=== PATIENT | male | born 1980 | race Caucasian/White ===

== ENCOUNTER 2019-02-24 21:15 | Emergency (ER) | payer BC, SELFPAY ==
[2019-02-24 21:19] VITALS: BP 121/72; PULSE 58; RESP 16; TEMP 36.8; O2SAT 99
--- NOTE | 2019-02-24 21:27 | DI.RAD_ITS ---
SYMPTOM/DIAGNOSIS: PAIN, S/P FALL LEFT FOOT: Three views. No bone or joint abnormality is identified. There does appear to be soft tissue swelling of the foot laterally. No radiopaque foreign bodies are seen in the foot. IMPRESSION: No acute fracture or dislocation. LEFT KNEE: Three views. No bone, joint or soft tissue abnormality is identified.
--- NOTE | 2019-02-24 21:31 | ED.GENADUL_ITS ---
Discharge Plan Disposition Patient Disposition: HOME Condition: Stable Discharge Details Chief Complaint: Orthopedic Clinical Impression: Contusion of foot, left, Contusion of left knee Primary Care Provider: Radhika Xiao ED Provider: Wilbur Valle Home Meds and New Rx's Prescriptions: No Action multivitamin [Daily Multi-Vitamin] 1 EACH tablet 1 tab PO DIRECTED RF: 0 ascorbic acid (vitamin C) [Vitamin C] 500 MG tablet 500 mg PO BID RF: 0 ferrous sulfate 325 MG tablet,delayed release (DR/EC) 1 tab PO BID RF: 0 cholecalciferol (vitamin D3) [Vitamin D3] 1,000 UNIT capsule 1,000 unit PO DAILY RF: 0 vitamin O59-hqgss acid 1 EACH tablet 1 ea PO DAILY RF: 0 omeprazole 40 MG capsule,delayed release(DR/EC) 40 mg PO DAILY RF: 0 clonidine HCl 0.1 mg Tablet 0.05 mg PO QHS RF: 0 sertraline [Zoloft] 20 mg/mL Concentrate 70 mg PO DAILY RF: 0 Discharge Instructions Instructions: Contusion in Adults (ED) Stand Alone Forms: Work Release Medical Decision Making 38 yo male states last week he was pushing a mower up with hill when he tripped and has had pain in medial left knee and foot since. Denies loc or hitting his head during fall or presyncope/syncope symptoms. Has no chest pain or pain elsewhere. He has full rom of the left hip, knee, ankle and toes with intact sensation and 2+ dp/pt pulses. Has pain over 4th and 5th mid metatarsals. Has pain over medial left knee. I suspect strain vs contusion but will xray to eval for fx xrays negative, will d/c and have him f/u with pcp if pain continues, return precautions given Differential Diagnosis sprain, strain, contusion, fx Imaging Data Radiologic Study: Attestation: I personally reviewed and interpreted this imaging study as follows: Imaging: X-Ray Radiologist's impression: no acute findings on foot xray Radiologic Study #2: Attestation: I personally reviewed and interpreted this imaging study as follows: Imaging: X-Ray Radiologist's impression: no acute findings on knee xray HPI General Mode of arrival: ambulatory . Date/Time Provider Initiated Documentation: 02/24/19 21:15 . Limitations to Documentation: no limitations . Information obtained by: patient . History of Present Illness 38 year old M presents to the emergency department with the chief complaint of left foot pain, described as moderate, Quality is described as aching, and is localized to the left and lower extremity. Patient reports no radiation. Patient started experiencing this day(s) (6) and it has been constant. No relieving factors improve symptom(s), and Rest improves symptom(s), Patient notes other (left knee pain). Patient did receive the following treatments prior to arrival, none Related Data Home Medications Medication Instructions Recorded Confirmed multivitamin [Daily Multi-Vitamin] 1 tab PO DIRECTED 03/02/13 01/07/18 ascorbic acid (vitamin C) [Vitamin 500 mg PO BID 11/26/16 01/07/18 C] cholecalciferol (vitamin D3) 1,000 unit PO DAILY 11/26/16 01/07/18 [Vitamin D3] ferrous sulfate 1 tab PO BID 11/26/16 01/07/18 vitamin D58-bndsx acid 1 ea PO DAILY 11/26/16 01/07/18 omeprazole 40 mg PO DAILY 05/29/17 01/07/18 clonidine HCl 0.05 mg PO QHS 02/24/19 02/24/19 sertraline [Zoloft] 70 mg PO DAILY 02/24/19 02/24/19 Allergies Allergy/AdvReac Type Severity Reaction Status Date / Time erythromycin base Allergy Intermediate Other (See Unverified 02/24/19 21:25 Comment) General Stated Complaint: Orthopedic DEWAYNE: 4 Review of Systems Review of Systems All systems reviewed & are unremarkable except as noted in HPI and below Constitutional Denies chills, Denies fever(s) and Denies weakness Cardiovascular Denies chest pain and Denies dyspnea Respiratory Denies cough and Denies dyspnea Gastrointestinal Denies abdominal pain, Denies nausea and Denies vomiting Neurologic Denies weakness PFSH Medical History Depression (Chronic) Surgical History History of gastric bypass (Acute) Social History Smoking/Tobacco Use Status: Never Alcohol Intake: current Alcohol Intake frequency: a few times a month Drug use: Never Do you feel safe in your relationship?: Yes Exam Const General: no acute distress Orientation: alert HENMT Head: normal to inspection Ears: external ears normal General nose exam: external nose normal Mouth: moist mucous membranes Eyes General: appearance normal, both eyes and all related structures Neck Neck: normal visual inspection Resp Effort & Inspection: normal respiratory effort and able to speak in complete sentences Cardio Rate: regular rate Skin General skin exam: no rashes or lesions noted Neuro General: alert and oriented x3 Extrem General: normal to inspection Psych Mental Status: mental status grossly normal Course Vital Signs Temperature 36.8 C 02/24/19 21:19 Pulse 58 L 02/24/19 21:19 Respiratory Rate 16 02/24/19 21:19 Blood Pressure 121/72 02/24/19 21:19 Pulse Oximetry 99 02/24/19 21:19 Temperature 36.8 C 02/24/19 21:19 Temperature Source Skin 02/24/19 21:19 Pulse 58 L 02/24/19 21:19 Respiratory Rate 16 02/24/19 21:19 Respiratory Effort Non-Labored 02/24/19 21:21 Blood Pressure 121/72 02/24/19 21:19 Pulse Oximetry 99 02/24/19 21:19 Pain Level 5 02/24/19 21:22
--- NOTE | 2019-02-24 22:16 | DI.VRAD_ITS ---
EXAM: XR Left Foot Complete EXAM DATE/TIME: 02/24/2019 10:07 PM CLINICAL HISTORY: 38 years old, male; Foot and knee; Left; Patient HX: Fall with L knee and lfoot pain TECHNIQUE: Imaging protocol: XR Left foot. Views: 3 or more views. COMPARISON: CR LEFT FOOT COMPLETE 12/26/2016 9:05 PM FINDINGS: Bones/joints: Typical for age. No evidence of acute fracture. Soft tissues: Unremarkable. IMPRESSION: No acute findings. Dictated and Authenticated by: Shashank Aden MD. Ordering:OZZY Bowles MD
--- NOTE | 2019-02-24 22:17 | DI.VRAD_ITS ---
EXAM: XR Left Knee EXAM DATE/TIME: 02/24/2019 10:07 PM CLINICAL HISTORY: 38 years old, male; Foot and knee; Left; Patient HX: Fall with L knee and lfoot pain TECHNIQUE: Imaging protocol: XR Left knee. Views: 3 views. COMPARISON: No relevant prior studies available. FINDINGS: Bones/joints: Typical for age. No evidence of acute fracture. Soft tissues: Unremarkable. IMPRESSION: No acute findings. Dictated and Authenticated by: Shashank Aden MD. Ordering:OZZY Bowles MD
== END 2019-02-24 22:38 | disposition home or self-care (01) ==
PROVIDERS: Emergency Provider Emergency Medicine; PCP Nurse Practitioner
DX: S80.02XA Contusion of left knee, initial encounter (principal); S90.32XA Contusion of left foot, initial encounter; W01.0XXA Fall on same level from slipping, tripping and stumbling without subsequent striking against object, initial encounter
CPT/HCPCS: 29505; 73562; 99284; 73630; 99282; L1810

== ENCOUNTER 2019-03-16 10:02 | Emergency (ER) | payer BC, SELFPAY ==
[2019-03-16 10:08] VITALS: BP 107/65; PULSE 66; RESP 16; TEMP 36.6; O2SAT 96
--- NOTE | 2019-03-16 10:27 | DI.RAD_ITS ---
SYMPTOM/DIAGNOSIS: CRUSH INJURY TO MCP OF 4TH DIGIT RIGHT HAND: No fracture or dislocation is seen. IMPRESSION: Negative right hand.
--- NOTE | 2019-03-16 10:28 | W.ED.GENAD ---
Discharge Plan Disposition Patient Disposition: HOME Condition: Stable Discharge Details Chief Complaint: Orthopedic Clinical Impression: Contusion of hand including fingers, Abrasion of hand Primary Care Provider: Radhika Xiao ED Provider: Andrew Jauregui Home Meds and New Rx's Prescriptions: Continued multivitamin [Daily Multi-Vitamin] 1 EACH tablet 1 tab PO DIRECTED RF: 0 ascorbic acid (vitamin C) [Vitamin C] 500 MG tablet 500 mg PO DAILY RF: 0 ferrous sulfate 325 MG tablet,delayed release (DR/EC) 1 tab PO DAILY RF: 0 cholecalciferol (vitamin D3) [Vitamin D3] 1,000 UNIT capsule 2,000 unit PO DAILY RF: 0 vitamin I23-fjfyp acid 1 EACH tablet 1 ea PO DAILY RF: 0 clonidine HCl 0.1 mg Tablet 0.1 mg PO QHS RF: 0 sertraline [Zoloft] 20 mg/mL Concentrate 100 mg PO DAILY RF: 0 Discharge Instructions Instructions: Contusion in Adults (ED), Abrasion (ED) Additional Instructions: He may continue the ice the area of injury along with use [id number] pain medication as needed for any further discomfort. For any new or significant worsening of symptoms feel free to return the emergency department otherwise follow-up with your primary care provider if not improving. Stand Alone Forms: Work Release Referrals: Radhika Xiao [Primary Care Provider] - (As needed for reassessment) Medical Decision Making Patient presenting to the emergency department for chief complaint of right hand injury. Patient states he was at work approximately 2 hours prior to arrival his hand was slammed into a gate door. Since then there was significant bleeding from a laceration which is now stopped bleeding but patient is still having discomfort to the MCP of the fourth digit. Patient denies any other injury or trauma. Patient does have slight abrasion to the dorsal and palmar aspect of the MCP, tenderness to the fourth MCP, and pain and discomfort with range of motion of the MCP. There is no rotation of the finger, sensation and pulse along with motor is intact. Plan to do radiological imaging to rule out fracture. Patient denies any need for pain medication pending result. Review of radiological imaging along with radiologist interpretation shows no acute findings noted. I feel the patient suffered small abrasion and contusion of the right hand. Patient was encouraged to continue to ice it and use any [id number] pain medication as needed for discomfort. Return precautions discussed. After discussion of diagnosis and plan of care patient has no further needs, questions, or concerns and states clear understanding to return to the emergency department for any worsening symptoms. HPI General Mode of arrival: ambulatory. Date/Time Provider Initiated Documentation: 03/16/19 10:11. Limitations to Documentation: no limitations. Information obtained by: patient and RN notes reviewed. History of Present Illness 38 year old M presents to the emergency department with the chief complaint of Right hand crush injury, described as mild, with intensity rated at 4. Quality is described as aching, and is localized to the right and upper extremity. Patient started experiencing this hour(s) (2) and it has been constant. Patient notes no other symptoms.. Patient did receive the following treatments prior to arrival, none Related Data Home Medications Medication Instructions Recorded Confirmed multivitamin [Daily Multi-Vitamin] 1 tab PO DIRECTED 03/02/13 03/16/19 ascorbic acid (vitamin C) [Vitamin 500 mg PO DAILY 11/26/16 03/16/19 C] cholecalciferol (vitamin D3) 2,000 unit PO DAILY 11/26/16 03/16/19 [Vitamin D3] ferrous sulfate 1 tab PO DAILY 11/26/16 03/16/19 vitamin H90-hlofq acid 1 ea PO DAILY 11/26/16 03/16/19 clonidine HCl 0.1 mg PO QHS 02/24/19 03/16/19 sertraline [Zoloft] 100 mg PO DAILY 02/24/19 03/16/19 Allergies Allergy/AdvReac Type Severity Reaction Status Date / Time erythromycin base Allergy Intermediate Other (See Unverified 03/16/19 10:16 Comment) General Stated Complaint: Orthopedic DEWAYNE: 3 Review of Systems Musculoskeletal Reports as per HPI, Denies deformity, Denies joint swelling, Denies limited range of motion, Denies numbness and Denies tingling Integumentary/Breasts Denies erythema, Denies rash, Denies sores and Reports wounds Neurologic Denies numbness and Denies tingling PFSH Medical History Depression (Chronic) Surgical History History of gastric bypass (Acute) Social History Smoking/Tobacco Use Status: Former Tobacco Use Alcohol Intake: current Alcohol Intake frequency: a few times a month Drug use: Never Do you feel safe in your relationship?: Yes Exam Const General: cooperative and no acute distress Orientation: alert, awake and oriented x3 Resp Effort & Inspection: normal respiratory effort and able to speak in complete sentences Cardio Rate: regular rate Rhythm: regular rhythm Extrem Right upper extremity: wrist Details: normal to inspection and normal ROM; no tenderness and hand Details: normal capillary refill, neuromotor exam normal, neurosensory exam normal, tendon exam normal, tenderness Location: of the 4th digit Location: at the MCP joint, abnormal ROM of finger Details: pain with active ROM Location: of the 4th digit and pain with passive ROM Location: of the 4th digit, no swelling and abrasion Location: of the 4th digit Location: at the MCP joint Course Vital Signs Temperature 36.6 C 03/16/19 10:08 Pulse 66 03/16/19 10:08 Respiratory Rate 16 03/16/19 10:08 Blood Pressure 107/65 03/16/19 10:08 Pulse Oximetry 96 03/16/19 10:08 Temperature 36.6 C 03/16/19 10:08 Temperature Source Tympanic 03/16/19 10:08 Pulse 66 03/16/19 10:08 Respiratory Rate 16 03/16/19 10:08 Respiratory Effort Non-Labored 03/16/19 10:13 Blood Pressure 107/65 03/16/19 10:08 Pulse Oximetry 96 03/16/19 10:08 Oxygen Delivery Method Room Air 03/16/19 10:08 Oxygen Flow Rate 0 03/16/19 10:08 Pain Level 5 03/16/19 10:13
--- NOTE | 2019-03-16 10:34 | ED.GENADUL_ITS ---
Discharge Plan Disposition Patient Disposition: HOME Condition: Stable Discharge Details Chief Complaint: Orthopedic Clinical Impression: Contusion of hand including fingers, Abrasion of hand Primary Care Provider: Radhika Xiao ED Provider: Andrew Jauregui Home Meds and New Rx's Prescriptions: Continued multivitamin [Daily Multi-Vitamin] 1 EACH tablet 1 tab PO DIRECTED RF: 0 ascorbic acid (vitamin C) [Vitamin C] 500 MG tablet 500 mg PO DAILY RF: 0 ferrous sulfate 325 MG tablet,delayed release (DR/EC) 1 tab PO DAILY RF: 0 cholecalciferol (vitamin D3) [Vitamin D3] 1,000 UNIT capsule 2,000 unit PO DAILY RF: 0 vitamin I86-kzqzy acid 1 EACH tablet 1 ea PO DAILY RF: 0 clonidine HCl 0.1 mg Tablet 0.1 mg PO QHS RF: 0 sertraline [Zoloft] 20 mg/mL Concentrate 100 mg PO DAILY RF: 0 Discharge Instructions Instructions: Contusion in Adults (ED), Abrasion (ED) Additional Instructions: He may continue the ice the area of injury along with use [id number] pain medication as needed for any further discomfort. For any new or significant worsening of symptoms feel free to return the emergency department otherwise follow-up with your primary care provider if not improving. Stand Alone Forms: Work Release Referrals: Radhika Xiao [Primary Care Provider] - (As needed for reassessment) Medical Decision Making Patient presenting to the emergency department for chief complaint of right hand injury. Patient states he was at work approximately 2 hours prior to arrival his hand was slammed into a gate door. Since then there was significant bleeding from a laceration which is now stopped bleeding but patient is still having discomfort to the MCP of the fourth digit. Patient denies any other injury or trauma. Patient does have slight abrasion to the dorsal and palmar aspect of the MCP, tenderness to the fourth MCP, and pain and discomfort with r yolie of motion of the MCP. There is no rotation of the finger, sensation and pulse along with motor is intact. Plan to do radiological imaging to rule out fracture. Patient denies any need for pain medication pending result. Review of radiological imaging along with radiologist interpretation shows no acute findings noted. I feel the patient suffered small abrasion and contusion of the right hand. Patient was encouraged to continue to ice it and use any [id number]-ffwirsz pain medication as needed for discomfort. Return precautions discussed. After discussion of diagnosis and plan of care patient has no further needs, questions, or concerns and states clear understanding to return to the emergency department for any worsening symptoms. HPI General Mode of arrival: ambulatory . Date/Time Provider Initiated Documentation: 03/16/19 10:11 . Limitations to Documentation: no limitations . Information obtained by: patient and RN notes reviewed . History of Present Illness 38 year old M presents to the emergency department with the chief complaint of Right hand crush injury, described as mild, with intensity rated at 4. Quality is described as aching, and is localized to the right and upper extremity. Patient started experiencing this hour(s) (2) and it has been constant. Patient notes no other symptoms.. Patient did receive the following treatments prior to arrival, none Related Data Home Medications Medication Instructions Recorded Confirmed multivitamin [Daily Multi-Vitamin] 1 tab PO DIRECTED 03/02/13 03/16/19 ascorbic acid (vitamin C) [Vitamin 500 mg PO DAILY 11/26/16 03/16/19 C] cholecalciferol (vitamin D3) 2,000 unit PO DAILY 11/26/16 03/16/19 [Vitamin D3] ferrous sulfate 1 tab PO DAILY 11/26/16 03/16/19 vitamin B73-cjwpw acid 1 ea PO DAILY 11/26/16 03/16/19 clonidine HCl 0.1 mg PO QHS 02/24/19 03/16/19 sertraline [Zoloft] 100 mg PO DAILY 02/24/19 03/16/19 Allergies Allergy/AdvReac Type Severity Reaction Status Date / Time erythromycin base Allergy Intermediate Other (See Unverified 03/16/19 10:16 Comment) General Stated Complaint: Orthopedic DEWAYNE: 3 Review of Systems Musculoskeletal Reports as per HPI, Denies deformity, Denies joint swelling, Denies limited range of motion, Denies numbness and Denies tingling Integumentary/Breasts Denies erythema, Denies rash, Denies sores and Reports wounds Neurologic Denies numbness and Denies tingling PFSH Medical History Depression (Chronic) Surgical History History of gastric bypass (Acute) Social History Smoking/Tobacco Use Status: Former Tobacco Use Alcohol Intake: current Alcohol Intake frequency: a few times a month Drug use: Never Do you feel safe in your relationship?: Yes Exam Const General: cooperative and no acute distress Orientation: alert, awake and oriented x3 Resp Effort & Inspection: normal respiratory effort and able to speak in complete sentences Cardio Rate: regular rate Rhythm: regular rhythm Extrem Right upper extremity: wrist Details: normal to inspection and normal ROM; no tenderness and hand Details: normal capillary refill, neuromotor exam normal, neurosensory exam normal, tendon exam normal, tenderness Location: of the 4th digit Location: at the MCP joint, abnormal ROM of finger Details: pain with active ROM Location: of the 4th digit and pain with passive ROM Location: of the 4th digit, no swelling and abrasion Location: of the 4th digit Location: at the MCP joint Course Vital Signs Temperature 36.6 C 03/16/19 10:08 Pulse 66 03/16/19 10:08 Respiratory Rate 16 03/16/19 10:08 Blood Pressure 107/65 03/16/19 10:08 Pulse Oximetry 96 03/16/19 10:08 Temperature 36.6 C 03/16/19 10:08 Temperature Source Tympanic 03/16/19 10:08 Pulse 66 03/16/19 10:08 Respiratory Rate 16 03/16/19 10:08 Respiratory Effort Non-Labored 03/16/19 10:13 Blood Pressure 107/65 03/16/19 10:08 Pulse Oximetry 96 03/16/19 10:08 Oxygen Delivery Method Room Air 03/16/19 10:08 Oxygen Flow Rate 0 03/16/19 10:08 Pain Level 5 03/16/19 10:13
[2019-03-16 11:03] VITALS: BP 127/76; PULSE 67; RESP 18; O2SAT 95
== END 2019-03-16 11:02 | disposition home or self-care (01) ==
PROVIDERS: Emergency Provider Nurse Practitioner Family; PCP Nurse Practitioner
DX: S67.21XA Crushing injury of right hand, initial encounter (principal); S60.511A Abrasion of right hand, initial encounter; Y99.0 Civilian activity done for income or pay; W23.0XXA Caught, crushed, jammed, or pinched between moving objects, initial encounter
CPT/HCPCS: 99283; 73130

== ENCOUNTER 2020-03-07 16:28 | Emergency (ER) | payer BC, SELFPAY ==
[2020-03-07 16:40] VITALS: BP 116/77; PULSE 66; RESP 20; TEMP 36.6; O2SAT 98
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
[2020-03-07] MEDS: Acetaminophen 500 MG TAB 1000 MG PO (17:33)
[2020-03-07] MEDS: oxyCODONE 5 MG TAB PO (17:33)
[2020-03-07 18:42] VITALS: BP 126/83; PULSE 58; RESP 18; TEMP 36.9; O2SAT 98
[2020-03-07] MEDS: Bacitracin 30 GM TUBE (18:43)
[2020-03-07 18:53] VITALS: BP 126/83; PULSE 58; RESP 18; TEMP 36.9; O2SAT 98
== END 2020-03-07 18:55 | disposition home or self-care (01) ==
PROVIDERS: Emergency Provider Physician Assistant; PCP Nurse Practitioner
DX: T24.212A Burn of second degree of left thigh, initial encounter (principal); T21.12XA Burn of first degree of abdominal wall, initial encounter; T31.0 Burns involving less than 10% of body surface; X10.0XXA Contact with hot drinks, initial encounter
CPT/HCPCS: 16020; 99283

== ENCOUNTER 2020-06-27 22:41 | Outpatient (REF) | payer BC, SELFPAY ==
[2020-06-27 19:03] LABS: HCT 39.8 % (40.0-50.0); HGB 13.1 g/dL (13.5-17.5); MCH 30.6 pg (27.0-33.0); MCHC 32.9 % (32.0-36.0); MPV 10.4 fL (8.0-11.0); Platelet Count 235 10^3/uL (130-400); RBC 4.28 10^6/uL (4.36-5.78); RDW 12.3 % (11.8-14.1); RDW-SD 42.2 fL; WBC 4.83 10^3/uL (4.4-10.8)
[2020-06-27 19:54] LABS: Vitamin D 25 Total 33.2 ng/ml (30-100)
[2020-06-27 20:12] LABS: ALT 47 U/L (16-63); AST 32 U/L (15-37); Albumin 3.9 g/dL (3.4-5.0); Alkaline Phosphatase 99 U/L (46-116); BUN 14 mg/dL (7-18); Bilirubin, Total 0.2 mg/dL (0.2-1.0); CREATININE 0.87 mg/dL (0.70-1.30); Calcium 8.8 mg/dL (8.5-10.1); Chloride 105 mmol/L (98-107); Glucose 98 mg/dL (74-106); Potassium 4.4 mmol/L (3.5-5.1); Sodium 142 mmol/L (136-145); Vitamin B12 917 pg/mL (193-986)
[2020-06-27 20:13] LABS: Folate > 20.0 ng/mL (8.6-20.0)
== END 2020-06-27 23:01 ==
LOC: NCHCN 22:41
PROVIDERS: PCP Nurse Practitioner; Visit Provider Nurse Practitioner
DX: D50.9 Iron deficiency anemia, unspecified (principal); E78.5 Hyperlipidemia, unspecified; E66.9 Obesity, unspecified; Z98.84 Bariatric surgery status
CPT/HCPCS: 80053; 82306; 85027; 82607; 82746

== ENCOUNTER 2020-06-28 12:23 | Outpatient (CLI) | payer BC, SELFPAY ==
--- NOTE | 2020-06-28 | DI.RAD_ITS ---
EXAM: XR KNEE RT 3V AP,LAT,DAMIEN CLINICAL HISTORY: KNEE PAIN, M25.569. TECHNIQUE: 2D digital imaging was performed. COMPARISON: CR XR knee LT 3V AP,lat,damien from 02/24/2019 FINDINGS: BONES: No acute fracture is present. No bony destructive lesion is seen. JOINTS: The knee is normally aligned. No joint effusion is seen. The joint spaces are well maintained . There is mild spurring at the medial femoral condyle and medial tibial plateau as well as tibial s pines. There is minimal spurring at the articular aspect of the patella. SOFT TISSUE: Normal. IMPRESSION: Mild degenerative changes of the right knee. DATA REPOSITORY: RADIATION DOSE DELIVERED:
--- NOTE | 2020-06-28 15:16 | DI.RAD_ITS ---
EXAM: XR KNEE LT 3V AP,LAT,DAMIEN CLINICAL HISTORY: KNEE PAIN, M25.569. TECHNIQUE: 2D digital imaging was performed. COMPARISON: CR XR KNEE RT 3V AP,LAT,DAMIEN from 06/28/2020 FINDINGS: BONES: No acute fracture is present. No bony destructive lesion is seen. JOINTS: The knee is normally aligned. No joint effusion is seen. Joint spaces are well maintained. SOFT TISSUE: Normal. IMPRESSION: Normal radiographs of the left knee. DATA REPOSITORY: RADIATION DOSE DELIVERED:
== END 2020-06-28 12:43 ==
PROVIDERS: PCP Nurse Practitioner; Visit Provider Nurse Practitioner
DX: M25.562 Pain in left knee (principal); M25.561 Pain in right knee; M77.8 Other enthesopathies, not elsewhere classified
CPT/HCPCS: 73562

== ENCOUNTER 2020-07-01 14:21 | Outpatient (REF) | payer BC, SELFPAY ==
[2020-07-04 07:12] LABS: Patient Race White; SARS-CoV-2 RNA Undetected (Undetected); SARS-CoV-2 Specimen Source Nasopharynx
== END 2020-07-01 14:41 ==
LOC: NCHCN 14:21
PROVIDERS: PCP Nurse Practitioner; Visit Provider Nurse Practitioner Family
DX: Z11.59 Encounter for screening for other viral diseases (principal)
CPT/HCPCS: U0003

== ENCOUNTER 2020-07-27 14:04 | Outpatient (CLI) | payer BC, SELFPAY ==
--- NOTE | 2020-07-27 14:01 | DI.RAD_ITS ---
EXAM: XR KNEES MERCHANT ONLY INDICATION: Bilateral knee pain. COMPARISON: CR XR KNEE RT 3V AP,LAT,DAMIEN from 06/28/2020 CR XR KNEE LT 3V AP,LAT,DAMIEN from 06/28/2020 TECHNIQUE: 2D digital imaging was performed. FINDINGS: Bilateral Merchant views were obtained. There is normal alignment of the patella. The soft tissues are unremarkable. The bones are normally mineralized. IMPRESSION: DATA REPOSITORY: RADIATION DOSE DELIVERED:
== END 2020-07-27 14:24 ==
PROVIDERS: PCP Nurse Practitioner; Referring Provider Nurse Practitioner; Visit Provider Student in an Organized Health Care Education/Training Program
DX: M25.561 Pain in right knee (principal); M25.562 Pain in left knee
CPT/HCPCS: 73565

== ENCOUNTER 2020-12-08 23:34 | Outpatient (REF) | payer BC, SELFPAY ==
[2020-12-08 17:58] LABS: HCT 40.6 % (40.0-50.0); HGB 13.1 g/dL (13.5-17.5); MCH 30.3 pg (27.0-33.0); MCHC 32.3 % (32.0-36.0); Platelet Count 245 10^3/uL (130-400); RBC 4.32 10^6/uL (4.36-5.78); RDW 12.1 % (11.8-14.1); RDW-SD 42.3 fL; WBC 6.08 10^3/uL (4.4-10.8)
== END 2020-12-08 23:35 | disposition home or self-care (01) ==
LOC: NCHCN 23:34
PROVIDERS: PCP Nurse Practitioner; Visit Provider Nurse Practitioner
DX: D50.9 Iron deficiency anemia, unspecified (principal); Z98.84 Bariatric surgery status
CPT/HCPCS: 85027

== ENCOUNTER 2021-06-06 09:58 | Outpatient (REF) | payer BC, SELFPAY ==
[2021-06-06 17:30] LABS: Iron 92 ug/dL (65-175); Total Iron Binding Capacity 349 ug/dL (250-450); Transferrin Sat 26 % (20-55)
[2021-06-06 17:47] LABS: ALT 50 U/L (16-63); AST 25 U/L (15-37); Albumin 3.9 g/dL (3.4-5.0); Alkaline Phosphatase 85 U/L (46-116); Anion Gap 8.4 mmol/L (3-11); BUN 16 mg/dL (7-18); Bilirubin, Total 0.5 mg/dL (0.2-1.0); CO2 28.6 mmol/L (21.0-32.0); CREATININE 0.8 mg/dL (0.70-1.30); Calcium 8.7 mg/dL (8.5-10.1); Calculated LDL 129 mg/dL (<100); Chloride 105 mmol/L (98-107); Cholesterol 189 mg/dL (<200); Folate 13.2 ng/mL (8.6-20.0); Glucose 85 mg/dL (74-106); HDL Cholesterol 49 mg/dL (40-60); Potassium 4.2 mmol/L (3.5-5.1); Sodium 142 mmol/L (136-145); Total Protein 6.9 g/dL (6.4-8.2); Triglyceride 57 mg/dL (<150); Vitamin B12 862 pg/mL (193-986)
== END 2021-06-06 09:59 | disposition home or self-care (01) ==
LOC: NCHCN 09:58
PROVIDERS: PCP Nurse Practitioner; Referring Provider Nurse Practitioner; Visit Provider Nurse Practitioner
DX: D50.9 Iron deficiency anemia, unspecified (principal); E78.5 Hyperlipidemia, unspecified; Z98.84 Bariatric surgery status
CPT/HCPCS: 80053; 80061; 82607; 82746; 83540; 83550

== ENCOUNTER 2022-06-29 08:48 | Emergency (ER) | payer BC, SELFPAY ==
[2022-06-29 09:03] VITALS: BP 133/78; PULSE 81; RESP 20; TEMP 37; O2SAT 98
--- NOTE | 2022-06-29 09:40 | ED.GENADUL_ITS ---
Discharge Plan Disposition Patient Disposition: [facility] [place] Condition: Serious Discharge Details Clinical Impression: Suicidal ideation Primary Care Provider: Radhika Xiao ED Provider: Phuc Huizar Home Meds and New Rx's Prescriptions: No Action sertraline 100 mg tablet 200 mg PO DAILY multivitamin [Daily Multi-Vitamin] 1 EACH tablet 1 tab PO DIRECTED Label Comments: ascorbic acid (vitamin C) [Vitamin C] 500 MG tablet 500 mg PO DAILY ferrous sulfate 325 MG tablet,delayed release (DR/EC) 1 tab PO DAILY cholecalciferol (vitamin D3) [Vitamin D3] 1,000 UNIT capsule 2,000 unit PO DAILY vitamin [id number]-[id number] acid 1 EACH tablet 1 ea PO DAILY clonidine HCl 0.1 mg Tablet 0.1 mg PO QHS Medical Decision Making <Andrew Jauregui NP - Last Filed: 06/30/22 08:05> Patient presenting to the emergency department for chief complaint of severe depression and suicidal thoughts with plan. Patient reports that he is going through a separation which has worsened his depression now causing suicidal thoughts of either having a major motor vehicle accident or self-inflicted gun wound. Patient reports that he has not acted upon any of these thoughts due to having children and the effects of that would have on them. Patient is here with coworker that he is confided in on how he is feeling and is seeking voluntary help and/or inpatient admission. Patient appears anxious but is cooperative he is forthcoming with information and denies any medical complaints. Smart form filled out and I do not feel that patient requires any medical labs and is medically clear otherwise as I do not feel that there is any metabolic or medical source to patient's complaint today. We will perform COVID testing for clearance for voluntary psychiatric admission and page mental health crisis screeners to further discuss treatment plan with patient. Discussed plan of care with mental health screener who also agrees with voluntary admission for severe depression with suicidal ideation. <MC Isabel - Last Filed: 06/30/22 00:36> Patient presenting to the emergency department for chief complaint of severe depression and suicidal thoughts with plan. Patient reports that he is going through a separation which has worsened his depression now causing suicidal thoughts of either having a major motor vehicle accident or self-inflicted gun wound. Patient reports that he has not acted upon any of these thoughts due to having children and the effects of that would have on them. Patient is here with coworker that he is confided in on how he is feeling and is seeking voluntary help and/or inpatient admission. Patient appears anxious but is cooperative he is forthcoming with information and denies any medical complaints. Smart form filled out and I do not feel that patient requires any medical labs and is medically clear otherwise as I do not feel that there is any metabolic or medical source to patient's complaint today. We will perform COVID testing for clearance for voluntary psychiatric admission and page mental health crisis screeners to further discuss treatment plan with patient. Discussed plan of care with mental health screener who also agrees with voluntary admission for severe depression with suicidal ideation. Gill Cruz care transition myself from Andrew Jauregui NP. Please see his initial note regarding history, presentation and exam. In brief, patient is a pleasant 42-year-old male with history of depression presenting today with acute social stressors. 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 Has plan to harm self either self-inflicted gunshot wound or driving car into something. He does have access to both. Patient is seeking a voluntary placement for his exacerbation of his depression and suicidal ideation. He is forward thinking. at the time I assumed care, awaiting placement. Patient has had his assessment with mental health. , Patient has remained comfortable and pleasant. Continues to seek voluntary placement. He has had a one-to-one sitter. We are contacted by [facility] was able assess the patient this evening. However, we are unable to arrange for transport. Patient aware that he was sleeping tonight with plans that he be tr ansported via [facility] tomorrow morning at 7. Patient given 1 mg of p.o. Ativan to help with anxiety and rest. At the end of my shift, care transition to Dr. Huizar with disposition and transfer pending. HPI <Andrew Jauregui NP - Last Filed: 06/30/22 08:05> General Mode of arrival: ambulatory . Date/Time Provider Initiated Documentation: 06/29/22 08:52 . Limitations to Documentation: no limitations . Information obtained by: patient . History of Present Illness 42 year old M presents to the emergency department with the chief complaint of Severe depress ion and suicidal thoughts, described as severe, Quality is described as other (Denies pain or discomfort), Patient started experiencing this month(s) and it has been constant and intermittent. No relieving factors improve symptom(s), Other factors that worsen symptoms (Social situation) . Patient notes no other symptoms.. Patient did receive the following treatments prior to arrival, none Related Data Home Medications Medication Instructions Recorded Confirmed multivitamin (Daily Multi-Vitamin 1 tab PO DIRECTED 03/02/13 06/29/22 tablet) ascorbic acid (vitamin C) 500 mg 500 mg PO DAILY 11/26/16 06/29/22 tablet (Vitamin C) cholecalciferol (vitamin D3) 25 2,000 unit PO DAILY 11/26/16 06/29/22 mcg (1,000 unit) capsule (Vitamin D3) ferrous sulfate 325 mg (65 mg 1 tab PO DAILY 11/26/16 06/29/22 iron) tablet,delayed release vitamin B12 500 mcg-folic acid 400 1 ea PO DAILY 11/26/16 06/29/22 mcg tablet clonidine HCl 0.1 mg tablet 0.1 mg PO QHS 02/24/19 06/29/22 sertraline 100 mg tablet 200 mg PO DAILY 07/27/20 06/29/22 Allergies Allergy/AdvReac Type Severity Reaction Status Date / Time erythromycin base AdvReac Intermediate gets Unverified 06/29/22 15:48 burning sensation General Stated Complaint: PsychEval DEWAYNE: 2 Review of Systems <Andrew Jauregui NP - Last Filed: 06/30/22 08:05> Narrative: 8 systems reviewed and unremarkable except what is marked below. 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) Medical History (Updated 06/30/22 @ 00:36 by MC Isabel) Depression Surgical History History of gastric bypass Social History Smoking/Tobacco Use Status: Current every day Smoking risk assessment performed?: Yes Alcohol Intake: current Alcohol Intake frequency: a few times a month Drug use: Never Substance use type: does not use Current gender identity: male Do you feel safe in your relationship?: Yes Exam <Andrew Jauregui NP - Last Filed: 06/30/22 08:05> Const General: cooperative Orientation: alert, awake and oriented x3 Limitations: mental status not altered HENMT Head: normal to inspection, normocephalic and atraumatic Ears: hearing grossly normal bilaterally Mouth: moist mucous membranes Eyes General: appearance normal, both eyes and all related structures Pupils: PERRL EOM: EOM intact bilaterally Resp Effort & Inspection: normal respiratory effort, able to speak in complete sentences and no respiratory distress Auscultation: clear to auscultation bilaterally Cardio Rate: regular rate and not tachycardic Rhythm: regular rhythm Heart Sounds: S1 normal, S2 normal, no click, no gallops, no murmurs and no rubs Neuro General: patient alert, patient awake, patient oriented x3, gait normal, moves all extremities and no focal motor deficits Cognition: normal cognition Speech: speech normal Psych Appearance: grossly normal Mental Status: mental status grossly normal Speech and Movement: speech and movement normal and speech clear Mood: anxious mood Affect: sad, anxious affect and blunted Attitude: cooperative and avoids eye contact Thought Process: normal Thought Content: normal and suicidality Insight: insight good Judgment: judgment good Course <TERA Zamudio Last Filed: 06/30/22 08:05> Vital Signs Vital signs: Vital Signs Temperature 37.0 C 06/29/22 09:03 Pulse 81 06/29/22 09:03 Respiratory Rate 20 06/29/22 09:03 Blood Pressure 133/78 06/29/22 09:03 Pulse Oximetry 98 06/29/22 09:03 Temperature 37.0 C 06/29/22 09:03 Temperature Source Temporal Artery Scan 06/29/22 09:03 Pulse 81 06/29/22 09:03 Respiratory Rate 20 06/29/22 09:03 Respiratory Effort Non-Labored 06/29/22 09:19 Blood Pressure 133/78 06/29/22 09:03 Blood Pressure Position Sitting 06/29/22 09:03 Pulse Oximetry 98 06/29/22 09:03 Oxygen Delivery Method Room Air 06/29/22 09:03 Oxygen Flow Rate 0 06/29/22 09:03 Pain Level 0 06/29/22 09:03 Sign Out <Andrew Jauregui NP - Last Filed: 06/30/22 08:05> Sign Out Data: Sign Out Comment: Voluntary psychiatric admission pending psychiatric bed availability. Last updated by Andrew Jauregui NP at 06/29/22 16:08 Sign Out Comment: Care transition to Dr. Huizar with disposition pending. Plan to transition to the [facility] tomorrow morning at 7 AM for continued care Accepting . Last updated by Gill Cruz PA at 06/30/22 00:48 PAWSS <Andrew Jauregui NP - Last Filed: 06/30/22 08:05> Have you Been Recently Intoxicated or Drunk Within the Last 30 days?: Yes Have you Ever Experienced Previous Episodes of Alcohol Withdrawal?: No Have you ever Experienced Withdrawal Seizures?: No Have you ever Experienced Delirium Tremens(DT)s?: No Have you ever undergone Alcohol Rehabilitation Treatment (i.e, inpt ot outpatient treatment programs)?: No Have you ever Experienced Blackouts?: No Have you ever Combined Alcohol with other Downers within the last 90 days?: No Have you ever Combined Alcohol with any other Substance of Abuse during the last 90 days?: No Result: 1 <MC Isabel - Last Filed: 06/30/22 00:36> Result: 1
[2022-06-29] MEDS: LORazepam 0.5 MG TAB PO (09:44)
[2022-06-29 09:56] LABS: Source Nasal/Nares
--- NOTE | 2022-06-29 10:01 | NUR.NOTE ---
patient wanted to speak with data analyst report writer about his concerns for missing a day of work while being in the ED. This data analyst report writer gave him options of using a phone to contact the HR department at his job and speak to them about FMLA options. Patient refused a phone he stated I just want to go to work so I don't lose my job. Being here (In the ED) is making my life worse not better
--- NOTE | 2022-06-29 14:33 | PDOC.MHCN_ITS ---
Date of service: 06/29/22 Time of Service: 10:10 PHQ-9 Over the last 2 weeks, how often have you been bothered by any of the following problems? 1. Little interest or pleasure in doing things: nearly every day 2. Feeling down, depressed, or hopeless: nearly every day 3. Trouble falling or staying asleep, or sleeping too much: nearly every day 4. Feeling tired or having little energy: nearly every day 5. Poor appetite or overeating: nearly every day 6. Feeling bad about yourself - or that you are a failure or have let yourself and your family down: nearly every day 7. Trouble concentrating on things, such as reading the newspaper or watching television: more than half the days 8. Moving or speaking so slowly that other people could have noticed? - Or the opposite - being so fidgety or restless that you have been moving around a lot more than usual: nearly every day 9. Thoughts that you would be better off or of hurting yourself in some way: nearly every day Total score: 26 If you checked off any problems, how difficult have these problems made it for you to do your work, take care of things at home, or get along with other people?: extremely difficult Source: Developed by Drs. Hal Veliz, Britany Blanco, Rodolfo Khan and colleagues, with an educational mallorie from [employer]. Suicide Severity Rate CSSRS Have you wished you were or wished you could go to sleep and not wake up?: Yes Have you actually had any thoughts of killing yourself?: Yes CSSRS2 Have you been thinking about how you might do this?: Yes Have you had these thoughts and had some intention of acting on them?: Yes Have you started to work out or worked out the details of how to kill yourself? Do you intend to carry out this plan?: Yes CSSRS3 Have you ever done anything, started to do anything or prepared to do anything to end your life?: No CSSRS4 Was this within the past three months?: No Screening Score Total Score: 4 Screening: Positive Mental Health Emergency Note Release [facility] release signed:: Yes Reason for Visit Client is unknown to [facility] prior to completing intake paperwork today. Client presented to [facility] ED via peer it support technician from the [place] [employer] [facility] [employer]. Client disclosed to peer it support technician that he has been having persistent suicidal ideations for the past 3 months with high intent and plan to by suicide via firearm. Client also reports that he has been struggling with depression and excessive alcohol use. Client scored a 26 on the PHQ-9 rating scale. Client reports that he has no history of crisis involvement and reports that he has never been hospitalized for mental health. In the last 2 weeks has the pt presented for ES prior to today?: No Client Information Client is: New ([facility] intake paperwork complete with client via zoom. ) Well Housed: Yes Non Suicidal Self Injury Current: No History: No Safety Risk/Harm to Self or Others Current Ideation to Harm Self or Others: Yes to self. (Client currently endorsing SI, rating intent 7/10 with plan to shoot himself or drive car at a high rate of speed into a tree. ) Intent: yes, has intent. Plan: yes,has a plan. History of suicide attempt: No history of suicide attempt reported Risk: Does risk to harm exist?: yes. Risk: High Risk Duty to warn indicated: No Asssessment/Mental Status Appearance: Unremarkable Attitude: Cooperative Behavior: Unremarkable Speech: Soft Affect: Flat and Cogruent with mood Mood: Sad, Stressed, Depressed and Anxious Thought process: Unremarkable Hallucinations: No Delusions: No Attention: Unremarkable Perception: Not impaired Orientation: Fully orientated Memory: Intact Insight: Poor Judgement: Poor Neurovegetative Symptoms Sleep: Decrease (Client reports that he gets about 2 hours of interrupted sleep daily.) Appetitie: Decrease (Client reports that he eats 1 meal daily, at times not even a full meal. ) Interests: Decrease (Client reports that he has no interest in doing anything, e kyra in things that used to bring him hemalatha. ) Energy: Decrease (Client reports very low energy. ) Libido: Not applicable Substance Use: ETOH dependence (Client reports on the weekends and his days off he drinks alcohol in excess. Client reports that he drinks 18-20 16 oz beers on these days.) Do you use nicotine?: No Have you used substances in the last 7 days?: yes, Client reports that he used alcohol last Saturday and drank approximately 18-20 cans of beer. Additional Issues: Assaultive/Threatening Behavior: No Medical Concerns: No Client engaged in active self harm w/weapon: No Threatening to run away: No Child reported abuse/neglect: No Voluntarily presenting for services: Yes Domestic violence is a concern: No Extreme Psychosis or extreme behavior is present: No Impression Client is a 42 y/o male, living at home with is and children. 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 Client was seen by this marketing writer via zoom at [facility] ED. Client presented with symptoms most congruent with major depressive disorder, as evidenced by self- report that he has been experiencing increased depression and persistent suicidal ideations. Client reports that he has decreased appetite eating only one meal daily and decreased interrupted sleep averaging about 2 hours daily. Client reports that he has been withdrawn and shown decrease interest and energy in things that he used to enjoy. Client reports that he does not even enjoy spending time with his children anymore, which used to bring him a lot of hemalatha. During assessment with this marketing writer client discloses that he has thought many times of driving his car at a high rate of speed into a tree or shooting himself with a firearm to intentionally by suicide. Client reports intent on a scale of 7/10. Client reports that these intrusive thoughts began approximately 3 months ago and have been getting increasingly worse. Client reports that he has been utilizing his natural supports and outpatient services, however these have not been beneficial and the thoughts have been getting worse. Client is not future oriented, however is willing and open to accepting inpatient treatment to stabilize medications, learn coping skills, and decrease suicidal ideations. Plan/Disposition Recommended Disposition: Hospitalization (Referrals will be faxed to [facility], [facility], , and [facility]. ) facilities contacted. Plan: Client will remain at [facility] pending admission to an inpatient facility. Referrals will be faxed to [facility], [facility], , and [facility]. Client will be re-assessed by [facility] daily until placement is secured or clients acuity level decreases and he is able to be safety planned home. Facilities contacted if Applicable [facility] (Send referral) Not accepted, No bed available [facility] Not accepted, No bed available [facility] Not accepted, No bed available, [facility] Not accepted, Other (Will review referral. ) Reports/communication Outcome discussed with: ED/Personnel (Verbal passover given to [facility] ED provider Shanai. ) Final Disposition/Discharge Transportation Checklist completed and faxed: No
[2022-06-29 16:22] LABS: COVID-19 PCR Negative (Negative)
--- NOTE | 2022-06-29 17:01 | PDOC.CMSAFED ---
- If Service Date Differs Date of service: 06/29/22 Time of Service: 17:01 Care Management Safety Plan Status: Voluntary - Reason for Wait Reason for Wait: Inpatient Admission VOLUNTARY FOR INPATIENT PSYCHIATRIC STABILIZATION. Patient is appropriate in all interactions since arriving at [facility]; Pt has demonstrated appropriate coping and communication skills, has articulated his or her needs and concerns and is fully engaged during staff interactions. Konstantin has verbalized want and need for inpatient psychiatric stabilization related to external relationship stressors, and ongoing depression with SI. He expressed preferring to transfer to facility other than [facility], related to population concerns he perceives related to his occupation. Safety plan has been established with patient, and care team, to adhere to patient goals, identify restrictions based on behavioral status, address nutrition, and determine allowed personal belongings, tools for hygiene and personal care. Determine level of activity including ambulation, level of supervision, visitors, and determine privileges based on behaviors and level of engagement by pt. SAFETY PLAN: 1. Will remain on suicide precautions. In Paper Clothes; permitted to wear patient's own clothing due to patient's willingness to engage, appropriate behavior and body habitus (paper clothes uncomfortable). 2. Will remain in room under direct supervision of one-on-one staff at all times provided by [employer]; MIGUEL, NUCLEAR CHEMISTRY TECHNICIAN ore trimmer. 3. May have paper cups, plates, finger foods as well as a cardboard spoon with which to eat meals. 4. Follow [facility] Management of the Admitted Behavioral Health Patient policy. 5. Comfort bath system only, shower permitted with escort at RN discretion. 6. Personal belongings: permitted patient's own ring, watch and cell phone. 7. Visitors-per [facility] visitor policy and at RN discretion. 8. Activities: television, remote and soft cart items approved per RN discretion. 9. Bathroom privileges with escort in the ED, available in room without limitation on M/S. 10. Phone: permitted patient's own cell phone and cordless phone at RN discretion. 11. Due to VOLUNTARY status, if patient wishes to leave [facility], staff will contact [facility] Crisis Screener ([phone]) and On-Call Costume Designer ([phone]) as soon as possible. In the event of elopement, notify [facility] Police ([phone]). Patient is currently voluntarily at [facility] and seeking inpatient admission when a bed becomes available. [facility] Frontline Beef Cattle Grazier will continue seeking placement. Please contact the Adhesive Bandage Machine Operator Costume Designer ([phone]) and [facility] Beef Cattle Grazier ([phone]) for any needed changes in the Safety Plan. Safety plan has been provided to interdepartmental care team.
--- NOTE | 2022-06-29 20:58 | NUR.NOTE ---
Did the nurse to nurse report with Mallory SMART at [facility] today 06/29/2022 at 1915, They have accepted him and have a bed for him, they have requested that we call them when he leaves our facility. QING
[2022-06-29] MEDS: LORazepam 1 MG TAB PO (21:10)
--- NOTE | 2022-07-02 09:07 | CMPROGNOTE_ITS ---
- If Service Date Differs Date of service: 07/02/22 Time of Service: 09:07 Care Management Progress Note Patient discharged to [facility] Saturday. - MH Services (Omit if N/A) Current MH Services: Psychiatric Inp ([place] [facility]) - Status Status: Voluntary
--- NOTE | 2022-07-02 09:07 | PDOC.ERCMPRO ---
- If Service Date Differs Date of service: 07/02/22 Time of Service: 09:07 Care Management Progress Note Patient discharged to [facility] Saturday. - MH Services (Omit if N/A) Current MH Services: Psychiatric Inp ([place] via [facility]) - Status Status: Voluntary
== END 2022-06-30 08:05 | disposition short-term general hospital (02) ==
PROVIDERS: Nurse Practitioner Family; Emergency Provider Student in an Organized Health Care Education/Training Program; PCP Nurse Practitioner
DX: F32.A Depression, unspecified (principal); R45.851 Suicidal ideations; F17.200 Nicotine dependence, unspecified, uncomplicated; Z20.822 Contact with and (suspected) exposure to COVID-19
CPT/HCPCS: 87635; 99285

== ENCOUNTER 2022-07-13 15:10 | Outpatient (REF) | payer BC, SELFPAY ==
[2022-07-13 16:09] LABS: HCT 44.3 % (40.0-50.0); HGB 14.6 g/dL (13.5-17.5); MCH 31.2 pg (27.0-33.0); MCV 95 fL (80-95); MPV 10.3 fL (8.0-11.0); Platelet Count 283 10^3/uL (130-400); RBC 4.68 10^6/uL (4.36-5.78); RDW 12.5 % (11.8-14.1); RDW-SD 42.9 fL; WBC 6.65 10^3/uL (4.4-10.8)
[2022-07-13 16:26] LABS: Iron 119 ug/dL (65-175); Total Iron Binding Capacity 388 ug/dL (250-450); Transferrin Sat 31 % (20-55)
[2022-07-13 16:56] LABS: ALT 66 U/L (16-63); AST 42 U/L (15-37); Albumin 4.1 g/dL (3.4-5.0); Alkaline Phosphatase 80 U/L (46-116); Anion Gap 7.6 mmol/L (3-11); BUN 10 mg/dL (7-18); Bilirubin, Total 0.4 mg/dL (0.2-1.0); CO2 28.4 mmol/L (21.0-32.0); CREATININE 1.1 mg/dL (0.70-1.30); Calcium 9.2 mg/dL (8.5-10.1); Calculated LDL 127 mg/dL (<100); Chloride 103 mmol/L (98-107); Cholesterol 194 mg/dL (<200); Estimated GFR 87.03 (mL/min/1.73m2); Folate 18.9 ng/mL (8.6-20.0); Glucose 80 mg/dL (74-106); HDL Cholesterol 44 mg/dL (40-60); Sodium 139 mmol/L (136-145); Total Protein 7.8 g/dL (6.4-8.2); Triglyceride 117 mg/dL (<150); Vitamin B12 844 pg/mL (193-986)
== END 2022-07-13 15:11 | disposition home or self-care (01) ==
LOC: NCHCN 15:10
PROVIDERS: PCP Nurse Practitioner Family; Visit Provider Nurse Practitioner Family
DX: D50.9 Iron deficiency anemia, unspecified (principal); Z98.84 Bariatric surgery status; F41.8 Other specified anxiety disorders; Z13.220 Encounter for screening for lipoid disorders
CPT/HCPCS: 80053; 80061; 85027; 82607; 82746; 83540; 83550

== ENCOUNTER 2023-04-16 16:34 | Outpatient (REF) | payer BC, SELFPAY ==
--- OUTSIDE RECORDS SUMMARY | 2023-04-16 16:38 | XMS_ITS | Continuity of Care Document ---
Author Name Unknown Organization [facility] Address [address] [place] [address] Encounter [facility] NBR [id number] Date(s): 08/03/22 - 08/03/[address] [address]- Discharge Disposition: Home or Self Care Attending Physician: Ramiro Earl. PA Allergies, Adverse Reactions, Alerts No Known Medication Allergies Medications Abilify 10 mg oral tablet 10 mg = 1 tab, Oral, Daily, # 30 tab, 0 Refill(s) Start Date: 08/01/22 Status: Ordered Lexapro 20 mg oral tablet 20 mg = 1 tab, Oral, Daily, # 30 tab, 0 Refill(s) Start Date: 08/01/22 Status: Ordered multivitamin adult, oral tablet 1 tab, Oral, Daily, # 30 tab, 0 Refill(s) Start Date: 08/01/22 Status: Ordered Problem List No Known Problems Procedures Procedure Date Related Diagnosis Body Site Status Gallbladder excision 2018 Comp leted Gastric bypass 2016 Completed Social History Social History Type Response Tobacco Current everyday tob acco user Tobacco Use:. Sex
[2023-04-16 19:51] LABS: HCT 44.8 % (40.0-50.0); HGB 14.6 g/dL (13.5-17.5); MCH 30.5 pg (27.0-33.0); MCHC 32.6 % (32.0-36.0); MCV 94 fL (80-95); MPV 10.5 fL (8.0-11.0); Platelet Count 246 10^3/uL (130-400); RBC 4.78 10^6/uL (4.36-5.78); RDW 12.4 % (11.8-14.1); RDW-SD 42.9 fL; WBC 6.45 10^3/uL (4.4-10.8)
[2023-04-16 20:16] LABS: Iron 97 ug/dL (65-175); Total Iron Binding Capacity 349 ug/dL (250-450); Transferrin Sat 28 % (20-55)
[2023-04-16 20:27] LABS: ALT 37 U/L (16-63); AST 31 U/L (15-37); Albumin 3.9 g/dL (3.4-5.0); Alkaline Phosphatase 85 U/L (46-116); Anion Gap 4.8 mmol/L (3-11); BUN 14 mg/dL (7-18); Bilirubin, Total 0.3 mg/dL (0.2-1.0); CO2 30.2 mmol/L (21.0-32.0); Calcium 8.9 mg/dL (8.5-10.1); Chloride 103 mmol/L (98-107); Estimated GFR 97.58 (mL/min/1.73m2); Folate 13.3 ng/mL (8.6-20.0); Glucose 83 mg/dL (74-106); Potassium 4.3 mmol/L (3.5-5.1); Sodium 138 mmol/L (136-145); Total Protein 7.3 g/dL (6.4-8.2); Vitamin B12 733 pg/mL (193-986)
== END 2023-04-16 16:35 | disposition home or self-care (01) ==
LOC: NCHCN 16:34
PROVIDERS: PCP Nurse Practitioner Family; Visit Provider Nurse Practitioner Family
DX: Z98.84 Bariatric surgery status (principal); D50.9 Iron deficiency anemia, unspecified; F32.89 Other specified depressive episodes
CPT/HCPCS: 80053; 85027; 82607; 82746; 83540; 83550

== ENCOUNTER 2023-07-22 12:58 | Outpatient (REF) | payer BC, SELFPAY ==
[2023-07-22 19:36] LABS: Hemoglobin A1C 5.7 % (<5.7)
[2023-07-22 19:42] LABS: ALT 37 U/L (16-63); AST 26 U/L (15-37); Anion Gap 7.5 mmol/L (3-11); BUN 22 mg/dL (7-18); CO2 29.5 mmol/L (21.0-32.0); CREATININE 1.1 mg/dL (0.70-1.30); Calcium 9.4 mg/dL (8.5-10.1); Calculated LDL 114 mg/dL (<100); Chloride 103 mmol/L (98-107); Cholesterol 172 mg/dL (<200); Estimated GFR 86.49 (mL/min/1.73m2); Glucose 103 mg/dL (74-106); HDL Cholesterol 49 mg/dL (40-60); Potassium 4.1 mmol/L (3.5-5.1); Sodium 140 mmol/L (136-145); TSH 3.48 uIU/mL (0.36-3.74); Triglyceride 45 mg/dL (<150)
[2023-07-22 19:59] LABS: PHOSPHORUS 4.7 mg/dL (2.6-4.7)
== END 2023-07-22 12:59 | disposition home or self-care (01) ==
LOC: NCHCN 12:58
PROVIDERS: PCP Nurse Practitioner Family; Visit Provider Nurse Practitioner Psychiatric/Mental Health
DX: F32.9 Major depressive disorder, single episode, unspecified (principal); Z51.81 Encounter for therapeutic drug level monitoring
CPT/HCPCS: 80048; 80061; 80069; 83036; 84443; 84450; 84460

== ENCOUNTER 2023-11-25 09:32 | Outpatient (REF) | payer BC, SELFPAY ==
[2023-11-25 17:30] LABS: Vitamin D 25 Total 28.3 ng/mL (30-100)
[2023-11-25 18:04] LABS: ALT 56 U/L (16-63); AST 34 U/L (15-37); Albumin 3.9 g/dL (3.4-5.0); Alkaline Phosphatase 95 U/L (46-116); Anion Gap 8.3 mmol/L (3-11); BUN 20 mg/dL (7-18); Bilirubin, Total 0.2 mg/dL (0.2-1.0); CO2 31.7 mmol/L (21.0-32.0); CREATININE 1.1 mg/dL (0.70-1.30); Calcium 9.5 mg/dL (8.5-10.1); Chloride 105 mmol/L (98-107); Estimated GFR 86.49 (mL/min/1.73m2); Glucose 73 mg/dL (74-106); Potassium 4.2 mmol/L (3.5-5.1); Sodium 145 mmol/L (136-145); TSH (W/Ref FT4) 2.29 uIU/mL (0.36-3.74); Total Protein 6.8 g/dL (6.4-8.2)
== END 2023-11-25 09:33 | disposition home or self-care (01) ==
LOC: NCHCN 09:32
PROVIDERS: PCP Nurse Practitioner Family; Visit Provider Nurse Practitioner Psychiatric/Mental Health
DX: F33.41 Major depressive disorder, recurrent, in partial remission (principal); E55.9 Vitamin D deficiency, unspecified; Z79.899 Other long term (current) drug therapy
CPT/HCPCS: 80053; 82306; 84443

== ENCOUNTER 2024-05-25 13:02 | Outpatient (REF) | payer BC, SELFPAY ==
--- OUTSIDE RECORDS SUMMARY | 2024-05-25 13:06 | XMS_ITS | Encounter Summary ---
[place] [address] Care Team Providers Care Polysomnography Technician Name Role Phone Radhika Xiao APRN Primary Care Provider Reason for Visit * Reason Onset Date Comments Medication Refill 10/21/2020 Encounter Details Date Type Department Care Team (Late st Contact Info) Description 10/21/2020 Refill [place] [address] Lizet Price APRN [facility] [place] [address] Gastroesophageal reflux disease, esophagitis presence not specified Social History Tobacco Use Types Packs/Day Years Used Date Smoking Tobacco: Former Cigarettes 0.3 2 0 04/10/2016 - 04/10/2018 Smokeless Tobacco: Never Alcohol Use Standard Drinks/Week Comments Yes 0 (1 standard drink = 0.6 oz pur e alcohol) special occasions Sex and Gender Information Value Date Recorded Sex Assigned at Not on file Gender Identity Male 07/07/2018 3:10 PM EDT Sexual Orientation Not on file documented as of this encounter Plan of Treatment Not on file documented as of this encounter Visit Diagnoses Diagnosis Gastroesophageal reflux disease, esophagitis presence not specified documented in this encounter Care Teams Polysomnography Technician Relationship Specialty Start Date End Date Radhika Xiao APRN [facility] [place] [address] PCP - General Family Medicine 03/28/16 documented as of this encounter
--- OUTSIDE RECORDS SUMMARY | 2024-05-25 13:06 | XMS_ITS | Clinical Summary ---
Author Organization [facility] Address [facility] [place] [address] Care Team Providers Care Power House Engineer Name Role Phone Radhika Xiao APRN Primary Care Provider Allergies Active Allergy Reactions Criticality Noted Date Comments Unclassified Drug Itching Medium 01/09/2018 Erythromycin opthalmic drops Medications Medication Sig Dispensed Refills Start Date End Date Status MULTIVIT &MINERALS/FERROUS FUM (MULTI VITAMIN ORAL) Take 2 tablets by mouth daily. Active ferrous sulfate 325 mg (65 mg iron) Tablet Take 325 mg by mouth daily (with breakfast). In conjunction with Vitamin C 500 mg qd. Active ascorbic acid, vitamin C, (VITAMIN C) 500 mg Tablet Take 500 mg by mouth daily. Active cyclobenzaprine (FLEXERIL) 10 mg Tablet Take 10 mg by mouth 3 times daily as needed for Muscle spasms. Active cholecalciferol, Vitamin D3, (CHOLECALCIFEROL, VITAMIN D3,) 2,000 unit Capsule Take 2,000 Units by mouth daily. Active sertraline HCl (SERTRALINE ORAL) Take 200 mg by mouth daily. Active cyanocobalamin, Vitamin B-12, (Vitamin B-12) 1,000 mcg Tablet Take 1,000 mcg by mouth daily. Active pantoprazole EC (Protonix) 40 mg Tablet, Delayed Release (E.C.)Indications:G astroesophageal reflux disease, esophagitis presence not specified Take 1 tablet by mouth daily. 90 tablet 04/25/2020 Active Active Problems Problem Noted Date Diagnosed Date Health care maintenance 11/20/2017 Impaired fasting glucose 11/20/2017 Disorder of iron metabolism 11/20/2017 Status post bariatric surgery 11/20/2017 GAYLE (iron deficiency anemia) 03/28/2016 Depression 02/21/2016 Daytime somnolence 02/21/2016 Gastroesophageal reflux 02/21/2016 Allergic rhinitis 02/21/2016 Low back pain 02/21/2016 HLD (hyperlipidemia) 02/20/2016 S/P gastric bypass 05/16/[address] Thomas for h/o class IV obesity 11/08/2015 Acrochordon 12/22/2013 Resolved Problems Problem Noted Date Diagnosed Date Resolved Date Obesity 05/16/2016 06/05/2016 Prediabetes 03/28/2016 11/20/2017 Overview (03/28/2016): --03/28/2016: HbA1C 5.7 Nicotine dependence 02/21/2016 07/13/20 18 Pain in right shoulder 02/21/201602/05 Plantar fasciitis of right foot 02/21/2016 11/20/2017 AUSTIN (obstructive sleep apnea) 02/20/2016 02/05/2019 Overview (03/27/2016): A. PSG 03/29/15 at wt 386#, BMI: 53.86: AHI: 6.5/hr; RDI: 13.3/hr; REM related AHI: 9.3/hr; REM related RDI: 18.7/hr; Sa02 kelsey: 85% on RA 919 consecutive minutes were spent on oxygen saturation < 88%); arousal index: 8/hr; PLM index: 17/hr; PLM arousal index: 0.5/hr. B. Compliance Summary 02/05/16-03/05/16: 29/30 days; % days w/device usage 96.7%; average usage 5 hrs 34 mins; %>4 hrs 93.3%; < 4 hrs 6.7% Social History Tobacco Use Types Packs/Day Years Used Date Smoking Tobacco: Former Cigarettes 0.3 2 0 04/10/2016 - 04/10/2018 Smokeless Tobacco: Never Tobacco Cessation:Ready to Q uit: Yes; Counseling Given: Yes Alcohol Use Standard Drinks/Week Comments Yes 0 (1 standard drink = 0.6 oz pur e alcohol) special occasions Sex and Gender Information Value Date Recorded Sex Assigned at Not on file Gender Identity Male 07/07/2018 3:10 PM EDT Sexual Orientation Not on file Last Filed Vital Signs Vital Sign Reading Time Taken Comments Blood Pressure 116/65 11/30/2019 1:22 PM EDT Pulse 72 11/30/2019 1:22 PM EDT Temperature 36.6 ??C (97.9 ??F) 11/30/2019 1:22 PM ED T Respiratory Rate 16 11/30/2019 1:22 PM EDT Oxygen Saturation 100% 11/30/2019 1:22 PM EDT Inhaled Oxygen Concentration - - Weight 138.5 kg (305 lb 6.4 oz) 11/30/2019 1:22 PM EDT Height 180.3 cm (5' 10.98) 11/30/2019 1:22 PM E DT Body Mass Index 42.61 11/30/2019 1:22 PM EDT Plan of Treatment Health Maintenance Due Date Last Done Comments HIV screen 2000 Hepatitis C Screening 2000 Hepatitis B vaccine (0-59 yr s) (1) 2001 Tdap adult 2001 Tetanus vaccine 2001 Pre-DM monitoring (HgbA1C or FBG) 2022 11/30/2019, 11/30/2019, 02/05/2019, Additional history exists Covid-19 Vaccine ( - 2022-2 4 season) 2024 Influenza (Flu) vaccine (1 o f 1 - Influenza standard series) 05/17/2024 Lipid Screening 11/29/2024 11/30/2019, 11/20/2017 Procedures Procedure Name Priority Date/Time Associated Diagnosis Comments LIPID PANEL (REFLEX DIRECT LDL) Routine 11/30/2019 3:06 PM EDT Post-resection malabsorption Status post bariatric surgery HC HEMOGLOBIN A1C Routine 11/30/2019 3:0 6 PM EDT History of prediabetes History of hyperlipidemia Post-resection malabsorption Status post bariatric surgery from Last 3 Months or Most Recently Relevant to Health Maintenance Results * Hemoglobin A1c (11/30/2019 3:06 PM EDT) Hemoglobin A1c 5.4 4.3 - 5.6 % [facility] Comment: Reference Range: 4.3 - 5.6% 5.7 - 6.4% - Increased Risk of Developing Diabetes Mellitus >= 6.5% - Consistent with diagnosis of Diabetes Mellitus In the absence of hyperglycemia (i.e. plasma glucose > 200 mg/dL) or classic symptoms of hyperglycemia a repeat measurement of HbA1c should be performed on a separate sample to confirm the diagnosis. Diagnosis and Classification of Diabetes Mellitus, Diabetes Care 2013; 36: Suppl. 1, S67-74 Estimated Average Glucose 109 mg/dL [facility] Comment: eAG equivalents for HbA1c percentages: HbA1c(%) ?eAG(mg/dL) 6.0 ?126 6.5 ?140 7.0 ?154 7.5 ?169 8.0 ?183 8.5 ?197 9.0 ?212 9.5 ?226 10.0 ? 240 Limitations: The eAG calculation has not been validated on women, individuals below 18 years old and above 70 years old, and individuals with hemoglobinopathies. Additional resources are available on the ADA website. Jonn PONCE, Yessica J, Sara R, et al. ??Translating the A1C assay into estimated average glucose values. ??Diabetes Care 2008:31(8):5616-4834. Blood specimen (specimen) 11/30/2019 3:06 PM EDT 11/30/2019 3:19 PM EDT Narrative Resulting Agency Comment Spec In Lab Dorys Rivers HOCKEY PLAYER CHEMISTRY ORDERAB LES [facility] [place] [address] * Lipid Panel (Reflex Direct LDL) (11/30/2019 3:06 PM EDT) Cholesterol, Total 172 mg/dL [facility] Comment: Lower Risk: <200 mg/dL Average Risk: 200-239 mg/dL Higher Risk: >le=715 mg/dL Triglyceride 108 mg/dL [facility] Comment: Average Risk/Lower Risk: <150 mg/dL Borderline High Risk: 150-199 mg/dL High Risk: 200-499 mg/dL Very High Risk: >dh=034 mg/dL HDL Cholesterol 45 mg/dL [facility] Comment: Males: ?? Higher Risk: <40 mg/dL Females: ?? HIgher Risk: <50 mg/dL LDL Cholesterol 105 mg/dL [facility] Comment: Lowest Risk: <100 mg/dL Lower Risk: 100-129 mg/dL Borderline High Risk: 130-159 mg/dL High Risk: 160-189 mg/dL Very High Risk: >da=262 mg/dL Cholesterol/HDL Ratio 3.8 ratio [facility] Lipid Interpretation See Note [facility] Comment: Lipid management should be guided by a patient? s ASCVD risk, goals and preferences. ACC/AHA Guidelines recommend high intensity statin if clinical ASCVD or LDL greater than or equal to 190 mg/dL. [email or web address]/WSA-FZW-[email or web address] Adults aged 40-75 with LDL 70-189 mg/dL should have their 10 year ASCVD risk estimated with the ACC/AHA ASCVD risk auto body repair estimator http://tools.acc.org/NQHCJ-Pznc-Indtqynrq/ Statin should be discussed if risk greater than or equal to 7.5% in non-diabetics. With diabetes, moderate intensity statin is recommended if risk less than 7.5%, high intensity if risk greater than or equal to 7.5%. Annual lipid monitoring on statins is not necessary. Evaluate secondary causes of Triglycerides greater than 500 mg/dL or LDL greater than 190 mg/dL: See table 6 of ACC/AHA Guideline. Lifestyle modification is a critical component of ASCVD risk reduction. Blood specimen (specimen) 11/30/2019 3:06 PM EDT 11/30/2019 3:19 PM EDT Narrative Resulting Agency Comment Spec In Lab Dorys Rivers HOCKEY PLAYER CHEMISTRY ORDERAB LES [facility] [place] [address] from Last 3 Months or Most Recently Relevant to Health Maintenance Advance Directives * Full Code (Latest Code Status on File) Date Activated Date Inactivated Comments 05/16/2016 7:24 AM 05/17/2016 4:08 PM Question Answer Comments Does patient have capacity to make decision: Yes Care Teams Power House Engineer Relationship Specialty Start Date End Date Radhika Xiao APRN [address] [place], [place] [id number] PCP - General Family Medicine 03/28/16
--- OUTSIDE RECORDS SUMMARY | 2024-05-25 13:06 | XMS_ITS | Encounter Summary ---
[facility] [place] [id number] Care Team Providers Care Radio Despatcher Name Role Phone Radhika Xiao APRN Primary Care Provider Encounter Details Date Type Department Care Team (Late st Contact Info) Description 11/30/2019 Notes Only [place] [phone] [facility] [place] [phone] Social History Tobacco Use Types Packs/Day Years [...] on file documented as of this encounter Progress Notes * Cinthya Donaldson RD - 11/30/2019 9:58 AM EDT Bariatric Surgery Program Nutrition Follow-up Note 11/30/2019 Provider: Cinthya Donaldson MS, RD, LD Reason for encounter: Konstantin Hickey is a 39 y.o. male who is seen today for a follow-up visit. 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 ?? Weight History: Date Weight (lbs) HT BMI Comments ?? 405# ? Highest Weight 07/08/15 392.8# ? Initial program weight 03/28/16 408# 70.75 57.3 1st pre-op visit 05/16/16 372.1# EWL % ?? Surgery 06/06/16 361.1# 19.1% 50.7 1 month post-op 08/31/16 36.1# 37.6% 44.5 ?? 12/28/16 285# 53% 40.0 8 months post-op 05/22/17 269.5# 60% 37.8 1 year post-op 11/20/17 284# 54% 39.9 18 months post-op 07/11/18 289.1# 52% 40.3 2 years post-op 02/05/19 304# 45% 42 2.75 years post-op 11/30/19?? 305#?? 45%?? 42?? 3.75 years post-op?? [place] Body Weight (based on BMI of 25): 174# Excess Weight: 218# 50-70% Excess Weight Loss: 230-285# ? Vitamin/Mineral Supplements??(reported by patient):?? Supplement Type Brand/Form Dosage/Amount Frequency Comments Multivitamin Men's MVM 2 ??daily ?? Calcium ? States he does not need Vitamin??B12 pill 1000 mcg Once daily ?? Iron ?? 325 mg ??daily Chooses to take feels better?? Vitamin C chewable 500 mg Daily w/iron pill ? Vitamin D 2 pills ??unsure of dose daily ? Past Medical History: Diagnosis Date ??? HLD (hyperlipidemia) ??? Morbid obesity ??? [place] (obstructive sleep apnea) ??? 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 Provided support/encouragement and reinforced importance of meeting nutritional goals. Advised to prioritize vegetables and skip the starch at meals ?? Limit alcohol in the summer ?? Reviewed vitamin and mineral supplement recommendations. Add 500 mg calcium citrate twice daily? ?? Written recommendations provided on the AVS ?? Evaluation by nurse practitioner today. ?? Has the [employer] Booklet for reference ?? Follow-up in 6 months (prefers twice yearly follow-up to stay accountable) documented in this encounter Plan of Treatment Not on file documented as of this encounter Visit Diagnoses Not on filedocumented in this encounter Care Teams Radio Despatcher Relationship Specialty Start Date End Date Radhika Xiao APRN [address] [facility] [place] [address] PCP - General Family Medicine 03/28/16 documented as of this encounter
--- OUTSIDE RECORDS SUMMARY | 2024-05-25 13:06 | XMS_ITS | Encounter Summary ---
Author Organization [facility] Address [facility] [place] [address] Care Team Providers Care Milk Powder Grinder Name Role Phone Radhika Xiao APRN Primary Care Provider [phone] Reason for Visit * Reason Comments Follow-up Encounter Details Date Type Department Care Team (Late st Contact Info) Description 04/14/2019 4:40 PM EDT Office [place] [phone] Juan Thomas MD [facility] [place] [address] S/P gastric bypass 05/16/[address] Thomas for h/o class IV obesity Social History Tobacco Use Types Packs/Day Years [...] on file documented as of this encounter Last Filed Vital Signs Vital Sign Reading Time Taken Comments Blood Pressure - - Pulse - - Temperature - - Respiratory Rate - - Oxygen Saturation - - Inhaled Oxygen Concentration - - Weight 138.3 kg (305 lb) 04/14/2019 3:59 PM EDT Height - - Body Mass Index 42.54 01/09/2018 9:48 AM EDT documented in this encounter Progress Notes * Ira Talamantes - 04/14/2019 4:40 PM EDT Mr. Hickey returns to clinic today in follow up for ongoing, intermittent abdominal pain. He is s/plap RYGB on 05/16/16. His pre-op weight was 408 lbs; currently 305lbs (lowest weight post-op 269lbs on 05/22/17). He was seen for similar complaints in December 2017, at which time he underwent EGD with findings notable for inflammation, but biopsies were negative for Valentine's. He also had an abdominal ultrasound which was normal. He most recently underwent CT A/P in February of this year, which was also normal without evidence of internal hernia or other abnormality. In the office today he describes periumbilical pain more than epigastric pain. Given his persistent symptoms for over a year, however, Dr. Thomas offered Mr. Hickey the option of a diagnostic laparoscopy as the only definitive means of ruling out an internal hernia or other intra-abdominal pathology as a source for his pain, including adhesive disease. Diagnostic laparoscopy was discussed with possible cholecystectomy and intra-operative EGD pending intra-operative findings. Risks, benefits, and alternatives were discussed and Mr. Hickey expressed interest in proceeding with this approach. Informed consent was obtained and he will arrange for surgery in the near future. * Juan Thomas MD - 04/14/2019 4:40 PM EDT I have seen the patient and reviewed Dr. Talamantes's history and I agree with the details as written. The assessment and plan were formulated in discussion with me and I agree with them as documented. documented in this encounter Plan of Treatment Not on file documented as of this encounter Visit Diagnoses Diagnosis S/P gastric bypass 05/16/[address] Thomas for h/o class IV obesity Bariatric surgery status documented in this encounter Care Teams Milk Powder Grinder Relationship Specialty Start Date End Date Radhika Xiao, BRUSHING MACHINE OPERATOR [address] [place] [address] PCP - General Family Medicine 03/28/16 documented as of this encounter
--- OUTSIDE RECORDS SUMMARY | 2024-05-25 13:06 | XMS_ITS | Encounter Summary ---
[place] [address] Care Team Providers Care Chucking And Sawing Machine Operator Name Role Phone Radhika Xiao APRN Primary Care Provider Reason for Visit * Reason Onset Date Comments Prior Authorization 04/16/[address] tablets Encounter Details Date Type Department Care Team (Late st Contact Info) Description 04/16/2023 [place] [phone] Anushka Dillon CMA Prior Authorization (Pantoprazole Sodium 40MG dr tablets) Social History Tobacco Use Types Packs/Day Years [...] on file documented as of this encounter Miscellaneous Notes * Telephone Encounter - Anushka Dillon CMA - 04/16/2023 12:46 PM EDT Accessed patient record due to the following: [] Received an approval letter via fax windows server administrator- duplicate request, not our department, we didn't submit the PA. [] Received a denial letter via fax windows server administrator- duplicate request, not our department, we didn't submitthe PA. [] Received immunizations from an outside facility- immunizations entered in the chart, and the immunization report will be indexed in chart. [] Received labs from an outside facility- labs entered into the chart, and the lab report will be indexed in the chart. [] Went through our STPs in CMM to see if approval or denial was documented, or needs to be documented. [] Helping teammate with PA request- finding correct information in order to submit PA [] Received PA request-its a duplicate request, not a department we service [] Received additional information on a PA request-its a duplicate [x] Received a PA request that our department does not handle [] Indexing medical records into the chart [] Received labs-duplicate [] Received prior authorization/approval/denial in onbase for patient with similar name and [] Received appeal decision, our department did not send appeal to the insurance, sent appeal letter to the correct department that handled the request, or additional information to an appeal that wedidn't submit. [] Duplicate appeal request/decision [] Received a refill request- our department doesn't handle these- sent to correct department. [] Received medical records, Patient not scheduled in a department we currently service, records have been indexed to the chart, or records have been transferred to the correct department que in fax windows server administrator [] Received medical records for a patient that is not a patient [] verified information received on document in external fax windows server administrator [] Non-DH documents [] inbasket message /waiting to hear back from the provider/provider pool documented in this encounter Plan of Treatment Not on file documented as of this encounter Visit Diagnoses Not on filedocumented in this encounter Care Teams Chucking And Sawing Machine Operator Relationship Specialty Start Date End Date Radhika Xiao APRN [address] [place] [address] PCP - General Family Medicine 03/28/16 documented as of this encounter
--- OUTSIDE RECORDS SUMMARY | 2024-05-25 13:06 | XMS_ITS | Encounter Summary ---
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 Name Role Phone Radhika Xiao APRN Primary Care Provider Reason for Visit * Auth/Cert Specialty Diagnoses / Procedures Referred By Contac t Referred To Contact Diagnoses ABDOMINAL PAIN Procedures PRO LAP, DX SURGICAL ABD W/BIOPSY PRO UPPER GI ENDOSCOPY, DIAGNOSTIC PRO LAP, CHOLECYSTECTOMY/GRAPH LAPAROSCOPY,SURGICAL,WITH BIOPSY, SINGLE OR MULTIPLE (WRVU 5.44) EGD, UPPER GI ENDOSCOPY LAPAROSCOPIC CHOLECYSTECTOMY WITH CHOLANGIOGRAM (WRVU 11.47) Referral ID Status Reason Start Date Expiration Date Visits Re quested Visits Authorized [id number] 1 1 Encounter Details Date Type Department Care Team (Late st Contact Info) Description 05/14/2019 11:26 AM EDT - 05/14/2019 12:54 PM EDT Surgery [place] [id number] Juan Monge MD [facility] [place] [address] EGD, UPPER GI ENDOSCOPY (WRVU 2.09) Social History Tobacco Use Types Packs/Day Years [...] Sign Reading Time Taken Comments Blood Pressure 131/62 05/14/2019 10:32 AM EDT Pulse 52 05/14/2019 10:32 AM EDT Temperature 36.2 ??C (97.2 ??F) 05/14/2019 10:32 AM E DT Respiratory Rate 16 05/14/2019 10:32 AM EDT Oxygen Saturation 99% 05/14/2019 10:32 AM EDT Inhaled Oxygen Concentration - - Weight 138.3 kg (305 lb) 05/14/2019 10:32 AM EDT Height 180.3 cm (5' 11) 05/14/2019 10:32 AM EDT Body Mass Index 42.54 05/14/2019 10:32 AM EDT documented in this encounter Discharge Instructions * Discharge Instructions* Guerline Monson RN - 05/14/2019 3:42 PM EDT POST ANESTHESIA INSTRUCTIONS Go home, rest, use caution on stairs. Change positions slowly. Do not smoke if you are alone. Diet light to regular as tolerated today. If nausea occurs start with clear liquids and progress slowly. No driving, operating machinery, alcoholic beverages and no important decisions for 24 hours. Monitor IV site for signs and symptoms of infection: increasing redness, swelling, foul drainage, if occurs contact M.D. Patients who have had endotrachial tubes (this tube, used by anesthesia department, is passed down your throat after you are asleep, to ensure safe air passage during your operation). A sore throat is normal due to the tube. Cold liquids or soothing lozenges will help ease the discomfort. The generalized muscle aches are due to the medication given to you just before the tube is inserted. As the medication wears off, you may develop muscle soreness, which usually goes away in 12-24 hours. * Patient Instructions* Paulino Feliciano MD - 05/14/2019 3:02 PM EDT Instructions following Laparoscopic Cholecystectomy Wound Care: Keep dressings/Band-Aids on incisions for the next 2 days. Do not get dressings wet. Ifthey become wet or soaked with drainage you may change them with fresh ones as needed. If there arepieces of tape directly on the incision (steri-strips or butterflys), please leave them on until they fall off on their own. You may trim them back as they begin to peel up. After 2 days you may remove dressing/Band-Aids and leave open to air. You may now shower and get incisions wet. Pat dry immediately following. Do not scrub them vigorously for the next 2-3 weeks. Do not soak incision(s) under water for the next 2 weeks (i.e. soaking in bath or swimming) as this maypromote a wound infection. Your stitches will dissolve and do not need to be removed. Activity: No heavy lifting more than 10-15 pounds for the next 2 weeks, then you may gradually liftheavier objects as tolerated by discomfort. Otherwise activity as tolerated by your comfort level. Driving: Do not drive while taking narcotic pain medications. If you are no longer taking pain medication, it should safe to drive when it no longer hurts getting in and out of the vehicle, and when you can quickly move your leg from the gas to the brake pedal without it causing pain. Call Doctor for: Please call if you notice worsening redness or drainage from incision(s) lasting longer than 5 days after your surgery, any foul-smelling drainage from the incision, pain not controlled by pain medications, persistent nausea or vomiting, or for any fevers greater than 101.3 F. The number for questions is [phone] before 5 PM weekdays and [phone] after 5 PM and weekends. Pain Medication: -Take the medication exactly as it is prescribed and make sure to read all instructions that come with the medication. -Over the next couple of days you should be requiring less of this medication to control you pain, so that eventually you will not need any at all. You do not have to take all of the medication that was prescribed, you may have some left over. -Use ibuprofen (motrin, advil) and/or tylenol prior to using this medication. If your pain is stillnot controlled, you may then use this medication. -Taking more than the prescribed amount of medication or using with alcohol or other drugs can cause you to stop breathing resulting in coma, brain damage or . -Opioids can slow reaction time, cause drowsiness or cloud judgement. No driving for 8 hours after any dose of opioid pain medication if one was prescribed for you. -Using this drug may cause addiction. While addiction is more common in people with a personal or family history of addiction, it can occur in anyone. -Opioids are at risk of being diverted by anyone with access to your home. Opioids should be storedin a safe and secure place, such as a locked cabinet or safe. -Unused opioids should be disposed of appropriately. They may be returned to a take-back location, or mixed with a small amount of water and poured over an undesirable waste such as used coffee grounds or cat litter. -Please note that most pain medications can cause constipation. You may use a stool softener such as Miralax to prevent this. Other Means for Pain Relief: Other than medications. ?? Learn deep breathing exercises or meditation to help you relax ?? Reduce stress ?? Your body produces natural endorphins from exercise which can help reduce pain. Even walking is considered exercise. Talk with your provider/surgical team about what exercises are appropriate for you to perform. ?? You may use a heating pad or apply ice to the painful area unless specifically discouraged by the surgical team. ?? Find ways to distract yourself from the pain. Follow-up: You have a follow-up appointment scheduled to see Dr. Monge at [facility]. You will receive a letter in the mail confirming the appointment date and time. Your follow-up is very important to us. Please call [phone] if you do not hear from us within 7 days of discharge or if you need to change the appointment date/time. documented in this encounter Medications at Time of Discharge Medication Sig Dispensed Refills Start Date End Date sertraline HCl (SERTRALINE ORAL) Take 200 mg by mouth daily. cyclobenzaprine (FLEXERIL) 10 mg Tablet Take 10 mg by mouth 3 times daily as needed for Muscle spasms. cholecalciferol, Vitamin D3, (CHOLECALCIFEROL, VITAMIN D3,) 2,000 unit Capsule Take 2,000 Units by mouth daily. ferrous sulfate 325 mg (65 mg iron) Tablet Take 325 mg by mouth daily (with breakfast). In conjunction with Vitamin C 500 mg qd. ascorbic acid, vitamin C, (VITAMIN C) 500 mg Tablet Take 500 mg by mouth daily. MULTIVIT &MINERALS/FERROUS FUM (MULTI VITAMIN ORAL) Take 2 tablets by mouth daily. oxyCODONE (ROXICODONE) 5 mg Tablet Take 1 tablet by mouth every 6 hours as needed for Pain. 5 tablet 05/14/2019 06/11/2019 pantoprazole (PROTONIX) 40 mg Tablet, Delayed Release (E.C.)Indications:Jaime roesophageal reflux disease, esophagitis presence not specified Take 1 tablet by mouth daily. 90 tablet 3 02/05/2019 04/25/2020 CYANOCOBALAMIN/COBAMAM ISAÍAS (B12 SL) Place under the tongue daily. 11/30/2019 documented as of this encounter Progress Notes * Guerline Monson RN - 05/14/2019 5:13 PM EDT Patient awake and alert, VSS. IV site removed, site benign. My assessment remains unchanged from myprevious assessment. Patient waited to leave until able to urinate, voided large amount well. RN discussed pain management with patient, pain tolerable. Patient received After Visit Summary. The After Visit Summary was reviewed with patient and , verbalizes understanding. All questions answered. Patient has all belongings and supplies needed. Patient encouraged to call with any questions or concerns. Patient escorted out of department via wheelchair with . Patient discharged to home. documented in this encounter H&P Notes * Juan Monge MD - 05/14/2019 12:11 PM EDT Patient Name: Konstantin Hickey Patient Age: 38 y.o. Birthdate: 1980 Admit date: 05/14/2019 Attending Physician: Juan Monge MD Mr. Hickeyis a 38 yo male with intermittent abdominal pain. He is s/p lap RYGB on 05/16/16. His pre-op weight was 408 lbs; currently 305lbs (lowest weight post- op 269lbs on 05/22/17). He was seen for similar complaints in December 2017, at which time he underwent EGD with findings notable for inflammation, but biopsies were negative for Valentine's. He also had an abdominal ultrasound which was normal. He most recently underwent CT A/P in February of this year, which was also normal without evidence of internal hernia or other abnormality. Past Medical History: Diagnosis Date ??? HLD (hyperlipidemia) ??? Morbid obesity ??? AUSTIN (obstructive sleep apnea) ??? Pain in right shoulder 02/21/2016 Past Surgical History: Procedure Laterality Date ??? PRO COLONOSCOPY, DIAGNOSTIC N/A 04/04/2016 COLONOSCOPY, DIAGNOSTIC performed by Julia Ashraf MD at [facility] ENDOSCOPY ??? PRO LAP GASTRIC BYPASS/ANABELLE-EN-Y N/A 05/16/2016 @LAPAROSCOPIC GASTROPLASTY, performed by Juan Monge MD at [facility] MAIN OR ??? PRO UPPER GI ENDOSCOPY, BIOPSY N/A 04/04/2016 UPPER GASTROINTESTINAL ENDOSCOPY,WITH BIOPSY SINGLE OR MULTIPLE performed by Julia Ashraf MD at [facility] ENDOSCOPY ??? PRO UPPER GI ENDOSCOPY, BIOPSY N/A 01/09/2018 EGD WITH BIOPSY (WRVU 2.49) performed by Ramón Minaya MD at [facility] ENDOSCOPY ??? PRO UPPER GI ENDOSCOPY, DIAGNOSTIC N/A 04/04/2016 EGD, UPPER GI ENDOSCOPY performed by Julia Ashraf MD at [facility] ENDOSCOPY ??? PRO UPPER GI ENDOSCOPY, DIAGNOSTIC N/A 05/16/2016 ENDOSCOPY, UPPER GI, DIAGNOSTIC, WITH OR WITHOUT SPECIMENS [facility] No current facility-administered medications on file prior to encounter. Current Outpatient Medications on File Prior to Encounter Medication Sig Dispense Refill ??? sertraline HCl (SERTRALINE ORAL) Take 150 mg by mouth daily. ??? pantoprazole (PROTONIX) 40 mg Tablet, Delayed Release (E.C.) Take 1 tablet by mouth daily. 90 tablet 3 ??? cholecalciferol, Vitamin D3, (CHOLECALCIFEROL, VITAMIN D3,) 2,000 unit Capsule Take 2,000 Unitsby mouth daily. ??? CYANOCOBALAMIN/COBAMAMIDE (B12 SL) Place under the tongue daily. ??? ferrous sulfate 325 mg (65 mg iron) Tablet Take 325 mg by mouth daily (with breakfast). In conjunction with Vitamin C 500 mg qd. ??? ascorbic acid, vitamin C, (VITAMIN C) 500 mg Tablet Take 500 mg by mouth daily. ? ? MULTIVIT &MINERALS/FERROUS FUM (MULTI VITAMIN ORAL) Take by mouth. ??? cyclobenzaprine (FLEXERIL) 10 mg Tablet Take 10 mg by mouth 3 times daily as needed for Muscle spasms. Allergies Allergen Reactions ??? Other [Unclassified Drug] Itching Erythromycin opthalmic drops On examination, he appears well and in no distress. Head and neck exam reveals equal, reactive pupils and a supple neck. His chest is clear bilaterally and his heart sounds are normal with no adventitious sounds or murmurs. His abdomen is soft with no masses or tenderness. Extremity and Neuro examsare grossly normal. documented in this encounter Miscellaneous Notes * Op Note - Juan Monge MD - 05/14/2019 5:15 PM EDT [facility] Operative Note Patient Name: Konstantin Hickey : [id number] MR#: [id number] Case Date: 05/14/2019 Surgeon: Surgeon(s) and Role: * Juan Monge MD - Primary * Paulino Feliciano MD - Resident Preoperative diagnosis: ABDOMINAL PAIN Postoperative diagnosis: ABDOMINAL PAIN Procedure(s) (LRB): EGD, UPPER GI ENDOSCOPY (N/A) LAPAROSCOPIC CHOLECYSTECTOMY (WRVU 10.47) (N/A) LAPAROSCOPIC INTERNAL HERNIA REPAIR (WRVU *) (N/A) LAPAROSCOPY, DIAGNOSTIC, ABDOMEN (WRVU 5.14) (N/A) Anesthesia: General Estimated Blood Loss: * No values recorded between 05/14/2019 1:23 PM and 05/14/2019 2:53 PM * Specimens removed during surgery: Order Name Source Comment Collection Info Order Time SPECIMEN TO PATHOLOGY Abdominal pain Gallbladder and contents excision No 05/14/2019 2:34 PM Time specimen removed from patient: 2:33 PM Number of tissue samples (in container) 1 Biospecimen to store? No Drains: * No LDAs found * Surgical Closure: Primary Closure - skin incision is completely closed without any wires, angeltia, drains or other devices Disposition: awakened from anesthesia, extubated and taken to the recovery room in a stable condition, having suffered no apparent untoward event. Condition: doing well without problems (Please see the Surgical Encounter Summary for any Implant and Specimen details pertinent to this patient.) Konstantin Hickey is a 38-year-old gentleman who is status post Anabelle-en-Y gastric bypass. He has had recurrent episodes of epigastric and upper abdominal pain and is taken to the operating room to ruleout internal hernia, marginal ulceration and also the question of whether he has some cholecystitis. Under general anesthesia and endotracheal intubation the patient was prepped and draped in the supine position. IV antibiotics were infused preop and a team timeout was performed. The abdomen was entered using a 5 mm Optiview trocar with a 0 degree telescope and a previous port site just to the left of the midline. After entering the abdominal cavity insufflating with CO2 to a pressure of 15 mmHg, inspection with a 0 degree telescope revealed no trocar injury. We then switched to a 45 degree telescope and patient was placed into reverse Trendelenburg. 2 lateral 5 mm ports were placed on the right side one in the the upper quadrant and one just across the midline from the camera port. First i nspection was of the Anabelle limb and this was followed down to the jejunostomy and run all the way down to the terminal ileum. There was no defect present at Almeida space that had any bowel within itbut a small defect was closed with a 2 oh Surgilon suture. Inspection of the jejunojejunostomy sitealso revealed his previous closure had broken down but no herniation was present. This was closed with a running 2 oh Surgilon suture. Endoscopy revealed no marginal ulceration. Inspection of the gallbladder revealed moderate to dense adhesions particularly to the infundibulumwith an enlarged gallbladder. We then used a additional 5 mm port in the far lateral right side andthis was used to place traction on the fundus of the gallbladder in the cephalad direction. Sharp and blunt dissection was used to skeletonize the infundibulum and eventually achieve a critical view of safety opening the triangle of Callow to expose the artery and cystic duct. The cystic duct appeared extremely tiny and we were unable to pass the cholangiogram catheter through this so it was not performed. The cystic artery and cystic duct were doubly clipped and divided. Cautery was used to free the gallbladder off the liver bed. Adequate hemostasis was assured with cautery. A small Endo Catch was then placed through an upsized camera port to a 12 mm port in the gallbladder removed. Reinspection of the abdominal cavity revealed excellent hemostasis and no other abnormalities. All ports were then removed under direct vision and skin sites were all closed with running subcuticular 4-0 Monocryl suture followed by Steri-Strips and Band-Aids. Patient returned to the recovery room in stable condition, sponge and instrument counts were correct. Attestation: Case Date: 05/14/2019 I was present and I participated during the entire procedure (does not need to include opening and closing). JUAN MONGE MD 05/15/2019 * Brief Op Note - Juan Monge MD - 05/14/2019 2:53 PM EDT Brief Operative Note Patient Name: Konstantin Hickey : [id number] MR#: [id number] Case Date: 05/14/2019 Surgeon: Surgeon(s) and Role: * Juan Monge MD - Primary * Paulino Feliciano MD - Resident Preoperative diagnosis: ABDOMINAL PAIN Postoperative diagnosis: ABDOMINAL PAIN Procedure(s) (LRB): EGD, UPPER GI ENDOSCOPY (N/A) LAPAROSCOPIC CHOLECYSTECTOMY (WRVU 10.47) (N/A) LAPAROSCOPIC INTERNAL HERNIA REPAIR (WRVU *) (N/A) LAPAROSCOPY, DIAGNOSTIC, ABDOMEN (WRVU 5.14) (N/A) Anesthesia: General Findings: INTERNAL HERNIA DEFECT BUT NO HERNIATION, Edematous inflamed gallbladder. No marginal ulcer Complications: Intra-op bradycardia Intake: 900 ml Intraprocedure Crystalloid Total None Transfusion No data found in the last 1 encounters. Output: Estimated Blood Loss: 11 ml Urine Output:: (no urine output recorded) Other Output: (no other output recorded) Drains: none Specimens removed during surgery: Order Name Source Comment Collection Info Order Time SPECIMEN TO PATHOLOGY Abdominal pain Gallbladder and contents excision No 05/14/2019 2:34 PM Time specimen removed from patient: 2:33 PM Number of tissue samples (in container) 1 Biospecimen to store? No Disposition: awakened from anesthesia, extubated and taken to the recovery room in a stable condition, having suffered no apparent untoward event. Condition: doing well without problems Attestation: Case Date: 05/14/2019 I was present and I participated during the entire procedure (does not need to include opening and closing). (Please see the Surgical Encounter Summary for any Implant and Specimen details pertinent to this patient.) documented in this encounter Plan of Treatment Scheduled Orders Name Type Priority Associated Diagnoses Orde r Schedule XR Fluoro No Rad <1Hr - OR Use Imaging Routine Once PRN (for Ra diant use) for 1 Occurrences starting 05/14/2019 until 05/14/2019 documented as of this encounter Procedures Procedure Name Priority Date/Time Associated Diagnosis Comments SURGICAL PATHOLOGY REPORT Routine 05/14/2019 2:34 PM EDT SPECIMEN TO PATHOLOGY Routine 05/14/2019 2:34 PM EDT Lap, Diagnostic Abdomen (87586) Yes 05/14/2019 12:46 PM EDT ABDOMINAL PAIN Unlisted Lap Proc Hrnap Herniorrhaphy Herniotomy (15044) Yes 05/14/2019 12:46 PM EDT ABDOMINAL PAIN Lap, Cholecystectomy (52581) Yes 05/14/2019 12:46 PM EDT ABDOMINAL PAIN Upper GI Endoscopy, Diagnostic ([id number]) Yes 05/14/2019 12:46 PM EDT ABDOMINAL PAIN documented in this encounter Results * Surgical Pathology Report (05/14/2019 2:34 PM EDT) Final Diagnosis [id number] ? Location: [facility]; [facility]; A The signing pathologist has (i) examined the relevant preparation(s) for the specimen(s) and (ii) rendered or confirmed the diagnosis(es). . ?Surgical Pathology DIAGNOSIS Gallbladder and contents: Chronic cholecystitis Electronically signed by: ??Sandhya Frankel MD Verified: ??05/20/2019 ?Pathologist Performed at: ??-[facility] Dept. of Pathology, [place], [place] CLINICAL INFORMATION Specimen Submitted: A - Gallbladder and contents Clinical History and Diagnosis: Abdominal pain SPECIMEN PROCESSING A - Labeled/Fixative: Gallbladder and contents, fresh. Quantity/Size: ??Single, 9.1 x 4.8 x 3.0 cm. Specimen Description: Gallbladder, received Intact. Serosa: [place], glistening, unremarkable Adventitia: Ragged, quite related, pink, without gross lesions Lumen contents: Green, viscous, bile. Gallstones: Absent Mucosa: Brown green, granular Wall: 0.1 -0.3 cm thick. Duct: 0.9 x 0.5 cm, patent. Ink Designation: The hepatic margin is inked black Sections/Processi ng: Access Manager sections in 2 cassettes as follows: ?A1: ??cystic duct margin and lead generation representative mucosa. ?A2: ??Additional mucosa ??rh 05/20/2019 1:45 PM EDT [facility] GALLBLADDER STRUCTURE / Unknown 05/14/2019 2:34 PM EDT 05/14/2019 2:34 PM EDT Juan Monge MD PATHOLOGY/CYTOLOGY [place] Performing Organization Address [facility] Co de Phone Number [facility] [place] [address] * Specimen to Pathology (05/14/2019 2:34 PM EDT) AP Specimen 05/14/2019 2:34 PM EDT 05/14/2019 2:34 PM EDT Narrative [facility] - 05/14/2019 2:34 PM EDT Specimen requisition ordered. ??Separate Pathology report to follow Juan Monge MD PATHOLOGY/CYTOLOGY [place] Performing Organization Address [facility] [place] [address] documented in this encounter Visit Diagnoses Not on filedocumented in this encounter Administered Medications Inactive Administered Medications - up to 3 most recent administrations Medication Order MAR Action Action Date Dose Rate Site acetaminophen (TYLENOL) tablet 1,000 mg 1,000 mg, Oral, ONCE, 1 dose, On Brooke 05/14/19 at 1100, Administer with SIP of H2O only., Day of Surgery (Day of Procedure), Routine Given 05/14/2019 10:41 AM EDT 1,000 mg BUpivacaine (PF) (MARCAINE) 0.25 % (2.5 mg/mL) injection ONCE PRN, Starting on Brooke 05/14/19 at 1323, Until Brooke 05/14/19 at 1919, Intra-Operative (Intra-Procedure), Routine Given 05/14/2019 1:23 PM EDT 15 mLs 19- Surgical Site fentaNYL (PF) 50mcg/mL injection 12.5-25 mcg, Intravenous, EVERY 5 MIN PRN, Starting on Brooke 05/14/19 at 1504, Until Brooke 05/14/19 at 1512, Pain, Give 12.5 mcg every 5 minutes PRN for mild to moderate pain (1-5) Give 25 mcg every 5 minutes PRN for moderate to severe pain (6-10). Hold for respiratory rate less than 10 per minute. Maximum dose 250 mcg over one hour. If ordered with hydromorphone or morphine, give hydromorphone or morphine first and use fentanyl for breakthrough pain., PACU Recovery, Routine Given 05/14/2019 3:10 PM EDT 25 mcg Given 05/14/2019 3:08 PM EDT 25 mcg gabapentin (NEURONTIN) capsule 600 mg 600 mg, Oral, ONCE, 1 dose, On Brooke 05/14/19 at 1100, Administer with SIP of H2O only., Day of Surgery (Day of Procedure), Routine Given 05/14/2019 10:41 AM E DT 600 mg HYDROmorphone (DILAUDID) injection 0.2-0.4 mg 0.2-0.4 mg, Intravenous, EVERY 5 MIN PRN, Starting on Brooke 05/14/19 at 1515, Until Brooke 05/14/19 at 1713, Pain, Give 0.2 mg every 5 minutes PRN for mild to moderate pain (1-5) Give 0.4 mg every 5 minutes PRN for moderate to severe pain (6-10). Hold for respiratory rate less than 10 per minute. Maximum dose 4 mg over one hour. If multiple pain medications are ordered, start with hydromorphone or morphine and use fentanyl for breakthrough pain., PACU Recovery, Routine Given 05/14/2019 3:31 PM EDT 0.4 mg Given 05/14/2019 3:24 PM EDT 0.4 mg Given 05/14/2019 3:19 PM EDT 0.4 mg lactated ringers infusion 1,000 mL, at 100 mL/hr, Intravenous, CONTINUOUS, Starting on Brooke 05/14/19 at 1100, Until Brooke 05/14/19 at 1713, Day of Surgery (Day of Procedure) New Bag 05/14/2019 10:53 AM EDT 1,000 mLs 100 mL/hr oxyCODONE (ROXICODONE) immediate release tablet 5 mg 5 mg, Oral, EVERY 4 HOURS PRN, Starting on Brooke 05/14/19 at 1502, Until Brooke 05/14/19 at 1919, Pain, Routine Given 05/14/2019 3:14 PM EDT 5 mg documented in this encounter Active and Recently Administered Medications Times are shown in EDT. Scheduled Medication Order 05/12/2019 05/13/2019 05/14/2019 acetaminophen (TYLENOL) tablet 1,000 mg (COMPLETED) 1,000 mg, Oral, ONCE, 1 dose, On Brooke 05/14/19 at 1100, Administer with SIP of H2O only., Day of Surgery (Day of Procedure), Routine 1041 (Given - Provid er: Massiel Gregorio RN) ceFAZolin (ANCEF) 3g in dextrose 5% 100 mL (COMPLETED) 3 g, Intravenous, EVERY 3 HOURS, 1 dose, First dose on Brooke 05/14/19 at 1100, Administer over 30 Minutes, Intra-Operative (Intra-Procedure), Indication for (Active or Suspected): Prophylaxis 1310 (Given - Provid er: Teagan Abdalla MD) gabapentin (NEURONTIN) capsule 600 mg (COMPLETED) 600 mg, Oral, ONCE, 1 dose, On Brooke 05/14/19 at 1100, Administer with SIP of H2O only., Day of Surgery (Day of Procedure), Routine 1041 (Given - Provid er: Massiel Gregorio, BERRY) Continuous Medication Order 05/12/2019 05/13/2019 05/14/2019 lactated ringers infusion (CANCELED) 1,000 mL, at 100 mL/hr, Intravenous, CONTINUOUS, Starting on Brooke 05/14/19 at 1100, Until Brooke 05/14/19 at 1713, Day of Surgery (Day of Procedure) 1053 (New Bag - Prov ider: Massiel Gregorio RN) PRN Medication Order 05/12/2019 05/13/2019 05/14/2019 BUpivacaine (PF) (MARCAINE) 0.25 % (2.5 mg/mL) injection (CANCELED) ONCE PRN, Starting on Brooke 05/14/19 at 1323, Until Brooke 05/14/19 at 1919, Intra-Operative (Intra-Procedure), Routine 1323 (Given - Provid er: Juan Monge MD) fentaNYL (PF) 50mcg/mL injection (CANCELED) 12.5-25 mcg, Intravenous, EVERY 5 MIN PRN, Starting on Brooke 05/14/19 at 1504, Until Brooke 05/14/19 at 1512, Pain, Give 12.5 mcg every 5 minutes PRN for mild to moderate pain (1-5) Give 25 mcg every 5 minutes PRN for moderate to severe pain (6-10). Hold for respiratory rate less than 10 per minute. Maximum dose 250 mcg over one hour. If ordered with hydromorphone or morphine, give hydromorphone or morphine first and use fentanyl for breakthrough pain., PACU Recovery, Routine 1508 (Given - Provid er: Guerline Monson RN)1510 (Given - Provider: Guerline Monson RN - Comment: anesthesia at bedside asked to give other dose) HYDROmorphone (DILAUDID) injection 0.2-0.4 mg (CANCELED) 0.2-0.4 mg, Intravenous, EVERY 5 MIN PRN, Starting on Brooke 05/14/19 at 1515, Until Brooke 05/14/19 at 1713, Pain, Give 0.2 mg every 5 minutes PRN for mild to moderate pain (1-5) Give 0.4 mg every 5 minutes PRN for moderate to severe pain (6-10). Hold for respiratory rate less than 10 per minute. Maximum dose 4 mg over one hour. If multiple pain medications are ordered, start with hydromorphone or morphine and use fentanyl for breakthrough pain., PACU Recovery, Routine 1519 (Given - Provid er: Guerline Monson RN)1524 (Given - Provider: Guerline Monson RN)1531 (Given - Provider: Guerline Monson RN) oxyCODONE (ROXICODONE) immediate release tablet 5 mg 5 mg, Oral, EVERY 4 HOURS PRN, Starting on Brooke 05/14/19 at 1502, Until Brooke 05/14/19 at 1919, Pain, Routine 1514 (Given - Provid er: Guerline Monson RN) documented in this encounter Care Teams Farm Owner Operator Relationship Specialty Start Date End Date Radhika Xiao APRN [address] [place] [address] PCP - General Family Medicine 03/28/16 documented as of this encounter
--- OUTSIDE RECORDS SUMMARY | 2024-05-25 13:06 | XMS_ITS | Encounter Summary ---
Author Organization [facility] [place] [address] Care Team Providers Care Correctional Maintenance Technician Name Role Phone Radhika Xiao APRN Primary Care Provider Encounter Details Date Type Department Care Team (Late st Contact Info) Description 08/01/2020 Orders [place] [address] Lizet Price APRN [facility] [place] [address] Post-resection malabsorption; Disorder of iron metabolism; Status post bariatric surgery Social History Tobacco Use Types Packs/Day Years [...] as of this encounter Visit Diagnoses Diagnosis 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 [place] [address] PCP - General Family Medicine 03/28/16 documented as of this encounter
--- OUTSIDE RECORDS SUMMARY | 2024-05-25 13:06 | XMS_ITS | Encounter Summary ---
[place] [address] Care Team Providers Care Equipment Tech Name Role Phone Radhika Xiao APRN Primary Care Provider Reason for Referral * Diagnostic Test (Routine) - Closed Specialty Diagnoses / Procedures Referred By Contac t Referred To Contact Radiology Diagnoses Status post bariatric surgery Abdominal pain, periumbilical Procedures CT Abdomen & Pelvis w Contrast Bonnie Mckeon APRN [facility] [place] [address] [facility] [place] [address] Referral ID Status Reason Start Date Expiration Date V isits Requested Visits Authorized [id number] Closed Specialty Service Requested 02/18/2019 04/18/2019 1 1 Reason for Visit * Diagnostic Test (Routine) - Closed Specialty Diagnoses / Procedures Referred By Contac t Referred To Contact Radiology Diagnoses Status post bariatric surgery Abdominal pain, periumbilical Procedures CT Abdomen & Pelvis w Contrast Bonnie Mckeon APRN [facility] [place] [address] [facility] [place] [address] Referral ID Status Reason Start Date Expiration Date V isits Requested Visits Authorized [id number] Closed Specialty Service Requested 02/18/2019 04/18/2019 1 1 Encounter Details Date Type Department Care Team (Latest Contact Info) Description 02/20/2019 6:40 AM EDT - 02/20/2019 11:59 PM EDT Hospital Encounter CT Scan at [facility] [place] [address] Bonnie Mckeon, GERALD [facility] [address] [place] [address] Status post bariatric surgery; Abdominal pain, periumbilical Discharge Disposition: Home Social History Tobacco Use Types Packs/Day Years [...] on file documented as of this encounter Medications at Time of Discharge Medication Sig Dispensed Refills Start Date End Date cyclobenzaprine (FLEXERIL) 10 mg Tablet Take 10 [...] ORAL) Take 2 tablets by mouth daily. sertraline (ZOLOFT) 20 mg/mL Concentrate GIVE 3.5ML 70 MG BY MOUTH ONCE DAILY 1 12/23/2018 04/14/2019 pantoprazole (PROTONIX) 40 mg Tablet, Delayed Release (E.C.)Indications:Jaime roesophageal reflux disease, esophagitis presence not specified Take 1 tablet by mouth daily. 90 tablet 3 02/05/2019 04/25/2020 cloNIDine (CATAPRES) 0.1 mg Tablet take 1/2 tablet daily 3 07/02/201804/14 CYANOCOBALAMIN/COBAMAM ISAÍAS (B12 SL) Place under the tongue daily. 11/30/2019 documented as of this encounter Plan of Treatment Not on file documented as of this encounter Procedures Procedure Name Priority Date/Time Associated Diagnosis Comments CT ABDOMEN AND PELVIS W CONTRAST Routine 02/20/2019 9:35 AM EDT Status post bariatric surgery Abdominal pain, periumbilical documented in this encounter Results * CT Abdomen & Pelvis w Contrast (02/20/2019 9:35 AM EDT) Anatomical Region Laterality Modality Abdomen, Pelvis Computed Tomogra phy Impressions 02/20/2019 9:44 AM EDT No acute findings. Post gastric bypass surgery. No internal hernia. Thank you for letting us participate in the care of this patient. For questions regarding this report, please contact the number below. ? Narrative 02/20/2019 9:44 AM EDT EXAMINATION: ??CT ABDOMEN AND PELVIS W CONTRAST CLINICAL HISTORY: ??left intermittent periumilical pain, 100 lb weight loss after RNY, risk for internal hernia TECHNIQUE: Helical CT of the abdomen and pelvis was performed following the intravenous administration of contrast. 120 cc of Omnipaque 350. Oral contrast was administered. COMPARISON: None FINDINGS: Lower chest: Normal. Liver: Normal size and attenuation without lesions. Bile ducts: Nondilated. Gallbladder: No calcified gallstones. Normal caliber wall. Pancreas: Normal attenuation without ductal dilatation. Spleen: Normal. Adrenals: Normal. Kidneys: Normal. No renal collecting system obstruction bilaterally. Symmetric renal enhancement Urinary Bladder: Normal. Vasculature: No aneurysm. Lymph Nodes: No enlarged lymph nodes. Bowel: Post gastric bypass surgery.. No small bowel obstruction. No areas of abnormal small bowel wall thickening. The terminal ileum is normal. The appendix is visualized and is normal. No diverticulitis. Peritoneum and mesentery: No ascites, free air, or loculated fluid collection. No mesenteric inflammation. No internal hernia Abdominal wall: Normal. No hernia. Reproductive organs: Normal. Osseous structures: No suspicious lesions. Procedure Note Wilbur Avendaño MD - 02/20/2019 EXAMINATION: CT ABDOMEN AND PELVIS W CONTRAST CLINICAL HISTORY: left intermittent periumilical pain, 100 lb weight lossafter RNY, risk for internal hernia TECHNIQUE: Helical CT of the abdomen and pelvis was performed followingthe intravenous administration of contrast. 120 cc of Omnipaque 350. Oralcontrast was administered. COMPARISON: None FINDINGS: Lower chest: Normal. Liver: Normal size and attenuation without lesions. Bile ducts: Nondilated. Gallbladder: No calcified gallstones. Normal caliber wall. Pancreas: Normal attenuation without ductal dilatation. Spleen: Normal. Adrenals: Normal. Kidneys: Normal. No renal collecting system obstruction bilaterally.Symmetric renal enhancement Urinary Bladder: Normal. Vasculature: No aneurysm. Lymph Nodes: No enlarged lymph nodes. Bowel: Post gastric bypass surgery.. No small bowel obstruction. No areasof abnormal small bowel wall thickening. The terminal ileum is normal. Theappendix is visualized and is normal. No diverticulitis. Peritoneum and mesentery: No ascites, free air, or loculated fluidcollection. No mesenteric inflammation. No internal hernia Abdominal wall: Normal. No hernia. Reproductive organs: Normal. Osseous structures: No suspicious lesions. IMPRESSION No acute findings. Post gastric bypass surgery. No internal hernia. Thank you for letting us participate in the care of this patient. Forquestions regarding this report, please contact the number below. Bonnie Mckeon APRN IM[facility]ilar[facility] CT ORDERABLES documented in this encounter Visit Diagnoses Diagnosis Status post bariatric surgery Bariatric surgery status Abdominal pain, periumbilical Abdominal pain, periumbilic documented in this encounter Administered Medications Inactive Administered Medications - up to 3 most recent administrations Medication Order MAR Action Action Date Dose Rate Site iohexol (OMNIPAQUE) 350 mg/mL solution 0-200 mL 0-200 mL, Intravenous, ONCE PRN, 1 dose, Starting on Sat02/20/19 at 0936, Until Sat02/20/19 at 0936, Per Protocol, Warning Vesicant/Irritant Medication , Radiology Contrast, Routine Given 02/20/2019 9:36 AM EDT 120 mLs iohexol (OMNIPAQUE) 350 mg/mL solution 0-50 mL 0-50 mL, Oral, ONCE PRN, 1 dose, Starting on Sat02/20/19 at 0936, Until Sat02/20/19 at 0936, Per Protocol, Warning Vesicant/Irritant Medication , Radiology Contrast, Routine Given 02/20/2019 9:36 AM EDT 50 mLs documented in this encounter Care Teams Equipment Tech Relationship Specialty Start Date End Date Radhika Xiao, GERALD [address] [place] [address] PCP - General Family Medicine 03/28/16 documented as of this encounter
--- OUTSIDE RECORDS SUMMARY | 2024-05-25 13:06 | XMS_ITS | Encounter Summary ---
Author Organization [facility] [place] [address] Care Team Providers Care Priming Machine Operator Name Role Phone Radhika Xiao APRN Primary Care Provider [phone] Reason for Visit * Reason Comments Follow Up Surgery Encounter Details Date Type Department Care Team (Late st Contact Info) Description 06/11/2019 10:40 AM EDT Office [place] [address] Juan Thomas MD [facility] [place] [address] Status post bariatric surgery Social History Tobacco [...] as of this encounter Progress Notes * Juan Thomas MD - 06/11/2019 10:40 AM EDT Konstantin Hickey was seen in follow-up after his diagnostic laparoscopy where no herniation was found but any potential internal hernia defects were closed. He also had significant inflammation of hisgallbladder and this was removed. Pathology revealed chronic cholecystitis. Overall he is feeling much better and his wounds have healed well with no signs of infection. I will therefore leave his follow-up on a as needed basis and he will follow-up regularly with the bariatric program. documented in this encounter Plan of Treatment Not on file documented as of this encounter Visit Diagnoses Diagnosis Status post bariatric surgery Bariatric surgery status documented in this encounter Care Teams Priming Machine Operator Relationship Specialty Start Date End Date Radhika Xiao, PYTHON DEVELOPER [address] [place] [address] PCP - General Family Medicine 03/28/16 documented as of this encounter
--- OUTSIDE RECORDS SUMMARY | 2024-05-25 13:06 | XMS_ITS | Encounter Summary ---
[place] [address] Care Team Providers Care Director Of Home Care Hospice Name Role Phone Radhika Xiao APRN Primary Care Provider Encounter Details Date Type Department Care Team (Late st Contact Info) Description 02/06/2019 Telephone [place] [phone] Afsaneh Hdz Social History Tobacco Use Types Packs/Day Years [...] encounter Miscellaneous Notes * Telephone Encounter - Afsaneh Benites - 02/06/2019 8:21 AM EDT Called to schedule CT scan per Bonnie Linda- [email or web address] message. documented in this encounter Plan of Treatment Not on file documented as of this encounter Visit Diagnoses Not on filedocumented in this encounter Care Teams Director Of Home Care Hospice Relationship Specialty Start Date End Date Radhika Xiao APRN [address] [place] [address] [facility] [place] [address] PCP - General Family Medicine 03/28/16 documented as of this encounter
--- OUTSIDE RECORDS SUMMARY | 2024-05-25 13:06 | XMS_ITS | Encounter Summary ---
[place] [address] Care Team Providers Care Plant Custodian Name Role Phone Radhika Xiao APRN Primary Care Provider Encounter Details Date Type Department Care Team (Late st Contact Info) Description 02/10/2019 Telephone [place] [phone] Afsaneh Hdz Social History Tobacco Use Types [...] * Telephone Encounter - Afsaneh Benites - 02/10/2019 1:38 PM EDT Left message for patient to call me back - attempting to schedule CT scan per Ron Mckeon's request documented in this encounter Plan of Treatment Not on file documented as of this encounter Visit Diagnoses Not on filedocumented in this encounter Care Teams Plant Custodian Relationship Specialty Start Date End Date Radhika Xiao APRN [address] [place] [address] [place] [address] PCP - General Family Medicine 03/28/16 documented as of this encounter
--- OUTSIDE RECORDS SUMMARY | 2024-05-25 13:06 | XMS_ITS | Encounter Summary ---
[facility] [place] [id number] Care Team Providers Care Otolaryngology Surgeon Name Role Phone Angela Xiaoi GERALD Primary Care Provider Encounter Details Date Type Department Care Team (Late st Contact Info) Description 02/05/2019 Notes Only [place] [address] [facility] [place] [id number] Social History Tobacco Use Types Packs/Day Years [...] Progress Notes * Cinthya Donaldson RD - 02/05/2019 12:39 PM EDT Bariatric Surgery Program Nutrition Follow-up Note 02/05/2019 Provider: Cinthya Donaldson, MS, RD, LD Reason for encounter: Konstantin Hickey is a 38 y.o. male who is seen today for a 2.75 year follow-upvisit. He is also seeing Bonnie Mckeon APRN for a visit today Date of Surgery: 05/16/2016 RNY gastric bypass Topics Discussed/Patient Concerns: Winter was difficult - struggled with depression and craved too many carbs; schedule remains hectic with a baby at home and working the 2AM-2PM shift at the [employer] averages ~ 3 hours of sleep per night. Notes his weight was down to 240# prior to marriage last year; he has already lost some of the winter weight he gained was at 318# Weight History: Date Weight (lbs) HT BMI [...] 02/05/19 304# 45% 42 2.75 years post-op Porter Body Weight (based on BMI of 25): 174# Excess Weight: 218# 50-70% Excess Weight Loss: 230-285# ?? Vitamin/Mineral Supplements (reported by patient): Supplement Type Brand/Form Dosage/Amount Frequency Comments Multivitamin Men's MVM 2 daily ?? Calcium ? None Vitamin B12 pill 1000 mcg Once daily ?? Iron ?? 325 mg daily Chooses to take feels better?? Vitamin C chewable 500 mg Daily w/iron pill ? Vitamin D 2 pills unsure of dose daily ? Past Medical History: Diagnosis Date ??? HLD (hyperlipidemia) ??? Morbid obesity ??? [place] (obstructive sleep apnea) Reported Oral Intake: Meal 1 2 AM - leftovers before going to work Meal 2 6:30 AM - quesadilla with salsa, cheese and chicken Meal 3 Noon - protein, beans, carrots food at the [employer] Meal 4 6 PM - grilled chicken and veggies (pt cooks) Fluid 2 c coffee, 64 oz [place] water, one Coke Zero ETOH Sporadically has 12-18 beers over several hours (1-2 x month) depending on social schedule Exercise: walks throughout shift at the [employer]; just got a mountain bike and baby carriage to pull behind; di a lot of serious mountain biking when younger living in [place] Social Hx: 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 Lives with his and 5 children (a new born, twins age 4, son age 5, daughter age 10). Vision at 2 years post-op: more energy - run a Occl[employer]ch with his kids, tough Welocalizeder or spartan race 1 year post-op. Being involved with kids activities ASSESSMENT: 45% EWL is within the expected range but has been trending up; pt is concerned and presents today as motivated to remain on track; protein and fluid are adequate; alcohol intake is a big concern with sporadic binging - daily consumption not reported; vitamin compliance is partial - needs to start calcium and probably stop iron NUTRITION INTERVENTION & MONITORING: ?? Follow-up in 3 months per his request ?? Provided support/encouragement and reinforced importance of meeting nutritional goals. Alcohol is not recommended - reduction/elimination strongly suggested ?? Reviewed nutrition and vitamin and mineral supplement recommendations. Start calcium and stop iron ?? Written recommendations provided on the AVS ?? Evaluation by nurse practitioner today. ?? Has the [employer] Booklet for reference documented in this encounter Plan of Treatment Not on file documented as of this encounter Visit Diagnoses Not on filedocumented in this encounter Care Teams Otolaryngology Surgeon Relationship Specialty Start Date End Date Radhika Xiao, GERALD [address] [place] [address] PCP - General Family Medicine 03/28/16 documented as of this encounter
--- OUTSIDE RECORDS SUMMARY | 2024-05-25 13:06 | XMS_ITS | Encounter Summary ---
[place] [address] Care Team Providers Care Concaver Name Role Phone Radhika Xiao APRN Primary Care Provider Encounter Details Date Type Department Care Team (Late st Contact Info) Description 02/12/2019 Orders Only [place] [phone] Krissy Rangel Social History Tobacco Use Types Packs/Day Years [...] on filedocumented in this encounter Care Teams Concaver Relationship Specialty Start Date End Date Radhika Xiao APRN [address] [place] [address] PCP - General Family Medicine 03/28/16 documented as of this encounter
--- OUTSIDE RECORDS SUMMARY | 2024-05-25 13:06 | XMS_ITS | Encounter Summary ---
Author Organization [facility] [place] [address] Care Team Providers Care Gluer Name Role Phone Radhika Xiao APRN Primary Care Provider [phone] Reason for Visit * Reason Onset Date Comments Medication Refill 04/25/2020 Encounter Details Date Type Department Care Team (Late st Contact Info) Description 04/25/2020 Refill [place] [address] Bonnie Mckeon, SENIOR PROGRAM MANAGER [facility] [address] [place] [address] Gastroesophageal reflux disease, esophagitis presence not specified [...] specified documented in this encounter Care Teams Gluer Relationship Specialty Start Date End Date Radhika Xiao APRN [facility] [place] [address] PCP - General Family Medicine 7/13/16 documented as of this encounter
--- OUTSIDE RECORDS SUMMARY | 2024-05-25 13:06 | XMS_ITS | Encounter Summary ---
Author Organization [facility] Address [facility] [place] [address] Care Team Providers Care Supervisor Tan Room Name Role Phone Radhika Xiao APRN Primary Care Provider [phone] Reason for Visit * Auth/Cert Specialty Diagnoses [...] Expiration Date Visits Re quested Visits Authorized [id number] 1 1 Encounter Details Date Type Department Care Team (Latest Contact Info) Description 05/14/2019 9:51 AM EDT - 05/14/2019 5:15 PM EDT Hospital Encounter [place] [id number] Juan Monge MD [facility] [place] [address] Discharge Disposition: Home Social History Tobacco Use [...] Sign Reading Time Taken Comments Blood Pressure 114/65 05/14/2019 3:45 PM EDT Pulse 66 05/14/2019 3:00 PM EDT Temperature 36.4 ??C (97.5 ??F) 05/14/2019 3:00 PM ED T Respiratory Rate 14 05/14/2019 3:30 PM EDT Oxygen Saturation 97% 05/14/2019 4:17 PM EDT Inhaled Oxygen Concentration - - [...] 101.3 F. The number for questions is [phone] before 5 PM weekdays and [phone] after 5 PM and weekends. Pain Medication: [...] at the General Surgery Outpatient Clinic - Dry Drug Worker 4. You will receive a letter in the mail confirming the appointment date and time. Your follow-up is very important to us. Please call [phone] if you do not hear from us [...] DIAGNOSTIC performed by Julia Ashraf MD at [facility] ENDOSCOPY ??? PRO LAP GASTRIC BYPASS/ANABELLE-EN-Y N/A 05/16/2016 @LAPAROSCOPIC GASTROPLASTY, performed by Juan Monge MD at [facility] MAIN OR ??? PRO UPPER GI ENDOSCOPY, BIOPSY N/A 04/04/2016 UPPER GASTROINTESTINAL ENDOSCOPY,WITH BIOPSY SINGLE OR MULTIPLE performed by Julia Ashraf MD at [facility] ENDOSCOPY ??? PRO UPPER GI ENDOSCOPY, BIOPSY N/A 01/09/2018 EGD WITH BIOPSY (WRVU 2.49) performed by Ramón Minaya MD at [facility] ENDOSCOPY ??? PRO UPPER GI ENDOSCOPY, DIAGNOSTIC N/A 04/04/2016 EGD, UPPER GI ENDOSCOPY performed by Julia Ashraf MD at [facility] ENDOSCOPY ??? PRO UPPER GI ENDOSCOPY, DIAGNOSTIC N/A 05/16/2016 ENDOSCOPY, UPPER GI, DIAGNOSTIC, WITH OR WITHOUT SPECIMENS performed [facility] No current facility-administered medications on file [...] Monge MD - 05/14/2019 5:15 PM EDT [facility] Operative Note Patient Name: Konstantin Hickey : [id number] MR#: [id number] Case Date: 05/14/2019 Surgeon: Surgeon(s) and Role: [...] incision is completely closed without any wires, angelita, drains or other devices Disposition: awakened from [...] Operative Note Patient Name: Konstantin Hickey : [id number] MR#: [id number] Case Date: 05/14/2019 Surgeon: Surgeon(s) and Role: [...] 05/14/2019 2:34 PM EDT Lap, Diagnostic Abdomen (96000) Yes 05/14/2019 12:46 PM EDT ABDOMINAL PAIN Unlisted Lap Proc Hrnap Herniorrhaphy Herniotomy ([id number]) Yes 05/14/2019 12:46 PM EDT ABDOMINAL PAIN Lap, Cholecystectomy (92577) Yes 05/14/2019 12:46 PM EDT ABDOMINAL PAIN Upper GI Endoscopy, Diagnostic ([id number]) Yes 05/14/2019 12:46 PM EDT ABDOMINAL PAIN documented in this encounter Results * Surgical Pathology Report (05/14/2019 2:34 PM EDT) Final Diagnosis [id number] ? Location: [facility]; [facility]; A The signing pathologist has (i) examined the relevant preparation(s) for the specimen(s) and (ii) rendered or confirmed the diagnosis(es). . ?Surgical Pathology DIAGNOSIS Gallbladder and contents: Chronic cholecystitis Electronically signed by: ??Sandhya Frankel MD Verified: ??05/20/2019 ?Pathologist Performed at: ??-[facility] Dept. of Pathology, [place], [place] CLINICAL INFORMATION Specimen Submitted: A - Gallbladder and contents Clinical History and Diagnosis: Abdominal pain SPECIMEN PROCESSING A - Labeled/Fixative: Gallbladder and contents, fresh. Quantity/Size: ??Single, 9.1 x 4.8 x 3.0 cm. Specimen Description: Gallbladder, received Intact. Serosa: [place], glistening, unremarkable Adventitia: Ragged, quite related, pink, without gross lesions Lumen contents: Green, viscous, bile. Gallstones: Absent Mucosa: Brown green, granular Wall: 0.1 -0.3 cm thick. Duct: 0.9 x 0.5 cm, patent. Ink Designation: The hepatic margin is inked black Sections/Processi ng: Instructional Services Specialist sections in 2 cassettes as follows: ?A1: ??cystic duct margin and advertising account representative mucosa. ?A2: ??Additional mucosa ??rh 05/20/2019 1:45 PM EDT [facility] GALLBLADDER STRUCTURE / Unknown 05/14/2019 2:34 PM EDT 05/14/2019 2:34 PM EDT Juan Monge MD PATHOLOGY/CYTOLOGY [place] Performing Organization Address [facility] Co de Phone Number [facility] [place] [address] * Specimen to Pathology (05/14/2019 2:34 PM EDT) AP Specimen 05/14/2019 2:34 PM EDT 05/14/2019 2:34 PM EDT Narrative [facility] - 05/14/2019 2:34 PM EDT Specimen requisition ordered. ??Separate Pathology report to follow Juan Monge MD PATHOLOGY/CYTOLOGY [place] Performing Organization Address [facility] [place] [address] documented in this encounter Visit Diagnoses Not [...] Given 05/14/2019 10:41 AM EDT 1,000 mg fentaNYL (PF) 50mcg/mL injection 12.5-25 mcg, Intravenous, [...] (Given - Provid er: Massiel Gregorio RN) Continuous Medication Order 05/12/2019 05/13/2019 05/14/2019 lactated ringers infusion (CANCELED) 1,000 mL, at 100 mL/hr, Intravenous, CONTINUOUS, Starting on Brooke 05/14/19 at 1100, Until Brooke 05/14/19 at 1713, Day of Surgery (Day of Procedure) 1053 ([facility] - Prov ider: Massiel Gregorio RN) PRN [...] Guerline Monson RN)1524 (Given - Provider: Guerline Monson, BERRY)1531 (Given - Provider: Guerline Monson, BERRY) oxyCODONE (ROXICODONE) immediate release tablet 5 mg 5 mg, Oral, EVERY 4 HOURS PRN, Starting on Brooke 05/14/19 at 1502, Until Brooke 05/14/19 at 1919, Pain, Routine 1514 (Given - Provid er: Guerline Monson RN) documented in this encounter Care Teams Supervisor Tan Room Relationship Specialty Start Date End Date Radhika Xiao, GERALD [address] [place] [address] PCP - General Family Medicine 03/28/16 documented as of this encounter
--- OUTSIDE RECORDS SUMMARY | 2024-05-25 13:06 | XMS_ITS | Encounter Summary ---
Author Organization [facility] [place] [address] Care Team Providers Care Warp Changer Name Role Phone Radhika Xiao APRN Primary Care Provider [phone] Reason for Visit * Auth/Cert Specialty Diagnoses [...] Expiration Date Visits Re quested Visits Authorized [id number] 1 1 Encounter Details Date Type Department Care Team (Late st Contact Info) Description 05/14/2019 12:47 PM EDT Anesthesia Event [place] [address] Leydi Abdalla MD [facility] [place] [address] Ramila Stone MD [facility] [place] [address] Anesthesia Record Procedure Summary Procedure Name Responsible Anesthesiologist Anesthesia Start Time Anesthesia Stop Time EGD, UPPER GI ENDOSCOPY (WRVU 2.09) (Esophagus) Leydi Abdalla MD 05/14/19 1247 05/14/19 1513 Events Date Time Event Comment 05/14/2019 1247 AN Verify 1247 Start 1247 An Start Data 1255 An Induction 1259 An Intubation 1303 Anesthesia Ready 1304 Break/Relief In LEYDI GREENE MD 1323 Procedure Start 1338 Quick Note egd 1341 Quick Note EGD finished 1350 Break/Relief Out 1443 Quick Note Severe lance pr esumed to be vagal. Gave glycopyrrolate and phenylephrine with good response, patient also vomited at this time. 1453 Extubation/LMA Out 1456 an stop data 1512 Recovery or ICU Handoff Betty ent care was transferred to the destination unit staff after review of the patient's medical history, current anesthetic/surgical status and plan, according to the Provider Handoff Checklist. 1513 Stop 05/15/2019 1544 Meds Name Total Midazolam 2 mg fentaNYL 100 mcg Propofol 200 mg Propofol INF 2,102.16 mg ceFAZolin (ANCEF) 3g in dextrose 5% 100 mL 3 g Succinylcholine 200 mg Rocuronium 50 mg ePHEDrine 10 mg Dexmedetomidine INF 92.43 mcg Ondansetron 4 mg Glycopyrrolate 1 mg Neostigmine 3 mg PHENYLephrine 160 mcg * Agents Name O2 Air N2O Isoflurane (et) * Blood No blood administrations on file. Lines, Drains, and Airways Type Details Placement Removal Incision 05/16/16; abdomen; laparoscopic puncture (trocar sites x 6); 05/14/22 (LDA cleanup utility RA#[id number]); 1715 (LDA cleanup utility RA#[id number]) 05/16/16 0000 by Adele Monroe RN 05/14/22 1715 by Andreina Gomez (RETIRED) Peripheral IV Line - Single Lumen 05/14/19; 1053; cephalic vein (lateral side of arm), left; kygk-mey-oxquln catheter system; 20 gauge; intradermal injection, tolerated well; catheter/device intact, removed per policy/procedure; 05/14/19; 1707 05/14/19 1053 by Massiel Gregorio RN 05/14/19 1707 by Guerline Alcantar RN ETT Mask Ventilation: Ea sy (1); ETT Size: 8 mm; Mac Blade: 4; Attempts: 1; Laryngoscopy Grade: 1; ETT Placement Verified By: Auscultation, Capnometry, Visual; Secured at Teeth: 24 cm; Inserted by: Leyda PAUL; Removal Date: 05/14/19; Removal Time: 1453 05/14/19 1304 by Leydi Abdalla MD 05/14/19 1453 by Ramila Stone MD Incision 05/14/19; 1323; abdo men; laparoscopic puncture; 05/14/22 (LDA cleanup utility RA#[id number]); 1715 (LDA cleanup utility RA#[id number]) 05/14/19 1323 by Francesca Mcdaniel RN 05/14/22 1715 by Andreina Gomez documented in this encounter Social History Tobacco Use Types Packs/Day Years [...] on file documented as of this encounter OR Notes * Anesthesia Postprocedure Evaluation - Leydi Abdalla MD - 05/14/2019 3:13 PM EDT Department of Anesthesiology Post-procedure Note Patient: Konstantin Hickey Procedure Summary Date: 05/14/19 Room / Location: [address] MAIN OR Anesthesia Start: 1247 Anesthesia Stop: 1513 Procedures: EGD, UPPER GI ENDOSCOPY (N/A Esophagus) LAPAROSCOPIC CHOLECYSTECTOMY (WRVU 10.47) (N/A Abdomen) LAPAROSCOPIC INTERNAL HERNIA REPAIR (WRVU *) (N/A Abdomen) LAPAROSCOPY, DIAGNOSTIC, ABDOMEN (WRVU 5.14) (N/A Abdomen) Diagnosis: (ABDOMINAL PAIN) Surgeon: Juan Thomas MD Responsible Provider: Leydi Abdalla MD Anesthesia Type: general ASA Status: 3 All Anesthesia Providers: Anesthesiologist: Leydi Abdalla MD Emergency Response Coordinator: Ramila Stone MD Vitals Value Taken Time BP 123/60 05/14/2019 3:04 PM Temp Pulse Resp SpO2 96 % 05/14/2019 3:12 PM Pain Level 10 05/14/2019 3:08 PM Vitals shown include unvalidated device data. Patient Location: PACU/SDP Level of Consciousness: Awake and Alert Pain Management: Pain Being Addressed PONV: None Cardiovascular Status: At Baseline Respiratory Status: At Baseline Postoperative Fluid Status: Intravascular EUvolemia Possible Anesthetic Complications: NONE apparent at time of evaluation Final Primary Anesthesia Type: General (The anesthetic type performed was the same as planned.) Comments: Attending note: Patient did well - had vagal episode intraop but responded well to medication. Pain difficult to control at the beginning but resolved with dilaudid. No PONV. VSS, alert and oriented. * Anesthesia Preprocedure Evaluation - Ramila Stone - 05/13/2019 8:04 PM EDT Pre-Anesthesia Evaluation for: Konstantin Hickey a 38 y.o. male. Procedure(s): LAPAROSCOPY,SURGICAL,WITH BIOPSY, SINGLE OR MULTIPLE (WRVU 5.44) EGD, UPPER GI ENDOSCOPY LAPAROSCOPIC CHOLECYSTECTOMY WITH CHOLANGIOGRAM (WRVU 11.47) Patient Active Problem List Diagnosis ??? Health care maintenance ??? Impaired fasting glucose ??? Disorder of iron metabolism ??? Status post bariatric surgery ??? GAYLE (iron deficiency anemia) ??? Depression ??? Daytime somnolence ??? Gastroesophageal reflux ??? Allergic rhinitis ??? Low back pain ??? HLD (hyperlipidemia) ??? S/P gastric bypass 05/16/[address] Thomas for h/o class IV obesity ??? Acrochordon Past Medical History: Diagnosis Date ??? HLD (hyperlipidemia) ??? Morbid obesity ??? AUSTIN (obstructive sleep apnea) ??? Pain in right shoulder 02/21/2016 Past Surgical History: Procedure Laterality Date ??? PRO COLONOSCOPY, DIAGNOSTIC N/A 04/04/2016 COLONOSCOPY, DIAGNOSTIC performed by Julia Ashraf MD at [facility] ENDOSCOPY ??? PRO LAP GASTRIC BYPASS/ANABELLE-EN-Y N/A 05/16/2016 @LAPAROSCOPIC GASTROPLASTY, performed by Juan Thomas MD at [facility] MAIN OR ??? PRO UPPER GI ENDOSCOPY, BIOPSY N/A 04/04/2016 UPPER GASTROINTESTINAL ENDOSCOPY,WITH BIOPSY SINGLE OR MULTIPLE performed by Julia Ashraf MD at [facility] ENDOSCOPY ??? PRO UPPER GI ENDOSCOPY, BIOPSY N/A 01/09/2018 EGD WITH BIOPSY (WRVU 2.49) performed by Ramón Minaya MD at [facility] ENDOSCOPY ??? PRO UPPER GI ENDOSCOPY, DIAGNOSTIC N/A 04/04/2016 EGD, UPPER GI ENDOSCOPY performed by Julia Ashraf MD at [facility] ENDOSCOPY ??? PRO UPPER GI ENDOSCOPY, DIAGNOSTIC N/A 05/16/2016 ENDOSCOPY, UPPER GI, DIAGNOSTIC, WITH OR WITHOUT SPECIMENS [facility] Social History Tobacco Use ??? Smoking status: Former Smoker Packs/day: 0.25 Years: 2.00 Pack years: 0.50 Types: Cigarettes Last attempt to quit: 04/10/2018 Years since quittin.0 ??? Smokeless tobacco: Never Used Substance Use Topics ??? Alcohol use: Yes Comment: special occasions Social History Substance and Sexual Activity Drug Use No Allergies Allergen Reactions ??? Other [Unclassified Drug] Itching Erythromycin opthalmic drops Medications: MAR and/or home medications have been reviewed. Physical Exam: There were no vitals filed for this visit. There is no height or weight on file to calculate BMI. Airway Assessment: Mallampati: I TM distance: >3 FB Neck ROM: full Cardiovascular Assessment: Rhythm: regular Rate: normal Pulmonary Assessment: breath sounds clear to auscultation Dental Assessment: Misc Assessment: Patient is wearing No contact(s). IV access: Peripheral line Anesthesia Plan: ASA 3 general, with a(n) intravenous induction Konstantin Hickey is a 38 y.o. morbidly obese male with AUSTIN, GERD, HTN, HLD with history of laparoscopic gastroplasty, endoscopy and laparoscopic liver biopsy in 2016 here for laparoscopic cholecystectomy and cholangiogram. No cardiac, hepatic, renal disease or coagulopathy. Previous anesthesia: adjunct for masking, c-mac, grade 1 view, 7.5 ETT Anesthetic Plan: GA with ETT will consider c-mac due to size, RSI Standard ASA monitoring PIV access Region - Other Informed Consent: PAT Clinic Note documented in this encounter Plan of Treatment Not on file documented as of this encounter Visit Diagnoses Not on filedocumented in this encounter Administered Medications Inactive Administered Medications - up to 3 most recent administrations Medication Order MAR Action Action Date Dose Rate Site ceFAZolin (ANCEF) 3g in dextrose 5% 100 mL 3 g, Intravenous, EVERY 3 HOURS, 1 dose, First dose on Brooke 05/14/19 at 1100, Administer over 30 Minutes, Intra-Operative (Intra-Procedure), Indication for (Active or Suspected): Prophylaxis Given 05/14/2019 1:10 PM EDT 3 g dexmedetomidine (PRECEDEX) 4 mcg/mL (standard Adult & Pedi greater than 20kg) infusion (premix) CONTINUOUS PRN, Starting on Brooke 05/14/19 at 1255, Until Brooke 05/14/19 at 1513, Anesthesia Intra-op Rate/Dose Change 05/14/2019 2:23 PM EDT 0.2 mcg/kg/hr 6.9 mL/hr Rate/Dose Change 05/14/2019 1:32 PM EDT 0.3 mcg/kg/hr 10.4 mL/hr New Bag 05/14/2019 12:55 PM EDT 0.4 mcg/kg/hr 13.8 mL/h r ePHEDrine 5 mg/mL multi-dose injection PRN, Starting on Brooke 05/14/19 at 1308, Until Brooke 05/14/19 at 1513, Anesthesia Intra-op, Routine Given 05/14/2019 1:08 PM EDT 10 mg fentaNYL 50 mcg/mL multi-dose injection PRN, Starting on Brooke 05/14/19 at 1302, Until Brokoe 05/14/19 at 1513, Anesthesia Intra-op, Routine Given 05/14/2019 1:02 PM EDT 100 mcg glycopyrrolate (ROBINUL) multi-dose injection PRN, Starting on Brooke 05/14/19 at 1439, Until Brooke 05/14/19 at 1513, Anesthesia Intra-op, Routine Given 05/14/2019 2:43 PM EDT 0.4 mg Given 05/14/2019 2:39 PM EDT 0.6 mg midazolam (PF) (VERSED) multi-dose injection PRN, Starting on Brooke 05/14/19 at 1250, Until Brooke 05/14/19 at 1513, Anesthesia Intra-op, Routine Given 05/14/2019 12:50 PM EDT 2 mg neostigmine (BLOXIVERZ) injection PRN, Starting on Brooke 05/14/19 at 1443, Until Brooke 05/14/19 at 1513, Anesthesia Intra-op, Routine Given 05/14/2019 2:39 PM EDT 3 mg ondansetron (ZOFRAN) injection PRN, Starting on Brooke 05/14/19 at 1429, Until Brooke 05/14/19 at 1513, Anesthesia Intra-op, Routine Given 05/14/2019 2:29 PM EDT 4 mg PHENYLephrine in NS (PF) (ARELY-SYNEPHRINE) 0.8 mg/10 mL (80 mcg/mL) multi-dose injection Syrg PRN, Starting on Brooke 05/14/19 at 1452, Until Brooke 05/14/19 at 1513, Anesthesia Intra-op, Routine Given 05/14/2019 2:52 PM EDT 160 mcg propofol (DIPRIVAN) 10 mg/mL bolus injection (Anesthesia) PRN, Starting on Brooke 05/14/19 at 1255, Until Brooke 05/14/19 at 1513, Anesthesia Intra-op Given 05/14/2019 12:55 PM EDT 200 mg propofol (DIPRIVAN) infusion CONTINUOUS PRN, Starting on Brooke 05/14/19 at 1255, Until Brooke 05/14/19 at 1513, Anesthesia Intra-op, Routine Rate/Dose Change 05/14/2019 2:34 PM EDT 50 mcg/kg/min 41.5 mL/hr Rate/Dose Change 05/14/2019 2:30 PM EDT 75 mcg/kg/min 62.2 mL/hr Rate/Dose Change 05/14/2019 2:17 PM EDT 100 mcg/kg/min 83 mL/hr rocuronium (ZEMURON) multi-dose injection PRN, Starting on Brooke 05/14/19 at 1311, Until Brooke 05/14/19 at 1513, Anesthesia Intra-op, Routine Given 05/14/2019 1:11 PM EDT 50 mg succinylcholine chloride (Quelicin) injection PRN, Starting on Brooke 05/14/19 at 1258, Until Brooke 05/14/19 at 1513, Anesthesia Intra-op, Routine Given 05/14/2019 12:58 PM EDT 200 mg documented in this encounter Care Teams Warp Changer Relationship Specialty Start Date End Date Radhika Xiao, SHEETROCK APPLICATOR [address] [facility] [place] [address] PCP - General Family Medicine 03/28/16 documented as of this encounter
--- OUTSIDE RECORDS SUMMARY | 2024-05-25 13:06 | XMS_ITS | Encounter Summary ---
[place] [address] Care Team Providers Care Commercial Property Administrator Name Role Phone Andrylamarchandler Radhika GERALD Primary Care Provider [phone] Reason for Referral * Diagnostic Test (Routine) - Closed Specialty Diagnoses / Procedures Referred By Kitty carrion Referred To Contact Radiology Diagnoses Status post bariatric surgery Abdominal pain, periumbilical Procedures CT Abdomen & Pelvis w Contrast Bonnie Mckeon APRN [facility] [place] [address] [facility] [place] [address] Referral ID Status Reason Start Date Expiration Date V isits Requested Visits Authorized [id number] Closed Specialty Service Requested 02/18/2019 04/18/2019 1 1 Reason for Visit * Reason Comments Follow-up s/p bariatric surger y Encounter Details Date Type Department Care Team (Latest Contact Info) Description 02/05/2019 12:30 PM EDT Office [place] [address] Bonnie Mckeon APRN [facility] [place] [address] [facility] [place] [address] Disorder of iron metabolism; Status post bariatric surgery; Intestinal malabsorption, unspecified type; Gastroesophageal reflux disease, esophagitis presence not specified; Depression, unspecified depression type; Iron deficiency anemia, unspecified iron deficiency anemia type; Abdominal pain, periumbilical Social History Tobacco Use Types Packs/Day Years [...] Sign Reading Time Taken Comments Blood Pressure 126/72 02/05/2019 12:53 PM EDT Pulse 70 02/05/2019 12:53 PM EDT Temperature - - Respiratory Rate - - Oxygen Saturation 99% 02/05/2019 12:53 PM EDT Inhaled Oxygen Concentration - - Weight 137.9 kg (304 lb) 02/05/2019 12:53 PM EDT Height - - Body Mass Index 42.4 01/09/2018 9:48 AM EDT documented in this encounter Patient Instructions * Patient Instructions* Bonnie Mckeon APRN - 02/05/2019 12:30 PM EDT [facility] technical support coordinator Afsaneh [phone] and Krissy [phone] Dietitians: [phone] Surgeons/ nurse practitioners: [phone] Nurse line: [phone] Testing: Labwork: Today. Go to [facility], which is 1 flight below the General Surgery Clinic. I will notify you via [facility] regarding your results and recommendations A copy of your labwork and office visit today is sent to your primary acute care certified nursing assistant I am going to check with Dr Thomas, we will likely order a CT, our secretaries will give you a call Next visit: 3 months Routine visits are done at 4.8,12, 18 and 24 months after surgery, and yearly thereafter. Please call [phone] if you do not receive an appointment by 3-4 weeks prior to the expected visit. Medications: 1. I will order a new PPI from [facility], they will call you 2.Further recommendations pending labwork. 3. It's ok to take regular zoloft, you dont need liquid s/p RNY Referrals: none Vitamins: The following vitamins are recommended: ??? Multivitamins with minerals twice daily- needs to be an under 50 multivitamin that contains iron. No senior multivitamins. (Or read the serving size if taking a Bariatric specific multivitamin such as procare). ??? Vitamin B12 500 mcg by mouth once daily ??? Calcium citrate 600 mg with Vitamin D 400 units twice daily (600 mg in AM and 600 mg in PM- 2 pills twice a day) (or 1 chewable twice a day) ??? Iron with Vitamin C, 50-66 mg once daily (take iron with vitamin C 250 mg to help with absorption) only if you have regular periods, iron deficiency or anemia. Nutrition recommendations: Shoot for a loss of 2 lbs a week - Your Daily Goals: ?? 1,000-1,200 calories per day (300 calories per meal, 100 calories per snack, 1-2 snacks per day) ?? 60 grams of protein per day (20 grams per meal) ?? 48-64 oz of non-caloric and hydrating fluids per day (6-8, 8 oz cups) ?? Do not drink with meals- pushes food through more quickly, can cause upset stomach Activity: Figure out a time to use elliptical, go bike riding at least once a week ??? Aim for 30 minutes of exercise daily, 5 days a week of both cardio and strength training exercises. Alcohol: should be used sparingly, no more than one drink per occasion. Alcohol is a source of empty calories and can cause ulcers and vitamin and mineral deficiencies. Alcohol is toxic to the liver and is absorbed more quickly after surgery, it stays in the system longer. Studies have noted that there is an increased risk of alcohol dependence after bariatric surgery. Alcohol is not recommended until at least 6-12 months post surgery, and after goal weight has been achieved f non-prescribed drugs and treet drugs is unsafe Anti-inflammatory medications such as Ibuprofen (Advil), Aleve (Naproxen), Excedrin, should be usedsparingly after gastric bypass, since they increase the risk of ulcer and bleeding. Hair Loss: is associated with rapid weight loss and is seen approximately 3 to 6 months after surgery and can last 3 to 6 months. It is almost always temporary. Eating a healthy diet with 60 grams ofprotein per day and taking your multivitamin with minerals will help. Call us: ??? If you have concerns. ??? If you have unexplained abdominal pain. ??? if you see blood in your stool or vomit blood ??? If you have prolonged vomiting Post Surgery Support Group: Our post surgery support group meets on the first Saturday of every month from 1-2 PM at [facility] no [place] required Nutrition and Activity apps- [employer], My Fitness Pal, Lose It Internet resources: www.The A-[employer] Clubhouse www.[employer] www.bariatriceaClou Electronics Co[employer] Ltd[employer]Rentify www.TV Pixie.Rentify/blog [facility] facebook page: https://www.Interactif Visuel [employer]st[employer].com/[facility] Books & Magazines: - Recipes for Life After Weight Loss Surgery by Nelda Wahl - Shrink Yourself by Dr Aleksandr Arriaza - Eating Well - www.[employer]ell Technologies - Cooking Light- www.Cresta[employer].Rentify documented in this encounter Progress Notes * Bonnie Mckeon APRN - 02/05/2019 12:30 PM EDT Reason for visit: Follow up S/P laparoscopic Jessica-en-Y gastric bypass, Dr. Thomas on 05/16/16.? Complications summary: Early None Late intermittent abdominal pain ? Visits to emergency department or other unplanned visit to a health care facility since last visit?no ?? Changes to health/ evaluations/ social history since last visit: as per updated problem list and e-DH.??Continues to work very long hours, gets little sleep, 5 young children-ages <1 to 11 years. ?? Compliance with [facility] follow up: good-considering his work schedule he has done well with follow up Attendance at [facility] post-operative graduate support group meetings: none Pre-op 03/28/16 Wt (lbs) 408# BMI 57.3 Visit #2 WT: 04/04/16: 403# HT: 5'10.75 Intro:??06/17/2015 ? Post-op ? %EBW lost Supplement compliance Labwork 06/06/2016 361.2# 50.72 19.1 -Critz 1 ??BID -Fe SO4??325 mg qd --Vitamin C 500 mg qd - ca cit w/vit D 1 chew BID -B12 SL 500 mcg qd ?08/31/2016 ??316.13 ??44.5 ??37.6 ??Good. -MVI 1 tab qd -BA Ca Cit 1 chew BID -B12 SL 500 mcg qd -Ferrous Sulfate 325 mg qd w/vit C 500 mg qd 08/31: Hg 13.6 Hct 40.7 [id number] iron 29 sat 11% B12 1820 Nl B1 fol CMP PTH 55 D 27 prealbumin 17 A1c 5.4 12/26/16 285 40.03 53 -MVI 1 tab qd -BA Ca Citrate 1 chew BID -B12 SL 500 mcg qd -Fe [id number] mg w/vit C 500 mg BID 12/28: Hg 14.7 Hct 43.6 ferritn 146 iron 84 sat 28% B12 >2000 Nlfolate B1 CMP PTH 39 D 42 prealbumin 20 05/22/17 269 37.8 60 -MVI 1 tab qd -BA Ca Citrate 1 chew BID -B12 SL 500 mcg qd -Fe So4 325 w/C 500 mg/D D3 1K/day 05/22: Hg 15.2 Hct 43.8 ferritin 161 iron 105 sat 37%. Nl CMP D 33 prealbumin 22 ?? Next visit: November- iron screen 11/20/2017 284 39.9 54 See docking saw operator note Pending today; lipids, A1C, iron studies, hemagram, CMP, Vit D, B1 B12, folate 07/11/2018 289 40.3 48 Had stopped taking as he was struggling with a near total breakdown restarted 2 weeks ago -was seen by pcp and started on medication for anxiety, is in counseling weekly Today 02/05/2019 304 42 45 Is taking consistently, see RD note, taking iron Complete labs today ? Screening/other: Date?? Evaluation?? Results?? 06/2018 Primary care ?? Medication management, anxiety 01/09/2018 EGD ??There were esophageal mucosal changes suspicious for ?short-segment Valentine's esophagus present in the ?lower third of the esophagus. Mucosa was biopsied ?with a cold forceps for histology. Verification of ?patient identification for the specimen was done. ?Estimated blood loss was minimal. ?Patchy mildly erythematous mucosa without bleeding ?was found in the cardia. Biopsies were taken with a ?cold forceps for histology. Verification of patient ?identification for the specimen was done. Estimated ?blood loss was minimal. ?Evidence of a Jessica-en-Y gastrojejunostomy was found. ?The gastrojejunal anastomosis was characterized by ?healthy appearing mucosa. This was traversed. - Esophagus, ??biopsy: - Squamocolumnar (cardia-type) junctional mucosa with chronic and focal active ??inflammation. ??There is no evidence of intestinal metaplasia. B - Stomach, ??biopsy: i- Body/fundic-type mucosa, negative for diagnostic abnormality. 04/04/16 Colonoscopy?? Entire colon normal including TI Never?? DEXA? Visits to emergency department or other unplanned visit to a health care facility since last visit?None Changes to health/ evaluations/ social history since last visit: as per updated problem list and e-DH Subjective. Patient concerns at today's visit: Konstantin returns for routine follow up. He had significant weight regain over the winter, was up to 318 but is down to 304 now. He had some severe symptoms of depression over the winter, he has been in regular counseling and has been taking zoloft which he feels is very helpful. He still struggles with night time snacking but tries to find alternatives. He acknowledges that he has food addiction and is working on this. He had an EGD last spring, increased his PPI but didn't help. Will switch him to protonix to see ifthat is more effective. He has occasional burning. He continues to have sharp, intermittent left shaniqua umbilical pain, no relationship to eating, intermittent, no specific triggers, last a few seconds to a few minutes up to daily to a few times a week, resolves spontaneously. Benefits since surgery: is happy with weight loss, he has lost 100 lbs, was over 400 prior to surgery Future goals: Wants weight to lose more, wishes he had been more restrictive early on, goal weight is 260 Bowel regimen: alternates constipation, diarrhea, doesn't take anything for it NSAID use: rare Dietary history/ exercise/ activity level: See dietitian note. Review of Systems (negative if left blank): Constitutional: [x] fatigue [] pica []restless leg Neurologic: []paresthesias [] memory loss CV: [] treatment for hypertension or taking antihypertensive medication [] treatment for hyperlipidemia Pulmonary: [] sleep apnea symptoms [] treatment for AUSTIN- sleeps 5-6 during a normal day, 3 days a week 2-3 hours a night, due to schedule with kids and work- he was retested for sleep apnea, has resolved GI: []GERD []dysphagia [] dumping [x] abdominal pain-continues to have intermittent shaniqua umbilical pain [] hernia [] nausea/vomiting [] blood in stool [x] chronic diarrhea/ constipation : [] ED []hesitancy []incontinence, occasional burning since cathed in the hospital Skin: [] redundant skin [] skinfold rashes, fissure on side of her mouth Heme/Lymph: []excessive bruising [] blood donor in past year Psychiatric [x] mental health concerns Other: Employment/social: 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 Has 5 kids Health-related habits: Tobacco: none since last February Alcohol: about twice a month drinks several bears up to 8-10 Objective: General: Konstantin is a pleasant, engaged, appropriat, overweight 38 y.o. year-old male appears statedage, NAD Heart: S1S2 distinct, no extra sounds or murmurs, RRR Lungs: Clear all lobes A&P, effort minimal, pattern regular Abdomen: soft, non-tender, no masses, no rebound, +BS. Abdominal trocar sites pale lines, no induration, no erythema Grade 1 abominal pannus She has cracks on side of her mouth at the crease on the right side of her mouth Extremities: No LE edema, pulses present Vital signs: BP 126/72 Pulse 70 Wt (!) 137.9 kg (304 lb) SpO2 99% BMI 42.40 kg/m?? Today's labs: Recent Results (from the past 72 hour(s)) TSH Result Value Ref Range TSH 1.81 0.27 - 4.20 mcIU/mL Folate, serum Result Value Ref Range Folate Lvl 12.7 4.8 - 24.2 ng/mL Vitamin B12 Result Value Ref Range Vitamin B-12 1,223 232 - 1,245 pg/mL Vitamin D, 25-Hydroxy Result Value Ref Range 25-OH Vit D Total 30 30 - 100 ng/mL Ferritin Result Value Ref Range Ferritin 86 30 - 400 ng/mL Iron and TIBC Result Value Ref Range Iron 93 45 - 160 mcg/dL TIBC 318 250 - 450 mcg/dL Iron Saturation 29 20 - 50 % Hemoglobin A1c Result Value Ref Range Hemoglobin A1C 5.6 4.3 - 5.6 % Est Avg Gluc 114 mg/dL Prealbumin Result Value Ref Range Prealbumin 25 20 - 40 mg/dL Comprehensive metabolic panel (non-fasting) Result Value Ref Range Glucose Lvl 91 65 - 199 mg/dL BUN 17 10 - 20 mg/dL Creatinine 0.94 0.80 - 1.50 mg/dL Sodium 139 135 - 145 mmol/L Potassium 4.3 3.5 - 5.0 mmol/L Chloride 99 98 - 107 mmol/L CO2 29 22 - 31 mmol/L Anion Gap 11 5 - 15 mmol/L Calcium 9.7 8.5 - 10.5 mg/dL Total Protein 7.3 6.1 - 8.0 gm/dL Albumin 4.4 3.2 - 5.2 gm/dL AST 28 0 - 39 unit/L ALT 35 0 - 55 unit/L Alk Phos 77 40 - 120 unit/L Total Bilirubin 0.4 0.2 - 1.3 mg/dL eGFR 104 >=60 mL/min/1.73 m?? eGFR 120 >=60 mL/min/1.73 m?? Hemogram Result Value Ref Range WBC 6.8 4.0 - 9.5 x10(3)/mcL RBC 4.75 4.58 - 5.54 x10(6)/mcL Hemoglobin 14.3 13.7 - 16.5 gm/dL Hematocrit 43.4 40.5 - 48.5 % MCV 91.4 82.9 - 93.1 fL MCH 30.1 27.5 - 32.1 pg MCHC 32.9 32.0 - 35.7 gm/dL Platelets 258 145 - 357 x10(3)/mcL RDWSD 39.5 36.0 - 45.0 fL RDWCV 11.8 11.4 - 13.8 % MPV 9.9 7.6 - 12.9 fL nRBC % Auto 0.0 % nRBC Abs Auto 0.000 0.000 - 0.000 x10(3)/mcL reviewed, continue current bariatric supplements Assessment: S/P RNY , with loss of 45% of excess body weight. Encounter Diagnoses Name ??? Disorder of iron metabolism Level stable continue current supplements ??? Status post bariatric surgery Has been struggling with weight loss maintenance over the past year, he feels he is on track now, would like to get to 260lbs ??? Intestinal malabsorption, unspecified type ??? Gastroesophageal reflux disease, esophagitis presence not specified Will switch to protonix, does not feel increased omeprazole made a difference in his symptoms ??? Depression, unspecified depression type Currently feels well controlled, in regular counseling individually and with his ??? Iron deficiency anemia, unspecified iron deficiency anemia type Continue current supplements, level is stable ??? Abdominal pain, periumbilical CT ordered to evaluate for possible internal hernia Plan: ?? Konstantin was congratulated on his ongoing healthy lifestyle efforts ?? E- medical record since last BSP visit reviewed ?? Primary care office contacted to obtain recent labwork for continuity of care and avoid unnecessary duplication of testing ?? Next BSP visit: 3 months per pt request ?? Next labwork: 6 months, sooner if indicated ?? Additional vitamin and mineral supplement recommendations (*in addition to usual post surgery supplements, as noted below): continue current supplements ?? dietary/ exercise recommendations per RD ?? Advised to call if develops unexplained abdominal pain, concerns or questions ?? Constipation strategies discussed. ?? provided with a July 2013 edition of [facility] [employer] [facility] bariatric surgery, a resource regarding supplements, diet, recommendations for patients > 1 year post-operatively He was provided with a Bariatric Program Summary report which included the above recommendations, as well as information on vitamin and mineral supplementation, fluids, exercise and support group meetings. He has had an opportunity to have all his questions answered and is in agreement with the plan of care. Konstantin was advised of lab results via [facility] per patient request. RECOMMENDED BARIATRIC SURGERY PROGRAM POSTOPERATIVE FOLLOW-UP: Follow up: done at 4, 8,12 and 18 and 24 months, and yearly thereafter. High risk patients are evaluated on a more frequent basis. *Supplement recommendations: Multivitamin with minerals twice a day, B12 500 mcg once a day, calcium citrate 600 mg/400 units vitamin D twice a day, iron (ferrous fumarate, polysaccharide iron taken with vitamin C 250 mg once a day) for menstruating females or those with GAYLE. Labwork: Hemogram, ferritin, iron (transferrin) saturation, iron, folate, Vitamins B1, B12, D (25 hydroxy only), Intact PTH and comprehensive metabolic profile at 4, 12 and 24 months, and yearly. Prealbumin is done at 4 and 12 months and PRN. If labwork is done by the primary acute care certified nursing assistant: pleasesend a copy to the Bariatric Surgery Program, General Surgery Clinic, [facility], Questions regarding [facility] Bariatric Surgery Program patients: please call the Bariatric Surgery Program at [phone] documented in this encounter Plan of Treatment Not on file documented as of this encounter Procedures Procedure Name Priority Date/Time Associated Diagnosis Comments HEMOGRAM Routine 02/05/2019 2:32 PM EDT Disorder of iron metabolism Status post bariatric surgery Intestinal malabsorption, unspecified type Gastroesophageal reflux disease, esophagitis presence not specified Depression, unspecified depression type Iron deficiency anemia, unspecified iron deficiency anemia type VITAMIN B1, WHOLE BLOOD Routine 02/05/2019 2:32 PM EDT Disorder of iron metabolism Status post bariatric surgery Intestinal malabsorption, unspecified type Gastroesophageal reflux disease, esophagitis presence not specified Depression, unspecified depression type Iron deficiency anemia, unspecified iron deficiency anemia type IRON AND TIBC Routine 02/05/2019 2:32 PM EDT Disorder of iron metabolism Status post bariatric surgery Intestinal malabsorption, unspecified type Gastroesophageal reflux disease, esophagitis presence not specified Depression, unspecified depression type Iron deficiency anemia, unspecified iron deficiency anemia type VITAMIN A Routine 02/05/2019 2:32 PM EDT Disorder of iron metabolism Status post bariatric surgery Intestinal malabsorption, unspecified type Gastroesophageal reflux disease, esophagitis presence not specified Depression, unspecified depression type Iron deficiency anemia, unspecified iron deficiency anemia type VITAMIN D, 25-HYDROXY Routine 02/05/2019 2:32 PM EDT Disorder of iron metabolism Status post bariatric surgery Intestinal malabsorption, unspecified type Gastroesophageal reflux disease, esophagitis presence not specified Depression, unspecified depression type Iron deficiency anemia, unspecified iron deficiency anemia type TSH Routine 02/05/2019 2:32 PM EDT Disorder of iron metabolism Status post bariatric surgery Intestinal malabsorption, unspecified type Gastroesophageal reflux disease, esophagitis presence not specified Depression, unspecified depression type Iron deficiency anemia, unspecified iron deficiency anemia type PREALBUMIN Routine 02/05/2019 2:32 PM EDT Disorder of iron metabolism Status post bariatric surgery Intestinal malabsorption, unspecified type Gastroesophageal reflux disease, esophagitis presence not specified Depression, unspecified depression type Iron deficiency anemia, unspecified iron deficiency anemia type HEMOGLOBIN A1C Routine 02/05/2019 2:32 PM EDT Disorder of iron metabolism Status post bariatric surgery Intestinal malabsorption, unspecified type Gastroesophageal reflux disease, esophagitis presence not specified Depression, unspecified depression type Iron deficiency anemia, unspecified iron deficiency anemia type FOLATE, SERUM Routine 02/05/2019 2:32 PM EDT Disorder of iron metabolism Status post bariatric surgery Intestinal malabsorption, unspecified type Gastroesophageal reflux disease, esophagitis presence not specified Depression, unspecified depression type Iron deficiency anemia, unspecified iron deficiency anemia type FERRITIN Routine 02/05/2019 2:32 PM EDT Disorder of iron metabolism Status post bariatric surgery Intestinal malabsorption, unspecified type Gastroesophageal reflux disease, esophagitis presence not specified Depression, unspecified depression type Iron deficiency anemia, unspecified iron deficiency anemia type VITAMIN B12 Routine 02/05/2019 2:32 PM EDT Disorder of iron metabolism Status post bariatric surgery Intestinal malabsorption, unspecified type Gastroesophageal reflux disease, esophagitis presence not specified Depression, unspecified depression type Iron deficiency anemia, unspecified iron deficiency anemia type COMPREHENSIVE METABOLIC PANEL Routine 02/05/2019 2:32 PM EDT Disorder of iron metabolism Status post bariatric surgery Intestinal malabsorption, unspecified type Gastroesophageal reflux disease, esophagitis presence not specified Depression, unspecified depression type Iron deficiency anemia, unspecified iron deficiency anemia type documented in this encounter Results * CT [...] contact the number below. Bonnie Mckeon APRN IMG CT ORDERABLES * TSH (02/05/2019 2:32 PM EDT) Thyroid Stimulating Hormone 1.81 0.27 - 4.20 mcIU/mL [facility] Blood specimen (specimen) 02/05/2019 2:32 PM EDT 02/05/2019 2:56 PM EDT Narrative Resulting Agency Comment Spec In Lab Bonnie Mckeon APRN CHEMISTRY ORDERABLES Performing Organization Address [facility]/ZIP Co de Phone Number [facility] [place] [address] * Folate, serum (02/05/2019 2:32 PM EDT) Folate 12.7 4.8 - 24.2 ng/mL [facility] Blood specimen (specimen) 02/05/2019 2:32 PM EDT 02/05/2019 2:56 PM EDT Narrative Resulting Agency Comment Spec In Lab Bonnie Mckeon MANAGER NURSING HOME CHEMISTRY ORDERABLES Performing Organization Address [facility] Co de Phone Number [facility] [place] [address] * Vitamin B12 (02/05/2019 2:32 PM EDT) Vitamin B12 1,223 232 - 1,245 pg/mL [facility] Blood specimen (specimen) 02/05/2019 2:32 PM EDT 02/05/2019 2:56 PM EDT Narrative Resulting Agency Comment Spec In Lab Bonnie Mckeon APRN CHEMISTRY ORDERABLES Performing Organization Address [facility] Co de Phone Number [facility] [place] [address] * (ABNORMAL) Vitamin B1, whole blood (02/05/2019 2:32 PM EDT) Vit B1 Lvl Wb (JANUARY) 186(H) 70 - 180 nmol/L [facility] Comment: ADDITIONAL INFORMATION This test was developed and its performance characteristics determined by [facility] in a manner consistent with CLIA requirements. This test has not been cleared or approved by the U.S. Food and Drug Administration. Test Performed by: [facility] - [facility] [address], [place] [address] Blood specimen (specimen) 02/05/2019 2:32 PM EDT 02/06/2019 9:38 AM EDT Narrative Resulting Agency Comment Spec In Lab Bonnie Ventura Linda [facility] SEND OUT ORDERAB LES Performing Organization Address City/[facility]/ZIP Co de Phone Number [facility] [place] [address] * Vitamin D, 25-Hydroxy (02/05/2019 2:32 PM EDT) [facility] Vitamin D Total 25 OH 30 30 - 100 ng/mL [facility] Comment: Deficient <10 ng/mL Insufficient 10 to 29 ng/mL Sufficient 30 to 100 ng/mL Potential Intoxication >100 ng/mL According to the [place] National Osteoporosis Foundation, Vitamin D concentrations >30 ng/mL are sufficient to protect bone health. ??The National Kidney Foundation has similarly stated that patients with Vitamin D concentrations <30ng/mL should be considered to be insufficient or deficient. http://Pulse.io.Rentify/nkf-guidelines http://Revolights/nejm-VitD The ID[employer] iSYS Vitamin D Immunoassay detects both 25-OH Vitamin D2 and 25-OH Vitamin D3, but only a total Vitamin D concentration is reported. Blood specimen (specimen) 02/05/2019 2:32 PM EDT 02/06/2019 7:22 AM EDT Narrative Resulting Agency Comment Spec In Lab Bonnie Mckeon APRN CHEMISTRY ORDERABLES Performing Organization Address [facility]/ZIP Co de Phone Number [facility] [place] [address] * Vitamin A (02/05/2019 2:32 PM EDT) [facility] Vitamin A (JANUARY) 47.8 32.5 - 78.0 mcg/dL [facility] Comment: ADDITIONAL INFORMATION This test was developed and its performance characteristics determined by [facility] in a manner consistent with CLIA requirements. This test has not been cleared or approved by the U.S. Food and Drug Administration. Test Performed by: [facility] - [facility] [address] [place] [address] Blood specimen (specimen) 02/05/2019 2:32 PM EDT 02/06/2019 8:41 AM EDT Narrative Resulting Agency Comment Spec In Lab Bonnie Mckeon APRN LAB SEND OUT ORDERAB LES Performing Organization Address City/[facility]/ZIP Co de Phone Number [facility] [place] [address] * Ferritin (02/05/2019 2:32 PM EDT) Ferritin 86 30 - 400 ng/mL [facility] Comment: Pediatric reference ranges not [place] [facility] interpret with caution. Reference ranges for females greater than 50 years of age approach values for men, i.e., 30-400 ng/mL. Blood specimen (specimen) 02/05/2019 2:32 PM EDT 02/05/2019 2:56 PM EDT Narrative Resulting Agency Comment Spec In Lab Bonnie Mckeon APRN CHEMISTRY ORDERABLES Performing Organization Address City/[facility]/ZIP Co de Phone Number [facility] [place] [address] * Iron and TIBC (02/05/2019 2:32 PM EDT) Iron 93 45 - 160 mcg/dL [facility] TIBC 318 250 - 450 mcg/dL [facility] Iron Saturation 29 20 - 50 % [facility] Blood specimen (specimen) 02/05/2019 2:32 PM EDT 02/05/2019 2:56 PM EDT Narrative Resulting Agency Comment Spec In Lab Bonnie Mckeon MANAGER NURSING HOME CHEMISTRY ORDERABLES [facility] [place] [address] * Hemoglobin A1c (02/05/2019 2:32 PM EDT) Hemoglobin A1c 5.6 4.3 - 5.6 % [facility] Comment: Reference Range: 4.3 - 5.6% [...] Mellitus, Diabetes Care 2013; 36: Suppl. 1, S67-21 Estimated Average Glucose 114 mg/dL [facility] Comment: eAG equivalents for HbA1c percentages: [...] into estimated average glucose values. ??Diabetes Care 2008:31(8):1815-5163. Blood specimen (specimen) 02/05/2019 2:32 PM EDT 02/05/2019 2:56 PM EDT Narrative Resulting Agency Comment Spec In Lab Bonnie Mckeon APRN CHEMISTRY ORDERABLES Performing Organization Address [facility] Co de Phone Number [facility] [place] [address] * Prealbumin (02/05/2019 2:32 PM EDT) Prealbumin 25 20 - 40 mg/dL [facility] Comment: Prealbumin levels are generally lower in the pediatric population; adult concentrations are usually attained near puberty. Blood specimen (specimen) 02/05/2019 2:32 PM EDT 02/05/2019 2:56 PM EDT Narrative Resulting Agency Comment Spec In Lab Bonnie Mckeon MANAGER NURSING HOME CHEMISTRY ORDERABLES Performing Organization Address [facility] Co de Phone Number [facility] [place] [address] * Comprehensive metabolic panel (non-fasting) (02/05/2019 2:32 PM EDT) Glucose 91 65 - 199 mg/dL [facility] Comment:Diabetes: >=200 mg/d L plus symptoms Blood Urea Nitrogen 17 10 - 20 mg/dL [facility] Creatinine 0.94 0.80 - 1.50 mg/dL [facility] Sodium 139 135 - 145 mmol/L [facility] Potassium 4.3 3.5 - 5.0 mmol/L [facility] Comment: Please note: ??Patients with WBC >100,000 may have falsely elevated Potassium levels. ??For accurate Potassium quantification in these patients send serum separator tube (gold top) for subsequent determinations. ??Contact the Clinical Chemistry Laboratory if there are any questions. Chloride 99 98 - 107 mmol/L [facility] Carbon Dioxide 29 22 - 31 mmol/L [facility] Anion Gap 11 5 - 15 mmol/L [facility] Calcium 9.7 8.5 - 10.5 mg/dL [facility] Protein, Total 7.3 6.1 - 8.0 gm/dL [facility] Albumin 4.4 3.2 - 5.2 gm/dL [facility] Aspartate Aminotransferase 28 0 - 39 unit/L [facility] Alanine Aminotransferase 35 0 - 55 unit/L [facility] Alkaline Phosphatase 77 40 - 120 unit/L [facility] Bilirubin, Total 0.4 0.2 - 1.3 mg/dL [facility] Est Glomerular Filtration Rate 104 >=60 mL/min/1. 73 m?? [facility] Comment: The eGFR was calculated using the CKD-EPI equation. As with all creatinine based estimates of kidney function, eGFR values calculated with the CKD-EPI equation are not accurate in patients with acute kidney failure, extremes of body mass or the acutely ill. [email or web address]/[facility] eGFR 120 >=60 mL/min/1. 73 m?? [facility] Comment: The eGFR was calculated using the CKD-EPI equation. As with all creatinine based estimates of kidney function, eGFR values calculated with the CKD-EPI equation are not accurate in patients with acute kidney failure, extremes of body mass or the acutely ill. http://Revolights/DHnkf Blood specimen (specimen) 02/05/2019 2:32 PM EDT 02/05/2019 2:56 PM EDT Narrative Resulting Agency Comment Spec In Lab Bonnie Mckeon APRN CHEMISTRY ORDERABLES [facility] [place] [address] * Hemogram (02/05/2019 2:32 PM EDT) White Blood Cell 6.8 4.0 - 9.5 x10(3)/mcL [facility] Red Blood Cell 4.75 4.58 - 5.54 x10(6)/[facility] Hemoglobin 14.3 13.7 - 16.5 gm/dL [facility] Hematocrit 43.4 40.5 - 48.5 % [facility] Mean Cell Volume 91.4 82.9 - 93.1 fL [facility] Mean Cell Hemoglobin 30.1 27.5 - 32.1 pg [facility] Mean Cell Hemoglobin Concentration 32.9 32.0 - 35.7 gm/dL [facility] Platelet 258 145 - 357 x10(3)/[facility] RDW Standard Deviation 39.5 36.0 - 45.0 [facility] RDW coefficient of variation 11.8 11.4 - 13.8 % [facility] Mean Platelet Volume 9.9 7.6 - 12.9 [facility] NRBC% auto 0.0 % [facility] NRBC Absolute 0.000 0.000 - 0.000 x10(3)/[facility] Blood specimen (specimen) 02/05/2019 2:32 PM EDT 02/05/2019 2:56 PM EDT Narrative Resulting Agency Comment Spec In Lab Bonnie Mckeon APRN HEMATOLOGY ORDERABLE S Performing Organization Address City/State/[facility] Co de Phone Number [facility] [place] [address] documented in this encounter Visit Diagnoses Diagnosis Disorder of iron metabolism Other disorders of iron metabolism Status post bariatric surgery Bariatric surgery status Intestinal malabsorption, unspecified type Gastroesophageal reflux disease, esophagitis presence not specified Depression, unspecified depression type Iron deficiency anemia, unspecified iron deficiency anemia type Abdominal pain, periumbilical Abdominal pain, periumbilic Status post bariatric surgery Bariatric surgery status Abdominal pain, periumbilical Abdominal pain, periumbilic documented in this encounter Care Teams Commercial Property Administrator Relationship Specialty Start Date End Date Radhika Xiao APRN [address] [place] [address] PCP - General Family Medicine 03/28/16 documented as of this encounter
--- OUTSIDE RECORDS SUMMARY | 2024-05-25 13:06 | XMS_ITS | Encounter Summary ---
[facility] [place] [address] Care Team Providers Care Director Zone Name Role Phone Radhika Xiao GERALD Primary Care Provider Reason for Visit * Reason Comments Follow-up Encounter Details Date Type Department Care Team (Late st Contact Info) Description 11/30/2019 1:30 PM EDT Office [place] [phone] Dorys Rivers, PRODUCTION QUALITY ANALYST [facility] [place] [address] Cinthya Donaldson, AMANDA [facility] [place] [place] [address] History of prediabetes; History of hyperlipidemia; Post-resection malabsorption; Disorder of iron metabolism; Status post bariatric surgery; Gastroesophageal reflux disease without esophagitis; Vitamin D deficiency; Tobacco dependence Social History Tobacco Use Types Packs/Day Years [...] Mass Index 42.61 11/30/2019 1:22 PM EDT documented in this encounter Patient Instructions * Patient Instructions* Dorys Rivers T - 11/30/2019 1:30 PM EDT [facility] technical support assistant Afsaneh [phone] and Krissy [phone] Dietitians: [phone] Surgeons/ nurse practitioners: [phone] Nurse line: [phone] Keep up the great work Konstantin!! Testing: Labwork: Today. Go to [facility], which is 1 flight below the General Surgery Clinic (or anyDH lab including [facility] (open on Saturdays) Please note that you will always receive a letter with lab results and recommendations. Read the letter carefully and follow recommendations. The letter also contains information regarding your next lab draw. A copy of your lab tests and office visit today is sent to your primary customer care professional Next visit: May Routine visits are done at 4.8,12, 18 and 24 months after surgery, and yearly thereafter. Please call [phone] if you do not receive an appointment by 3-4 weeks prior to the expected visit. Medications: recommendations pending testing results Vitamins: further recommendations pending lab results The following vitamins are recommended: ??? Multivitamins with minerals twice daily- needs to be an under 50 multivitamin that contains iron. ??? Vitamin B12 1000 mcg by mouth once daily ??? Calcium citrate 500-600 mg with Vitamin D 400 units once daily (600 mg in AM and 600 mg in PM- 2 pills twice a day) (or 1 chewable twice a day) + foods high in calcium ??? Iron with Vitamin C, 50-66 mg once daily: dosing will be determined by lab results Nutrition recommendations: - Your Daily Goals: ?? 1,000-1,200 calories per day (300 calories per meal, 100 calories per snack, 1-2 snacks per day) ?? 60 grams of protein per day (20 grams per meal) ?? 48-64 oz of non-caloric and hydrating fluids per day (6-8, 8 oz cups) ?? Do not drink with meals- pushes food through more quickly, can cause upset stomach Activity: ??? Aim for 30 minutes of exercise [...] risk of alcohol dependence after bariatric surgery. f non-prescribed drugs and treet drugs is unsafe Anti-inflammatory medications such as Ibuprofen (Advil), Aleve (Naproxen), Excedrin, should be usedsparingly after gastric bypass, since they increase the risk of ulcer and bleeding. Potential lifetime risks of gastric bypass include risk of ulcer, which is increased with alcohol and antiinflammatory medications and internal hernia (less than 5%), which may be increased with higher than predicted weight loss Call us: ??? If you have concerns. ??? If you have unexplained abdominal pain. ??? if you see blood in your stool or vomit blood ??? If you have prolonged vomiting Post Surgery Support Group: Our post surgery support group meets at [facility]- no registration required 1. on the first Saturday of every month from 1:00 PM-2:00 PM 2. On the saturday of the month from 4:30 PM to 5:30 PM Nutrition and Activity apps- Baritastic, My Fitness Pal, Lose It, My Plate Internet resources: www.AndroBioSys wwwYatango www.Cardio3 BioSciences www.The Social Coin SL.DGSE/blog [facility] facebook page: [email or web address]AH[facility]ariatricSurgery Books & Magazines: - Recipes for Life After Weight Loss Surgery by Nelda Wahl - Shrink Yourself by Dr Aleksandr Arriaza - Eating Well - www.Alkymos.com - Cooking Light- www.cookinglight.DGSE Anxiety: The Happiness Trap by Sascha Bañuelos The Mindfulness and acceptance workbook for anxiety By Neftali Nagel. Mindful eating: What are you Hungry For? By Adal Gonzalez The Mindful Diet by Bre Maza and the [facility] group. Emotional eating: End Emotional Eating by Arabella Kelley Calming the Emotional Storm Kailyn Arias documented in this encounter Progress Notes * Dorys Rivers - 11/30/2019 1:30 PM EDT Reason for visit: Follow up S/P laparoscopic Anabelle-en-Y gastric bypass by Dr. Thomas on 05/16/16. ? Complications summary: Early None Late None ? Visits summary: Compliance with [facility] follow up: good Attendance at [facility] post-operative graduate support group meetings: none Pre-op 03/28/16 Wt (lbs) 408 BMI 57.3 Visit #2 WT: 04/04/16: 403# HT: 5'10.75 Intro: 06/17/2015 ? Post-op ? %EBW lost Supplement compliance Labwork 06/06/2016 361 50.72 19.1 -[place] 1 BID -Fe SO4 325 mg qd --Vitamin C 500 mg qd - ca cit w/vit D 1 chew BID -B12 SL 500 mcg qd ?08/31/2016 ??316 ??44.5 ??37.6 ??Good. -MVI 1 tab qd -BA Ca Cit 1 chew BID -B12 SL 500 mcg qd -Ferrous Sulfate 325 mg qd w/vit C 500 mg qd 08/31: Hg 13.6 Hct 40.7 [id number] iron 29 sat 11% B12 1820 Nl B1 fol CMP PTH 55 D 27 prealbumin 17 A1c 5.4 12/26/16 285 40.03 53 -MVI 1 tab qd -BA Ca Citrate 1 chew BID -B12 SL 500 mcg qd -Fe [id number] mg w/vit C 500 mg BID 12/28: [...] 37%. Nl CMP D 33 prealbumin 22 11/20/17 [address] 37.[address] note 07/11/18 289 40.[address] note 02/05/19 [address] note 11/30/19 305 42 45 Mens multi BID No calcium B12 1000 QD Iron with C QD D3 2 pills /day ?code 11/29: Hg 13.7 Hct 45.2 ferritin 91 iron 66 sat 20% B12 1190 folate >18.9 Nl CMP TC 172 tg 108 HDL 45 LDL 105 PTH 54 D 37 ? Screening/other: Date?? Evaluation?? Results?? 2019 Primary care ? 01/09/18 EGD Esophageal mucosal changes ??suspicious for short-segment Valentine's esophagus.Erythematous mucosa in the cardia. Anabelle-en-Y gastrojejunostomy with ??gastrojejunal anastomosis??characterized by healthy appearing ??mucosa. Path Esophagus, ??biopsy Squamocolumnar (cardia-type) junctional mucosa with chronic and focal active inflammation. no evidence of intestinal metaplasia. stomach, ??biopsy: Body/fundic-type mucosa, negative Never?? DEXA? Problem List/ Updated at today's visit ??? Preoperative Class III obesity, S/P gastric bypass ??? History of prediabetes: resolved, HbA1C is 5.4 at today's check ??? Hyperlipidemia: today's check: improved, today's check: TC 172 tg 108 HDL 45 LDL 105 - untreated prior to surgery.on 11/30/15: TC 189 HDL 40 LDL 136 tg 89 ??? GERD: asymptomatic ??? Obstructive sleep apnea/ daytime somnolence: Sleeps well off CPAP. - Stopped CPAP post surgery, was intolerant had repeat PSG at [facility] in April - PSG 03/29/15 at wt 386#, BMI: 53.86: AHI: 6.5/hr; RDI: 13.3/hr; REM related AHI: 9.3/hr; REM related RDI: 18.7/hr; Sa02 kelsey: 85% on RA 919 consecutive minutes were spent on oxygen saturation < 88%); arousal index: 8/hr; PLM index: 17/hr; PLM arousal index: 0.5/hr. ??? Musculoskeletal Issues: improved weight weight loss, but persist, no treatment --Pain in right shoulder -- Bilateral knee pain --Low back pain --Plantar fasciitis of R foot ??? Iron deficiency anemia, onset preoperatively: resolved, normal check today --Colonoscopy 04/04/16: the entire colon normal including terminal ileum. 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 Psychosocial issues: stable on sertraline - depression ??? Tobacco dependence:trying to quit again, smoking 1 pack every 3 days, has quit cold turkey in past. His smokes as well. - restarted smoking a few months post surgery ??? Allergic rhinitis ??? Acrochordon Past Surgical History: Procedure Laterality Date ??? PRO COLONOSCOPY, DIAGNOSTIC N/A 04/04/2016 COLONOSCOPY, DIAGNOSTIC performed by Julia Ashraf MD at [facility] ENDOSCOPY ??? PRO LAP GASTRIC BYPASS/ANABELLE-EN-Y N/A 05/16/2016 @LAPAROSCOPIC GASTROPLASTY, performed by Juan Thomas MD at [facility] MAIN OR ??? PRO LAP, CHOLECYSTECTOMY N/A 05/14/2019 LAPAROSCOPIC CHOLECYSTECTOMY (WRVU 10.47) performed by Juan Thomas MD at [facility] MAIN OR ??? PRO LAP, DIAGNOSTIC ABDOMEN N/A 05/14/2019 LAPAROSCOPY, DIAGNOSTIC, ABDOMEN (WRVU 5.14) performed by Juan Thomas MD at [facility] MAIN OR ??? PRO LAP, HERNIA REPAIR PROC, UNLIST N/A 05/14/2019 LAPAROSCOPIC INTERNAL HERNIA REPAIR (WRVU *) performed by Juan Thomas MD at [facility] MAIN OR ??? PRO UPPER GI ENDOSCOPY, BIOPSY N/A 04/04/2016 UPPER GASTROINTESTINAL ENDOSCOPY,WITH BIOPSY SINGLE OR MULTIPLE performed by Julia Ashraf MD at [facility] ENDOSCOPY ??? PRO UPPER GI ENDOSCOPY, BIOPSY N/A 01/09/2018 EGD WITH BIOPSY (WRVU 2.49) performed by Ramón Minaya MD at [facility] ENDOSCOPY ??? PRO UPPER GI ENDOSCOPY, DIAGNOSTIC N/A 04/04/2016 EGD, UPPER GI ENDOSCOPY performed by Julia Ashraf MD at [facility] ENDOSCOPY ??? PRO UPPER GI ENDOSCOPY, DIAGNOSTIC N/A 05/16/2016 ENDOSCOPY, UPPER GI, DIAGNOSTIC, WITH OR WITHOUT SPECIMENS [facility] ??? PRO UPPER GI ENDOSCOPY, DIAGNOSTIC N/A 05/14/2019 EGD, UPPER GI ENDOSCOPY performed by Juan Thomas MD at [facility] MAIN OR Allergies Allergen Reactions ??? Other [Unclassified Drug] Itching Erythromycin opthalmic drops Medications 11/30/19 1409 Medication Sig Taking? cyanocobalamin, Vitamin B-12, (Vitamin B-12) 1,000 mcg Tablet Take 1,000 mcg by mouth daily. Yes sertraline HCl (SERTRALINE ORAL) Take 200 mg by mouth daily. Yes pantoprazole (PROTONIX) 40 mg Tablet, Delayed Release (E.C.) Take 1 tablet by mouth daily. Yes cholecalciferol, Vitamin D3, (CHOLECALCIFEROL, VITAMIN D3,) 2,000 unit Capsule Take 2,000 Units by mouth daily. Yes ferrous sulfate 325 mg (65 mg iron) Tablet Take 325 mg by mouth daily (with breakfast). In conjunction with Vitamin C 500 mg qd. Yes ascorbic acid, vitamin C, (VITAMIN C) 500 mg Tablet Take 500 mg by mouth daily. Yes MULTIVIT &MINERALS/FERROUS FUM (MULTI VITAMIN ORAL) Take 2 tablets by mouth daily. Yes cyclobenzaprine (FLEXERIL) 10 mg Tablet Take 10 mg by mouth 3 times daily as needed for Muscle spasms. Potential Bariatric Surgery Complications/ occurrences since last visit Yes No Bariatric surgery related visits to emergency department or other unplanned visit to a health care facility x Nephrolithiasis or atraumatic fracture since x Changes to health/ evaluations/ social history since last visit: as per updated problem list and e-DH He had a diagnostic laparoscopy and cholecystectomy on 05/14/19 to evaluate chronic abdominal pain..An internal hernia was not found. Subjective. Patient concerns at today's visit: Konstantin returns for every 6 month follow up at almost 4 years post gastric bypass. His weight has been stable since his las visit 6 months ago. Dietary and physical activity history: As per RD note. Benefits since surgery: feels better Goals: avoid weight regain Bowel regimen: daily BM NSAID use: none Review of Systems (negative if left blank): Constitutional: [] fatigue [] pica [] restless leg [] hair loss Neurologic: [x] Paresthesias occasional in hand, ? 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 General Appearance: 39 y.o. year-old male alert, interactive, no distress Lung: clear to auscultation bilaterally Heart: regular rate and rhythm Abdomen: soft non tender to palpation in all quadrants Extremities: no edema Vital signs: BP 116/65 Pulse 72 Temp 36.6 ??C (97.9 ??F) (Oral) Resp 16 Ht 180.3 cm (5' 10.98) Wt (!) 138.5 kg (305 lb 6.4 oz) SpO2 100% BMI 42.61 kg/m?? Today's lab data: Resulted Orders Folate, serum Result Value Ref Range Folate Lvl 18.9 4.8 - 24.2 ng/mL Vitamin B12 Result Value Ref Range Vitamin B-12 1,140 232 - 1,245 pg/mL Vitamin D, 25-Hydroxy Result Value Ref Range 25-OH Vit D Total 37 30 - 100 ng/mL PTH Result Value Ref Range PTH 54 15 - 65 pg/mL Ferritin Result Value Ref Range Ferritin 91 30 - 400 ng/mL Iron and TIBC Result Value Ref Range Iron 66 45 - 160 mcg/dL TIBC 333 250 - 450 mcg/dL Iron Saturation 20 20 - 50 % Hemoglobin A1c Result Value Ref Range Hemoglobin A1C 5.4 4.3 - 5.6 % Est Avg Gluc 109 mg/dL Lipid Panel (Reflex Direct LDL) Result Value Ref Range Chol, Total 172 mg/dL Triglycerides 108 mg/dL HDL 45 mg/dL LDL Cholesterol 105 mg/dL Chol/HDL Ratio 3.8 ratio Lipid Interpretation See Note Comprehensive metabolic panel (non-fasting) Result Value Ref Range Glucose Lvl 94 65 - 199 mg/dL BUN 16 10 - 20 mg/dL Creatinine 0.86 0.80 - 1.50 mg/dL Sodium 140 135 - 145 mmol/L Potassium 4.3 3.5 - 5.0 mmol/L Chloride 100 98 - 107 mmol/L CO2 29 22 - 31 mmol/L Anion Gap 11 5 - 15 mmol/L Calcium 9.5 8.5 - 10.5 mg/dL Total Protein 7.2 6.1 - 8.0 gm/dL Albumin 4.6 3.2 - 5.2 gm/dL AST 31 0 - 39 unit/L ALT 35 0 - 55 unit/L Alk Phos 84 40 - 130 unit/L Total Bilirubin 0.2 0.2 - 1.3 mg/dL eGFR 111 >=60 mL/min/1.73 m?? eGFR 128 >=60 mL/min/1.73 m?? Hemogram Result Value Ref Range WBC 5.5 4.0 - 9.5 x10(3)/mcL RBC 4.53 (L) 4.58 - 5.54 x10(6)/mcL Hemoglobin 13.7 13.7 - 16.5 gm/dL Hematocrit 42.5 40.5 - 48.5 % MCV 93.8 (H) 82.9 - 93.1 fL MCH 30.2 27.5 - 32.1 pg MCHC 32.2 32.0 - 35.7 gm/dL Platelets 235 145 - 357 x10(3)/mcL RDWSD 40.9 36.0 - 45.0 fL RDWCV 11.8 11.4 - 13.8 % MPV 10.3 7.6 - 12.9 fL nRBC % Auto 0.0 % nRBC Abs Auto 0.000 0.000 - 0.000 x10(3)/mcL Assessment: Stable S/P gastric bypass, with loss of 45% of excess body weight. Ongoing nicotine use Plan: ?? Konstantin's healthy lifestyle efforts were acknowledged. Dietary/ exercise recommendations: as per Minh HASKINS ?? E-DH medical record since last BSP visit reviewed ?? Tobacco use: he was encouraged to consider smoking cessation. He was offered a visit today with our smoking cessation team and a packet of information, which he declined. He is aware that smoking increases his risk of anastomotic ulcer. Recommend Omeprazole 20 mg daily to decrease ulcer risk. ?? He was given a note per his request to be able to work overtime ?? Next BSP visit: 6 months, per his request would like to continue every 6 month follow up to helpstay up on track ?? Next labwork: 6 months ?? Vitamin and mineral supplement recommendations: check dose of vitamin D, will recommend increasing dose for goal vitamin D>40. Check if current multivitamin contains iron, if not, switch to multivitamin with iron twice a day and discontinue iron. Consider taking calcium citrate with vitamin D, at least 1 dose per day. Continue vitamin B12 1000 mcg daily. ?? Advised to call if develops unexplained abdominal pain, concerns or questions. Risks specific tobariatric procedure discussed ?? Konstantin was advised of lab results via e-DH and mail. He was provided with a Bariatric Program Summary report which included the above recommendations, as well as information on vitamin and mineral supplementation, fluids, exercise and support group meetings. He has had an opportunity to have all his questions answered and is in agreement with the plan of care. RECOMMENDED BARIATRIC SURGERY PROGRAM POSTOPERATIVE FOLLOW-UP: Follow [...] If labwork is done by the primary customer care professional: pleasefax a copy to the Bariatric Surgery Program, General Surgery Clinic, [facility], ), Questions regarding [facility] Bariatric Surgery Program patients: please call the Bariatric Surgery Program at [phone] documented in this encounter Plan of Treatment Not on file documented as of this encounter Procedures Procedure Name Priority Date/Time Associated Diagnosis Comments HC PARATHYROID HORMONE(PTH INTACT Routine 11/30/2019 3:06 PM EDT Post-resection malabsorption Status post bariatric surgery Vitamin D deficiency HC HEMOGRAM Routine 11/30/2019 3:06 PM EDT Post-resection malabsorption Disorder of iron metabolism Status post bariatric surgery Gastroesophageal reflux disease without esophagitis HC IRON BINDING CAPACITY Routine 11/30/2019 3:06 PM EDT History of hyperlipidemia Post-resection malabsorption Disorder of iron metabolism Status post bariatric surgery HC VITAMIN D TOTAL-25 HYDROXY Routine 11/30/2019 3:06 PM EDT Post-resection malabsorption Disorder of iron metabolism Status post bariatric surgery Vitamin D deficiency HC HEMOGLOBIN A1C Routine 11/30/2019 3:0 6 PM EDT History of prediabetes History of hyperlipidemia Post-resection malabsorption Status post bariatric surgery HC VENIPUNCTURE Routine 11/30/2019 3:06 PM EDT Post-resection malabsorption Disorder of iron metabolism Status post bariatric surgery HC FERRITIN, SERUM Routine 11/30/2019 3: 06 PM EDT Post-resection malabsorption Disorder of iron metabolism Status post bariatric surgery HC VITAMIN B12 SERUM Routine 11/30/2019 3:06 PM EDT Post-resection malabsorption Disorder of iron metabolism Status post bariatric surgery LIPID PANEL (REFLEX DIRECT LDL) Routine 11/30/2019 3:06 PM EDT Post-resection malabsorption Status post bariatric surgery COMPREHENSIVE METABOLIC PANEL Routine 11/30/2019 3:06 PM EDT History of prediabetes History of hyperlipidemia Post-resection malabsorption Status post bariatric surgery Gastroesophageal reflux disease without esophagitis documented in this encounter Results * Folate, serum (11/30/2019 3:06 PM EDT) Folate 18.9 4.8 - 24.2 ng/mL [facility] Blood specimen (specimen) 11/30/2019 3:06 PM EDT 11/30/2019 3:19 PM EDT Narrative Resulting Agency Comment Spec In Lab Dorys Rivers PRODUCTION QUALITY ANALYST CHEMISTRY ORDERAB LES Performing Organization Address City/[facility]/ZIP Co de Phone Number [facility] [place] [address] * Vitamin B12 (11/30/2019 3:06 PM EDT) Vitamin B12 1,140 232 - 1,245 pg/mL [facility] Blood specimen (specimen) 11/30/2019 3:06 PM EDT 11/30/2019 3:19 PM EDT Narrative Resulting Agency Comment Spec In Lab Dorys Rivers PRODUCTION QUALITY ANALYST CHEMISTRY ORDERAB LES Performing Organization Address City/[facility]/ZIP Co de Phone Number [facility] [place] [address] * Vitamin D, 25-Hydroxy (11/30/2019 3:06 PM EDT) Vitamin D Total 25 OH 37 30 - 100 ng/mL [facility] Comment: As of 2019, 25-hydroxyvitamin D testing has moved from the [employer] to the [facility]. No substantial change in measured values is expected. Blood specimen (specimen) 11/30/2019 3:06 PM EDT 11/30/2019 3:19 PM EDT Narrative Resulting Agency Comment Spec In Lab Dorys Rivers PRODUCTION QUALITY ANALYST CHEMISTRY ORDERAB LES Performing Organization Address [facility] Co de Phone Number [facility] [place] [address] * PTH (11/30/2019 3:06 PM EDT) Parathyroid Hormone 54 15 - 65 pg/mL [facility] Blood specimen (specimen) 11/30/2019 3:06 PM EDT 11/30/2019 3:19 PM EDT Narrative Resulting Agency Comment Spec In Lab Dorys Rivers PRODUCTION QUALITY ANALYST CHEMISTRY ORDERAB LES Performing Organization Address [facility] Co de Phone Number [facility] [place] [address] * Ferritin (11/30/2019 3:06 PM EDT) Ferritin 91 30 - 400 ng/mL [facility] Comment: Pediatric reference ranges not verified at [facility], interpret with caution. Reference ranges for females greater than 50 years of age approach values for men, i.e., 30-400 ng/mL. Blood specimen (specimen) 11/30/2019 3:06 PM EDT 11/30/2019 3:19 PM EDT Narrative Resulting Agency Comment Spec In Lab Dorys Rivers PRODUCTION QUALITY ANALYST CHEMISTRY ORDERAB LES Performing Organization Address [facility] Co de Phone Number [facility] [place] [address] * Iron and TIBC (11/30/2019 3:06 PM EDT) Iron 66 45 - 160 mcg/dL [facility] TIBC 333 250 - 450 mcg/dL [facility] Iron Saturation 20 20 - 50 % [facility] Blood specimen (specimen) 11/30/2019 3:06 PM EDT 11/30/2019 3:19 PM EDT Narrative Resulting Agency Comment Spec In Lab Dorys T Silvestre DUARTE CHEMISTRY ORDERAB LES [facility] [place] [address] * Hemoglobin A1c (11/30/2019 3:06 PM EDT) Hemoglobin A1c 5.4 4.3 - 5.6 % [facility] Comment: Reference Range: [...] Mellitus, Diabetes Care 2013; 36: Suppl. 1, S67-88 Estimated Average Glucose 109 mg/dL [facility] Comment: eAG equivalents [...] on the ADA website. Jonn PONCE, Yessica Miller, Sara Maradiaga, et al. ??Translating the A1C assay into estimated average glucose values. ??Diabetes Care 2008:31(8):5541-1073. Blood specimen (specimen) 11/30/2019 3:06 PM EDT 11/30/2019 3:19 PM EDT Narrative Resulting Agency Comment Spec In Lab Dorys Rivers APRN CHEMISTRY ORDERAB LES Performing Organization Address City/State/[facility] Co de Phone Number [facility] [place] [address] * Lipid Panel (Reflex Direct LDL) (11/30/2019 3:06 PM EDT) Cholesterol, Total 172 mg/dL [facility] Comment: Lower Risk: <200 mg/dL Average Risk: 200-239 mg/dL Higher Risk: >is=758 mg/dL Triglyceride 108 mg/dL [facility] Comment: Average Risk/Lower Risk: <150 mg/dL Borderline High Risk: 150-199 mg/dL High Risk: 200-499 mg/dL Very High Risk: >qq=427 mg/dL HDL Cholesterol 45 mg/dL [facility] Comment: Males: ?? Higher Risk: <40 mg/dL Females: ?? HIgher Risk: <50 mg/dL LDL Cholesterol 105 mg/dL [facility] Comment: Lowest Risk: <100 mg/dL Lower Risk: 100-129 mg/dL Borderline High Risk: 130-159 mg/dL High Risk: 160-189 mg/dL Very High Risk: >ds=169 mg/dL Cholesterol/HDL Ratio 3.8 ratio [facility] Lipid Interpretation See Note [facility] Comment: Lipid management should be guided by a patient? s ASCVD risk, goals and preferences. ACC/AHA Guidelines recommend high intensity statin if clinical ASCVD or LDL greater than or equal to 190 mg/dL. [email or web address] Adults aged 40-75 with LDL 70-189 mg/dL should have their 10 year ASCVD risk estimated with the ACC/AHA ASCVD risk job cost estimator http://tools.acc.org/EEUPN-Slhc-Cfnnsyrld/ Statin should be discussed if risk greater [...] Agency Comment Spec In Lab Dorys Rivers APRN CHEMISTRY ORDERAB LES [facility] [place] [address] * Comprehensive metabolic panel (non-fasting) (11/30/2019 3:06 PM EDT) Glucose 94 65 - 199 mg/dL [facility] Comment:Diabetes: >=200 mg/d L plus symptoms Blood Urea Nitrogen 16 10 - 20 mg/dL [facility] Creatinine 0.86 0.80 - 1.50 mg/dL [facility] Sodium 140 135 - 145 mmol/L [facility] Potassium 4.3 3.5 - 5.0 mmol/L [facility] Comment: Please note: ??Patients with WBC >100,000 may have falsely elevated Potassium levels. ??For accurate Potassium quantification in these patients send serum separator tube (gold top) for subsequent determinations. ??Contact the Clinical Chemistry Laboratory if there are any questions. Chloride 100 98 - 107 mmol/L [facility] Carbon Dioxide 29 22 - 31 mmol/L [facility] Anion Gap 11 5 - 15 mmol/L [facility] Calcium 9.5 8.5 - 10.5 mg/dL [facility] Protein, Total 7.2 6.1 - 8.0 gm/dL [facility] Albumin 4.6 3.2 - 5.2 gm/dL [facility] Aspartate Aminotransferase 31 0 - 39 unit/L [facility] Alanine Aminotransferase 35 0 - 55 unit/L [facility] Alkaline Phosphatase 84 40 - 130 unit/L [facility] Bilirubin, Total 0.2 0.2 - 1.3 mg/dL [facility] Est Glomerular Filtration Rate 111 >=60 mL/min/1. 73 m?? [facility] Comment: The eGFR was calculated using the CKD-EPI equation. As with all creatinine based estimates of kidney function, eGFR values calculated with the CKD-EPI equation are not accurate in patients with acute kidney failure, extremes of body mass or the acutely ill. [email or web address] eGFR 128 >=60 mL/min/1. 73 m?? [facility] Comment: The eGFR was calculated using the CKD-EPI equation. As with all creatinine based estimates of kidney function, eGFR values calculated with the CKD-EPI equation are not accurate in patients with acute kidney failure, extremes of body mass or the acutely ill. [email or web address] Blood specimen (specimen) 11/30/2019 3:06 PM EDT 11/30/2019 3:19 PM EDT Narrative Resulting Agency Comment Spec In Lab Dorys Rivers APRN CHEMISTRY ORDERAB LES Performing Organization Address City/State/[facility] Co de Phone Number [facility] [place] [address] * (ABNORMAL) Hemogram (11/30/2019 3:06 PM EDT) White Blood Cell 5.5 4.0 - 9.5 x10(3)/mc L [facility] Red Blood Cell 4.53(L) 4.58 - 5.54 x10(6)/mc L [facility] Hemoglobin 13.7 13.7 - 16.5 gm/dL [facility] Hematocrit 42.5 40.5 - 48.5 % [facility] Mean Cell Volume 93.8(H) 82.9 - 93.1 fL [facility] Mean Cell Hemoglobin 30.2 27.5 - 32.1 pg [facility] Mean Cell Hemoglobin Concentration 32.2 32.0 - 35.7 gm/dL [facility] Platelet 235 145 - 357 x10(3)/mc L [facility] RDW Standard Deviation 40.9 36.0 - 45.0 fL [facility] RDW coefficient of variation 11.8 11.4 - 13.8 % [facility] Mean Platelet Volume 10.3 7.6 - 12.9 fL [facility] NRBC% auto 0.0 % [facility] NRBC Absolute 0.000 0.000 - 0.000 x10(3)/mc L [facility] Blood specimen (specimen) 11/30/2019 3:06 PM EDT 11/30/2019 3:19 PM EDT Narrative Resulting Agency Comment Spec In Lab Dorys Rivers APRN HEMATOLOGY ORDERA BLES Performing Organization Address City/State/[facility] Co de Phone Number [facility] [place] [address] documented in this encounter Visit Diagnoses Diagnosis History of prediabetes History of hyperlipidemia Personal history of other endocrine, metabolic, and immunity disorders 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
--- OUTSIDE RECORDS SUMMARY | 2024-05-25 13:06 | XMS_ITS | Encounter Summary ---
[place] [address] Care Team Providers Care Clip Loading Machine Feeder Name Role Phone Radhika Xiao APRN Primary Care Provider [phone] Encounter Details Date Type Department Care Team (Late st Contact Info) Description 02/15/2020 External Results [place] [id number] Social History Tobacco Use Types Packs/Day Years [...] Procedure Name Priority Date/Time Associated Diagnosis Comments LAB SCAN Routine 02/13/2020 documented in this encounter Results * Scan Doc: Lab (02/13/2020) Historical Provider MD TRAN MGR SCAN EX T ORDR/RSLT documented in this encounter Visit Diagnoses Not on filedocumented in this encounter Care Teams Clip Loading Machine Feeder Relationship Specialty Start Date End Date Radhika Xiao APRN [facility] [address] [place], [place] [address] PCP - General Family Medicine 03/28/16 documented as of this encounter
--- OUTSIDE RECORDS SUMMARY | 2024-05-25 13:06 | XMS_ITS | Encounter Summary ---
[place] [address] Care Team Providers Care Glue Sprayer Name Role Phone Radhika Xiao APRN Primary Care Provider Encounter Details Date Type Department Care Team (Late st Contact Info) Description 02/20/2022 Telephone [place] [phone] Afsaneh Hdz Social History Tobacco Use Types [...] * Telephone Encounter - Afsaneh Benites - 02/20/2022 9:26 AM EDT Left message to see if patient is interested in scheduling a annual follow-up visit. I asked them to give us a call back to set up an appointment and let them know that I will be sending them a letter via [facility] or mail. documented in this encounter Plan of Treatment Not on file documented as of this encounter Visit Diagnoses Not on filedocumented in this encounter Care Teams Glue Sprayer Relationship Specialty Start Date End Date Radhika Xiao, [employer]LECT[employer]ICEM[employer] [address] [place] [address] PCP - General Family Medicine 03/28/16 documented as of this encounter
--- OUTSIDE RECORDS SUMMARY | 2024-05-25 13:07 | XMS_ITS | Encounter Summary ---
[facility] [place] [address] Care Team Providers Care Melt House Centrifugal Operator Name Role Phone Radhika Xiao GERALD Primary Care Provider Encounter Details Date Type Department Care Team (Late st Contact Info) Description 06/06/2016 9:00 AM EDT Office Visit General Surgery at [facility] [place] [address] Rebeca Jiménez, BRAKESHOE REPAIRER [facility] [address] Arabella Watts, RD [facility] [place] [address] S/P gastric bypass; Prediabetes; Encounter for vitamin deficiency screening; Disorder of iron metabolism; Status post bariatric surgery; Obstructive sleep apnea Social History Tobacco Use Types Packs/Day Years Used Date Smoking Tobacco: Former Cigarettes 0.5 2 0 12/27/2013 - 12/28/2015 Smokeless Tobacco: Never Alcohol Use Standard Drinks/Week Comments Yes 0 (1 standard drink = 0.6 oz pur e alcohol) special occasions Sex and Gender Information Value Date Recorded Sex Assigned at Not on file Gender Identity Male 07/07/2018 3:10 PM EDT Sexual Orientation Not on file documented as of this encounter Last Filed Vital Signs Vital Sign Reading Time Taken Comments Blood Pressure 113/69 06/06/2016 8:48 AM EDT Pulse 67 06/06/2016 8:48 AM EDT Temperature - - Respiratory Rate 16 06/06/2016 8:48 AM EDT Oxygen Saturation 100% 06/06/2016 8:48 AM EDT Inhaled Oxygen Concentration - - Weight 163.8 kg (361 lb 1.6 oz) 06/06/2016 8:48 AM EDT Height 179.7 cm (5' 10.75) 06/06/2016 8:48 AM E DT Body Mass Index 50.72 06/06/2016 8:48 AM EDT documented in this encounter Patient Instructions * Patient Instructions* Rebeca Jiménez, GERALD - 06/06/2016 9:00 AM EDT Bariatric Surgery Program First Post-operative Follow up visit Contact information: [facility] Admin coordinator Jenny: [phone] Dietitian: [phone] Surgeons/ nurse practitioner: [phone] Nurse line: [phone] Your excess body weight lost: 19.1% Next follow up visit: at 4 months post-op. 08/27/16 @ 9AM and 9:30AM. Testing: Labwork will be done at your 4 month post op check. If you have labwork done by your doctor before that date, please have it sent to the Bariatric Surgery Program. Post surgery Medications: 1. Medication to prevent ulcer, as prescribed prior to surgery, needs to continue until you are at least 3 months post surgery, or as indicated by your primary care doctor. 2. If you have a gallbladder, continue to take Ursodiol 300 mg twice daily for a total of 6 months after surgery to prevent gallstones from forming, and to shrink any gallstones that may be present. Vitamin and mineral supplementation recommendations: The following vitamins are recommended: ??? Multivitamins with minerals twice daily- needs to be an under 50 multivitamin that contains iron. No senior multivitamins. (Or read the serving size if taking a Bariatric specific multivitamin such as procare). ??? Vitamin B12 500 mcg by mouth once daily ??? Calcium citrate 500 mg with Vitamin D 400 units twice daily (600 mg in AM and 600 mg in PM- 2 pills twice a day) (or 1 chewable twice a day) ??? Iron with Vitamin C, 50-66 mg once daily (take iron with vitamin C 250 mg to help with absorption) only if you have regular periods, iron deficiency or anemia. Nutrition recommendations: Begin Stage IV diet. Add in one new food at a time. Remember not to try foods for the first time atwork. Begin to add vegetables and fruits to your diet as tolerated. - Your Daily Goals: ??? 3 meals per day. Snacks if physically hungry or you need to increase your protein and/or calories (choose protein and/or fruit) ??? 60 grams protein per day (20 grams per meal) ??? 48-64 oz of non-caloric and hydrating fluids per day (6-8, 8 oz cups) - Limit intake of caffeine. Note: [employer] Double shot has 20 grams sugar. Limit calories of ready to drink protein drinks to 200 calories per 8 ounces. Activity: ??? Aim for 30 minutes of exercise daily, 5 days a week of both cardio and strength training exercises. Alcohol: should be used sparingly, no more than one drink per occasion. Alcohol is a source of empty calories and can cause ulcers and vitamin and mineral deficiencies. Studies have noted that there is an increased risk of alcohol dependence after surgery. control for women of child bearing age: is recommended for at least 18-24 months after surgery. Call us: ??? If you have concerns. ??? If you have unexplained abdominal pain. ??? if you see blood in your stool or vomit blood ??? If you have prolonged vomiting Post Surgery Support Group: Our post surgery support group meets on the first Saturday of every month from 1-2 PM at [facility] Internet resources: Www.ttwick www.Global New Media Www.OmniStrat.I-lighting Www.Choosemyplate.gov Www.WebtrekknessPal.com [facility] facebook page: https://www.facebook.com/[facility] CITY[facility]ariatric[facility]gery Bariatric surgery apps- [facility] Post-freddy Books: - Recipes for Life after Weight Loss Surgery by Nelda Wahl (2012) - Shrink Yourself by Dr Aleksandr Arriaza documented in this encounter Progress Notes * Rebeca Jiménez APRN - 06/06/2016 9:00 AM EDT Reason for visit: First post-operative check S/P laparoscopic Wild-en-Y gastric bypass by Dr. Thomas on 05/16/16. He was discharged on PO day 1 with uneventful post-operative course. Complications summary: Early none Late - Visits summary: Compliance with [facility] follow up: good Attendance at [facility] post-operative graduate support group meetings: none Pre-op 03/28/16 Wt (lbs) 408# BMI 57.3 Visit #2 WT: 04/04/16: 403# HT: 5'10.75 Intro: 06/17/2015 Post-op %EBW lost Supplement compliance Labwork 06/06/2016 361.2# 50.72 19.1 -[place] 1 tablet BID -Ferrous Sulfate 325 mg qd --Vitamin C 500 mg qd -Advantage w/vitamin D 1 chew BID -B12 SL 500 mcg qd Next visit with lab: 09/05/16 Diagnosis ??? Prediabetes ??? GAYLE (iron deficiency anemia): --Colonoscopy 04/04/16: the entire colon normal including terminal ileum. --Lab 03/30/16: CBC (H/H 12.5/39.3); ferritin 42; iron 42; TIBC 344; iron%12; B12 678; folate 11.7 --Lab 03/30/16: IgA 142; TTg IgA Ab <1.2 ??? Depression ??? History of tobacco abuse ??? Daytime somnolence ??? Gastroesophageal reflux: --EGD 04/04/16: LA Grade C esophagitis; normal area in the distal esophagus; normal stomach and duodenum. Bx: Duodenum: negative; stomach: negative; distal esophagus: mild chronic inflammation. There is no evidence of intestinal metaplasia. ??? Allergic rhinitis ??? Psychosocial Issues: --Pain in right shoulder --Low back pain --Plantar fasciitis of R foot ??? AUTSIN (obstructive sleep apnea): A. PSG 03/29/15 at 386#, BMI: 53.86: AHI: 6.5/hr; RDI: 13.3/hr; REM related AHI: 9.3/hr; REM related RDI: 18.7/hr; Sa02 kelsey: 85% on RA 919 consecutive minutes were spent on oxygen saturation <88%); arousal index: 8/hr; PLM index: 17/hr; PLM arousal index: 0.5/hr. B. Compliance Summary 02/05/16-03/05/16: 29/30 days; % days w/device usage 96.7%; average usage 5 hrs34 mins; %>4 hrs 93.3%; < 4 hrs 6.7% ??? HLD (hyperlipidemia): not treated ??? S/P gastric bypass 05/16/[address] Thomas for h/o class IV obesity ??? Acrochordon Past Surgical History Procedure Laterality Date ??? Pro upper gi endoscopy, diagnostic N/A 04/04/2016 EGD, UPPER GI ENDOSCOPY performed by Julia Ashraf MD at [facility] END[facility]COPY ??? Pro colonoscopy, diagnostic N/A 04/04/2016 COLONOSCOPY, DIAGNOSTIC performed by Julia Ashraf MD at [facility] ENDOSCOPY ??? Pro upper gi endoscopy, biopsy N/A 04/04/2016 UPPER GASTROINTESTINAL ENDOSCOPY,WITH BIOPSY SINGLE OR MULTIPLE performed by Julia Ashraf MD at [facility] ENDOSCOPY ??? Pro lap gastric bypass/wild-en-y N/A 05/16/2016 @LAPAROSCOPIC GASTROPLASTY, performed by Juan Thomas MD at [facility] MAIN OR ??? Pro upper gi endoscopy, diagnostic N/A 05/16/2016 ENDOSCOPY, UPPER GI, DIAGNOSTIC, WITH OR WITHOUT SPECIMENS [facility] Allergies: NKDA Medications: reviewed in edh ??? CYANOCOBALAMIN/COBAMAMIDE (B12 SL) daily ??? CA COMB NO.1/VIT D3/B-6/FA/B12 (VITAMIN D3, CALCIUM CIT-PHOS, ORAL) BID ??? ursodiol (ACTIGALL) 300 mg Capsule BID ??? ferrous sulfate 325 mg (65 mg iron) Tablet daily ??? ascorbic acid, vitamin C, (VITAMIN C) 500 mg Tablet daily ??? omeprazole (PRILOSEC) 40 mg Capsule, Delayed Release(E.C.) daily ??? buPROPion (WELLBUTRIN) 100 mg Tablet daily ? ? MULTIVIT &MINERALS/FERROUS FUM (MULTI VITAMIN ORAL) BID Screening/other: Date?? Evaluation?? Results?? 2016?? Primary care ? Never?? Colonoscopy? Never?? DEXA? Issues during hospitalization: uneventful course post operatively. Visits to emergency department or other unplanned visit to a health care facility since surgery? Denies Subjective: Patient concerns at today's visit: He denies any issues. He reports one episode of self induced vomiting after eating a Dorito[employer]. He states that it felt like the [employer]ito[employer] was stuck in his epigastric area. He denies nausea, chest pain or pressure. He started Ursodiol 300 mg BID on 05/30/16. He continues to take Omeprazole 40 mg qd. He denies any side effects. Wound issues: denies Bowel issues: denies. He reports having 1-2 formed bowel movements per day. Denies hematochezia or melena. Urinary tract issues: denies VTE prophylaxis: completed 10 day course of enoxaparin without incident. Post-discharge narcotic analgesic use: Denies taking any of the narcotic analgesic post operatively. Review of Systems (negative if left blank): Constitutional: [X] fatigue Neurologic: [ ] paresthesias Pulmonary: [ ] difficulty breathing or symptoms suggestive of VTE [] sleep apnea symptoms [X] treated for AUSTIN and continues to use his CPAP. He reports contacting [employer] regarding hismask since it no longer fits well and new mask ordered. He is also scheduled for follow up with [facility] in the next several months. Cardiac: [] chest pain, pressure or squeezing [X] HTN: denies history of HTN and not treated. GI: [X] GERD: asymptomatic GERD but taking Omeprazole 40 mg qd given EGD findings of LA grade C esophagitis and for ulcer prevention s/p RNY gastric bypass. []dysphagia [ ] dumping [ ] abdominal pain [ ] hernia [X] nausea/vomiting [ ] blood in stool [] chronic diarrhea [ ] constipation CORK TIPPER: [ ] LMP: [ ] control [ ] menorrhagia [ ] menopause Extremities: [ ] edema [ ] calf pain Psychiatric [ ] mental health concerns Health-related habits/other: Exercise/activity level: as per RD note Tobacco: denies Alcohol: denies Dietary history: See dietitian note from today's visit for complete dietary evaluation. Objective: General: 36 y.o. year-old male looks well. Heart: RRR, S1S2. No murmur, gallop or rub. Lungs: CTA without wheezing Abdomen: soft, non-tender. BS+. Abdominal trocar sites are well-healed, without evidence of hernia. Extremities: no edema Vital signs: BP 113/69;P 67;Ht 5'10.75;Wt 361.2#;BMI 50.72 Assessment: S/P RNY gastric bypass 05/16/16, with uneventful early post-operative course. Plan: ?? dietary and supplement recommendations per dietitian at today's visit. ?? Follow up with sleep center for management of AUSTIN ?? routine follow up with labwork at 4 months post-operatively ?? advised that alcohol is not recommended until 2 months post-operatively, and then should be usedin small amounts, since it is a source of empty calories and may cause ulcers, and interfere with vitamin and mineral absorption. ?? lifting restrictions: none ?? advised that Ursodiol is recommended for 6 months to reduce the risk of gallstone formation during the period of rapid weight loss. ?? advised to continue PPI therapy for another 2 months to decrease the risk of ulcer formation He was provided with a Bariatric Program Summary report which included the above written recommendations, as well as recommendations regarding vitamin and mineral supplementation, fluid intake and exercise. He is aware that he can call the Bariatric Surgery Program at any time with questions or concerns. RECOMMENDED BARIATRIC SURGERY PROGRAM POSTOPERATIVE FOLLOW-UP: Follow [...] GAYLE. Labwork: Hemogram, ferritin, iron (transferrin) saturation, iron., Vitamins: folate, B1, B12, D (25hydroxy only), Intact PTH and comprehensive metabolic profile at 4, 12, 18 and 24 months, and yearly. Prealbumin is done at 4 and 12 months and PRN. If labwork is done by the primary lpn care manager: please send a copy to the Bariatric Surgery Program, General Surgery Clinic, [facility], attention GERALD Cloud. Questions regarding [facility] Bariatric Surgery Program patients: please call Madhavi Jiménez APRN or Abiodun Rivers APRN at [phone]. E-mails: [email or web address] or [email or web address] * Arabella Watts, RD - 06/06/2016 9:00 AM EDT BSP Nutrition First Post-operative Follow up Pt seen with Rebeca Jiménez APRN. SUBJECTIVE: Topics Discussed/Patient Concerns: ?? None. Starting Stage IV today. ?? Plans to go back to work on June 17, 2016. OBJECTIVE: Date of Bariatric Surgery: 05/16/16 Type of Bariatric Surgery: Laparoscopic Wild-en-Y Gastric Bypass Weight History: Date Weight (lbs) HT BMI Comments 405# Highest Weight 07/08/15 392.8# Initial program weight 03/28/16 408# 70.75 57.3 1st pre-op visit EWL % Surgery 06/06/16 361.1# 19.1% 50.7 1 month post-op 4 months post-op [place] Body Weight (based on BMI of 25): 174# Excess Weight: 218# MEDICATIONS: Vitamin/Mineral Supplements (reported by patient): Supplement Type Brand/Form Dosage/Amount Frequency Comments Multivitamin Flintstones chewable 1 Once daily Calcium Bariatric Advantage 500 mg One daily In afternoon Vitamin B12 SL ? Once daily Iron 325 mg Once daily Hx of deficiency Vitamin C chewable Daily w/iron pill Tracking Intake: not so much. Plans to start using My Fitness Pal. He is making sure he's getting in his protein. Daily Oral Intake: Breakfast Scrambled egg and corned beef hash or cottage cheese or japanese yogurt AM Snack Lunch starkist tuna pack PM Snack Dinner Shrimp (10) , little bit of CHO HS Snack Occ. SF jello or SF pudding Protein/ estimated grams/day: 60 g/day Calories/ estimated/day: 400-500/day Hydrating fluids/ oz/ day: 16.9 FL 3 per day herrmann, V8, CL and milk Soda: None. ETOH: None. Caffeine: Starbucks 20 g protein drink - [facility] [employer] double shot (had it for the first time yesterday) Meals per day: 3/day Other: ?? Feels full/satisfied after eating: sometimes feels full. ?? Spends at least 20 minutes eating each meal: yes. ?? Vomiting/ regurgitation: self-induced vomiting after eating a Dorito ?? Nausea: None. ?? Constipation/diarrhea: None. BM 1-2 x per day Food Allergies/Intolerances: None. Exercise: walking daily - staying at home but being as active a possible (with kids, house chores).Wants to start jogging this week or next week. ASSESSMENT: Patient s/p bariatric surgery with 19.1 % EWL. Pt is doing well meeting protein and fluid needs. Heis tolerating the diet well and is starting the Stage IV diet today. Discussed dietary guidelines, fluid goals and vitamin and mineral supplement recommendations. Pt feels confident in his knowledge about the dietary guidelines. PLAN: ?? Evaluation by BRAKESHOE REPAIRER today. ?? Provided support/encouragement and reinforced importance of meeting nutritional goals. Rec. Limit intake of caffeine and to limit calories from RTD protein drinks to 200 calories per 8 oz. ?? Reviewed nutrition and vitamin and mineral supplement recommendations - rec. MVM twice daily [id number] mg calcium twice daily. ?? Written recommendations provided. Patient agreed with these and verbalized adequate understanding ?? follow up at 4 months post surgery with labwork. documented in this encounter Plan of Treatment Not on file documented as of this encounter Results * PTH (08/31/2016 8:06 AM EST) Parathyroid Hormone 55 15 - 65 pg/mL [facility] Blood specimen (specimen) 08/31/2016 8:06 AM EST 08/31/2016 8:12 AM EST Narrative Resulting Agency Comment Spec In Lab Juan Thomas MD CHEMISTRY ORDERABLES [facility] [place] [place] [address] * Folate, serum (08/31/2016 8:06 AM EST) Folate 10.9 4.8 - 24.2 ng/mL [facility] Blood specimen (specimen) 08/31/2016 8:06 AM EST 08/31/2016 8:12 AM EST Narrative Resulting Agency Comment Spec In Lab Juan Thomas MD CHEMISTRY ORDERABLES Performing Organization Address City/[facility]/ZIP Co de Phone Number [facility] [place] [place] [address] * (ABNORMAL) Vitamin B12 (08/31/2016 8:06 AM EST) Vitamin B12 1,820(H) 207 - 974 pg/mL [facility] Blood specimen (specimen) 08/31/2016 8:06 AM EST 08/31/2016 8:12 AM EST Narrative Resulting Agency Comment Spec In Lab Juan Thomas MD CHEMISTRY ORDERABLES Performing Organization Address City/[facility] Co de Phone Number [facility] [place] [place] [address] * (ABNORMAL) Vitamin D, 25-Hydroxy (08/31/2016 8:06 AM EST) Vitamin D Total 25 OH 27(L) 30 - 100 ng/mL [facility] Comment: Deficient <10 ng/mL Insufficient 10 to 29 ng/mL Sufficient 30 to 100 ng/mL Potential Intoxication >100 ng/mL According to the [place] National Osteoporosis Foundation, Vitamin D concentrations >30 ng/mL are sufficient to protect bone health. ??The National Kidney Foundation has similarly stated that patients with Vitamin D concentrations <30ng/mL should be considered to be insufficient or deficient. http://SoPost/DHMCnatlkidneyfoundation http://SoPost/DHMCVitD The IDS iSYS Vitamin D Immunoassay detects both 25-OH Vitamin D2 and 25-OH Vitamin D3, but only a total Vitamin D concentration is reported. Blood specimen (specimen) 08/31/2016 8:06 AM EST 08/31/2016 10:06 AM EST Narrative Resulting Agency Comment Spec In Lab Juan Thomas MD CHEMISTRY ORDERABLES Performing Organization Address [facility] Co de Phone Number [facility] [place] [place] [address] * Ferritin (08/31/2016 8:06 AM EST) Ferritin 112 30 - 400 ng/mL [facility] Comment: Pediatric reference ranges not verified at [facility], interpret with caution. Reference ranges for females greater than 50 years of age approach values for men, i.e., 30-400 ng/mL. Blood specimen (specimen) 08/31/2016 8:06 AM EST 08/31/2016 8:12 AM EST Narrative Resulting Agency Comment Spec In Lab Juan Thomas MD CHEMISTRY ORDERABLES Performing Organization Address [facility] Co de Phone Number [facility] [place] [address] * (ABNORMAL) Iron and TIBC (08/31/2016 8:06 AM EST) [facility] Iron 29(L) 45 - 160 mcg/dL [facility] TIBC 268 250 - 450 mcg/dL [facility] Iron Saturation 11(L) 20 - 50 % [facility] Blood specimen (specimen) 08/31/2016 8:06 AM EST 08/31/2016 8:12 AM EST Narrative Resulting Agency Comment Spec In Lab Juan Thomas MD CHEMISTRY ORDERABLES Performing Organization Address City/[facility] Co de Phone Number [facility] [place] [address] * Hemoglobin A1c (08/31/2016 8:06 AM EST) [facility] Signature Hemoglobin A1c 5.4 4.3 - 5.6 % [facility] Comment: Reference Range: 4.3 - [...] Mellitus, Diabetes Care 2013; 36: Suppl. 1, A16-34 Estimated Average Glucose 108 mg/dL [facility] Comment: eAG equivalents for HbA1c percentages: HbA1c(%) ?eAG(mg/dL) 6.0 ?126 6.5 ?140 7.0 ?154 7.5 ?169 8.0 ?183 8.5 ?197 9.0 ?212 9.5 ?226 10.0 ? 240 Limitations: The eAG calculation has not been validated on women, individuals below 18 years old and above 70 years old, and individuals with hemoglobinopathies. Additional resources are available on the ADA website: http://Attune RTD.com/DHMCadacalc Jonn PONCE, Yessica J, Sara R, et al. ??Translating the A1C assay into estimated average glucose values. ??Diabetes Care 2008:31(8):4683-7313. Blood specimen (specimen) 08/31/2016 8:06 AM EST 08/31/2016 8:12 AM EST Narrative Resulting Agency Comment Spec In Lab Juan Thomas MD CHEMISTRY ORDERABLES [facility] [place] [address] * (ABNORMAL) Prealbumin (08/31/2016 8:06 AM EST) Prealbumin 17(L) 20 - 40 mg/dL [facility] Comment: Prealbumin levels are generally lower in the pediatric population; adult concentrations are usually attained near puberty. Blood specimen (specimen) 08/31/2016 8:06 AM EST 08/31/2016 8:12 AM EST Narrative Resulting Agency Comment Spec In Lab Juan Thomas MD CHEMISTRY ORDERABLES [facility] [place] [address] * Comprehensive metabolic panel (non-fasting) (08/31/2016 8:06 AM EST) Glucose 93 65 - 199 mg/dL [facility] Comment:Diabetes: >=200 mg/d L plus symptoms Blood Urea Nitrogen 13 10 - 20 mg/dL [facility] Creatinine 0.90 0.80 - 1.50 mg/dL [facility] Comment: Please note that the pediatric reference intervals supplied above were not validated at [facility]. Results from pediatric patients should be interpreted in conjunction to the patient's age, height and muscle mass. Sodium 141 135 - 145 mmol/L [facility] Potassium 4.1 3.5 - 5.0 mmol/L [facility] Comment: Please note: ??Patients with WBC >100,000 may have falsely elevated Potassium levels. ??For accurate Potassium quantification in these patients send serum separator tube (gold top) for subsequent determinations. ??Contact the Clinical Chemistry Laboratory if there are any questions. Chloride 100 98 - 107 mmol/L [facility] Carbon Dioxide 27 22 - 31 mmol/L [facility] Anion Gap 14 5 - 15 mmol/L [facility] Calcium 9.2 8.5 - 10.5 mg/dL [facility] Protein, Total 7.0 6.1 - 8.0 gm/dL [facility] Albumin 4.3 3.2 - 5.2 gm/dL [facility] Aspartate Aminotransferase 17 0 - 39 unit/L [facility] Alanine Aminotransferase 18 0 - 55 unit/L [facility] Alkaline Phosphatase 96 40 - 120 unit/L [facility] Bilirubin, Total 0.4 0.2 - 1.3 mg/dL [facility] Bilirubin, Direct 0.1 0.0 - 0.3 mg/dL [facility] Est Glomerular Filtration Rate >60 >=60 [facility] Comment: This estimated GFR (eGFR) value was calculated using the MDRD equation which has been validated on patients between the ages of 18 and 70. The MDRD should not be used to assess kidney function in patients < 18 years of age or in patients with extremes of body mass, or in patients with acute kidney failure. This value should be multiplied by 1.2 for patients. For further information please copy and paste the following links into your internet browser. http://SoPost/DHnkdep http://SoPost/DHMCnkf Blood specimen (specimen) 08/31/2016 8:06 AM EST 08/31/2016 8:12 AM EST Narrative Resulting Agency Comment Spec In Lab Juan Thomas MD CHEMISTRY ORDERABLES Performing Organization Address City/State/[facility] Co de Phone Number [facility] [place] [phone] documented in this encounter Visit Diagnoses Diagnosis S/P gastric bypass Bariatric surgery status Prediabetes Other abnormal glucose Encounter for vitamin deficiency screening Screening for other and unspecified endocrine, nutritional, metabolic, and immunity disorders Disorder of iron metabolism Other disorders of iron metabolism Status post bariatric surgery Bariatric surgery status Obstructive sleep apnea Obstructive sleep apnea (adult) (pediatric) documented in this encounter Care Teams Melt House Centrifugal Operator Relationship Specialty Start Date End Date Radhika Xiao, GERALD [address] [place] [address] PCP - General Family Medicine 03/28/16 documented as of this encounter
--- OUTSIDE RECORDS SUMMARY | 2024-05-25 13:07 | XMS_ITS | Encounter Summary ---
[place] [address] Care Team Providers Care Methods Specialist Engineer Name Role Phone Radhika Xiao APRN Primary Care Provider [phone] Encounter Details Date Type Department Care Team (Late st Contact Info) Description 10/21/2017 Telephone [place] [phone] Evette Adler Social History Tobacco Use Types Packs/Day Years Used Date Smoking Tobacco: Every Day Cigarettes 0.5 2 Started: 12/27/2013; Last attempted to quit: 12/28/2015 Smokeless Tobacco: Never Comments:4 cigarettes a day Alcohol Use Standard Drinks/Week Comments Yes 0 (1 standard drink = 0.6 oz pur e alcohol) special occasions Sex and Gender Information Value Date Recorded Sex Assigned at Not on file Gender Identity Male 07/07/2018 3:10 PM EDT Sexual Orientation Not on file documented as of this encounter Miscellaneous Notes * Telephone Encounter - Evette Adler - 10/21/2017 11:14 AM EST LMOM for Mr. Wong to check in with him about his upcoming appointment with the bariatric program. I asked him to give me a call back to change his appointment. I told him that we can either switchhis appointment to our new nurse practitioner or move his appointment to another day. documented in this encounter Plan of Treatment Not on file documented as of this encounter Visit Diagnoses Not on filedocumented in this encounter Care Teams Methods Specialist Engineer Relationship Specialty Start Date End Date Radhika Xiao, SUPPORT STAFF [address] [facility] [place] [address] PCP - General Family Medicine 03/28/16 documented as of this encounter
--- OUTSIDE RECORDS SUMMARY | 2024-05-25 13:07 | XMS_ITS | Encounter Summary ---
[place] [address] Care Team Providers Care Technology Education Instructor Name Role Phone Radhika Xiao APRN Primary Care Provider [phone] Encounter Details Date Type Department Care Team (Late st Contact Info) Description 01/10/2017 Telephone [place] [phone] Evette Adler Social History Tobacco Use Types [...] * Telephone Encounter - Evette Adler - 01/10/2017 1:41 PM EDT LMOM for Mr. Hickey to schedule his next appt per the green recall sheet. I told him that I am going to schedule him 4 months out, but asked him to give me a call to confirm that date and time work for him. documented in this encounter Plan of Treatment Not on file documented as of this encounter Visit Diagnoses Not on filedocumented in this encounter Care Teams Technology Education Instructor Relationship Specialty Start Date End Date Radhika Xiao, GERALD [address] [facility] [address] PCP - General Family Medicine 03/28/16 documented as of this encounter
--- OUTSIDE RECORDS SUMMARY | 2024-05-25 13:07 | XMS_ITS | Encounter Summary ---
[place] [address] Care Team Providers Care Clinical Rehabilitation Aide Name Role Phone Radhika Xiao APRN Primary Care Provider Encounter Details Date Type Department Care Team (Latest Contact Info) Description 12/28/2016 11:40 AM EDT Laboratory Appointment Lab [address] [phone] Status post bariatric surgery; Intestinal malabsorption, unspecified type; Vitamin D deficiency; Iron deficiency anemia, unspecified iron deficiency anemia type Social History Tobacco Use Types Packs/Day Years [...] Procedure Name Priority Date/Time Associated Diagnosis Comments PTH Routine 12/28/2016 12:01 PM EDT Status post bariatric surgery Intestinal malabsorption, unspecified type Vitamin D deficiency HEMOGRAM Routine 12/28/2016 12:01 PM EDT Status post bariatric surgery Intestinal malabsorption, unspecified type Iron deficiency anemia, unspecified iron deficiency anemia type DIFFERENTIAL, AUTOMATED Routine 12/28/2016 12:01 PM EDT Status post bariatric surgery Intestinal malabsorption, unspecified type Iron deficiency anemia, unspecified iron deficiency anemia type VITAMIN B1, WHOLE BLOOD Routine 12/28/2016 12:01 PM EDT Status post bariatric surgery Intestinal malabsorption, unspecified type IRON AND TIBC Routine 12/28/2016 12:01 PM EDT Status post bariatric surgery Intestinal malabsorption, unspecified type Iron deficiency anemia, unspecified iron deficiency anemia type VITAMIN D, 25-HYDROXY Routine 12/28/2016 12:01 PM EDT Status post bariatric surgery Intestinal malabsorption, unspecified type Vitamin D deficiency CBC (WITH DIFF) Routine 12/28/2016 12:01 PM EDT Status post bariatric surgery Intestinal malabsorption, unspecified type Iron deficiency anemia, unspecified iron deficiency anemia type PREALBUMIN Routine 12/28/2016 12:01 PM EDT Status post bariatric surgery Intestinal malabsorption, unspecified type FOLATE, SERUM Routine 12/28/2016 12:01 PM EDT Status post bariatric surgery Intestinal malabsorption, unspecified type FERRITIN Routine 12/28/2016 12:01 PM EDT Status post bariatric surgery Intestinal malabsorption, unspecified type Iron deficiency anemia, unspecified iron deficiency anemia type VITAMIN B12 Routine 12/28/2016 12:01 PM EDT Status post bariatric surgery Intestinal malabsorption, unspecified type COMPREHENSIVE METABOLIC PANEL Routine 12/28/2016 12:01 PM EDT Status post bariatric surgery Intestinal malabsorption, unspecified type documented in this encounter Results * (ABNORMAL) Differential, Automated (12/28/2016 12:01 PM EDT) Neutrophil % 85.2 % [facility] Neutrophil Absolute 7.14(H) 1.70 - 6.10 x10(3)/mc L [facility] Lymph % 11.2 % [facility] Lymphocytes Abs 0.9 0.9 - 3.2 x10(3)/ L [facility] Monocyte % 2.9 % [facility] Monocyte Abs 0.2(L) 0.3 - 0.9 x10(3)/ L [facility] Eos % 0.1 % [facility] Eosinophils Abs 0.0 0.0 - 0.4 x10(3)/[facility] Basophil % 0.2 % [facility] Baso Absolute 0.0 0.0 - 0.1 x10(3)/[facility] Immature Gran % 0.40 % [facility] Comment: Immature granulocytes(IG's)percentage and absolute count will include metamyelocytes, myelocytes, and promyelocytes. Blood smears from CBCs yielding IG's will be scanned manually for concordance. If this scan disagrees with the automated IG or if promyelocytes are noted, a manual differential will be performed. Immature Gran Absolute 0.03 0.00 - 0.04 x10(3)/[facility] Blood specimen (specimen) 12/28/2016 12:01 PM EDT 12/28/2016 12:11 PM EDT Narrative Resulting Agency Comment Spec In Lab Juan Thomas MD HEMATOLOGY ORDERABLE S [facility] [place] [address] * Hemogram (12/28/2016 12:01 PM EDT) White Blood Cell 8.4 4.0 - 9.5 x10(3)/[facility] Red Blood Cell 4.76 4.58 - 5.54 x10(6)/[facility] Hemoglobin 14.7 13.7 - 16.5 gm/dL [facility] Hematocrit 43.6 40.5 - 48.5 % [facility] Mean Cell Volume 91.6 82.9 - 93.1 fL [facility] Mean Cell Hemoglobin 30.9 27.5 - 32.1 pg [facility] Mean Cell Hemoglobin Concentration 33.7 32.0 - 35.7 gm/dL [facility] Platelet 240 145 - 357 x10(3)/[facility] RDW Standard Deviation 40.7 36.0 - 45.0 fL [facility] RDW coefficient of variation 12.0 11.4 - 13.8 % [facility] Mean Platelet Volume 10.2 7.6 - 12.9 fL [facility] NRBC% auto 0.0 % [facility] NRBC Absolute 0.000 0.000 - 0.000 x10(3)/[facility] Blood specimen (specimen) 12/28/2016 12:01 PM EDT 12/28/2016 12:11 PM EDT Narrative Resulting Agency Comment Spec In Lab Juan Thomas MD HEMATOLOGY ORDERABLE S [facility] [place] [address] * (ABNORMAL) Vitamin B1, whole blood (12/28/2016 12:01 PM EDT) Vit B1 Lvl Wb (JANUARY) 194(H) 70 - 180 nmol/L [facility] Comment: ADDITIONAL INFORMATION This test was developed and its performance characteristics determined by [facility] in a manner consistent with CLIA requirements. This test has not been cleared or approved by the U.S. Food and Drug Administration. Test Performed by: [facility] - [address] [address] Blood specimen (specimen) 12/28/2016 12:01 PM EDT 12/28/2016 2:00 PM EDT Narrative Resulting Agency Comment Spec In Lab Juan Thomas MD LAB SEND OUT ORDERAB LES [facility] [place] [address] * Comprehensive metabolic panel (non-fasting) (12/28/2016 12:01 PM EDT) Glucose 109 65 - 199 mg/dL [facility] Comment:Diabetes: >=200 mg/d L plus symptoms Blood Urea Nitrogen 16 10 - 20 mg/dL [facility] Creatinine 0.87 0.80 - 1.50 mg/dL [facility] Comment: Please note that the pediatric reference intervals supplied above were not validated at [facility]. Results from pediatric patients should be interpreted in conjunction to the patient's age, height and muscle mass. Sodium 140 135 - 145 mmol/L [facility] Potassium 4.7 3.5 - 5.0 mmol/L [facility] Comment: Please note: ??Patients with WBC >100,000 may have falsely elevated Potassium levels. ??For accurate Potassium quantification in these patients send serum separator tube (gold top) for subsequent determinations. ??Contact the Clinical Chemistry Laboratory if there are any questions. Chloride 101 98 - 107 mmol/L [facility] Carbon Dioxide 27 22 - 31 mmol/L [facility] Anion Gap 12 5 - 15 mmol/L [facility] Calcium 9.8 8.5 - 10.5 mg/dL [facility] Protein, Total 7.5 6.1 - 8.0 gm/dL [facility] Albumin 4.7 3.2 - 5.2 gm/dL [facility] Aspartate Aminotransferase 15 0 - 39 unit/L [facility] Alanine Aminotransferase 20 0 - 55 unit/L [facility] Alkaline Phosphatase 98 40 - 120 unit/L [facility] Bilirubin, Total 0.4 0.2 - 1.3 mg/dL [facility] Bilirubin, Direct 0.1 0.0 - 0.3 mg/dL [facility] Est Glomerular Filtration Rate >60 >=60 [facility] Comment: This estimated GFR (eGFR) [...] the following links into your internet browser. [email or web address] Blood specimen (specimen) 12/28/2016 12:01 PM EDT 12/28/2016 12:11 PM EDT Narrative Resulting Agency Comment Spec In Lab Juan Thomas MD CHEMISTRY ORDERABLES Performing Organization Address [facility]/ZIP Co de Phone Number [facility] [place] [address] * Prealbumin (12/28/2016 12:01 PM EDT) Prealbumin 20 20 - 40 mg/dL [facility] Comment: Prealbumin levels are generally lower in the pediatric population; adult concentrations are usually attained near puberty. Blood specimen (specimen) 12/28/2016 12:01 PM EDT 12/28/2016 12:11 PM EDT Narrative Resulting Agency Comment Spec In Lab Juan Thomas MD CHEMISTRY ORDERABLES Performing Organization Address City/[facility]/ZIP Co de Phone Number [facility] [place] [address] * Iron and TIBC (12/28/2016 12:01 PM EDT) Iron 84 45 - 160 mcg/dL [facility] TIBC 300 250 - 450 mcg/dL [facility] Iron Saturation 28 20 - 50 % [facility] Blood specimen (specimen) 12/28/2016 12:01 PM EDT 12/28/2016 12:11 PM EDT Narrative Resulting Agency Comment Spec In Lab Juan Thomas MD CHEMISTRY ORDERABLES [facility] [place] [address] * Ferritin (12/28/2016 12:01 PM EDT) Ferritin 146 30 - 400 ng/mL [facility] Comment: Pediatric reference ranges not verified at [facility], interpret with caution. Reference ranges for females greater than 50 years of age approach values for men, i.e., 30-400 ng/mL. Blood specimen (specimen) 12/28/2016 12:01 PM EDT 12/28/2016 12:11 PM EDT Narrative Resulting Agency Comment Spec In Lab Juan Thomas MD CHEMISTRY ORDERABLES Performing Organization Address City/[facility]/ZIP Co de Phone Number [facility] [place] [address] * Folate, serum (12/28/2016 12:01 PM EDT) Folate 16.5 4.8 - 24.2 ng/mL [facility] Blood specimen (specimen) 12/28/2016 12:01 PM EDT 12/28/2016 12:11 PM EDT Narrative Resulting Agency Comment Spec In Lab Juan Thomas MD CHEMISTRY ORDERABLES [facility] [place] [address] * (ABNORMAL) Vitamin B12 (12/28/2016 12:01 PM EDT) Pathologist [facility] Vitamin B12 >2,000(H) 207 - 974 pg/mL [facility] Blood specimen (specimen) 12/28/2016 12:01 PM EDT 12/28/2016 12:11 PM EDT Narrative Resulting Agency Comment Spec In Lab Juan Thomas MD CHEMISTRY ORDERABLES Performing Organization Address City/[facility]/ZIP Co de Phone Number [facility] [place] [address] * PTH (12/28/2016 12:01 PM EDT) Parathyroid Hormone 39 15 - 65 pg/mL [facility] Blood specimen (specimen) 12/28/2016 12:01 PM EDT 12/28/2016 12:11 PM EDT Narrative Resulting Agency Comment Spec In Lab Juan Thomas MD CHEMISTRY ORDERABLES Performing Organization Address [facility] [place] [address] * Vitamin D, 25-Hydroxy (12/28/2016 12:01 PM EDT) Vitamin D Total 25 OH 42 30 - 100 ng/mL [facility] Comment: Deficient <10 ng/mL Insufficient 10 to 29 ng/mL Sufficient 30 to 100 ng/mL Potential Intoxication >100 ng/mL According to the [place] National Osteoporosis Foundation, Vitamin D concentrations >30 ng/mL are sufficient to protect bone health. ??The National Kidney Foundation has similarly stated that patients with Vitamin D concentrations <30ng/mL should be considered to be insufficient or deficient. [email or web address] The [employer] Vitamin D Immunoassay detects both 25-OH Vitamin D2 and 25-OH Vitamin D3, but only a total Vitamin D concentration is reported. Blood specimen (specimen) 12/28/2016 12:01 PM EDT 12/28/2016 1:52 PM EDT Narrative Resulting Agency Comment Spec In Lab Juan Thomas MD CHEMISTRY ORDERABLES Performing Organization Address [facility] Co de Phone Number [facility] [place] [address] documented in this encounter Visit Diagnoses Diagnosis Status post bariatric surgery Bariatric surgery status Intestinal malabsorption, unspecified type Vitamin D deficiency Unspecified vitamin D deficiency Iron deficiency anemia, unspecified iron deficiency anemia type documented in this encounter Care Teams Clinical Rehabilitation Aide Relationship Specialty Start Date End Date Radhika Xiao APRN [address] [place] [address] PCP - General Family Medicine 03/28/16 documented as of this encounter
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
--- OUTSIDE RECORDS SUMMARY | 2024-05-25 13:07 | XMS_ITS | Encounter Summary ---
Author Organization [place] [address] Care Team Providers Care Manager Enterprise Name Role Phone Radhika Xiao GERALD Primary Care Provider Reason for Visit * Reason Comments Follow-up Encounter Details Date Type Department Care Team (Late st Contact Info) Description 12/28/2016 12:30 PM EDT Office Visit General Surgery at [facility] [place] [address] Rebeca Jiménez, RELOCATION DIRECTOR [facility] [place] [id number] Arabella Watts, RD [facility] [place] [id number] S/P gastric bypass Social History Tobacco Use Types Packs/Day Years [...] Sign Reading Time Taken Comments Blood Pressure 114/68 12/28/2016 12:10 PM EDT Pulse 86 12/28/2016 12:10 PM EDT Temperature - - Respiratory Rate - - Oxygen Saturation 99% 12/28/2016 12:10 PM EDT Inhaled Oxygen Concentration - - Weight 129.3 kg (285 lb) 12/28/2016 12:10 PM EDT Height - - Body Mass Index 40.03 06/06/2016 8:48 AM EDT documented in this encounter Patient Instructions * Patient Instructions* Rebeca Jiménez APRN - 12/28/2016 12:30 PM EDT [facility] health service coordinator Jenny: [phone] Dietitian: [phone] Surgeons/ nurse practitioner: [phone] Nurse line: [phone] Testing: Labwork: Today. Please note that labwork results from non-[facility] labs take longer to get results. 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 Itis often difficult to track results done elswhere, and you can expect a processing delay. Having labwork done elsewhere makes trending of lab testing difficult. Please note that you will always receive a letter with lab results and recommendations. Please readthis letter carefully and follow recommendations. The letter also contains information regarding your next lab draw. Next visit: Routine visits are done at 4.8,12, 18 and 24 months after surgery, and yearly thereafter. Please call [phone] if you do not receive an appointment by 3-4 weeks prior to the expected visit. Medications: 1. Further recommendations pending labwork. Vitamins: The following vitamins are recommended: ??? Multivitamins with minerals twice daily ??? Vitamin B12 500 mcg by mouth once daily ??? Calcium citrate 600 mg with Vitamin D 400 units twice daily. To calculate calcium in a product,add a 0 to the % Daily Value (DV) - ex. If a product has 15% DV for calcium it has 150 mg calcium. ??? Iron with Vitamin C twice daily or as recommended by Rebeca Jiménez APRN Nutrition recommendations: - Continue to be active in the evening to prevent grazing. - If you do feel hungry in the evening, consider drinking more fluids or having a SF popsicles. - Your Daily Goals: ?? 1,000-1,200 calories per day (300 calories per meal, 100 calories per snack, 1-2 snacks per day) ?? 60 grams of protein per day (20 grams per meal) ?? 48-64 oz of non-caloric and hydrating fluids per day (6-8, 8 oz cups) ?? Do not drink with meals- pushes food through more quickly, can cause upset stomach Activity: ??? Keep up the good work with activity at home and work. Alcohol: should be used sparingly, no more [...] drugs is unsafe Anti-inflammatory medications such as Advil, Aleve, Excedrin, Ibuprofen should be used sparingly after gastric bypass, since they increase the risk of ulcer. Call us: ??? If you have concerns. ??? If you have unexplained abdominal pain. ??? if you see blood in your stool or vomit blood ??? If you have prolonged vomiting Post Surgery Support Group: Our post surgery support group meets on the first Saturday of every month from 1-2 PM at [facility]- no registration required Nutrition and Activity apps- Baritastic, My Fitness Pal, Lose It, My Plate Internet resources: www.[facility] [employer] www.Poundworld www.Optimata.[employer] www.Gridstore.[employer]/blog [facility] facebook page: [email or web address].[email or web address] CITY[facility]ariatricSurgery Books & Magazines: - Recipes for Life After Weight Loss Surgery by Nelda Wahl - Shrink Yourself by Dr Aleksandr Arriaza - Eating Well - Cooking Light documented in this encounter Progress Notes * Rebeca Jiménez APRN - 12/28/2016 12:30 PM EDT Reason for visit: First post-operative check S/P laparoscopic Anabelle-en-Y gastric bypass by Dr. Thomas on 05/16/16. ? Complications summary: Early None Late None ? Visits summary: Compliance with [facility] follow up: good Attendance at [facility] post-operative graduate support group meetings: none Pre-op 03/28/16 Wt (lbs) 408# BMI 57.3 Visit #2 WT: 04/04/16: 403# HT: 5'10.75 Intro: 06/17/2015 ? Post-op ? %EBW lost Supplement compliance Labwork 06/06/2016 361.2# 50.72 19.1 -[place] 1 tablet BID -Ferrous Sulfate 325 mg qd --Vitamin C 500 mg qd -Advantage w/vitamin D 1 chew BID -B12 SL 500 mcg qd ?08/31/2016 ??316.13 ??44.5 ??37.6 ??Good. -MVI 1 tab qd -BA Ca Citrate 1 chew BID -B12 SL 500 mcg qd -Ferrous Sulfate 325 mg qd w/vit C 500 mg qd Next visit with lab: today 12/26/16 285 40.03 53 -MVI 1 tab qd -BA Ca Citrate 1 chew BID -B12 SL 500 mcg qd -Ferrous Sulfate 325 mg w/vit C 500 mg BID today ? Screening/other: Date?? Evaluation?? Results?? 2016?? Primary care ? 04/04/16 Colonoscopy?? Entire colon normal including TI Never?? DEXA? Problem List: ??? Prediabetes: improved. HbA1C 5.4 on 08/31/16. ??? GAYLE (iron deficiency anemia): taking ferrous sulfate 325 mg and vitamin C 500 mg daily --Colonoscopy 04/04/16: the entire colon normal including terminal ileum. --Lab 03/30/16: CBC (H/H 12.5/39.3); ferritin 42; iron 42; TIBC 344; iron%12; B12 678; folate 11.7 --Lab 03/30/16: IgA 142; TTg IgA Ab <1.2 ??? Depression: treated with Wellbutrin ??? History of tobacco abuse: he restarted tobacco a month ago. Smoking 4 cig/day ??? Daytime somnolence: improved since surgery ??? Gastroesophageal reflux: treated with omeprazole 40 mg qd. 08/31/16: Will complete the current prescription then wean off. --EGD 04/04/16: LA Grade C esophagitis; normal area in the distal esophagus; normal stomach and duodenum. Bx: Duodenum: negative; stomach: negative; distal esophagus: mild chronic inflammation. There is no evidence of intestinal metaplasia. ??? Allergic rhinitis ??? Musculoskeletal Issues: --Pain in right shoulder --Low back pain --Plantar fasciitis of R foot ??? AUSTIN (obstructive sleep apnea): A. PSG 03/29/15 at wt 386#, BMI: [...] class IV obesity ??? Acrochordon Past Surgical History: Procedure Laterality Date ??? PRO COLONOSCOPY, DIAGNOSTIC N/A 04/04/2016 COLONOSCOPY, DIAGNOSTIC performed by Julia Ashraf MD at [facility] ENDOSCOPY ??? PRO LAP GASTRIC BYPASS/ANABELLE-EN-Y N/A 05/16/2016 @LAPAROSCOPIC GASTROPLASTY, performed by Juan Thomas MD at [facility] MAIN OR ??? PRO UPPER GI ENDOSCOPY, BIOPSY N/A 04/04/2016 UPPER GASTROINTESTINAL ENDOSCOPY,WITH BIOPSY SINGLE OR MULTIPLE performed by Julia Ashraf MD at [facility] ENDOSCOPY ??? PRO UPPER GI ENDOSCOPY, DIAGNOSTIC N/A 04/04/2016 EGD, UPPER GI ENDOSCOPY performed by Julia Ashraf MD at [facility] ENDOSCOPY ??? PRO UPPER GI ENDOSCOPY, DIAGNOSTIC N/A 05/16/2016 ENDOSCOPY, UPPER GI, DIAGNOSTIC, WITH OR WITHOUT SPECIMENS performed by Juan Thomas MD at [facility] OR Allergies: NKDA Medications: reviewed in edh Visits to emergency department or other unplanned visit to a health care facility since last visit?He reports presenting to local ER twice for evaluation of his right ankle sprain and left foot swelling. He reports being started on a five day methylprednisolone taper this past week. Changes to health/ evaluations/ social history since last visit: denies Subjective. Patient concerns at today's visit: he reports doing well from a bariatric perspective and denies any issues from a bariatric perspective. States that bariatric surgery has positively affected his life and best choice I ever made. He admits to intermittent grazing in the evening that he attributes to boredom. He will eat a sugarfree popsicle or drink more fluids to avoid grazing. He reports feeling hungry all the time. He does admit to head hunger. He reports that any type of sweets results in feeling fatigued and get shakes. He avoids eating chicken breast and peanut butter secondary to feeling nauseous post prandially andfeels like it is stuck. Review of Systems (negative if left blank): Constitutional: [+] fatigue [] pica Neurologic: [] paresthesias [] memory loss CV: [] treatment for hypertension or taking antihypertensive medication [ ] treatment for hyperlipidemia Pulmonary: [] sleep apnea symptoms [+] treated for AUSTIN: he reports not using his CPAP machine for the past 2 months. He will schedule a follow up appointment with the sleep center to discuss scheduling a repeat sleep study. GI: [] GERD, dysphagia [+] dumping: refer to HPI [] abdominal pain, hernia [] nausea/vomiting [] blood in stool [+] chronic diarrhea/ constipation: he reports periodic constipation that resolves with increasing his dietary fiber intake. 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 Lives with girlfriend who is supportive of his interest in surgery. Currently his 2 children and her 2 children are living with them fulltime. Twins age 3, son age 4, daughter age 9. Health-related habits: Tobacco: 1 pack every 3 days but will be starting new prescription, Wellbutrin XL to work on smoking cessation Alcohol: 4 drinks in the past months Dietary history: See dietitian note. Objective: General: 36 y.o. year-old male looks well. Heart: RRR. S1S2. No murmur, gallop or rub appreciated Lungs: CTA no wheezing Abdomen: soft, non-tender, non-distended. BS+. Abdominal trocar sites well- healed, without evidenceof hernia. Extremities: no edema Vital signs: BP 114/68 Pulse 86 Wt (!) 129.3 kg (285 lb) SpO2 99% BMI 40.03 kg/m2 Today's Lab Work: Recent Results (from the past 72 hour(s)) Vitamin D, 25-Hydroxy Result Value Ref Range 25-OH Vit D Total 42 30 - 100 ng/mL PTH Result Value Ref Range PTH 39 15 - 65 pg/mL Vitamin B12 Result Value Ref Range Vitamin B-12 >2000 (H) 207 - 974 pg/mL Folate, serum Result Value Ref Range Folate Lvl 16.5 4.8 - 24.2 ng/mL Ferritin Result Value Ref Range Ferritin 146 30 - 400 ng/mL Iron and TIBC Result Value Ref Range Iron 84 45 - 160 mcg/dL TIBC 300 250 - 450 mcg/dL Iron Saturation 28 20 - 50 % Prealbumin Result Value Ref Range Prealbumin 20 20 - 40 mg/dL Comprehensive metabolic panel (non-fasting) Result Value Ref Range Glucose Lvl 109 65 - 199 mg/dL BUN 16 10 - 20 mg/dL Creatinine 0.87 0.80 - 1.50 mg/dL Sodium 140 135 - 145 mmol/L Potassium 4.7 3.5 - 5.0 mmol/L Chloride 101 98 - 107 mmol/L CO2 27 22 - 31 mmol/L Anion Gap 12 5 - 15 mmol/L Calcium 9.8 8.5 - 10.5 mg/dL Total Protein 7.5 6.1 - 8.0 gm/dL Albumin 4.7 3.2 - 5.2 gm/dL AST 15 0 - 39 unit/L ALT 20 0 - 55 unit/L Alk Phos 98 40 - 120 unit/L Total Bilirubin 0.4 0.2 - 1.3 mg/dL Bili, Direct 0.1 0.0 - 0.3 mg/dL Estimated GFR >60 >=60 Hemogram Result Value Ref Range WBC 8.4 4.0 - 9.5 x10(3)/mcL RBC 4.76 4.58 - 5.54 x10(6)/mcL Hemoglobin 14.7 13.7 - 16.5 gm/dL Hematocrit 43.6 40.5 - 48.5 % MCV 91.6 82.9 - 93.1 fL MCH 30.9 27.5 - 32.1 pg MCHC 33.7 32.0 - 35.7 gm/dL Platelets 240 145 - 357 x10(3)/mcL RDWSD 40.7 36.0 - 45.0 fL RDWCV 12.0 11.4 - 13.8 % MPV 10.2 7.6 - 12.9 fL nRBC % Auto 0.0 % nRBC Abs Auto 0.000 0.000 - 0.000 x10(3)/mcL Differential, Automated Result Value Ref Range Neutrophils % 85.2 % Neutr Abs (ANC) 7.14 (H) 1.70 - 6.10 x10(3)/mcL Lymphocytes % 11.2 % Lymphocytes Abs 0.9 0.9 - 3.2 x10(3)/mcL Monocytes % 2.9 % Monocyte Abs 0.2 (L) 0.3 - 0.9 x10(3)/mcL Eosinophils % 0.1 % Eosinophils Abs 0.0 0.0 - 0.4 x10(3)/mcL Basophils % 0.2 % Basophils Abs 0.0 0.0 - 0.1 x10(3)/mcL Immature Gran % 0.40 % Laine Gran Abs 0.03 0.00 - 0.04 x10(3)/mcL Assessment: S/P LRNYGB 05/16/16, with loss of 53% of excess body weight. Plan: ?? Congratulated Konstantin on his ongoing lifestyle efforts and for working on smoking cessation ?? Discussed strategies to minimize grazing. Consider ongoing counseling if Konstantin continues to experience difficulty in not engaging in grazing ?? Next BSP visit: 4 months ?? Next labwork: today ?? Additional vitamin and mineral supplement recommendations (*in addition to usual post surgery supplements, as noted below): recommendations pending lab results ?? dietary/ exercise recommendations per RD ?? Advised to call if develops unexplained abdominal pain, concerns or questions ?? Constipation strategies discussed. Consider Miralax 17 grams qd, Benefiber qd-TID, Citrucel qd-BID. He was provided with a Bariatric Program Summary report which included the above recommendations, as well as information on vitamin and mineral supplementation, fluids, exercise and support group meetings. He has had an opportunity to have all his questions answered and is in agreement with the plan of care. Konstantin was advised of lab results via mail. RECOMMENDED BARIATRIC SURGERY PROGRAM POSTOPERATIVE FOLLOW-UP: Follow [...] 4, 12, 18 and 24 months, and yearly.Prealbumin is done at 4 and 12 months and PRN. If labwork is done by the primary day care worker: please send a copy to the Bariatric Surgery Program, General Surgery Clinic, [facility], attention Dorys Rivers APRN. Questions regarding [facility] Bariatric Surgery Program patients: please call Abiodun Rivers APRN at [phone] or [phone] [phone]. E-mail: [email or web address] * Arabella Watts, RD - 12/28/2016 12:30 PM EDT Bariatric Surgery Program Nutrition Progress Note Encounter Type: follow up SUBJECTIVE: Topics Discussed/Patient Concerns: ?? Grazing if he's bored. States in the past he can avoid grazing if he has SF popsicles or fluid. ?? States bariatric surgery has positively affected his life - best choice I ever made. 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 Lives with girlfriend who is supportive of his interest in surgery. Currently his 2 children and her 2 children are living with them fulltime. Twins age 3, son age 4, daughter age 9. Vision at 2 years post-op: more energy - run a 5k with his kids, tough mudder or spartan race 1 year post-op. Being involved with kids activities. OBJECTIVE: Date of Bariatric Surgery: 05/16/16 Type of Bariatric Surgery: Laparoscopic Anabelle-en-Y Gastric Bypass Weight History: Date Weight (lbs) HT BMI Comments 405# Highest Weight 07/08/15 392.8# Initial program weight 03/28/16 408# 70.75 57.3 1st pre-op visit [facility] % Surgery 06/06/16 361.1# 19.1% 50.7 1 month post-op 08/31/16 36.1# 37.6% 44.5 12/28/16 285# 53% 40.0 8 months post-op [place] Body Weight (based on BMI of 25): 174# Excess Weight: 218# 50-70% Excess Weight Loss: 230-285# MEDICATIONS: Vitamin/Mineral Supplements (reported by patient): Supplement Type Brand/Form Dosage/Amount Frequency Comments Multivitamin Men's MVM 1 Twice daily Calcium Bariatric Advantage 500 mg One daily When he remembers - hard with taking iron twice daily Vitamin B12 pill 500 mcg Once daily Iron 325 mg Twice daily Hx of deficiency Vitamin C chewable 500 mg Daily w/iron pill Vitamin D pill 5000 IU daily Tracking Intake: No. Finds it hard to track when he's at work. Daily Oral Intake: Breakfast 1 c cottage cheese AM Snack 3pk cream cheese and chive crx AM Snack string cheese or yogurt or Georgian yogurt Lunch Whatever is served at work - meat and beans, vegetable/fruit and sometimes a starch PM Snack Dinner Chicken steak or pork and vegetable (cooked or salad) , 2-3 x week will have a strarch HS Snack 1/4 cup almonds or yogurt or cheese or carrots and celery or pepperoni and cheese Protein/ grams per day: 104 Calories per day: 1200 Hydrating fluids- oz/ day: 64 oz water, Soda: None ETOH: 4 drinks in 6 months (New Years, reunion) Caffeine: SF Monster drink (iced tea), reg coffee Sweets: Once every 2 week Meals per day: 3 plus snacks ?? Feels full/satisfied after eating: Feels satisfied when he finishes eating but is hungry again within a few hours. Notes sometimes it's head hunger. ?? Feels hungry []never [x]sometimes []most of the time [] always ?? Drinks with meals: No. Follows 30-30-30 rule at meals. Will drink shortly after having a snack. ?? Practices portion control: Yes ?? Spends at least 20 minutes eating each meal: takes 15-20 min to eat a meal ?? Has had dumping syndrome: anything sweet - cake, some ice cream, cupcake Foods/Symptoms: starts shaking or falls asleep ?? In the past month, pt has vomited/regurgitated: not recently Food Allergies/Intolerances: bread, PB, chicken and turkey Exercise: walking 4-5 miles/day at work; 1-3 times a week does Xbox workout ; Hopes to do a tough mudder in the Fall ASSESSMENT: Summary of Weight Loss: Patient's percent excess weight loss is 53% which is within the expected post-op bariatric surgery range. Pt is tolerating the diet well and is meeting protein and fluid needs. Pt eating/grazing due to boredom over the winter months which he believes will resolve now that the weather is better. He is taking the recommended vitamin and mineral supplements but has a hard time fitting in second calcium dose. Pt gets regular exercise/activity. NUTRITION INTERVENTION & MONITORING: ?? Continue to be active in the evening to prevent grazing. ?? If you do feel hungry in the evening, consider drinking more fluids or having a SF popsicles. ?? Provided support/encouragement and reinforced importance of meeting nutritional goals. ?? Reviewed nutrition and vitamin and mineral supplement recommendations (see patient instructions). ?? Written recommendations provided. Patient agreed with these and verbalized adequate understanding. ?? Evaluation by nurse practitioner today. documented in this encounter Plan of Treatment Not on file documented as of this encounter Visit Diagnoses Diagnosis S/P gastric bypass Bariatric surgery status documented in this encounter Care Teams Manager Enterprise Relationship Specialty Start Date End Date Radhika Xiao APRN [address] [place] [address] PCP - General Family Medicine 03/28/16 documented as of this encounter
--- OUTSIDE RECORDS SUMMARY | 2024-05-25 13:07 | XMS_ITS | Encounter Summary ---
[place] [address] Care Team Providers Care Loan Servicing Specialist Name Role Phone Radhika Xiao APRN Primary Care Provider Encounter Details Date Type Department Care Team (Latest Contact Info) Description 08/31/2016 8:00 AM EST Laboratory Appointment Lab [address] [place] [id number] Disorder of iron metabolism; Status post bariatric surgery; Prediabetes; Obstructive sleep apnea; Encounter for vitamin deficiency screening Social History Tobacco Use Types Packs/Day Years [...] Priority Date/Time Associated Diagnosis Comments PTH Routine 08/31/2016 8:06 AM EST Encounter for vitamin deficiency screening Status post bariatric surgery HEMOGRAM Routine 08/31/2016 8:06 AM EST Disorder of iron metabolism Status post bariatric surgery DIFFERENTIAL, AUTOMATED Routine 08/31/2016 8:06 AM EST Disorder of iron metabolism Status post bariatric surgery IRON AND TIBC Routine 08/31/2016 8:06 AM EST Disorder of iron metabolism Status post bariatric surgery Obstructive sleep apnea VITAMIN D, 25-HYDROXY Routine 08/31/2016 8:06 AM EST Encounter for vitamin deficiency screening Status post bariatric surgery CBC (WITH DIFF) Routine 08/31/2016 8:06 AM EST Disorder of iron metabolism Status post bariatric surgery PREALBUMIN Routine 08/31/2016 8:06 AM EST Status post bariatric surgery HEMOGLOBIN A1C Routine 08/31/2016 8:06 AM EST Prediabetes Status post bariatric surgery FOLATE, SERUM Routine 08/31/2016 8:06 AM EST Status post bariatric surgery FERRITIN Routine 08/31/2016 8:06 AM EST Disorder of iron metabolism Status post bariatric surgery Obstructive sleep apnea VITAMIN B12 Routine 08/31/2016 8:06 AM EST Status post bariatric surgery COMPREHENSIVE METABOLIC PANEL Routine 08/31/2016 8:06 AM EST Status post bariatric surgery documented in this encounter Results * Differential, Automated (08/31/2016 8:06 AM EST) Neutrophil % 62.9 % [facility] Neutrophil Absolute 3.02 1.70 - 6.10 x10(3)/[facility] Lymph % 20.6 % [facility] Lymphocytes Abs 1.0 0.9 - 3.2 x10(3)/[facility] Monocyte % 11.7 % [facility] Monocyte Abs 0.6 0.3 - 0.9 x10(3)/[facility] Eos % 4.4 % [facility] Eosinophils Abs 0.2 0.0 - 0.4 x10(3)/[facility] Basophil % 0.2 % [facility] Baso Absolute 0.0 0.0 - 0.1 x10(3)/[facility] Immature Gran % 0.20 % [facility] Comment: Immature granulocytes(IG's)percentage and absolute count will include metamyelocytes, myelocytes, and promyelocytes. Blood smears from CBCs yielding IG's will be scanned manually for concordance. If this scan disagrees with the automated IG or if promyelocytes are noted, a manual differential will be performed. Immature Gran Absolute 0.01 0.00 - 0.04 x10(3)/[facility] Blood specimen (specimen) 08/31/2016 8:06 AM EST 08/31/2016 8:12 AM EST Narrative Resulting Agency Comment Spec In Lab Juan Thomas MD HEMATOLOGY ORDERABLE S [facility] [place] [address] * (ABNORMAL) Hemogram (08/31/2016 8:06 AM EST) White Blood Cell 4.8 4.0 - 9.5 x10(3)/mc L [facility] Red Blood Cell 4.56(L) 4.58 - 5.54 x10(6)/mc L [facility] Hemoglobin 13.6(L) 13.7 - 16.5 gm/dL [facility] Hematocrit 40.7 40.5 - 48.5 % [facility] Mean Cell Volume 89.3 82.9 - 93.1 fL [facility] Mean Cell Hemoglobin 29.8 27.5 - 32.1 pg [facility] Mean Cell Hemoglobin Concentration 33.4 32.0 - 35.7 gm/dL [facility] Platelet 209 145 - 357 x10(3)/mc L [facility] RDW Standard Deviation 44.7 36.0 - 45.0 fL [facility] RDW coefficient of variation 13.6 11.4 - 13.8 % [facility] Mean Platelet Volume 10.4 7.6 - 12.9 fL [facility] NRBC% auto 0.0 % [facility] NRBC Absolute 0.000 0.000 - 0.000 x10(3)/mc L [facility] Blood specimen (specimen) 08/31/2016 8:06 AM EST 08/31/2016 8:12 AM EST Narrative Resulting Agency Comment Spec In Lab Juan Thomas MD HEMATOLOGY ORDERABLE S Performing Organization Address City/[facility]/ZIP Co de Phone Number [facility] [place] [address] * PTH (08/31/2016 8:06 AM EST) Parathyroid Hormone 55 15 - 65 pg/mL [facility] Blood specimen (specimen) 08/31/2016 8:06 AM EST 08/31/2016 8:12 AM EST Narrative Resulting Agency Comment Spec In Lab Juan Thomas MD CHEMISTRY ORDERABLES Performing Organization Address [facility] Co de Phone Number [facility] [place] [address] * Folate, serum (08/31/2016 8:06 AM EST) Folate 10.9 4.8 - 24.2 ng/mL [facility] Blood specimen (specimen) 08/31/2016 8:06 AM EST 08/31/2016 8:12 AM EST Narrative Resulting Agency Comment Spec In Lab Juan Thomas MD CHEMISTRY ORDERABLES Performing Organization Address [facility] Co de Phone Number [facility] [place] [address] * (ABNORMAL) Vitamin B12 (08/31/2016 8:06 AM EST) Vitamin B12 1,820(H) 207 - 974 pg/mL [facility] Blood specimen (specimen) 08/31/2016 8:06 AM EST 08/31/2016 8:12 AM EST Narrative Resulting Agency Comment Spec In Lab Juan Thomas MD CHEMISTRY ORDERABLES Performing Organization Address [facility] Co de Phone Number [facility] [place] [address] * (ABNORMAL) Vitamin D, 25-Hydroxy (08/31/2016 8:06 AM EST) Vitamin D Total 25 OH 27(L) 30 - 100 ng/mL [facility] be considered to be insufficient or deficient. [email or web address]://[email or web address]/[email or web address] [email or web address] http://Citizengine/[facility] – DRUMRIGHTVitD The IDS iSYS Vitamin D Immunoassay detects both 25-OH Vitamin D2 and 25-OH Vitamin D3, but only a total Vitamin D concentration is reported. Blood specimen (specimen) 08/31/2016 8:06 AM EST 08/31/2016 10:06 AM EST Narrative Resulting Agency Comment Spec In Lab Juan Thomas MD CHEMISTRY ORDERABLES Performing Organization Address [facility] Co de Phone Number [facility] [place] [address] * Ferritin (08/31/2016 8:06 AM EST) Ferritin 112 30 - 400 ng/mL [facility] Comment: Pediatric reference ranges not verified at [facility], interpret with caution. Reference ranges for females greater than 50 years of age approach values for men, i.e., 30-400 ng/mL. Blood specimen (specimen) 08/31/2016 8:06 AM EST 08/31/2016 8:12 AM EST Narrative Resulting Agency Comment Spec In Lab Juan Thomas MD CHEMISTRY ORDERABLES Performing Organization Address [facility] Co de Phone Number [facility] [place] [address] * (ABNORMAL) Iron and TIBC (08/31/2016 8:06 AM EST) Iron 29(L) 45 - 160 mcg/dL [facility] TIBC 268 250 - 450 mcg/dL [facility] Iron Saturation 11(L) 20 - 50 % [facility] Blood specimen (specimen) 08/31/2016 8:06 AM EST 08/31/2016 8:12 AM EST Narrative Resulting Agency Comment Spec In Lab Juan Thomas MD CHEMISTRY ORDERABLES Performing Organization Address [facility] Co de Phone Number [facility] [place] [address] * Hemoglobin A1c (08/31/2016 8:06 AM EST) Pathologist [facility] Hemoglobin A1c 5.4 4.3 - 5.6 % [facility] [...] Mellitus, Diabetes Care 2013; 36: Suppl. 1, Z23-38 Estimated Average Glucose 108 mg/dL [facility] [...] resources are available on the ADA website: [email or web address].[email or web address]/[facility] – DRUMRIGHTadacalc Jonn PONCE, Yessica J, Sara R, et al. ??Translating the A1C assay into estimated average glucose values. ??Diabetes Care 2008:31(8):6812-8540. Blood specimen (specimen) 08/31/2016 8:06 AM EST 08/31/2016 8:12 AM EST Narrative Resulting Agency Comment Spec In Lab Juan Thomas MD CHEMISTRY ORDERABLES Performing Organization Address [facility] de Phone Number [facility] [place] [address] * (ABNORMAL) Prealbumin (08/31/2016 8:06 AM EST) Prealbumin 17(L) 20 - 40 mg/dL [facility] Comment: Prealbumin levels are generally lower in the pediatric population; adult concentrations are usually attained near puberty. Blood specimen (specimen) 08/31/2016 8:06 AM EST 08/31/2016 8:12 AM EST Narrative Resulting Agency Comment Spec In Lab Juan Thomas MD CHEMISTRY ORDERABLES Performing Organization Address [facility] Co de Phone Number [facility] [place] [address] * Comprehensive metabolic panel (non-fasting) (08/31/2016 8:06 AM EST) Glucose 93 65 - 199 mg/dL [facility] Comment:Diabetes: >=200 mg/d L plus symptoms Blood Urea Nitrogen 13 10 - 20 mg/dL [facility] Creatinine 0.90 0.80 - 1.50 mg/dL [facility] Comment: Please note that the pediatric reference intervals supplied above were not validated at [facility]. Results from pediatric patients should be interpreted in conjunction to the patient's age, height and muscle mass. Sodium 141 135 - 145 mmol/L [facility] Potassium 4.1 3.5 - 5.0 mmol/L [facility] Comment: Please note: ??Patients with WBC >100,000 may have falsely elevated Potassium levels. ??For accurate Potassium quantification in these patients send serum separator tube (gold top) for subsequent determinations. ??Contact the Clinical Chemistry Laboratory if there are any questions. Chloride 100 98 - 107 mmol/L [facility] Carbon Dioxide 27 22 - 31 mmol/L [facility] Anion Gap 14 5 - 15 mmol/L [facility] Calcium 9.2 8.5 - 10.5 mg/dL [facility] Protein, Total 7.0 6.1 - 8.0 gm/dL [facility] Albumin 4.3 3.2 - 5.2 gm/dL [facility] Aspartate Aminotransferase 17 0 - 39 unit/L [facility] Alanine Aminotransferase 18 0 - 55 unit/L [facility] Alkaline Phosphatase 96 40 - 120 unit/L [facility] Bilirubin, Total 0.4 0.2 - 1.3 mg/dL [facility] Bilirubin, Direct 0.1 0.0 - 0.3 mg/dL [facility] Est Glomerular Filtration Rate >60 >=60 [facility] Comment: This estimated GFR (eGFR) value [...] the following links into your internet browser. http://Citizengine/[email or web address] [email or web address] Blood specimen (specimen) 08/31/2016 8:06 AM EST 08/31/2016 8:12 AM EST Narrative Resulting Agency Comment Spec In Lab Juan Thomas MD CHEMISTRY ORDERABLES [place] [phone] documented in this encounter Visit Diagnoses Diagnosis Disorder of iron metabolism Other disorders of iron metabolism Status post bariatric surgery Bariatric surgery status Prediabetes Other abnormal glucose Obstructive sleep apnea Obstructive sleep apnea (adult) (pediatric) Encounter for vitamin deficiency screening Screening for other and unspecified endocrine, nutritional, metabolic, and immunity disorders documented in this encounter Care Teams Loan Servicing Specialist Relationship Specialty Start Date End Date Radhika Xiao, GERALD [address] [place] [address] PCP - General Family Medicine 03/28/16 documented as of this encounter
--- OUTSIDE RECORDS SUMMARY | 2024-05-25 13:07 | XMS_ITS | Encounter Summary ---
[place] [address] Care Team Providers Care Officer Lieutenant Name Role Phone Radhika Xiao APRN Primary Care Provider Encounter Details Date Type Department Care Team (Latest Contact Info) Description 05/22/2017 9:05 AM EDT Laboratory Appointment Lab [address] [place] [phone] Disorder of iron metabolism; Status post bariatric surgery; Intestinal malabsorption, unspecified type Social History Tobacco Use Types Packs/Day [...] Priority Date/Time Associated Diagnosis Comments HEMOGRAM Routine 05/22/2017 10:53 AM EDT Disorder of iron metabolism Status post bariatric surgery Intestinal malabsorption, unspecified type IRON AND TIBC Routine 05/22/2017 10:53 AM EDT Disorder of iron metabolism Status post bariatric surgery Intestinal malabsorption, unspecified type VITAMIN D, 25-HYDROXY Routine 05/22/2017 10:53 AM EDT Status post bariatric surgery Intestinal malabsorption, unspecified type PREALBUMIN Routine 05/22/2017 10:53 AM EDT Status post bariatric surgery Intestinal malabsorption, unspecified type FERRITIN Routine 05/22/2017 10:53 AM EDT Disorder of iron metabolism Status post bariatric surgery Intestinal malabsorption, unspecified type HEPATIC FUNCTION PANEL Routine 05/22/2017 10:53 AM EDT Status post bariatric surgery Intestinal malabsorption, unspecified type documented in this encounter Results * Vitamin D, 25-Hydroxy (05/22/2017 10:53 AM EDT) Vitamin D Total 25 OH 33 30 - 100 ng/mL [facility] Comment: Deficient <10 ng/mL Insufficient 10 to 29 ng/mL Sufficient 30 to 100 ng/mL Potential Intoxication >100 ng/mL According to the [place] National Osteoporosis Foundation, Vitamin D concentrations >30 ng/mL are sufficient to protect bone health. ??The National Kidney Foundation has similarly stated that patients with Vitamin D concentrations <30ng/mL should be considered to be insufficient or deficient. http://Eyestorm.Xooker/nkf-guidelines http://Eyestorm.Xooker/nejm-VitD The IDS iSYS Vitamin D Immunoassay detects both 25-OH Vitamin D2 and 25-OH Vitamin D3, but only a total Vitamin D concentration is reported. Blood specimen (specimen) 05/22/2017 10:53 AM EDT 05/22/2017 1:29 PM EDT Narrative Resulting Agency Comment Spec In Lab Dorys Rivers APRN CHEMISTRY ORDERAB LES [facility] [place] [address] * Iron and TIBC (05/22/2017 10:53 AM EDT) Iron 105 45 - 160 mcg/dL [facility] TIBC 283 250 - 450 mcg/dL [facility] Iron Saturation 37 20 - 50 % [facility] Blood specimen (specimen) 05/22/2017 10:53 AM EDT 05/22/2017 10:59 AM EDT Narrative Resulting Agency Comment Spec In Lab Dorys Yatesigley ELECTRICAL DESIGN TECHNOLOGIST CHEMISTRY ORDERAB LES [facility] [place] [address] * Ferritin (05/22/2017 10:53 AM EDT) [facility] Ferritin 161 30 - 400 ng/mL [facility] Comment: Pediatric reference ranges not verified at [facility] interpret with caution. Reference ranges for females greater than 50 years of age approach values for men, i.e., 30-400 ng/mL. Blood specimen (specimen) 05/22/2017 10:53 AM EDT 05/22/2017 10:59 AM EDT Narrative Resulting Agency Comment Spec In Lab Dorys Cuellar Silvestre ELECTRICAL DESIGN TECHNOLOGIST CHEMISTRY ORDERAB LES Performing Organization Address City/[facility]/ZIP Co de Phone Number [facility] [place] [address] * Prealbumin (05/22/2017 10:53 AM EDT) [facility] Prealbumin 22 20 - 40 mg/dL [facility] Comment: Prealbumin levels are generally lower in the pediatric population; adult concentrations are usually attained near puberty. Blood specimen (specimen) 05/22/2017 10:53 AM EDT 05/22/2017 10:59 AM EDT Narrative Resulting Agency Comment Spec In Lab Dorys T Silvestre ELECTRICAL DESIGN TECHNOLOGIST CHEMISTRY ORDERAB LES Performing Organization Address City/[facility]/ZIP Co de Phone Number [facility] [place] [address] * Hepatic Function Panel (05/22/2017 10:53 AM EDT) [facility] Protein, Total 7.0 6.1 - 8.0 gm/dL [facility] Albumin 4.3 3.2 - 5.2 gm/dL [facility] Aspartate Aminotransferase 20 0 - 39 unit/L [facility] Alanine Aminotransferase 23 0 - 55 unit/L [facility] Alkaline Phosphatase 83 40 - 120 unit/L [facility] Bilirubin, Total 0.3 0.2 - 1.3 mg/dL [facility] Bilirubin, Direct 0.1 0.0 - 0.3 mg/dL [facility] Blood specimen (specimen) 05/22/2017 10:53 AM EDT 05/22/2017 10:59 AM EDT Narrative Resulting Agency Comment Spec In Lab Dorys Rivers ELECTRICAL DESIGN TECHNOLOGIST CHEMISTRY ORDERAB LES Performing Organization Address City/State/[place] Co de Phone Number [facility] [place] [address] * Hemogram (05/22/2017 10:53 AM EDT) [facility] White Blood Cell 9.4 4.0 - 9.5 x10(3)/[facility] Red Blood Cell 4.81 4.58 - 5.54 x10(6)/[facility] Hemoglobin 15.2 13.7 - 16.5 gm/dL [facility] Hematocrit 43.8 40.5 - 48.5 % [facility] Mean Cell Volume 91.1 82.9 - 93.1 fL [facility] Mean Cell Hemoglobin 31.6 27.5 - 32.1 pg [facility] Mean Cell Hemoglobin Concentration 34.7 32.0 - 35.7 gm/dL [facility] Platelet 248 145 - 357 x10(3)/[facility] RDW Standard Deviation 39.7 36.0 - 45.0 fL [facility] RDW coefficient of variation 11.8 11.4 - 13.8 % [facility] Mean Platelet Volume 10.7 7.6 - 12.9 fL [facility] NRBC% auto 0.0 % [facility] NRBC Absolute 0.000 0.000 - 0.000 x10(3)/mcL [facility] Blood specimen (specimen) 05/22/2017 10:53 AM EDT 05/22/2017 10:59 AM EDT Narrative Resulting Agency Comment Spec In Lab Dorys Rivers ELECTRICAL DESIGN TECHNOLOGIST HEMATOLOGY ORDERA BLES [facility] [place] [address] documented in this encounter Visit Diagnoses Diagnosis Disorder of iron metabolism Other disorders of iron metabolism Status post bariatric surgery Bariatric surgery status Intestinal malabsorption, unspecified type documented in this encounter Care Teams Officer Lieutenant Relationship Specialty Start Date End Date Radhika Xiao APRN [address] [place] [address] PCP - General Family Medicine 03/28/16 documented as of this encounter
--- OUTSIDE RECORDS SUMMARY | 2024-05-25 13:07 | XMS_ITS | Encounter Summary ---
Author Organization [facility] Address [facility] [place] [address] Care Team Providers Care Huc Name Role Phone Radhika Xiao GERALD Primary Care Provider Encounter Details Date Type Department Care Team (Latest Contact Info) Description 12/27/2017 9:12 AM EDT - 12/27/2017 11:59 PM EDT Hospital En[place] [address] Nathaniel Singh, P[facility]TER IN [facility] [place] [address] Status post bariatric surgery; Generalized abdominal pain; Gastroesophageal reflux disease, esophagitis presence not specified Discharge Disposition: Home Social History Tobacco Use Types Packs/Day Years Used Date Smoking Tobacco: Every Day Cigarettes 0.3 2 Started: 12/27/2013; Last attempted to quit: [...] ORAL) Take 2 tablets by mouth daily. omeprazole (PRILOSEC) 40 mg Capsule, Delayed Release(E.C.)Indications :Disorder of iron metabolism,Status post bariatric surgery,Intestinal malabsorption, unspecified type,Generalized abdominal pain,Gastroesophageal reflux disease, esophagitis presence not specified Take 1 capsule by mouth daily. Take 30 minutes before breakfast. 30 capsule 11 11/20/2017 11/20/2018 buPROPion (WELLBUTRIN XL) 150 mg Tablet Extended Release 24 hr Take 150 mg by mouth daily. 3 04/22/2017 07/11/2018 CYANOCOBALAMIN/COBAMAMID E (B12 SL) Place under the tongue daily. 11/30/2019 documented as of this encounter Plan of Treatment Not on file documented as of this encounter Procedures Procedure Name Priority Date/Time Associated Diagnosis Comments US ABDOMEN COMPLETE Routine 12/27/2017 9 :57 AM EDT Status post bariatric surgery Generalized abdominal pain Gastroesophageal reflux disease, esophagitis presence not specified documented in this encounter Results * US Abdomen Complete (12/27/2017 9:57 AM EDT) Anatomical Region Laterality Modality Abdomen, Vascular Ultrasound 12/27/2017 9:57 AM EDT Impressions 12/27/2017 10:13 AM EDT ??Poor evaluation of the pancreas due to overlying bowel gas. Otherwise normalabdominal ultrasound. Specifically, normal gallbladder, no cholelithiasis. ?Nakia Tomlin MD Electronically Signed Final Report ?? 12/27/2017 10:12 am Narrative 12/27/2017 10:13 AM EDT Abdominal ? (Signed Final 12/27/2017 10:12 am) PATIENT INFO: ID #: ? [id number] ?: ??[birth year] (37 yrs) Name: ? KONSTANTIN HICKEY ?Visit Date: 12/27/2017 09:57 am PERFORMED BY: Performed By: ? Pham Chambers RDMS Attending: ?Sada PAUL, Nakia Erickson Referred By: ?NATHANIEL SINGH Location: ? [facility] SERVICE(S) PROVIDED: ??[facility] - Abdominal Complete Survey - [id number] INDICATIONS: ??abdominal pain, right upper quadrant and ??and radiating to lower abdomen in response ??to eating. COMPARISON: None. ------ LIVER: ------ Right Lobe Length: ?? 17.3 ?? cm Echogenicity/Echotexture: ?? Normal Comment: ?No focal lesion seen. GALLBLADDER: Cholelithiasis: ?No stones visualized Wall Thickness: ?2.0 mm, normal wall thickness Focal Tenderness: ?Negative sonographic Wright's sign BILIARY TRACT: Intrahepatic Ducts: ?? Normal Extrahepatic Ducts: ?? Normal where seen Common Duct Size: ? 2.0 ? mm --------- PANCREAS: --------- Head: ? Limited visualization due to overlying ? bowel Tail: ? Not visualized, obscured by overlying ? bowel Body: ? Limited visualization due to overlying ? bowel ------- SPLEEN: ------- Size (cm) ?L: ??11.4 ?AP: ??6.3 ? TV: ??4.9 Vol (ml): ?184.3 Comment: ?Normal size and appearance. Small splenule seen, ? measurin.5 x 0.8 x 1.5 cm. RIGHT KIDNEY: Size (cm) ?L: ??12.5 Cortical Thickness: ?Normal Cortical Echogenicity: ?? Normal Hydronephrosis: ?No sonographic evidence LEFT KIDNEY: Size (cm) ?L: ??12.0 Cortical Thickness: ?Normal Cortical Echogenicity: ?? Normal Hydronephrosis: ?No sonographic evidence ------ AORTA: ------ Measurements (cm): Proximal ? AP: ?? 2.1 Mid ?AP: ?? 1.9 Distal ? AP: ?? 1.6 Comment: ?Normal in caliber where visualized, segments ? obscured by overlying bowel. ---- IVC: ---- Normal in caliber where visualized. FLUID COLLECTIONS: No ascites in the imaged upper abdomen. Procedure Note Nakia Tomlin MD - 12/27/2017 Abdominal (Signed Final 12/27/2017 10:12 am) PATIENT INFO: ID #: [id number] : [birth year] (37 yrs) Name: KONSTANTIN HICKEY Visit Date: 12/27/2017 09:57 am PERFORMED BY: Performed By: Pham Chambers RDMS Attending: Nakia Tomlin MD Referred By: NATHANIEL SINGH Location: [facility] SERVICE(S) PROVIDED: [facility] - Abdominal Complete Survey - [id number] INDICATIONS: abdominal pain, right upper quadrant and and radiating to lower abdomen in response to eating. COMPARISON: None. ------ LIVER: ------ Right Lobe Length: 17.3 cm Echogenicity/Echotexture: Normal Comment: No focal lesion seen. GALLBLADDER: Cholelithiasis: No stones visualized Wall Thickness: 2.0 mm, normal wall thickness Focal Tenderness: Negative sonographic Wright's sign BILIARY TRACT: Intrahepatic Ducts: Normal Extrahepatic Ducts: Normal where seen Common Duct Size: 2.0 mm --------- PANCREAS: --------- Head: Limited visualization due to overlying bowel Tail: Not visualized, obscured by overlying bowel Body: Limited visualization due to overlying bowel ------- SPLEEN: ------- Size (cm) L: 11.4 AP: 6.3 TV: 4.9 Vol (ml): 184.3 Comment: Normal size and appearance. Small splenule seen, measurin.5 x 0.8 x 1.5 cm. RIGHT KIDNEY: Size (cm) L: 12.5 Cortical Thickness: Normal Cortical Echogenicity: Normal Hydronephrosis: No sonographic evidence LEFT KIDNEY: Size (cm) L: 12.0 Cortical Thickness: Normal Cortical Echogenicity: Normal Hydronephrosis: No sonographic evidence ------ AORTA: ------ Measurements (cm): Proximal AP: 2.1 Mid AP: 1.9 Distal AP: 1.6 Comment: Normal in caliber where visualized, segments obscured by overlying bowel. ---- IVC: ---- Normal in caliber where visualized. FLUID COLLECTIONS: No ascites in the imaged upper abdomen. IMPRESSION Poor evaluation of the pancreas due to overlying bowel gas. Otherwise normalabdominal ultrasound. Specifically, normal gallbladder, no cholelithiasis. Nakia Tomlin MD Electronically Signed Final Report 12/27/2017 10:12 am Nathaniel Singh GERALD IMG US GEN ORDERABLE S documented in this encounter Visit Diagnoses Diagnosis Status post bariatric surgery Bariatric surgery status Generalized abdominal pain Abdominal pain, generalized Gastroesophageal reflux disease, esophagitis presence not specified documented in this encounter Care Teams Huc Relationship Specialty Start Date End Date Radhika Xiao APRN [address] [place] [address] PCP - General Family Medicine 03/28/16 documented as of this encounter
--- OUTSIDE RECORDS SUMMARY | 2024-05-25 13:07 | XMS_ITS | Encounter Summary ---
Author Organization [facility] [place] [address] Care Team Providers Care Swimming Pool Plasterer Helper Name Role Phone Radhika Xiao APRN Primary Care Provider [phone] Reason for Visit * Auth/Cert Specialty Diagnoses / Procedures Referred By Contac t Referred To Contact Diagnoses s/p bariatric surgery, history of ulcer, GERD, abdominal pain Procedures PRO UPPER GI ENDOSCOPY, DIAGNOSTIC EGD, UPPER GI ENDOSCOPY Referral ID Status Reason Start Date Expiration Date Visits Re quested Visits Authorized [id number] 1 1 Encounter Details Date Type Department Care Team (Late st Contact Info) Description 01/09/2018 10:10 AM EDT Anesthesia [place] [address] Neelam Escobar MD [facility] [place] [address] Anesthesia Record Procedure Summary Procedure Name Responsible Anesthesiologist Anesthesia Start Time Anesthesia Stop Time EGD WITH BIOPSY (WRVU 2.39) (Trunk) Neelam Escobar MD 01/09/18 1010 01/09/18 1024 Events Date Time Event Comment 01/09/2018 0952 1007 AN Verify 1010 Start 1010 An Start Data 1010 An Induction 1012 Anesthesia Ready 1022 an stop data 1023 Recovery or ICU Handoff Betty ent care was transferred to the destination unit staff after review of the patient's medical history, current anesthetic/surgical status and plan, according to the Provider Handoff Checklist. 1024 Stop Meds Name Total IV Lidocaine 60 mg Propofol 100 mg Propofol INF 400.05 mg Lactated Ringers 250 mL * Agents Name O2 Air N2O * Blood No blood administrations on file. Lines, Drains, and Airways Type Details Placement Removal Incision 05/16/16; abdomen; laparoscopic puncture (trocar sites x 6); 05/14/22 (LDA cleanup utility RA#[id number]); 1715 (LDA cleanup utility RA#[id number]) 05/16/16 0000 by Adele Monroe RN 05/14/22 1715 by Andreina Gomez (RETIRED) Peripheral IV Line - Single Lumen 01/09/18; 0949; metacarpal vein (top of hand), right; [id number] catheter system; 20 gauge; distraction; 01/09/18; 1103 01/09/18 0949 by Elizabeth Gee RN 01/09/18 1103 by Snow Okeefe RN documented in this encounter Social History Tobacco [...] OR Notes * Anesthesia Postprocedure Evaluation - Neelam Escobar MD - 01/09/2018 3:20 PM EDT [place] Department of Anesthesiology Post-procedure Note Patient: Konstantin Hickey Procedure Summary Date Anesthesia Start Anesthesia Stop Room / Location 01/09/18 1010 1024 [facility] ENDO 7 / [facility] ENDOSCOPY Procedure Diagnosis Surgeon Responsible Provider EGD WITH BIOPSY (WRVU 2.49) (N/A Trunk) Generalized abdominal pain; Status post bariatric surgery; Gastroesophageal reflux disease, esophagitis presence not specified (s/p bariatric surgery, history of ulcer, GERD, abdominal pain) Ramón Minaya MD Clark, Jeffrey A, MD All Anesthesia Providers: Anesthesiologist: Neelam Escobar MD TIRE RETREADER: Stephanie Oakley CRNA Most Recent Vitals: 01/09/18 1056 BP: 126/89 Pulse: Resp: 18 SpO2: 99% Pain Patient Location: PACU/SDP Level of Consciousness: Awake and Alert Pain Management: Satisfactory Analgesia PONV: None Cardiovascular Status: At Baseline and Hemodynamically Stable Respiratory Status: At Baseline and Room Air Postoperative Fluid Status: Intravascular EUvolemia Possible Anesthetic Complications: NONE apparent at time of evaluation Final Primary Anesthesia Type: MAC (The anesthetic type performed was the same as planned.) Comments: NEELAM ESCOBAR MD * Anesthesia Preprocedure Evaluation - Neelam Escobar MD - 01/09/2018 9:52 AM EDT Pre-Anesthesia Evaluation for: Konstantin Hickey a 37 y.o. male. Procedure(s): EGD, UPPER GI ENDOSCOPY Patient Active Problem List Diagnosis ??? Health care maintenance ??? Impaired fasting glucose ??? Disorder of iron metabolism ??? Status post bariatric surgery ??? GAYLE (iron deficiency anemia) ??? Depression ??? Nicotine dependence ??? Daytime somnolence ??? Gastroesophageal reflux ??? Allergic rhinitis ??? Pain in right shoulder ??? Low back pain ??? AUSTIN (obstructive sleep apnea) A. PSG 03/29/15 at wt 386#, BMI: [...] 93.3%; < 4 hrs 6.7% ??? HLD (hyperlipidemia) ??? S/P gastric bypass 05/16/[address] [place] for h/o class IV obesity ??? Acrochordon Past Medical History: Diagnosis Date ??? HLD (hyperlipidemia) ??? Morbid obesity ??? AUSTIN (obstructive sleep apnea) Past Surgical History: Procedure Laterality Date ??? PRO COLONOSCOPY, DIAGNOSTIC N/A 04/04/2016 COLONOSCOPY, DIAGNOSTIC performed by Julia Ashraf MD at [facility] ENDOSCOPY ??? PRO LAP GASTRIC BYPASS/ANABELLE-EN-Y N/A 05/16/2016 @LAPAROSCOPIC GASTROPLASTY, performed by Juan [place] MD at [facility] MAIN OR ??? PRO UPPER GI ENDOSCOPY, BIOPSY N/A 04/04/2016 UPPER GASTROINTESTINAL ENDOSCOPY,WITH BIOPSY SINGLE OR MULTIPLE performed by Julia Ashraf MD at [facility] ENDOSCOPY ??? PRO UPPER GI ENDOSCOPY, DIAGNOSTIC N/A 04/04/2016 EGD, UPPER GI ENDOSCOPY performed by Julia Ashraf MD at [facility] ENDOSCOPY ??? PRO UPPER GI ENDOSCOPY, DIAGNOSTIC N/A 05/16/2016 ENDOSCOPY, UPPER GI, DIAGNOSTIC, WITH OR WITHOUT SPECIMENS [facility] [place] [facility] Social History Substance Use Topics ??? Smoking status: Current Every Day Smoker Packs/day: 0.25 Years: 2.00 Types: Cigarettes Last attempt to quit: 12/28/2015 ??? Smokeless tobacco: Never Used Comment: 4 cigarettes a day ??? Alcohol use Yes Comment: special occasions History Drug Use No Allergies Allergen Reactions ??? Other [Unclassified Drug] Itching Erythromycin opthalmic drops Medications: MAR and/or home medications have been reviewed. Physical Exam: Most Recent Vitals: 01/09/18 0948 BP: 117/71 Pulse: 60 SpO2: 98% There is no height or weight on file to calculate BMI. Airway Assessment: Mallampati: II TM distance: >3 FB Neck ROM: full Cardiovascular Assessment: Pulmonary Assessment: Dental Assessment: Misc Assessment: Anesthesia Plan: ASA 2 MAC, with a(n) intravenous induction Region - Other Informed Consent: Anesthetic plan and risks discussed with patient. Plan discussed with TIRE RETREADER. PAT Staff Note documented in this encounter Plan of Treatment Not on file documented as of this encounter Visit Diagnoses Not on filedocumented in this encounter Administered Medications Inactive Administered Medications - up to 3 most recent administrations Medication Order MAR Action Action Date Dose Rate Site lactated Ringers infusion CONTINUOUS PRN, Starting on Brooke 01/09/18 at 1010, Until Brooke 01/09/18 at 1024, Anesthesia Intra-op New Bag 01/09/2018 10:10 AM EDT lidocaine (PF) (XYLOCAINE) 100 mg/5 mL (2 %) injection PRN, Starting on Brooke 01/09/18 at 1010, Until Brooke 01/09/18 at 1024, Anesthesia Intra-op, Routine Given 01/09/2018 10:10 AM EDT 60 mg propofol (DIPRIVAN) 10 mg/mL bolus injection (Anesthesia) PRN, Starting on Brooke 01/09/18 at 1011, Until Brooke 01/09/18 at 1024, Anesthesia Intra-op Given 01/09/2018 10:14 AM EDT 50 mg Given 01/09/2018 10:11 AM EDT 50 mg propofol (DIPRIVAN) infusion CONTINUOUS PRN, Starting on Brooke 01/09/18 at 1011, Until Brooke 01/09/18 at 1024, Anesthesia Intra-op, Routine Rate/Dose Change 01/09/2018 10:17 AM EDT 450 mcg/kg/min 342.9 mL/hr Rate/Dose Change 01/09/2018 10:14 AM EDT 350 mcg/kg/min 26 6.7 mL/hr New Bag 01/09/2018 10:11 AM EDT 250 mcg/kg/min 190.5 mL /hr documented in this encounter Care Teams Swimming Pool Plasterer Helper Relationship Specialty Start Date End Date Radhika Xiao, GERALD [address] [facility] [place] [address] PCP - General Family Medicine 03/28/16 documented as of this encounter
--- OUTSIDE RECORDS SUMMARY | 2024-05-25 13:07 | XMS_ITS | Encounter Summary ---
Author Organization [place] [address] Care Team Providers Care Buffer Inflated Pad Name Role Phone Radhika Xiao APRN Primary Care Provider [phone] Reason for Visit * Auth/Cert Specialty Diagnoses / Procedures Referred By Contac t Referred To Contact Diagnoses s/p bariatric surgery, history of ulcer, GERD, abdominal pain Procedures PRO UPPER GI ENDOSCOPY, DIAGNOSTIC EGD, UPPER GI ENDOSCOPY Referral ID Status Reason Start Date Expiration Date Visits Re quested Visits Authorized [id number] 1 1 Encounter Details Date Type Department Care Team (Latest Contact Info) Description 01/09/2018 8:18 AM EDT - 01/09/2018 11:18 AM EDT Hospital En[place] [address] Ramón Minaya MD [facility] [place] [address] Discharge Disposition: Home Social History Tobacco Use Types Packs/Day Years Used Date Smoking Tobacco: Every Day Cigarettes 0.3 2 Started: 12/27/2013; Last attempted to quit: 12/28/2015 Smokeless Tobacco: Never Tobacco Cessation:Ready to Q uit: Yes; Counseling Given: Yes Comments:4 cigarettes a day Alcohol Use Standard [...] Sign Reading Time Taken Comments Blood Pressure 126/89 01/09/2018 10:56 AM EDT Pulse 60 01/09/2018 9:48 AM EDT Temperature - - Respiratory Rate 18 01/09/2018 10:56 AM EDT Oxygen Saturation 99% 01/09/2018 10:56 AM EDT Inhaled Oxygen Concentration - - Weight 127 kg (280 lb) 01/09/2018 9:48 AM EDT Height 180.3 cm (5' 11) 01/09/2018 9:48 AM EDT Body Mass Index 39.05 01/09/2018 9:48 AM EDT documented in this encounter Medications at Time [...] Associated Diagnosis Comments SURGICAL PATHOLOGY REPORT Routine 01/09/2018 10:24 AM EDT SPECIMEN TO PATHOLOGY Routine 01/09/2018 10:24 AM EDT SPECIMEN TO PATHOLOGY Routine 01/09/2018 10:24 AM EDT EGD WITH BIOPSY (WRVU 2.39) 01/09/2018 10:09 AM EDT Generalized abdominal pain Status post bariatric surgery Gastroesophageal reflux disease, esophagitis presence not specified UPPER GI ENDOSCOPY Routine 01/09/2018 10 :00 AM EDT documented in this encounter Results * Surgical Pathology Report (01/09/2018 10:24 AM EDT) Final Diagnosis [id number] ? Location: 4T; EA07; A The signing pathologist has (i) examined the relevant preparation(s) for the specimen(s) and (ii) rendered or confirmed the diagnosis(es). . ?Surgical Pathology DIAGNOSIS A - Esophagus, ??biopsy: - Squamocolumnar (cardia-type) junctional mucosa with chronic and focal active inflammation. ??There is no evidence of intestinal metaplasia. B - Stomach, ??biopsy: i- Body/fundic-type mucosa, negative for diagnostic abnormality. Electronically signed by: ??Radames Underwood MD Verified: ??01/13/2018 ?Pathologist Performed at: ??-[facility] Dept. of Pathology, [place], [place] CLINICAL INFORMATION Specimen Submitted: A - Esophagus ? connelly ??'s B - Gastric bx 's r/o h pylori Clinical History and Diagnosis: 37 year old male with GERD SPECIMEN PROCESSING A - Labeled/Fixative: Esophagus, question Connelly ?? 's, formalin. Quantity/Size: Three, averaging 0.5 cm. Tissue Description: ??Soft, pink tissues . Sections/Processi ng: (T1) B - Labeled/Fixative: Gastric BX, rule out H. pylori, formalin. Quantity/Size: Single, 0.7 cm. Tissue Description: ??Soft, pink tissue . Sections/Processi ng: (T1) ??sns 01/13/2018 4:46 PM EDT [facility] GI Biopsy 01/09/2018 10:2 4 AM EDT 01/09/2018 10:24 AM EDT GI Biopsy 01/09/2018 10:2 4 AM EDT 01/09/2018 10:24 AM EDT Ramón Minaya MD PATHOLOGY/CYTOLOGY ORDERABLES Performing Organization Address City/[facility]/[place] [address] * Specimen to Pathology (01/09/2018 10:24 AM EDT) AP Specimen 01/09/2018 10:2 4 AM EDT 01/09/2018 1:06 PM EDT Narrative [facility] - 01/09/2018 1:06 PM EDT Specimen requisition ordered. ??Separate Pathology report to follow Resulting Agency Comment Spec In Lab Ramón Minaya MD PATHOLOGY/CYTOLOGY ORDERABLES Performing Organization Address [facility] [place] [address] * Specimen to Pathology (01/09/2018 10:24 AM EDT) AP Specimen 01/09/2018 10:2 4 AM EDT 01/09/2018 1:06 PM EDT Narrative [facility] - 01/09/2018 1:06 PM EDT Specimen requisition ordered. ??Separate Pathology report to follow Resulting Agency Comment Spec In Lab Ramón Minaya MD PATHOLOGY/CYTOLOGY ORDERABLES Performing Organization Address City/[facility] [place] [address] * UPPER GI ENDOSCOPY (01/09/2018 10:00 AM EDT) UPPER GI ENDOSCOPY [facility] Endoscopy Procedure Date: 01/09/2018 10:00 AM ? Patient Name: Konstantin Hickey ? Date of : 1980 ? Age: 37 ? Order #: [id number] ? Instrument Name: [id number] ? Procedure: ? Upper GI endoscopy Indications: ? Epigastric abdominal pain, Assessment ? following Jessica-en-Y gastrojejunostomy Providers: ? Ramón Minaya MD, Fransico ? BERRY Olguin, Hoda Mendoza MD: ?Radhika Xiao MD Medicines: ? Monitored Anesthesia Care Complications: ? No immediate complications. Procedure: ? Pre-Anesthesia Assessment: ? - Prior to the procedure, a History ? and Physical was performed, and ? patient medications and allergies ? were reviewed. The patient is ? competent. The risks and benefits of ? the procedure and the sedation ? options and risks were discussed with ? the patient. All questions were ? answered and informed consent was ? obtained. Patient identification and ? proposed procedure were verified by ? the physician and the nurse in the ? endoscopy suite. Mental Status ? Examination: alert and oriented. ? Airway Examination: normal ? oropharyngeal airway and neck ? mobility. Respiratory Examination: ? clear to auscultation. CV ? Examination: normal. Prophylactic ? Antibiotics: The patient does not ? require prophylactic antibiotics. ? Prior Anticoagulants: The patient has ? taken no previous anticoagulant or ? antiplatelet agents. ASA Grade ? Assessment: II - A patient with mild ? systemic disease. After reviewing the ? risks and benefits, the patient was ? deemed in satisfactory condition to ? undergo the procedure. The anesthesia ? plan was to use monitored anesthesia ? care (MAC). Immediately prior to ? administration of medications, the ? patient was re-assessed for adequacy ? to receive sedatives. The heart rate, ? respiratory rate, oxygen saturations, ? blood pressure, adequacy of pulmonary ? ventilation, and response to care ? were monitored throughout the ? procedure. The physical status of the ? patient was re-assessed after the ? procedure. ? The procedure, indications, benefits, ? risks and alternatives were explained ? to the patient. Specifically ? discussed were potential ? complications including, but not ? limited to, bleeding, perforation, ? infection, missing a cancer, and ? adverse medication reactions. The ? Endoscope was introduced through the ? mouth, and advanced to the efferent ? jejunal loop. The patient tolerated ? the procedure well. The upper GI ? endoscopy was accomplished without ? difficulty. The patient tolerated the ? procedure well. ? Findings: ? There were esophageal mucosal changes suspicious for ? short-segment Connelly's esophagus present in the ? lower third of the esophagus. Mucosa was biopsied ? with a cold forceps for histology. Verification of ? patient identification for the specimen was done. ? Estimated blood loss was minimal. ? Patchy mildly erythematous mucosa without bleeding ? was found in the cardia. Biopsies were taken with a ? cold forceps for histology. Verification of patient ? identification for the specimen was done. Estimated ? blood loss was minimal. ? Evidence of a Jessica-en-Y gastrojejunostomy was found. ? The gastrojejunal anastomosis was characterized by ? healthy appearing mucosa. This was traversed. ? Moderate Sedation: ? Not applicable - See Anesthesia documentation Impression: ?- Esophageal mucosal changes ? 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 Biopsied. ? - Erythematous mucosa in the cardia. ? Biopsied. ? - Jessica-en-Y gastrojejunostomy with ? gastrojejunal anastomosis ? characterized by healthy appearing ? mucosa. Recommendation: ?- Discharge patient to home. ? - Await pathology results. ? - Return to Bariatric clinic as ? previously scheduled. ? Procedure Code(s): ?? --- Professional --- ? 64581, Esophagogastroduoden oscopy, ? flexible, transoral; with biopsy, ? single or multiple Diagnosis Code(s): ?? --- Professional --- ? K22.8, Other specified diseases of ? esophagus ? K31.89, Other diseases of stomach and ? duodenum ? Z98.0, Intestinal bypass and ? anastomosis status ? R10.13, Epigastric pain ? Z09, Encounter for follow-up ? examination after completed treatment ? for conditions other than malignant ? neoplasm ? --- Technical --- ? K22.8, Other specified diseases of ? esophagus ? K31.89, Other diseases of stomach and ? duodenum ? Z98.0, Intestinal bypass and ? anastomosis status ? R10.13, Epigastric pain ? Z09, Encounter for follow-up ? examination after completed treatment ? for conditions other than malignant ? neoplasm CPT copyright 2016 [employer]. All rights reserved. The codes documented in this report are preliminary and upon field service rep review may be revised to meet current compliance requirements. Attending Participation: ? I personally performed the entire procedure. ? _ Ramón Minaya MD 01/09/2018 10:29:07 AM This report has been signed electronically. Number of Addenda: 0 Note Initiated On: 01/09/2018 10:00 AM PROVATION 01/09/2018 10:0 0 AM EDT Radhika Xiao APRN GENERAL SURGICAL ORD ERABLES PROVATION documented in this encounter Visit Diagnoses Not on filedocumented in this encounter Administered Medications Inactive Administered Medications - up to 3 most recent administrations Medication Order MAR Action Action Date Dose Rate Site lactated Ringers infusion 100 mL/hr, Intravenous, CONTINUOUS, Starting on Brooke 01/09/18 at 1015, Until Brooke 01/09/18 at 1318, Endoscopy (Day of Procedure) New Bag 01/09/2018 9:50 AM EDT 100 mL/hr 100 mL/hr documented in this encounter Active and Recently Administered Medications Times are shown in EDT. Continuous Medication Order 01/07/2018 01/08/2018 01/09/2018 lactated Ringers infusion 100 mL/hr, Intravenous, CONTINUOUS, Starting on Brooke 01/09/18 at 1015, Until Brooke 01/09/18 at 1318, Endoscopy (Day of Procedure) 0950 (New Bag - Prov ider: Elizabeth Gee RN) documented in this encounter Care Teams Buffer Inflated Pad Relationship Specialty Start Date End Date Radhika Xiao APRN [address] [place] [address] PCP - General Family Medicine 03/28/16 documented as of this encounter
--- OUTSIDE RECORDS SUMMARY | 2024-05-25 13:07 | XMS_ITS | Encounter Summary ---
[facility] [place] [address] Care Team Providers Care Vice President Consulting Services Name Role Phone Radhika Xiao GERALD Primary Care Provider [phone] Reason for Visit * Reason Comments Follow-up Encounter Details Date Type Department Care Team (Late st Contact Info) Description 11/20/2017 8:30 AM EST Office [place] [address] Bonnie Singh, EXTRACT OPERATOR [facility] DR [facility] [place] [address] [facility] [place] [address] Status post bariatric surgery; Disorder of iron metabolism; Intestinal malabsorption, unspecified type; Health care maintenance; Impaired fasting glucose; Generalized abdominal pain; Gastroesophageal reflux disease, esophagitis presence not specified; Fatigue, unspecified type; Depression, unspecified depression type; Vitamin D deficiency; S/P gastric bypass 05/16/[address] Thomas for h/o class IV obesity; AUSTIN (obstructive sleep apnea); Hyperlipidemia, unspecified hyperlipidemia type; Cigarette nicotine dependence without complication Social History Tobacco Use Types Packs/Day Years [...] Sign Reading Time Taken Comments Blood Pressure 122/64 11/20/2017 7:57 AM EST Pulse 62 11/20/2017 7:57 AM EST Temperature 36.6 ??C (97.8 ??F) 11/20/2017 7:57 AM ES T Respiratory Rate 14 11/20/2017 7:57 AM EST Oxygen Saturation 100% 11/20/2017 7:57 AM EST Inhaled Oxygen Concentration - - Weight 128.9 kg (284 lb 1.6 oz) 11/20/2017 7:57 AM EST Height - - Body Mass Index 39.9 05/22/2017 9:21 AM EDT documented in this encounter Patient Instructions * Patient Instructions* Arabella Watts, RD - 11/20/2017 8:30 AM EST [facility] Admin coordinator Jenny: [phone] Dietitian: [phone] Surgeons/ nurse practitioner: [phone] Nurse line: [phone] Testing: Labwork: Today. Go to [facility], which is 1 flight below the General Surgery Clinic. ?? Please note that labwork results from non-[facility] labs take longer to get results. Please remind the cath lab nurse that certain test tubes need to be protected from light, as indicated on the requisition.It is often difficult to track results done elswhere, and you can expect a processing delay. Havinglabwork done elsewhere makes trending of lab testing difficult. ?? Given the high volume of lab requests done at non-[facility] facilities, copies of labwork are no longer sent, given the significant expenditure of time ordering and copying outside lab results. Copies of the lab results are scanned in your [facility] medical record, and can be viewed under scanned documents. You will receive a letter of the results indicating treatment recommendations, and abnormal labresults will be identified. Please note that you will always receive a letter with lab results and recommendations. Please readthis letter carefully and follow recommendations. The letter also contains information regarding your next lab draw. A copy of your labwork and office visit today is sent to your primary post acute care registered nurse Next visit: Routine visits are done at 4.8,12, 18 and 24 months after surgery, and yearly thereafter. Please call [phone] if you do not receive an appointment by 3-4 weeks prior to the expected visit. Medications: 1. Further recommendations pending labwork. Vitamins: The following vitamins are recommended: ??? Multivitamins with minerals twice daily. ??? Vitamin B12 500 mcg by mouth once daily ??? Calcium: goal is 1200 mg daily - recheck daily calcium intake and use supplements to meet 1200 mg goal. You likely need 600 mg in supplementation. ??? Iron with Vitamin C, 50-66 mg every other day (take iron with vitamin C 250 mg to help with absorption). Or as recommended based on labs. Nutrition recommendations: - Limit intake of trail mix to 1/4 cup daily. - Your Daily Goals: ?? 1,000-1,200 calories per day (300 calories per meal, 100 calories per snack, 1-2 snacks per day) ?? 60 grams of protein per day (20 grams per meal) ?? 48-64 oz of non-caloric and hydrating fluids per day (6-8, 8 oz cups) ?? Do not drink with meals- pushes food through more quickly, can cause upset stomach Activity: ??? Continue to increase walking and stay active over the summer. Your goal is to restart at the gym 2-3 times a week next winter. Alcohol: should be used sparingly, no more [...] 1-2 PM at [facility]- no registration required Nutrition and Activity apps- Baritastic, My Fitness Pal, Lose It, My Plate Internet resources: www.Taggstr www.Realtime Worlds www.bariatriceaMySiteApp.[employer] www.Rolith/blog [facility] facebook page: https://www.facebook.com/[facility] Books & Magazines: - Recipes for Life After Weight Loss Surgery by Nelda Wahl - Shrink Yourself by Dr Aleksandr Arriaza - Eating Well - www.wst.cn - Cooking Light- www.Geosign.[employer] documented in this encounter Progress Notes * Bonnie Singh, EXTRACT OPERATOR - 11/20/2017 8:30 AM EST Reason for visit: Follow up S/P laparoscopic Anabelle-en-Y gastric bypass by Dr. Thomas on 05/16/16. Is struggling with weight loss. He has been experiencing some pins and needles type abdominal pain intermittently, has been worsening over the past 3-4 weeks. It is a burning pain, worse after drinking coffee, worse after eating, tends to radiate across the top of his abdomen and then across the bottom. He has a long history of GERD. He has been taking 20 mg omeprazole but does not seem to be helping, in the past was on 40mg. The pain seems to be happening with more frequency up to 2-3 time a day. No n/v, diarrhea, fevers, He is smoking 4 or so cigarettes a day, trying to quit, trying to wean down. Complications summary: Early None Late None-currently having abdominal pain ? Visits to emergency department or other unplanned visit to a health care facility since last visit?no Changes to health/ evaluations/ social history since last visit: as per updated problem list and e-, is with their 5th child. Compliance with [facility] follow up: good Attendance at [facility] post-operative graduate support group meetings: none Pre-op 03/28/16 Wt (lbs) 408# BMI 57.3 Visit #2 WT: 04/04/16: 403# HT: 5'10.75 Intro: 06/17/2015 ? Post-op ? %EBW lost Supplement compliance Labwork 06/06/2016 361.2# 50.72 19.1 -[place] 1 BID -Fe SO4 325 mg qd --Vitamin C 500 mg qd - ca cit w/vit D 1 chew BID -B12 SL 500 mcg qd ?08/31/2016 ??316.13 ??44.5 ??37.6 ??Good. -MVI 1 tab qd -BA Ca Cit 1 chew BID -B12 SL 500 mcg qd -Ferrous Sulfate 325 mg qd w/vit C 500 mg qd 08/31: Hg 13.6 Hct 40.7 [id number] iron 29 sat 11% B12 1820 Nl B1 fol CMP PTH 55 D 27 prealbumin 17 A1c 5.4 12/26/16 285 40.03 53 -MVI 1 tab qd -BA Ca Citrate 1 chew BID -B12 SL 500 mcg qd -Fe [id number] mg w/vit C 500 mg BID 12/28: [...] iron screen 11/20/2017 284 39.9 54 See compounding scaler note Pending today; lipids, A1C, iron studies, hemagram, CMP, Vit D, B1 B12, folate ? Screening/other: Date?? Evaluation?? Results?? 11/3017 Primary care ?later this month 04/04/16 EGD preop LA Grade C esophagitis; normal area in the distal esophagus; normal stomach and duodenum. Bx: Duodenum: negative; stomach: negative; distal esophagus: mild chronic inflammation. There is no evidence of intestinal metaplasia. 04/04/16 Colonoscopy?? Entire colon normal including TI Never?? DEXA? Problem List: ??? Preoperative Class III obesity, S/P gastric bypass ??? Prediabetes: resolved, HbA1C 5.4 on 08/31/16. Repeated today 11/20/17 ??? Hyperlipidemia, untreated prior to surgery: status unknown-repeat today 11/20/17 ??? Gastroesophageal reflux: denies heartburn, but reports burning pain lower abdomen that is getting worse, goes across abdomen starting at the right of umbilicus and sometimes radiates across lowerabdomen, worse after food, will get u/s and EGD to evaluate ??? Obstructive sleep apnea/ daytime somnolence: Stopped CPAP post surgery, was intolerant had repeat PSG at [facility] in April. PSG 03/29/15 at wt 386#, BMI: 53.86: AHI: 6.5/hr; RDI: 13.3/hr; REM related AHI: 9.3/hr; REM related RDI: 18.7/hr; Sa02 kelsey: 85% on RA 919 consecutive minutes were spent on oxygen saturation <88%); arousal index: 8/hr; PLM index: 17/hr; PLM arousal index: 0.5/hr. ??? Musculoskeletal Issues: improved weight weight loss --Pain in right shoulder -- Left knee pain --Low back pain ??? Iron deficiency anemia, onset preoperatively: resolved, taking ferrous sulfate 325 mg and vitamin C 500 mg daily --Colonoscopy 04/04/16: the entire colon normal including terminal ileum. --Lab 03/30/16: CBC (H/H 12.5/39.3); ferritin 42; iron 42; TIBC 344; iron%12; B12 678; folate 11.7 --Lab 03/30/16: IgA 142; TTg IgA Ab <1.2 --shelter blood donor-double red cell donor, usually every 4 months ??? Psychosocial issues: stable- depression ??? Tobacco dependence: he restarted smoking a few months post surgery. He reports 2 packs of cigarettes a week ??? Allergic rhinitis ??? Acrochordon ?? Past Surgical History: Procedure Laterality Date ??? LAP GASTRIC BYPASS/ANABELLE-EN-Y, @LAPAROSCOPIC GASTROPLASTY, UPPER GI ENDOSCOPY, DIAGNOSTIC, performed by Juan Thomas MD ?? 05/16/2016 ??? PRO COLONOSCOPY, DIAGNOSTIC N/A 04/04/2016 ?? COLONOSCOPY, DIAGNOSTIC performed by Julia Ashraf MD at [facility] ENDOSCOPY ?? at [facility] MAIN OR ??? PRO UPPER GI ENDOSCOPY, BIOPSY N/A 04/04/2016 ?? UPPER GASTROINTESTINAL ENDOSCOPY,WITH BIOPSY SINGLE OR MULTIPLE performed by Julia Ashraf MD at [facility] ENDOSCOPY ??? PRO UPPER GI ENDOSCOPY, DIAGNOSTIC N/A 04/04/2016 ?? EGD, UPPER GI ENDOSCOPY performed by Julia Ashraf MD at [facility] ENDOSCOPY ?? Allergies: NKDA Medications 11/20/17 0802 Medication Sig Taking? buPROPion (WELLBUTRIN XL) 150 mg Tablet Extended Release 24 hr Take 150 mg by mouth daily. Yes CYANOCOBALAMIN/COBAMAMIDE (B12 SL) Place under the tongue daily. Yes ferrous sulfate 325 mg (65 mg iron) Tablet Take 325 mg by mouth daily (with breakfast). In conjunction with Vitamin C 500 mg qd. Yes ascorbic acid, vitamin C, (VITAMIN C) 500 mg Tablet Take 500 mg by mouth daily. Yes MULTIVIT &MINERALS/FERROUS FUM (MULTI VITAMIN ORAL) Take by mouth. Yes omeprazole (PRILOSEC) 40 mg Capsule, Delayed Release(E.C.) Take 1 capsule by mouth daily. Take 30 minutes before breakfast. Subjective. Patient concerns at today's visit: Konstantin returns for routine follow up. Having worsening abdominalpain, experiencing pins and needles type abdominal pain intermittently, has been worsening over the past 3-4 weeks. It is a burning pain, worse after drinking coffee, worse after eating, tends to radiate across the top of his abdomen and then across the bottom. He has a long history of GERD. He has been taking 20 mg omeprazole but does not seem to be helping, in the past was on 40mg. The pain seems to be happening with more frequency up to 2-3 time a day. No n/v, diarrhea, fevers, He is smoking 4 or so cigarettes a day, trying to quit, trying to wean down. Benefits since surgery: is happy about the weight loss and increase activity tolerance, is frustrated with regain, does not like winter and has had decreased activity and increased snacking from boredom. Future goals: resume weight loss, become more active. Bowel regimen: consistent formed bm twice daily. Varies some depending on diet, reports is not a problem. NSAID use: none Dietary history/ exercise/ activity level: See dietitian note. Review of Systems (negative if left blank): Constitutional: [x] Fatigue-works 60-70 hours a week, has 4 children, doesn't get much down time, not enough sleep, is off c pap [] pica [] restless leg Neurologic: [] paresthesias [] memory loss CV: [] treatment for hypertension or taking antihypertensive medication [] treatment for hyperlipidemia Pulmonary: [] sleep apnea symptoms [ ] treatment for AUSTIN, no longer on C pap, was followed by [facility] sleep center GI: [x] GERD-increase omeprazole to 40mg today, u/s, EGD ordered, pt is smoking [] dysphagia [] dumping [] abdominal pain [] hernia [] nausea/vomiting [] blood in stool [] chronic diarrhea/ constipation : Denies urinary issues Skin: [] redundant skin skinfold rashes, denies any problems, some sagging skin but does not botherhim at this point Heme/Lymph: [] excessive bruising [x] blood donor in past year, double red cell donor, typically every 4 months, will not donate until he has labs back. 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 Likes his job but works very long hours Health-related habits: Tobacco: currently smoking, trying to quit, counseled Alcohol: as per RD note, occasional Objective: General: Anurag is an engaged, appropriate 37 y.o. year-old male who appears stated age, NAD. Heart: S1S2 distinct, no extra sounds or murmurs, RRR Lungs: clear all lobes A&P, pattern regular, effort minimal Abdomen: soft, non-tender. Abdominal trocar sites well-healed, without evidence of hernia. Grade 1 abominal pannus Stria extending up to the umbilicus Extremities: no LE edema Vital signs: BP 122/64 Pulse 62 Temp 36.6 ??C (97.8 ??F) (Oral) Resp 14 Wt 128.9 kg (284 lb1.6 oz) SpO2 100% BMI 39.9 kg/m2 Assessment: 1. S/P RNY gastric bypass , with loss of 54 % of excess body weight. Malabsorption, at risk for iron deficiency, vitamin deficiencies. Labs done today, reviewed dietary and supplements indetail with compounding scaler. Will follow up with results and adjust as needed 2. Impaired gluocose: will check A1C today, diet and exercise reviewed, recommend increase exercise, avoid excess carbs 3. Abdominal pain: reviewed with Dr. Minaya, as he has intact gallbladder and history of GERD willget U/S and EGD, to be scheduled, reviewed with patient. 4. Fatigue: will check labs today, recommend he return to sleep center to be sure he does not need c pap, he reports he did follow up at [facility] and reports sleeping well, just doesn't have enough time due to work and family responsibilities to sleep. 5. Depression: does not like winter but feels mood is stable and well controlled on current therapy. 6. History of vitamin D deficiency: will check today, follow up with results, make adjustments as needed. Reviewed red flag sx. Reviewed s/s to seek urgent care, Konstantin verbalizes understanding and is in agreement with plan. Plan: ?? Konstantin was congratulated on ongoing healthy lifestyle efforts ?? As above ?? Next BSP visit: 6 months, sooner if needed. ?? Next labwork: 6 months, sooner if needed ?? Additional vitamin and mineral supplement recommendations (*in addition to usual post surgery supplements, as noted below): will determine after labs back ?? dietary/ exercise recommendations per RD ?? Advised to call if develops unexplained abdominal pain, concerns or questions ?? provided with a July 2013 edition [...] agreement with the plan of care. Konstantin will be advised of lab results via [facility] RECOMMENDED BARIATRIC SURGERY PROGRAM POSTOPERATIVE FOLLOW-UP: Follow [...] If labwork is done by the primary post acute care registered nurse: pleasesend a copy to the Bariatric Surgery Program, General Surgery Clinic, [facility], attention Dorys Rivers APRN. Questions regarding [facility] Bariatric Surgery Program patients: please call Abiodun Rivers APRN at [phone] or [phone] beeper [phone]. E-mail: [email or web address] * Arabella Watts, RD - 11/20/2017 8:30 AM EST Bariatric Surgery Program Nutrition Progress Note Encounter Type: follow up SUBJECTIVE: Topics Discussed/Patient Concerns: ?? Off track due to winter; boredom/less activity. Last summer 248#. ?? Always feeling hungry ?? Larger portions - smaller portions now; was going back for seconds. A couple of weeks ago he started making changes and has since started to lose weight . 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 Lives with girlfriend who is supportive of his interest in surgery. Currently his 2 children and her 2 children are living with them fulltime. Twins age 3, son age 4, daughter age 9. His girlfriend is expecting another child in May. Vision at 2 years post-op: more energy [...] 1st pre-op visit 05/16/16 372.1# E[facility] % Surgery 06/06/16 361.1# 19.1% 50.7 1 month post-op 08/31/16 36.1# 37.6% 44.5 12/28/16 285# 53% 40.0 8 months post-op 05/22/17 269.5# 60% 37.8 1 year post-op 11/20/17 284# 54% 39.9 18 months post-op [place] Body Weight (based on BMI of 25): 174# Excess Weight: 218# 50-70% Excess Weight Loss: 230-285# MEDICATIONS: Vitamin/Mineral Supplements (reported by patient): Supplement Type Brand/Form Dosage/Amount Frequency Comments Multivitamin Men's MVM 1 daily Calcium Calculates dietary sources and feels he's meeting 5809-6859 mg daily Vitamin B12 pill 500 mcg Once daily Iron 325 mg every other day Vitamin C chewable 1000 mg Daily w/iron pill Vitamin D pill 800 IU daily Food Allergies/Intolerances: chicken, bread, peanuts, occ pasta Tracking Intake: no Daily Oral Intake: pt is limited as to what he can bring to his work area. He keeps his food in a locker outside his work area. Breakfast 1.5 cups cottage cheese or 2 scrambled eggs AM Snack Granola bar or cup of mixed nuts and raisins Lunch Whatever is served at work PM Snack Granola bar Dinner 6 oz. Protein, 1 cup vegetables, 1 cup of starch HS Snack cheese Protein/ grams per day: ~80 Calories per day: 1261-1661 Hydrating fluids- oz/ day: 64 oz water daily Soda: none ETOH: occasionally Caffeine: 1-2 cups coffee daily Sweets: Once every 2 weeks Meals per day: 3 ?? Feels full/satisfied after eating: Feels satisfied and then gets hungry ?? Feels hungry []never []sometimes [x]most of the time [] always ?? Drinks with meals: No unless something feels stuck. Waits 20 minutes after a meal to start eating ?? Practices portion control: Yes ?? Spends at least 20 minutes eating each meal: 15-20 minutes per meal ?? Has had dumping syndrome: Foods/Symptoms: ?? In the past month, pt has vomited/regurgitated: rare. If eats too fast or eats too much CHO. ?? Constipation/Diarrhea: None. Exercise: starting to walk more. Next winter plans to go to the gym 2-3 x week ASSESSMENT: Summary of Weight Loss: Patient's percent excess weight loss is 54% which is within the expected post-op bariatric surgery range. Pt with ~14# weight gain since his last visit. Weight gain likely due to decreased activity in winter as well as seconds at dinner and high calorie snacks. Rec pt limit intake of mixed nuts andraisins to 1/4 cup as it can be quite caloric. Pt states he usually eats about a cup. Pt recently ma de some dietary changes and has started to lose weight. Pt is drinking plenty of fluid. He is taking the recommended supplements with the exception of calcium. Encouraged pt to continue to track dietary intake of calcium as I do not think he's meeting the 1200 mg goal on a daily basis. Suggested heconsider taking 600 mg calcium daily. Encouraged pt to continue recently started walking routine. NUTRITION INTERVENTION & MONITORING: ?? Provided support/encouragement and reinforced importance of meeting nutritional goals. ?? Reviewed nutrition and vitamin and mineral supplement recommendations (see patient instructions). ?? Written recommendations provided. Patient agreed with these and verbalized adequate understanding. ?? Evaluation by nurse practitioner today. ?? Handouts provided: One Year and Beyond (revised 12/2013) and Foods to Pack for Traveling. documented in this encounter Plan of Treatment Not on file documented as of this encounter Procedures Procedure Name Priority Date/Time Associated Diagnosis Comments HEMOGRAM Routine 11/20/2017 9:45 AM EST Disorder of iron metabolism Status post bariatric surgery Intestinal malabsorption, unspecified type VITAMIN B1, WHOLE BLOOD Routine 11/20/2017 9:45 AM EST Disorder of iron metabolism Status post bariatric surgery Intestinal malabsorption, unspecified type IRON AND TIBC Routine 11/20/2017 9:45 AM EST Disorder of iron metabolism Status post bariatric surgery Intestinal malabsorption, unspecified type VITAMIN D, 25-HYDROXY Routine 11/20/2017 9:45 AM EST Disorder of iron metabolism Status post bariatric surgery Intestinal malabsorption, unspecified type Vitamin D deficiency PREALBUMIN Routine 11/20/2017 9:45 AM EST Disorder of iron metabolism Status post bariatric surgery Intestinal malabsorption, unspecified type HEMOGLOBIN A1C Routine 11/20/2017 9:45 AM EST Impaired fasting glucose FOLATE, SERUM Routine 11/20/2017 9:45 AM EST Disorder of iron metabolism Status post bariatric surgery Intestinal malabsorption, unspecified type FERRITIN Routine 11/20/2017 9:45 AM EST Disorder of iron metabolism Status post bariatric surgery Intestinal malabsorption, unspecified type VITAMIN B12 Routine 11/20/2017 9:45 AM EST Disorder of iron metabolism Status post bariatric surgery Intestinal malabsorption, unspecified type LIPID PANEL (REFLEX DIRECT LDL) Routine 11/20/2017 9:45 AM EST Health care maintenance Disorder of iron metabolism Fatigue, unspecified type COMPREHENSIVE METABOLIC PANEL Routine 11/20/2017 9:45 AM EST Disorder of iron metabolism Status post bariatric surgery Intestinal malabsorption, unspecified type Fatigue, unspecified type documented in this encounter Results * US [...] 10:12 am) PATIENT INFO: ID #: ? [id number] ?: ??[birth year] (37 yrs) Name: ? KONSTANTIN Ventura KRISTOPHER ?Visit Date: 12/27/2017 09:57 am PERFORMED BY: Performed By: ? Pham Chambers RDMS Attending: ?Sada PAUL, Nakia Erickson Referred By: ?BONNIE SINGH Location: ? [place] SERVICE(S) PROVIDED: ??[facility] - Abdominal Complete Survey - [id number] ?[id number] INDICATIONS: ??abdominal pain, right upper quadrant and [...] 12/27/2017 10:12 am) PATIENT INFO: ID #: [id number] : [birth year] (37 yrs) Name: KONSTANTIN SUMMERS Visit Date: 12/27/2017 09:57 am PERFORMED BY: Performed By: Pham Chambers RDMS Attending: Nakia Tomlin MD Referred By: BONNIE SINGH Location: [place] SERVICE(S) PROVIDED: [facility] - Abdominal Complete Survey - [id number] INDICATIONS: abdominal pain, right upper quadrant and [...] Electronically Signed Final Report 12/27/2017 10:12 am Bonnie Lorenzo Singh APRN IMG US GEN ORDERABLE S * Folate, serum (11/20/2017 9:45 AM EST) Folate 17.1 4.8 - 24.2 ng/mL [facility] Blood specimen (specimen) 11/20/2017 9:45 AM EST 11/20/2017 9:52 AM EST Narrative Resulting Agency Comment Spec In Lab Bonnie Lorenzo Singh APRN CHEMISTRY ORDERABLES Performing Organization Address [facility]/ZIP Co de Phone Number [facility] [place] [address] * (ABNORMAL) Vitamin B12 (11/20/2017 9:45 AM EST) [facility] Signature Vitamin B12 >2,000(H) 232 - 1,245 pg/mL [facility] Comment: Please note: Effective 08/14/2017, the reference interval and the lower limit of detection for Vitamin B12 have been updated due to a new reagent formulation. Blood specimen (specimen) 11/20/2017 9:45 AM EST 11/20/2017 9:52 AM EST Narrative Resulting Agency Comment Spec In Lab Bonnie Lorenzo Singh APRN CHEMISTRY ORDERABLES Performing Organization Address City/[facility]/ZIP Co de Phone Number [facility] [place] [address] * (ABNORMAL) Vitamin B1, whole blood (11/20/2017 9:45 AM EST) Vit B1 Lvl Wb (JANUARY) 191(H) 70 - 180 nmol/L [facility] Comment: ADDITIONAL INFORMATION This test was developed and its performance characteristics determined by [facility] in a manner consistent with CLIA requirements. This test has not been cleared or approved by the U.S. Food and Drug Administration. Test Performed by: [facility] [address] [place] [address] Blood specimen (specimen) 11/20/2017 9:45 AM EST 11/20/2017 12:27 PM EST Narrative Resulting Agency Comment Spec In Lab Bonnie Singh APRN LAB SEND OUT ORDERAB LES Performing Organization Address City/[facility]/ZIP Co de Phone Number [facility] [place] [address] * Vitamin D, 25-Hydroxy (11/20/2017 9:45 AM EST) Vitamin D Total 25 OH 32 30 - 100 ng/mL [facility] Comment: Deficient <10 ng/mL Insufficient 10 to 29 ng/mL Sufficient 30 to 100 ng/mL Potential Intoxication >100 ng/mL According to the US National Osteoporosis Foundation, Vitamin D concentrations >30 ng/mL are sufficient to protect bone health. ??The National Kidney Foundation has similarly stated that patients with Vitamin D concentrations <30ng/mL should be considered to be insufficient or deficient. http://Michael Bieker.[employer]/nkf-guidelines http://Michael Bieker.[employer]/nejm-VitD The IDS iSYS Vitamin D Immunoassay detects both 25-OH Vitamin D2 and 25-OH Vitamin D3, but only a total Vitamin D concentration is reported. Blood specimen (specimen) 11/20/2017 9:45 AM EST 11/20/2017 2:08 PM EST Narrative Resulting Agency Comment Spec In Lab Bonnie Singh APRN CHEMISTRY ORDERABLES Performing Organization Address [facility]/ZIP Co de Phone Number [facility] [place] [address] * Ferritin (11/20/2017 9:45 AM EST) Ferritin 65 30 - 400 ng/mL [facility] Comment: Pediatric reference ranges not verified at [facility], interpret with caution. Reference ranges for females greater than 50 years of age approach values for men, i.e., 30-400 ng/mL. Blood specimen (specimen) 11/20/2017 9:45 AM EST 11/20/2017 9:52 AM EST Narrative Resulting Agency Comment Spec In Lab Bonnie Singh EXTRACT OPERATOR CHEMISTRY ORDERABLES Performing Organization Address City/[facility]/ZIP Co de Phone Number [facility] [place] [address] * Iron and TIBC (11/20/2017 9:45 AM EST) [facility] Iron 83 45 - 160 mcg/dL [facility] TIBC 319 250 - 450 mcg/dL [facility] Iron Saturation 26 20 - 50 % [facility] Blood specimen (specimen) 11/20/2017 9:45 AM EST 11/20/2017 9:53 AM EST Narrative Resulting Agency Comment Spec In Lab Bonnie Singh EXTRACT OPERATOR CHEMISTRY ORDERABLES Performing Organization Address City/[facility]/ZIP Co de Phone Number [facility] [place] [address] * Hemoglobin A1c (11/20/2017 9:45 AM EST) [facility] Hemoglobin A1c 5.1 4.3 - 5.6 % [facility] Comment: Reference Range: 4.3 - 5.6% 5.7 - 6.4% - Increased Risk of Developing Diabetes Mellitus >=6.5% - Consistent with diagnosis of Diabetes Mellitus In the absence of hyperglycemia (i.e. plasma glucose > 200 mg/dL) or classic symptoms of hyperglycemia a repeat measurement of HbA1c should be performed on a separate sample to confirm the diagnosis. Diagnosis and Classification of Diabetes Mellitus, Diabetes Care 2013; 36: Suppl. 1, Z97-14 Estimated Average Glucose 100 mg/dL [facility] Comment: eAG equivalents for HbA1c [...] into estimated average glucose values. ??Diabetes Care 2008:31(8):7313-1877. Blood specimen (specimen) 11/20/2017 9:45 AM EST 11/20/2017 9:52 AM EST Narrative Resulting Agency Comment Spec In Lab Bonnie Singh APRN CHEMISTRY ORDERABLES [facility] [place] [address] * Lipid Panel (11/20/2017 9:45 AM EST) Cholesterol, Total 163 mg/dL [facility] Comment: Lower Risk: <200 mg/dL Average Risk: 200-239 mg/dL Higher Risk: >ap=187 mg/dL Triglyceride 79 mg/dL [facility] Comment: Average Risk/Lower Risk: <150 mg/dL Borderline High Risk: 150-199 mg/dL High Risk: 200-499 mg/dL Very High Risk: >ty=356 mg/dL HDL Cholesterol 43 mg/dL [facility] Comment: Males: ?? Higher Risk: <40 mg/dL Females: ?? HIgher Risk: <50 mg/dL LDL Cholesterol 104 mg/dL [facility] Comment: Lowest Risk: <100 mg/dL Lower Risk: 100-129 mg/dL Borderline High Risk: 130-159 mg/dL High Risk: 160-189 mg/dL Very High Risk: >rg=827 mg/dL Cholesterol/HDL Ratio 3.8 ratio [facility] Lipid Interpretation See Note [facility] Comment: Lipid management should be guided by a patient? s ASCVD risk, goals and preferences. ACC/AHA Guidelines recommend high intensity statin if clinical ASCVD or LDL greater than or equal to 190 mg/dL. http://Michael Bieker.[employer]/FNU-KWJ-Kaxxvajma Adults aged 40-75 with LDL 70-189 mg/dL should have their 10 year ASCVD risk estimated with the ACC/AHA ASCVD risk estimator project manager http://tools.acc.org/KDERF-Dnmy-Bsxngrcwh/ Statin should be discussed if risk greater [...] of ASCVD risk reduction. Blood specimen (specimen) 11/20/2017 9:45 AM EST 11/20/2017 9:53 AM EST Narrative Resulting Agency Comment Spec In Lab Bonnie Singh APRN CHEMISTRY ORDERABLES [facility] [place] [address] * Prealbumin (11/20/2017 9:45 AM EST) Prealbumin 24 20 - 40 mg/dL [facility] Comment: Prealbumin levels are generally lower in the pediatric population; adult concentrations are usually attained near puberty. Blood specimen (specimen) 11/20/2017 9:45 AM EST 11/20/2017 9:52 AM EST Narrative Resulting Agency Comment Spec In Lab Bonnie Singh GERALD CHEMISTRY ORDERABLES [facility] [place] [address] * (ABNORMAL) Comprehensive metabolic panel (non-fasting) (11/20/2017 9:45 AM EST) Glucose 88 65 - 199 mg/dL [facility] Comment:Diabetes: >=200 mg/d L plus symptoms Blood Urea Nitrogen 16 10 - 20 mg/dL [facility] Creatinine 0.95 0.80 - 1.50 mg/dL [facility] Sodium 140 135 - 145 mmol/L [facility] Potassium 4.0 3.5 - 5.0 mmol/L [facility] Comment: Please note: ??Patients with WBC >100,000 may have falsely elevated Potassium levels. ??For accurate Potassium quantification in these patients send serum separator tube (gold top) for subsequent determinations. ??Contact the Clinical Chemistry Laboratory if there are any questions. Chloride 98 98 - 107 mmol/L [facility] Carbon Dioxide 28 22 - 31 mmol/L [facility] Anion Gap 14 5 - 15 mmol/L [facility] Calcium 8.9 8.5 - 10.5 mg/dL [facility] Protein, Total 6.9 6.1 - 8.0 gm/dL [facility] Albumin 4.4 3.2 - 5.2 gm/dL [facility] Aspartate Aminotransferase 41(H) 0 - 39 unit/L [facility] Alanine Aminotransferase 68(H) 0 - 55 unit/L [facility] Alkaline Phosphatase 82 40 - 120 unit/L [facility] Bilirubin, Total 0.2 0.2 - 1.3 mg/dL [facility] Est Glomerular Filtration Rate >60 >=60 [facility] Comment: The reported eGFR should be multiplied by 1.2 for patients. The MDRD is not an appropriate measure of renal function for patients with body mass extremes or in patients with acute kidney failure. http://Redapt/DHnkdep http://Redapt/DHMCnkf Blood specimen (specimen) 11/20/2017 9:45 AM EST 11/20/2017 9:53 AM EST Narrative Resulting Agency Comment Spec In Lab Bonnie Singh APRN CHEMISTRY ORDERABLES Performing Organization Address City/State/[facility] Co de Phone Number [facility] [place] [address] * (ABNORMAL) Hemogram (11/20/2017 9:45 AM EST) White Blood Cell 7.6 4.0 - 9.5 x10(3)/mc L [facility] Red Blood Cell 4.50(L) 4.58 - 5.54 x10(6)/mc L [facility] Hemoglobin 14.1 13.7 - 16.5 gm/dL [facility] Hematocrit 41.7 40.5 - 48.5 % [facility] Mean Cell Volume 92.7 82.9 - 93.1 fL [facility] Mean Cell Hemoglobin 31.3 27.5 - 32.1 pg [facility] Mean Cell Hemoglobin Concentration 33.8 32.0 - 35.7 gm/dL [facility] Platelet 251 145 - 357 x10(3)/mc L [facility] RDW Standard Deviation 39.8 36.0 - 45.0 fL [facility] RDW coefficient of variation 11.7 11.4 - 13.8 % [facility] Mean Platelet Volume 9.9 7.6 - 12.9 fL [facility] NRBC% auto 0.0 % [facility] NRBC Absolute 0.000 0.000 - 0.000 x10(3)/mc L [facility] Blood specimen (specimen) 11/20/2017 9:45 AM EST 11/20/2017 9:52 AM EST Narrative Resulting Agency Comment Spec In Lab Bonnie Lorenzo Singh EXTRACT OPERATOR HEMATOLOGY ORDERABLE S Performing Organization Address City/State/[facility] Co de Phone Number [facility] [place] [address] documented in this encounter Visit Diagnoses Diagnosis Status post bariatric surgery Bariatric surgery status Disorder of iron metabolism Other disorders of iron metabolism Intestinal malabsorption, unspecified type Health care maintenance Unspecified general medical examination Impaired fasting glucose Generalized abdominal pain Abdominal pain, generalized Gastroesophageal reflux disease, esophagitis presence not specified Fatigue, unspecified type Depression, unspecified depression type Vitamin D deficiency Unspecified vitamin D deficiency S/P gastric bypass 05/16/[address] Thomas for h/o class IV obesity Bariatric surgery status [place] (obstructive sleep apnea) Obstructive sleep apnea (adult) (pediatric) Hyperlipidemia, unspecified hyperlipidemia type Cigarette nicotine dependence without complication Tobacco use disorder Status post bariatric surgery Bariatric surgery status Generalized abdominal pain Abdominal pain, generalized Gastroesophageal reflux disease, esophagitis presence not specified documented in this encounter Care Teams Vice President Consulting Services Relationship Specialty Start Date End Date Radhika Xiao APRN [address] [place] [address] PCP - General Family Medicine 03/28/16 documented as of this encounter
--- OUTSIDE RECORDS SUMMARY | 2024-05-25 13:07 | XMS_ITS | Encounter Summary ---
Author Organization [facility] [place] [address] Care Team Providers Care Visual Educator Name Role Phone Radhika Xiao GERALD Primary Care Provider [phone] Reason for Visit * Reason Comments Follow-up Encounter Details Date Type Department Care Team (Late st Contact Info) Description 08/31/2016 8:15 AM EST Office Visit General Surgery at [facility] [place] [address] Rebeca Jiménez, [facility] [place] [address] S/P gastric bypass Social History Tobacco Use [...] Sign Reading Time Taken Comments Blood Pressure 117/67 08/31/2016 8:26 AM EST Pulse 60 08/31/2016 8:26 AM EST Temperature 36.6 ??C (97.9 ??F) 08/31/2016 8:26 AM ES T Respiratory Rate 16 08/31/2016 8:26 AM EST Oxygen Saturation 97% 08/31/2016 8:26 AM EST Inhaled Oxygen Concentration - - Weight 143.7 kg (316 lb 12.8 oz) 08/31/2016 8:26 AM EST Height - - Body Mass Index 44.5 06/06/2016 8:48 AM EDT documented in this encounter Patient Instructions * Patient Instructions* Rebeca Jiménez APRN - 08/31/2016 8:15 AM EST [facility] Admin coordinator Jenny: [phone] Dietitian: [phone] Surgeons/ nurse practitioner: [phone] Nurse line: [phone] Recommendations: 1. Encourage you to work on smoking cessation 2. Follow up with the sleep center for CPAP adjustment and mask Next visit: Routine visits are done at 4.8,12, 18 and 24 months after surgery, and yearly thereafter. Please call [phone] if you do not receive an appointment by 3-4 weeks prior to the expected visit. Medications: 1. Complete current prescription of Omeprazole 40 mg daily 2. Further recommendations pending labwork. 3. Continue taking Ursodiol 300 mg twice a day for the next 3 months Vitamins: The following vitamins are recommended: ??? [...] periods, iron deficiency or anemia. Nutrition recommendations: - Your Daily Goals: ?? [...] risk of alcohol dependence after bariatric surgery. Anti-inflammatory medications such as Advil, Aleve, Excedrin, [...] of every month from 1-2 PM at [facility]- no registration required Internet resources: www.[employer] www.[employer] www.[employer] www.[employer] ([place]) https://www.[address].com/[facility]LEBariatricSurgery Bariatric surgery apps- [facility] Post-freddy Books & Magazines: - Recipes for Life After Weight Loss Surgery by Nelda Wahl - Shrink Yourself by Dr Aleksandr Arriaza - Nutrition Action Health Letter subscribe at [email or web address] - Eating Well - Cooking Light documented in this encounter Progress Notes * Rebeca Jiménez APRN - 08/31/2016 8:15 AM EST Reason for visit: First post-operative check S/P laparoscopic Wild-en-Y gastric bypass by Dr. Thomas on 05/16/16. ?? Complications summary: Early None Late None to date ?? Visits summary: Compliance with [facility] follow up: good Attendance at [facility] post-operative graduate support group meetings: none Pre-op 03/28/16 Wt (lbs) 408# BMI 57.3 Visit #2 WT: 04/04/16: 403# HT: 5'10.75 Intro: 06/17/2015 ?? Post-op ? %EBW lost Supplement compliance Labwork 06/06/2016 361.2# 50.72 19.1 -[place] 1 tablet BID -Ferrous Sulfate 325 mg qd --Vitamin C 500 mg qd -Advantage w/vitamin D 1 chew BID -B12 SL 500 mcg qd ?08/31/2016 ??316.13 ??44.5 ??37.6 ??Good. -MVI 1 tab qd -BA Ca Citrate 1 chew BID -B12 SL 500 mcg qd -Ferrous Sulfate 325 mg qd w/vit C 500 mg qd Next visit with lab: today ?? Screening/other: Date?? Evaluation?? Results?? 2016?? Primary care ? 04/04/16 Colonoscopy?? Entire colon normal including TI Never?? DEXA? Diagnosis ??? Prediabetes: improved. HbA1C 5.4 on 08/31/16. [...] ENDOSCOPY performed by Julia Ashraf MD at [facility] ENDOSCOPY ??? Pro colonoscopy, diagnostic N/A 04/04/2016 COLONOSCOPY, DIAGNOSTIC performed by Julia Ashraf MD at [facility] ENDOSCOPY ??? Pro upper gi endoscopy, biopsy N/A 04/04/2016 UPPER GASTROINTESTINAL ENDOSCOPY,WITH BIOPSY SINGLE OR MULTIPLE performed by Julia Ashraf MD at [facility] ENDOSCOPY ??? Pro lap gastric bypass/wild-en-y N/A 05/16/2016 @LAPAROSCOPIC GASTROPLASTY, performed by Juan Thomas MD at [facility] MAIN OR ??? Pro upper gi endoscopy, diagnostic N/A 05/16/2016 ENDOSCOPY, UPPER GI, DIAGNOSTIC, WITH OR WITHOUT SPECIMENS [facility] Allergies: NKDA Medication Sig ??? CYANOCOBALAMIN/COBAMAMIDE (B12 SL) Place under the tongue daily. ??? CA COMB NO.1/VIT D3/B-6/FA/B12 (VITAMIN D3, CALCIUM CIT-PHOS, ORAL) Take 500 mg by mouth daily. ??? ursodiol (ACTIGALL) 300 mg Capsule Take 1 capsule by mouth 2 times daily for 180 days. Start at2 weeks post op to prevent gallstones. ??? ferrous sulfate 325 mg (65 mg iron) Tablet Take 325 mg by mouth daily (with breakfast). In conjunction with Vitamin C 500 mg qd. ??? ascorbic acid, vitamin C, (VITAMIN C) 500 mg Tablet Take 500 mg by mouth daily. ??? omeprazole (PRILOSEC) 40 mg Capsule, Delayed Release(E.C.) Take 1 capsule by mouth daily. ??? buPROPion (WELLBUTRIN) 100 mg Tablet Take 100 mg by mouth daily. ? ? MULTIVIT &MINERALS/FERROUS FUM (MULTI VITAMIN ORAL) Take by mouth. Subjective. Patient concerns at today's visit: he reports no issues or concerns from a bariatric perspective. He reports feeling great and has more energy then before his surgery. He denies presenting to ER or changes in past medical history. He reports avoiding sweets and chips since he experienced dumping symptoms afterwards. I felt sweaty, vomited and felt sleepy for a few hours. He states that it is not worth eating sweets because of how he feels afterwards. He reports eating carrots when craving something crunchy. He reports no further episodes of dumping since the last two episodes. He reports experiencing food intolerance to chicken, bread and toast. He avoids eating those items. He drinks 168 ounces of water per day. He keeps snack such a tuna or crackers x 4 if he needs a quick snack before his next meal. He reports not tracking his intake but uses small plates and bowls as a means of tracking his portion size. Dietary history: A RD was not available for today's visit. The following history was obtained: 24 hour dietary recall Breakfast 1/2 cup of cottage cheese AM Snack Triple Zero [place]an Yogurt Coconut cream or Banana Cream Lunch 1/2 cup of baked Beans and carrot sticks x 3 PM Snack No snack Dinner Salad, fat free german. Did not eat the mac and cheese HS Snack He reports eating 60-80 grams per day most days. He reports not meeting hs protein intake yesterdaysecondary to being tired from working 12-16 hours 5-6 days per week. Estimated Protein: 60-80 grams (adequate) Hydrating Fluids: 128 ounces Soda: None Caffeine: 8 ounce coffee with cream no sugar Meals: 3/day. Chooses a variety of foods including meat, poultry, eggs, fish, dairy, whole grains, fruits and vegetables. ?? Food Allergies/Intolerances: chicken, bread ?? Feels full/satisfied after eating: yes. I never finish my plate ?? Feels hungry: yes ?? Drinks with meals: no ?? Has had dumping syndrome: yes x 2 Foods/Symptoms: sweets ?? Practices portion control: yes. Uses small plates and bowls ?? Spends at least 20 minutes eating each meal: yes ?? In the past month, pt has vomited/regurgitated: none. Admits to vomiting earlier after surgery. Review of Systems (negative if left blank): Constitutional: [] fatigue [] pica Neurologic: [] paresthesias CV: [] treatment for hypertension or taking antihypertensive medication [ ] treatment for hyperlipidemia Pulmonary: [] sleep apnea symptoms [+] treated for [place]: he reports not using his CPAP machine for the past 3 weeks ago because of the mask not fitting well and settings are too strong. He is planningon scheduling a follow up appointment with the sleep center. GI: [] GERD, dysphagia: to chicken. [+] dumping: refer to HPI [] abdominal pain, hernia [] nausea [] blood in stool [] chronic diarrhea/ constipation DATA POWER CONSULTANT: [] LMP: [] control [] menorrhagia [] menopause Skin: [+] redundant skin: lower abdominal folds and between thighs without rashes. [] chronic rashes Heme/Lymph: [] excessive bruising [] blood donor in past year Psychiatric [] mental health concerns Health-related habits/other: Exercise/activity level: Insanity program for 40 minutes twice a week. Walks 3-4 miles per day at work. Tobacco: restarted a month ago and smoking 4 per day. He is planning on trying to quit in September Alcohol: denies Employment/social: FT at [employer]/ Objective: General: 36 y.o. year-old male looks well. Heart: RRR S1S2. No murmur, gallop or rub appreciated. Lungs: CTA no wheezing Abdomen: soft, non-tender, non-distended. BS+. Trocar sites well-healed, without evidence of hernia. Extremities: no edema. Vital signs: BP 117/67 Pulse 60 Temp 36.6 ??C (97.9 ??F) (Oral) Resp 16 Wt (!) 143.7 kg (316 lb 12.8 oz) SpO2 97% BMI 44.5 kg/m2 Today's lab data: Recent Results (from the past 24 hour(s)) Comprehensive metabolic panel (non-fasting) Result Value Ref Range Glucose Lvl 93 65 - 199 mg/dL BUN 13 10 - 20 mg/dL Creatinine 0.90 0.80 - 1.50 mg/dL Sodium 141 135 - 145 mmol/L Potassium 4.1 3.5 - 5.0 mmol/L Chloride 100 98 - 107 mmol/L CO2 27 22 - 31 mmol/L Anion Gap 14 5 - 15 mmol/L Calcium 9.2 8.5 - 10.5 mg/dL Total Protein 7.0 6.1 - 8.0 gm/dL Albumin 4.3 3.2 - 5.2 gm/dL AST 17 0 - 39 unit/L ALT 18 0 - 55 unit/L Alk Phos 96 40 - 120 unit/L Total Bilirubin 0.4 0.2 - 1.3 mg/dL Bili, Direct 0.1 0.0 - 0.3 mg/dL Estimated GFR >60 >=60 Hemoglobin A1c Result Value Ref Range Hemoglobin A1C 5.4 4.3 - 5.6 % Est Avg Gluc 108 mg/dL PTH Result Value Ref Range PTH 55 15 - 65 pg/mL Hemogram Result Value Ref Range WBC 4.8 4.0 - 9.5 x10(3)/mcL RBC 4.56 (L) 4.58 - 5.54 x10(6)/mcL Hemoglobin 13.6 (L) 13.7 - 16.5 gm/dL Hematocrit 40.7 40.5 - 48.5 % MCV 89.3 82.9 - 93.1 fL MCH 29.8 27.5 - 32.1 pg MCHC 33.4 32.0 - 35.7 gm/dL Platelets 209 145 - 357 x10(3)/mcL RDWSD 44.7 36.0 - 45.0 fL RDWCV 13.6 11.4 - 13.8 % MPV 10.4 7.6 - 12.9 fL nRBC % Auto 0.0 % nRBC Abs Auto 0.000 0.000 - 0.000 x10(3)/mcL Differential, Automated Result Value Ref Range Neutrophils % 62.9 % Neutr Abs (ANC) 3.02 1.70 - 6.10 x10(3)/mcL Lymphocytes % 20.6 % Lymphocytes Abs 1.0 0.9 - 3.2 x10(3)/mcL Monocytes % 11.7 % Monocyte Abs 0.6 0.3 - 0.9 x10(3)/mcL Eosinophils % 4.4 % Eosinophils Abs 0.2 0.0 - 0.4 x10(3)/mcL Basophils % 0.2 % Basophils Abs 0.0 0.0 - 0.1 x10(3)/mcL Immature Gran % 0.20 % Laine Gran Abs 0.01 0.00 - 0.04 x10(3)/mcL Assessment: S/P Wild-en-Y gastric bypass 05/16/16, with loss of 37.6% of excess body weight. Plan: ?? Congratulated Konstantin on his ongoing healthy lifestyle efforts ?? Advised Konstantin to follow up with the sleep center regarding CPAP adjustment and new mask ?? Advised Konstantin to work on smoking cessation and follow up with his primary care provider to discuss treatment options ?? Next BSP follow up: 4 months ?? Next labwork: today ?? Additional vitamin and mineral supplement recommendations (*in addition to routine bariatric supplements, as noted below): increase MVI to 1 tablet BID ?? Advised to call with unexplained abdominal pain, prolonged nausea, vomiting or inability to hydrate, questions or concerns ?? dietary/ exercise recommendations: continue with current exercise regimen and water intake. Continue with current diet but advised Konstantin to always eat a protein with his meals if his prepares a meal that he cannot eat. ?? advised that Ursodiol can be discontinued at 6 months post-operative He was provided with a Bariatric Program Summary report which included the above recommendations, as well as information on vitamin and mineral supplementation, fluids, exercise and support group meetings. He has had an opportunity to have all his questions answered and is in agreement with the plan of care. He is aware that he can call the Bariatric Surgery Program at any time with questions or concerns. Konstantin was advised of lab results via [...] If labwork is done by the primary youth care worker: please send a copy to the Bariatric Surgery Program, General Surgery Clinic, [facility], attention Rebeca Jiménez APRN. Questions regarding [facility] Bariatric Surgery Program patients: please call Rebeca Jiménez APRN at [phone] or [phone] beeper [phone]. E-mail: documented in this encounter Plan of Treatment Not on file documented as of this encounter Visit Diagnoses Diagnosis S/P gastric bypass Bariatric surgery status documented in this encounter Care Teams Visual Educator Relationship Specialty Start Date End Date Radhika Xiao APRN [address] [place] [address] PCP - General Family Medicine 03/28/16 documented as of this encounter
--- OUTSIDE RECORDS SUMMARY | 2024-05-25 13:07 | XMS_ITS | Encounter Summary ---
Author Organization [place] [address] Care Team Providers Care Sinker Puller Name Role Phone Radhika Xiao APRN Primary Care Provider Reason for Visit * Auth/Cert Specialty Diagnoses / Procedures Referred By Contac t Referred To Contact Diagnoses s/p bariatric surgery, history of ulcer, GERD, abdominal pain Procedures PRO UPPER GI ENDOSCOPY, DIAGNOSTIC EGD, UPPER GI ENDOSCOPY Referral ID Status Reason Start Date Expiration Date Visits Re quested Visits Authorized [id number] 1 1 Encounter Details Date Type Department Care Team (Late st Contact Info) Description 01/09/2018 9:30 AM EDT - 01/09/2018 10:00 AM EDT [place] [address] Ramón Minaya MD [facility] [place] [address] EGD WITH BIOPSY (WRVU 2.39) Social History Tobacco Use Types Packs/Day Years [...] Report (01/09/2018 10:24 AM EDT) Final Diagnosis [id number] ? Location: 4T; 07; A The signing pathologist has (i) examined [...] Underwood MD Verified: ??01/13/2018 ?Pathologist Performed at: ??-[facility] Dept. of Pathology, [place], [place] CLINICAL INFORMATION Specimen Submitted: A - [...] ng: (T1) ??sns 01/13/2018 4:[address] [facility] GI Biopsy 01/09/2018 10:2 4 AM EDT 01/09/2018 10:24 AM EDT GI Biopsy 01/09/2018 10:2 4 AM EDT 01/09/2018 10:24 AM EDT Ramón Minaya MD PATHOLOGY/CYTOLOGY ORDERABLES Performing Organization Address City/[facility]/[place] [address] * Specimen to Pathology (01/09/2018 10:24 AM EDT) AP Specimen 01/09/2018 10:2 4 AM EDT 01/09/2018 1:[address] [facility] - 01/09/2018 1:06 PM EDT Specimen requisition ordered. ??Separate Pathology report to follow Resulting Agency Comment Spec In Lab Ramón Minaya MD PATHOLOGY/CYTOLOGY ORDERABLES Performing Organization Address [facility] [place] [address] * Specimen to Pathology (01/09/2018 10:24 AM EDT) AP Specimen 01/09/2018 10:2 4 AM EDT 01/09/2018 1:[address] [facility] - 01/09/2018 1:06 PM EDT Specimen requisition ordered. ??Separate Pathology report to follow Resulting Agency Comment Spec In Lab Ramón Minaya MD PATHOLOGY/CYTOLOGY ORDERABLES Performing Organization Address [facility] [place] [address] * UPPER GI ENDOSCOPY (01/09/2018 10:00 AM EDT) UPPER GI ENDOSCOPY [facility] Endoscopy Procedure Date: 01/09/2018 10:00 AM ? Patient Name: Konstantin Hickey ? Date of : 1980 ? Age: 37 ? Order #: [id number] ? Instrument Name: [id number] ? Procedure: ? Upper GI endoscopy Indications: [...] Procedure Code(s): ?? --- Professional --- ? 86271, Esophagogastroduoden oscopy, ? flexible, transoral; with biopsy, [...] than malignant ? neoplasm CPT copyright 2016 [employer]. All rights reserved. The codes documented in this report are preliminary and upon fountain worker review may be revised to meet current compliance requirements. Attending Participation: ? I personally performed the entire procedure. ? _ Ramón Minaya MD 01/09/2018 10:29:07 AM This report has been signed electronically. Number of Addenda: 0 Note Initiated On: 01/09/2018 10:00 AM PROVATION 01/09/2018 10:0 0 AM EDT Radhika Xiao APRN GENERAL SURGICAL ORD ERABLES PROVATION documented in this encounter Visit Diagnoses Diagnosis Generalized abdominal pain Abdominal pain, generalized Status post bariatric surgery Bariatric surgery status Gastroesophageal reflux disease, esophagitis presence not specified documented in this encounter Administered Medications Inactive [...] 100 mL/hr, Intravenous, CONTINUOUS, Starting on Brooke 18 at 1015, Until Brooke 18 at 1318, Endoscopy (Day of Procedure) 0950 (New Bag - Prov ider: Elizabeth Gee RN) documented in this encounter Care Teams Sinker Puller Relationship Specialty Start Date End Date Radhika Xiao APRN [address] [facility] [place] [address] PCP - General Family Medicine 03/28/16 documented as of this encounter
--- OUTSIDE RECORDS SUMMARY | 2024-05-25 13:07 | XMS_ITS | Encounter Summary ---
[facility] Organization [facility] [place] [address] Care Team Providers Care Countersinker Name Role Phone Radhika Xiao GERALD Primary Care Provider Reason for Visit * Reason Comments Follow-up s/p RNY 05/16/2016, n utrition evaluation, chart review, labs, physical exam, counseling and education Encounter Details Date Type Department Care Team (Late st Contact Info) Description 07/11/2018 10:30 AM EDT Office Visit [place] [address] Bonnie Mckeon, VEHICLE BODY BUILDER [facility] DR [place] [address] [facility] [place] [address] Impaired fasting glucose; Disorder of iron metabolism; Status post bariatric surgery; Intestinal malabsorption, unspecified type; Abdominal pain, epigastric; Anxiety disorder, unspecified type; Vitamin D deficiency; Iron deficiency Social History Tobacco Use Types Packs/Day Years [...] Sign Reading Time Taken Comments Blood Pressure 113/62 07/11/2018 10:40 AM EDT Pulse 53 07/11/2018 10:40 AM EDT Temperature 36.7 ??C (98 ??F) 07/11/2018 10: 40 AM EDT Respiratory Rate 12 07/11/2018 10:4 0 AM EDT Oxygen Saturation 98% 07/11/2018 10: 40 AM EDT Inhaled Oxygen Concentration - - Weight 131.1 kg (289 lb 1.6 oz) 018 10:40 AM EDT Height - - Body Mass Index 40.32 01/09/2018 9:48 AM EDT documented in this encounter Patient Instructions * Patient Instructions* Arabella Watts, RD - 07/11/2018 10:30 AM EDT [facility] customer support executive Afsaneh [phone] and Krissy [phone] Dietitians: [phone] Surgeons/ nurse practitioners: [phone] Nurse line: [phone] Testing: Labwork: Today. Go to [facility], which is 1 flight below the General Surgery Clinic. I will notify you via [facility] regarding your results and recommendations A copy of your labwork and office visit today is sent to your primary director of patient care Next visit: 6 months Routine visits are done at 4.8,12, 18 and 24 months after surgery, and yearly thereafter. Please call [phone] if you do not receive an appointment by 3-4 weeks prior to the expected visit. Medications: 1. Increase omeprazole to 40mg twice a day, half hour before breakfast, half hour before dinner andsee if that helps the intermittent pain. Let me know how that works and let me know if you need a new prescription 2.Further recommendations pending labwork. Referrals: none at this time Vitamins: The following vitamins are recommended: ??? Multivitamins with minerals twice daily. Your multivitamin should have about 18 mg iron. ??? Vitamin B12 500 mcg by mouth once daily ??? Calcium citrate 600 mg with Vitamin D 400 units twice daily (2 pills twice a day or 1 chewable twice a day) ??? Iron with Vitamin C, 50-66 mg once daily (take iron with vitamin C 250 mg to help with absorption) Nutrition recommendations: - Keep up the great changes you've made to get back on track. - If eating for more than 30 minutes make sure you watch your portions. - Your Daily Goals: ?? 1,000-1,200 calories [...] of every month from 1-2 PM at [facility]- no registration required Nutrition and Activity apps- Barilizbeth, My Fitness Pal, Lose It Internet resources: www.ProteoTech wwwMobileSpan www.bariatriceating.com www.Doctor [email or web address].Itouzi.com/blog [facility] facebook page: [email or web address]://www.facebook.[email or web address] Books & Magazines: - Recipes for Life After Weight Loss Surgery by Nelda Wahl - Shrink Yourself by Dr Aleksandr Arriaza - Eating Well - www.Swallow Solutions - Cooking Light- www.Cam[employer].Itouzi.com documented in this encounter Progress Notes * Bonnie Mckeon, GERALD - 07/11/2018 10:30 AM EDT Reason for visit: Follow up S/P laparoscopic Jessica-en-Y gastric bypass, Dr. Thomas on 05/16/16. 2 year post op visit ?? Complications summary: Early None Late intermittent abdominal pain ? Visits to emergency department or other unplanned visit to a health care facility since last visit?no ?? Changes to health/ evaluations/ social history since last visit: as per updated problem list and e-DH. Continues to work very long hours, gets little sleep, 5 young children-ages <1 to 11 years. Compliance with [facility] follow up: good-considering his work schedule he has done well with follow up Attendance at [facility] post-operative graduate support group meetings: none Pre-op 03/28/16 Wt (lbs) 408# BMI 57.3 Visit #2 WT: 04/04/16: 403# HT: 5'10.75 Intro:??06/17/2015 ? Post-op ? %EBW lost Supplement compliance Labwork 06/06/2016 361.2# 50.72 19.1 -[place] 1 ??BID -Fe SO4??325 mg qd --Vitamin C 500 mg qd - ca cit w/vit D 1 chew BID -B12 SL 500 mcg qd ?08/31/2016 ??316.13 ??44.5 ??37.6 ??Good. 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 Screening/other: Date?? Evaluation?? Results?? 06/2018 Primary [...] Konstantin returns for routine follow up. He continues to have intermittent abdominal pain, improved when he increased to 40mg omeprazole daily. He also stopped smoking3 months ago. The pain is no longer burning, does not seem to occur in response to meals, describesas like your muscles feel after a hard ab work out. It comes and goes, it's never too bad its justthere. He also reports he has been struggling with anxiety since the of his 5th child. He had a very hard time returning to work, he was seen by his pcp, he was started on clonidine and wellbutrin was stopped. He also started weekly counseling and that has helped, he is feeling better and more in control. Benefits since surgery: is pleased with weight loss, would like his weight to be around 250, that is where he feels best Future goals: get back on track with weight loss, continue working to manage stress Bowel regimen: 2-3 times a day, soft formed, denies any problems NSAID use: none Dietary history/ exercise/ activity level: See dietitian note. Review of Systems (negative if left blank): Constitutional: [x] fatigue [] pica []restless leg, chronically fatigued, works from 2 am to 2pm daily, gets very little sleep, 4 hours a night typically, at best 6 hours Neurologic: []paresthesias [] memory loss CV: [] treatment for hypertension or taking antihypertensive medication [] treatment for hyperlipidemia Pulmonary: [] sleep apnea symptoms [] treatment for [place]-stopped using c pap shortly after surgery, had a repeat sleep study negative for sleep apnea GI: []GERD []dysphagia [] dumping-continues to have some intermittent abdominal pain, typically midabdomen to epigastric area-improved some with increased PPI, is no longer smoking, pain has changed, feels like sore muscles no longer as sharp, does not keep him from doing normal activities. 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 Objective: General: Konstantin is a pleasant, engaged, appropriate, overweight 38 y.o. year-old male appears stated age, NAD. He is here with his and baby today Heart: S1S2 distinct, no extra sounds or murmurs, RRR Lungs: Clear all lobes A&P, effort minimal, pattern regular Abdomen: soft, non-tender to moderate pressure, no masses, no rebound, +BS. Abdominal trocar sites pale lines, no induration, no erythema Grade <1 abominal pannus Stria extending up to the umbilicus Hooding over the umbilical remnant Extremities: No LE edema, pulses present Vital signs: BP 113/62 Pulse 53 Temp 36.7 ??C (98 ??F) (Oral) Resp 12 Wt 131.1 kg (289 lb 1.6 oz) SpO2 98% BMI 40.32 kg/m?? Today's labs: Recent Results (from the past 72 hour(s)) Folate, serum Result Value Ref Range Folate Lvl 14.4 4.8 - 24.2 ng/mL Vitamin B12 Result Value Ref Range Vitamin B-12 1,042 232 - 1,245 pg/mL Vitamin D, 25-Hydroxy Result Value Ref Range 25-OH Vit D Total 33 30 - 100 ng/mL Ferritin Result Value Ref Range Ferritin 117 30 - 400 ng/mL Iron and TIBC Result Value Ref Range Iron 98 45 - 160 mcg/dL TIBC 298 250 - 450 mcg/dL Iron Saturation 33 20 - 50 % Hemoglobin A1c Result Value Ref Range Hemoglobin A1C 5.2 4.3 - 5.6 % Est Avg Gluc 103 mg/dL Prealbumin Result Value Ref Range Prealbumin 24 20 - 40 mg/dL Comprehensive metabolic panel (non-fasting) Result Value Ref Range Glucose Lvl 86 65 - 199 mg/dL BUN 19 10 - 20 mg/dL Creatinine 1.00 0.80 - 1.50 mg/dL Sodium 141 135 - 145 mmol/L Potassium 4.2 3.5 - 5.0 mmol/L Chloride 101 98 - 107 mmol/L CO2 28 22 - 31 mmol/L Anion Gap 12 5 - 15 mmol/L Calcium 9.7 8.5 - 10.5 mg/dL Total Protein 7.3 6.1 - 8.0 gm/dL Albumin 4.3 3.2 - 5.2 gm/dL AST 27 0 - 39 unit/L ALT 24 0 - 55 unit/L Alk Phos 79 40 - 120 unit/L Total Bilirubin 0.4 0.2 - 1.3 mg/dL eGFR 96 >=60 mL/min/1.73 m?? eGFR 112 >=60 mL/min/1.73 m?? Hemogram Result Value Ref Range WBC 6.7 4.0 - 9.5 x10(3)/mcL RBC 4.56 (L) 4.58 - 5.54 x10(6)/mcL Hemoglobin 13.9 13.7 - 16.5 gm/dL Hematocrit 42.0 40.5 - 48.5 % MCV 92.1 82.9 - 93.1 fL MCH 30.5 27.5 - 32.1 pg MCHC 33.1 32.0 - 35.7 gm/dL Platelets 243 145 - 357 x10(3)/mcL RDWSD 39.8 36.0 - 45.0 fL RDWCV 11.8 11.4 - 13.8 % MPV 10.2 7.6 - 12.9 fL nRBC % Auto 0.0 % nRBC Abs Auto 0.000 0.000 - 0.000 x10(3)/mcL Assessment: S/P RNY , with loss of 48 % of excess body weight. 2 years 2 months post op Encounter Diagnoses Name ??? Impaired fasting glucose A1C good at 5.2 today with a random glucose of 103, likely resolved secondary to bariatric surgery, recommend decrease/eliminate alcohol and processed carbs ??? Disorder of iron metabolism Stable, continue with recommended supplements ??? Status post bariatric surgery Has had some regain, he feels he is getting back on track, his goal is to get down to around 250 and maintain, he will plan to start bringing more vegetables to worksuch as carrots, and avoid going long periods without anything ??? Intestinal malabsorption, unspecified type S/p bariatric surgery, has had some regain, but working on it ??? Abdominal pain, epigastric Will increase omeprazole to 40mg BID as he did have some improvementwhen increased to 40mg daily from 20mg daily, had EGD which showed some chronic inflammation, has stopped smoking again, commended for that and reminded to avoid as this greatly increases his risk ofulcer, he as also been drinking more alcohol, advised to cut back or eliminate at this also increases his risk. Will follow up in a week or 2 to see if he has had any change with increased PPI, if not consider CT to rule out other causes such as internal hernia ??? Anxiety disorder, unspecified type Pt feels he is doing better now in therapy and with change in medication, advised to continue, recommend avoid alcohol due to risk related to s/p bariatric surgery, also advised to avoid driving as his risk of higher blood alcohol increases s/p bariatric surgery. Pt verbalizes understanding. ??? Vitamin D deficiency Level stable-low normal, currently taking 1600 units daily, recommend he increase that to around 3000 units daily ??? Iron deficiency Stable on current therapy Plan: as above ?? Konstantin was congratulated on his ongoing healthy lifestyle efforts, recommend he decrease or eliminate alcohol as he is at increased risk, reviewed risk specific to s/p bariatric surgery, he is 2 year out with some regain and increased alcohol use. He was commended for quitting smoking. ?? E- medical record since last BSP visit reviewed, EGD reviewed in detail with patient and his ?? Next BSP visit: 6 months to help keep him on track, sooner if indicated ?? Next labwork: today and 6 months, sooner if indicated. ?? Additional vitamin and mineral supplement recommendations (*in addition to usual post surgery supplements, as noted below): increase vitamin D to [id number] daily ?? dietary/ exercise recommendations per RD-work on more regular exercise, avoid alcohol ?? Advised to call if develops unexplained abdominal pain, concerns or questions-will increase omeprazole to 40mg twice a day for ongoing abdominal pain that did improve in response to increase in PPI at last visit, if does not improve consider CT ?? Constipation strategies discussed. ?? provided with [...] Konstantin was advised of lab results via [facility] per patient request. RECOMMENDED BARIATRIC SURGERY PROGRAM [...] If labwork is done by the primary director of patient care: pleasesend a copy to the Bariatric Surgery Program, General Surgery Clinic, [facility], Questions regarding [facility] Bariatric Surgery Program patients: please call the Bariatric Surgery Program at [phone] * Arabella Watts RD - 07/11/2018 10:30 AM EDT Bariatric Surgery Program Nutrition Progress Note Encounter Type: follow up SUBJECTIVE: Topics Discussed/Patient Concerns: ?? Still having some pain off/on. ?? Gained up to 300# and is now trying to get back on track. Cutting CHO, portion size, No longer HS snacking. ?? Lowest weight was 248# in May 2017. 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 Lives with his and 5 children (a new born, twins age 4, son age 5, daughter age 10). Vision at 2 years post-op: more energy - run a 5k with his kids, tough mudder or spartan race 1 year post-op. Being involved with kids activities. OBJECTIVE: Date of Bariatric Surgery: 05/16/16 Type of Bariatric Surgery: Laparoscopic Jessica-en-Y Gastric Bypass Weight History: Date Weight (lbs) [...] 07/11/18 289.1# 52% 40.3 2 years post-op [place] Body Weight (based on BMI of 25): 174# Excess Weight: 218# 50-70% Excess Weight Loss: 230-285# MEDICATIONS: Vitamin/Mineral Supplements (reported by patient): Hasn't been taking them for 2 weeks. Stopped allmeds for 2 weeks. Supplement Type Brand/Form Dosage/Amount Frequency Comments Multivitamin Men's MVM 1 daily Calcium None Vitamin B12 pill 500 mcg Once daily Iron 325 mg daily Vitamin C chewable 1000 mg Daily w/iron pill Vitamin D pill 2 x 800 IU daily Food Allergies/Intolerances: bread - limits but can eat if eats slowly, peanuts, occ pasta - if eats too fast Tracking Intake: no Daily Oral Intake: pt is limited as to what he can bring to his work area. He keeps his food in a locker outside his work area. Gets up at 2AM and returns home sometimes at 2:30P but it can be 6-7P as well. Breakfast Steak and onions (~ 1 cup): 2AM AM Snack 3 hard boiled eggs and a banana - 6A Lunch 8 meatballs with cheese - 12PM PM Snack Dinner 2 eggs, homefries and eng muff - 6A HS Snack Protein/ grams per day: 60+ Hydrating fluids- oz/ day: 64 oz Water w/Mios Soda: Occ.now. Was having Diet june Hernandez ETOH: Every other week - 2 beers Caffeine: 2 cups coffee w creamer Sweets: Not since he changed his meals/snacks to get back on track Meals per day: 3 ?? Feels full/satisfied after eating: sometimes ?? Feels hungry []never []sometimes [x]most of the time [] always ?? Drinks with meals: none ?? Practices portion control: sometimes ?? Spends at least 20 minutes eating each meal: yes sometimes grazes on a meal for over an hour ?? Has had dumping syndrome: yes. Foods/Symptoms: ?? In the past month, pt has vomited/regurgitated: None. Still vomits if eats too fast ?? Constipation/Diarrhea: None Exercise: on his feet at work; getting snow shoes this winter; outside with his kids. Would love toget back to the gym but does not have time. Only gets 4 hours of sleep a night as it is. ASSESSMENT: Summary of Weight Loss: Patient's percent excess weight loss is 52% which is within the expected post-op bariatric surgery range. Pt with weight regain since his last visit but he is getting back on track and has lost ~11#.Encouraged him to continue positive changes. Rec not grazing on lunch as it can lead to overeating.Fluid intake is good; reviewed ETOH guidelines and reminded him if he has anything to drink to not drive. Reviewed vitamin and mineral supplementation - rec double checking MVM to make sure it has 18mg iron and to take it twice daily, rec start calcium 600 mg twice daily. Encouraged exercise as time permits. NUTRITION INTERVENTION & MONITORING: ?? Provided support/encouragement [...] Priority Date/Time Associated Diagnosis Comments HEMOGRAM Routine 07/11/2018 12:40 PM EDT Disorder of iron metabolism Status post bariatric surgery Intestinal malabsorption, unspecified type VITAMIN B1, WHOLE BLOOD Routine 07/11/2018 12:40 PM EDT Intestinal malabsorption, unspecified type IRON AND TIBC Routine 07/11/2018 12:40 PM EDT Disorder of iron metabolism Status post bariatric surgery Intestinal malabsorption, unspecified type Iron deficiency VITAMIN A Routine 07/11/2018 12:40 PM EDT Intestinal malabsorption, unspecified type Iron deficiency VITAMIN D, 25-HYDROXY Routine 07/11/2018 12:40 PM EDT Intestinal malabsorption, unspecified type Vitamin D deficiency PREALBUMIN Routine 07/11/2018 12:40 PM EDT Status post bariatric surgery Intestinal malabsorption, unspecified type HEMOGLOBIN A1C Routine 07/11/2018 12:40 PM EDT Impaired fasting glucose Status post bariatric surgery Intestinal malabsorption, unspecified type FOLATE, SERUM Routine 07/11/2018 12:40 PM EDT Intestinal malabsorption, unspecified type FERRITIN Routine 07/11/2018 12:40 PM EDT Disorder of iron metabolism Status post bariatric surgery Intestinal malabsorption, unspecified type Iron deficiency VITAMIN B12 Routine 07/11/2018 12:40 PM EDT Intestinal malabsorption, unspecified type COMPREHENSIVE METABOLIC PANEL Routine 07/11/2018 12:40 PM EDT Status post bariatric surgery Intestinal malabsorption, unspecified type documented in this encounter Results * Folate, serum (07/11/2018 12:40 PM EDT) Folate 14.4 4.8 - 24.2 ng/mL [facility] Blood specimen (specimen) 07/11/2018 12:40 PM EDT 07/11/2018 12:54 PM EDT Narrative Resulting Agency Comment Spec In Lab Bonnie Mckeon VEHICLE BODY BUILDER CHEMISTRY ORDERABLES Performing Organization Address City/[facility]/ZIP Co de Phone Number [facility] [place] [address] * Vitamin B12 (07/11/2018 12:40 PM EDT) Vitamin B12 1,042 232 - 1,245 pg/mL [facility] Blood specimen (specimen) 07/11/2018 12:40 PM EDT 07/11/2018 12:54 PM EDT Narrative Resulting Agency Comment Spec In Lab Bonnie Delgadoe VEHICLE BODY BUILDER CHEMISTRY ORDERABLES Performing Organization Address City/[facility]/ZIP Co de Phone Number [facility] [place] [address] * Vitamin B1, whole blood (07/11/2018 12:40 PM EDT) Vit B1 Lvl Wb (JANUARY) 167 70 - 180 nmol/L [facility] Comment: ADDITIONAL INFORMATION This test was developed and its performance characteristics determined by [facility] in a manner consistent with CLIA requirements. This test has not been cleared or approved by the U.S. Food and Drug Administration. Test Performed by: [facility] [address] [place] [address] Blood specimen (specimen) 07/11/2018 12:40 PM EDT 07/11/2018 1:39 PM EDT Narrative Resulting Agency Comment Spec In Lab Bonnie Flowermonet [facility] SEND OUT ORDERAB LES Performing Organization Address [facility]/ZIP Co de Phone Number [facility] [place] [address] * Vitamin D, 25-Hydroxy (07/11/2018 12:40 PM EDT) Vitamin D Total 25 OH 33 30 - 100 ng/mL [facility] [...] be considered to be insufficient or deficient. http://Metabolomx/nkf-guidelines http://Metabolomx/nejm-VitD The IDS iSYS Vitamin D Immunoassay detects both 25-OH Vitamin D2 and 25-OH Vitamin D3, but only a total Vitamin D concentration is reported. Blood specimen (specimen) 07/11/2018 12:40 PM EDT 07/11/2018 1:47 PM EDT Narrative Resulting Agency Comment Spec In Lab Bonnie Mckeon GERALD CHEMISTRY ORDERABLES Performing Organization Address [facility]/[place] Co de Phone Number [facility] [place] [address] * Vitamin A (07/11/2018 12:40 PM EDT) Vitamin A (JANUARY) 47.1 32.5 - 78.0 mcg/dL [facility] Comment: ADDITIONAL INFORMATION This test was developed and its performance characteristics determined by [facility] in a manner consistent with CLIA requirements. This test has not been cleared or approved by the U.S. Food and Drug Administration. Test Performed by: [facility] [address] [place] [id number] Blood specimen (specimen) 07/11/2018 12:40 PM EDT 07/11/2018 3:11 PM EDT Narrative Resulting Agency Comment Spec In Lab Bonnie Ventura Linda [facility] SEND OUT ORDERAB LES [facility] [place] [address] * Ferritin (07/11/2018 12:40 PM EDT) [facility] Ferritin 117 30 - 400 ng/mL [facility] Comment: Pediatric reference ranges not verified at [facility], interpret with caution. Reference ranges for females greater than 50 years of age approach values for men, i.e., 30-400 ng/mL. Blood specimen (specimen) 07/11/2018 12:40 PM EDT 07/11/2018 12:54 PM EDT Narrative Resulting Agency Comment Spec In Lab Bonnie Ventura Linda VEHICLE BODY BUILDER CHEMISTRY ORDERABLES Performing Organization Address City/[facility]/ZIP Co de Phone Number [facility] [place] [address] * Iron and TIBC (07/11/2018 12:40 PM EDT) [facility] Iron 98 45 - 160 mcg/dL [facility] TIBC 298 250 - 450 mcg/dL [facility] Iron Saturation 33 20 - 50 % [facility] Blood specimen (specimen) 07/11/2018 12:40 PM EDT 07/11/2018 12:54 PM EDT Narrative Resulting Agency Comment Spec In Lab Bonnie Ventura Linda [facility] CHEMISTRY ORDERABLES Performing Organization Address City/[facility]/ZIP Co de Phone Number [facility] [place] [address] * Hemoglobin A1c (07/11/2018 12:40 PM EDT) [facility] Hemoglobin A1c 5.2 4.3 - 5.6 % [facility] [...] 36: Suppl. 1, S67-74 Estimated Average Glucose 103 mg/dL [facility] Comment: eAG [...] into estimated average glucose values. ??Diabetes Care 2008:31(8):1280-0580. Blood specimen (specimen) 07/11/2018 12:40 PM EDT 07/11/2018 12:53 PM EDT Narrative Resulting Agency Comment Spec In Lab Bonnie Mckeon APRN CHEMISTRY ORDERABLES [facility] [place] [address] * Prealbumin (07/11/2018 12:40 PM EDT) Prealbumin 24 20 - 40 mg/dL [facility] Comment: Prealbumin levels are generally lower in the pediatric population; adult concentrations are usually attained near puberty. Blood specimen (specimen) 07/11/2018 12:40 PM EDT 07/11/2018 12:54 PM EDT Narrative Resulting Agency Comment Spec In Lab Bonine Mckeon APRN CHEMISTRY ORDERABLES [facility] [place] [address] * Comprehensive metabolic panel (non-fasting) (07/11/2018 12:40 PM EDT) Glucose 86 65 - 199 mg/dL [facility] Comment:Diabetes: >=200 mg/d L plus symptoms Blood Urea Nitrogen 19 10 - 20 mg/dL [facility] Creatinine 1.00 0.80 - 1.50 mg/dL [facility] Sodium 141 135 - 145 mmol/L [facility] Potassium 4.2 3.5 - 5.0 mmol/L [facility] Comment: Please note: ??Patients with WBC >100,000 may have falsely elevated Potassium levels. ??For accurate Potassium quantification in these patients send serum separator tube (gold top) for subsequent determinations. ??Contact the Clinical Chemistry Laboratory if there are any questions. Chloride 101 98 - 107 mmol/L [facility] Carbon Dioxide 28 22 - 31 mmol/L [facility] Anion Gap 12 5 - 15 mmol/L [facility] Calcium 9.7 8.5 - 10.5 mg/dL [facility] Protein, Total 7.3 6.1 - 8.0 gm/dL [facility] Albumin 4.3 3.2 - 5.2 gm/dL [facility] Aspartate Aminotransferase 27 0 - 39 unit/L [facility] Alanine Aminotransferase 24 0 - 55 unit/L [facility] Alkaline Phosphatase 79 40 - 120 unit/L [facility] Bilirubin, Total 0.4 0.2 - 1.3 mg/dL [facility] Est Glomerular Filtration Rate 96 >=60 mL/min/1. 73 m?? [facility] Comment: The eGFR was calculated using the CKD-EPI equation. As with all creatinine based estimates of kidney function, eGFR values calculated with the CKD-EPI equation are not accurate in patients with acute kidney failure, extremes of body mass or the acutely ill. [email or web address]/[facility] BUFFALOnkf eGFR 112 >=60 mL/min/1. 73 m?? [facility] Comment: The eGFR was calculated using the CKD-EPI equation. As with all creatinine based estimates of kidney function, eGFR values calculated with the CKD-EPI equation are not accurate in patients with acute kidney failure, extremes of body mass or the acutely ill. [email or web address]/[facility] BUFFALOnkf Blood specimen (specimen) 07/11/2018 12:40 PM EDT 07/11/2018 12:54 PM EDT Narrative Resulting Agency Comment Spec In Lab Bonnie Mckeon APRN CHEMISTRY ORDERABLES [facility] [place] [place] [address] * (ABNORMAL) Hemogram (07/11/2018 12:40 PM EDT) White Blood Cell 6.7 4.0 - 9.5 x10(3)/mc L [facility] Red Blood Cell 4.56(L) 4.58 - 5.54 x10(6)/mc L [facility] Hemoglobin 13.9 13.7 - 16.5 gm/dL [facility] Hematocrit 42.0 40.5 - 48.5 % [facility] Mean Cell Volume 92.1 82.9 - 93.1 fL [facility] Mean Cell Hemoglobin 30.5 27.5 - 32.1 pg [facility] Mean Cell Hemoglobin Concentration 33.1 32.0 - 35.7 gm/dL [facility] Platelet 243 145 - 357 x10(3)/mc L [facility] RDW Standard Deviation 39.8 36.0 - 45.0 [facility] RDW coefficient of variation 11.8 11.4 - 13.8 % [facility] Mean Platelet Volume 10.2 7.6 - 12.9 [facility] NRBC% auto 0.0 % [facility] NRBC Absolute 0.000 0.000 - 0.000 x10(3)/mc L [facility] Blood specimen (specimen) 07/11/2018 12:40 PM EDT 07/11/2018 12:54 PM EDT Narrative Resulting Agency Comment Spec In Lab Bonnie Mckeon APRN HEMATOLOGY ORDERABLE S [facility] [place] [phone] documented in this encounter Visit Diagnoses Diagnosis Impaired fasting glucose 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
--- OUTSIDE RECORDS SUMMARY | 2024-05-25 13:07 | XMS_ITS | Encounter Summary ---
Author Organization [facility] [place] [address] Care Team Providers Care Office Technology Professor Name Role Phone Radhika Xiao GERALD Primary Care Provider [phone] Encounter Details Date Type Department Care Team (Late st Contact Info) Description 09/03/2016 Orders Only General Surgery at [facility] [address] Rebeca Jiménez [employer] SUPERVISOR [facility] [place] [id number] Status post bariatric surgery; Intestinal malabsorption, unspecified [...] documented as of this encounter Results * (ABNORMAL) Vitamin B1, whole blood (12/28/2016 12:01 PM EDT) Vit B1 Lvl Wb (JANUARY) 194(H) 70 - 180 nmol/L [facility] Comment: ADDITIONAL INFORMATION This test was developed and its performance characteristics determined by [facility] in a manner consistent with CLIA requirements. This test has not been cleared or approved by the U.S. Food and Drug Administration. Test Performed by: [facility] - [address] [address] Blood specimen (specimen) 12/28/2016 12:01 PM EDT 12/28/2016 2:00 PM EDT Narrative Resulting Agency Comment Spec In Lab Juan Thomas MD LAB SEND OUT ORDERAB LES [facility] [place] [address] * Comprehensive metabolic panel (non-fasting) (12/28/2016 12:01 PM EDT) Glucose 109 65 - 199 mg/dL [facility] Comment:Diabetes: >=200 mg/d L plus symptoms Blood Urea Nitrogen 16 10 - 20 mg/dL [facility] Creatinine 0.87 0.80 - 1.50 mg/dL [facility] Comment: Please note that the pediatric reference intervals supplied above were not validated at [facility]. Results from pediatric patients should be interpreted [...] LABORATORY Est Glomerular Filtration Rate >60 >=60 [facility] Comment: This estimated GFR [...] the following links into your internet browser. [email or web address] Blood specimen (specimen) 12/28/2016 12:01 PM EDT 12/28/2016 12:11 PM EDT Narrative Resulting Agency Comment Spec In Lab Juan Thomas MD CHEMISTRY ORDERABLES [facility] [place] [address] * Prealbumin (12/28/2016 12:01 PM EDT) Prealbumin 20 20 - 40 mg/dL [facility] Comment: Prealbumin levels are generally lower in the pediatric population; adult concentrations are usually attained near puberty. Blood specimen (specimen) 12/28/2016 12:01 PM EDT 12/28/2016 12:11 PM EDT Narrative Resulting Agency Comment Spec In Lab Juan Thomas MD CHEMISTRY ORDERABLES Performing Organization Address City/[facility]/ZIP Co de Phone Number [facility] [place] [address] * Iron and TIBC (12/28/2016 12:01 PM EDT) Iron 84 45 - 160 mcg/dL [facility] TIBC 300 250 - 450 mcg/dL [facility] Iron Saturation 28 20 - 50 % [facility] Blood specimen (specimen) 12/28/2016 12:01 PM EDT 12/28/2016 12:11 PM EDT Narrative Resulting Agency Comment Spec In Lab Juan Thomas MD CHEMISTRY ORDERABLES Performing Organization Address [facility] Co de Phone Number [facility] [place] [address] * Ferritin (12/28/2016 12:01 PM EDT) Ferritin 146 30 - 400 ng/mL [facility] Comment: Pediatric reference ranges not verified at [facility], interpret with caution. Reference ranges for females greater than 50 years of age approach values for men, i.e., 30-400 ng/mL. Blood specimen (specimen) 12/28/2016 12:01 PM EDT 12/28/2016 12:11 PM EDT Narrative Resulting Agency Comment Spec In Lab Juan Thomas MD CHEMISTRY ORDERABLES Performing Organization Address City/[facility]/ZIP Co de Phone Number [facility] [place] [address] * Folate, serum (12/28/2016 12:01 PM EDT) Folate 16.5 4.8 - 24.2 ng/mL [facility] Blood specimen (specimen) 12/28/2016 12:01 PM EDT 12/28/2016 12:11 PM EDT Narrative Resulting Agency Comment Spec In Lab Juan Thomas MD CHEMISTRY ORDERABLES Performing Organization Address City/[facility]/ZIP Co de Phone Number [facility] [place] [address] * (ABNORMAL) Vitamin B12 (12/28/2016 12:01 PM EDT) Vitamin B12 >2,000(H) 207 - 974 pg/mL [facility] Blood specimen (specimen) 12/28/2016 12:01 PM EDT 12/28/2016 12:11 PM EDT Narrative Resulting Agency Comment Spec In Lab Juan Thomas MD CHEMISTRY ORDERABLES Performing Organization Address [facility] Co de Phone Number [facility] [place] [address] * PTH (12/28/2016 12:01 PM EDT) Parathyroid Hormone 39 15 - 65 pg/mL [facility] Blood specimen (specimen) 12/28/2016 12:01 PM EDT 12/28/2016 12:11 PM EDT Narrative Resulting Agency Comment Spec In Lab Juan Thomas MD CHEMISTRY ORDERABLES Performing Organization Address [facility] Co de Phone Number [facility] [place] [address] * Vitamin D, 25-Hydroxy (12/28/2016 12:01 PM [...] be considered to be insufficient or deficient. [email or web address] STIGLERVitD The [employer] Vitamin D Immunoassay detects both 25-OH Vitamin D2 and 25-OH Vitamin D3, but only a total Vitamin D concentration is reported. Blood specimen (specimen) 12/28/2016 12:01 PM EDT 12/28/2016 1:52 PM EDT Narrative Resulting Agency Comment Spec In Lab Juan Thomas MD CHEMISTRY ORDERABLES Performing Organization Address City/[facility] Co de Phone Number [facility] [place] [address] documented in this encounter Visit Diagnoses Diagnosis Status post bariatric surgery Bariatric surgery status Intestinal malabsorption, unspecified type Vitamin D deficiency Unspecified vitamin D deficiency Iron deficiency anemia, unspecified iron deficiency anemia type documented in this encounter Care Teams Office Technology Professor Relationship Specialty Start Date End Date Radhika Xiao, GERALD [address] [place] [address] PCP - General Family Medicine 03/28/16 documented as of this encounter
--- OUTSIDE RECORDS SUMMARY | 2024-05-25 13:07 | XMS_ITS | Encounter Summary ---
[place] [address] Care Team Providers Care Program Evaluator Name Role Phone Radhika Xiao APRN Primary Care Provider Encounter Details Date Type Department Care Team (Late st Contact Info) Description 2016 Telephone [place] [phone] Karime Hinojosa, RN Social History Tobacco Use Types Packs/Day Years [...] encounter Miscellaneous Notes * Telephone Encounter - Karime Hinojosa RN - 2016 2:01 PM EDT S/P sleeve gastrectomy, [place] [facility] [place] Note ?? Patient Name: Konstantin Hickey : [id number] MR#: [id number] ?? Case Date: 05/16/2016 ?? Surgeon: Surgeon(s) and Role: * Juan Thomas MD - Primary * Mami Izaguirre MD - Resident-Surgeon Orestes ?? Preoperative diagnosis: OBESITY ?? Postoperative diagnosis: OBESITY ?? Procedure(s): @LAPAROSCOPIC GASTROPLASTY, ENDOSCOPY, UPPER GI, DIAGNOSTIC, WITH OR WITHOUT SPECIMENS ?? Anesthesia: General ?? Estimated Blood Loss: Discharged on PO Day #: 2 Issues during hospitalization: none Today's phone discussion took place with patient, Karime Hinojosa RN Billy Hickey was called via phone for post discharge follow up. Diet: stage:11 Fluids 70 oz plus Protein 60-70 gms Other: Nausea/ vomiting: denies Urination: adequate, no difficulties Bowels: Q day Activity level: increasing his activity , out on his motorcycle today Pain level, analgesia requirements: non needed Any significant changes to comorbidites/ medications (ex DM, HTN): Medications: Currently crushing or taking liquid form of medications, as appropriate: yes Taking ulcer prevention medication: omeprazole 40 mg day Taking Ursodiol (if appropriate): starts next week VTE prophylaxis: enoxaparin: 40mg /0.4 ml SQ BID Follow up: PCP appointment: Has already seen his PCP all is great!! at one month, as scheduled with surgeon and RD Patient questions: none doing really well sounds really happy, pts Birthday today. Recommendations: continue on this course. documented in this encounter Plan of Treatment Not on file documented as of this encounter Visit Diagnoses Not on filedocumented in this encounter Care Teams Program Evaluator Relationship Specialty Start Date End Date Radhika Xiao, GERALD [address] [place] [address] PCP - General Family Medicine 03/28/16 documented as of this encounter
--- OUTSIDE RECORDS SUMMARY | 2024-05-25 13:07 | XMS_ITS | Encounter Summary ---
Author Organization [facility] [place] [address] Care Team Providers Care Toll Bridge Operator Name Role Phone Radhika Xiao APRN Primary Care Provider Reason for Visit * Reason Comments Medication Refill Encounter Details Date Type Department Care Team (Late st Contact Info) Description 10/06/2017 [place] [address] Dorys Rivers APRN [facility] [place] [address] Social History Tobacco Use Types Packs/Day Years [...] on filedocumented in this encounter Care Teams Toll Bridge Operator Relationship Specialty Start Date End Date Radhika Xiao APRN [address] [place] [address] PCP - General Family Medicine 03/28/16 documented as of this encounter
--- OUTSIDE RECORDS SUMMARY | 2024-05-25 13:07 | XMS_ITS | Encounter Summary ---
Author Organization [facility] [place] [address] Care Team Providers Care Sap Business Intelligence Consultant Name Role Phone Radhika Xiao GERALD Primary Care Provider [phone] Reason for Visit * Reason Comments Follow-up S/P gastric bypass Encounter Details Date Type Department Care Team (Late st Contact Info) Description 05/22/2017 9:30 AM EDT Office [place] [address] Dorys Rivers, SOX ANALYST [facility] [place] [address] Arabella Watts, RD [facility] [place] [address] Disorder of iron metabolism; Status post bariatric [...] Sign Reading Time Taken Comments Blood Pressure 107/59 05/22/2017 9:21 AM EDT Pulse 63 05/22/2017 9:21 AM EDT Temperature - - Respiratory Rate 16 05/22/2017 9:21 AM EDT Oxygen Saturation 99% 05/22/2017 9:21 AM EDT Inhaled Oxygen Concentration - - Weight 122.2 kg (269 lb 8 oz) 05/22/2017 9:21 AM EDT Height 179.7 cm (5' 10.75) 05/22/2017 9:21 AM E DT Body Mass Index 37.85 05/22/2017 9:21 AM EDT documented in this encounter Patient Instructions * Patient Instructions* Arabella Watts, RD - 05/22/2017 9:30 AM EDT [facility] Admin coordinator Jenny: [phone] Dietitian: [phone] Surgeons/ nurse practitioner: [phone] Nurse line: [phone] Testing: Labwork: Today. Go to [facility], which is 1 flight below the General Surgery Clinic. Please note that you will always receive a letter with lab results and recommendations. Please readthis letter carefully and follow recommendations. The letter also contains information regarding your next lab draw. A copy of your labwork and office visit today is sent to your primary animal caretaker supervisor Next visit: November Routine visits are done at 4.8,12, 18 and 24 months after surgery, and yearly thereafter. Please call [phone] if you do not receive an appointment by 3-4 weeks prior to the expected visit. Medications: recommendations pending labwork. Vitamins: The following vitamins are recommended: ??? Multivitamins with minerals twice daily- needs to be an under 50 multivitamin that contains iron. ??? Vitamin B12 500 mcg by mouth once daily ??? Calcium citrate 600 mg with Vitamin D 400 units twice daily - or 3473-2253 mg via dietary sources. Consider having 1 calcium citrate chew daily to be sure you are meeting calcium needs. ??? Iron with Vitamin C, 50-66 mg once daily (take iron with vitamin C 250 mg to help with absorption). Nutrition recommendations: - Your Daily Goals: ?? [...] can cause upset stomach Activity: ??? Continue regular activity. Alcohol: should be used sparingly, no more [...] of every month from 1-[address] [facility]- no registration required Nutrition and Activity apps- Baritastic, My Fitness Pal, Lose It, My Plate Internet resources: www.Conatix www.Mojix www.[employer].MediKeeper www.DIIME.MediKeeper/blog [facility] facebook page: https://www.facebook.com/[facility] CITY[facility]ariatricSurgery Books & Magazines: - Recipes for Life After Weight Loss Surgery by Nelda Wahl - Shrink Yourself by Dr Aleksandr Arriaza - Eating Well - Cooking Light documented in this encounter Progress Notes * Dorys Rivers - 05/22/2017 9:30 AM EDT Reason for visit: Follow up S/P laparoscopic Anabelle-en-Y gastric bypass by Dr. Thomas on 05/16/16. ? Complications summary: Early None Late None ? Visits summary: Compliance with BSP follow up: good Attendance at [facility] post-operative graduate support group meetings: none Pre-op 03/28/16 Wt (lbs) 408# BMI 57.3 Visit #2 WT: 04/04/16: 403# HT: 5'10.75 Intro: 06/17/2015 ? Post-op ? %EBW lost Supplement compliance Labwork 06/06/2016 361.2# 50.72 19.1 -[place] 1 BID -Fe SO4 325 mg qd --Vitamin C 500 mg qd - ca cit w/vit D 1 chew BID -B12 SL 500 mcg qd ?08/31/2016 ??316.13 ??44.5 ??37.6 ??Good. -MVI 1 tab qd -BA Ca Cit 1 chew BID -B12 SL 500 mcg qd -Ferrous Sulfate 325 mg qd w/vit C 500 mg qd 08/31: Hg 13.6 Hct 40.7 [id number] iron 29 sat 11% B12 1820 Nl B1 fol CMP PTH 55 D 27 prealbumin 17 A1c 5.4 12/26/16 285 40.03 53 -MVI 1 tab qd -BA Ca Citrate 1 chew BID -B12 SL 500 mcg qd -Fe [id number] mg w/vit C 500 mg BID 12/28: [...] 37%. Nl CMP D 33 prealbumin 22 Next visit: November- iron screen ? Screening/other: Date?? Evaluation?? Results?? 11/3016 Primary care ? 04/04/16 EGD preop [place] Grade C esophagitis; normal area in the distal esophagus; normal stomach and duodenum. Bx: Duodenum: negative; stomach: negative; distal esophagus: mild chronic inflammation. There is no evidence of intestinal metaplasia. 04/04/16 Colonoscopy?? Entire colon normal including TI Never?? DEXA? Problem List: ??? Preoperative Class III obesity, S/P gastric bypass ??? Prediabetes: resolved, HbA1C 5.4 on 08/31/16. ??? Hyperlipidemia, untreated prior to surgery: status unknown ??? Gastroesophageal reflux: denies heartburn, but reports burning pain lower abdomen ??? Obstructive sleep apnea/ daytime somnolence: Stopped CPAP post surgery, was intolerant had repeat PSG at [facility] in April. PSG 03/29/15 at wt 386#, BMI: 53.86: AHI: 6.5/hr; RDI: 13.3/hr; REM related AHI: 9.3/hr; REM related RDI: 18.7/hr; Sa02 kelsey: 85% on RA 919 consecutive minutes were spent on oxygen saturation <88%); arousal index: 8/hr; PLM index: 17/hr; PLM arousal index: 0.5/hr. ??? Musculoskeletal Issues: improved weight weight loss --Pain in right shoulder -- Left knee pain --Low back pain --Plantar fasciitis of R foot ??? Iron deficiency anemia, onset preoperatively: resolved, taking ferrous sulfate 325 mg and vitamin C 500 mg daily --Colonoscopy 04/04/16: the entire colon normal including terminal ileum. --Lab 03/30/16: CBC (H/H 12.5/39.3); ferritin 42; iron 42; TIBC 344; iron%12; B12 678; folate 11.7 --Lab 03/30/16: IgA 142; TTg IgA Ab <1.2 --USP blood donor ??? Psychosocial issues: stable, wellbutrin increased to 150 mg since last visit - depression ??? Tobacco dependence: he restarted smoking a few months post surgery. He reports 2 packs of cigarettes a week ??? Allergic rhinitis ??? Acrochordon Past Surgical History: Procedure Laterality Date ??? LAP GASTRIC BYPASS/ANABELLE-EN-Y, @LAPAROSCOPIC GASTROPLASTY, UPPER GI ENDOSCOPY, DIAGNOSTIC, performed by Juan Thomas MD 05/16/2016 ??? PRO COLONOSCOPY, DIAGNOSTIC N/A 04/04/2016 COLONOSCOPY, DIAGNOSTIC performed by Julia Ashraf MD at [facility] ENDOSCOPY at [facility] MAIN OR ??? PRO UPPER GI ENDOSCOPY, BIOPSY N/A 04/04/2016 UPPER GASTROINTESTINAL ENDOSCOPY,WITH BIOPSY SINGLE OR MULTIPLE performed by Julia Ashraf MD at [facility] ENDOSCOPY ??? PRO UPPER GI ENDOSCOPY, DIAGNOSTIC N/A 04/04/2016 EGD, UPPER GI ENDOSCOPY performed by Julia Ashraf MD at [facility] ENDOSCOPY Allergies: NKDA Medications 05/22/17 1024 Medication Sig Taking? buPROPion (WELLBUTRIN XL) 150 [...] (MULTI VITAMIN ORAL) Take by mouth. Yes Changes to health/ evaluations/ social history since last visit: as per updated problem list. Subjective. Patient concerns at today's visit: Konstantin returns for routine follow up at 1 year post surgery. He is feeling well overall and is very active He continues to smoke, reports due to stress of upcoming wedding, staes he will quit after the wedding. He reports some burning in low abdomen a few times a week, mostly occurs after eating, treated with Tums. He denies NSAID use, has 1 alcoholic beverage amonth. He is a regular double red cell blood donor Bowel regimen: no issues Dietary history/ exercise/ activity level: See dietitian note. Review of Systems (negative if left blank): Constitutional: [+] Fatigue sleeping 4-5 hours a night [] pica Neurologic: [] paresthesias [] memory loss CV: [] treatment for hypertension or taking antihypertensive medication [] treatment for hyperlipidemia Pulmonary: [] sleep apnea symptoms [ ] treatment for [place] GI: [] GERD [] dysphagia [] dumping [+] abdominal pain- as noted above [] hernia [] nausea/vomiting [] blood in stool [] chronic diarrhea/ constipation Skin: [] redundant skin or skinfold rashes Heme/Lymph: [] excessive bruising [] blood donor in past year Psychiatric [] mental health concerns 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 year-old male looks well. Heart: RRR Lungs: CTA bilaterally without wheezing Abdomen: soft, non-tender. Abdominal trocar sites well-healed, without evidence of hernia. Extremities: no edema Vital signs: BP 107/59 Pulse 63 Resp 16 Ht 179.7 cm (5' 10.75) Wt (!) 122.2 kg (269 lb 8 oz) SpO2 99% BMI 37.85 kg/m2 Results for KONSTANTIN HICKEY ( ) Ref. Range 05/22/2017 10:53 WBC Latest Ref Range: 4.0 - 9.5 x10(3)/mcL 9.4 RBC Latest Ref Range: 4.58 - 5.54 x10(6)/mcL 4.81 Hemoglobin Latest Ref Range: 13.7 - 16.5 gm/dL 15.2 Hematocrit Latest Ref Range: 40.5 - 48.5 % 43.8 MCV Latest Ref Range: 82.9 - 93.1 fL 91.1 MCH Latest Ref Range: 27.5 - 32.1 pg 31.6 MCHC Latest Ref Range: 32.0 - 35.7 gm/dL 34.7 RDWSD Latest Ref Range: 36.0 - 45.0 fL 39.7 RDWCV Latest Ref Range: 11.4 - 13.8 % 11.8 Platelets Latest Ref Range: 145 - 357 x10(3)/mcL 248 MPV Latest Ref Range: 7.6 - 12.9 fL 10.7 nRBC % Auto Latest Units: % 0.0 nRBC Abs Auto Latest Ref Range: 0.000 - 0.000 x10(3)/mcL 0.000 Total Protein Latest Ref Range: 6.1 - 8.0 gm/dL 7.0 Albumin Latest Ref Range: 3.2 - 5.2 gm/dL 4.3 Total Bilirubin Latest Ref Range: 0.2 - 1.3 mg/dL 0.3 Bili, Direct Latest Ref Range: 0.0 - 0.3 mg/dL 0.1 Alk Phos Latest Ref Range: 40 - 120 unit/L 83 AST Latest Ref Range: 0 - 39 unit/L 20 ALT Latest Ref Range: 0 - 55 unit/L 23 Ferritin Latest Ref Range: 30 - 400 ng/mL 161 Iron Latest Ref Range: 45 - 160 mcg/dL 105 TIBC Latest Ref Range: 250 - 450 mcg/dL 283 Iron Saturation Latest Ref Range: 20 - 50 % 37 25-OH Vit D Total Latest Ref Range: 30 - 100 ng/mL 33 Prealbumin Latest Ref Range: 20 - 40 mg/dL 22 Assessment: stable 1 year S/P gastric bypass, with loss of 60% of excess body weight. Improvement in health and QOL Plan: ?? Konstantin was congratulated on ongoing healthy lifestyle efforts ?? Trial omeprazole 20 mg daily, if abdominal burning episodes continue, will discuss updated plan for evaluation ?? Next BSP visit: November ?? Next labwork: November ?? Additional vitamin and mineral supplement recommendations (*in addition to usual post surgery supplements, as noted below): decrease iron to every other day for the next 6 months, increase vitaminD3 to 2000 units daily for the next year. ?? dietary/ exercise recommendations per RD ?? [...] If labwork is done by the primary animal caretaker supervisor: pleasesend a copy to the Bariatric Surgery Program, General Surgery Clinic, [facility], attention Dorys Rivers APRN. Questions regarding [facility] Bariatric Surgery Program patients: please call Abiodun Rivers APRN at [phone] or [phone] beeper [phone]. E-mail: [email or web address] * Arabella Watts, RD - 05/22/2017 9:30 AM EDT Bariatric Surgery Program Nutrition Progress Note Encounter Type: follow up SUBJECTIVE: Topics Discussed/Patient Concerns: ?? Dizziness with sit to stand. ?? Fatigue - tired a lot. Likely due to lack of sleep - 4-5 hours night. Lots of overtime lately - short staffed by 12. ?? Grazing at night time. Cheese and pepperoni at home. Does not snack at work because he is not allowed to. ?? 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 Lives with girlfriend [...] 05/22/17 269.5# 60% 37.8 1 year post-op [place] Body Weight (based on BMI of 25): 174# Excess Weight: 218# 50-70% Excess Weight Loss: 230-285# MEDICATIONS: Vitamin/Mineral Supplements (reported by patient): Supplement Type Brand/Form Dosage/Amount Frequency Comments Multivitamin Men's MVM 1 daily Calcium Calculates dietary sources and feels he's meeting 7158-0643 mg daily Vitamin B12 pill 500 mcg Once daily Iron 325 mg daily Hx of deficiency Vitamin C chewable 500 mg Daily w/iron pill Vitamin D pill 1000 IU daily Tracking Intake: No. Finds it hard to track when he's at work. Food Allergies/Intolerances: bread, PB, chicken and turkey, sweets Daily Oral Intake: lately eating sunflower seeds instead of crackers Breakfast Cottage cheese AM Snack Pack of crackAchaLa Lunch Yesterday was chicken fajita - whatever is being served at work (senior care) PM Snack Pack of crackers Dinner Protein and vegetable HS Snack Protein/ grams per day: 50+ Calories per day: 1000 Hydrating fluids- oz/ day: 64-96 oz water daily, 4 oz milk daily Soda: none ETOH: Once a month Caffeine: 1 cup coffee daily Sweets: Once per month. Cannot tolerate. Meals per day: 3 ?? Feels full/satisfied after eating: yes ?? Feels hungry []never []sometimes [x]most of the time - feels hungry about 30 minutes after a meal ?? Drinks with meals: none. ?? Practices portion control: yes. Uses a portion control plate. ?? Spends at least 20 minutes eating each meal: 15-20 minutes per meal ?? Has had dumping syndrome: anything sweet Foods/Symptoms: chocolate. Feels tired, sometimes vomits, and rapid heartrate ?? In the past month, pt has vomited/regurgitated: none ?? Constipation: none Exercise: yard work, chasing kids, SRT Training (8 hours of physical training at work), walking up and down stairs ASSESSMENT: Summary of Weight Loss: Patient's percent excess weight loss is 60% which is within the expected post-op bariatric surgery range. He is tolerating the diet well. Finds he gets hungry soon after meals. ? If getting enough protein at meal time. Difficult for him to control protein intake at work. Fluid intake is adequate. Encouraged planning high protein snacks. He is taking the recommended supplements. He is getting regular exercise. NUTRITION INTERVENTION & MONITORING: ?? Provided support/encouragement and reinforced importance of meeting nutritional goals. ?? Reviewed nutrition and vitamin and mineral supplement recommendations (see patient instructions). - Consider 1 calcium chew daily to aid in meeting calcium needs. - Plan 1-2 high protein snacks daily - Consider switching to turkey pepperoni ?? Written recommendations provided. Patient agreed with these and verbalized adequate understanding. ?? Evaluation by nurse practitioner today. documented in this encounter Plan of Treatment Not on file documented as of this encounter Results * Vitamin D, 25-Hydroxy (05/22/2017 10:53 AM EDT) Vitamin D Total 25 OH 33 30 - 100 ng/mL [facility] Comment: Deficient <10 ng/mL Insufficient 10 to 29 ng/mL Sufficient 30 to 100 ng/mL Potential Intoxication >100 ng/mL According to the [place] National Osteoporosis Foundation, Vitamin D concentrations >30 ng/mL are sufficient to protect bone health. ??The National Kidney Foundation has similarly stated that patients with Vitamin D concentrations <30ng/mL should be considered to be insufficient or deficient. http://[employer].MediKeeper/nkf-guidelines http://[employer].MediKeeper/nejm-VitD The IDS iSYS Vitamin D Immunoassay detects both 25-OH Vitamin D2 and 25-OH Vitamin D3, but only a total Vitamin D concentration is reported. Blood specimen (specimen) 05/22/2017 10:53 AM EDT 05/22/2017 1:29 PM EDT Narrative Resulting Agency Comment Spec In Lab Dorys Rivers SOX ANALYST CHEMISTRY ORDERAB LES [facility] [place] [address] * Iron and TIBC (05/22/2017 10:53 AM EDT) Iron 105 45 - 160 mcg/dL [facility] TIBC 283 250 - 450 mcg/dL [facility] Iron Saturation 37 20 - 50 % [facility] Blood specimen (specimen) 05/22/2017 10:53 AM EDT 05/22/2017 10:59 AM EDT Narrative Resulting Agency Comment Spec In Lab Dorys Rivers SOX ANALYST CHEMISTRY ORDERAB LES Performing Organization Address City/[facility]/ZIP Co de Phone Number [facility] [place] [address] * Ferritin (05/22/2017 10:53 AM EDT) [facility] Ferritin 161 30 - 400 ng/mL [facility] Comment: Pediatric reference ranges not verified at [facility], interpret with caution. Reference ranges for females greater than 50 years of age approach values for men, i.e., 30-400 ng/mL. Blood specimen (specimen) 05/22/2017 10:53 AM EDT 05/22/2017 10:59 AM EDT Narrative Resulting Agency Comment Spec In Lab Doryslaurence Rivers SOX ANALYST CHEMISTRY ORDERAB LES Performing Organization Address [facility] Co de Phone Number [facility] [place] [address] * Prealbumin (05/22/2017 10:53 AM EDT) [facility] Prealbumin 22 20 - 40 mg/dL [facility] Comment: Prealbumin levels are generally lower in the pediatric population; adult concentrations are usually attained near puberty. Blood specimen (specimen) 05/22/2017 10:53 AM EDT 05/22/2017 10:59 AM EDT Narrative Resulting Agency Comment Spec In Lab Doryslaurence Rivers SOX ANALYST CHEMISTRY ORDERAB LES Performing Organization Address [facility]/ZIP Co de Phone Number [facility] [place] [address] * Hepatic Function Panel (05/22/2017 10:53 AM EDT) [facility] Protein, Total 7.0 6.1 - 8.0 gm/dL [facility] Albumin 4.3 3.2 - 5.2 gm/dL [facility] Aspartate Aminotransferase 20 0 - 39 unit/L [facility] Alanine Aminotransferase 23 0 - 55 unit/L [facility] Alkaline Phosphatase 83 40 - 120 unit/L [facility] Bilirubin, Total 0.3 0.2 - 1.3 mg/dL [facility] Bilirubin, Direct 0.1 0.0 - 0.3 mg/dL [facility] Blood specimen (specimen) 05/22/2017 10:53 AM EDT 05/22/2017 10:59 AM EDT Narrative Resulting Agency Comment Spec In Lab Dorys Rivers SOX ANALYST CHEMISTRY ORDERAB LES Performing Organization Address City/State/[facility] Co de Phone Number [facility] [place] [address] * Hemogram (05/22/2017 10:53 AM EDT) White Blood Cell 9.4 4.0 - 9.5 x10(3)/[facility] Red Blood Cell 4.81 4.58 - 5.54 x10(6)/[facility] Hemoglobin 15.2 13.7 - 16.5 gm/dL [facility] Hematocrit 43.8 40.5 - 48.5 % [facility] Mean Cell Volume 91.1 82.9 - 93.1 [facility] Mean Cell Hemoglobin 31.6 27.5 - 32.1 pg [facility] Mean Cell Hemoglobin Concentration 34.7 32.0 - 35.7 gm/dL [facility] Platelet 248 145 - 357 x10(3)/[facility] RDW Standard Deviation 39.7 36.0 - 45.0 [facility] RDW coefficient of variation 11.8 11.4 - 13.8 % [facility] Mean Platelet Volume 10.7 7.6 - 12.9 [facility] NRBC% auto 0.0 % [facility] NRBC Absolute 0.000 0.000 - 0.000 x10(3)/mcL [facility] Blood specimen (specimen) 05/22/2017 10:53 AM EDT 05/22/2017 10:59 AM EDT Narrative Resulting Agency Comment Spec In Lab Dorys Rivers SOX ANALYST HEMATOLOGY ORDERA BLES [facility] [place] [address] documented in this encounter Visit Diagnoses Diagnosis Disorder of iron metabolism Other disorders of iron metabolism Status post bariatric surgery Bariatric surgery status Intestinal malabsorption, unspecified type documented in this encounter Care Teams Sap Business Intelligence Consultant Relationship Specialty Start Date End Date Radhika Xiao APRN [address] [place] [address] PCP - General Family Medicine 03/28/16 documented as of this encounter
--- OUTSIDE RECORDS SUMMARY | 2024-05-25 13:08 | XMS_ITS | Encounter Summary ---
Author Organization [facility] [place] [address] Care Team Providers Care Type Caster Name Role Phone Radhika Xiao GERALD Primary Care Provider [phone] Encounter Details Date Type Department Care Team (Late st Contact Info) Description 04/30/2016 11:30 AM EDT Office Visit General Surgery [facility] [place] [address] Rebeca Jiménez [employer] [facility] [address] Iron deficiency anemia, unspecified iron deficiency anemia type; Low hemoglobin and low hematocrit; Morbid obesity with BMI of 50.0-59.9, adult; Encounter for pre-bariatric surgery counseling and education; Reflux esophagitis Social History Tobacco Use Types Packs/Day Years [...] on file documented as of this encounter Patient Instructions * Patient Instructions* Rebeca Jiménez APRN - 04/30/2016 11:30 AM EDT BARIATRIC SURGERY DISCHARGE INFORMATION CONTACT INFORMATION: [phone] Surgeons: Marimar Larson and Trus [phone] [employer] Operator: [phone] (Saturday through Saturday, 8:00 AM -5:00 PM) Dietitians: [phone] Non-business hours: [phone], ask for general surgeon industrial relations manager FOR [employer]: CALL 911 (trouble breathing, chest [...] restrictions. Lift when you feel comfortable. ??? For all patients: Do not drive for 2 weeks. After [...] to be too high. ULCER PREVENTION: omeprazole 40 mg daily (or any medication you may [...] anti-inflammatory non-steroidal medications, such as Advil, Aleve, etc. Refer to Medications that may increase the risk of bleeding in handbook. ??? If you take aspirin for your heart or to prevent strokes, continue as prescribed. PATIENTS WITH DIABETES: Check blood sugars four times a day, fasting, 2 hours after meals and if unwell. For blood sugar less than 150, do not restart diabetes medications. ??? If you see the diabetes team during your hospital stay, follow their diabetes care recommendations ??? Patients on oral diabetic medication: If blood sugar is over 200 on more than 3 rechecks, call your primary care physician or diabetic specialist for specific recommendations, or as recommended at discharge. ??? For patients on insulin and oral diabetic medications: If blood sugar is consistently under 200, you will not likely need medication. If blood sugar is over 200 on a few rechecks, call your primary care doctor or diabetic specialist for specific recommendations or as recommended at discharge. ??? Follow up with primary care provider or family services specialist in 1-2 weeks. Bring meter to appointments. PATIENTS WITH HIGH BLOOD PRESSURE: Monitor your [...] and 24 months, then yearly for life. WOMEN OF CHILDBEARING AGE: ??? Fertility may increase with weight loss. Avoid for 18-24 months after surgery. Condoms alone are not acceptable as a form of control. Do not take control pills for the firstmonth after surgery. documented in this encounter Progress Notes * Rebeca Jiménez APRN - 04/30/2016 11:30 AM EDT Konstantin attended a comprehensive two hour pre-operative class today, which included discussion of pre and post operative instructions included in the [facility] [place] [place] Education Handbook.The one hour nutrition component of the class was taught by the BSP: Dorys Rivers APRN. One hour of the class was spent providing nutrition education. OR date: 05/16/2016 [facility] gastric bypass/Dr. Thomas. Individualized plan of care: ?? CPAP use during hospital stay ?? Send prescription for enoxaparin to local pharmacy on day of surgery to avoid delay in patient starting medication, since all enoxaparin prescriptions require prior approval Recommendations for post discharge VTE prophylaxis (unless change in condition during hospitalization that would contraindicate treatment): Enoxaparin 40 mg BID x 10 days post discharge. Prescriptions provided at today's visit: (faxed to pharmacy) 1. Ursodiol 300 mg BID x 6 months, to start at 2 weeks post-operatively for cholelithiasis prevention 2. Omeprazole 40 mg once daily x 3 months, to start upon discharge for ulcer prevention. May be refilled if symptomatic. OTC Vitamin and mineral supplements required post discharge: ?? Multivitamin with minerals twice daily ?? Vitamin B12 500 mcg by mouth once daily ?? Calcium citrate 600 mg with Vitamin D 400 units twice daily ?? Iron with Vitamin C, 50-66 mg once daily (take iron with vitamin C 550 mg to help with absorption) for patients with iron deficiency, anemia or menstruating females Bariatric Surgery Program Pathway and review of status with the requirements of the Bariatric Surgery Program 1. Education: He previously attended a Introduction to the [facility] seminar,a two hour meeting that provides a program overview as well as expectations. The [facility] Bariat[facility] Educational seminar requirement (3 seminars with post-testing) has been met. The BSP Educational Handbook was provided at visit #1. 2. Pre-operative programmatic evaluations have been done, as noted in previous pathway review. 3. Bariatric Surgery Program evaluations with RD and [employer] have taken place, as noted in previous pathway documentation 4. Weight requirements have been achieved and documented. 5. All pre-operative requirements were achieved. 6. Surgical consultation has taken place, and he has been approved to proceed with surgery by surgeon and insurer. Next steps in pathway: ?? During hospitalization for bariatric surgery, a standard bariatric surgery order set is followed. ?? Routine post-operative follow up with labwork is done at months 1,4,12,18 and 24, yearly thereafter, and PRN. High risk patients are followed more frequently. Some of the topics reviewed during group discussion today included: ?? day of surgery and post-op routine care/ locations: Admissions/SDP/PACU/// [facility] ?? medications that increase the risk of bleeding including NSAIDS, ASA and Plavix to be avoided per guidelines pre and post-operatively ?? DVT/VTE prevention and signs of DVT/PE. ?? Inpatient management for VTE prevention: venodynes, ambulation, Enoxaparin 40 units BID during inpatient stay. ?? Indications for extended Enoxaparin 10 days post discharge: A. patients with BMI >60 or prior VTE OR B. 2 or more of the following: age >50, BMI >50, male gender, sleep apnea, varicose veins, venous insufficiency, history of oral contraceptive or hormone or post-menopausal hormone replacement use within 30 days of surgery, and recent smoking ?? guidelines for patients on Coumadin per prescribing physician or Anticoagulation Clinic ?? diabetes and hypertension monitoring post-operatively ?? signs and symptoms of infection as well as emergency signs and symptoms ?? common post-operative complaints ?? management of sleep apnea during hospitalization and post operatively. The importance of post-operative follow-up with Sleep Center after weight loss was stressed. ?? recommendations for psychiatric medications: should continue uninterrupted after surgery ?? activity post surgery/ return to work recommendations ?? pre-operative and post-operative dietary recommendations ?? post-op vitamin and mineral supplementation ?? routine BSP post-operative follow-up: 3 weeks. 4, 12,18, 24 months and yearly for LIFE ?? routine Primary Care post-operative follow up: at 10-14 days after surgery to monitor chronic health problems such as diabetes and hypertension, since the requirement for antihypertensive and diabetic medications may decrease or be discontinued A preliminary copy of the discharge instructions was provided, which is also available in the patient handbook. Konstantin appeared to have a good understanding of the information presented, and asked appropriate questions. He satisfactorily completed the post-test administered, and achieved a grade of 100%. All his questions were answered. Time spent in individual counseling and coordination of care: 5 minutes Time spent in group counselin minutes * Rebeca Jiménez APRN - 04/30/2016 11:30 AM EDT One hour of today's group visit was spent in review of dietary and post op vitamin and mineral supplementation. Some of the topics reviewed today included: ??? pre-operative and post-operative dietary recommendations ??? post-op vitamin and mineral supplementation Konstantin appeared to have a good understanding of the information presented, and asked appropriate questions. All his questions were answered. documented in this encounter Plan of Treatment Not on file documented as of this encounter Procedures Procedure Name Priority Date/Time Associated Diagnosis Comments HEMOGRAM Routine 04/30/2016 1:53 PM EDT Low hemoglobin and low hematocrit DIFFERENTIAL, AUTOMATED Routine 04/30/2016 1:53 PM EDT Low hemoglobin and low hematocrit IRON AND TIBC Routine 04/30/2016 1:53 PM EDT Iron deficiency anemia, unspecified iron deficiency anemia type CBC (WITH DIFF) Routine 04/30/2016 1:53 PM EDT Low hemoglobin and low hematocrit FERRITIN Routine 04/30/2016 1:53 PM EDT Iron deficiency anemia, unspecified iron deficiency anemia type documented in this encounter Results * Differential, Automated (04/30/2016 1:53 PM EDT) Neutrophil % 66.3 % [facility] Neutrophil Absolute 5.00 1.50 - 6.30 x10(3)/[facility] Lymph % 20.5 % [facility] Lymphocytes Abs 1.5 1.0 - 3.6 x10(3)/[facility] Monocyte % 11.3 % [facility] Monocyte Abs 0.8 0.2 - 1.0 x10(3)/[facility] Eos % 1.3 % [facility] Eosinophils Abs 0.1 0.0 - 0.5 x10(3)/[facility] Basophil % 0.3 % [facility] Baso Absolute 0.0 0.0 - 0.2 x10(3)/[facility] Immature Gran % 0.30 % [facility] Comment: Immature granulocytes(IG's)percentage and absolute count will include metamyelocytes, myelocytes, and promyelocytes. Blood smears from CBCs yielding IG's will be scanned manually for concordance. If this scan disagrees with the automated IG or if promyelocytes are noted, a manual differential will be performed. Immature Gran Absolute 0.02 0.00 - 0.05 x10(3)/[facility] Blood specimen (specimen) 04/30/2016 1:53 PM EDT 04/30/2016 2:07 PM EDT Narrative Resulting Agency Comment Spec In Lab Juan Thomas MD HEMATOLOGY ORDERABLE S [facility] [place] [address] * (ABNORMAL) Hemogram (04/30/2016 1:53 PM EDT) White Blood Cell 7.5 4.0 - 10.0 x10(3)/ L [facility] Red Blood Cell 4.47(L) 4.63 - 6.08 x10(6)/ L [facility] Hemoglobin 12.5(L) 13.7 - 17.5 gm/dL [facility] Hematocrit 39.4(L) 40.0 - 51.0 % [facility] Mean Cell Volume 88.1 79.0 - 92.0 fL [facility] Mean Cell Hemoglobin 28.0 25.6 - 32.2 pg [facility] Mean Cell Hemoglobin Concentration 31.7(L) 32.0 - 36.5 gm/dL [facility] Platelet 265 145 - 370 x10(3)/[facility] RDW Standard Deviation 42.0 35.0 - 46.0 fL [facility] RDW coefficient of variation 13.0 10.9 - 14.4 % [facility] Mean Platelet Volume 9.9 9.0 - 12.0 fL [facility] NRBC% auto 0.0 % [facility] NRBC Absolute 0.000 0.000 - 0.012 x10(3)/[facility] Blood specimen (specimen) 04/30/2016 1:53 PM EDT 04/30/2016 2:07 PM EDT Narrative Resulting Agency Comment Spec In Lab Juan Thomas MD HEMATOLOGY ORDERABLE S [facility] [place] [address] * (ABNORMAL) Iron and TIBC (04/30/2016 1:53 PM EDT) Iron 55 45 - 160 mcg/dL [facility] TIBC 332 250 - 450 mcg/dL [facility] Iron Saturation 17(L) 20 - 50 % [facility] Blood specimen (specimen) 04/30/2016 1:53 PM EDT 04/30/2016 2:07 PM EDT Narrative Resulting Agency Comment Spec In Lab Juan Thomas MD CHEMISTRY ORDERABLES Performing Organization Address City/[facility] Co de Phone Number [facility] [place] [address] * Ferritin (04/30/2016 1:53 PM EDT) Ferritin 62 30 - 400 ng/mL [facility] Comment: Pediatric reference ranges not verified at [facility], interpret with caution. Reference ranges for females greater than 50 years of age approach values for men, i.e., 30-400 ng/mL. Blood specimen (specimen) 04/30/2016 1:53 PM EDT 04/30/2016 2:07 PM EDT Narrative Resulting Agency Comment Spec In Lab Juan Thomas MD CHEMISTRY ORDERABLES Performing Organization Address [facility] Co de Phone Number [facility] [place] [address] documented in this encounter Visit Diagnoses Diagnosis Iron deficiency anemia, unspecified iron deficiency anemia type Low hemoglobin and low hematocrit Morbid obesity with BMI of 50.0-59.9, adult Morbid obesity Encounter for pre-bariatric surgery counseling and education Reflux esophagitis documented in this encounter Care Teams Type Caster Relationship Specialty Start Date End Date Radhika Xiao, GERALD [address] [place] [address] PCP - General Family Medicine 03/28/16 documented as of this encounter
--- OUTSIDE RECORDS SUMMARY | 2024-05-25 13:08 | XMS_ITS | Encounter Summary ---
[place] [address] Care Team Providers Care Taker Down Name Role Phone JoRadhika castro GERALD Primary Care Provider Reason for Referral * Consultation (Routine) - Closed Specialty Diagnoses / Procedures Referred By Contkelly t Referred To Contact Gastroenterology Diagnoses Gastroesophageal reflux disease, esophagitis presence not specified Iron deficiency anemia, unspecified iron deficiency anemia type Preop testing Rebeca Jiménez APRN [facility] [address] [facility] [place] [address] Referral ID Status Reason Start Date Expiration Date V isits Requested Visits Authorized [id number] Closed Test Only 03/30/2016 03/30/2017 1 1 Encounter Details Date Type Department Care Team (Late st Contact Info) Description 03/30/2016 Orders [place] [address] Rebeca Jiménez [place] [address] Gastroesophageal reflux disease, esophagitis presence not specified; Iron deficiency anemia, unspecified iron deficiency anemia type; Preop testing Social History Tobacco Use Types Packs/Day Years Used Date Smoking Tobacco: Former Cigarettes 0.5 2 0 12/27/2013 - 12/28/2015 Smokeless Tobacco: Never Sex and Gender Information Value Date Recorded Sex Assigned at Not on file Gender Identity Male 07/07/2018 3:10 PM EDT Sexual Orientation Not on file documented as of this encounter Plan of Treatment Scheduled Referrals Name Type Priority Associated Diagnoses Order Schedule Referral to Gastroenterology Outpatient Referral Routine Gastroesophageal reflux disease, esophagitis presence not specified Iron deficiency anemia, unspecified iron deficiency anemia type Preop testing Ordered: 03/30/2016 documented as of this encounter Visit Diagnoses Diagnosis Gastroesophageal reflux disease, esophagitis presence not specified Iron deficiency anemia, unspecified iron deficiency anemia type Preop testing Preoperative examination, unspecified documented in this encounter Care Teams Taker Down Relationship Specialty Start Date End Date Radhika Xiao, UROLOGIC SURGEON [address] [place] [address] PCP - General Family Medicine 03/28/16 documented as of this encounter
--- OUTSIDE RECORDS SUMMARY | 2024-05-25 13:08 | XMS_ITS | Encounter Summary ---
Author Organization [facility] [place] [facility] [place] [address] Care Team Providers Care Swine Extension Field Specialist Name Role Phone Vimal Xiao APRN Primary [...] Expiration Date Visits Re quested Visits Authorized [id number] 1 1 Encounter Details Date Type Department Care Team (Late st Contact Info) Description 05/16/2016 7:30 AM EDT - 05/16/2016 11:58 AM EDT Surgery [place] [id number] Juan Monge MD [facility] [place] [address] @LAPAROSCOPIC GASTROPLASTY W/ ANABELLE-EN-Y CONSTRUCTION (WRVU 29.4) Social History Tobacco Use Types Packs/Day Years [...] * Juan [facility] MD - Primary * [facility]geon Orestes History of Present [...] who was admitted on 05/16/2016 for laparoscopic Anabelle-en-Y gastric bypass with intraoperative upper endoscopy. The operative course was uneventful. OnPOD#1 he was started on a Gastric bypass stage I diet, and when he tolerated that he was advanced to a Gastric bypass stage II diet. He was changed to oral pain medications and the SANDFILL OPERATOR was discontinued on POD# 1. He was [...] mouth nightly. 1 g Refills: 0 Glucosamine &Msdolojwn-UW-Jha2 [id number] mg Tab Take 1 tablet by mouth [...] Watts LD; Rebeca Jiménez APRN General Surgery [phone] 09/05/2016 9:00 AM Arabella Watts LD; Rebeca Jiménez APRN General Surgery [phone] Instructions Given to Patient at Discharge: BARIATRIC SURGERY DISCHARGE INFORMATION CONTACT INFORMATION: [phone] Surgeons: Marimar Larson and William [phone] Credit Support Counselor: [phone] (Saturday through Saturday, 8:00 AM -5:00 PM) Dietitians: [phone] Non-business hours: [phone], ask for general surgeon educational program assistant FOR EMERGENCIES: CALL 911 (trouble breathing, chest [...] for life. Signed: MC Cheatham 05/17/2016 Primary [place] Physician: VIMAL XIAO APRN [address] [facility] [address] documented in this encounter Discharge Instructions * Discharge Instructions* Yvonne Garcia PA - 05/17/2016 1:29 PM EDT Scheduled Appointments: Future Appointments and Orders ?? Future Appointments?? Provider?? Department?? Dept Phone? 06/06/2016 9:00 AM?? Arabella Watts LD; Rebeca Jiménez APRN?? General Surgery?? [phone]? 09/05/2016 9:00 AM?? Arabella Watts LD; Rebeca Jiménez APRN?? General Surgery?? [phone]? Instructions Given to Patient at Discharge: ?? BARIATRIC SURGERY DISCHARGE INFORMATION ?? CONTACT INFORMATION: [phone] Surgeons: Marimar Larson and William [phone] Credit Support Counselor: [phone] (Saturday through Saturday, 8:00 AM -5:00 PM) Dietitians: [phone] Non-business hours: [phone], ask for general surgeon educational program assistant ?? FOR EMERGENCIES: CALL 911 (trouble breathing, [...] mL 05/17/2016 06/06/2016 ursodiol (ACTIGALL) 300 mg CapsuleIndications:E ncounter for pre-bariatric surgery counseling and education,Morbid obesity [...] Reported on 12/28/2016 3 03/01/2016 12/28/2016 Glucosamine &Tcaozyhjr-NW-Qdv4 [id number] mg Tablet Take 1 tablet by mouth [...] understanding ofall directions. Pt was escorted via [address] [place] [address] out of facility. * Pham Leal RN - 05/16/2016 8:28 PM EDT Patient arrived to [facility] via bed from PACU s/p lap gastric bypass. Patient AOx 4, HR reg, lung sounds clear/diminished, voiding CYU without difficulty. +csmt to all extremities. Dressing to abdomen C, D, and I; one site is drainage, band aide changed . Pain0/10 at this time, Dilaudid SANDFILL OPERATOR controlling pain. Patient oriented to room, call lynch to bedside, please see flowsheet for full assessment. Will continue to monitor Pham J [place], RN * Bonnie Kwan RN - 05/16/2016 12:30 PM EDT Pt arrived sleepy, but quickly c/o right shoulder pain and some lap abd pain. 1220: Reviewed hog worker with return demonstration. Talkative. 1330: Turns well, [...] Izaguirre MD - 05/16/2016 6:46 AM EDT [facility] Department of General Surgery Interval History and [...] Bee Other: no Primary Care Provider: VIMAL XIAO APRN [phone] Patient/Caregiver Goals of Treatment: To return home [...] transition of care planning. SHANDA Mcgregor Pager: [phone] * Plan of Care - Pham Leal [...] voiding adequate amount CYU without difficulty. Dilaudid SANDFILL OPERATOR for pain. Pt used CPAP throughout night. Lovenoxteaching completed. WiIll continue to closely monitor. PLAN MOVING FORWARD: -[x]Pain Control -[x]Mobilize INDIVIDUALIZED FALL PREVENTION: Patient has history of: Past Medical History Diagnosis Date ??? HLD (hyperlipidemia) ??? Morbid obesity ??? [place] (obstructive sleep apnea) Patient has following SCHEDULED medications: ??? sodium chloride 0.9 % 5 mL Intravenous BID ??? SANDFILL OPERATOR Shift Total Intravenous 2 Times Daily- SANDFILL OPERATOR Shift Total ??? sennosides 17.6 mg Oral BID And ??? docusate sodium 100 mg Oral BID ??? enoxaparin 40 mg Subcutaneous 2 times per day ??? pantoprazole 40 mg Intravenous Daily ??? buPROPion 100 mg Oral Daily ??? acetaminophen 650 mg Oral Once Patient has following PRN medications: sodium chloride 0.9 %, lidocaine, prochlorperazine, ondansetron, nalOXone, SANDFILL OPERATOR brown, oxyCODONE, bisacodyl, magnesium hydroxide, diphenhydrAMINE, BUpivacaine-EPINEPHrine Baseline mobility: independent. Pt currently SBA. Assistance: --assist with walker Supervision: -[]Hands-on for all transfers and ambulation -[x]Eyes-on for all transfers and ambulation -[]Arms-Reach for all transfers and ambulation Surveillance: -[]Bed Alarm/Chair Alarm -[x]Purposeful Rounding -[x]Team Care -[x]Bedside Nurse Knowledge Exchange CPG OUTCOME EVALUATION: Goal: Individualization and Mutuality Outcome: Ongoing (Interventions Implemented as Appropriate) 05/17/16 0322 Individualization Individualize the Plan of Care: Pain control, mobility Goal: Fall Prevention-Safe Patient Handling Outcome: Ongoing (Interventions Implemented as Appropriate) 05/16/16202905/16/16210305/17/16 0319 Safety Interventions Safety Precautions/Fall Reduction commode/urinal/bedpan at [...] Outcome: Ongoing (Interventions Implemented as Appropriate) 05/16/16210305/17/16 032 Discharge Needs Assessment Concerns to be Addressed [...] - 05/16/2016 10:16 PM EDT Konstantin Hickey [id number] y/o male admitted post gastric bypass [...] Monge MD - 05/16/2016 11:17 AM EDT [facility] Operative Note Patient Name: Konstantin Hickey : [id number] MR#: [id number] Case Date: 05/16/2016 Surgeon: Surgeon(s) and Role: [...] distal bowel was chosen to create the oniw-no-twqb jejunojejunostomy. The duodenal, afferent limb was approximated [...] suture in two layers with a 30 [place] Bougie (blunt-tipped) in place. The Bougie was [...] Procedure Name Priority Date/Time Associated Diagnosis Comments SIGNAL CONSTRUCTOR SCAN 05/18/2016 12:00 AM EDT HEMOGRAM Routine [...] in this encounter Results * SCAN DOC: SIGNAL CONSTRUCTOR (05/18/2016 12:00 AM EDT) Anatomical Region Laterality Modality Other Scanning Provider MEDIA MGR SCAN EXT O RDR/RSLT * (ABNORMAL) Differential, Automated (05/17/2016 4:20 AM EDT) Neutrophil % 83.2 % [facility] Neutrophil Absolute 9.41(H) 1.50 - 6.30 x10(3)/[facility] Lymph % 9.3 % [facility] Lymphocytes Abs 1.0 1.0 - 3.6 x10(3)/[facility] Monocyte % 7.0 % [facility] Monocyte Abs 0.8 0.2 - 1.0 x10(3)/[facility] Eos % 0.0 % [facility] Eosinophils Abs 0.0 0.0 - 0.5 x10(3)/[facility] Basophil % 0.1 % [facility] Baso Absolute 0.0 0.0 - 0.2 x10(3)/[facility] Immature Gran % 0.40 % [facility] Comment: Immature granulocytes(IG's)percentage and absolute count will include metamyelocytes, myelocytes, and promyelocytes. Blood smears from CBCs yielding IG's will be scanned manually for concordance. If this scan disagrees with the automated IG or if promyelocytes are noted, a manual differential will be performed. Immature Gran Absolute 0.05 0.00 - 0.05 x10(3)/[facility] Blood specimen (specimen) 05/17/2016 4:20 AM EDT 05/17/2016 4:35 AM EDT Narrative Resulting Agency Comment Spec In Lab Lashae Morrow MD HEMATOLOGY ORDERAB LES [facility] [place] [address] * (ABNORMAL) Hemogram (05/17/2016 4:20 AM EDT) White Blood Cell 11.3(H) 4.0 - 10.0 x10(3)/[facility] Red Blood Cell 4.32(L) 4.63 - 6.08 x10(6)/ L [facility] Hemoglobin 12.2(L) 13.7 - 17.5 gm/dL [facility] Hematocrit 37.4(L) 40.0 - 51.0 % [facility] Mean Cell Volume 86.6 79.0 - 92.0 fL [facility] Mean Cell Hemoglobin 28.2 25.6 - 32.2 pg [facility] Mean Cell Hemoglobin Concentration 32.6 32.0 - 36.5 gm/dL [facility] Platelet 283 145 - 370 x10(3)/mc L [facility] RDW Standard Deviation 41.4 35.0 - 46.0 fL [facility] RDW coefficient of variation 13.3 10.9 - 14.4 % [facility] Mean Platelet Volume 10.3 9.0 - 12.0 fL [facility] NRBC% auto 0.0 % [facility] NRBC Absolute 0.000 0.000 - 0.012 x10(3)/mc L [facility] Blood specimen (specimen) 05/17/2016 4:20 AM EDT 05/17/2016 4:35 AM EDT Narrative Resulting Agency Comment Spec In Lab Lashae Morrow MD HEMATOLOGY ORDERAB LES Performing Organization Address City/[facility]/[place] [address] * Phosphorus (05/17/2016 4:20 AM EDT) Phosphorus 3.1 2.5 - 4.5 mg/dL [facility] Blood specimen (specimen) 05/17/2016 4:20 AM EDT 05/17/2016 4:35 AM EDT Narrative Resulting Agency Comment Spec In Lab Lashae Morrow MD CHEMISTRY ORDERABL ES Performing Organization Address City/[facility]/ZIP Co de Phone Number [facility] [place] [address] * Magnesium (05/17/2016 4:20 AM EDT) Magnesium 0.77 0.69 - 1.07 mmol/L [facility] Blood specimen (specimen) 05/17/2016 4:20 AM EDT 05/17/2016 4:35 AM EDT Narrative Resulting Agency Comment Spec In Lab Lashae Morrow MD CHEMISTRY ORDERABL ES [facility] [place] [address] * (ABNORMAL) Basic Metabolic Panel (non-fasting) (05/17/2016 4:20 AM EDT) Pathologist [facility] Glucose 124 65 - 199 mg/dL [facility] Comment:Diabetes: >=200 mg/d L plus symptoms Blood Urea Nitrogen 10 10 - 20 mg/dL [facility] Creatinine 1.11 0.80 - 1.50 mg/dL [facility] Comment: Please note that the pediatric reference intervals supplied above were not validated at [facility]. Results from pediatric patients should be interpreted in conjunction to the patient's age, height and muscle mass. Sodium 143 135 - 145 mmol/L [facility] Potassium 3.8 3.5 - 5.0 mmol/L [facility] Comment: Please note: ??Patients with WBC >100,000 may have falsely elevated Potassium levels. ??For accurate Potassium quantification in these patients send serum separator tube (gold top) for subsequent determinations. ??Contact the Clinical Chemistry Laboratory if there are any questions. Chloride 103 98 - 107 mmol/L [facility] Carbon Dioxide 24 22 - 31 mmol/L [facility] Anion Gap 16(H) 5 - 15 mmol/L [facility] Calcium 9.1 8.5 - 10.5 mg/dL [facility] Est Glomerular Filtration Rate >60 >=60 [facility] Comment: This estimated GFR (eGFR) [...] the following links into your internet browser. [email or web address] Blood specimen (specimen) 05/17/2016 4:20 AM EDT 05/17/2016 4:35 AM EDT Narrative Resulting Agency Comment Spec In Lab Lashae Morrow MD CHEMISTRY ORDERABL ES [place] [phone] documented in this encounter Visit Diagnoses Not on filedocumented in this encounter Admitting Diagnoses Diagnosis Obesity [...] not sufficient., Routine BUpivacaine-EPINEPHrine 0.25 %-1:200,000 injection ONCE PRN, Starting on Sat05/16/16 at 1116, Until Sat05/17/16 at 1608, Intra-Operative (Intra-Procedure), Routine Given 05/16/2016 11:16 AM EDT 15 mLs buPROPion (WELLBUTRIN) tablet 100 mg 100 mg, Oral, DAILY, First dose on Sat05/17/16 at 0900, Until Discontinued, Routine Given 05/17/2016 9:42 AM EDT 100 mg diphenhydrAMINE (BENADRYL) injection 25 mg 25 mg, Intravenous, EVERY 6 HOURS PRN, Starting on Sat05/16/16 at 204, Until Sat05/17/16 at 1608, Itching, Routine docusate sodium (COLACE) [...] Given 05/16/2016 10:40 PM EDT 40 mg lidocaine (XYLOCAINE) 10 mg/mL (1 %) injection 3 mg 3 mg (0.3 mL), Subcutaneous, ONCE PRN, 1 dose, Starting on Sat05/16/16 at 2046, Until Brooke 05/17/16 at 1608, for discomfort with PIV insertion, Recovery (Recovery-Hospital Unit), Routine magnesium hydroxide (MILK OF MAGNESIA) oral suspension 10 mL 10 mL, Oral, DAILY PRN, Starting on Sat05/16/16 at 204, Until Brooke 05/17/16 at 1608, Constipation, Administer [...] NOT exceed 2 mg total dose. Per SANDFILL OPERATOR order., Recovery (Recovery-Hospital Unit), Routine ondansetron (ZOFRAN) injection 4 mg 4 mg, Intravenous, EVERY 30 MIN PRN, 2 doses, Starting on Sat05/16/16 at 2047, Until Brooke 05/17/16 at 1608, Nausea, May repeat dose once in 30 minutes if no relief from previous dose. If multiple antiemetics are ordered, use ondansetron first, prochlorperazine second. Per SANDFILL OPERATOR order. , Recovery (Recovery-Hospital Unit) Given 05/16/2016 [...] ordered, use ondansetron first, prochlorperazine second. Per SANDFILL OPERATOR order., Recovery (Recovery-Hospital Unit), Routine sennosides (SENOKOT) [...] Brooke 05/17/16 at 0900, Until Discontinued, Routine 09 (Given - Provid er: Neftali Alexis RN) [...] 0653 (Given - Provider: Michelle Medina RN) enoxaparin (LOVENOX) injection 40 mg 40 mg, Subcutaneous, EVERY 12 HOURS SCHEDULED (2 times per day), First dose on Sat05/16/16 at 2300, Until Discontinued, Routine 2240 (Given - Provider: Pham Leal RN) 0944 [...] 2115, Until Discontinued, Recovery (Recovery-Hospital Unit), Routine 210 (Given - Provider: Pham Leal RN) 0943 (Given - Provider: Neftali Alexis RN) Continuous Medication Order 05/15/2016 05/16/2016 05/17/2016 dextrose 5% and sodium chloride 0.45% with potassium chloride 20 mEq infusion 1,000 mL, at 100 mL/hr, Intravenous, CONTINUOUS, Starting on Sat05/16/16 at 1245, Until Brooke 05/17/16 at 1224, Warning Vesicant/Irritant Medication , Recovery (Recovery-Hospital Unit) 1225 (New Bag - Provider: Mary Carmen Jewell RN)2240 (New Bag - Provider: Pham Leal RN) HYDROmorphone (DILAUDID) 1 mg/mL SANDFILL OPERATOR 50 mL (CANCELED) Intravenous, SANDFILL OPERATOR ONLY, Starting on Sat05/16/16 at 1145, Until Brooke 05/17/16 at 0848, Recovery (Recovery-Hospital Unit) 1220 (New Syringe/Cartridge - Provider: Rachel Jewell RN) lactated ringers infusion 1,000 mL (CANCELED) 1,000 mL, at 100 mL/hr, Intravenous, CONTINUOUS, Starting on Sat05/16/16 at 0630, Until Sat05/16/16 at 2015, Day of Surgery (Day of Procedure) 0653 [...] PACU Recovery 1148 (Given - Provider: Bonnie Kwan, BERRY)1153 (Given - Provider: Rachel Jewell RN)1159 (Given [...] NOT exceed 2 mg total dose. Per SANDFILL OPERATOR order., Recovery (Recovery-Hospital Unit), Routine ondansetron (ZOFRAN) [...] ordered, use ondansetron first, prochlorperazine second. Per SANDFILL OPERATOR order. , Recovery (Recovery-Hospital Unit) 2149 (Given [...] ordered, use ondansetron first, prochlorperazine second. Per SANDFILL OPERATOR order., Recovery (Recovery-Hospital Unit), Routine sodium chloride 0.9 % flush 5-20 mL 5-20 mL, Intravenous, EVERY 1 MIN PRN, Starting on 05/16/16 at 2047, Until Brooke [...] Routine documented in this encounter Care Teams Swine Extension Field Specialist Relationship Specialty Start Date End Date Vimal Xiao, STAFF PSYCHIATRIST [address] [place] [address] PCP - General Family Medicine 03/28/16 documented as of this encounter
--- OUTSIDE RECORDS SUMMARY | 2024-05-25 13:08 | XMS_ITS | Encounter Summary ---
[place] [address] Care Team Providers Care Retail Gift Card Merchandising Name Role Phone Marti Watkins APRN Primary Care Provider [phone] Reason for Visit * Reason Comments Skin Check Encounter Details Date Type Department Care Team (Late st Contact Info) Description 12/22/2013 11:15 AM EDT Office Visit Dermatology at [address] [phone] Bridger Armijo MD [address] [facility] [place] [address] Acrochordon (Primary Dx) Social History Tobacco Use Types Packs/Day Years Used Date Smoking Tobacco: Never Sex and Gender Information Value Date Recorded Sex Assigned at Not on file Gender Identity Male 07/07/2018 3:10 PM EDT Sexual Orientation Not on file documented as of this encounter Progress Notes * Bridger Armijo MD - 12/22/2013 11:47 AM EDT Problem: Tags. Anurag is a 33-year-old who is referred today by Marti Watkins for tags that are often rubbed and irritated on the lateral aspects of the base of his neck, left and right, and in both axillary vaults. They interfere with his work. Physical examination reveals tags, many, irritated, in the above-noted sites. Assessment and Plan: 1. Acrochordons. a. Today, sites were anesthetized and then removed with electrodesiccation. b. Patient tolerated well. c. Wound care instructions and supplies given. d. Return to clinic p.r.n. for new lesions/concerns. COPY: Marti Watkins A.P.R.N. documented in this encounter Plan of Treatment Not on file documented as of this encounter Visit Diagnoses Diagnosis Acrochordon- Primary Unspecified hypertrophic and atrophic condition of skin documented in this encounter Care Teams Retail Gift Card Merchandising Relationship Specialty Start Date End Date Marti Watkins, [facility] [address] [place] [address] PCP - General 12/01/13 03/27/16 documented as of this encounter
--- OUTSIDE RECORDS SUMMARY | 2024-05-25 13:08 | XMS_ITS | Encounter Summary ---
[place] [address] Care Team Providers Care Certified Court/Medical Interpreter Name Role Phone Radhika Xiao APRN Primary Care Provider [phone] Encounter Details Date Type Department Care Team (Latest Contact Info) Description 03/28/2016 7:05 AM EDT Laboratory Appointment Lab [address] [place] [id number] Morbid obesity with BMI of 50.0-59.9, adult; Diabetes mellitus type II, controlled; Preop examination; [place] (obstructive sleep apnea) Social History Tobacco Use Types Packs/Day Years [...] Priority Date/Time Associated Diagnosis Comments PTH Routine 03/28/2016 7:16 AM EDT Morbid obesity with BMI of 50.0-59.9, adult HEMOGRAM Routine 03/28/2016 7:16 AM EDT Morbid obesity with BMI of 50.0-59.9, adult Diabetes mellitus type II, controlled Preop examination DIFFERENTIAL, AUTOMATED Routine 03/28/2016 7:16 AM EDT Morbid obesity with BMI of 50.0-59.9, adult Diabetes mellitus type II, controlled Preop examination VITAMIN B1, WHOLE BLOOD Routine 03/28/2016 7:16 AM EDT Morbid obesity with BMI of 50.0-59.9, adult [place] (obstructive sleep apnea) IRON AND TIBC Routine 03/28/2016 7:16 AM EDT Morbid obesity with BMI of 50.0-59.9, adult [place] (obstructive sleep apnea) VITAMIN A Routine 03/28/2016 7:16 AM EDT Morbid obesity with BMI of 50.0-59.9, adult VITAMIN D, 25-HYDROXY Routine 03/28/2016 7:16 AM EDT Morbid obesity with BMI of 50.0-59.9, adult CBC (WITH DIFF) Routine 03/28/2016 7:16 AM EDT Morbid obesity with BMI of 50.0-59.9, adult Diabetes mellitus type II, controlled Preop examination URIC ACID Routine 03/28/2016 7:16 AM EDT Morbid obesity with BMI of 50.0-59.9, adult Diabetes mellitus type II, controlled TSH Routine 03/28/2016 7:16 AM EDT Morbid obesity with BMI of 50.0-59.9, adult Diabetes mellitus type II, controlled HEMOGLOBIN A1C Routine 03/28/2016 7:16 AM EDT Morbid obesity with BMI of 50.0-59.9, adult Diabetes mellitus type II, controlled FOLATE, SERUM Routine 03/28/2016 7:16 AM EDT Morbid obesity with BMI of 50.0-59.9, adult [place] (obstructive sleep apnea) FERRITIN Routine 03/28/2016 7:16 AM EDT Morbid obesity with BMI of 50.0-59.9, adult [place] (obstructive sleep apnea) VITAMIN B12 Routine 03/28/2016 7:16 AM EDT Morbid obesity with BMI of 50.0-59.9, adult [place] (obstructive sleep apnea) COMPREHENSIVE METABOLIC PANEL Routine 03/28/2016 7:16 AM EDT Morbid obesity with BMI of 50.0-59.9, adult Diabetes mellitus type II, controlled Preop examination documented in this encounter Results * Differential, Automated (03/28/2016 7:16 AM EDT) Neutrophil % 63.0 % [facility] Neutrophil Absolute 3.39 1.50 - 6.30 x10(3)/[facility] Lymph % 27.7 % [facility] Lymphocytes Abs 1.5 1.0 - 3.6 x10(3)/[facility] Monocyte % 7.6 % [facility] Monocyte Abs 0.4 0.2 - 1.0 x10(3)/[facility] Eos % 1.3 % [facility] Eosinophils Abs 0.1 0.0 - 0.5 x10(3)/[facility] Basophil % 0.2 % [facility] Baso Absolute 0.0 0.0 - 0.2 x10(3)/[facility] Immature Gran % 0.20 % [facility] Comment: Immature granulocytes(IG's)percentage and absolute count will include metamyelocytes, myelocytes, and promyelocytes. Blood smears from CBCs yielding IG's will be scanned manually for concordance. If this scan disagrees with the automated IG or if promyelocytes are noted, a manual differential will be performed. Immature Gran Absolute 0.01 0.00 - 0.05 x10(3)/[facility] Blood specimen (specimen) 03/28/2016 7:16 AM EDT 03/28/2016 7:31 AM EDT Narrative Resulting Agency Comment Spec In Lab Juan Thomas MD HEMATOLOGY ORDERABLE S [facility] [place] [address] * (ABNORMAL) Hemogram (03/28/2016 7:16 AM EDT) White Blood Cell 5.4 4.0 - 10.0 x10(3)/mc L [facility] Red Blood Cell 4.36(L) 4.63 - 6.08 x10(6)/mc L [facility] Hemoglobin 12.5(L) 13.7 - 17.5 gm/dL [facility] Hematocrit 39.3(L) 40.0 - 51.0 % [facility] Mean Cell Volume 90.1 79.0 - 92.0 fL [facility] Mean Cell Hemoglobin 28.7 25.6 - 32.2 pg [facility] Mean Cell Hemoglobin Concentration 31.8(L) 32.0 - 36.5 gm/dL [facility] Platelet 258 145 - 370 x10(3)/ L [facility] RDW Standard Deviation 42.2 35.0 - 46.0 fL [facility] RDW coefficient of variation 12.9 10.9 - 14.4 % [facility] Mean Platelet Volume 9.9 9.0 - 12.0 fL [facility] Blood specimen (specimen) 03/28/2016 7:16 AM EDT 03/28/2016 7:31 AM EDT Narrative Resulting Agency Comment Spec In Lab Juan Thomas MD HEMATOLOGY ORDERABLE S [facility] [place] [address] * TSH (03/28/2016 7:16 AM EDT) Thyroid Stimulating Hormone 3.15 0.27 - 4.20 mcIU/mL [facility] Blood specimen (specimen) 03/28/2016 7:16 AM EDT 03/28/2016 7:31 AM EDT Narrative Resulting Agency Comment Spec In Lab Juan Thomas MD CHEMISTRY ORDERABLES Performing Organization Address City/[facility]/ZIP Co de Phone Number [facility] [place] [address] * Uric acid (03/28/2016 7:16 AM EDT) Uric Acid 7.8 3.5 - 8.5 mg/dL [facility] Blood specimen (specimen) 03/28/2016 7:16 AM EDT 03/28/2016 7:31 AM EDT Narrative Resulting Agency Comment Spec In Lab Juan Thomas MD CHEMISTRY ORDERABLES Performing Organization Address [facility] Co de Phone Number [facility] [place] [address] * Folate, serum (03/28/2016 7:16 AM EDT) Folate 11.7 4.6 - 34.8 ng/mL [facility] Blood specimen (specimen) 03/28/2016 7:16 AM EDT 03/28/2016 7:31 AM EDT Narrative Resulting Agency Comment Spec In Lab Juan Thomas MD CHEMISTRY ORDERABLES Performing Organization Address City/[facility] Co de Phone Number [facility] [place] [address] * Vitamin B12 (03/28/2016 7:16 AM EDT) Vitamin B12 678 207 - 974 pg/mL [facility] Blood specimen (specimen) 03/28/2016 7:16 AM EDT 03/28/2016 7:31 AM EDT Narrative Resulting Agency Comment Spec In Lab Juan Thomas MD CHEMISTRY ORDERABLES Performing Organization Address City/[facility]/ZIP Co de Phone Number [facility] [place] [address] * Vitamin B1, whole blood (03/28/2016 7:16 AM EDT) Vit B1 Lvl Wb (JANUARY) 127 70 - 180 nmol/L [facility] Comment: Test Performed by: [facility] [place] [address] [employer] Porter: Rachel Pena, Ph.D. Blood specimen (specimen) 03/28/2016 7:16 AM EDT 03/28/2016 9:20 AM EDT Narrative Resulting Agency Comment Spec In Lab Juan Thomas MD LAB SEND OUT ORDERAB LES Performing Organization Address City/[facility]/ZIP Co de Phone Number [facility] [place] [address] * VIT D Total Evaluation (03/28/2016 7:16 AM EDT) [facility] Signature Vitamin D Total 25 OH 31 30 - 100 ng/mL [facility] Comment: Deficient <10 ng/mL Insufficient 10 to 29 ng/mL Sufficient 30 to 100 ng/mL Potential Intoxication >100 ng/mL According to the [place] National Osteoporosis Foundation, Vitamin D concentrations >30 ng/mL are sufficient to protect bone health. ??The National Kidney Foundation has similarly stated that patients with Vitamin D concentrations <30ng/mL should be considered to be insufficient or deficient. [email or web address] The [employer] Vitamin D Immunoassay detects both 25-OH Vitamin D2 and 25-OH Vitamin D3, but only a total Vitamin D concentration is reported. Blood specimen (specimen) 03/28/2016 7:16 AM EDT 03/28/2016 7:31 AM EDT Narrative Resulting Agency Comment Spec In Lab Juan Thomas MD CHEMISTRY ORDERABLES Performing Organization Address City/[facility]/ZIP Co de Phone Number [facility] [place] [address] * PTH (03/28/2016 7:16 AM EDT) Parathyroid Hormone 32 15 - 65 pg/mL [facility] Blood specimen (specimen) 03/28/2016 7:16 AM EDT 03/28/2016 7:31 AM EDT Narrative Resulting Agency Comment Spec In Lab Juan Thomas MD CHEMISTRY ORDERABLES Performing Organization Address [facility]/ZIP Co de Phone Number [facility] [place] [address] * Vitamin A (03/28/2016 7:16 AM EDT) [facility] Vitamin A (JANUARY) 40.5 32.5 - 78.0 mcg/dL [facility] Comment: Test Performed by: [facility] [place] [address] [employer] Porter: Rachel Pena, Ph.D. Blood specimen (specimen) 03/28/2016 7:16 AM EDT 03/28/2016 9:18 AM EDT Narrative Resulting Agency Comment Spec In Lab Juan Thomas MD LAB SEND OUT ORDERAB LES Performing Organization Address [facility] Co de Phone Number [facility] [place] [address] * Ferritin (03/28/2016 7:16 AM EDT) [facility] Ferritin 42 30 - 400 ng/mL [facility] Comment: Pediatric reference ranges not verified at [facility], interpret with caution. Reference ranges for females greater than 50 years of age approach values for men, i.e., 30-400 ng/mL. Blood specimen (specimen) 03/28/2016 7:16 AM EDT 03/28/2016 7:31 AM EDT Narrative Resulting Agency Comment Spec In Lab Juan Thomas MD CHEMISTRY ORDERABLES Performing Organization Address [facility]/ZIP Co de Phone Number [facility] [place] [address] * (ABNORMAL) Iron and TIBC (03/28/2016 7:16 AM EDT) Iron 42(L) 45 - 160 mcg/dL [facility] TIBC 344 250 - 450 mcg/dL [facility] Iron Saturation 12(L) 20 - 50 % [facility] Blood specimen (specimen) 03/28/2016 7:16 AM EDT 03/28/2016 7:31 AM EDT Narrative Resulting Agency Comment Spec In Lab Juan Thomas MD CHEMISTRY ORDERABLES [facility] [place] [address] * (ABNORMAL) Hemoglobin A1c (03/28/2016 7:16 AM EDT) Hemoglobin A1c 5.7(H) 4.3 - 5.6 % [facility] Comment: Reference Range: 4.3 [...] Mellitus, Diabetes Care 2013; 36: Suppl. 1, B87-54 Estimated Average Glucose 117 mg/dL [facility] Comment: eAG equivalents for HbA1c percentages: HbA1c(%) ?eAG(mg/dL) 6.0 ?126 6.5 ?140 7.0 ?154 7.5 ?169 8.0 ?183 8.5 ?197 9.0 ?212 9.5 ?226 10.0 ? 240 Limitations: The eAG calculation has not been validated on women, individuals below 18 years old and above 70 years old, and individuals with hemoglobinopathies. Additional resources are available on the [employer] website: [email or web address] CITYadacalc Jonn PONCE, Yessica J, Sara R, et al. ??Translating the A1C assay into estimated average glucose values. ??Diabetes Care 2008:31(8):6580-4525. Blood specimen (specimen) 03/28/2016 7:16 AM EDT 03/28/2016 7:31 AM EDT Narrative Resulting Agency Comment Spec In Lab Juan Thomas MD CHEMISTRY ORDERABLES [facility] [place] [address] * (ABNORMAL) Comprehensive metabolic panel (non-fasting) (03/28/2016 7:16 AM EDT) Glucose 86 65 - 199 mg/dL [facility] Comment:Diabetes: >=200 mg/d L plus symptoms Blood Urea Nitrogen 17 10 - 20 mg/dL [facility] Creatinine 1.00 0.80 - 1.50 mg/dL [facility] Comment: Please note that the pediatric reference intervals supplied above were not validated at [facility]. Results from pediatric patients should be interpreted in conjunction to the patient's age, height and muscle mass. Sodium 140 135 - 145 mmol/L [facility] Potassium 3.9 3.5 - 5.0 mmol/L [facility] Comment: Please note: ??Patients with WBC >100,000 may have falsely elevated Potassium levels. ??For accurate Potassium quantification in these patients send serum separator tube (gold top) for subsequent determinations. ??Contact the Clinical Chemistry Laboratory if there are any questions. Chloride 101 98 - 107 mmol/L [facility] Carbon Dioxide 29 22 - 31 mmol/L [facility] Anion Gap 10 5 - 15 mmol/L [facility] Calcium 9.2 8.5 - 10.5 mg/dL [facility] Protein, Total 7.3 6.1 - 8.0 gm/dL [facility] Albumin 3.9 3.2 - 5.2 gm/dL [facility] Aspartate Aminotransferase 27 0 - 39 unit/L [facility] Alanine Aminotransferase 35 0 - 55 unit/L [facility] Alkaline Phosphatase 88 40 - 120 unit/L [facility] Bilirubin, Total <0.2(L) 0.2 - 1.3 mg/dL [facility] Bilirubin, Direct <0.1 0.0 - 0.3 mg/dL [facility] Est Glomerular Filtration Rate >60 >=60 [facility] Comment: This estimated GFR [...] the following links into your internet browser. [email or web address] Blood specimen (specimen) 03/28/2016 7:16 AM EDT 03/28/2016 7:31 AM EDT Narrative Resulting Agency Comment Spec In Lab Juan Thomas MD CHEMISTRY ORDERABLES [facility] [place] [address] documented in this encounter Visit Diagnoses Diagnosis Morbid obesity with BMI of 50.0-59.9, adult Morbid obesity Diabetes mellitus type II, controlled Type II or unspecified type diabetes mellitus without mention of complication, not stated as uncontrolled Preop examination Preoperative examination, unspecified [place] (obstructive sleep apnea) Obstructive sleep apnea (adult) (pediatric) documented in this encounter Care Teams Certified Court/Medical Interpreter Relationship Specialty Start Date End Date Radhika Xiao, [employer] [address] [address] PCP - General Family Medicine 03/28/16 documented as of this encounter
--- OUTSIDE RECORDS SUMMARY | 2024-05-25 13:08 | XMS_ITS | Encounter Summary ---
Author Organization [place] [address] Care Team Providers Care Sports Specialist Name Role Phone Radhika Xiao APRN [...] Expiration Date Visits Re quested Visits Authorized [id number] 1 1 Encounter Details Date Type Department Care Team (Late st Contact Info) Description 05/16/2016 7:30 AM EDT Anesthesia Event [place] [id number] Nasir Najera MD [facility] [place] [address] Anesthesia Record Procedure Summary Procedure Name Responsible Anesthesiologist Anesthesia Start Time Anesthesia Stop Time @LAPAROSCOPIC GASTROPLASTY W/ ANABELLE-EN-Y CONSTRUCTION (WRVU 29.4) (Abdomen) Nasir Najera MD 05/16/16 0730 05/16/16 1146 Events Date Time Event Comment 05/16/2016 0651 0730 AN Verify 0730 Start 0735 An Induction 0740 An Intubation 0741 An Start Data 0744 Anesthesia Ready 0818 Procedure Start 0840 Quick Note og and temp pro be removed at surgeon's request 1013 Quick Note 2 cc ICG inject ed 1049 Quick Note Pt position real nged from reverse tburg to slight tburg 1136 Extubation/LMA Out 1146 an stop data 1146 Recovery or ICU Handoff Betty ent care was transferred to the destination unit staff after review of the patient's medical history, current anesthetic/surgical status and plan, according to the Provider Handoff Checklist. 1146 Stop Meds Name Total Midazolam 2 mg Propofol 300 mg Rocuronium 140 mg Neostigmine 5 mg Glycopyrrolate 0.8 mg Succinylcholine 200 mg Dexmedetomidine INF 222.82 mcg Labetalol 10 mg ceFAZolin (ANCEF) 3g in dextrose 5% 100 mL 3 g Dexmedetomidine 12 mcg lactated ringers infusion 1,000 mL 2,000 mL * Agents Name O2 Air Sevoflurane (et) * Blood No blood administrations on file. Lines, Drains, and Airways Type Details Placement Removal Incision 05/16/16; abdomen; laparoscopic puncture (trocar sites x 6); 05/14/22 (LDA cleanup utility RA#[id number]); 1715 (LDA cleanup utility RA#[id number]) 05/16/16 0000 by Adele Monroe RN 05/14/22 1715 by Andreina Gomez (RETIRED) Peripheral IV Line - Single Lumen 05/16/16; 0637; median vein right (underside of arm); evhd-cwu-injlyu catheter system; 18 gauge, 3/4 in length; Karime Colon RN; intradermal injection, tolerated well, distraction; 1; median vein (underside of arm), left; removed per physician; 05/17/16; 0550 05/16/16 0637 by Karime Colon RN 05/17/16 0550 by Kip Milligan, RN ETT Mask Ventilation: Adjunct (2); ETT Type: Cuffed; ETT Size: 7.5 mm; Indirect: Video; Notes: Asleep, Pre-O2, Stylette; Attempts: 1; Laryngoscopy Grade: 1; ETT Placement Verified By: Auscultation, Capnometry, Visual; Secured at Teeth: 23 cm; Inserted by: shashank pickard do; Removal Date: 05/16/16; Removal Time: 1136 05/16/16 0746 by Shashank Pickard DO 05/16/16 1136 by Shashank Pickard DO documented in this encounter Social History Tobacco [...] OR Notes * Anesthesia Postprocedure Evaluation - Nasir Najera MD - 05/16/2016 3:08 PM EDT [facility] [place] of Anesthesiology Post-procedure Note Patient: Konstantin Hickey Procedure Summary Date Anesthesia Start Anesthesia Stop Room / Location 05/16/16 0730 1146 [facility] OR 26 / [facility] MAIN OR Procedure Diagnosis Surgeon Responsible Provider @LAPAROSCOPIC GASTROPLASTY, (N/A Abdomen); ENDOSCOPY, UPPER GI, DIAGNOSTIC, WITH OR WITHOUT SPECIMENS (N/A Abdomen) (OBESITY) Juan Thomas MD Sites, Brian D, MD All Anesthesia Providers: Anesthesiologist: Nasir Najera MD Food Tray Assembler: Shashank Pickard DO Last (1hr) Vitals: BP 128/69 (05/16/16 1500) Temp Pulse 92 (05/16/16 1500) Resp 21 (05/16/16 1500) SpO2 95 % (05/16/16 1500) Patient Location: PACU/[facility] Level of Consciousness: Lethargic Pain Management: Satisfactory Analgesia PONV: None Cardiovascular Status: At Baseline Respiratory Status: At Baseline Postoperative Fluid Status: Intravascular EUvolemia Possible Anesthetic Complications: NONE apparent at time of evaluation Final Primary Anesthesia Type: General (The anesthetic type performed was the same as planned.) Comments: Doing well, has some referred pain from insufflation. * Anesthesia Preprocedure Evaluation - Shashank Pickard - 05/15/2016 3:43 PM EDT Pre-Anesthesia Evaluation for: Konstantin Hickey a 35 y.o. male. Procedure(s): @LAPAROSCOPIC GASTROPLASTY, ENDOSCOPY, UPPER GI, DIAGNOSTIC, WITH OR WITHOUT SPECIMENS LAPAROSCOPIC LIVER BIOPSY Patient Active Problem List Diagnosis ??? Prediabetes --03/28/2016: HbA1C 5.7 ??? GAYLE (iron deficiency anemia) ??? Depression ??? History of tobacco abuse --Stop smoking 09/2015. ??? Daytime somnolence ??? Gastroesophageal reflux ??? Allergic rhinitis ??? Pain in right shoulder ??? Low back pain ??? Plantar fasciitis of right foot ??? AUSTIN (obstructive sleep apnea) A. PSG [...] 4 hrs 6.7% ??? HLD (hyperlipidemia) ??? Morbid obesity with BMI of 50.0-59.9, adult Bariatric Surgery Program 1. Attended Introduction to the [facility] [place] seminar, a comprehensive two hour meeting that provides a program overview, education on bariatric surgeries offered at [facility], risks andbenefits, as well as patient expectations and follow up: 06/17/15 [facility] Educational seminars viewed: Grades on post-testin%;100%; 100% The BSP Educational Handbook is provided at preoperative visit #1. 2. Pre-operative programmatic evaluations required: PCP evaluation and letter of support to proceedwith surgery, BSP labwork (can be done on day of visit #1) and psychological evaluation- minimum of2 visits. 3. Bariatric Surgery Program evaluations with RD and CLINICAL PSYCHOLOGIST: Not scheduled 4. Weight history: 11/09/09- 390.9#; 03/22/11- 356.9#; 01/03/12- 381.4#; 05/08/12- 369.9#; 10/14/12- 383.6#; 11/12/13- 343.5#; 07/08/15- 392.8# (starting weight) 5. Gallbladder status: intact; not studied 6. Insurer specific requirements: [place] BCBS 3 months medically supervised weight loss 7. BSP Team meeting discussion: No. Patient insight into causes of obesity: onset of obesity age 22. Attributes weight gain to over consumption. ??? Acrochordon Past Medical History Diagnosis Date ??? HLD (hyperlipidemia) ??? Morbid obesity ??? AUSTIN (obstructive sleep apnea) Past Surgical History Procedure Laterality Date ??? Pro upper gi endoscopy, diagnostic N/A 04/04/2016 EGD, UPPER GI ENDOSCOPY performed by Julia Ashraf MD at [facility] ENDOSCOPY ??? Pro colonoscopy, diagnostic N/A 04/04/2016 COLONOSCOPY, DIAGNOSTIC performed by Julia Ashraf MD at [facility] ENDOSCOPY ??? Pro upper gi endoscopy, biopsy N/A 04/04/2016 UPPER GASTROINTESTINAL ENDOSCOPY,WITH BIOPSY SINGLE OR MULTIPLE performed by Julia Ashraf MD at [facility] ENDOSCOPY Social History Substance Use Topics ??? Smoking status: Former Smoker Packs/day: 0.50 Years: 2.00 Types: Cigarettes Quit date: 12/28/2015 ??? Smokeless tobacco: Never Used ??? Alcohol use Yes Comment: special occasions History Drug Use Not on file No Known Allergies Medications: MAR and/or home medications have been reviewed. Physical Exam: There were no vitals filed for this visit. There is no height or weight on file to calculate BMI. Airway Assessment: Mallampati: II TM distance: >3 FB Neck ROM: full Cardiovascular Assessment: Rhythm: regular Pulmonary Assessment: breath sounds clear to auscultation Dental Assessment: Misc Assessment: Anesthesia Plan: ASA 3 general, with a(n) intravenous induction Konstantin Hickey is a 35 y.o. morbidly obese male with AUSTIN, GERD, iron deficiency anemia (last two hgb12.5), HTN, HLD scheduled for laparoscopic gastroplasty, endoscopy and laparoscopic liver biopsy. No cardiac, hepatic, renal disease or coagulopathy. No prior GA records NKA Labs reviewed NPO Status: --- Anesthetic Plan: GA with ETT, RSI Standard ASA monitoring PIV access SHASHANK PICKARD DO 05/15/2016 Attending: I have seen and examined the patient. I have reviewed the medical record and pertinent laboratory information. I have noted the major medical issues to include morbid obesity and sleep apnea. I have reviewed risks from minor to major as outlined in the anesthesia consent form. I have highlighted risks related to perioperative obesity, sleep apnea, and opioid therapy including addiction. The patient acknowledged these risks and would like to proceed with the anesthesia plan. Region - Other Informed Consent: Anesthetic plan and risks discussed with patient. Use of blood products discussed with patient who consented to blood products. Plan discussed with resident. PAT Staff Note documented in this encounter [...] Indication for (Active or Suspected): Prophylaxis Given 05/16/2016 7:43 AM EDT 3 g dexmedetomidine (PRECEDEX) injection PRN, Starting on Sat05/16/16 at 0826, Until Sat05/16/16 at 1146, Anesthesia Intra-op, Routine Given 05/16/2016 11:04 AM EDT 2 mcg Given 05/16/2016 10:48 AM EDT 2 mcg Given 05/16/2016 10:27 AM EDT 2 mcg dexmedetomidine (PRECEDEX) IV infusion (anesthesia) CONTINUOUS PRN, Starting on Sat05/16/16 at 0742, Until Sat05/16/16 at 1146, Anesthesia Intra-op, Routine New Bag 05/16/2016 7:42 AM EDT 0.4 mcg/kg/hr 16.9 mL/hr glycopyrrolate (ROBINUL) multi-dose injection PRN, Starting on Sat05/16/16 at 1111, Until Sat05/16/16 at 1146, Anesthesia Intra-op, Routine Given 05/16/2016 11:11 AM EDT 0.8 mg labetalol (NORMODYNE,TRANDATE) multi-dose injection PRN, Starting on Sat05/16/16 at 0744, Until Sat05/16/16 at 1146, High Blood Pressure, Anesthesia Intra-op, Routine Given 05/16/2016 7:44 AM EDT 10 mg lactated ringers infusion 1,000 mL 1,000 mL, at 100 mL/hr, Intravenous, CONTINUOUS, Starting on Sat05/16/16 at 0630, Until Sat05/16/16 at 2016, Day of Surgery (Day of Procedure) New Bag 05/16/2016 7:27 AM EDT New Bag 05/16/2016 6:53 AM EDT 1,000 mLs 100 mL/hr midazolam (PF) (VERSED) 1 mg/mL multi-dose injection PRN, Starting on Sat05/16/16 at 0730, Until Sat05/16/16 at 1146, Sleep, Anesthesia Intra-op, Routine Given 05/16/2016 7:43 AM EDT 1 mg Given 05/16/2016 7:30 AM EDT 1 mg neostigmine (PROSTIGMINE) multi-dose injection PRN, Starting on Sat05/16/16 at 1111, Until Sat05/16/16 at 1146, Anesthesia Intra-op, Routine Given 05/16/2016 11:11 AM EDT 5 mg propofol (DIPRIVAN) 10 mg/mL bolus injection (Anesthesia) PRN, Starting on Sat05/16/16 at 0738, Until Sat05/16/16 at 1146, Anesthesia Intra-op Given 05/16/2016 7:47 AM EDT 100 mg Given 05/16/2016 7:38 AM EDT 200 mg rocuronium (ZEMURON) multi-dose injection PRN, Starting on Sat05/16/16 at 0747, Until Sat05/16/16 at 1146, Anesthesia Intra-op, Routine Given 05/16/2016 10:43 AM EDT 10 mg Given 05/16/2016 10:23 AM EDT 10 mg Given 05/16/2016 9:55 AM EDT 20 mg succinylcholine (ANECTINE) injection PRN, Starting on Sat05/16/16 at 0746, Until Sat05/16/16 at 1146, Anesthesia Intra-op, Routine Given 05/16/2016 7:46 AM EDT 200 mg documented in this encounter Care Teams Sports Specialist Relationship Specialty Start Date End Date Radhika Xiao, LABORATORY MECHANIC HELPER [address] [place] [address] PCP - General Family Medicine 03/28/16 documented as of this encounter
--- OUTSIDE RECORDS SUMMARY | 2024-05-25 13:08 | XMS_ITS | Encounter Summary ---
Author Organization [facility] [place] [address] Care Team Providers Care Director Of Billing Name Role Phone Radhika Xiao APRN Primary Care Provider Reason for Visit * Reason Comments Establish Care Encounter Details Date Type Department Care Team (Late st Contact Info) Description 04/10/2016 10:30 AM EDT Office [place] [address] Juan Thomas MD [facility] [place] [address] Morbid obesity with BMI of 50.0-59.9, adult Social History Tobacco Use Types Packs/Day Years [...] Sign Reading Time Taken Comments Blood Pressure 154/67 04/10/2016 10:15 AM EDT Pulse 65 04/10/2016 10:15 AM EDT Temperature - - Respiratory Rate - - Oxygen Saturation 99% 04/10/2016 10:15 AM EDT Inhaled Oxygen Concentration - - Weight 183.3 kg (404 lb) 04/10/2016 10:15 AM EDT Height 182.8 cm (5' 11.97) 04/10/2016 10:15 AM EDT Body Mass Index 54.84 04/10/2016 10:15 AM EDT documented in this encounter Progress Notes * Juan Thomas MD - 04/10/2016 10:30 AM EDT Konstantin Hickey is a 35 y.o. male who is here today to discuss bariatric surgery. He has been through our Bariatric Surgery Program and has been found eligable for obesity surgery based on NIH criteria. He has gone through the required number of support group meetings and is very familiar with the p rocedure and also the risks and benefits. Past Medical History Diagnosis Date ??? HLD (hyperlipidemia) ??? Morbid obesity ??? AUSTIN (obstructive sleep apnea) Past Surgical History Procedure Laterality Date ??? Pro upper gi endoscopy, diagnostic N/A 04/04/2016 EGD, UPPER GI ENDOSCOPY performed by Julia Ashraf MD at [facility] ENDOSCOPY ??? Pro colonoscopy, diagnostic N/A 04/04/2016 COLONOSCOPY, DIAGNOSTIC performed by Julia Ashraf MD at [facility] ENDOSCOPY ??? Pro upper gi endoscopy, biopsy N/A 04/04/2016 UPPER GASTROINTESTINAL ENDOSCOPY,WITH BIOPSY SINGLE OR MULTIPLE performed by Julia Ashraf MD at [facility] ENDOSCOPY Patient Active Problem List Diagnosis Code ??? Acrochordon L91.8 ??? Morbid obesity with BMI of 50.0-59.9, adult Z68.43 ??? AUSTIN (obstructive sleep apnea) G47.33 ??? HLD (hyperlipidemia) E78.5 ??? Depression F32.9 ??? History of tobacco abuse Z87.891 ??? Daytime somnolence R40.0 ??? Gastroesophageal reflux K21.9 ??? Allergic rhinitis J30.9 ??? Pain in right shoulder M25.511 ??? Low back pain M54.5 ??? Plantar fasciitis of right foot M72.2 ??? Prediabetes R73.09 ??? GAYLE (iron deficiency anemia) D50.9 ??? ferrous sulfate 325 mg (65 mg iron) Tablet ??? ascorbic acid, vitamin C, (VITAMIN C) 500 mg Tablet ??? cholecalciferol, Vitamin D3, (VITAMIN D-3) 2,000 unit Tablet ??? omeprazole (PRILOSEC) 40 mg Capsule, Delayed Release(E.C.) ??? buPROPion (WELLBUTRIN) 100 mg Tablet ? ? Glucosamine &Indjzockr-HK-Awh7 660-729-84-0.5 mg Tablet ??? fish oil-omega-3 fatty acids 1,000 mg Capsule ??? naproxen (NAPROSYN) 500 mg Tablet ??? albuterol (PROVENTIL HFA;VENTOLIN HFA) 90 mcg/actuation inhaler ? ? MULTIVIT &MINERALS/FERROUS FUM (MULTI VITAMIN ORAL) No Known Allergies His history otherwise is well documented in the workup by Rebeca Jiménez APRN He had a number of questions regarding the procedure and I spent approximately 15 to 20 minutes of our 30-minute visit discussing the pros and cons of bariatric surgery and our outcomes here at [facility]. We went over the small but significant risks of anastomotic leak and deep vein thrombosis, as well as associated with the procedure. He is very understanding of the serious nature of this procedure and would like to go ahead with surgery. We have tentatively made arrangements for his surgery to be scheduled some time in the near future, and I would be happy to see him on a p.r.n. basis should other problems develop in the interim. documented in this encounter Plan of Treatment Not on file documented as of this encounter Visit Diagnoses Diagnosis Morbid obesity with BMI of 50.0-59.9, adult Morbid obesity documented in this encounter Care Teams Director Of Billing Relationship Specialty Start Date End Date Radhika Xiao APRN [address] [facility] [facility] [address] PCP - General Family Medicine 03/28/16 documented as of this encounter
--- OUTSIDE RECORDS SUMMARY | 2024-05-25 13:08 | XMS_ITS | Encounter Summary ---
[place] [address] Care Team Providers Care Brick Carrier Name Role Phone Marti Watkins POULTRY PROCESSING SUPERVISOR Primary Care Provider [phone]- [phone] Encounter Details Date Type Department Care Team (Late st Contact Info) Description 02/20/2016 Telephone [place] [phone] Evette Adler Social History Tobacco Use Types Packs/Day Years Used Date Smoking Tobacco: Never Sex and Gender Information Value Date Recorded Sex Assigned at Not on file Gender Identity Male 07/07/2018 3:10 PM EDT Sexual Orientation Not on file documented as of this encounter Miscellaneous Notes * Telephone Encounter - Evette Adler - 02/20/2016 2:22 PM EDT Konstantin called to check on where he is in the BSP process. He said that he spoke with Betzy 3 weeks ago and that he has been using his Cpap machine since that time. I told him that we would need his Cpap compliance summary after another week of him using it and explained how to get that information and that it only needs to be a one page document. Konstantin said that he would look into that. Konstantin said that he sent his dietary notes to Betzy through [facility]. I told him that I would check in with Betzy tomorrow and give him a call after 2pm to let him know where he is in the program. documented in this encounter Plan of Treatment Not on file documented as of this encounter Visit Diagnoses Not on filedocumented in this encounter Care Teams Brick Carrier Relationship Specialty Start Date End Date Marti Watkins APRN [facility] [address] [place] [address] PCP - General 12/01/13 03/27/16 documented as of this encounter
--- OUTSIDE RECORDS SUMMARY | 2024-05-25 13:08 | XMS_ITS | Encounter Summary ---
[place] [address] Care Team Providers Care Embosser Apprentice Name Role Phone Marti Watkins APRN Primary Care Provider [phone]- [phone] Encounter Details Date Type Department Care Team (Late st Contact Info) Description 03/20/2016 Telephone [place] [phone] Evette Adler Social History Tobacco Use Types Packs/Day Years Used Date Smoking Tobacco: Never Sex and Gender Information Value Date Recorded Sex Assigned at Not on file Gender Identity Male 07/07/2018 3:10 PM EDT Sexual Orientation Not on file documented as of this encounter Miscellaneous Notes * Telephone Encounter - Evette Adler - 03/20/2016 8:41 AM EDT LMOM for Konstantin to call back to schedule an appointment (NPW). He needs non- fasting labs which he can get drawn before or after his appointment. documented in this encounter Plan of Treatment Not on file documented as of this encounter Visit Diagnoses Not on filedocumented in this encounter Care Teams Embosser Apprentice Relationship Specialty Start Date End Date Marti Watkins APRN [facility] [address] [place] [address] PCP - General 12/01/13 03/27/16 documented as of this encounter
--- OUTSIDE RECORDS SUMMARY | 2024-05-25 13:08 | XMS_ITS | Encounter Summary ---
Author Organization [facility] [place] [place] [address] Care Team Providers Care Turbinated Bone Grinder Name Role Phone PatrickMarti calhoun Rafia DUARTE Primary Care Provider [phone]- [phone] Encounter Details Date Type Department Care Team (Late st Contact Info) Description 02/21/2016 Telephone General Surgery at [facility] [place] [phone] Rebeca Jiménez INSTRUMENT TECHNOLOGIST [facility] [address] Social History Tobacco Use Types Packs/Day Years Used Date Smoking Tobacco: Never Sex and Gender Information Value Date Recorded Sex Assigned at Not on file Gender Identity Male 07/07/2018 3:10 PM EDT Sexual Orientation Not on file documented as of this encounter Miscellaneous Notes * Telephone Encounter - Rebeca Jiménez APRN - 02/21/2016 10:04 AM EDT Bariatric Surgery Program Pre-visit Chart Review Chart review was done. Attempted to contact Konstantin Nguyễnmagda to discuss his BSP chart review but no answer and left a message with call back number. _X___ Initial appointments cannot be made at the current time because the following information is needed: Lab _X__ Missing labwork can be done on day of initial visit Sleep Center: _X__ copy of sleep study or CPAP titration is needed _X__ copy of CPAP compliance data after 30 days use Other: _X__ h/o GERD. Unclear if he has undergone an EGD in the past. Will inquire when patient calls back. If he has not undergone an EGD then recommend EGD with biopsies to evaluate for Valentine's esophagus and H. Pylori. Addendum 02/21/2016 at 1422: Mr Foreman returned my phone call. He reports no GERD or dyspeptic symptoms for the past 5-6 years and has not required PPI, H2 blockers or OTC antacids. He admits to takingAleve 2 tablets once every couple of months for treatment of back pain after standing for a prolonged period of time. No EGD indicated at this time given that he is asymptomatic. Recommend that he avoid or minimize use of NSAID's and he is amenable to this. Instructed Mr Hickey to fax his compliance summary after 30 days of using CPAP and will schedule NPW. I did my best to answer all of his questions. documented in this encounter Plan of Treatment Not on file documented as of this encounter Visit Diagnoses Not on filedocumented in this encounter Care Teams Turbinated Bone Grinder Relationship Specialty Start Date End Date Marti Watkins APRN [facility] [address] [place] [address] PCP - General 12/01/13 03/27/16 documented as of this encounter
--- OUTSIDE RECORDS SUMMARY | 2024-05-25 13:08 | XMS_ITS | Encounter Summary ---
Author Organization [facility] [place] [address] Care Team Providers Care Certified Bench Jeweler Technician Name Role Phone Radhika Xiao GERALD Primary Care Provider [phone] Encounter Details Date Type Department Care Team (Late st Contact Info) Description 04/04/2016 Telephone General Surgery at [facility] [place] [phone] Rebeca Jiménez SOCIAL WORK PROFESSOR [facility] [place] [address] Social History Tobacco Use Types Packs/Day Years [...] Telephone Encounter - Rebeca Jiménez APRN - 04/04/2016 5:20 PM EDT Contacted Konstantin quiñones: EGD that revealed LA grade C esophagitis, there was a nodular area in the distal esophagus, Z-line was regular and was found 40 cm from the incisors, normal stomach and duodenum.The biopsies are pending. His colonoscopy revealed an entirely normal colon including terminal ileum. Will review the case with Dr. Thomas and consider video capsule after discussing the case with the Dr. Thomas. Recommendations: Prilosec 40 mg qd. documented in this encounter Plan of Treatment Not on file documented as of this encounter Visit Diagnoses Diagnosis Reflux esophagitis documented in this encounter Care Teams Certified Bench Jeweler Technician Relationship Specialty Start Date End Date Radhika Xiao APRN [address] [place] [address] PCP - General Family Medicine 03/28/16 documented as of this encounter
--- OUTSIDE RECORDS SUMMARY | 2024-05-25 13:08 | XMS_ITS | Encounter Summary ---
Author Organization [facility] Address [facility] [place] [address] Care Team Providers Care Chronometer Assembler And Adjuster Name Role Phone Radhika Xiao GERALD Primary Care Provider [phone] Reason for Visit * Reason Comments Morbid Obesity * Auth/Cert Specialty Diagnoses / Procedures Referred By Kitty carrion Referred To Contact Diagnoses GAYLE of unclear etiology, preop evaluation for Bariatric surgery. Evaluate for upper GI pathology. Pls obtain biopsies for celiac disease. Procedures PRO UPPER GI ENDOSCOPY, DIAGNOSTIC PRO COLONOSCOPY, DIAGNOSTIC PRO ANESTH, UGI ENDOSCOPY PRO ANESTH, INTESTINE, SCOPE, LOW EGD, UPPER GI ENDOSCOPY COLONOSCOPY, DIAGNOSTIC Referral ID Status Reason Start Date Expiration Date Visits Re quested Visits Authorized [id number] 1 1 Encounter Details Date Type Department Care Team (Late st Contact Info) Description 04/04/2016 9:30 AM EDT Office [place] [address] Dorys Rivers APRN [facility] [place] [address] Morbid obesity with BMI of 50.0-59.9, adult; Iron deficiency anemia, unspecified iron deficiency anemia [...] Sign Reading Time Taken Comments Blood Pressure 137/84 04/04/2016 9:12 AM EDT Pulse 72 04/04/2016 9:12 AM EDT Temperature - - Respiratory Rate - - Oxygen Saturation 99% 04/04/2016 9:12 AM EDT Inhaled Oxygen Concentration - - Weight 182.8 kg (403 lb) 04/04/2016 9:12 AM EDT Height - - Body Mass Index 56.61 03/28/2016 7:52 AM EDT documented in this encounter Patient Instructions * Patient Instructions* Rebeca Jiménez APRN - 04/04/2016 9:30 AM EDT BARIATRIC SURGERY PROGRAM SECOND VISIT Contact information: [facility] Admin coordinator Jenny: [phone] Dietitians: [phone] Surgeons/ nurse practitioners: [phone] Nurse line: [phone] 1. Pending information: upper endoscopy and colonoscopy scheduled 04/04/2016. Have copy of ongoing counseling faxed to [facility] . ?? Lab work before preoperative visit to be determined after you meet with Dr. Thomas. The orders areplaced and present to 3L. 2. Ongoing weight loss is encouraged. There is a no weight gain policy between visits. The surgeon may opt to delay your surgery if you gain weight between visits. 3. Bring the Educational Handbook to the surgeon's visit. 4. After your surgical consultation, all pertinent information will be faxed to your insurer for approval, which can take a few weeks. Your surgery date and pre-operative class will be scheduled after your appointment with Dr. Thomas on04/10/2016 at 10:30.----- Call Gisselle the next day at [phone] to schedule. Your surgery date may change if insurance approval is delayed Prepare for the Pre-op Class by doing the followin. Review the program handbook and come to class with a list of questions. 2. Watch the educational videos including Psychological Implications of bariatric surgery on the [facility] website under Bariatric Surgery ([email or web address]) 3. Come prepared to the class to discuss meal planning. 4. Bring your supplements 5. Come with tips and suggestions that my be helpful to others. Questions for your doctor, specialist or pharmacist: 5. Ask your doctor about medication suggestions if you currently take medications that are largerthan the size of a tylenol. Large pills need to be crushed (if permitted by the drug primary grade teacher) or taken in liquid form for TWO WEEKS after surgery. Diabetic oral medication often does not need katarina taken after surgery) ?? If you take antinflammatory medications or steroid medicationsfor arthritis or asthma, please check with your doctor. These medications will likely need to be held 1 week prior to and at least a few weeks after surgery. For women who take control or hormone medications and men who take hormone medications: thesemedications must be stopped 1 month before and after surgery. Use alternative forms of control. Bariatric surgery apps- [facility] facebook page: [email or web address] documented in this encounter Progress Notes * Rebeca Jiménez APRN - 04/04/2016 9:30 AM EDT Reason for visit: Konstantin is a 35 y.o. year-old male who presents for review of progress since initial visit, and discussion of risks and benefits of bariatric surgery. Mr. Hickey's bariatric procedure of choice: BERRYY gastric bypass with Dr. Thomas. History of present illness: see notes from 03/30/2016. He reports reading the handbook. He reports applying the 30-30-30 rule that he read from the handbook since his first visit for bariatric surgeryevaluation. He reports walking up to 5 miles per day at work. He reports using his CPAP every night 4-5 hours per day. He reports that his last alcoholic drink was at the end of February. Received the office notes from his primary care provider, Radhika Xiao APRN dates: 01/09/2016, 02/06/2016 and 03/15/2016. Documented weights reviewed (383# on 01/09/16, 368# on 02/06/16, 365# on 03/15/16) He is scheduled for upper endoscopy and colonoscopy today for evaluation of iron deficiency. BARIATRIC SURGERY PROGRAM PATHWAY Review of progress with the requirements of the Bariatric Surgery Program: 1. Education: He has attended a Introduction to the [facility] Bariatric Surgery Program seminar, a comprehensive two hour meeting that provides a program overview, education on bariatric surgeries offered at [facility], risks and benefits, as well as patient expectations and follow up, in 06/17/2015. [facility] Bariatric Surgery Program Educational seminars viewed: 10/24/2015. 3. Grades on post- testin% and 100% x 2. The BSP Educational Handbook is provided at visit #1. 2. Pre-operative programmatic evaluations: PCP evaluation and letter of support to proceed with surgery, BSP lab work and psychological evaluation 3. Bariatric Surgery Program evaluations with RD and BEE RANCHER: today. 4. Weight history: 390.9# on 11/09/09; 356.9# on 03/22/11; 381.4 on 01/03/12; 369.9# on 05/08/12; 383.6#on 11/12/13; 388.5# on 11/16/14; 392.8# on 07/08/15; 378.4# on 09/15/15; 400.4# on 10/13/15; 380# on 11/14/15; 390# on 12/12/15. WT at visit #1: 408# 5. Gallbladder status: intact, not studied. 6. Insurer specific requirements: [place] [employer]BS 3 months medically supervised weight loss 7. BSP Team meeting discussion: no indication 8. Next steps in pathway: ?? Since all BSP requirements and testing have been completed: surgical consultation has been scheduled with Dr. Thomas. ?? Following surgical consultation, if approved to proceed to surgery by surgeon and insurer: an operative date and Pre-operative Education Class, a 2 hour class taught by the Bariatric BEE RANCHER and RD will be scheduled ?? During hospitalization for bariatric surgery, a standard bariatric surgery order set is followed. ?? Routine post-operative follow up with labwork is done at months 1,4,12,18 and 24, yearly thereafter, and PRN. High risk patients are followed more frequently. Patient Active Problem List Diagnosis Code ??? Acrochordon L91.8 ??? Morbid obesity with BMI of 50.0-59.9, adult Z68.43 ??? [place]IN (obstructive sleep apnea): A. PSG [...] %>4 hrs 93.3%; < 4 hrs 6.7% G47.33 ??? HLD (hyperlipidemia) E78.5 ??? Depression F32.9 ??? History of tobacco abuse: --Quit cigarettes and chewing tobacco on 08/2015 but experienced a few relapses but tobacco free 2-3 months. Z87.891 ??? Daytime somnolence R40.0 ??? H/o Gastroesophageal reflux: pt denies GERD symptoms for the past 5-6 years. K21.9 ??? Allergic rhinitis J30.9 ??? Musculoskeletal Issues: --Pain in right shoulder: working with physical therapy --Low back pain --Plantar fasciitis of R foot M25.511 ??? Prediabetes: --03/28/16: HbA1C 5.7 ? Iron Deficiency Anemia: --Lab 03/30/16: CBC (H/H 12.5/39.3); ferritin 42; iron 42; TIBC 344; iron%12; B12 678; folate 11.7 --Lab 03/30/16: IgA 142; TTg IgA Ab <1.2 PSHx: none Allergies: NKDA Medication: reviewed in edh ??Anesthesia history (per patient): denies untoward events ? Screening/other: Date Evaluation Results 2016 Primary care ?? Never Colonoscopy ?? Never DEXA ?? Recent diagnostic screening/ evaluations since initial visit: --Lab work obtain on 03/30/16 revealed an iron deficiency anemia of unclear etiology and celiac serologies are negative. He is scheduled for upper endoscopy and colonoscopy today. Await results for further management. Consider video capsule. --He denies undergoing other work up since new patient visit for bariatric surgery. Changes to review of systems/ medications since initial visit: he reports starting ferrous sulfate 325 mg daily in conjunction with vitamin C 500 mg qd. He will start vitamin D3 2000 units per day. Overall changes to comorbidities are noted in Updated Problem list. Review of plans for post-operative support after discharge: Karin (significant other) Exam: no physical exam performed. Vital Signs: BP 137/84;P 72;Ht 5'10.75;Wt 403#;BMI 56.61 Discussion of bariatric surgeries performed at [facility], risks and benefits, and the [facility] Bariatric Surgery Program requirements: The risks of immediate and halfway complications as well as the benefits of gastric bypass and sleeve gastrectomy surgeries, as outlined extensively in the Bariatric Surgery Program Handbook, whichis a >100 page document, were reviewed. He is aware that all bariatric surgeries are elective procedures. The mechanism by which gastric bypass and sleeve gastrectomy surgeries lead to weight loss was reviewed. The concept that bariatric surgery is a tool for weight loss and not a cure for obesity was again emphasized. The need for commitment to halfway lifestyle changes, with healthy diet and regular physical activity was stressed to achieve and sustain halfway weight loss. Benefits of bariatric surgery discussed: ?? estimated loss of 50% - 70% of excess body weight with gastric bypass and sleeve gastrectomy, generally less weight loss after sleeve gastrectomy. Patients rarely achieve ideal body weight, especially patients with BMIs >50. ?? improvement or resolution of weight related comorbidities such as obesity- related hypertension, sleep apnea, NAFLD/ ROSADO, esophageal reflux, restrictive lung disease and hyperlipidemia when anticipated weight loss is achieved. ?? Type 2 diabetes improvement occurs in the majority of patients shortly after gastric bypass, often prior to discharge from the hospital, prior to any weight loss. Patients with >10 year historyof diagnosis of type 2 diabetes often will need to remain on insulin buttermaker helper. There is less improvement to type 2 diabetes after sleeve gastrectomy as compared with gastric bypass. ?? patients also generally feel better, with improvement in self-esteem and activity levels. Potential but rare risks of gastric bypass and sleeve gastrectomy discussed: ?? inability to perform the operation ?? <0.01%. ?? bleeding and splenic injury with the need for blood transfusion ?? heart and lung complications, including prolonged mechanical ventilation and possible tracheostomy, very rare ?? wound infection and seroma, rare in laparoscopic patients ?? DVT with fatal pulmonary emboli. Prophylactic measures used including Enoxaparin, sequential compression devices and early ambulation. Some patients are discharged on extended Enoxaparin therapy who meet scoring criteria ?? rhabdomyolysis ?? nutritional deficiencies, including protein-calorie malnutrition, vitamins B12, B1, D, folate, iron deficiency and anemia. ?? gallstones, significantly decreased by prophylactic treatment with Ursodiol for 6 months post-operatively. ?? peripheral neuropathy related to chronic poor nutrition or B vitamin deficiencies ?? transient telogen effluvium ?? patients weighing >350 pounds with increased risks related to radiology equipment weight limits, which may necessitate return to OR for evaluation Risks specific to gastric bypass discussed: ?? anastomotic leakage with the development of peritonitis and abscess, potentially leading to sepsis, renal failure and . ?? anastomotic stricture ?? Lifetime risk of anastomotic ulcer, increased with NSAID use, tobacco and regular alcohol use ?? lifetime risk of small bowel obstruction ?? lifetime risk of internal and trocar site hernias, rare ?? potential risk for renal calculi, increased with chronic poor hydration and prior history of renal calculi Risks specific to laparoscopic sleeve gastrectomy discussed: ?? leak at the staple line with the development of peritonitis and abscess, potentially leading to sepsis, renal failure and . The rate of leak after sleeve at [facility] is 0%. ?? stricture of gastric remnant with need for dilatation ?? prolonged nausea and vomiting early post surgery ?? Worsening or development of GERD ?? Potential revision to gastric bypass due to severe GERD ?? generally less weight loss than gastric bypass Potential secondary effects of bariatric surgeries discussed: ?? weight regain/ poor weight loss influenced by eating behaviors and lack of a regular exercise program. Drinking high calorie liquids, frequent snacking or ingestion of large amounts of soft foods will cause weight gain . ?? dumping syndrome associated with gastric bypass ?? Lactose intolerance associated with gastric bypass ?? sagging skin in any area, such as the face, torso and extremities following weight loss. Body contouring surgery may not be a covered benefit by the individual's insurer, and is associated with scarring, risk of infection etc. Patients are advised that if unable to accept the possibility of skinredundancy following weight loss, then they should not proceed with bariatric surgery. Bariatric surgery is done for health reasons, not to improve physical appearance. ?? transfer of addictions or symptom substitution behavior. When food is no longer available to secure a sense of comfort and/or relieve stress, some may turn to alcohol or illicit substances, while others may turn to excessive shopping, gambling or other indiscretions. ?? Worsening of psychiatric illness Konstantin was advised that bariatric surgery would likely be ineffective for those who: ?? receive a great deal of satisfaction from eating ?? have active eating disorders including binge eating disorder and bulimia ?? are in the midst of serious personal or unstable psychiatric problems Other information discussed: For females of child-bearing age: avoidance of for at least 12-18 months post-operatively. Use of contraception is recommended. Bariatric Surgery Follow up for LIFE: ?? 3 weeks, 4, 8, 12,18 and 24 months, yearly thereafter. More frequent follow up done as clinically indicated. Labwork: done at all routine visits except 1 month post op Post-operative support group meetings: held on the first Saturday of every month. All patients are encouraged to attend. Vitamin and mineral supplementation for LIFE: ?? B12 500 mcg sublingual daily, calcium citrate 500-600 mg with vitamin D 400- 500 mg BID, multivitamins with minerals and iron twice a day. Iron in the form of ferrous fumarate or carbonyl iron is taken with vitamin C once a day for menstruating females or those with iron deficiency or anemia. He appeared to have a good understanding of the information presented at today's meeting, and seemsto have reasonable and realistic expectations of bariatric surgery. He previously signed an agreement stating that He is willing to comply with instructions, lifetime vitamin and mineral supplements and programmatic follow up. Assessment/ Plan: 35 y.o. year old male with Class III obesity with obesity-related subclinical risk factors including prediabetes, hyperlipidemia, obstructive sleep apnea, occasional aches and pains, fatigue, mild psychopathology and mild impairment of well being. Currently, bariatric surgery is the best treatment available for morbid obesity, providing the only mechanism for reproducible, effective, and sustained weight loss. Mr.. Hickey is interested in a laparoscopic approach to bariatric surgery, and meets BSP requirements. He is aware that conversion to an open procedure is possible. ??? His Bariatric Surgery VTE Risk Assessment score, as determined at visit #1 is 3, which indicates that enoxaparin 40 mg SQ BID is recommended during inpatient stay as well as 10 days post discharge. Mr. Hickey has met the requirements of the [facility] Bariatric Surgery Program, and has an appointment today for surgical consultation. He was encouraged to call with any questions or concerns. Data reviewed: Visit #2 questionnaire Lab results Information reviewed with patient: 1. [facility] Bariatric Surgery Program Educational Handbook, bariatric surgery patient agreement and risks and benefits of gastric bypass and sleeve gastrectomy reviewed in detail. Pending/ other: - Upper endoscopy and colonoscopy today 04/04/2016 - Ongoing counseling notes - Ongoing weight loss encouraged OR date: TBD Preop class recommendations: VTE 3; PPI; Ursodiol Time spent in counseling: Individual planning and coordination of care: 5 minutes Group counselin minutes Questions regarding [facility] Bariatric Surgery Program patients: please call Madhavi Jiménez APRN or Abiodun Rivers APRN at [phone] or [phone] [phone]. * Myrtle Farris - 04/04/2016 9:30 AM EDT BARIATRIC SURGERY PROGRAM NUTRITION EDUCATION 2nd Pre-Operative Visit Shared Medical Appointment Konstantin Hickey attended a 2 hour shared medical appointment today for his second pre-operative visit with the Bariatric Surgery Program dietitian and nurse practitioner. Mr. Hickey is a morbidly obese male who has been referred for nutrition evaluation and diet instruction in anticipation of bariatric surgery. Previous conservative attempts at weight loss through dieting have been unsuccessful over the halfway. Advised patient that bariatric surgery is a weight loss tool not a solution; and ultimately weight loss will be achieved through proper eating and exercise habits. He was given suggestions for how toincorporate dietary and lifestyle changes into his daily schedule. Patient was given a copy of the program handbook at the initial appointment which includes specific information on all nutritional recommendations and guidelines. He was also given contact information for further nutritional questions. Mr. Hickey showed good understanding of the concepts discussed. Nutrition Topics Covered at Today's Appointment: ?? Pre-operative Surgical Diet ?? Purpose of diet ?? Appropriate foods ?? Protein goals ?? Carbohydrate goals ?? Calorie goals ?? Keeping a food log ?? Hydration and Appropriate Beverages ?? Post-Operative Diets (Stages I-IV) ?? Importance of following diet stages ?? Appropriate foods ?? Sample Menus ?? Vitamin/Mineral Supplementation ?? Common Food Intolerances ?? Dumping Syndrome ?? Sugar Alcohols ?? Physical Activity The appointment consisted of 60 minutes of group education and counseling. documented in this encounter Plan of Treatment Not on file documented as of this encounter Results * (ABNORMAL) Iron and TIBC (04/30/2016 1:53 PM EDT) Iron 55 45 - 160 mcg/dL [facility] TIBC 332 250 - 450 mcg/dL [facility] Iron Saturation 17(L) 20 - 50 % [facility] Blood specimen (specimen) 04/30/2016 1:53 PM EDT 04/30/2016 2:07 PM EDT Narrative Resulting Agency Comment Spec In Lab Juan Thomas MD CHEMISTRY ORDERABLES Performing Organization Address [facility]/ZIP Co de Phone Number [facility] [place] [address] * Ferritin (04/30/2016 1:53 PM EDT) Ferritin 62 30 - 400 ng/mL [facility] Comment: Pediatric reference ranges not verified at [facility], interpret with caution. Reference ranges for females greater than 50 years of age approach values for men, i.e., 30-400 ng/mL. Blood specimen (specimen) 04/30/2016 1:53 PM EDT 04/30/2016 2:07 PM EDT Narrative Resulting Agency Comment Spec In Lab Juan Thomas MD CHEMISTRY ORDERABLES Performing Organization Address City/[facility]/ZIP Co de Phone Number [facility] [place] [address] documented in this encounter Visit Diagnoses Diagnosis Morbid obesity with BMI of 50.0-59.9, adult Morbid obesity Iron deficiency anemia, unspecified iron deficiency anemia type documented in this encounter Care Teams Chronometer Assembler And Adjuster Relationship Specialty Start Date End Date Radhika Xiao, STATION SUPERVISOR [address] [place] [address] PCP - General Family Medicine 03/28/16 documented as of this encounter
--- OUTSIDE RECORDS SUMMARY | 2024-05-25 13:08 | XMS_ITS | Encounter Summary ---
[place] [address] Care Team Providers Care Chain Puller Name Role Phone Radhika Xiao APRN Primary Care Provider Encounter Details Date Type Department Care Team (Late st Contact Info) Description 04/13/2016 Telephone [place] [phone] Evette Adler Social History Tobacco Use Types [...] * Telephone Encounter - Evette Adler - 04/13/2016 8:05 AM EDT LMOM for Konstantin to let him know that he can have his labs drawn the same day at his Pre-op class (on the ). I told him that these labs are non-fasting and that he can have them drawn before or after his appointment. These orders are already in. documented in this encounter Plan of Treatment Not on file documented as of this encounter Visit Diagnoses Not on filedocumented in this encounter Care Teams Chain Puller Relationship Specialty Start Date End Date Radhika Xiao, INSPECTOR FILTER TIP [address] [place] [address] PCP - General Family Medicine 03/28/16 documented as of this encounter
--- OUTSIDE RECORDS SUMMARY | 2024-05-25 13:08 | XMS_ITS | Encounter Summary ---
[place] [address] Care Team Providers Care Slag Dumper Name Role Phone Radhika Xiao APRN Primary Care Provider Encounter Details Date Type Department Care Team (Late st Contact Info) Description 04/11/2016 Telephone [place] [phone] Evette Adler Social History Tobacco Use Types [...] * Telephone Encounter - Evette Adler - 04/11/2016 9:06 AM EDT LMOM for Mr. Wong to give me a call back to schedule his Pre-op class. He is scheduled for surgery, so he can come to either the pre-op class on the or the . documented in this encounter Plan of Treatment Not on file documented as of this encounter Visit Diagnoses Not on filedocumented in this encounter Care Teams Slag Dumper Relationship Specialty Start Date End Date Radhika Xiao APRN [address] [place] [address] PCP - General Family Medicine 03/28/16 documented as of this encounter
--- OUTSIDE RECORDS SUMMARY | 2024-05-25 13:08 | XMS_ITS | Encounter Summary ---
[facility] [place] [address] Care Team Providers Care Customer Experience Manager Name Role Phone Radhika Xiao APRN Primary Care Provider Reason for Visit * Auth/Cert Specialty Diagnoses / Procedures Referred By Contac t Referred To Contact Diagnoses GAYLE of unclear etiology, preop evaluation for Bariatric surgery. Evaluate for upper GI pathology. Pls obtain biopsies for celiac disease. Procedures PRO UPPER GI ENDOSCOPY, DIAGNOSTIC PRO COLONOSCOPY, DIAGNOSTIC PRO ANESTH, UGI ENDOSCOPY PRO ANESTH, INTESTINE, SCOPE, LOW EGD, UPPER GI ENDOSCOPY COLONOSCOPY, DIAGNOSTIC Referral ID Status Reason Start Date Expiration Date Visits Re quested Visits Authorized [id number] 1 1 Encounter Details Date Type Department Care Team (Late st Contact Info) Description 04/04/2016 2:54 PM EDT Anesthesia [place] [address] Neelam Escobar MD [facility] [place] [address] Margarita Schwartz CRNA [facility] [place] [address] Anesthesia Record Procedure Summary Procedure Name Responsible Anesthesiologist Anesthesia Start Time Anesthesia Stop Time EGD, UPPER GI ENDOSCOPY (WRVU 2.09) (Trunk) Neelam Escobar MD 04/04/16 1454 04/04/16 1604 Events Date Time Event Comment 04/04/2016 1433 1454 AN Verify 1454 Start 1454 An Start Data 1501 Anesthesia Ready 1534 Break/Relief In Pee nelson, MEDICAL CHARGE ENTRY SPECIALIST 1604 an stop data 1604 Recovery or ICU Handoff Betty ent care was transferred to the destination unit staff after review of the patient's medical history, current anesthetic/surgical status and plan, according to the Provider Handoff Checklist. 1604 Stop Meds Name Total IV Lidocaine 100 mg Propofol 70 mg Propofol INF 2,083.92 mg Dexmedetomidine 8 mcg lactated ringers infusion 500 mL * Agents Name O2 O2 Auxiliary Flowmeter 1 * Blood No blood administrations on file. Lines, Drains, and Airways Type Details Placement Removal (RETIRED) Peripheral IV Line - Single Lumen 04/04/16; 1436; median vein right (underside of arm); [id number] catheter system; 20 gauge; Adan Hutchins RN; distraction, tolerated well, appears comfortable; 04/04/16; 17104/04/16 1436 by Jj Hutchins RN 04/04/16 1718 by Deisy Galvez RN Supraglottic Nasopharyngeal Size: 32 Fr; Removal Date: 04/04/16; Removal Time: 171804/04/16 1524 by Margarita Schwartz CRNA 04/04/16 171 by Deisy Galvez RN documented in this encounter Social History [...] Postprocedure Evaluation - Neelam Escobar MD - 04/05/2016 9:17 AM EDT [facility] Department of Anesthesiology Post-procedure Note Patient: Konstantin Hickey Procedure Summary Date Anesthesia Start Anesthesia Stop Room / Location 04/04/16 1454 1604 [facility] END[facility] 2 / [facility] Procedure Diagnosis Surgeon Responsible Provider EGD, UPPER GI ENDOSCOPY (N/A Trunk); COLONOSCOPY, DIAGNOSTIC (N/A Trunk); UPPER GASTROINTESTINAL ENDOSCOPY,WITH BIOPSY SINGLE OR MULTIPLE (N/A ) Preop examination; Iron deficiency anemia, unspecifiediron deficiency anemia type (GAYLE of unclear etiology, preop evaluation for Bariatric surgery. Evaluate for upper GI pathology. Pls obtain biopsies for celiac disease. -CONSULT) Julia Ashraf MD Clark, Jeffrey A, MD All Anesthesia Providers: Anesthesiologist: Neelam Escobar MD MEDICAL CHARGE ENTRY SPECIALIST: Margarita Schwartz CRNA Last (1hr) Vitals: BP Temp Pulse Resp SpO2 Patient Location: PACU/[facility] Level of Consciousness: Awake and Alert Pain [...] Preprocedure Evaluation - Neelam Escobar MD - 04/04/2016 2:33 PM EDT Pre-Anesthesia Evaluation for: Konstantin Hickey a 35 y.o. male. Procedure(s): EGD, UPPER GI ENDOSCOPY COLONOSCOPY, DIAGNOSTIC Patient Active Problem List Diagnosis ??? Prediabetes [...] Surgery Program 1. Attended Introduction to the [facility] Bariatric Surgery Program seminar, a comprehensive two hour meeting that provides a program overview, education on bariatric surgeries offered at [facility], risks andbenefits, as well as patient expectations and follow up: 06/17/15 [facility] BSP Educational seminars viewed: Grades on post-testin%;100%; 100% The [facility] Educational Handbook is provided at preoperative visit #1. 2. Pre-operative programmatic evaluations required: PCP evaluation and letter of support to proceedwith surgery, [facility] labwork (can be done on day of visit #1) and psychological evaluation- minimum of2 visits. 3. Bariatric Surgery Program evaluations with RD and EXERCISE TEACHER: Not scheduled 4. Weight history: 11/09/09- 390.9#; [...] Morbid obesity ??? [place] (obstructive sleep apnea) No past surgical history on file. Social History Substance Use Topics ??? Smoking status: Former Smoker Packs/day: 0.50 Years: 2.00 Types: Cigarettes Quit date: 12/28/2015 ??? Smokeless tobacco: Never Used ??? Alcohol use Yes Comment: special occasions History Drug Use Not on file No Known Allergies Medications: MAR and/or home medications have been reviewed. Physical Exam: Vitals: 04/04/16 1424 BP: 140/84 Pulse: 63 Resp: 16 Body mass index is 57.82 kg/(m^2). Height: 177.8 cm (5' 10) Weight - Scale: (!) 182.8 kg (403 lb) Airway Assessment: Mallampati: II TM distance: >3 FB Neck ROM: full Cardiovascular Assessment: Pulmonary Assessment: Dental Assessment: Misc Assessment: Anesthesia Plan: ASA 2 MAC, with a(n) intravenous induction Region - Other Informed Consent: Anesthetic plan and risks discussed with patient. Plan discussed with MEDICAL CHARGE ENTRY SPECIALIST. PAT Staff Note documented in this encounter Plan of Treatment Not on file documented as of this encounter Visit Diagnoses Not on filedocumented in this encounter Administered Medications Inactive Administered Medications - up to 3 most recent administrations Medication Order MAR Action Action Date Dose Rate Site dexmedetomidine (PRECEDEX) injection PRN, Starting on Sat04/04/16 at 1455, Until Sat04/04/16 at 1604, Anesthesia Intra-op, Routine Given 04/04/2016 2:55 PM EDT 8 mcg lactated ringers infusion 100 mL/hr, Intravenous, CONTINUOUS, Starting on Sat04/04/16 at 1500, Until Sat04/04/16 at 1720, Endoscopy (Day of Procedure) New Bag 04/04/2016 2:55 PM EDT New Bag 04/04/2016 2:37 PM EDT 100 mL/hr 100 mL/hr lidocaine (PF) (XYLOCAINE) 100 mg/5 mL (2 %) injection PRN, Starting on Sat04/04/16 at 1454, Until Sat04/04/16 at 1604, Anesthesia Intra-op, Routine Given 04/04/2016 2:54 PM EDT 100 mg propofol (DIPRIVAN) 10 mg/mL bolus injection (Anesthesia) PRN, Starting on Sat04/04/16 at 1454, Until Sat04/04/16 at 1604, Anesthesia Intra-op Given 04/04/2016 3:01 PM EDT 20 mg Given 04/04/2016 2:54 PM EDT 50 mg propofol (DIPRIVAN) infusion CONTINUOUS PRN, Starting on Sat04/04/16 at 1454, Until Sat04/04/16 at 1604, Anesthesia Intra-op, Routine New Bag 04/04/2016 2:54 PM EDT 200 mcg/kg/min 219.4 mL/hr documented in this encounter Care Teams Customer Experience Manager Relationship Specialty Start Date End Date Radhika Xiao, GERALD [address] [facility] [address] PCP - General Family Medicine 03/28/16 documented as of this encounter
--- OUTSIDE RECORDS SUMMARY | 2024-05-25 13:08 | XMS_ITS | Encounter Summary ---
[facility] [place] [address] Care Team Providers Care Meat Manager Name Role Phone Marti Watkins CDL B DRIVER Primary Care Provider [phone]- [phone] Encounter Details Date Type Department Care Team (Late st Contact Info) Description 10/25/2015 Telephone [place] [id number] Arabella Watts, RD [facility] [place] [address] Social History Tobacco Use Types Packs/Day Years Used Date Smoking Tobacco: Never Sex and Gender Information Value Date Recorded Sex Assigned at Not on file Gender Identity Male 07/07/2018 3:10 PM EDT Sexual Orientation Not on file documented as of this encounter Miscellaneous Notes * Telephone Encounter - Arabella Watts, RD - 10/25/2015 9:31 AM EST I called Konstantin to review his progess in the bariatric surgery program. He did not answer my call but emailed back stating email is the best way to reach him. I sent the following email to Konstantin via [employer]. Good morning Konstantin, I received your information packet. Following are the items we are missin. 3 months of dietary counseling 2. Complete History and Physical from your PCP 3. Labwork 4. 2 visits for psychological evaluation Are you being treated for sleep apnea? If not, I would recommend treatment. Weight loss can help resolve symptoms but you will need to be treated until you lose sufficient weight to be retested. Lastly, one of your office notes states you are currently using tobacco. As a reminder, you are required to be tobacco free prior to your first appointment. I provided my contact information for any questions. documented in this encounter Plan of Treatment Not on file documented as of this encounter Visit Diagnoses Not on filedocumented in this encounter Care Teams Meat Manager Relationship Specialty Start Date End Date Marti Watkins, GERALD [facility] [address] [place] [address] PCP - General 12/01/13 03/27/16 documented as of this encounter
--- OUTSIDE RECORDS SUMMARY | 2024-05-25 13:08 | XMS_ITS | Encounter Summary ---
Author Organization [facility] [place] [address] Care Team Providers Care Sludge Mill Operator Name Role Phone Radhika Xiao APRN [...] Expiration Date Visits Re quested Visits Authorized [id number] 1 1 Encounter Details Date Type Department Care Team (Latest Contact Info) Description 04/04/2016 12:10 PM EDT - 04/04/2016 5:35 PM EDT Hospital En[place] [address] Konstantin Mendez MD [facility] [place] [address] Discharge Disposition: Home Social History Tobacco Use [...] Sign Reading Time Taken Comments Blood Pressure 97/77 04/04/2016 4:17 PM EDT Pulse 63 04/04/2016 2:24 PM EDT Temperature - - Respiratory Rate 18 04/04/2016 4:17 PM EDT Oxygen Saturation 95% 04/04/2016 4:17 PM EDT Inhaled Oxygen Concentration - - Weight 182.8 kg (403 lb) 04/04/2016 2:24 PM EDT Height 177.8 cm (5' 10) 04/04/2016 2:24 PM EDT Body Mass Index 57.82 04/04/2016 2:24 PM EDT documented in this encounter Discharge Instructions * Discharge Instructions* Deisy Galvez RN - 04/04/2016 4:19 PM EDT Please call [phone] before 8pm with problems, questions or concerns, after 5pm call the Hospital at [phone] and ask to speak to the Equipment Oiler chuck boner and the hot metal mixer operator will contact that person for you. Discharge instructions reviewed with patient who expresses understanding. You may have received medications before and/or during your procedure which effects your judgement and reaction time. Do not drive, operate machinery, drink alcoholic beverages or make important decisions for 24 hours. Be careful on stairs as you may be unsteady on your feet. You may eat a regular diet as tolerated. Do not smoke if you are alone. IV site: Slight redness or tenderness is normal, you can use a warm compress if you would like. If tenderness and/or redness increase or if foul drainage occurs, please contact your Doctor. * Attachments The following attachments cannot be sent through Care Everywhere. * COLONOSCOPY : POST-OP ([place]) * EGD (UPPER ENDOSCOPY) : POST-OP ([place]) documented in this encounter Medications at Time [...] daily. omeprazole (PRILOSEC) 40 mg Capsule, Delayed Release(E.C.)Indicati ons:Reflux esophagitis Take 1 capsule by mouth daily. 30 capsule 6 04/04/2016 12/28/2016 buPROPion (WELLBUTRIN) 100 mg Tablet Take 100 mg by mouth daily. Reported on 12/28/2016 3 03/01/2016 12/28/2016 Glucosamine &Lunqlnbzw-KT-Tcl7 384-309-78-0.5 mg Tablet Take 1 tablet by mouth 2 times daily. 06/06/2016 fish oil-omega-3 fatty acids 1,000 mg Capsule Take 1 g by mouth nightly. 06/06/2016 naproxen (NAPROSYN) 500 mg Tablet Take 500 mg by mouth 2 times daily as needed. 05/17/2016 documented as of this encounter H&P Notes * Orlando Cantor - 04/04/2016 2:36 PM EDT Gastroenterology and Hepatology Pre-Procedure History and Physical Exam Procedure: EGD: /Colonography Indication: GAYLE evaluation, pre-op for Bariatric Surgery, plan EGD with duodenal and gastric biopsy (eval for H.pylori) with colonoscopy Patient Active Problem List Diagnosis Code ??? [...] R73.09 ??? GAYLE (iron deficiency anemia) D50.9 EXAM: HEENT: Airway examined, oropharynx clear Mallampati Score: II (soft palate, uvula, fauces visible) LUNGS: Clear to auscultation HEART: Regular rate and rhythm, normal S1, S2 ABDOMEN: Normal bowel sounds, soft, non tender, non distended, A/P Proceed with the planned endoscopic procedure. ASA 3 - Patient with moderate systemic disease with functional limitations Sedation Plan: anesthesia Risks and benefits of the procedure explained to the patient. Consent signed. Electronically signed by: Orlando Cantor Gastroenterology Fellow [facility] Pager [phone] 04/04/2016 documented in this encounter Plan of Treatment Not on file documented as of this encounter Procedures Procedure Name Priority Date/Time Associated Diagnosis Comments SURGICAL PATHOLOGY REPORT Routine 04/04/2016 3:56 PM EDT SPECIMEN TO PATHOLOGY Routine 04/04/2016 3:56 PM EDT SPECIMEN TO PATHOLOGY Routine 04/04/2016 3:56 PM EDT SPECIMEN TO PATHOLOGY Routine 04/04/2016 3:56 PM EDT UPPER GASTROINTESTINAL ENDOSCOPY,WITH BIOPSY SINGLE OR MULTIPLE (WRVU 2.39) 04/04/2016 2:56 PM EDT Preop examination Iron deficiency anemia, unspecified iron deficiency anemia type COLONOSCOPY, DIAGNOSTIC (WRVU 3.26) 04/04/2016 2:56 PM EDT Preop examination Iron deficiency anemia, unspecified iron deficiency anemia type EGD, UPPER GI ENDOSCOPY (WRVU 2.09) 04/04/2016 2:56 PM EDT Preop examination Iron deficiency anemia, unspecified iron deficiency anemia type COLONOSCOPY Routine 04/04/2016 2:45 PM EDT UPPER GI ENDOSCOPY Routine 04/04/2016 2: 44 PM EDT documented in this encounter Results * Surgical Pathology Report (04/04/2016 3:56 PM EDT) Final Diagnosis [id number] ? Location: 4T; 05; A The signing pathologist has (i) examined the relevant preparation(s) for the specimen(s) and (ii) rendered or confirmed the diagnosis(es). . ?Surgical Pathology DIAGNOSIS A - Duodenum, biopsy: - ??Duodenal mucosa, negative for diagnostic abnormality ??. B - Stomach, biopsy: - Gastric antrum-type and body/fundic-type mucosa, negative for diagnostic abnormality. C - Distal esophagus, biopsy: - Squamocolumnar junctional mucosa (cardia type) with mild chronic inflammation. There is no evidence of intestinal metaplasia. 04/05/16 AAY 04/09/16 Verified by: ? Radames Underwood MD ?Pathologist ?(Electronic Signature) The attending pathologist whose signature appears on this report has reviewed all diagnostic slides and has edited the gross and/or microscopic portion of the report in rendering the final pathologic diagnosis. CLINICAL INFORMATION Specimen Submitted: A - Duodenum bx B - Stomach bx C - Distal esophagus bx Clinical History: Iron deficiency anemia Clinical Diagnosis: Same SPECIMEN PROCESSING A - Labeled/Fixative: Duodenum, formalin. Quantity/Size: Four, averaging 0.4 cm. Tissue Description: Soft handley-red tissue. Sections/Processi ng: (T1) B - Labeled/Fixative: Stomach, formalin. Quantity/Size: Five, averaging 0.4 cm. Tissue Description: Soft handley tissue. Sections/Processi ng: (T2) C - Labeled/Fixative: Distal esophagus, formalin. Quantity/Size: Three, averaging 0.3 cm. Tissue Description: Soft handley tissue. Sections/Processi ng: (T1) ??ksb 04/09/2016 4:16 PM EDT [facility] GI Biopsy 04/04/2016 3:56 PM EDT 04/04/2016 3:56 PM EDT GI Biopsy 04/04/2016 3:56 PM EDT 04/04/2016 3:56 PM EDT GI Biopsy 04/04/2016 3:56 PM EDT 04/04/2016 3:56 PM EDT Julia Ashraf MD PATHOLOGY/[place] [address] * Specimen to Pathology (surgical or derm) (04/04/2016 3:56 PM EDT) AP Specimen 04/04/2016 3:56 PM EDT 04/04/2016 3:57 PM EDT Narrative [facility] - 04/04/2016 3:57 PM EDT Specimen requisition ordered. ??Separate Pathology report to follow Julia Ashraf MD PATHOLOGY/CYTOLOGY [place] Performing Organization Address City/[facility]/[place] [address] * Specimen to Pathology (surgical or derm) (04/04/2016 3:56 PM EDT) AP Specimen 04/04/2016 3:56 PM EDT 04/04/2016 3:57 PM EDT Narrative [facility] - 04/04/2016 3:56 PM EDT Specimen requisition ordered. ??Separate Pathology report to follow Julia Ashraf MD PATHOLOGY/CYTOLOGY [place] Performing Organization Address City/[facility]/[place] [address] * Specimen to Pathology (surgical or derm) (04/04/2016 3:56 PM EDT) AP Specimen 04/04/2016 3:56 PM EDT 04/04/2016 3:56 PM EDT Narrative [facility] - 04/04/2016 3:56 PM EDT Specimen requisition ordered. ??Separate Pathology report to follow Julia Ashraf MD PATHOLOGY/[place] [address] * COLONOSCOPY (04/04/2016 2:45 PM EDT) COLONOSCOPY [facility] Endoscopy Patient Name: Konstantin Hickey ? Procedure Date: 04/04/2016 2:45 PM ? Date of : 1980 ? Age: 35 ? Order #: [id number] ? Procedure: ? Colonoscopy Indications: ? Iron deficiency anemia Providers: ? Julia Ashraf, Francesca Lopez, BERRY, ? Shavon Disla, Staple Cutter, [place] ? MD Devaughn Referring MD: ?Radhika Xiao MD Requesting Provider: Rebeca Jiménez Medicines: ? Monitored Anesthesia Care Complications: ? No immediate complications. Procedure: ? Pre-Anesthesia Assessment: ? - Prior to the procedure, a History ? and Physical was performed, and ? patient medications, allergies and ? sensitivities were reviewed. The ? patient's tolerance of previous ? anesthesia was reviewed. ? - The risks and benefits of the ? procedure and the sedation options ? and risks were discussed with the ? patient. All questions were answered ? and informed consent was obtained. ? - Patient identification and proposed ? procedure were verified prior to the ? procedure by the physician and the ? nurse. The procedure was verified in ? the pre-procedure area in the ? procedure room. ? - Pre-procedure physical examination ? revealed no contraindications to ? sedation. ? - ASA Grade Assessment: III - A ? patient with severe systemic disease. ? - After reviewing the risks and ? benefits, the patient was deemed in ? satisfactory condition to undergo the ? procedure. ? - Monitored anesthesia care was ? determined to be medically necessary ? for this procedure based on review of ? the patient's medical history, ? medications, and prior anesthesia ? history. ? The procedure, indications, benefits, ? risks and alternatives were explained ? to the patient. Specifically ? discussed were potential ? complications including, but not ? limited to, bleeding, perforation, ? infection, missing a cancer, and ? adverse medication reactions. The ? patient was placed in the left ? lateral decubitus position, and a ? digital rectal exam was performed. ? The Colonoscope was inserted in the ? anus and under direct visualization, ? advanced to the cecum, identified by ? appendiceal orifice and ileocecal ? valve. Careful inspection was made as ? the colonoscope was withdrawn. The ? patient tolerated the procedure well. ? The quality of the bowel preparation ? was good. ? Findings: ? The perianal examination was normal. ? The rectum, sigmoid colon, descending colon, ? transverse colon, ascending colon, cecum, appendiceal ? orifice and ileocecal valve appeared normal. ? The terminal ileum appeared normal. ? No additional abnormalities were found on ? retroflexion. ? Impression: ?- The rectum, sigmoid colon, ? descending colon, transverse colon, ? ascending colon, cecum, appendiceal ? orifice and ileocecal valve are ? normal. ? - The examined portion of the ileum ? was normal. ? - No specimens collected. Recommendation: ?No obvious cause of iron deficiency ? anemia ? Follow up in Bariatric Clinic ? Attending Participation: ? I was present and participated during the entire ? procedure, including non-brown portions. ? Julia Ashraf Julia Ashraf, 04/04/2016 3:55:18 PM This report has been signed electronically. Number of Addenda: 0 Note Initiated On: 04/04/2016 2:45 PM [facility] 04/04/2016 2:45 PM EDT Radhika Xiao APRN GENERAL SURGICAL ORD ERABLES [facility] * UPPER GI ENDOSCOPY (04/04/2016 2:44 PM EDT) UPPER GI ENDOSCOPY [facility] Endoscopy Patient Name: Konstantin Hickey ? Procedure Date: 04/04/2016 2:44 PM ? Date of : 1980 ? Age: 35 ? Order #: [id number] ? Procedure: ? Upper GI endoscopy Indications: ? Iron deficiency anemia Providers: ? Julia Ashraf, Francesca Lopez, RN, ? Shavon Disla, Staple Cutter, [place] ? MD Devaughn, Maira Mendoza, ? Referring MD: ?Radhika Xiao MD Requesting Provider: Rebeca Jiménez Medicines: ? Monitored Anesthesia Care Complications: ? No immediate complications. Procedure: ? Pre-Anesthesia Assessment: ? - Prior to the procedure, a History ? and Physical was performed, and ? patient medications, allergies and ? sensitivities were reviewed. The ? patient's tolerance of previous ? anesthesia was reviewed. ? - The risks and benefits of the ? procedure and the sedation options ? and risks were discussed with the ? patient. All questions were answered ? and informed consent was obtained. ? - Patient identification and proposed ? procedure were verified prior to the ? procedure by the physician and the ? nurse. The procedure was verified in ? the pre-procedure area in the ? procedure room. ? - Pre-procedure physical examination ? revealed no contraindications to ? sedation. ? - ASA Grade Assessment: III - A ? patient with severe systemic disease. ? - After reviewing the risks and ? benefits, the patient was deemed in ? satisfactory condition to undergo the ? procedure. ? - Monitored anesthesia care was ? determined to be medically necessary ? for this procedure based on review of ? the patient's medical history, ? medications, and prior anesthesia ? history. ? The procedure, indications, benefits, ? risks and alternatives were explained ? to the patient. Specifically ? discussed were potential ? complications including, but not ? limited to, bleeding, perforation, ? infection, missing a cancer, and ? adverse medication reactions. The ? Endoscope was introduced through the ? mouth, and advanced to the third part ? of duodenum. The patient tolerated ? the procedure well. The patient ? tolerated the procedure well. ? Findings: ? LA Grade C (one or more mucosal breaks continuous ? between tops of 2 or more mucosal folds, less than ? 75% circumference) esophagitis was found. There was a ? nodular area in the distal esophagus. Biopsied. ? The exam of the esophagus was otherwise normal. ? The Z-line was regular and was found 40 cm from the ? incisors. ? The gastric body, gastric antrum, cardia (on ? retroflexion) and gastric fundus (on retroflexion) ? were normal. Biopsied. ? The duodenal bulb, first part of the duodenum, 2nd ? part of the duodenum and 3rd part of the duodenum ? were normal. Biopsied. ? Impression: ?- LA Grade C esophagitis. ? - Normal area in the distale ? esophagus. Biopsied. ? - Normal stomach. Biopsied. ? - Normal duodenum. Biopsied. Recommendation: ?Colonoscopy ? Attending Participation: ? I was present and participated during the entire ? procedure, including non-brown portions. ? Julia Ashraf Julia Ashraf, 04/04/2016 3:23:58 PM This report has been signed electronically. Number of Addenda: 0 Note Initiated On: 04/04/2016 2:44 PM [facility]ATION 04/04/2016 2:44 PM EDT Radhika Xiao APRN GENERAL SURGICAL ORD ERABLES [facility] documented in this encounter Visit Diagnoses Not on filedocumented in this encounter Administered Medications Inactive Administered Medications - up to 3 most recent administrations Medication Order MAR Action Action Date Dose Rate Site lactated ringers infusion 100 mL/hr, Intravenous, CONTINUOUS, Starting on Sat04/04/16 at 1500, Until Sat04/04/16 at 1720, Endoscopy (Day of Procedure) New Bag 04/04/2016 2:55 PM EDT New Bag 04/04/2016 2:37 PM EDT 100 mL/hr 100 mL/hr documented in this encounter Active and Recently Administered Medications Times are shown in EDT. Continuous Medication Order 04/02/2016 04/03/2016 04/04/2016 lactated ringers infusion (CANCELED) 100 mL/hr, Intravenous, CONTINUOUS, Starting on Sat04/04/16 at 1500, Until Sat04/04/16 at 1720, Endoscopy (Day of Procedure) 1437 (New Bag - Prov ider: Jj Hutchins, RN)1455 (New Bag - Provider: Margarita Schwartz CRNA)1545 (Stopped - Provider: Margarita Schwartz CRNA) documented in this encounter Care Teams Sludge Mill Operator Relationship Specialty Start Date End Date Radhika Xiao, ANESTHESIOLOGY TECH [address] [place] [address] PCP - General Family Medicine 03/28/16 documented as of this encounter
--- OUTSIDE RECORDS SUMMARY | 2024-05-25 13:08 | XMS_ITS | Encounter Summary ---
Author Organization 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 Name Role Phone Radhika Xiao APRN Primary Care Provider [phone] Reason for Visit * Consultation (Routine) - Specialty Diagnoses / Procedures Referred By Kitty carrion Referred To Contact General Surgery Diagnoses (EMP) Rich Surg Eval Procedures NEW PATIENT Radhika Xiao APRN [address] [place] [address] eRbeca Jiménez APRN [facility] [place] [id number] Referral ID Status Reason Start Date Expiration Date V isits Requested Visits Authorized [id number] Consult, Test & Treat 03/28/2016 03/28/2017 1 1 Encounter Details Date Type Department Care Team (Late st Contact Info) Description 03/28/2016 8:00 AM EDT Office Visit General Surgery at [facility] [place] [address] Rebeca Jiménez APRN [facility] [place] [phone] Arabella Watts, AMANDA [facility] [place] [address] [place] (obstructive sleep apnea); Prediabetes; Low hemoglobin and low hematocrit; Iron deficiency anemia, unspecified iron deficiency anemia [...] Sign Reading Time Taken Comments Blood Pressure 134/78 03/28/2016 7:52 AM EDT Pulse 65 03/28/2016 7:52 AM EDT Temperature - - Respiratory Rate 18 03/28/2016 7:52 AM EDT Oxygen Saturation 100% 03/28/2016 7:52 AM EDT Inhaled Oxygen Concentration - - Weight 185.1 kg (408 lb) 03/28/2016 7:52 AM EDT Height 179.7 cm (5' 10.75) 03/28/2016 7:52 AM E DT Body Mass Index 57.31 03/28/2016 7:52 AM EDT documented in this encounter Patient Instructions * Patient Instructions* Rebeca Jiménez, GERALD - 03/28/2016 8:00 AM EDT BARIATRIC SURGERY PROGRAM FIRST VISIT Contact information: [facility] Admin coordinator Jenny: [phone] Dietitian: [phone] Surgeons/ nurse practitioner: [phone] Nurse line: [phone] Recommendations to do list after today's visit: Medications: ?? Start the following medications: Multivitamins with minerals once a day Ferrous Fumarate 325 mg daily in conjunction with vitamin C 500 mg daily. A prescription for the iron supplement has been sent to your pharmacy. Vitamin D: recommendations pending lab results Evaluations/ testing: The following evaluations are needed: --Upper endoscopy and colonoscopy for work up of iron deficiency Pending information: --Evidence of ongoing counseling to be faxed to [facility] Bariatric surgery --Have most recent primary care office note with current weight faxed to [facility] Bariatric surgery program --Lab work and recommendations to follow pending lab work results Bariatric Surgery Program educational information: 1. Read the Bariatric Surgery Program Educational Handbook thoroughly, highlight important areas toremember. Write down any questions that you may have to discuss at next visit. 2. Bring the Handbook to ALL pre-operative visits, including the surgeon visit. Keep the handbook in a safe place for easy retrieval. Your next visits: All visits take place in the General Surgery Clinic, [facility] Area 4L 3. 2nd visits with dietitian and nurse practitioner ([facility]- Shared Medical Appointment) 4. Surgical consultation: Dr. Thomas 5. Pre-op class: April 06, 2016 with an arrival time of 12:30 6. Bring the questionnaire to your next visit. Complete within 1 day of the visit. Nutrition: 1) Maintain weight at 408 lbs or less. 2) Practice post-op GB diet recommendations prior to surgery to support post-op success and long-term weight loss: ??? Eat 3 meals daily, spaced about 4-6 hours apart. ??? Continue to take your time when eating meals, at least 20-30 minutes per meal. ??? Avoid soda and limit caffeine consumption. Stop caffeine 2 weeks prior to surgery. ??? Sip 48-64 oz hydrating fluid daily between meals and avoid drinking with meals. ??? Use smaller plates/bowls/utensils for meals and eat smaller portions. ??? Plan meals 1 wk in advance and shop with a list. 3) Continue taking a complete multivitamin daily. 4) Continue to be as active as possible. 5) Practice this Meal Format: Protein first at all meals! Only eat until full. Breakfast 1st Protein (15-20 grams) 2nd Fruit (1 piece or ?? cup) 3rd Starch (1 serving) Lunch and Dinner 1st Protein (20 grams) 2nd Non-Starchy Vegetables (no limit, no fat) 3rd Starch (1 serving) 4th Fruit (1 piece or ?? cup) 1 serving of starch = 1 slice toast, ?? Yemeni muffin, ?? cup cooked potato, rice, or pasta, 1 small marcellus or wrap Non starchy vegetables include all those except corn, peas, winter squash, beans, and potatoes Snacks: 1-2 per day if physically hungry - choose a protein or a fruit Surgery date: For patients who have insurers who have a long approval process, your surgery date and pre-operative class will be scheduled after you are approved by your insurer. We cannot predict your OR date in advance of approval. Only the OR analyst can provide you with a date. Questions for your doctor, specialist or pharmacist: 7. Ask your doctor about medication suggestions if you currently take medications that are largerthan the size of a tylenol. Large pills need to be crushed (if permitted by the drug cyber defense forensics analyst) or taken in liquid form for TWO WEEKS after surgery. Diabetic oral medication often does not need katarina taken after surgery) ?? If you take antinflammatory medications or steroid medications for arthritis or asthma, please check with your doctor. These medications will likely need to be held 1 week prior to and at least a few weeks after surgery. For women who take control or hormone medications: these medications must be stopped 1 month before and after surgery. Use alternative forms of control. Education: 1. Continue to read information about bariatric surgery- websites listed in your handbook Also check the ASMBS website: http://asmbs.org/patients 2. Bariatric surgery apps- [facility] Rich Apps- Pre-Rich, Post-rich 3.[facility] facebook page: [email or web address] documented in this encounter Progress Notes * Rebeca Jiménez APRN - 03/28/2016 8:00 AM EDT Reason for consultation: Konstantin is a 35 y.o. year-old male referred by Radhika Xiao APRN for consultation for consideration of surgical treatment of obesity. Prior bariatric surgery evaluations: he reports starting the process for bariatric surgery at [facility] in 2009 but had to hold off secondary to lack of insurance and work related issues then life go busyso he postponed but then restarted the program. His preferred procedure: RNY gastric bypass BARIATRIC SURGERY PROGRAM PATHWAY Review of progress with the requirements of the Bariatric Surgery Program: 1. Education: He has attended a Introduction to the [facility] Bariatric Surgery Program seminar, a comprehensive two hour meeting that provides a program overview, education on bariatric surgeries offered at [facility], risks and benefits, as well as patient expectations and follow up, in 06/17/2015. [facility] Bariatric Surgery Program Educational seminars viewed: 10/24/2015. 3. Grades on post- testin% and 100% x 2. The BSP Educational Handbook is provided at visit #1. 2. Pre-operative programmatic evaluations: PCP evaluation and letter of support to proceed with surgery, BSP lab work and psychological evaluation 3. Bariatric Surgery Program evaluations with RD and SOFTWARE INTERN: today. 4. Weight history: 390.9# on 11/09/09; [...] indication 8. Next steps in pathway: ?? Additional testing/ consultations as determined as needed to be determined at today's visit. ?? If all BSP requirements and testing have been completed: surgical consultation. ?? Following surgical consultation, if approved to proceed to surgery by the surgeon and insurer: an operating room date and pre-operative class will be scheduled. History of present illness: Konstantin reports a history of obesity since the age 22. Factors that he identifies as contributing to his obesity include: over consumption, boredom eating and physical hunger since he never feels full. He reports going to gym all the time until the past few months secondary to his ex- being a motorcycle accident and assuming time study analyst care of his son (4) and daughter (9). He lives with his girlfriend who has twin boys aged 3. He denies binge eating, night eating disorder, self-induced vomiting, laxative or diuretic use or excessive exercise to lose weight. He reports remaining engaged in counseling and goes once a month. He also follows up with his PCP once a month. 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 Refer to nutrition note by [facility] dietitian for weight and dieting history, 24 hour dietary intake and recent dietary changes. Motivating factors for seeking surgery for bariatric surgery: see RD note Patient research in addition to attendance at [facility] Bariatric Surgery Informational meeting and online Educational seminars: see RD note His goals of surgery: improvement of overall health and well being. Increase physical activity withgoal of participating in the [employer] or [employer] in one year. Be active with his children. His perceived readiness for surgery: he reports being ready to proceed with bariatric surgery. His goal weight:Konstantin is in agreement with predicted anticipated weight loss by 1 year post surgery Functional status: Exercise: As per RD note Is ambulation limited most or all of the time? no Tolerance: he can walk a mile and climb a flight of stairs without dyspnea or shortness of breath Karnofsky performance status scale: 90- able to carry on normal activity, minor signs or symptoms of disease ADLs: able to carry on without difficulty- independent Use of assistive devices: denies Dyspnea with routine activity: denies Patient Active Problem List Diagnosis Code ??? Acrochordon L91.8 ??? Morbid obesity with BMI of 50.0-59.9, adult Z68.43 ??? [place] (obstructive sleep apnea): A. PSG 03/29/15 at wt 386#, BMI: 53.86: AHI: 6.5/hr; RDI: 13.3/hr; REM related AHI: 9.3/hr; REM related RDI: 18.7/hr; Sa02 kesley: 85% on RA 919 consecutive minutes were [...] foot M25.511 ??? Prediabetes: --03/28/16: HbA1C 5.7 ??? Iron Deficiency Anemia PSHx: none Allergies: NKDA Medications: ??? buPROPion (WELLBUTRIN) 100 mg Tablet qd ? ? Glucosamine &[id number]-RO-Fbo4 764-646-56-0.5 mg Tablet BID ??? fish oil-omega-3 fatty acids 1,000 mg Capsule qd ??? naproxen (NAPROSYN) 500 mg Tablet BID prn; rare ??? albuterol (PROVENTIL HFA;VENTOLIN HFA) 90 mcg/actuation inhaler prn ? ? MULTIVIT &MINERALS/FERROUS FUM (MULTI VITAMIN ORAL) 1 tablet qd Anesthesia history (per patient): denies untoward events Lactose/ Food/ Wheat/ Latex allergy/sensitivity: denies Diagnostic screenin. Lab data: Recent Results (from the past 72 hour(s)) Comprehensive metabolic panel (non-fasting) Result Value Ref Range Glucose Lvl 86 65 - 199 mg/dL BUN 17 10 - 20 mg/dL Creatinine 1.00 0.80 - 1.50 mg/dL Sodium 140 135 - 145 mmol/L Potassium 3.9 3.5 - 5.0 mmol/L Chloride 101 98 - 107 mmol/L CO2 29 22 - 31 mmol/L Anion Gap 10 5 - 15 mmol/L Calcium 9.2 8.5 - 10.5 mg/dL Total Protein 7.3 6.1 - 8.0 gm/dL Albumin 3.9 3.2 - 5.2 gm/dL AST 27 0 - 39 unit/L ALT 35 0 - 55 unit/L Alk Phos 88 40 - 120 unit/L Total Bilirubin <0.2 (L) 0.2 - 1.3 mg/dL Bili, Direct <0.1 0.0 - 0.3 mg/dL Estimated GFR >60 >=60 Hemoglobin A1c Result Value Ref Range Hemoglobin A1C 5.7 (H) 4.3 - 5.6 % Est Avg Gluc 117 mg/dL Iron and TIBC Result Value Ref Range Iron 42 (L) 45 - 160 mcg/dL TIBC 344 250 - 450 mcg/dL Iron Saturation 12 (L) 20 - 50 % Ferritin Result Value Ref Range Ferritin 42 30 - 400 ng/mL Vitamin A Result Value Ref Range Vitamin A 40.5 32.5 - 78.0 mcg/dL PTH Result Value Ref Range PTH 32 15 - 65 pg/mL VIT D Total Evaluation Result Value Ref Range 25-OH Vit D Total 31 30 - 100 ng/mL Vitamin B1, whole blood Result Value Ref Range Vit B1 Lvl WB 127 70 - 180 nmol/L Vitamin B12 Result Value Ref Range Vitamin B-12 678 207 - 974 pg/mL Folate, serum Result Value Ref Range Folate Lvl 11.7 4.6 - 34.8 ng/mL Uric acid Result Value Ref Range Uric Acid 7.8 3.5 - 8.5 mg/dL TSH Result Value Ref Range TSH 3.15 0.27 - 4.20 mcIU/mL Hemogram Result Value Ref Range WBC 5.4 4.0 - 10.0 x10(3)/mcL RBC 4.36 (L) 4.63 - 6.08 x10(6)/mcL Hemoglobin 12.5 (L) 13.7 - 17.5 gm/dL Hematocrit 39.3 (L) 40.0 - 51.0 % MCV 90.1 79.0 - 92.0 fL MCH 28.7 25.6 - 32.2 pg MCHC 31.8 (L) 32.0 - 36.5 gm/dL Platelets 258 145 - 370 x10(3)/mcL RDWSD 42.2 35.0 - 46.0 fL RDWCV 12.9 10.9 - 14.4 % MPV 9.9 9.0 - 12.0 fL Differential, Automated Result Value Ref Range Neutrophils % 63.0 % Neutr Abs (ANC) 3.39 1.50 - 6.30 x10(3)/mcL Lymphocytes % 27.7 % Lymphocytes Abs 1.5 1.0 - 3.6 x10(3)/mcL Monocytes % 7.6 % Monocyte Abs 0.4 0.2 - 1.0 x10(3)/mcL Eosinophils % 1.3 % Eosinophils Abs 0.1 0.0 - 0.5 x10(3)/mcL Basophils % 0.2 % Basophils Abs 0.0 0.0 - 0.2 x10(3)/mcL Immature Gran % 0.20 % Laine Gran Abs 0.01 0.00 - 0.05 x10(3)/mcL IgA Result Value Ref Range IgA 142 70 - 400 mg/dL Date WBC Hg/ Hct Plt Iron screen Lytes/CO2 BUN/Cr/GFR Ca Fast glu Insulin HA1C TSH 12/02/15 139/4.2/103/28.7 16/1.02/>60 8.5 96 2.54 07/08/15 5.6 6//13 6.35 13.5/41.5 197 Date Vit A B12 25 D PTH folate T chol HDL LDL Trig Uric acid LFTs 12/02/15 189 40 136 89 ALP 91/AST 31/ ALT 64 2. Psychological evaluation done by Hanna Mclain, [facility] following sessions on 12/02/15 and 12/16/15; no contraindication to bariatric surgery from a psychological perspective. Screening/other: Date Evaluation Results 2015 Primary care Never Colonoscopy Never DEXA Family History: Father (55): alcoholic, overweight and unsure of health history Mother (55): obese, tobacco abuse, ?atrial fibrillation Brother(28): healthy Sister(37): healthy Familial diseases/disorders: Additional family history: [x] All others negative Obesity: PGF and MGF Diabetes: PGF, PGM Thyroid disease: Premature heart disease: PGF: [place] x 2 Osteoporosis: Breast or colon cancer: Bleeding/ clotting disorders: Anesthesia complications: Renal calculi: Social History/ Health-related habits : Residence/ marital status:Konstantin . 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 He reports a history of alcoholism in his family therefore tries to be careful with regards to alcohol use. He currently drinks socially up to once a month. May drink up to 6 beers. Tobacco: 0.25 ppd x 15 years. Quit on 08/2015 but relapsed a few times but currently cigarette and chewing tobacco free x 2-3 months. Recreational drugs/Injection/Inhalant: denies recent or current use Screening for IPV in the past year: negative Osteoporosis risk factors: negative if blank []Advancing age []Previous fracture []Glucocorticoid therapy []Parental history of hip fracture []Current cigarette smoking []Excessive alcohol consumption []Rheumatoid arthritis []Secondary osteoporosis (eg, hypogonadism or premature menopause, malabsorption, chronic liver disease, inflammatory bowel disease) control: N/A Dental visits: every 6 months Living will/DPOA: denies Review of Systems (negative if left blank): Constitutional: [X] fatigue EENT [X] wears corrective lens [ ] hearing problems Neurologic: [X] paresthesias: R arm secondary to shoulder injury. [ ] dizziness [ ] chronic headaches Cardiovascular: [ ] history of chest pain, squeezing, pressure [ ] history of [place] [ ] previous PCI/ PTCA, cardiac surgery [ ] VTE [ ] Syncope [ ] murmur [ ] palpitations Respiratory: [ ] shortness of breath [ ] wheezing [ ] COPD [X] mild [place] that is treated with CPAP GI: [X] h/o GERD in the distant past but no longer symptomatic. 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 Bilateral knee pain. He reports rare use of Naproxen. Extremities: [ ] Varicose veins, telangiectasias [X] edema in lower extremities over the past 2 months Skin: [ ] skinfold rashes [X] tattoos: L arm, R upper arm and R lower leg Endocrine: [X] Prediabetes: see problem list. [ ] PCOS [ ] thyroid disease Heme/Lymph: [ ] excessive bruising [ ] lymphadenopathy [ ] transfusion [X] blood donor in past year: he reports donating blood every four months. [ ] iron deficiency history Allergic/ Immun: [ ] use of steroid/ immunosuppressant for chronic condition [ ] Latex, food or medication allergies: as per allergy list Psychiatric [X] h/o depression [X] anxiety: intermittent episodes of anxiety related to work and being in large crowds. [] panic attacks [ ] history of suicide attempt [ ] symptoms of bipolar disorder [] addictions- gambling, excessive shopping, prolonged internet use [ ] History of abuse [ ] psychiatric hospitalization [ ] rehab admission Other: [X] smoker within 1 year of surgery: he reports quitting 2-3 months ago and has found Wellbutrin helpful. [ ] current smoker [ ] anticoagulation Bariatric Surgery VTE Risk Assessment Score Patients will be considered to be at high risk if they have one or more of the following: Previous VTE or BMI >/= 60 kg/m2 Or two or more of the followin 1 1 Age > 50 BMI >/= 50 kg/m2 Male sex Recent tobacco use Obstructive sleep apnea Venous insufficiency/ varicose veins OCP or HRT within 30 days of surgery Total: 3 extended VTE prophylaxis is indicated post bariatric surgery discharge Patients are advised to stop HRT and OCP/ DMPA 1 month prior to surgery and hold for 1 month postop, and use control during this time if appropriate. All patients who take coumadin/ anti-10Ainhibitors preoperatively are referred to the Thrombosis Clinic for recommendations. Physical exam: Vital Signs: BP 134/78;P 65;Ht 5'10.75 ;Wt 408#;BMI 57.3 Neuro: Non-focal, gait normal. Psych: Pleasant, conversant, normal affect, cognition and mood. Behavior: expressive, motivated and attentive. Mood: stable and happy ENT: neck thick, supple with normal ROM, no adenopathy or thyromegaly. Neck circumference is 19.5 inches. MP 4. Lungs: CTA without wheezing. Heart: RRR, S1 S2. No murmur, rub or gallop appreciated. Abdomen: Abdominal exam limited secondary to body habitus. Obese, soft, non- tender, non-distended and no hepatosplenomegaly. BS+. Waist circumference is 56 inches. Extremities: no lower extremity edema Skin: No areas of skin breakdown. Tattoos noted on left arm, R upper arm and R lower leg. Obesity distribution: central. Discussion of treatment of obesity and of the [facility] Bariatric Surgery Program: Mr.. Hickey is aware that other treatments for obesity are available, ie, dietary, behavior modification, weight loss medications, exercise as well as surgical weight loss methods. The risks and benefits of bariatric surgery, including gastric bypass, adjustable gastric banding and sleeve gastrectomy are discussed at every Introduction to the [facility] Bariatric Surgery Program meeting and all Educational Seminars, and will be reviewed in detail at the second pre- operative visit. The importance of incorporating lifestyle activity and regular exercise, such as walking, or swimming, after discussion and approval by his primary animal caregiver, prior to surgery, as well as post-operatively, was stressed. He is aware of our programmatic approach which includes three bariatric surgeons, as well as two dietitians and two nurse practitioners. Mandatory requirements include: 1. attendance at a two hour Introduction to the [facility] Bariatric Surgery Program seminar 2. view 3 Bariatric Surgery Educational seminars and complete post testing 3. a no weight gain policy. Ongoing weight loss is encouraged. Insurers may have additional weight loss requirements. 4. a minimum of two pre-operative visits with the dietitian and nurse practitioner 5. surgical consultation 6. Two hour pre-operative class and completion of post-testing 7. any additional requirements mandated by the patient's insurance carrier. Prospective patients are encouraged to thoroughly research bariatric surgery, via the internet, [facility] website at [email or web address], books, and journals. In addition, information on bariatric surgery is available at the [place] [facility] at [facility]. Assessment/ Plan: 35 y.o. year old male with Class III obesity with obesity-related subclinical risk factors including prediabetes, hyperlipidemia, obstructive sleep apnea, occasional aches and pains, fatigue, mild psychopathology and mild impairment of well being. He has had failure to sustain weight loss by medical management and meets the criteria proposed by the NIH Consensus Guidelines for surgical treatment of severe obesity, the AGUEDA, TOS, ASMBS Guidelines,. He is aware that there are non- surgical methods to achieve weight loss. ?? Iron deficiency anemia: the etiology is unclear and further work up warranted. The following tests have been ordered: celiac serology, upper endoscopy and colonoscopy. If EGD/colonoscopy unrevealing then consider video capsule. Consider referral to hematology if GI work up unremarkable. Instructed patient to hold blood donation effective now and recommend blood donation for one year after surgery. Recommend taking ferrous fumarate 325 mg with vitamin C 500 mg daily. Prescription sent to his pharmacy. He is amenable to the recommendations. Await tests results for further management. ?? Weight gain, discussed our no weight gain policy since his weight has increased from his starting weight of 392# and current weight 408# but did also quit tobacco 08/2015 therefore willing to allow some leeway. However, he was advised to maintain his current weight and encouraged to lose weight.If he continues to gain weight then he would be required to lose the weight before moving forward. ?? Given history of alcohol use in the past, discussed the potential for transfer of addiction after bariatric surgery, which is well documented in literature. Recommend that he continue with ongoingcounseling and will request most recent office note for review. Advised Konstantin to work on avoiding or minimizing alcohol use to special occasions. He is amenable to the recommendations. He has been given a follow up appointment to discuss the risks and benefits of bariatric surgery. He has had an opportunity to have all his questions answered and is in agreement with the plan of care. He was encouraged to call with any questions or concerns. Data reviewed: PCP notes, lab data, radiology/cardiology reports, psychological evaluation. Information given to patient: 1. [facility] Bariatric Surgery Education Handbook, a 102 page document (revision June 2013) which contains extensive information regarding pre and post- operative care including: a copy of the Patient Agreement, illustrations of GI anatomy and gastric bypass, gastric banding and sleeve gastrectomy surgeries, [facility] Rehab Medicine recommendations and exercises prior to surgery, gastric bypass, gastric banding and sleeve gastrectomy risks and benefits, dietary information including the pre-operative and post-operative diets, DVT prevention guidelines,information on medications that can increase the risk of bleeding, pre-op preparation information, post-operative instructions and contact numbers. 2. Advised to take the following medications: MVI 1 tablet qd; vitamin D: recommendations pending lab results. Studies and consults suggested to primary animal caregiver: Radhika Xiao APRN 1. Most recent office note with weight Pending: - Celiac serologies today - Lab work pending and recommendations to follow per lab results - Upper endoscopy and colonoscopy - Obtain office note of ongoing counseling and most recent PCP's note with weight. Received note ofongoing counseling from CARLOS A Mathews on 04/16/2016 and patient scheduled for appt on 04/20/2016. - CBC and CMP within 3 months of surgery, per [facility] accredited bariatric center guidelines (if surgery done after 06/28/2016) - Ongoing weight loss encouraged - 2nd visits with RD and SOFTWARE INTERN, surgical consultation: 04/06/2016 - Surgeon: Dr. Thomas SMA: VTE ; PPI; Ursodiol; ongoing counseling note; PCP's office note w/weight Questions regarding [facility] Bariatric Surgery Program patients: please call Madhavi Jiménez APRN or Abiodun Rivers APRN at [phone] * Arabella Watts, RD - 03/28/2016 8:00 AM EDT Bariatric Surgery Program Initial Nutrition Assessment Konstantin Hickey is being seen today for a preoperative evaluation in anticipation of weight loss surgery. SUBJECTIVE Preferred procedure: gastric bypass Interest in bariatric surgery: Started program in 2009 with his but couldn't go forward r/t lack of insurance/time off. Life got busy so he postponed restarting the program. PCP is supportive ofhis interest in surgery. Motivating Factors for Seeking Weight Loss Surgery: ?? [ ] Improved Health ?? [x] halfway weight loss ?? [x] Improved quality of life ?? [x] Increased activity - to do a tough mudder and be able to bike with his kids Research: ?? [x] Reading (Internet, books, etc.) - blogs and looking at information online ?? [x] Talking to people who have had weight loss surgery - ex- and a few friends have had surgery ?? [x] Attending introductory seminar - 06/17/15 ?? 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 Lives with girlfriend who is supportive of his interest in surgery. Currently his 2 children and her 2 children are living with them fulltime. Twins age 3, son age 4, daughter age 9. Related medical history: Class III obesity, [place] Overweight/obese since age: 22. Steady gain over his adult life. 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 Also notes he gained weight after his divorce. Highest weight: 420# in 32 Lowest weight: 330# at age 33 - lost ~90# with exercise and diet. Dieting History: Milagros Dwoney was was easiest to follow b/c he prepped everything ahead of time. Type of Diet Wt Lost (lbs.) Wt. Regain (lbs.) Dates Duration Comments [employer] diet and [employer] 90 all 2012 8 months High Protein (modified Warp Speed Diet) 40 38 2014 2 months Tried 4 times RDN/PCP [phone] 4 months - continues to see PCP monthly Quit tobacco during this time. 08/12/15, 08/19/15, 09/15/15, 10/05/15, 10/13/15, 11/14/15, 12/12/15 WW 30 all 2010 6 months Friend gave him the plan Smoothie diet Unknown maybe 20# 2014 1 month Breakfast and lunch; stopped r/t it making him sick Portion control ongoing History of diet pills to lose weight: stackers (more for energy) didn't notice any weight loss. History of bingeing/purging/laxatives to lose weight: no laxative abuse, no purging, Pt states he does not feel full so can eat a large quantity of food at one time if he is not careful. History of excessive exercise to lose weight: for a bit after his divorce. A few weeks only. Contributing Factors to Obesity: ?? [ ] Hx Binge Eating / Eating disorder ?? [x] Large portion sizes ?? [x] Fast eater ?? [x] Nighttime eating ?? [ ] Emotional eating ?? [x] Mindless eating - eating while watching TV ?? [ ] Choosing high calorie foods ?? [ ] Preference for concentrated sweets ?? [x] Snacking ?? [x] Shift work ?? [x] Eating out ?? [ ] Physical Inactivity ?? [ ] Genes Eating Triggers: ?? [ ] Emotions: ?? [x] Boredom ?? [ ] Stress ?? [ ] Fatigue ?? [x] Physical Hunger - never feeling full ?? [ ] Eating on a Schedule ?? [ ] Other: Food Allergies/Intolerances/Preference: ?? [ ] Gluten ?? [ ] Lactose ?? [x] None Recent Changes in Dietary/Lifestyle Habits: ?? [x] Smaller portions - got 21 day fix containers to aid in portion control ?? [x] Eating slower ?? [x] No longer getting seconds ?? [x] More fruits, vegetables ?? [ ] Leaner proteins ?? [ ] Decreasing carbohydrates ?? [ ] Lower calorie cooking methods (baking, broiling, grilling, etc.) ?? [x] Nutrition Counseling with PCP and RD ?? [x] No longer buying tempting foods from grocery store ?? [x] Healthier snack choices ?? [ ] Cutting out concentrated sweets/ decreasing added sugar ?? [x] Increased physical activity - last 2 months has not been able to go to gym r/t family commitments ?? Date changes implemented: ongoing since June 2015 Tracking Intake: None for nutrition tracking. Did use couch to 5K for activity. Typical Daily Intake: only allowed 32 oz. Bottle water and 1 snack in the unit at work (no containers). Can keep more food in a locker; Breaks 1-2 times per day but sometimes none. Pt does most of the meal planning, shopping, and cooking. Breakfast 1-[address] work (4:45A); breakfast at the snf - eggs or waffles and fruit Snack banana Lunch Beans and hamburger in [facility]; burgers; hot dogs (whatever is served at snf) Snack Occ. banana Supper 5-6P: chicken, pork or steak with vegetable and sm. Amt of starch. Occ. Homemade pizza. Snacks Beverages: 1 gallon water daily; SF rockstar energy drinks 2-3/week. 1 cup coffee daily ETOH: maybe 1 x month will have up to 6 beers (social occasions only). After divorce, in 2013, about 1/5 of vodka or rum every other day. States alcoholism is in his family so he pays attention to intake. Tobacco: quit tobacco 08/2015. States he had a few relapses but has been completely tobacco free for 2-3 months now. How Often Meals Eaten Away From Home: every couple of weeks goes out for family dinner - usually [employer]. Supplements/Vitamins: fish oil, glucosamine chondroitin and Centrum men's chewable daily. Physical Activity: walks about 7 miles per day at work. Hoping to get back to the gym in May. ~3 xweek. Psychological Indications: No contraindications to surgery. In going counseling- monthly visits. Vision at 2 years post-op: more energy - run a 5k with his kids, tough mudder or spartan race 1 year post-op. Being involved with kids activities. Goal weight: 220-250# Most proud of in terms of health and well-being: making weight lifting goals - 500 club; his kids, spending time with kids; motorcycling with his daughter. Character Strengths: family support, family in [place] and [place]. OBJECTIVE: Weight History: Date Weight (lbs) HT BMI Comments 405# Highest Weight 07/08/15 392.8# Initial program weight 03/28/16 408# 70.75 57.3 1st pre-op visit EWL % Surgery 1 month post-op 4 months post-op [place]man Body Weight (based on BMI of 25): 174# Excess Weight: 218# SUMMARY: Konstantin Hickey has been referred for nutrition evaluation and diet instruction in anticipation of bariatric surgery. 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 We reviewed the No Weight Gain Policy. Pt's wt is above starting weight however he quit tobacco since starting the program. Advised pt he needs to maintain his current weight. Any weight gain from this point forward would need to be lost prior to moving forward. Predicted weight loss with surgery is an estimated 50-70% of excess body weight (est. Wt 230-285#).Advised pt that bariatric surgery is a tool, not a solution; and ultimately, weight loss will be achieved through proper eating and exercise habits. He showed good understanding of the concepts discussed. NUTRITION DIAGNOSIS: - Obesity related to hx of over consumption as evidenced by BMI of 57.3. PLAN: 1) Patient to practice post-op GB diet recommendations prior to surgery to support post-op success and long-term weight loss: ??? Eat 3 meals daily, spaced about 4-6 hours apart. ??? Take your time when eating meals, at least 20-30 minutes per meal. ??? Avoid soda and limit caffeine consumption. Stop caffeine 2 weeks prior to surgery. ??? Sip 48-64 oz hydrating fluid daily between meals and avoid drinking with meals. ??? Use smaller plates/bowls/utensils for meals and eat smaller portions. ??? Plan meals 1 wk in advance and shop with a list. 2) Continue taking a complete multivitamin daily. 3) Continue to exercise as tolerated. 4) We reviewed the No Weight Gain Policy. Maintain wt at or below 408#. 5) Patient to attend two pre-op educational classes prior to surgery. Information given to patient: 1. [facility] Bariatric Surgery Education Handbook, a 102 page document (revision December 2011) which contains extensive information regarding pre and post- operative nutrition guidelines including: preop diet, Diet stages I-IV, hydration recommendations, protein guidelines, dumping syndrome, food intoleranc es, vitamin and mineral supplementation as well as a list of books and online bariatric resources. documented in this encounter Plan of Treatment Not on file documented as of this encounter Procedures Procedure Name Priority Date/Time Associated Diagnosis Comments TISSUE TRANSGLUTAMINASE AB IGA Routine 03/28/2016 7:16 AM EDT CELIAC SEROLOGY CASCADE Routine 03/28/20 7:16 AM EDT IGA Routine 03/28/2016 7:16 AM EDT documented in this encounter Results * Tissue Transglutaminase Ab IgA (03/28/2016 7:16 AM EDT) TTG IgA Ab <1.2 <4.0 (Negative) unit/mL [facility] Comment: Test Performed by: [place] [address] Station Inspector: Ramón Mahan II, M.D., Ph.D. Blood specimen (specimen) 03/28/2016 7:16 AM EDT 03/28/2016 11:58 AM EDT Narrative Resulting Agency Comment Spec In Lab Rebeca Jiménez APRN CHEMISTRY ORDERABLES [facility] [place] [place] [address] * Celiac Sero [place] (03/28/2016 7:16 AM EDT) Celiac Sero [place] Test ? Result ??Flag ??Unit ?? RefValue Celiac Disease Serology [place] ??Immunoglobulin A (IgA), S ?140 ? mg/dL ??61 - 356 ??Celiac Disease ? SEE COMMENTS ?Interpretation Negative serology. Celiac disease unlikely. However, approximately 10% of patients with celiac disease are seronegative. Also, patients who are already adhering to a gluten-free diet may be seronegative. If celiac disease is highly clinically suspected, consider HLA-DQ typing. Test Performed by: [address] [address] Station Inspector: Ramón Mahan II, M.D., Ph.D. [facility] Blood specimen (specimen) Venous Draw / Unknown 03/28/2016 7:16 AM EDT 03/28/2016 11:58 AM EDT Narrative Resulting Agency Comment Spec In Lab Rebeca Jiménez APRN LAB SEND OUT ORDERAB LES Performing Organization Address [facility] de Phone Number [facility] [place] [address] * IgA (03/28/2016 7:16 AM EDT) IgA 142 70 - 400 mg/dL [facility] Blood specimen (specimen) Venous Draw / Unknown 03/28/2016 7:16 AM EDT 03/28/2016 11:24 AM EDT Narrative Resulting Agency Comment Spec In Lab Rebeca Jiménez APRN CHEMISTRY ORDERABLES Performing Organization Address [facility] de Phone Number [facility] [place] [place] [address] documented in this encounter Visit Diagnoses Diagnosis [place] (obstructive sleep apnea) Obstructive sleep apnea (adult) (pediatric) Prediabetes Other abnormal glucose Low hemoglobin and low hematocrit Iron deficiency anemia, unspecified iron deficiency anemia type documented in this encounter Care Teams Oyster Farmer Relationship Specialty Start Date End Date Radhika Xiao, ROUTE VENDING MACHINE SERVICER [address] [place] [address] PCP - General Family Medicine 03/28/16 documented as of this encounter
--- OUTSIDE RECORDS SUMMARY | 2024-05-25 13:08 | XMS_ITS | Encounter Summary ---
Author Organization [facility] [place] [address] [place] [address] Care Team Providers Care Cold Type Composing Machine Operator Name Role Phone Radhika Xiao APRN Primary Care Provider Encounter Details Date Type Department Care Team (Late st Contact Info) Description 04/02/2016 Telephone General Surgery at [facility] [place] [phone] Rebeca Jiménez APRN [facility] [place] [address] Social History Tobacco Use Types Packs/Day Years Used Date Smoking Tobacco: Former Cigarettes 0.5 2 0 12/27/2013 - 12/28/2015 Smokeless Tobacco: Never Sex and Gender Information Value Date Recorded Sex Assigned at Not on file Gender Identity Male 07/07/2018 3:10 PM EDT Sexual Orientation Not on file documented as of this encounter Miscellaneous Notes * Telephone Encounter - Rebeca Jiménez APRN - 04/02/2016 4:10 PM EDT Contacted Konstantin regarding coming for SMA on 04/04/2016 at 0930 rather than 1230 and he is amenable since he coming on 04/04/2016 for EGD/colonoscopy. documented in this encounter Plan of Treatment Not on file documented as of this encounter Visit Diagnoses Not on filedocumented in this encounter Care Teams Cold Type Composing Machine Operator Relationship Specialty Start Date End Date Radhika Xiao, COUTURIERE [address] [place] [address] PCP - General Family Medicine 03/28/16 documented as of this encounter
--- OUTSIDE RECORDS SUMMARY | 2024-05-25 13:08 | XMS_ITS | Encounter Summary ---
Author Organization [facility] [address] Care Team Providers Care Concrete Bucket Unloader Name Role Phone Radhika Xiao GERALD Primary Care Provider Reason for Visit * Reason Onset Date Comments Abnormal Labs 03/28/2016 Encounter Details Date Type Department Care Team (Late st Contact Info) Description 03/28/2016 Telephone General Surgery at [facility] [place] [address] Hillary Bennett APRN [facility] [place] [address] Abnormal Labs Social History Tobacco Use Types Packs/Day Years Used Date Smoking Tobacco: Former Cigarettes 0.5 2 0 12/27/2013 - 12/28/2015 Smokeless Tobacco: Never Sex and Gender Information Value Date Recorded Sex Assigned at Not on file Gender Identity Male 07/07/2018 3:10 PM EDT Sexual Orientation Not on file documented as of this encounter Miscellaneous Notes * Addendum Note - Hillary Bennett APRN - 03/28/2016 11:41 AM EDTAddended by: HILLARY BENNETT on: 03/28/2016 11:41 AM Modules accepted: Orders * Telephone Encounter - Hillary Bennett APRN - 03/28/2016 11:29 AM EDT Contacted Konstantin regarding his abnormal lab results that revealed an iron deficiency. Recent Results (from the past 24 hour(s)) [...] Saturation 12 (L) 20 - 50 % PTH Result Value Ref Range PTH 32 15 - 65 pg/mL Uric acid Result Value Ref Range Uric [...] Gran Abs 0.01 0.00 - 0.05 x10(3)/mcL Discussed the etiology, pathophysiology and treatment of iron deficiency. Recommend EGD, colonoscopy and celiac serologies, which he is amenable to and orders placed for tests to be performed at [facility]. Await results for further management. Consider video capsule pending results. Recommendations: 1. No further blood donation. 2. Start iron supplement and this will be provided in lab letter to patient. 3. Hold repeat lab draw on 04/06/16 4. Proceed with shared medical appointment on 04/06/2016. Phone note forwarded to PCP. documented in this encounter Plan of Treatment Scheduled Orders Name Type Priority Associated Diagnoses Orde r Schedule UPPER GI ENDOSCOPY Procedures Routine Iron deficiency anemia, unspecified iron deficiency anemia type Preop examination Ordered: 03/28/2016 COLONOSCOPY Procedures Routine Iron deficiency anemia, unspecified iron deficiency anemia type Preop examination Ordered: 03/28/2016 documented as of this encounter Visit Diagnoses Diagnosis Iron deficiency anemia, unspecified iron deficiency anemia type Preop examination Preoperative examination, unspecified documented in this encounter Care Teams Concrete Bucket Unloader Relationship Specialty Start Date End Date Radhika Xiao APRN [address] [facility] [place] [address] PCP - General Family Medicine 03/28/16 documented as of this encounter
--- OUTSIDE RECORDS SUMMARY | 2024-05-25 13:08 | XMS_ITS | Encounter Summary ---
Author Organization [facility] [place] [address] Care Team Providers Care Ferryboat Helper Name Role Phone RolandMarti Rafia DUARTE Primary Care Provider [phone] Encounter Details Date Type Department Care Team (Late st Contact Info) Description 03/20/2016 Orders Only General Surgery at [facility] [place] [address] Rebeca Jiménez [facility] [place] [address] Morbid obesity with BMI of 50.0-59.9, adult; [place]IN (obstructive sleep apnea); Diabetes mellitus type II, controlled; Preop examination Social History Tobacco Use Types Packs/Day Years Used Date Smoking Tobacco: Never Sex and Gender Information Value Date Recorded Sex Assigned at Not on file Gender Identity Male 07/07/2018 3:10 PM EDT Sexual Orientation Not on file documented as of this encounter Plan of Treatment Not on file documented as of this encounter Results * TSH (03/28/2016 7:16 AM EDT) Thyroid Stimulating Hormone 3.15 0.27 - 4.20 mcIU/mL [facility] Blood specimen (specimen) 03/28/2016 7:16 AM EDT 03/28/2016 7:31 AM EDT Narrative Resulting Agency Comment Spec In Lab Juan Thomas MD CHEMISTRY ORDERABLES [facility] [place] [place] [address] * Uric acid (03/28/2016 7:16 AM EDT) Uric Acid 7.8 3.5 - 8.5 mg/dL [facility] Blood specimen (specimen) 03/28/2016 7:16 AM EDT 03/28/2016 7:31 AM EDT Narrative Resulting Agency Comment Spec In Lab Juan Thomas MD CHEMISTRY ORDERABLES Performing Organization Address City/[facility] Co de Phone Number [facility] [place] [address] * Folate, serum (03/28/2016 7:16 AM EDT) Folate 11.7 4.6 - 34.8 ng/mL [facility] Blood specimen (specimen) 03/28/2016 7:16 AM EDT 03/28/2016 7:31 AM EDT Narrative Resulting Agency Comment Spec In Lab Juan Thomas MD CHEMISTRY ORDERABLES Performing Organization Address [facility]/ZIP Co de Phone Number [facility] [place] [address] * Vitamin B12 (03/28/2016 7:16 AM EDT) Vitamin B12 678 207 - 974 pg/mL [facility] Blood specimen (specimen) 03/28/2016 7:16 AM EDT 03/28/2016 7:31 AM EDT Narrative Resulting Agency Comment Spec In Lab Juan Thomas MD CHEMISTRY ORDERABLES Performing Organization Address City/[facility]/ZIP Co de Phone Number [facility] [place] [address] * Vitamin B1, whole blood (03/28/2016 7:16 AM EDT) Vit B1 Lvl Wb (JANUARY) 127 70 - 180 nmol/L [facility] Comment: Test Performed by: [facility] [employer] [address], [place] [address] Clinical Quality Rn: Rachel Pena, Ph.D. Blood specimen (specimen) 03/28/2016 7:16 AM EDT 03/28/2016 9:20 AM EDT Narrative Resulting Agency Comment Spec In Lab Juan Thomas MD LAB SEND OUT ORDERAB LES Performing Organization Address City/[facility]/ZIP Co de Phone Number [facility] [place] [address] * VIT D Total Evaluation (03/28/2016 7:16 AM EDT) Vitamin D Total 25 OH 31 30 - 100 ng/mL [facility] Comment: Deficient <10 ng/mL Insufficient 10 to 29 ng/mL Sufficient 30 to 100 ng/mL Potential Intoxication >100 ng/mL According to the [place] National Osteoporosis Foundation, Vitamin D concentrations >30 ng/mL are sufficient to protect bone health. ??The National Kidney Foundation has similarly stated that patients with Vitamin D concentrations <30ng/mL should be considered to be insufficient or deficient. http://Group 47/[facility] CORDELLnatlkidneyfoundation http://Group 47/DHVitD The [employer] Vitamin D Immunoassay detects both 25-OH Vitamin D2 and 25-OH Vitamin D3, but only a total Vitamin D concentration is reported. Blood specimen (specimen) 03/28/2016 7:16 AM EDT 03/28/2016 7:31 AM EDT Narrative Resulting Agency Comment Spec In Lab Juan Thomas MD CHEMISTRY ORDERABLES Performing Organization Address [facility] Co de Phone Number [facility] [place] [address] * PTH (03/28/2016 7:16 AM EDT) Parathyroid Hormone 32 15 - 65 pg/mL [facility] Blood specimen (specimen) 03/28/2016 7:16 AM EDT 03/28/2016 7:31 AM EDT Narrative Resulting Agency Comment Spec In Lab Juan Thomas MD CHEMISTRY ORDERABLES Performing Organization Address [facility] Co de Phone Number [facility] [place] [address] * Vitamin A (03/28/2016 7:16 AM EDT) [facility] Vitamin A (JANUARY) 40.5 32.5 - 78.0 mcg/dL [facility] Comment: Test Performed by: [facility] [employer] [address], [place] [address] Clinical Quality Rn: Rachel Pena, Ph.D. Blood specimen (specimen) 03/28/2016 7:16 AM EDT 03/28/2016 9:18 AM EDT Narrative Resulting Agency Comment Spec In Lab Juan Thomas MD LAB SEND OUT ORDERAB LES Performing Organization Address [facility] Co de Phone Number [facility] [place] [address] * Ferritin (03/28/2016 7:16 AM EDT) [facility] Ferritin 42 30 - 400 ng/mL [facility] Comment: Pediatric reference ranges not verified at [facility], interpret with caution. Reference ranges for females greater than 50 years of age approach values for men, i.e., 30-400 ng/mL. Blood specimen (specimen) 03/28/2016 7:16 AM EDT 03/28/2016 7:31 AM EDT Narrative Resulting Agency Comment Spec In Lab Juan Thomas MD CHEMISTRY ORDERABLES Performing Organization Address [facility] Co de Phone Number [facility] [place] [address] * (ABNORMAL) Iron and TIBC (03/28/2016 7:16 AM EDT) [facility] Iron 42(L) 45 - 160 mcg/dL [facility] TIBC 344 250 - 450 mcg/dL [facility] Iron Saturation 12(L) 20 - 50 % [facility] Blood specimen (specimen) 03/28/2016 7:16 AM EDT 03/28/2016 7:31 AM EDT Narrative Resulting Agency Comment Spec In Lab Juan Thomas MD CHEMISTRY ORDERABLES [facility] [place] [address] * (ABNORMAL) Hemoglobin A1c (03/28/2016 7:16 AM EDT) Hemoglobin A1c 5.7(H) 4.3 - 5.6 % [facility] Mellitus, Diabetes Care 2013; 36: Suppl. 1, S67-34 Estimated Average Glucose 117 mg/dL [facility] Comment: [...] resources are available on the ADA website: [email or web address].com/[facility] CORDELLadacalc Jonn PONCE, Yessica J, Sara R, et al. ??Translating the A1C assay into estimated average glucose values. ??Diabetes Care 2008:31(8):1118-7080. Blood specimen (specimen) 03/28/2016 7:16 AM EDT 03/28/2016 7:31 AM EDT Narrative Resulting Agency Comment Spec In Lab Juan Thomas MD CHEMISTRY ORDERABLES [facility] [place] [address] * (ABNORMAL) Comprehensive metabolic panel (non-fasting) (03/28/2016 7:16 AM EDT) Glucose 86 65 - 199 mg/dL [facility] Comment:Diabetes: >=200 mg/d L plus symptoms Blood Urea Nitrogen 17 10 - 20 mg/dL [facility] Creatinine 1.00 0.80 - 1.50 mg/dL [facility] Comment: Please note that the pediatric reference intervals supplied above were not validated at [facility]. Results from pediatric patients should be interpreted in conjunction to the patient's age, height and muscle mass. Sodium 140 135 - 145 mmol/L [facility] Potassium 3.9 3.5 - 5.0 mmol/L [facility] Comment: Please note: ??Patients with WBC >100,000 may have falsely elevated Potassium levels. ??For accurate Potassium quantification in these patients send serum separator tube (gold top) for subsequent determinations. ??Contact the Clinical Chemistry Laboratory if there are any questions. Chloride 101 98 - 107 mmol/L [facility] Carbon Dioxide 29 22 - 31 mmol/L [facility] Anion Gap 10 5 - 15 mmol/L [facility] Calcium 9.2 8.5 - 10.5 mg/dL [facility] Protein, Total 7.3 6.1 - 8.0 gm/dL [facility] Albumin 3.9 3.2 - 5.2 gm/dL [facility] Aspartate Aminotransferase 27 0 - 39 unit/L [facility] Alanine Aminotransferase 35 0 - 55 unit/L [facility] Alkaline Phosphatase 88 40 - 120 unit/L [facility] Bilirubin, Total <0.2(L) 0.2 - 1.3 mg/dL [facility] Bilirubin, Direct <0.1 0.0 - 0.3 mg/dL [facility] Est Glomerular Filtration Rate >60 >=60 [facility] Comment: This estimated GFR [...] the following links into your internet browser. http://Group 47/DHnkdep http://Group 47/DHMCnkf Blood specimen (specimen) 03/28/2016 7:16 AM EDT 03/28/2016 7:31 AM EDT Narrative Resulting Agency Comment Spec In Lab Juan Thomas MD CHEMISTRY ORDERABLES [facility] [place] [address] documented in this encounter Visit Diagnoses Diagnosis Morbid obesity with BMI of 50.0-59.9, adult Morbid obesity [place] (obstructive sleep apnea) Obstructive sleep apnea (adult) (pediatric) Diabetes mellitus type II, controlled Type II or unspecified type diabetes mellitus without mention of complication, not stated as uncontrolled Preop examination Preoperative examination, unspecified documented in this encounter Care Teams Ferryboat Helper Relationship Specialty Start Date End Date Marti Watkins APRN [facility] [address] [place] [address] PCP - General 12/01/13 03/27/16 documented as of this encounter
--- OUTSIDE RECORDS SUMMARY | 2024-05-25 13:08 | XMS_ITS | Encounter Summary ---
Author Organization [facility] Address [facility] [place] [address] Care Team Providers Care Middleware Consultant Name Role Phone Radhika Xiao APRN Primary Care Provider [phone] Reason for Visit * Auth/Cert Specialty Diagnoses [...] Expiration Date Visits Re quested Visits Authorized [id number] 1 1 Encounter Details Date Type Department Care Team (Late st Contact Info) Description 04/04/2016 2:00 PM EDT - 04/04/2016 3:00 PM EDT Surgery [place] [address] Julia Ashraf MD [facility] [place] [address] EGD, UPPER GI ENDOSCOPY (WRVU 2.09) Social [...] - 04/04/2016 4:19 PM EDT Please call [phone] before 8pm with problems, questions or concerns, after 5pm call the Hospital at [phone] and ask to speak to the Slope Hoist Operator aviation tactical readiness officer and the board operator will contact that person for you. [...] through Care Everywhere. * COLONOSCOPY : POST-OP ([place]) * EGD (UPPER ENDOSCOPY) : POST-OP ([place]) documented in this encounter Medications at Time [...] Reported on 12/28/2016 3 03/01/2016 12/28/2016 Glucosamine &[id number] mg Tablet Take 1 tablet by mouth [...] Electronically signed by: Orlando Cantor Gastroenterology Fellow [facility] Pager [phone] 04/04/2016 documented in this encounter Plan of [...] Report (04/04/2016 3:56 PM EDT) Final Diagnosis [id number] ? Location: 4T; EA05; A The signing pathologist has (i) examined [...] ng: (T1) ??ksb 04/09/2016 4:16 PM EDT [facility] GI Biopsy 04/04/2016 3:56 PM EDT 04/04/2016 3:56 PM EDT GI Biopsy 04/04/2016 3:56 PM EDT 04/04/2016 3:56 PM EDT GI Biopsy 04/04/2016 3:56 PM EDT 04/04/2016 3:56 PM EDT Julia Ashraf MD PATHOLOGY/CYTOLOGY O RDSTEPHANI Performing Organization Address City/[facility]/[place] [address] * Specimen to Pathology (surgical or derm) (04/04/2016 3:56 PM EDT) AP Specimen 04/04/2016 3:56 PM EDT 04/04/2016 3:57 PM EDT Narrative [facility] - 04/04/2016 3:57 PM EDT Specimen requisition ordered. ??Separate Pathology report to follow Julia Ashraf MD PATHOLOGY/CYTOLOGY O RAVEN Performing Organization Address [facility] [place] [address] * Specimen to Pathology (surgical or derm) (04/04/2016 3:56 PM EDT) AP Specimen 04/04/2016 3:56 PM EDT 04/04/2016 3:57 PM EDT Narrative [facility] - 04/04/2016 3:56 PM EDT Specimen requisition ordered. ??Separate Pathology report to follow Julia Ashraf MD PATHOLOGY/CYTOLOGY O RAVEN Performing Organization Address City/[facility]/ZIP Co de Phone Number [facility] [place] [address] * Specimen to Pathology (surgical or derm) (04/04/2016 3:56 PM EDT) AP Specimen 04/04/2016 3:56 PM EDT 04/04/2016 3:56 PM EDT Narrative [facility] - 04/04/2016 3:56 PM EDT Specimen requisition ordered. ??Separate Pathology report to follow Julia Ashraf MD PATHOLOGY/CYTOLOGY O RAVEN [facility] [place] [address] * COLONOSCOPY (04/04/2016 2:45 PM EDT) COLONOSCOPY [facility] Patient Name: Konstantin Hickey ? Procedure Date: 04/04/2016 2:45 PM ? Date of : 1980 ? Age: 35 ? Order #: [id number] ? Procedure: ? Colonoscopy Indications: ? Iron deficiency anemia Providers: ? Francesca Case, BERRY, ? Shavon Disla, Corrections Nurse, [place] ? MD Devaughn Referring MD: ?Radhika [...] (04/04/2016 2:44 PM EDT) UPPER GI ENDOSCOPY [facility] Patient Name: Konstantin Hickey ? Procedure Date: 04/04/2016 2:44 PM ? Date of : 1980 ? Age: 35 ? Order #: [id number] ? Procedure: ? Upper GI endoscopy Indications: ? Iron deficiency anemia Providers: ? Julia Ashraf, Francesca Lopez, RN, ? Shavon Disla, Corrections Nurse, [place] ? MD Devaughn, Maira Mendoza, ? [...] including non-brown portions. ? Julia Ashraf Julia Keating Acostajorge, 04/04/2016 3:23:58 PM This report has been signed electronically. Number of Addenda: 0 Note Initiated On: 04/04/2016 2:44 PM PROVATION 04/04/2016 2:44 PM EDT Radhika Xiao APRN GENERAL SURGICAL ORD ERABLES PROVATION documented in this encounter Visit Diagnoses Diagnosis Preop examination Preoperative examination, unspecified Iron deficiency anemia, unspecified iron deficiency anemia type documented in this encounter Administered Medications Inactive [...] 1437 (New Bag - Prov ider: Jj Hutchins RN)1455 (New Bag - Provider: Margarita Schwartz CRNA)1545 (Stopped - Provider: Margarita Schwartz CRNA) documented in this encounter Care Teams Middleware Consultant Relationship Specialty Start Date End Date Radhika Xiao, PROGRESS MAN [address] [place] [address] PCP - General Family Medicine 03/28/16 documented as of this encounter
[2024-05-25 20:14] LABS: Vitamin D 25 Total 63.3 ng/mL (30-100)
== END 2024-05-25 13:03 | disposition home or self-care (01) ==
LOC: NCHCN 13:02
PROVIDERS: PCP Nurse Practitioner Psychiatric/Mental Health; Visit Provider Nurse Practitioner Psychiatric/Mental Health
DX: F32.A Depression, unspecified (principal)
CPT/HCPCS: 82306

== ENCOUNTER 2024-06-09 20:09 | Emergency (ER) | payer BC, SELFPAY ==
[2024-06-09 20:17] VITALS: BP 129/73; PULSE 78; RESP 16; TEMP 36.4; O2SAT 97
--- OUTSIDE RECORDS SUMMARY | 2024-06-09 20:22 | XMS_ITS | Encounter Summary ---
[place] [address] Care Team Providers Care Ophthalmic Aide Name Role Phone Radhika Xiao APRN Primary Care Provider Encounter Details Date Type Department Care Team (Late st Contact Info) Description 02/10/2019 Telephone [place] [phone] Afsaneh Hdz Social History Tobacco Use Types [...] on filedocumented in this encounter Care Teams Ophthalmic Aide Relationship Specialty Start Date End Date Radhika Xiao APRN [address] [place] [address] [place] [address] PCP - General Family Medicine 03/28/16 documented as of this encounter
--- OUTSIDE RECORDS SUMMARY | 2024-06-09 20:22 | XMS_ITS | Encounter Summary ---
[place] [address] Care Team Providers Care Video And Sound Recorder Name Role Phone Radhika Xiao APRN Primary Care Provider Reason for Referral * Diagnostic Test (Routine) - Closed Specialty Diagnoses / Procedures Referred By Contac t Referred To Contact Radiology Diagnoses Status post bariatric surgery Abdominal pain, periumbilical Procedures CT Abdomen & Pelvis w Contrast Bonnie Mckeon APRN [facility] [place] [address] [facility] [place] [address] Referral ID Status Reason Start Date Expiration Date V isits Requested Visits Authorized [id number] Closed Specialty Service Requested 02/18/2019 04/18/2019 1 1 Reason for Visit * Diagnostic Test (Routine) - Closed Specialty Diagnoses / Procedures Referred By Contac t Referred To Contact Radiology Diagnoses Status post bariatric surgery Abdominal pain, periumbilical Procedures CT Abdomen & Pelvis w Contrast Bonnie Mckeon APRN [facility] [place] [address] [facility] [place] [address] Referral ID Status Reason Start Date Expiration Date V isits Requested Visits Authorized [id number] Closed Specialty Service Requested 02/18/2019 04/18/2019 1 1 Encounter Details Date Type Department Care Team (Latest Contact Info) Description 02/20/2019 6:40 AM EDT - 02/20/2019 11:59 PM EDT Hospital Encounter CT Scan at [facility] [place] [address] Bonnie Mckeon, GERALD [facility] [address] [place] [address] Status post bariatric surgery; Abdominal pain, periumbilical [...] mLs documented in this encounter Care Teams Video And Sound Recorder Relationship Specialty Start Date End Date Radhika Xiao, GERALD [address] [place] [address] PCP - General Family Medicine 03/28/16 documented as of this encounter
--- OUTSIDE RECORDS SUMMARY | 2024-06-09 20:22 | XMS_ITS | Encounter Summary ---
[place] [address] Care Team Providers Care Press Supervisor Name Role Phone Radhika Xiao APRN Primary Care Provider [phone] Reason for Visit * Reason Onset Date Comments Medication Refill 10/21/2020 Encounter Details Date Type Department Care Team (Late st Contact Info) Description 10/21/2020 [place] [address] Lizet Price APRN [facility] [place] [address] Gastroesophageal reflux disease, esophagitis presence not specified [...] specified documented in this encounter Care Teams Press Supervisor Relationship Specialty Start Date End Date Radhika Xiao APRN [facility] [place] [address] PCP - General Family Medicine 03/28/16 documented as of this encounter
--- OUTSIDE RECORDS SUMMARY | 2024-06-09 20:22 | XMS_ITS | Encounter Summary ---
[facility] [place] [id number] Care Team Providers Care Central Office Associate Name Role Phone Angela Xiaoi GERALD Primary Care Provider Encounter Details Date Type Department Care Team (Late st Contact Info) Description 02/05/2019 Notes [place] [address] [facility] [place] [id number] Social History Tobacco Use Types Packs/Day Years [...] and working the 2AM-2PM shift at the [facility] averages ~ 3 hours of sleep per [...] 02/05/19 304# 45% 42 2.75 years post-op [place] Body Weight (based on BMI of 25): [...] - protein, beans, carrots food at the penitentiary Meal 4 6 PM - grilled chicken and veggies (pt cooks) Fluid 2 c coffee, 64 oz Joe water, one Coke Zero ETOH Sporadically has 12-18 beers over several hours (1-2 x month) depending on social schedule Exercise: walks 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 Lives with his and 5 children (a new born, twins age 4, son age 5, daughter age 10). Vision at 2 years post-op: more energy - run a [employer] with his kids, tough [employer] Log[employer] Technologyder or spartan race 1 year post-op. Being [...] on filedocumented in this encounter Care Teams Central Office Associate Relationship Specialty Start Date End Date Radhika Xiao, GERALD [address] [place] [address] PCP - General Family Medicine 03/28/16 documented as of this encounter
--- OUTSIDE RECORDS SUMMARY | 2024-06-09 20:22 | XMS_ITS | Encounter Summary ---
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 ?? [...] 11/30/19?? 305#?? 45%?? 42?? 3.75 years post-op?? [place] Body Weight (based on BMI of 25): [...] walks all through his shift at the [employer]; will do more intentional exercise in the [...] on filedocumented in this encounter Care Teams Molder Wax Ball Relationship Specialty Start Date End Date Radhika Xiao APRN [address] [place] [address] PCP - General Family Medicine 03/28/16 documented as of this encounter
--- OUTSIDE RECORDS SUMMARY | 2024-06-09 20:22 | XMS_ITS | Encounter Summary ---
[place] [address] Care Team Providers Care Diet Attendant Name Role Phone Radhika Xiao APRN Primary Care Provider Encounter Details Date Type Department Care Team (Late st Contact Info) Description 02/06/2019 Telephone [place] [phone] Afsaneh Hdz Social History Tobacco Use Types [...] to schedule CT scan per Bonnie Linda- [employer] message. documented in this encounter Plan of Treatment Not on file documented as of this encounter Visit Diagnoses Not on filedocumented in this encounter Care Teams Diet Attendant Relationship Specialty Start Date End Date Radhika Xiao APRN [address] [place] [address] [address] [facility] [place] [address] PCP - General Family Medicine 03/28/16 documented as of this encounter
--- OUTSIDE RECORDS SUMMARY | 2024-06-09 20:22 | XMS_ITS | Encounter Summary ---
[place] [address] Care Team Providers Care Branch Sales Manager Name Role Phone Radhika Xiao APRN Primary Care Provider [phone] Encounter Details Date Type Department Care Team (Late st Contact Info) Description 02/15/2020 External Results [place] [id number] Social History Tobacco Use Types Packs/Day Years [...] on filedocumented in this encounter Care Teams Branch Sales Manager Relationship Specialty Start Date End Date Radhika Xiao APRN [facility] [address] [place], [place] [address] PCP - General Family Medicine 03/28/16 documented as of this encounter
--- OUTSIDE RECORDS SUMMARY | 2024-06-09 20:22 | XMS_ITS | Encounter Summary ---
Author Organization [facility] [place] [address] Care Team Providers Care Four H Club Agent Name Role Phone Radhika Xiao APRN Primary Care Provider [phone] Reason for Visit * Reason Onset Date Comments Medication Refill 04/25/2020 Encounter Details Date Type Department Care Team (Late st Contact Info) Description 04/25/2020 [place] [address] Bonnie Mckeon, CLOTH EXAMINER HAND [facility] DR [facility] [place] [address] Gastroesophageal reflux disease, esophagitis presence not specified [...] specified documented in this encounter Care Teams Four H Club Agent Relationship Specialty Start Date End Date Radhika Xiao APRN [facility] [place] [address] PCP - General Family Medicine 7/13/16 documented as of this encounter
--- OUTSIDE RECORDS SUMMARY | 2024-06-09 20:22 | XMS_ITS | Encounter Summary ---
Author Organization [facility] [place] [address] Care Team Providers Care Setter Helper Name Role Phone Radhika Xiao APRN Primary Care Provider [phone] Reason for Visit * Auth/Cert Specialty Diagnoses [...] Expiration Date Visits Re quested Visits Authorized [id number] 1 1 Encounter Details Date Type Department Care Team (Latest Contact Info) Description 05/14/2019 9:51 AM EDT - 05/14/2019 5:15 PM EDT Hospital [place] [id number] Juan Monge MD [facility] [place] [address] Discharge Disposition: Home Social History Tobacco Use [...] 101.3 F. The number for questions is [phone] before 5 PM weekdays and [phone] after 5 PM and weekends. Pain Medication: [...] at the General Surgery Outpatient [facility] [place] [facility]. You will receive a letter in the mail confirming the appointment date and time. Your follow-up is very important to us. Please call [phone] if you do not hear from us [...] DIAGNOSTIC performed by Julia Ashraf MD at [facility] ENDOSCOPY ??? PRO LAP GASTRIC BYPASS/ANABELLE-EN-Y N/A 05/16/2016 @LAPAROSCOPIC GASTROPLASTY, performed by Juan Monge MD at [facility] MAIN OR ??? PRO UPPER GI ENDOSCOPY, BIOPSY N/A 04/04/2016 UPPER GASTROINTESTINAL ENDOSCOPY,WITH BIOPSY SINGLE OR MULTIPLE performed by Julia Ashraf MD at [facility] ENDOSCOPY ??? PRO UPPER GI ENDOSCOPY, BIOPSY N/A 01/09/2018 EGD WITH BIOPSY (WRVU 2.49) performed by Ramón Minaya MD at [facility] ENDOSCOPY ??? PRO UPPER GI ENDOSCOPY, DIAGNOSTIC N/A 04/04/2016 EGD, UPPER GI ENDOSCOPY performed by Julia Ashraf MD at [facility] ENDOSCOPY ??? PRO UPPER GI ENDOSCOPY, DIAGNOSTIC N/A 05/16/2016 ENDOSCOPY, UPPER GI, DIAGNOSTIC, WITH OR WITHOUT SPECIMENS [facility] No current facility-administered medications on [...] Monge MD - 05/14/2019 5:15 PM EDT [facility] [place] Patient Name: Konstantin Hickey : [id number] MR#: [id number] Case Date: 05/14/2019 Surgeon: Surgeon(s) and Role: [...] Operative Note Patient Name: Konstantin Hickey : [id number] MR#: [id number] Case Date: 05/14/2019 Surgeon: Surgeon(s) and Role: [...] 05/14/2019 2:34 PM EDT Lap, Diagnostic Abdomen ([id number]) Yes 05/14/2019 12:46 PM EDT ABDOMINAL PAIN Unlisted Lap Proc Hrnap Herniorrhaphy Herniotomy ([id number]) Yes 05/14/2019 12:46 PM EDT ABDOMINAL PAIN Lap, Cholecystectomy (02207) Yes 05/14/2019 12:46 PM EDT ABDOMINAL PAIN Upper GI Endoscopy, Diagnostic ([id number]) Yes 05/14/2019 12:46 PM EDT ABDOMINAL PAIN documented in this encounter Results * Surgical Pathology Report (05/14/2019 2:34 PM EDT) Final Diagnosis [id number] ? Location: [facility]; [facility]; A The signing pathologist has (i) examined the relevant preparation(s) for the specimen(s) and (ii) rendered or confirmed the diagnosis(es). . ?Surgical Pathology DIAGNOSIS Gallbladder and contents: Chronic cholecystitis Electronically signed by: ??Sandhya Frankel MD Verified: ??05/20/2019 ?Pathologist Performed at: ??-[facility] Dept. [place], [place], [place] CLINICAL INFORMATION Specimen Submitted: A - Gallbladder and contents Clinical History and Diagnosis: Abdominal pain SPECIMEN PROCESSING A - Labeled/Fixative: Gallbladder and contents, fresh. Quantity/Size: ??Single, 9.1 x 4.8 x 3.0 cm. Specimen Description: Gallbladder, received Intact. Serosa: Ramos, glistening, unremarkable Adventitia: Ragged, quite related, pink, without gross lesions Lumen contents: Green, viscous, bile. Gallstones: Absent Mucosa: Brown green, granular Wall: 0.1 -0.3 cm thick. Duct: 0.9 x 0.5 cm, patent. Ink Designation: The hepatic margin is inked black Sections/Processi ng: Veterinary Science Teacher sections in 2 cassettes as follows: ?A1: ??cystic duct margin and small business sales representative mucosa. ?A2: ??Additional mucosa ??rh 05/20/2019 1:45 PM EDT [facility] GALLBLADDER STRUCTURE / Unknown 05/14/2019 2:34 PM EDT 05/14/2019 2:34 PM EDT Juan Monge MD PATHOLOGY/CYTOLOGY [place] Performing Organization Address [facility] Co de Phone Number [facility] [place] [place] [address] * Specimen to Pathology (05/14/2019 2:34 PM EDT) AP Specimen 05/14/2019 2:34 PM EDT 05/14/2019 2:34 PM EDT Narrative [facility] - 05/14/2019 2:34 PM EDT Specimen requisition ordered. ??Separate Pathology report to follow Juan Monge MD PATHOLOGY/CYTOLOGY [place] Performing Organization Address [facility] Co de Phone Number [place] [address] documented in this encounter Visit Diagnoses Not [...] of Surgery (Day of Procedure) 1053 ([facility] - Prov ider: Massiel Gregorio [...] RN) documented in this encounter Care Teams Setter Helper Relationship Specialty Start Date End Date Radhika Xiao, GERALD [address] [place] [address] PCP - General Family Medicine 03/28/16 documented as of this encounter
--- OUTSIDE RECORDS SUMMARY | 2024-06-09 20:22 | XMS_ITS | Encounter Summary ---
Author Organization [facility] Address [facility] [place] [address] Care Team Providers Care Supervisor In Circuit Testing Name Role Phone Radhika Xiao APRN Primary [...] Expiration Date Visits Re quested Visits Authorized [id number] 1 1 Encounter Details Date Type Department Care Team (Late st Contact Info) Description 05/14/2019 11:26 AM EDT - 05/14/2019 12:54 PM EDT [place] [phone] Juan Monge MD [facility] [place] [address] EGD, UPPER GI ENDOSCOPY (WRVU 2.09) Social [...] 101.3 F. The number for questions is [phone] before 5 PM weekdays and [phone] after 5 PM and weekends. Pain Medication: [...] at the General Surgery Outpatient Clinic - [facility]. You will receive a letter in the mail confirming the appointment date and time. Your follow-up is very important to us. Please call [phone] if you do not hear from us [...] DIAGNOSTIC performed by Julia Ashraf MD at [facility] ENDOSCOPY ??? PRO LAP GASTRIC BYPASS/ANABELLE-EN-Y N/A 05/16/2016 @LAPAROSCOPIC GASTROPLASTY, performed by Juan Monge MD at [facility] MAIN OR ??? PRO UPPER GI ENDOSCOPY, BIOPSY N/A 04/04/2016 UPPER GASTROINTESTINAL ENDOSCOPY,WITH BIOPSY SINGLE OR MULTIPLE performed by Julia Ashraf MD at [facility] ENDOSCOPY ??? PRO UPPER GI ENDOSCOPY, BIOPSY N/A 01/09/2018 EGD WITH BIOPSY (WRVU 2.49) performed by Ramón Minaya MD at [facility] ENDOSCOPY ??? PRO UPPER GI ENDOSCOPY, DIAGNOSTIC N/A 04/04/2016 EGD, UPPER GI ENDOSCOPY performed by Julia Ashraf MD at [facility] END[facility]COPY ??? PRO UPPER GI ENDOSCOPY, DIAGNOSTIC N/A 05/16/2016 ENDOSCOPY, UPPER GI, DIAGNOSTIC, WITH OR WITHOUT SPECIMENS [facility] No current facility-administered medications on file [...] Monge MD - 05/14/2019 5:15 PM EDT [facility] [place] Patient Name: Konstantin Hickey : [id number] MR#: [id number] Case Date: 05/14/2019 Surgeon: Surgeon(s) and Role: [...] Operative Note Patient Name: Konstantin Hickey : [id number] MR#: [id number] Case Date: 05/14/2019 Surgeon: Surgeon(s) and Role: [...] 05/14/2019 2:34 PM EDT Lap, Diagnostic Abdomen ([id number]) Yes 05/14/2019 12:46 PM EDT ABDOMINAL PAIN Unlisted Lap Proc Hrnap Herniorrhaphy Herniotomy ([id number]) Yes 05/14/2019 12:46 PM EDT ABDOMINAL PAIN Lap, Cholecystectomy ([id number]) Yes 05/14/2019 12:46 PM EDT ABDOMINAL PAIN Upper GI Endoscopy, Diagnostic ([id number]) Yes 05/14/2019 12:46 PM EDT ABDOMINAL PAIN documented in this encounter Results * Surgical Pathology Report (05/14/2019 2:34 PM EDT) Final Diagnosis [id number] ? Location: [facility]; [facility]; A The signing pathologist has (i) examined the relevant preparation(s) for the specimen(s) and (ii) rendered or confirmed the diagnosis(es). . ?Surgical Pathology DIAGNOSIS Gallbladder and contents: Chronic cholecystitis Electronically signed by: ??Sandhya Frankel MD Verified: ??05/20/2019 ?Pathologist Performed at: ??-[facility] [place]. [place], [place], [place] CLINICAL INFORMATION Specimen Submitted: A - Gallbladder and contents Clinical History and Diagnosis: Abdominal pain SPECIMEN PROCESSING A - Labeled/Fixative: Gallbladder and contents, fresh. Quantity/Size: ??Single, 9.1 x 4.8 x 3.0 cm. Specimen Description: Gallbladder, received Intact. Serosa: Elsa, glistening, unremarkable Adventitia: Ragged, quite related, pink, without gross lesions Lumen contents: Green, viscous, bile. Gallstones: Absent Mucosa: Brown green, granular Wall: 0.1 -0.3 cm thick. Duct: 0.9 x 0.5 cm, patent. Ink Designation: The hepatic margin is inked black Sections/Processi ng: Croze Cutter Helper sections in 2 cassettes as follows: ?A1: ??cystic duct margin and livestock sales representative mucosa. ?A2: ??Additional mucosa ??rh 05/20/2019 1:45 PM EDT [facility] GALLBLADDER STRUCTURE / Unknown 05/14/2019 2:34 PM EDT 05/14/2019 2:34 PM EDT Juan Monge MD PATHOLOGY/CYTOLOGY [place] Performing Organization Address [facility] Co de Phone Number [facility] [place] [address] * Specimen to Pathology (05/14/2019 2:34 PM EDT) AP Specimen 05/14/2019 2:34 PM EDT 05/14/2019 2:34 PM EDT Narrative [facility] - 05/14/2019 2:34 PM EDT Specimen requisition ordered. ??Separate Pathology report to follow Juan Monge MD PATHOLOGY/CYTOLOGY [place] Performing Organization Address [facility] Co de [place] [address] documented in this encounter Visit Diagnoses Not [...] Routine 1519 (Given - Provid er: Guerline oMnson RN)1524 (Given - Provider: Guerline Monson RN)1531 (Given - Provider: Guerline Monson RN) oxyCODONE (ROXICODONE) immediate release tablet 5 mg 5 mg, Oral, EVERY 4 HOURS PRN, Starting on Brooke 05/14/19 at 1502, Until Brooke 05/14/19 at 1919, Pain, Routine 1514 (Given - Provid er: Guerline Monson RN) documented in this encounter Care Teams Supervisor In Circuit Testing Relationship Specialty Start Date End Date Radhika Xiao APRN [address] [place] [address] PCP - General Family Medicine 03/28/16 documented as of this encounter
--- OUTSIDE RECORDS SUMMARY | 2024-06-09 20:22 | XMS_ITS | Encounter Summary ---
Author [place] [address] Care Team Providers Care Hand Fretted Instrument Maker Name Role Phone Radhika Xiao APRN Primary Care Provider Encounter Details Date Type Department Care Team (Late st Contact Info) Description 02/20/2022 Telephone [place] [phone] Afsaneh dHz Social History Tobacco Use Types Packs/Day Years [...] will be sending them a letter via [facility] or mail. documented in this encounter Plan of Treatment Not on file documented as of this encounter Visit Diagnoses Not on filedocumented in this encounter Care Teams Hand Fretted Instrument Maker Relationship Specialty Start Date End Date Radhika Xiao, NUT PICKER [address] [place] [address] PCP - General Family Medicine 03/28/16 documented as of this encounter
--- OUTSIDE RECORDS SUMMARY | 2024-06-09 20:22 | XMS_ITS | Encounter Summary ---
Author [facility] [place] [address] Care Team Providers Care Computer Game Designer Name Role Phone Radhika Xiao APRN Primary Care Provider Encounter Details Date Type Department Care Team (Late st Contact Info) Description 08/01/2020 Orders Only [place] [address] Lizet Price APRN [facility] [place] [address] Post-resection malabsorption; Disorder of iron metabolism; Status [...] status documented in this encounter Care Teams Computer Game Designer Relationship Specialty Start Date End Date Radhika Xiao APRN [facility] [place] [place] [address] PCP - General Family Medicine 03/28/16 documented as of this encounter
--- OUTSIDE RECORDS SUMMARY | 2024-06-09 20:22 | XMS_ITS | Encounter Summary ---
Author Organization [facility] [place] [address] Care Team Providers Care Map Clerk Name Role Phone Radhika Xiao APRN Primary Care Provider [phone] Reason for Visit * Auth/Cert Specialty Diagnoses [...] Expiration Date Visits Re quested Visits Authorized [id number] 1 1 Encounter Details Date Type Department Care Team (Late st Contact Info) Description 05/14/2019 12:47 PM EDT Anesthesia Event [place] [address] Leydi Abdalla MD [facility] [place] [address] Ramila Stone MD [facility] [place] [address] Anesthesia Record Procedure Summary Procedure Name Responsible [...] cephalic vein (lateral side of arm), left; jvfr-kni-jzzoha catheter system; 20 gauge; intradermal injection, tolerated [...] Procedure Summary Date: 05/14/19 Room / Location: [address] MAIN OR Anesthesia Start: 1247 Anesthesia Stop: 1513 Procedures: EGD, UPPER GI ENDOSCOPY (N/A Esophagus) LAPAROSCOPIC CHOLECYSTECTOMY (WRVU 10.47) (N/A Abdomen) LAPAROSCOPIC INTERNAL HERNIA REPAIR (WRVU *) (N/A Abdomen) LAPAROSCOPY, DIAGNOSTIC, ABDOMEN (WRVU 5.14) (N/A Abdomen) Diagnosis: (ABDOMINAL PAIN) Surgeon: Juan Thomas MD Responsible Provider: Leydi Abdalla MD Anesthesia Type: general ASA Status: 3 All Anesthesia Providers: Anesthesiologist: Leydi Abdalla MD Refund Clerk: Ramila Stone MD Vitals Value Taken Time [...] DIAGNOSTIC performed by Julia Ashraf MD at [facility] ENDOSCOPY ??? PRO LAP GASTRIC BYPASS/ANABELLE-EN-Y N/A 05/16/2016 @LAPAROSCOPIC GASTROPLASTY, performed by Juan Thomas MD at [facility] MAIN OR ??? PRO UPPER GI ENDOSCOPY, BIOPSY N/A 04/04/2016 UPPER GASTROINTESTINAL ENDOSCOPY,WITH BIOPSY SINGLE OR MULTIPLE performed by Julia Ashraf MD at [facility] ENDOSCOPY ??? PRO UPPER GI ENDOSCOPY, BIOPSY N/A 01/09/2018 EGD WITH BIOPSY (WRVU 2.49) performed by Ramón Minaya MD at [facility] ENDOSCOPY ??? PRO UPPER GI ENDOSCOPY, DIAGNOSTIC N/A 04/04/2016 EGD, UPPER GI ENDOSCOPY performed by Julia Ashraf MD at [facility] ENDOSCOPY ??? PRO UPPER GI ENDOSCOPY, DIAGNOSTIC N/A 05/16/2016 ENDOSCOPY, UPPER GI, DIAGNOSTIC, WITH OR WITHOUT SPECIMENS [facility] Social History Tobacco Use ??? Smoking [...] Starting on Brooke 05/14/19 at 1302, Until Brooke 05/14/19 at 1513, Anesthesia Intra-op, [...] mg documented in this encounter Care Teams Map Clerk Relationship Specialty Start Date End Date Radhika Xiao, EVENT MARKETING SPECIALIST [address] [facility] [place] [address] PCP - General Family Medicine 03/28/16 documented as of this encounter
--- OUTSIDE RECORDS SUMMARY | 2024-06-09 20:22 | XMS_ITS | Encounter Summary ---
[facility] [place] [address] Care Team Providers Care Install And Repair Technician Name Role Phone Andrylamarchandler Radhika GERALD Primary Care Provider Reason for Referral * Diagnostic Test (Routine) - Closed Specialty Diagnoses / Procedures Referred By Kitty carrion Referred To Contact Radiology Diagnoses Status post bariatric surgery Abdominal pain, periumbilical Procedures CT Abdomen & Pelvis w Contrast Bonnie Mckeon APRN [facility] [place] [address] [facility] [place] [address] Referral ID Status Reason Start Date Expiration Date V isits Requested Visits Authorized [id number] Closed Specialty Service Requested 02/18/2019 04/18/2019 1 1 Reason for Visit * Reason Comments Follow-up s/p bariatric surger y Encounter Details Date Type Department Care Team (Latest Contact Info) Description 02/05/2019 12:30 PM EDT Office [place] [address] Bonnie Mckeon APRN [facility] [place] [address] [facility] [place] [address] Disorder of iron metabolism; Status post bariatric [...] Mckeon APRN - 02/05/2019 12:30 PM EDT [facility] forestry support specialist Afsaneh [phone] and Krissy [phone] Dietitians: [phone] Surgeons/ nurse practitioners: [phone] Nurse line: [phone] Testing: Labwork: Today. Go to [facility], which is 1 flight below the General Surgery Clinic. I will notify you via [facility] regarding your results and recommendations A copy of your labwork and office visit today is sent to your primary healthcare economics consultant I am going to check with Dr Thomas, we will likely order a CT, our secretaries will give you a call Next visit: 3 months Routine visits are done at 4.8,12, 18 and 24 months after surgery, and yearly thereafter. Please call [phone] if you do not receive an appointment [...] of every month from 1-2 PM at [facility]- no registration required Nutrition and Activity apps- Baritasteasy2comply (Dynasec), My Fitness Pal, Lose It Internet resources: www.Qinec www.[employer]ma[employer] www.bariatriceaSchmoozer.Effective Measure www.CakeStyle.Effective Measure/blog [facility] facebook page: [email or web address]/[email or web address] MIAMIBariatricSurgery Books & Magazines: - Recipes for Life After Weight Loss Surgery by Nelda Wahl - Shrink Yourself by Dr Aleksandr Arriaza - Eating Well - www.Ziipa - Cooking Light- www.iSECUREtrac.Effective Measure documented in this encounter Progress Notes * [...] <1 to 11 years. ?? Compliance with [facility] follow up: good-considering his work schedule he has done well with follow up Attendance at [facility] post-operative graduate support group meetings: none Pre-op 03/28/16 Wt (lbs) 408# BMI 57.3 Visit #2 WT: 04/04/16: 403# HT: 5'10.75 Intro:??06/17/2015 ? Post-op ? %EBW lost Supplement compliance Labwork 06/06/2016 361.2# 50.72 19.1 -[facility] 1 ??BID -Fe SO4??325 mg qd --Vitamin C 500 mg qd - ca cit w/vit D 1 chew BID -B12 SL 500 mcg qd ?08/31/2016 ??316.13 ??44.5 ??37.6 ??Good. 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 Has 5 kids Health-related habits: Tobacco: none [...] Konstantin was advised of lab results via [facility] per patient request. RECOMMENDED BARIATRIC SURGERY [...] If labwork is done by the primary healthcare economics consultant: pleasesend a copy to the Bariatric Surgery Program, General Surgery Clinic, [facility], Questions regarding [facility] Bariatric Surgery Program patients: please call the Bariatric Surgery Program at [phone] documented in this encounter Plan of Treatment [...] Mckeon APRN CHEMISTRY ORDERABLES Performing Organization Address [facility]/ZIP Co de Phone Number [facility] [place] [address] * Folate, serum (02/05/2019 2:32 PM EDT) Folate 12.7 4.8 - 24.2 ng/mL [facility] Blood specimen (specimen) 02/05/2019 2:32 PM EDT 02/05/2019 2:56 PM EDT Narrative Resulting Agency Comment Spec In Lab Bonnie Mckeon SIDING MECHANIC CHEMISTRY ORDERABLES Performing Organization Address [facility] [[email or web address]] Co de Phone Number [facility] [place] [address] * Vitamin B12 (02/05/2019 2:32 PM EDT) Vitamin B12 1,223 232 - 1,245 pg/mL [facility] Blood specimen (specimen) 02/05/2019 2:32 PM EDT 02/05/2019 2:56 PM EDT Narrative Resulting Agency Comment Spec In Lab Bonnie Mckeon APRN CHEMISTRY ORDERABLES Performing Organization Address [facility] [[email or web address]] Co de Phone Number [facility] [place] [address] * (ABNORMAL) Vitamin B1, whole blood (02/05/2019 2:32 PM EDT) Vit B1 Lvl Wb (JANUARY) 186(H) 70 - 180 nmol/L [facility] Comment: ADDITIONAL INFORMATION This test was developed and its performance characteristics determined by [facility] in a manner consistent with CLIA requirements. This test has not been cleared or approved by the U.S. Food and Drug Administration. Test Performed by: [facility] - [facility] [address], [place] [address] Blood specimen (specimen) 02/05/2019 2:32 PM EDT 02/06/2019 9:38 AM EDT Narrative Resulting Agency Comment Spec In Lab Bonnie Ventura Linda DUARTE LAB SEND OUT ORDERAB LES Performing Organization Address City/[facility]/ZIP Co de Phone Number [facility] [place] [address] * Vitamin D, 25-Hydroxy (02/05/2019 2:32 PM EDT) [facility] Vitamin D Total 25 OH 30 [...] be considered to be insufficient or deficient. http://[employer].Effective Measure/nkf-guidelines http://[employer]C [employer] Group/nejm-VitD The IDS iSYS Vitamin D Immunoassay detects both 25-OH Vitamin D2 and 25-OH Vitamin D3, but only a total Vitamin D concentration is reported. Blood specimen (specimen) 02/05/2019 2:32 PM EDT 02/06/2019 7:22 AM EDT Narrative Resulting Agency Comment Spec In Lab Bonnie Mckeon APRN CHEMISTRY ORDERABLES Performing Organization Address [facility]/ZIP Co de Phone Number [facility] [place] [address] * Vitamin A (02/05/2019 2:32 PM EDT) [facility] Vitamin A (JANUARY) 47.8 32.5 - 78.0 mcg/dL [facility] Comment: ADDITIONAL INFORMATION This test was developed and its performance characteristics determined by [facility] in a manner consistent with CLIA requirements. This test has not been cleared or approved by the U.S. Food and Drug Administration. Test Performed by: [facility] - [facility] [address] [place] [address] Blood specimen (specimen) 02/05/2019 2:32 PM EDT 02/06/2019 8:41 AM EDT Narrative Resulting Agency Comment Spec In Lab Bonnie Mckeon APRN LAB SEND OUT ORDERAB LES Performing Organization Address City/[facility]/ZIP Co de Phone Number [facility] [place] [address] * Ferritin (02/05/2019 2:32 PM EDT) Ferritin 86 30 - 400 ng/mL [facility] Comment: Pediatric reference ranges not verified at [facility], interpret with caution. Reference ranges for females greater than 50 years of age approach values for men, i.e., 30-400 ng/mL. Blood specimen (specimen) 02/05/2019 2:32 PM EDT 02/05/2019 2:56 PM EDT Narrative Resulting Agency Comment Spec In Lab Bonnie Mckeon APRN CHEMISTRY ORDERABLES Performing Organization Address City/[facility]/ZIP Co de Phone Number [facility] [place] [address] * Iron and TIBC (02/05/2019 2:32 PM [...] Agency Comment Spec In Lab Bonnie Mckeon SIDING MECHANIC CHEMISTRY ORDERABLES [facility] [place] [address] * Hemoglobin A1c (02/05/2019 2:32 PM EDT) [...] Mellitus, Diabetes Care 2013; 36: Suppl. 1, S67-49 Estimated Average Glucose 114 mg/dL [facility] [...] into estimated average glucose values. ??Diabetes Care 2008:31(8):0380-1728. Blood specimen (specimen) 02/05/2019 2:32 PM EDT 02/05/2019 2:56 PM EDT Narrative Resulting Agency Comment Spec In Lab Bonnie Mckeon APRN CHEMISTRY ORDERABLES Performing Organization Address [facility] [[email or web address]] Co de Phone Number [facility] [place] [address] * Prealbumin (02/05/2019 2:32 PM EDT) Prealbumin 25 20 - 40 mg/dL [facility] Comment: Prealbumin levels are generally lower in the pediatric population; adult concentrations are usually attained near puberty. Blood specimen (specimen) 02/05/2019 2:32 PM EDT 02/05/2019 2:56 PM EDT Narrative Resulting Agency Comment Spec In Lab Bonnie Mckeon SIDING MECHANIC CHEMISTRY ORDERABLES Performing Organization Address [facility] [[email or web address]] Co de Phone Number [facility] [place] [address] * Comprehensive metabolic panel (non-fasting) (02/05/2019 2:32 [...] of body mass or the acutely ill. http://[employer]/[facility] MIAMInkf eGFR 120 >=60 mL/min/1. 73 m?? [facility] Comment: The eGFR was calculated using the CKD-EPI equation. As with all creatinine based estimates of kidney function, eGFR values calculated with the CKD-EPI equation are not accurate in patients with acute kidney failure, extremes of body mass or the acutely ill. http://[employer]/DHnkf Blood specimen (specimen) 02/05/2019 2:32 PM EDT 02/05/2019 2:56 PM EDT Narrative Resulting Agency Comment Spec In Lab Bonnie Mckeon APRN CHEMISTRY ORDERABLES [facility] [place] [address] * Hemogram (02/05/2019 2:32 PM EDT) White Blood Cell 6.8 4.0 - 9.5 x10(3)/mcL [facility] Red Blood Cell 4.75 4.58 - 5.54 x10(6)/[facility] LABORATORY Hemoglobin 14.3 13.7 - [...] CENTER LABORATORY Platelet 258 145 - 357 x10(3)/[facility] LABORATORY RDW Standard Deviation 39.5 36.0 - 45.0 [facility] LABORATORY RDW coefficient of variation 11.8 11.4 - 13.8 % [facility] Mean Platelet Volume 9.9 7.6 - 12.9 [facility] LABORATORY NRBC% auto 0.0 % [facility] NRBC Absolute 0.000 0.000 - 0.000 x10(3)/[facility] LABORATORY Blood specimen (specimen) 02/05/2019 2:32 PM EDT 02/05/2019 2:56 PM EDT Narrative Resulting Agency Comment Spec In Lab Bonnie Mckeon APRN HEMATOLOGY ORDERABLE S Performing Organization Address City/State/[facility] [[email or web address]] Co de Phone Number [facility] [place] [address] documented in this encounter Visit Diagnoses Diagnosis [...] periumbilic documented in this encounter Care Teams Install And Repair Technician Relationship Specialty Start Date End Date Radhika Xiao APRN [address] [place] [address] PCP - General Family Medicine 03/28/16 documented as of this encounter
--- OUTSIDE RECORDS SUMMARY | 2024-06-09 20:22 | XMS_ITS | Encounter Summary ---
Author Organization [facility] Address [facility] [place] [address] Care Team Providers Care Honeycomb Blanket Maker Name Role Phone Radhika Xiao GERALD Primary Care Provider Encounter Details Date Type Department Care Team (Latest Contact Info) Description 12/27/2017 9:12 AM EDT - 12/27/2017 11:59 PM EDT Hospital En[place] [address] Nathaniel Singh, STEAM BOX TENDER [facility] [address] [place] [address] Status post bariatric surgery; Generalized abdominal pain; [...] 10:12 am) PATIENT INFO: ID #: ? [id number] ?: ??[birth year] (37 yrs) Name: ? KONSTANTIN HICKEY ?Visit Date: 12/27/2017 09:57 am PERFORMED BY: Performed By: ? Pham Chambers RDMS Attending: ?Sada PAUL, Nakia Erickson Referred By: ?NATHANIEL SINGH Location: ? [place] SERVICE(S) PROVIDED: ??[facility] - Abdominal Complete Survey - [id number] INDICATIONS: ??abdominal pain, right upper quadrant and [...] 12/27/2017 10:12 am) PATIENT INFO: ID #: [id number] : [birth year] (37 yrs) Name: KONSTANTIN HICKEY Visit Date: 12/27/2017 09:57 am PERFORMED BY: Performed By: Pham Chambers RDMS Attending: Nakia Tomlin MD Referred By: NATHANIEL SINGH Location: [place] SERVICE(S) PROVIDED: [facility] - Abdominal Complete Survey - [id number] INDICATIONS: abdominal pain, right upper quadrant and [...] specified documented in this encounter Care Teams Honeycomb Blanket Maker Relationship Specialty Start Date End Date Radhika Xiao APRN [address] [place] [address] PCP - General Family Medicine 03/28/16 documented as of this encounter
--- OUTSIDE RECORDS SUMMARY | 2024-06-09 20:22 | XMS_ITS | Encounter Summary ---
[facility] [place] [address] Care Team Providers Care Photographic Laboratory Technician Name Role Phone Radhika Xiao GERALD Primary Care Provider [phone] Reason for Visit * Reason Comments Follow-up Encounter Details Date Type Department Care Team (Late st Contact Info) Description 11/30/2019 1:30 PM EDT Office [place] [address] Dorys Rivers, OBSERVER ELECTRICAL PROSPECTING [facility] [address] Cinthya Donaldson, AMANDA [facility] [place] [address] History of prediabetes; History of hyperlipidemia; Post-resection [...] Rivers T - 11/30/2019 1:30 PM EDT [facility] instructional support services director Afsaneh [phone] and Krissy [phone] Dietitians: [phone] Surgeons/ nurse practitioners: [phone] Nurse line: [phone] Keep up the great work Konstantin!! Testing: Labwork: Today. Go to Rn Admit Area 3L, which is 1 flight below the General Surgery Clinic (or anyDH lab including [facility] (open on Saturdays) Please note that you will always receive a letter with lab results and recommendations. Read the letter carefully and follow recommendations. The letter also contains information regarding your next lab draw. A copy of your lab tests and office visit today is sent to your primary intensive care unit registered nurse Next visit: May Routine visits are done at 4.8,12, 18 and 24 months after surgery, and yearly thereafter. Please call [phone] if you do not receive an appointment [...] Our post surgery support group meets at [facility]- no registration required 1. on the first Saturday of every month from 1:00 PM-2:00 PM 2. On the saturday of the month from 4:30 PM to 5:30 PM Nutrition and Activity apps- Baritastic, My Fitness Pal, Lose It, My Plate Internet resources: www.CodeSquare wwwTriond www.WorldViz www.Chef Dovunque.BoomBang/blog [facility] facebook page: https://www.facebook.com/[facility] CITYBariatricSurgery Books & Magazines: - Recipes for Life After Weight Loss Surgery by Nelda Wahl - Shrink Yourself by Dr Aleksandr Arriaza - Eating Well - www.Woofound.com - Cooking Light- www.cookinglight.BoomBang Anxiety: The Happiness Trap by Sascha Bañuelos The Mindfulness and acceptance workbook for anxiety By Neftali Nagel. Mindful eating: What are you Hungry For? By Adal Gonzalez The Mindful Diet by Bre Maza and the [facility] group. Emotional eating: End Emotional Eating by Arabella Kelley Calming the Emotional Storm Kailyn Arias documented in this encounter Progress Notes * Dorys Rivers - 11/30/2019 1:30 PM EDT Reason for visit: Follow up S/P laparoscopic Anabelle-en-Y gastric bypass by Dr. Thomas on 05/16/16. ? Complications summary: Early None Late None ? Visits summary: Compliance with [facility] follow up: good Attendance at [facility] post-operative graduate support group meetings: none Pre-op 03/28/16 Wt (lbs) 408 BMI 57.3 Visit #2 WT: 04/04/16: 403# HT: 5'10.75 Intro: 06/17/2015 ? Post-op ? %EBW lost Supplement compliance Labwork 06/06/2016 361 50.72 19.1 -[place] 1 BID -Fe SO4 325 mg qd --Vitamin C 500 mg qd - ca cit w/vit D 1 chew BID -B12 SL 500 mcg qd ?08/31/2016 ??316 ??44.5 ??37.6 ??Good. -MVI 1 tab qd -BA Ca Cit 1 chew BID -B12 SL 500 mcg qd -Ferrous Sulfate 325 mg qd w/vit C 500 mg qd 08/31: Hg 13.6 Hct 40.7 [id number] iron 29 sat 11% B12 1820 Nl B1 fol CMP PTH 55 D 27 prealbumin 17 A1c 5.4 12/26/16 285 40.03 53 -MVI 1 tab qd -BA Ca Citrate 1 chew BID -B12 SL 500 mcg qd -Fe Se5673 mg w/vit C 500 mg BID 12/28: [...] surgery, was intolerant had repeat PSG at [facility] in April - PSG 03/29/15 at wt [...] 03/30/16: IgA 142; TTg IgA Ab <1.2 --medical billing coder blood donor prior to surgery ??? Psychosocial [...] by Julia Ashraf MD at [facility] ENDOSCOPY ??? PRO LAP GASTRIC BYPASS/ANABELLE-EN-Y N/A 05/16/2016 @LAPAROSCOPIC GASTROPLASTY, performed by Juan Thomas MD at [facility] MAIN OR ??? PRO LAP, CHOLECYSTECTOMY N/A 05/14/2019 LAPAROSCOPIC CHOLECYSTECTOMY (WRVU 10.47) performed by Juan Thomas MD at [facility] MAIN OR ??? PRO LAP, DIAGNOSTIC ABDOMEN N/A 05/14/2019 LAPAROSCOPY, DIAGNOSTIC, ABDOMEN (WRVU 5.14) performed by Juan Thomas MD at [facility] MAIN OR ??? PRO LAP, HERNIA REPAIR PROC, UNLIST N/A 05/14/2019 LAPAROSCOPIC INTERNAL HERNIA REPAIR (WRVU *) performed by Juan Thomas MD at [facility] MAIN OR ??? PRO UPPER GI ENDOSCOPY, BIOPSY N/A 04/04/2016 UPPER GASTROINTESTINAL ENDOSCOPY,WITH BIOPSY SINGLE OR MULTIPLE performed by Julia Ashraf MD at [facility] ENDOSCOPY ??? PRO UPPER GI ENDOSCOPY, BIOPSY N/A 01/09/2018 EGD WITH BIOPSY (WRVU 2.49) performed by Ramón Minaya MD at [facility] ENDOSCOPY ??? PRO UPPER GI ENDOSCOPY, DIAGNOSTIC N/A 04/04/2016 EGD, UPPER GI ENDOSCOPY performed by Julia Ashraf MD at [facility] ENDOSCOPY ??? PRO UPPER GI ENDOSCOPY, DIAGNOSTIC N/A 05/16/2016 ENDOSCOPY, UPPER GI, DIAGNOSTIC, WITH OR WITHOUT SPECIMENS [facility] ??? PRO UPPER GI ENDOSCOPY, DIAGNOSTIC N/A 05/14/2019 EGD, UPPER GI ENDOSCOPY performed by Juan Thomas MD at 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/ Health-related habits: Nicotine: as noted above Alcohol: [...] If labwork is done by the primary intensive care unit registered nurse: pleasefax a copy to the Bariatric Surgery Program, General Surgery Clinic, [facility], ), Questions regarding [facility] Bariatric Surgery Program patients: please call the Bariatric Surgery Program at [phone] documented in this encounter Plan of Treatment [...] EDT) Folate 18.9 4.8 - 24.2 ng/mL [facility] Blood specimen (specimen) 11/30/2019 3:06 PM EDT 11/30/2019 3:19 PM EDT Narrative Resulting Agency Comment Spec In Lab Dorys Rivers OBSERVER ELECTRICAL PROSPECTING CHEMISTRY ORDERAB LES Performing Organization Address City/[facility]/ZIP Co de Phone Number [facility] [place] [address] * Vitamin B12 (11/30/2019 3:06 PM EDT) Vitamin B12 1,140 232 - 1,245 pg/mL [facility] Blood specimen (specimen) 11/30/2019 3:06 PM EDT 11/30/2019 3:19 PM EDT Narrative Resulting Agency Comment Spec In Lab Dorys Rivers OBSERVER ELECTRICAL PROSPECTING CHEMISTRY ORDERAB LES Performing Organization Address City/[facility]/ZIP Co de Phone Number [facility] [place] [address] * Vitamin D, 25-Hydroxy (11/30/2019 3:06 PM EDT) Vitamin D Total 25 OH 37 30 - 100 ng/mL [facility] Comment: As of 2019, 25-hydroxyvitamin D testing has moved from the [employer] to the [facility]. No substantial change in measured values is expected. Blood specimen (specimen) 11/30/2019 3:06 PM EDT 11/30/2019 3:19 PM EDT Narrative Resulting Agency Comment Spec In Lab Dorys Rivers OBSERVER ELECTRICAL PROSPECTING CHEMISTRY ORDERAB LES Performing Organization Address [facility] Co de Phone Number [facility] [place] [address] * PTH (11/30/2019 3:06 PM EDT) Parathyroid Hormone 54 15 - 65 pg/mL [facility] Blood specimen (specimen) 11/30/2019 3:06 PM EDT 11/30/2019 3:19 PM EDT Narrative Resulting Agency Comment Spec In Lab Dorys Rivers OBSERVER ELECTRICAL PROSPECTING CHEMISTRY ORDERAB LES Performing Organization Address [facility] Co de Phone Number [facility] [place] [address] * Ferritin (11/30/2019 3:06 PM EDT) Ferritin 91 30 - 400 ng/mL [facility] Comment: Pediatric reference ranges not verified at [facility], interpret with caution. Reference ranges for females greater than 50 years of age approach values for men, i.e., 30-400 ng/mL. Blood specimen (specimen) 11/30/2019 3:06 PM EDT 11/30/2019 3:19 PM EDT Narrative Resulting Agency Comment Spec In Lab Dorys Rivers OBSERVER ELECTRICAL PROSPECTING CHEMISTRY ORDERAB LES Performing Organization Address [facility] Co de Phone Number [facility] [place] [place] [address] * Iron and TIBC (11/30/2019 3:06 PM EDT) Iron 66 45 - 160 mcg/dL [facility] TIBC 333 250 - 450 mcg/dL [facility] Iron Saturation 20 20 - 50 % [facility] Blood specimen (specimen) 11/30/2019 3:06 PM EDT 11/30/2019 3:19 PM EDT Narrative Resulting Agency Comment Spec In Lab Dorys T Silvestre DUARTE CHEMISTRY ORDERAB LES [facility] [place] [address] * Hemoglobin A1c (11/30/2019 3:06 PM EDT) Hemoglobin A1c 5.4 4.3 - 5.6 % [facility] Comment: Reference Range: 4.3 - [...] Mellitus, Diabetes Care 2013; 36: Suppl. 1, S67- Estimated Average Glucose 109 mg/dL [facility] Comment: eAG equivalents for HbA1c [...] into estimated average glucose values. ??Diabetes Care 2008:31(8):9758-9718. Blood specimen (specimen) 11/30/2019 3:06 PM EDT 11/30/2019 3:19 PM EDT Narrative Resulting Agency Comment Spec In Lab Dorys Rivers APRN CHEMISTRY ORDERAB LES Performing Organization Address City/State/[facility] Co de Phone Number [facility] [place] [address] * Lipid Panel (Reflex Direct LDL) (11/30/2019 3:06 PM EDT) Cholesterol, Total 172 mg/dL [facility] Comment: Lower Risk: <200 mg/dL Average Risk: 200-239 mg/dL Higher Risk: >bb=906 mg/dL Triglyceride 108 mg/dL [facility] Comment: Average Risk/Lower Risk: <150 mg/dL Borderline High Risk: 150-199 mg/dL High Risk: 200-499 mg/dL Very High Risk: >sp=915 mg/dL HDL Cholesterol 45 mg/dL [facility] Comment: Males: ?? Higher Risk: <40 mg/dL Females: ?? HIgher Risk: <50 mg/dL LDL Cholesterol 105 mg/dL [facility] Comment: Lowest Risk: <100 mg/dL Lower Risk: 100-129 mg/dL Borderline High Risk: 130-159 mg/dL High Risk: 160-189 mg/dL Very High Risk: >cx=456 mg/dL Cholesterol/HDL Ratio 3.8 ratio [facility] Lipid Interpretation See Note [facility] Comment: Lipid management should be guided by a patient? s ASCVD risk, goals and preferences. ACC/AHA Guidelines recommend high intensity statin if clinical ASCVD or LDL greater than or equal to 190 mg/dL. http://Issio SolutionsurFastCall.com/JBR-PXB-Urwhbaqlb Adults aged 40-75 with LDL 70-189 mg/dL should have their 10 year ASCVD risk estimated with the ACC/AHA ASCVD risk sheetmetal trades worker http://tools.acc.org/AEAJP-Becj-Ozqgsiggc/ Statin should be discussed if risk greater [...] Lab Dorys Rivers APRN CHEMISTRY ORDERAB LES [facility] [place] [address] * Comprehensive metabolic panel (non-fasting) (11/30/2019 3:06 PM EDT) Glucose 94 65 - 199 mg/dL [facility] Comment:Diabetes: >=200 mg/d L plus symptoms Blood Urea Nitrogen 16 10 - 20 mg/dL [facility] Creatinine 0.86 0.80 - 1.50 mg/dL [facility] Sodium 140 135 - 145 mmol/L [facility] Potassium 4.3 3.5 - 5.0 mmol/L [facility] Comment: Please note: ??Patients with WBC >100,000 may have falsely elevated Potassium levels. ??For accurate Potassium quantification in these patients send serum separator tube (gold top) for subsequent determinations. ??Contact the Clinical Chemistry Laboratory if there are any questions. Chloride 100 98 - 107 mmol/L [facility] Carbon Dioxide 29 22 - 31 mmol/L [facility] Anion Gap 11 5 - 15 mmol/L [facility] Calcium 9.5 8.5 - 10.5 mg/dL [facility] Protein, Total 7.2 6.1 - 8.0 gm/dL [facility] Albumin 4.6 3.2 - 5.2 gm/dL [facility] Aspartate Aminotransferase 31 0 - 39 unit/L [facility] Alanine Aminotransferase 35 0 - 55 unit/L [facility] Alkaline Phosphatase 84 40 - 130 unit/L [facility] Bilirubin, Total 0.2 0.2 - 1.3 mg/dL [facility] Est Glomerular Filtration Rate 111 >=60 mL/min/1. 73 m?? [facility] Comment: The eGFR was calculated using the CKD-EPI equation. As with all creatinine based estimates of kidney function, eGFR values calculated with the CKD-EPI equation are not accurate in patients with acute kidney failure, extremes of body mass or the acutely ill. http://K2 Intelligence/[facility] CITYnkf eGFR 128 >=60 mL/min/1. 73 m?? [facility] Comment: The eGFR was calculated using the CKD-EPI equation. As with all creatinine based estimates of kidney function, eGFR values calculated with the CKD-EPI equation are not accurate in patients with acute kidney failure, extremes of body mass or the acutely ill. http://K2 Intelligence/[facility] CITYnkf Blood specimen (specimen) 11/30/2019 3:06 PM EDT 11/30/2019 3:19 PM EDT Narrative Resulting Agency Comment Spec In Lab Dorys Rivers APRN CHEMISTRY ORDERAB LES Performing Organization Address City/State/[facility] Co de Phone Number [facility] [place] [address] * (ABNORMAL) Hemogram (11/30/2019 3:06 PM EDT) White Blood Cell 5.5 4.0 - 9.5 x10(3)/mc L [facility] Red Blood Cell 4.53(L) 4.58 - 5.54 x10(6)/mc L [facility] Hemoglobin 13.7 13.7 - 16.5 gm/dL [facility] Hematocrit 42.5 40.5 - 48.5 % [facility] Mean Cell Volume 93.8(H) 82.9 - 93.1 fL [facility] Mean Cell Hemoglobin 30.2 27.5 - 32.1 pg [facility] Mean Cell Hemoglobin Concentration 32.2 32.0 - 35.7 gm/dL [facility] Platelet 235 145 - 357 x10(3)/mc L [facility] RDW Standard Deviation 40.9 36.0 - 45.0 fL [facility] RDW coefficient of variation 11.8 11.4 - 13.8 % [facility] Mean Platelet Volume 10.3 7.6 - 12.9 fL [facility] NRBC% auto 0.0 % [facility] NRBC Absolute 0.000 0.000 - 0.000 x10(3)/mc L [facility] Blood specimen (specimen) 11/30/2019 3:06 PM EDT 11/30/2019 3:19 PM EDT Narrative Resulting Agency Comment Spec In Lab Dorys Rivers APRN HEMATOLOGY ORDERA BLES Performing Organization Address City/State/[facility] Co de Phone Number [facility] [place] [place] [address] documented in this encounter Visit Diagnoses Diagnosis [...] disorder documented in this encounter Care Teams Photographic Laboratory Technician Relationship Specialty Start Date End Date Radhika Xiao APRN [address] [place] [address] PCP - General Family Medicine 03/28/16 documented as of this encounter
--- OUTSIDE RECORDS SUMMARY | 2024-06-09 20:22 | XMS_ITS | Encounter Summary ---
Author Organization [facility] Address [facility] [place] [address] Care Team Providers Care Field Identification Specialist Name Role Phone Radhika Xiao APRN Primary Care Provider Reason for Visit * Reason Comments Follow Up Surgery Encounter Details Date Type Department Care Team (Late st Contact Info) Description 06/11/2019 10:40 AM EDT Office [place] [address] Juan Thomas MD [facility] [place] [address] Status post bariatric surgery Social History Tobacco [...] status documented in this encounter Care Teams Field Identification Specialist Relationship Specialty Start Date End Date Radhika Xiao, PHYSICAL THERAPY PROFESSOR [address] [place] [address] PCP - General Family Medicine 03/28/16 documented as of this encounter
--- OUTSIDE RECORDS SUMMARY | 2024-06-09 20:22 | XMS_ITS | Encounter Summary ---
Author Organization [place] [address] Care Team Providers Care Pneumatic Tube Repairer Name Role Phone Radhika Xiao APRN Primary Care Provider [phone] Reason for Visit * Auth/Cert Specialty Diagnoses / Procedures Referred By Contac t Referred To Contact Diagnoses s/p bariatric surgery, history of ulcer, GERD, abdominal pain Procedures PRO UPPER GI ENDOSCOPY, DIAGNOSTIC EGD, UPPER GI ENDOSCOPY Referral ID Status Reason Start Date Expiration Date Visits Re quested Visits Authorized [id number] 1 1 Encounter Details Date Type Department Care Team (Late st Contact Info) Description 01/09/2018 10:10 AM EDT Anesthesia [place] [address] Neelam Escobar MD [facility] [place] [address] Anesthesia Record Procedure Summary Procedure Name Responsible [...] 0949; metacarpal vein (top of hand), right; drbl-bzd-ibwbee catheter system; 20 gauge; distraction; 01/09/18; 1103 [...] Escobar MD - 01/09/2018 3:20 PM EDT [facility] Department of Anesthesiology Post-procedure Note Patient: Konstantin Hickey Procedure Summary Date Anesthesia Start Anesthesia Stop Room / Location 01/09/18 1010 1024 [facility] ENDO 7 / [facility] ENDOSCOPY Procedure Diagnosis Surgeon Responsible Provider EGD WITH BIOPSY (WRVU 2.49) (N/A Trunk) Generalized abdominal pain; Status post bariatric surgery; Gastroesophageal reflux disease, esophagitis presence not specified (s/p bariatric surgery, history of ulcer, GERD, abdominal pain) Ramón Minaya MD Clark, Jeffrey A, MD All Anesthesia Providers: Anesthesiologist: Neelam Escobar MD MERGERS AND ACQUISITIONS CONSULTANT: Stephanie Oakley CRNA Most Recent Vitals: 01/09/18 [...] DIAGNOSTIC performed by Julia Ashraf MD at [facility] ENDOSCOPY ??? PRO LAP GASTRIC BYPASS/ANABELLE-EN-Y N/A 05/16/2016 @LAPAROSCOPIC GASTROPLASTY, performed by Juan Thomas MD at [facility] MAIN OR ??? PRO UPPER GI ENDOSCOPY, BIOPSY N/A 04/04/2016 UPPER GASTROINTESTINAL ENDOSCOPY,WITH BIOPSY SINGLE OR MULTIPLE performed by Julia Ashraf MD at [facility] ENDOSCOPY ??? PRO UPPER GI ENDOSCOPY, DIAGNOSTIC N/A 04/04/2016 EGD, UPPER GI ENDOSCOPY performed by Julia Ashraf MD at [facility] ENDOSCOPY ??? PRO UPPER GI ENDOSCOPY, DIAGNOSTIC N/A 05/16/2016 ENDOSCOPY, UPPER GI, DIAGNOSTIC, WITH OR WITHOUT SPECIMENS performed by [facility] Social History Substance Use Topics ??? [...] risks discussed with patient. Plan discussed with MERGERS AND ACQUISITIONS CONSULTANT. PAT Staff Note documented in this encounter [...] /hr documented in this encounter Care Teams Pneumatic Tube Repairer Relationship Specialty Start Date End Date Radhika Xiao, GERALD [address] [place] [address] PCP - General Family Medicine 03/28/16 documented as of this encounter
--- OUTSIDE RECORDS SUMMARY | 2024-06-09 20:22 | XMS_ITS | Encounter Summary ---
[place] [address] Care Team Providers Care Centrex Radio Operator Name Role Phone Radhika Xiao APRN Primary Care Provider Encounter Details Date Type Department Care Team (Late st Contact Info) Description 02/12/2019 Orders Only [place] [id number] Krissy Rangel Social History Tobacco Use Types [...] on filedocumented in this encounter Care Teams Centrex Radio Operator Relationship Specialty Start Date End Date Radhika Xiao APRN [address] [place] [address] PCP - General Family Medicine 03/28/16 documented as of this encounter
--- OUTSIDE RECORDS SUMMARY | 2024-06-09 20:22 | XMS_ITS | Encounter Summary ---
[facility] [place] [address] Care Team Providers Care Conveyor Mechanic Name Role Phone Radhika Xiao APRN Primary Care Provider Reason for Visit * Auth/Cert Specialty Diagnoses / Procedures Referred By Contac t Referred To Contact Diagnoses s/p bariatric surgery, history of ulcer, GERD, abdominal pain Procedures PRO UPPER GI ENDOSCOPY, DIAGNOSTIC EGD, UPPER GI ENDOSCOPY Referral ID Status Reason Start Date Expiration Date Visits Re quested Visits Authorized [id number] 1 1 Encounter Details Date Type Department Care Team (Latest Contact Info) Description 01/09/2018 8:18 AM EDT - 01/09/2018 11:18 AM EDT Hospital En[place] [address] [facility] [place] [address] Discharge Disposition: Home Social History Tobacco Use [...] Report (01/09/2018 10:24 AM EDT) Final Diagnosis [id number] ? Location: 4T; EA07; A The signing [...] Underwood MD Verified: ??01/13/2018 ?Pathologist Performed at: ??-[facility] Dept. of Pathology, [place], [place] CLINICAL INFORMATION Specimen Submitted: A - [...] ng: (T1) ??sns 01/13/2018 4:46 PM EDT [facility] GI Biopsy 01/09/2018 10:2 4 AM EDT 01/09/2018 10:24 AM EDT GI Biopsy 01/09/2018 10:2 4 AM EDT 01/09/2018 10:24 AM EDT Ramón Minaya MD PATHOLOGY/CYTOLOGY ORDERABLES Performing Organization Address City/[facility]/[place] [address] * Specimen to Pathology (01/09/2018 10:24 AM EDT) AP Specimen 01/09/2018 10:2 4 AM EDT 01/09/2018 1:06 PM EDT Narrative [facility] - 01/09/2018 1:06 PM EDT Specimen requisition ordered. ??Separate Pathology report to follow Resulting Agency Comment Spec In Lab Ramón Minaya MD PATHOLOGY/CYTOLOGY ORDERABLES Performing Organization Address [facility] [place] [address] * Specimen to Pathology (01/09/2018 10:24 AM EDT) AP Specimen 01/09/2018 10:2 4 AM EDT 01/09/2018 1:06 PM EDT Narrative [facility] - 01/09/2018 1:06 PM EDT Specimen requisition ordered. ??Separate Pathology report to follow Resulting Agency Comment Spec In Lab Ramón Minaya MD PATHOLOGY/CYTOLOGY ORDERABLES Performing Organization Address City/[facility] [place] [address] * UPPER GI ENDOSCOPY (01/09/2018 10:00 AM EDT) UPPER GI ENDOSCOPY [facility] Procedure Date: 01/09/2018 10:00 AM ? Patient Name: Konstantin Hickey ? Date of : 1980 ? Age: 37 ? Order #: [id number] ? Instrument Name: [id number] ? Procedure: ? Upper GI endoscopy Indications: [...] Procedure Code(s): ?? --- Professional --- ? 23627, Esophagogastroduoden oscopy, ? flexible, transoral; with biopsy, [...] than malignant ? neoplasm CPT copyright 2016 [employer]. All rights reserved. The codes documented in this report are preliminary and upon computer language coder review may be revised to meet current [...] RN) documented in this encounter Care Teams Conveyor Mechanic Relationship Specialty Start Date End Date Radhika Xiao APRN [address] [place] [address] PCP - General Family Medicine 03/28/16 documented as of this encounter
--- OUTSIDE RECORDS SUMMARY | 2024-06-09 20:22 | XMS_ITS | Clinical Summary ---
Author Organization [facility] Address [facility] [place] [address] Care Team Providers Care Brand Recorder Name Role Phone Radhika Xiao APRN Primary Care Provider [phone] Allergies Active Allergy Reactions Criticality Noted Date [...] B vaccine (0-59 yr s) (1) 2001 Tetanus/Diphtheria/Pertussis Vaccines (1 - Tdap) 2001 Pre-DM monitoring (HgbA1C or FBG) 2022 [...] Hemoglobin A1c 5.4 4.3 - 5.6 % [facility] Comment: Reference Range: 4.3 - [...] 1, S67-74 Estimated Average Glucose 109 mg/dL [facility] Comment: eAG equivalents for HbA1c [...] into estimated average glucose values. ??Diabetes Care 2008:31(8):3831-4830. Blood specimen (specimen) 11/30/2019 3:06 PM EDT 11/30/2019 3:19 PM EDT Narrative Resulting Agency Comment Spec In Lab Dorys Rivers APRN CHEMISTRY ORDERAB LES [facility] [place] [id number] * Lipid Panel (Reflex Direct LDL) (11/30/2019 3:06 PM EDT) Cholesterol, Total 172 mg/dL [facility] Comment: Lower Risk: <200 mg/dL Average Risk: 200-239 mg/dL Higher Risk: >bk=331 mg/dL Triglyceride 108 mg/dL [facility] Comment: Average Risk/Lower Risk: <150 mg/dL Borderline High Risk: 150-199 mg/dL High Risk: 200-499 mg/dL Very High Risk: >zi=993 mg/dL HDL Cholesterol 45 mg/dL [facility] Comment: Males: ?? Higher Risk: <40 mg/dL Females: ?? HIgher Risk: <50 mg/dL LDL Cholesterol 105 mg/dL [facility] Comment: Lowest Risk: <100 mg/dL Lower Risk: 100-129 mg/dL Borderline High Risk: 130-159 mg/dL High Risk: 160-189 mg/dL Very High Risk: >ac=466 mg/dL Cholesterol/HDL Ratio 3.[address] [facility] Lipid Interpretation See Note [facility] Comment: Lipid management should be guided by a patient? s ASCVD risk, goals and preferences. ACC/AHA Guidelines recommend high intensity statin if clinical ASCVD or LDL greater than or equal to 190 mg/dL. http://Unbound Concepts.com/HLZ-NKW-Nlxzbxweb Adults aged 40-75 with LDL 70-189 mg/dL should have their 10 year ASCVD risk estimated with the ACC/AHA ASCVD risk estimator printing plate making http://tools.acc.org/KZAGR-Epqv-Jsiemwtek/ Statin should be discussed if risk greater [...] Agency Comment Spec In Lab Dorys Rivers SPECIAL POPULATION PARAPROFESSIONAL CHEMISTRY ORDERAB LES [facility] [place] [address] from Last 3 Months or Most Recently Relevant to Health Maintenance Advance Directives * Full Code (Latest Code Status on File) Date Activated Date Inactivated Comments 05/16/2016 7:24 AM 05/17/2016 4:08 PM Question Answer Comments Does patient have capacity to make decision: Yes Care Teams Brand Recorder Relationship Specialty Start Date End Date Radhika Xiao APRN [address] [place], [place] [id number] PCP - General Family Medicine 03/28/16
--- OUTSIDE RECORDS SUMMARY | 2024-06-09 20:22 | XMS_ITS | Encounter Summary ---
[place] [address] Care Team Providers Care Research Home Economist Name Role Phone Radhika Xiao APRN Primary Care Provider Reason for Visit * Reason Onset Date Comments Prior Authorization 04/16/[address] tablets Encounter Details Date Type Department Care Team (Late st Contact Info) Description 04/16/2023 [place] [phone] Anushka Dillon CMA Prior Authorization (Pantoprazole Sodium [...] [] Received an approval letter via fax senior sql server database developer- duplicate request, not our department, we didn't submit the PA. [] Received a denial letter via fax senior sql server database developer- duplicate request, not our department, we didn't [...] to the correct department que in fax senior sql server database developer [] Received medical records for a patient that is not a patient [] verified information received on document in external fax senior sql server database developer [] Non-DH documents [] inbasket message /waiting to hear back from the provider/provider pool documented in this encounter Plan of Treatment Not on file documented as of this encounter Visit Diagnoses Not on filedocumented in this encounter Care Teams Research Home Economist Relationship Specialty Start Date End Date Radhika Xiao APRN [address] [place] [address] PCP - General Family Medicine 03/28/16 documented as of this encounter
--- OUTSIDE RECORDS SUMMARY | 2024-06-09 20:22 | XMS_ITS | Encounter Summary ---
Author Organization [facility] [place] [address] Care Team Providers Care Machinery Repair Maintenance Supervisor Name Role Phone Radhika Xiao APRN Primary Care Provider Reason for Visit * Auth/Cert Specialty Diagnoses / Procedures Referred By Contac t Referred To Contact Diagnoses s/p bariatric surgery, history of ulcer, GERD, abdominal pain Procedures PRO UPPER GI ENDOSCOPY, DIAGNOSTIC EGD, UPPER GI ENDOSCOPY Referral ID Status Reason Start Date Expiration Date Visits Re quested Visits Authorized [id number] 1 1 Encounter Details Date Type Department Care Team (Late st Contact Info) Description 01/09/2018 9:30 AM EDT - 01/09/2018 10:00 AM EDT Surgery [place] [address] Ramón Minaya MD [facility] [place] [address] EGD WITH BIOPSY (WRVU 2.39) Social History [...] Report (01/09/2018 10:24 AM EDT) Final Diagnosis [id number] ? Location: 4T; 07; A The signing [...] Underwood MD Verified: ??01/13/2018 ?Pathologist Performed at: ??-[facility] Dept. of Pathology, [place], [place] CLINICAL INFORMATION Specimen Submitted: A - [...] ng: (T1) ??sns 01/13/2018 4:46 PM EDT [facility] GI Biopsy 01/09/2018 10:2 4 AM EDT 01/09/2018 10:24 AM EDT GI Biopsy 01/09/2018 10:2 4 AM EDT 01/09/2018 10:24 AM EDT Ramón Minaya MD PATHOLOGY/CYTOLOGY ORDERABLES Performing Organization Address City/[facility]/[place] [address] * Specimen to Pathology (01/09/2018 10:24 AM EDT) AP Specimen 01/09/2018 10:2 4 AM EDT 01/09/2018 1:06 PM EDT Narrative [facility] - 01/09/2018 1:06 PM EDT Specimen requisition ordered. ??Separate Pathology report to follow Resulting Agency Comment Spec In Lab Ramón Minaya MD PATHOLOGY/CYTOLOGY ORDERABLES Performing Organization Address [facility] [place] [address] * Specimen to Pathology (01/09/2018 10:24 AM EDT) AP Specimen 01/09/2018 10:2 4 AM EDT 01/09/2018 1:06 PM EDT Narrative [facility] - 01/09/2018 1:06 PM EDT Specimen requisition ordered. ??Separate Pathology report to follow Resulting Agency Comment Spec In Lab Ramón Minaya MD PATHOLOGY/CYTOLOGY ORDERABLES Performing Organization Address [facility] [place] [address] * UPPER GI ENDOSCOPY (01/09/2018 10:00 AM EDT) UPPER GI ENDOSCOPY [facility] Endoscopy Procedure Date: 01/09/2018 10:00 AM ? Patient Name: Konstantin Hickey ? Date of : 1980 ? Age: 37 ? Order #: [id number] ? Instrument Name: [id number] ? Procedure: ? Upper GI endoscopy Indications: [...] Procedure Code(s): ?? --- Professional --- ? 94322, Esophagogastroduoden oscopy, ? flexible, transoral; with biopsy, [...] than malignant ? neoplasm CPT copyright 2016 [employer]. All rights reserved. The codes documented in this report are preliminary and upon presentation specialist review may be revised to meet current [...] RN) documented in this encounter Care Teams Machinery Repair Maintenance Supervisor Relationship Specialty Start Date End Date Radhika Xiao APRN [address] [facility] [address] PCP - General Family Medicine 03/28/16 documented as of this encounter
--- OUTSIDE RECORDS SUMMARY | 2024-06-09 20:22 | XMS_ITS | Encounter Summary ---
Author Organization [facility] [place] [address] Care Team Providers Care Electric Cell Tender Name Role Phone Radhika Xiao GERALD Primary Care Provider Reason for Visit * Reason Comments Follow-up s/p RNY 05/16/2016, n utrition evaluation, chart review, labs, physical exam, counseling and education Encounter Details Date Type Department Care Team (Late st Contact Info) Description 07/11/2018 10:30 AM EDT Office [place] [address] Bonnie Mckeon, HEAD KNITTING MACHINE FIXER [facility] DR [place] [address] [facility] [place] [address] Impaired fasting glucose; Disorder of iron metabolism; [...] Watts, RD - 07/11/2018 10:30 AM EDT [facility] user support analyst Afsaneh [phone] and Krissy [phone] Dietitians: [phone] Surgeons/ nurse practitioners: [phone] Nurse line: [phone] Testing: Labwork: Today. Go to [facility] Area [facility], which is 1 flight below the General Surgery Clinic. I will notify you via [facility] regarding your results and recommendations A copy of your labwork and office visit today is sent to your primary manager wound care Next visit: 6 months Routine visits are done at 4.8,12, 18 and 24 months after surgery, and yearly thereafter. Please call [phone] if you do not receive an appointment [...] of every month from 1-2 PM at [facility]- no registration required Nutrition and Activity apps- Barilizbeth, My Fitness Pal, Lose It Internet resources: www.Holisol logistics wwwZoomio Holding www.bariatriceating.com www.BHR [employer]/blog [facility] facebook page: https://www.facebook.com/[facility] WEATHERFORDBariatricSurgery Books & Magazines: - Recipes for Life After Weight Loss Surgery by Nelda Wahl - Shrink Yourself by Dr Aleksandr Arriaza - Eating Well - www.Molecular Sensing - Cooking Light- www.SellABand.[employer] documented in this encounter Progress Notes * [...] children-ages <1 to 11 years. Compliance with [facility] follow up: good-considering his work schedule he has done well with follow up Attendance at [facility] post-operative graduate support group meetings: none Pre-op 03/28/16 Wt (lbs) 408# BMI 57.3 Visit #2 WT: 04/04/16: 403# HT: 5'10.75 Intro:??06/17/2015 ? Post-op ? %EBW lost Supplement compliance Labwork 06/06/2016 361.2# 50.72 19.1 -[place] 1 ??BID -Fe SO4??325 mg qd --Vitamin C 500 mg qd - ca cit w/vit D 1 chew BID -B12 SL 500 mcg qd ?08/31/2016 ??316.13 ??44.5 ??37.6 ??Good. 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 dietary/ exercise recommendations per RD-work [...] Konstantin was advised of lab results via [facility] per patient request. RECOMMENDED BARIATRIC SURGERY PROGRAM [...] If labwork is done by the primary manager wound care: pleasesend a copy to the Bariatric Surgery Program, General Surgery Clinic, [facility], Questions regarding [facility] Bariatric Surgery Program patients: please call the Bariatric Surgery Program at [phone] * Arabella Watts RD - 07/11/2018 10:30 [...] 2017. 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 [...] 07/11/18 289.1# 52% 40.3 2 years post-op [place] Body Weight (based on BMI of 25): [...] EDT) Folate 14.4 4.8 - 24.2 ng/mL [facility] Blood specimen (specimen) 07/11/2018 12:40 PM EDT 07/11/2018 12:54 PM EDT Narrative Resulting Agency Comment Spec In Lab Bonnie Mckeon HEAD KNITTING MACHINE FIXER CHEMISTRY ORDERABLES Performing Organization Address City/[facility]/ZIP Co de Phone Number [facility] [place] [address] * Vitamin B12 (07/11/2018 12:40 PM EDT) Vitamin B12 1,042 232 - 1,245 pg/mL [facility] Blood specimen (specimen) 07/11/2018 12:40 PM EDT 07/11/2018 12:54 PM EDT Narrative Resulting Agency Comment Spec In Lab Bonnie Delgadoe HEAD KNITTING MACHINE FIXER CHEMISTRY ORDERABLES Performing Organization Address City/[facility]/ZIP Co de Phone Number [facility] [place] [address] * Vitamin B1, whole blood (07/11/2018 12:40 PM EDT) Vit B1 Lvl Wb (JANUARY) 167 70 - 180 nmol/L [facility] Comment: ADDITIONAL INFORMATION This test was developed and its performance characteristics determined by [facility] in a manner consistent with CLIA requirements. This test has not been cleared or approved by the U.S. Food and Drug Administration. Test Performed by: [facility] [address] [place] [address] Blood specimen (specimen) 07/11/2018 12:40 PM EDT 07/11/2018 1:39 PM EDT Narrative Resulting Agency Comment Spec In Lab Bonnie Flowermonet [facility] SEND OUT ORDERAB LES Performing Organization Address [facility]/ZIP Co de Phone Number [facility] [place] [address] * Vitamin D, 25-Hydroxy (07/11/2018 12:40 PM EDT) Vitamin D Total 25 OH 33 30 - 100 ng/mL [facility] Comment: Deficient <10 ng/mL Insufficient 10 to 29 ng/mL Sufficient 30 to 100 ng/mL Potential Intoxication >100 ng/mL According to the US National Osteoporosis Foundation, Vitamin D concentrations >30 ng/mL are sufficient to protect bone health. ??The National Kidney Foundation has similarly stated that patients with Vitamin D concentrations <30ng/mL should be considered to be insufficient or deficient. http://JCD/nkf-guidelines http://JCD/nejm-VitD The IDS iSYS Vitamin D Immunoassay detects both 25-OH Vitamin D2 and 25-OH Vitamin D3, but only a total Vitamin D concentration is reported. Blood specimen (specimen) 07/11/2018 12:40 PM EDT 07/11/2018 1:47 PM EDT Narrative Resulting Agency Comment Spec In Lab Bonnie Mckeon GERALD CHEMISTRY ORDERABLES Performing Organization Address [facility] Co de Phone Number [facility] [place] [address] * Vitamin A (07/11/2018 12:40 PM EDT) Vitamin A (JANUARY) 47.1 32.5 - 78.0 mcg/dL [facility] Comment: ADDITIONAL INFORMATION This test was developed and its performance characteristics determined by [facility] in a manner consistent with CLIA requirements. This test has not been cleared or approved by the U.S. Food and Drug Administration. Test Performed by: [facility] [address] [place] [id number] Blood specimen (specimen) 07/11/2018 12:40 PM EDT 07/11/2018 3:11 PM EDT Narrative Resulting Agency Comment Spec In Lab Bonnie Ventura Linda [facility] SEND OUT ORDERAB LES [facility] [place] [address] * Ferritin (07/11/2018 12:40 PM EDT) [facility] Ferritin 117 30 - 400 ng/mL [facility] Comment: Pediatric reference ranges not verified at [facility], interpret with caution. Reference ranges for females greater than 50 years of age approach values for men, i.e., 30-400 ng/mL. Blood specimen (specimen) 07/11/2018 12:40 PM EDT 07/11/2018 12:54 PM EDT Narrative Resulting Agency Comment Spec In Lab Bonnie Ventura Linda HEAD KNITTING MACHINE FIXER CHEMISTRY ORDERABLES Performing Organization Address City/[facility]/ZIP Co de Phone Number [facility] [place] [address] * Iron and TIBC (07/11/2018 12:40 PM EDT) [facility] Iron 98 45 - 160 mcg/dL [facility] TIBC 298 250 - 450 mcg/dL [facility] Iron Saturation 33 20 - 50 % [facility] Blood specimen (specimen) 07/11/2018 12:40 PM EDT 07/11/2018 12:54 PM EDT Narrative Resulting Agency Comment Spec In Lab Bonnie Ventura Linda DUARTE CHEMISTRY ORDERABLES Performing Organization Address City/[facility]/ZIP Co de Phone Number [facility] [place] [place] [address] * Hemoglobin A1c (07/11/2018 12:40 PM EDT) [facility] Hemoglobin A1c 5.2 4.3 - 5.6 % [facility] Comment: Reference Range: 4.3 - [...] 1, S67-74 Estimated Average Glucose 103 mg/dL [facility] Comment: eAG equivalents for HbA1c [...] into estimated average glucose values. ??Diabetes Care 2008:31(8):9612-3173. Blood specimen (specimen) 07/11/2018 12:40 PM EDT 07/11/2018 12:53 PM EDT Narrative Resulting Agency Comment Spec In Lab Bonnie Mckeon APRN CHEMISTRY ORDERABLES [facility] [place] [address] * Prealbumin (07/11/2018 12:40 PM EDT) Prealbumin 24 20 - 40 mg/dL [facility] Comment: Prealbumin levels are generally lower in the pediatric population; adult concentrations are usually attained near puberty. Blood specimen (specimen) 07/11/2018 12:40 PM EDT 07/11/2018 12:54 PM EDT Narrative Resulting Agency Comment Spec In Lab Bonnie Mckeon APRN CHEMISTRY ORDERABLES [facility] [place] [address] * Comprehensive metabolic panel (non-fasting) (07/11/2018 12:40 PM EDT) Glucose 86 65 - 199 mg/dL [facility] Comment:Diabetes: >=200 mg/d L plus symptoms Blood Urea Nitrogen 19 10 - 20 mg/dL [facility] Creatinine 1.00 0.80 - 1.50 mg/dL [facility] Sodium 141 135 - 145 mmol/L [facility] Potassium 4.2 3.5 - 5.0 mmol/L [facility] Comment: Please note: ??Patients with WBC >100,000 may have falsely elevated Potassium levels. ??For accurate Potassium quantification in these patients send serum separator tube (gold top) for subsequent determinations. ??Contact the Clinical Chemistry Laboratory if there are any questions. Chloride 101 98 - 107 mmol/L [facility] Carbon Dioxide 28 22 - 31 mmol/L [facility] Anion Gap 12 5 - 15 mmol/L [facility] Calcium 9.7 8.5 - 10.5 mg/dL [facility] Protein, Total 7.3 6.1 - 8.0 gm/dL [facility] Albumin 4.3 3.2 - 5.2 gm/dL [facility] Aspartate Aminotransferase 27 0 - 39 unit/L [facility] Alanine Aminotransferase 24 0 - 55 unit/L [facility] Alkaline Phosphatase 79 40 - 120 unit/L [facility] Bilirubin, Total 0.4 0.2 - 1.3 mg/dL [facility] Est Glomerular Filtration Rate 96 >=60 mL/min/1. 73 m?? [facility] Comment: The eGFR was calculated using the CKD-EPI equation. As with all creatinine based estimates of kidney function, eGFR values calculated with the CKD-EPI equation are not accurate in patients with acute kidney failure, extremes of body mass or the acutely ill. http://JCD/[facility] WEATHERFORDnkf eGFR 112 >=60 mL/min/1. 73 m?? [facility] Comment: The eGFR was calculated using the CKD-EPI equation. As with all creatinine based estimates of kidney function, eGFR values calculated with the CKD-EPI equation are not accurate in patients with acute kidney failure, extremes of body mass or the acutely ill. http://JCD/[facility] WEATHERFORDnkf Blood specimen (specimen) 07/11/2018 12:40 PM EDT 07/11/2018 12:54 PM EDT Narrative Resulting Agency Comment Spec In Lab Bonnie Mckeon APRN CHEMISTRY ORDERABLES [facility] [place] [address] * (ABNORMAL) Hemogram (07/11/2018 12:40 PM EDT) White Blood Cell 6.7 4.0 - 9.5 x10(3)/mc L [facility] Red Blood Cell 4.56(L) 4.58 - 5.54 x10(6)/mc L [facility] Hemoglobin 13.9 13.7 - 16.5 gm/dL [facility] Hematocrit 42.0 40.5 - 48.5 % [facility] Mean Cell Volume 92.1 82.9 - 93.1 fL [facility] Mean Cell Hemoglobin 30.5 27.5 - 32.1 pg [facility] Mean Cell Hemoglobin Concentration 33.1 32.0 - 35.7 gm/dL [facility] Platelet 243 145 - 357 x10(3)/mc L [facility] RDW Standard Deviation 39.8 36.0 - 45.0 [facility] RDW coefficient of variation 11.8 11.4 - 13.8 % [facility] Mean Platelet Volume 10.2 7.6 - 12.9 [facility] NRBC% auto 0.0 % [facility] NRBC Absolute 0.000 0.000 - 0.000 x10(3)/mc L [facility] Blood specimen (specimen) 07/11/2018 12:40 PM EDT 07/11/2018 12:54 PM EDT Narrative Resulting Agency Comment Spec In Lab Bonnie Mckeon APRN HEMATOLOGY ORDERABLE S [facility] [place] [phone] documented in this encounter Visit Diagnoses Diagnosis Impaired fasting glucose Disorder of iron metabolism Other disorders of iron metabolism Status post bariatric surgery Bariatric surgery status Intestinal malabsorption, unspecified type Abdominal pain, epigastric Anxiety disorder, unspecified type Vitamin D deficiency Unspecified vitamin D deficiency Iron deficiency Iron deficiency anemia, unspecified documented in this encounter Care Teams Electric Cell Tender Relationship Specialty Start Date End Date Radhika Xiao APRN [address] [place] [address] PCP - General Family Medicine 03/28/16 documented as of this encounter
--- OUTSIDE RECORDS SUMMARY | 2024-06-09 20:22 | XMS_ITS | Encounter Summary ---
Author Organization [facility] Address [facility] [place] [address] Care Team Providers Care Black Belt Name Role Phone Radhika Xiao APRN Primary Care Provider Reason for Visit * Reason Comments Follow-up Encounter Details Date Type Department Care Team (Late st Contact Info) Description 04/14/2019 4:40 PM EDT Office [place] [address] Juan Thomas MD [facility] [place] [address] S/P gastric bypass 05/16/[address] Thomas [...] status documented in this encounter Care Teams Black Belt Relationship Specialty Start Date End Date Radhika Xiao, FACSIMILE MACHINE OPERATOR [address] [place] [address] PCP - General Family Medicine 03/28/16 documented as of this encounter
--- OUTSIDE RECORDS SUMMARY | 2024-06-09 20:23 | XMS_ITS | Encounter Summary ---
Author Organization [facility] [place] [address] Care Team Providers Care Corporate Communications Specialist Name Role Phone Radhika Xiao GERALD Primary Care Provider [phone] Encounter Details Date Type Department Care Team (Late st Contact Info) Description 04/30/2016 11:30 AM EDT Office Visit General [facility] [place] [place] [address] Rebeca Jiménez ADVANCED PRACTICE REGISTERED NURSE [facility] [place] [address] Iron deficiency anemia, unspecified iron deficiency anemia [...] EDT BARIATRIC SURGERY DISCHARGE INFORMATION CONTACT INFORMATION: [phone] Surgeons: Marimar Larson and Trus [phone] [place] Stitcher: [phone] (Saturday through Saturday, 8:00 AM -5:00 PM) Dietitians: [phone] Non-business hours: [phone], ask for general surgeon insulation worker apprentice FOR [employer]ERGEN[employer]ES: CALL [phone] (trouble breathing, chest [...] Follow up with primary care provider or claims specialist in 1-2 weeks. Bring meter to [...] and post operative instructions included in the [facility] Bariatric Surgery Program Education Handbook.The one hour [...] He previously attended a Introduction to the [facility] Bariatric Surgery Program seminar,a two hour meeting that provides a program overview as well as expectations. The [facility] Bariatric Surgery Program Educational seminar requirement (3 seminars with post-testing) has been met. The [facility] Educational Handbook was provided at visit #1. 2. Pre-operative programmatic evaluations have been done, as noted in previous pathway review. 3. Bariatric Surgery Program evaluations with RD and PROGRAM PROPOSALS COORDINATOR have taken place, as noted in previous [...] surgery and post-op routine care/ locations: Admissions/SDP/PACU/// [facility] ?? medications that increase the risk of [...] 1:53 PM EDT) Neutrophil % 66.3 % [facility] Neutrophil Absolute 5.00 1.50 - 6.30 x10(3)/[facility] Lymph % 20.5 % [facility] Lymphocytes Abs 1.5 1.0 - 3.6 x10(3)/[facility] Monocyte % 11.3 % [facility] Monocyte Abs 0.8 0.2 - 1.0 x10(3)/[facility] Eos % 1.3 % [facility] Eosinophils Abs 0.1 0.0 - 0.5 x10(3)/[facility] Basophil % 0.3 % [facility] Baso Absolute 0.0 0.0 - 0.2 x10(3)/[facility] Immature Gran % 0.30 % [facility] Comment: Immature granulocytes(IG's)percentage and absolute count will include metamyelocytes, myelocytes, and promyelocytes. Blood smears from CBCs yielding IG's will be scanned manually for concordance. If this scan disagrees with the automated IG or if promyelocytes are noted, a manual differential will be performed. Immature Gran Absolute 0.02 0.00 - 0.05 x10(3)/[facility] Blood specimen (specimen) 04/30/2016 1:53 PM EDT 04/30/2016 2:07 PM EDT Narrative Resulting Agency Comment Spec In Lab Juan Thomas MD HEMATOLOGY ORDERABLE S [facility] [place] [address] * (ABNORMAL) Hemogram (04/30/2016 1:53 PM EDT) White Blood Cell 7.5 4.0 - 10.0 x10(3)/ L [facility] Red Blood Cell 4.47(L) 4.63 - 6.08 x10(6)/ L [facility] Hemoglobin 12.5(L) 13.7 - 17.5 gm/dL [facility] Hematocrit 39.4(L) 40.0 - 51.0 % [facility] Mean Cell Volume 88.1 79.0 - 92.0 fL [facility] Mean Cell Hemoglobin 28.0 25.6 - 32.2 pg [facility] Mean Cell Hemoglobin Concentration 31.7(L) 32.0 - 36.5 gm/dL [facility] Platelet 265 145 - 370 x10(3)/[facility] RDW Standard Deviation 42.0 35.0 - 46.0 fL [facility] RDW coefficient of variation 13.0 10.9 - 14.4 % [facility] Mean Platelet Volume 9.9 9.0 - 12.0 fL [facility] NRBC% auto 0.0 % [facility] NRBC Absolute 0.000 0.000 - 0.012 x10(3)/[facility] Blood specimen (specimen) 04/30/2016 1:53 PM EDT 04/30/2016 2:07 PM EDT Narrative Resulting Agency Comment Spec In Lab Juan Thomas MD HEMATOLOGY ORDERABLE S [facility] [place] [address] * (ABNORMAL) Iron and TIBC (04/30/2016 1:53 PM EDT) Iron 55 45 - 160 mcg/dL [facility] TIBC 332 250 - 450 mcg/dL [facility] Iron Saturation 17(L) 20 - 50 % [facility] Blood specimen (specimen) 04/30/2016 1:53 PM EDT 04/30/2016 2:07 PM EDT Narrative Resulting Agency Comment Spec In Lab Juan Thomas MD CHEMISTRY ORDERABLES Performing Organization Address City/[facility] Co de Phone Number [facility] [place] [address] * Ferritin (04/30/2016 1:53 PM EDT) Ferritin 62 30 - 400 ng/mL [facility] Comment: Pediatric reference ranges not verified at [facility], interpret with caution. Reference ranges for females greater than 50 years of age approach values for men, i.e., 30-400 ng/mL. Blood specimen (specimen) 04/30/2016 1:53 PM EDT 04/30/2016 2:07 PM EDT Narrative Resulting Agency Comment Spec In Lab Juan Thomas MD CHEMISTRY ORDERABLES Performing Organization Address [facility] Co de Phone Number [facility] [place] [address] documented in this encounter Visit Diagnoses Diagnosis Iron deficiency anemia, unspecified iron deficiency anemia type Low hemoglobin and low hematocrit Morbid obesity with BMI of 50.0-59.9, adult Morbid obesity Encounter for pre-bariatric surgery counseling and education Reflux esophagitis documented in this encounter Care Teams Corporate Communications Specialist Relationship Specialty Start Date End Date Radhika Xiao, GERALD [address] [place] [address] PCP - General Family Medicine 03/28/16 documented as of this encounter
--- OUTSIDE RECORDS SUMMARY | 2024-06-09 20:23 | XMS_ITS | Encounter Summary ---
[place] [address] Care Team Providers Care Cowlman Name Role Phone Radhika Xiao APRN Primary Care Provider [phone] Encounter Details Date Type Department Care Team (Late st Contact Info) Description 2016 Telephone [place] [id number] Karime Hinojosa, RN Social History Tobacco Use [...] S/P sleeve gastrectomy, RNY gastric bypass on: [facility] Operative Note ?? Patient Name: Konstantin Hickey : [id number] MR#: [id number] ?? Case Date: 05/16/2016 ?? Surgeon: Surgeon(s) [...] on filedocumented in this encounter Care Teams Cowlman Relationship Specialty Start Date End Date Radhika Xiao, GERALD [address] [place] [address] PCP - General Family Medicine 03/28/16 documented as of this encounter
--- OUTSIDE RECORDS SUMMARY | 2024-06-09 20:23 | XMS_ITS | Encounter Summary ---
[place] [address] Care Team Providers Care Synthetic Filament Extruder Name Role Phone Radhika Xiao APRN Primary Care Provider Encounter Details Date Type Department Care Team (Late st Contact Info) Description 04/11/2016 Telephone [place] [id number] Evette Adler Social History Tobacco Use Types [...] on filedocumented in this encounter Care Teams Synthetic Filament Extruder Relationship Specialty Start Date End Date Radhika Xiao APRN [address] [place] [address] PCP - General Family Medicine 03/28/16 documented as of this encounter
--- OUTSIDE RECORDS SUMMARY | 2024-06-09 20:23 | XMS_ITS | Encounter Summary ---
Author Organization [facility] [place] [address] Care Team Providers Care Bench Loom Weaver Name Role Phone Radhika Xiao GERALD Primary Care Provider [phone] Reason for Visit * Reason Comments Follow-up Encounter Details Date Type Department Care Team (Late st Contact Info) Description 08/31/2016 8:15 AM EST Office Visit General Surgery at [facility] [place] [address] Rebeca Jiménez, [facility] [place] [address] S/P gastric bypass Social History Tobacco Use [...] Jiménez APRN - 08/31/2016 8:15 AM EST [facility] Admin coordinator Jenny: [phone] Dietitian: [phone] Surgeons/ nurse practitioner: [phone] Nurse line: [phone] Recommendations: 1. Encourage you to work on smoking cessation 2. Follow up with the sleep center for CPAP adjustment and mask Next visit: Routine visits are done at 4.8,12, 18 and 24 months after surgery, and yearly thereafter. Please call [phone] if you do not receive an appointment [...] of every month from 1-2 PM at [facility]- no registration required Internet resources: www.[employer] www.[employer] www.Dorm[employer] www.[employer] ([place]) [email or web address] Bariatric surgery apps- [facility] [employer]: - Recipes for [...] to date ?? Visits summary: Compliance with [facility] follow up: good Attendance at [facility] post-operative graduate support group meetings: none Pre-op 03/28/16 Wt (lbs) 408# BMI 57.3 Visit #2 WT: 04/04/16: 403# HT: 5'10.75 Intro: 06/17/2015 ?? Post-op ? %EBW lost Supplement compliance Labwork 06/06/2016 361.2# 50.72 19.1 -Mars 1 tablet BID -Ferrous Sulfate 325 mg [...] ENDOSCOPY performed by Julia Ashraf MD at [facility] ENDOSCOPY ??? Pro colonoscopy, diagnostic N/A 04/04/2016 COLONOSCOPY, DIAGNOSTIC performed by Julia Ashraf MD at [facility] ENDOSCOPY ??? Pro upper gi endoscopy, biopsy N/A 04/04/2016 UPPER GASTROINTESTINAL ENDOSCOPY,WITH BIOPSY SINGLE OR MULTIPLE performed by Julia Ashraf MD at [facility] ENDOSCOPY ??? Pro lap gastric bypass/wild-en-y N/A 05/16/2016 @LAPAROSCOPIC GASTROPLASTY, performed by Juan Thomas MD at [facility] MAIN OR ??? Pro upper gi endoscopy, diagnostic N/A 05/16/2016 ENDOSCOPY, UPPER GI, DIAGNOSTIC, WITH OR WITHOUT SPECIMENS [facility] Allergies: NKDA Medication Sig ??? CYANOCOBALAMIN/COBAMAMIDE [...] of cottage cheese AM Snack Triple Zero Cambodian Yogurt Coconut cream or Banana Cream Lunch 1/2 cup of baked Beans and carrot sticks x 3 PM Snack No snack Dinner Salad, fat free moldovan. Did not eat the mac and cheese [...] blood in stool [] chronic diarrhea/ constipation COMMERCIAL GLAZIER: [] LMP: [] control [] menorrhagia [] [...] in September Alcohol: denies Employment/social: FT at [employer]/ Objective: General: 36 y.o. year-old male looks [...] If labwork is done by the primary team primary care physician: please send a copy to the Bariatric Surgery Program, General Surgery Clinic, [facility], attention Rebeca Jiménez APRN. Questions regarding [facility] Bariatric Surgery Program patients: please call Rebeca Jiménez APRN at [phone] or [phone] [phone]. E-mail: documented in this encounter Plan of Treatment Not on file documented as of this encounter Visit Diagnoses Diagnosis S/P gastric bypass Bariatric surgery status documented in this encounter Care Teams Bench Loom Weaver Relationship Specialty Start Date End Date Radhika Xiao APRN [address] [place] [address] PCP - General Family Medicine 03/28/16 documented as of this encounter
--- OUTSIDE RECORDS SUMMARY | 2024-06-09 20:23 | XMS_ITS | Encounter Summary ---
[place] [address] Care Team Providers Care Gold And Silver Assayer Name Role Phone Radhika Xiao APRN Primary Care Provider Encounter Details Date Type Department Care Team (Latest Contact Info) Description 08/31/2016 8:00 AM EST Laboratory Appointment Lab [address] [place] [id number] Disorder of iron metabolism; Status post bariatric [...] 8:06 AM EST) Neutrophil % 62.9 % [facility] Neutrophil Absolute 3.02 1.70 - 6.10 x10(3)/[facility] LABORATORY Lymph % 20.6 % [facility] Lymphocytes Abs 1.0 0.9 - 3.2 x10(3)/[facility] LABORATORY Monocyte % 11.7 % [facility] Monocyte Abs 0.6 0.3 - 0.9 x10(3)/[facility] LABORATORY Eos % 4.4 % [facility] Eosinophils Abs 0.2 0.0 - 0.4 x10(3)/[facility] LABORATORY Basophil % 0.2 % [facility] Baso Absolute 0.0 0.0 - 0.1 x10(3)/[facility] LABORATORY Immature Gran % 0.20 % [facility] Comment: Immature granulocytes(IG's)percentage and absolute count will include metamyelocytes, myelocytes, and promyelocytes. Blood smears from CBCs yielding IG's will be scanned manually for concordance. If this scan disagrees with the automated IG or if promyelocytes are noted, a manual differential will be performed. Immature Gran Absolute 0.01 0.00 - 0.04 x10(3)/[facility] LABORATORY Blood specimen (specimen) 08/31/2016 8:06 AM EST 08/31/2016 8:12 AM EST Narrative Resulting Agency Comment Spec In Lab Juan Thomas MD HEMATOLOGY ORDERABLE S [facility] [place] [address] * (ABNORMAL) Hemogram (08/31/2016 8:06 AM EST) White Blood Cell 4.8 4.0 - 9.5 x10(3)/mc L [facility] Red Blood Cell 4.56(L) 4.58 - 5.54 x10(6)/mc L [facility] Hemoglobin 13.6(L) 13.7 - 16.5 gm/dL [facility] Hematocrit 40.7 40.5 - 48.5 % [facility] Mean Cell Volume 89.3 82.9 - 93.1 fL [facility] Mean Cell Hemoglobin 29.8 27.5 - 32.1 pg [facility] Mean Cell Hemoglobin Concentration 33.4 32.0 - 35.7 gm/dL [facility] Platelet 209 145 - 357 x10(3)/mc L [facility] RDW Standard Deviation 44.7 36.0 - 45.0 fL [facility] RDW coefficient of variation 13.6 11.4 - 13.8 % [facility] Mean Platelet Volume 10.4 7.6 - 12.9 fL [facility] NRBC% auto 0.0 % [facility] NRBC Absolute 0.000 0.000 - 0.000 x10(3)/mc L [facility] Blood specimen (specimen) 08/31/2016 8:06 AM EST 08/31/2016 8:12 AM EST Narrative Resulting Agency Comment Spec In Lab Juan Thomas MD HEMATOLOGY ORDERABLE S Performing Organization Address City/[facility]/ZIP Co de Phone Number [facility] [place] [address] * PTH (08/31/2016 8:06 AM EST) Parathyroid Hormone 55 15 - 65 pg/mL [facility] Blood specimen (specimen) 08/31/2016 8:06 AM EST 08/31/2016 8:12 AM EST Narrative Resulting Agency Comment Spec In Lab Juan Thomas MD CHEMISTRY ORDERABLES Performing Organization Address [facility] Co de Phone Number [facility] [place] [address] * Folate, serum (08/31/2016 8:06 AM EST) Folate 10.9 4.8 - 24.2 ng/mL [facility] Blood specimen (specimen) 08/31/2016 8:06 AM EST 08/31/2016 8:12 AM EST Narrative Resulting Agency Comment Spec In Lab Juan Thomas MD CHEMISTRY ORDERABLES Performing Organization Address [facility] Co de Phone Number [facility] [place] [address] * (ABNORMAL) Vitamin B12 (08/31/2016 8:06 AM EST) Vitamin B12 1,820(H) 207 - 974 pg/mL [facility] Blood specimen (specimen) 08/31/2016 8:06 AM EST 08/31/2016 8:12 AM EST Narrative Resulting Agency Comment Spec In Lab Juan Thomas MD CHEMISTRY ORDERABLES Performing Organization Address [facility] Co de Phone Number [facility] [place] [address] * (ABNORMAL) Vitamin D, 25-Hydroxy (08/31/2016 8:06 AM EST) Vitamin D Total 25 OH 27(L) 30 - 100 ng/mL [facility] Comment: Deficient <10 ng/mL Insufficient 10 to 29 ng/mL Sufficient 30 to 100 ng/mL Potential Intoxication >100 ng/mL According to the US National Osteoporosis Foundation, Vitamin D concentrations >30 ng/mL are sufficient to protect bone health. ??The National Kidney Foundation has similarly stated that patients with Vitamin D concentrations <30ng/mL should be considered to be insufficient or deficient. http://[facility] TALIHINAnatlkidneyfoundation http://[facility]ARE CENTER – TALIHINAVitD The IDS iSYS Vitamin D Immunoassay detects both 25-OH Vitamin D2 and 25-OH Vitamin D3, but only a total Vitamin D concentration is reported. Blood specimen (specimen) 08/31/2016 8:06 AM EST 08/31/2016 10:06 AM EST Narrative Resulting Agency Comment Spec In Lab Juan Thomas MD CHEMISTRY ORDERABLES Performing Organization Address [facility] Co de Phone Number [facility] [place] [address] * Ferritin (08/31/2016 8:06 AM EST) Ferritin 112 30 - 400 ng/mL [facility] Comment: Pediatric reference ranges not verified at [facility], interpret with caution. Reference ranges for females greater than 50 years of age approach values for men, i.e., 30-400 ng/mL. Blood specimen (specimen) 08/31/2016 8:06 AM EST 08/31/2016 8:12 AM EST Narrative Resulting Agency Comment Spec In Lab Juan Thomas MD CHEMISTRY ORDERABLES Performing Organization Address [facility] Co de Phone Number [facility] [place] [address] * (ABNORMAL) Iron and TIBC (08/31/2016 8:06 AM EST) Iron 29(L) 45 - 160 mcg/dL [facility] TIBC 268 250 - 450 mcg/dL [facility] Iron Saturation 11(L) 20 - 50 % [facility] Blood specimen (specimen) 08/31/2016 8:06 AM EST 08/31/2016 8:12 AM EST Narrative Resulting Agency Comment Spec In Lab Juan Thomas MD CHEMISTRY ORDERABLES Performing Organization Address [facility] Co de Phone Number [facility] [place] [address] * Hemoglobin A1c (08/31/2016 8:06 AM EST) Pathologist [facility] Hemoglobin A1c 5.4 4.3 - 5.6 % [facility] Comment: Reference Range: 4.3 - [...] Mellitus, Diabetes Care 2013; 36: Suppl. 1, K16-57 Estimated Average Glucose 108 mg/dL [facility] Comment: eAG equivalents for HbA1c percentages: HbA1c(%) ?eAG(mg/dL) 6.0 ?126 6.5 ?140 7.0 ?154 7.5 ?169 8.0 ?183 8.5 ?197 9.0 ?212 9.5 ?226 10.0 ? 240 Limitations: The eAG calculation has not been validated on women, individuals below 18 years old and above 70 years old, and individuals with hemoglobinopathies. Additional resources are available on the ADA website: http://CBRITE.Tastebuds/[facility] – TALIHINAadacalc Jonn PONCE, Yessica J, Sara R, et al. ??Translating the A1C assay into estimated average glucose values. ??Diabetes Care 2008:31(8):9535-0142. Blood specimen (specimen) 08/31/2016 8:06 AM EST 08/31/2016 8:12 AM EST Narrative Resulting Agency Comment Spec In Lab Juan Thomas MD CHEMISTRY ORDERABLES Performing Organization Address [facility] de Phone Number [facility] [place] [address] * (ABNORMAL) Prealbumin (08/31/2016 8:06 AM EST) Prealbumin 17(L) 20 - 40 mg/dL [facility] Comment: Prealbumin levels are generally lower in the pediatric population; adult concentrations are usually attained near puberty. Blood specimen (specimen) 08/31/2016 8:06 AM EST 08/31/2016 8:12 AM EST Narrative Resulting Agency Comment Spec In Lab Juan Thomas MD CHEMISTRY ORDERABLES Performing Organization Address [facility] Co de Phone Number [facility] [place] [address] * Comprehensive metabolic panel (non-fasting) (08/31/2016 8:06 AM EST) Glucose 93 65 - 199 mg/dL [facility] Comment:Diabetes: >=200 mg/d L plus symptoms Blood Urea Nitrogen 13 10 - 20 mg/dL [facility] Creatinine 0.90 0.80 - 1.50 mg/dL [facility] Comment: Please note that the pediatric reference intervals supplied above were not validated at [facility]. Results from pediatric patients should be interpreted in conjunction to the patient's age, height and muscle mass. Sodium 141 135 - 145 mmol/L [facility] Potassium 4.1 3.5 - 5.0 mmol/L [facility] Comment: Please note: ??Patients with WBC >100,000 may have falsely elevated Potassium levels. ??For accurate Potassium quantification in these patients send serum separator tube (gold top) for subsequent determinations. ??Contact the Clinical Chemistry Laboratory if there are any questions. Chloride 100 98 - 107 mmol/L [facility] Carbon Dioxide 27 22 - 31 mmol/L [facility] Anion Gap 14 5 - 15 mmol/L [facility] Calcium 9.2 8.5 - 10.5 mg/dL [facility] Protein, Total 7.0 6.1 - 8.0 gm/dL [facility] Albumin 4.3 3.2 - 5.2 gm/dL [facility] Aspartate Aminotransferase 17 0 - 39 unit/L [facility] Alanine Aminotransferase 18 0 - 55 unit/L [facility] Alkaline Phosphatase 96 40 - 120 unit/L [facility] Bilirubin, Total 0.4 0.2 - 1.3 mg/dL [facility] Bilirubin, Direct 0.1 0.0 - 0.3 mg/dL [facility] Est Glomerular Filtration Rate >60 [...] the following links into your internet browser. [email or web address] Blood specimen (specimen) 08/31/2016 8:06 AM EST 08/31/2016 8:12 AM EST Narrative Resulting Agency Comment Spec In Lab Juan Thomas MD CHEMISTRY ORDERABLES [place] [id number] documented in this encounter Visit Diagnoses Diagnosis Disorder of iron metabolism Other disorders of iron metabolism Status post bariatric surgery Bariatric surgery status Prediabetes Other abnormal glucose Obstructive sleep apnea Obstructive sleep apnea (adult) (pediatric) Encounter for vitamin deficiency screening Screening for other and unspecified endocrine, nutritional, metabolic, and immunity disorders documented in this encounter Care Teams Gold And Silver Assayer Relationship Specialty Start Date End Date Radhika Xiao, GERALD [address] [place] [address] PCP - General Family Medicine 03/28/16 documented as of this encounter
--- OUTSIDE RECORDS SUMMARY | 2024-06-09 20:23 | XMS_ITS | Encounter Summary ---
Author Organization [facility] [place] [address] Care Team Providers Care Cylinder Handler Name Role Phone Radhika Xiao GERALD Primary Care Provider Reason for Visit * Reason Comments Follow-up S/P gastric bypass Encounter Details Date Type Department Care Team (Late st Contact Info) Description 05/22/2017 9:30 AM EDT Office [place] [address] Dorys Rivers, OPTICAL ENGINEERING MANAGER [facility] [address] Arabella Watts, RD [facility] [place] [address] Disorder of iron metabolism; Status post bariatric [...] Watts, RD - 05/22/2017 9:30 AM EDT [facility] Admin coordinator Jenny: [phone] Dietitian: [phone] Surgeons/ nurse practitioner: [phone] Nurse line: [phone] Testing: Labwork: Today. Go to [facility] [address], which is 1 flight below the General Surgery Clinic. Please note that you will always receive a letter with lab results and recommendations. Please readthis letter carefully and follow recommendations. The letter also contains information regarding your next lab draw. A copy of your labwork and office visit today is sent to your primary laboratory animal caretaker Next visit: November Routine visits are done at 4.8,12, 18 and 24 months after surgery, and yearly thereafter. Please call [phone] if you do not receive an appointment [...] D 400 units twice daily - or 6638-1414 mg via dietary sources. Consider having 1 [...] of every month from 1-2 PM at [facility]- no registration required Nutrition and Activity apps- Baritastic, My Fitness Pal, Lose It, My Plate Internet resources: www.[employer] www.[employer] www.Cians [employer].Equipois www.ThermaSource.Equipois/blog [facility] facebook page: [email or web address].[email or web address]ANDBariatricSurgery Books & Magazines: - Recipes for Life [...] with BSP follow up: good Attendance at [facility] post-operative graduate support group meetings: none Pre-op 03/28/16 Wt (lbs) 408# BMI 57.3 Visit #2 WT: 04/04/16: 403# HT: 5'10.75 Intro: 06/17/2015 ? Post-op ? %EBW lost Supplement compliance Labwork 06/06/2016 361.2# 50.72 19.1 -Bynum 1 BID -Fe SO4 325 mg qd --Vitamin C 500 mg qd - ca cit w/vit D 1 chew BID -B12 SL 500 mcg qd ?08/31/2016 ??316.13 ??44.5 ??37.6 ??Good. -MVI 1 tab qd -BA Ca Cit 1 chew BID -B12 SL 500 mcg qd -Ferrous Sulfate 325 mg qd w/vit C 500 mg qd 08/31: Hg 13.6 Hct 40.7 [id number] iron 29 sat 11% B12 1820 Nl B1 fol CMP PTH 55 D 27 prealbumin 17 A1c 5.4 12/26/16 285 40.03 53 -MVI 1 tab qd -BA Ca Citrate 1 chew BID -B12 SL 500 mcg qd -Fe [id number] mg w/vit C 500 mg BID 12/28: [...] surgery, was intolerant had repeat PSG at [facility] in April. PSG 03/29/15 at wt 386#, [...] IgA 142; TTg IgA Ab <1.2 --medical terminologist blood donor ??? Psychosocial issues: stable, wellbutrin [...] DIAGNOSTIC performed by Julia Ashraf MD at [facility] ENDOSCOPY at [facility] MAIN OR ??? PRO UPPER GI ENDOSCOPY, BIOPSY N/A 04/04/2016 UPPER GASTROINTESTINAL ENDOSCOPY,WITH BIOPSY SINGLE OR MULTIPLE performed by Julia Ashraf MD at [facility] ENDOSCOPY ??? 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 Questions regarding [facility] Bariatric Surgery Program patients: please call Abiodun Rivers APRN at [phone] or [phone] [phone]. 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 Lives with [...] 05/22/17 269.5# 60% 37.8 1 year post-op Bessie Body Weight (based on BMI of 25): 174# Excess Weight: 218# 50-70% Excess Weight Loss: 230-285# MEDICATIONS: Vitamin/Mineral Supplements (reported by patient): Supplement Type Brand/Form Dosage/Amount Frequency Comments Multivitamin Men's MVM 1 daily Calcium Calculates dietary sources and feels he's meeting 0144-7181 mg daily Vitamin B12 pill 500 mcg [...] Breakfast Cottage cheese AM Snack Pack of crackTBS Lunch Yesterday was chicken fajita - whatever is being served at work (retirement) PM Snack Pack of crackers Dinner Protein [...] 25 OH 33 30 - 100 ng/mL [facility] Comment: Deficient <10 ng/mL Insufficient 10 to 29 ng/mL Sufficient 30 to 100 ng/mL Potential Intoxication >100 ng/mL According to the US National Osteoporosis Foundation, Vitamin D concentrations >30 ng/mL are sufficient to protect bone health. ??The National Kidney Foundation has similarly stated that patients with Vitamin D concentrations <30ng/mL should be considered to be insufficient or deficient. http://'Rock' Your Paper.Equipois/nkf-guidelines http://'Rock' Your Paper.Equipois/nejm-VitD The IDS iSYS Vitamin D Immunoassay detects both 25-OH Vitamin D2 and 25-OH Vitamin D3, but only a total Vitamin D concentration is reported. Blood specimen (specimen) 05/22/2017 10:53 AM EDT 05/22/2017 1:29 PM EDT Narrative Resulting Agency Comment Spec In Lab Dorys Rivers OPTICAL ENGINEERING MANAGER CHEMISTRY ORDERAB LES [facility] [address] * Iron and TIBC (05/22/2017 10:53 AM EDT) Iron 105 45 - 160 mcg/dL [facility] TIBC 283 250 - 450 mcg/dL [facility] Iron Saturation 37 20 - 50 % [facility] Blood specimen (specimen) 05/22/2017 10:53 AM EDT 05/22/2017 10:59 AM EDT Narrative Resulting Agency Comment Spec In Lab Dorys Rivers OPTICAL ENGINEERING MANAGER CHEMISTRY ORDERAB LES Performing Organization Address City/[facility]/ZIP Co de Phone Number [facility] [address] * Ferritin (05/22/2017 10:53 AM EDT) [facility] Ferritin 161 30 - 400 ng/mL [facility] Comment: Pediatric reference ranges not verified at [facility], interpret with caution. Reference ranges for females greater than 50 years of age approach values for men, i.e., 30-400 ng/mL. Blood specimen (specimen) 05/22/2017 10:53 AM EDT 05/22/2017 10:59 AM EDT Narrative Resulting Agency Comment Spec In Lab Doryslaurence Rivers OPTICAL ENGINEERING MANAGER CHEMISTRY ORDERAB LES Performing Organization Address [facility] Co de Phone Number [facility] [place] [address] * Prealbumin (05/22/2017 10:53 AM EDT) [facility] Prealbumin 22 20 - 40 mg/dL [facility] Comment: Prealbumin levels are generally lower in the pediatric population; adult concentrations are usually attained near puberty. Blood specimen (specimen) 05/22/2017 10:53 AM EDT 05/22/2017 10:59 AM EDT Narrative Resulting Agency Comment Spec In Lab Doryslaurence Rivers OPTICAL ENGINEERING MANAGER CHEMISTRY ORDERAB LES Performing Organization Address [facility]/ZIP Co de Phone Number [facility] [place] [address] * Hepatic Function Panel (05/22/2017 10:53 AM EDT) [facility] Protein, Total 7.0 6.1 - 8.0 gm/dL [facility] Albumin 4.3 3.2 - 5.2 gm/dL [facility] Aspartate Aminotransferase 20 0 - 39 unit/L [facility] Alanine Aminotransferase 23 0 - 55 unit/L [facility] Alkaline Phosphatase 83 40 - 120 unit/L [facility] Bilirubin, Total 0.3 0.2 - 1.3 mg/dL [facility] Bilirubin, Direct 0.1 0.0 - 0.3 mg/dL [facility] Blood specimen (specimen) 05/22/2017 10:53 AM EDT 05/22/2017 10:59 AM EDT Narrative Resulting Agency Comment Spec In Lab Dorys Rivers OPTICAL ENGINEERING MANAGER CHEMISTRY ORDERAB LES Performing Organization Address City/State/[facility] Co de Phone Number [facility] [address] * Hemogram (05/22/2017 10:53 AM EDT) White Blood Cell 9.4 4.0 - 9.5 x10(3)/[facility] LAB[facility] Red Blood Cell 4.81 4.58 - 5.54 x10(6)/[facility] Hemoglobin 15.2 13.7 - 16.5 gm/dL [facility] Hematocrit 43.8 40.5 - 48.5 % [facility] Mean Cell Volume 91.1 82.9 - 93.1 [facility]ORY Mean Cell Hemoglobin 31.6 27.5 - 32.1 pg [facility] Mean Cell Hemoglobin Concentration 34.7 32.0 - 35.7 gm/dL [facility] Platelet 248 145 - 357 x10(3)/[facility]ATORY RDW Standard Deviation 39.7 36.0 - 45.0 [facility] RDW coefficient of variation 11.8 11.4 - 13.8 % [facility] Mean Platelet Volume 10.7 7.6 - 12.9 [facility] NRBC% auto 0.0 % [facility] NRBC Absolute 0.000 0.000 - 0.000 x10(3)/mcL [facility] Blood specimen (specimen) 05/22/2017 10:53 AM EDT 05/22/2017 10:59 AM EDT Narrative Resulting Agency Comment Spec In Lab Dorys Rivers OPTICAL ENGINEERING MANAGER HEMATOLOGY ORDERA BLES [facility] [address] documented in this encounter Visit Diagnoses Diagnosis Disorder of iron metabolism Other disorders of iron metabolism Status post bariatric surgery Bariatric surgery status Intestinal malabsorption, unspecified type documented in this encounter Care Teams Cylinder Handler Relationship Specialty Start Date End Date Radhika Xiao APRN [address] [place] [address] PCP - General Family Medicine 03/28/16 documented as of this encounter
--- OUTSIDE RECORDS SUMMARY | 2024-06-09 20:23 | XMS_ITS | Encounter Summary ---
[place] [address] Care Team Providers Care Business Programmer Name Role Phone Radhika Xiao APRN Primary Care Provider Encounter Details Date Type Department Care Team (Latest Contact Info) Description 12/28/2016 11:40 AM EDT Laboratory Appointment Lab [address] [id number] Status post bariatric surgery; Intestinal malabsorption, unspecified [...] 12:01 PM EDT) Neutrophil % 85.2 % [facility] Neutrophil Absolute 7.14(H) 1.70 - 6.10 x10(3)/mc L [facility] Lymph % 11.2 % [facility] Lymphocytes Abs 0.9 0.9 - 3.2 x10(3)/ L [facility] Monocyte % 2.9 % [facility] Monocyte Abs 0.2(L) 0.3 - 0.9 x10(3)/ L [facility] Eos % 0.1 % [facility] Eosinophils Abs 0.0 0.0 - 0.4 x10(3)/[facility]OR[facility] Basophil % 0.2 % [facility] Baso Absolute 0.0 0.0 - 0.1 x10(3)/[facility] LABORATORY Immature Gran % 0.40 % [facility] Comment: Immature granulocytes(IG's)percentage and absolute count will include metamyelocytes, myelocytes, and promyelocytes. Blood smears from CBCs yielding IG's will be scanned manually for concordance. If this scan disagrees with the automated IG or if promyelocytes are noted, a manual differential will be performed. Immature Gran Absolute 0.03 0.00 - 0.04 x10(3)/[facility] LABORATORY Blood specimen (specimen) 12/28/2016 12:01 PM EDT 12/28/2016 12:11 PM EDT Narrative Resulting Agency Comment Spec In Lab Juan Thomas MD HEMATOLOGY ORDERABLE S [facility] [place] [address] * Hemogram (12/28/2016 12:01 PM EDT) White Blood Cell 8.4 4.0 - 9.5 x10(3)/[facility] LABORATORY Red Blood Cell 4.76 4.58 - 5.54 x10(6)/[facility] LABORATORY Hemoglobin 14.7 13.7 - 16.5 gm/dL [facility] Hematocrit 43.6 40.5 - 48.5 % [facility] Mean Cell Volume 91.6 82.9 - 93.1 fL [facility] Mean Cell Hemoglobin 30.9 27.5 - 32.1 pg [facility] Mean Cell Hemoglobin Concentration 33.7 32.0 - 35.7 gm/dL [facility] Platelet 240 145 - 357 x10(3)/[facility] LABORATORY RDW Standard Deviation 40.7 36.0 - 45.0 fL [facility] RDW coefficient of variation 12.0 11.4 - 13.8 % [facility] Mean Platelet Volume 10.2 7.6 - 12.9 fL [facility] NRBC% auto 0.0 % [facility] NRBC Absolute 0.000 0.000 - 0.000 x10(3)/[facility] LABORATORY Blood specimen (specimen) 12/28/2016 12:01 PM EDT 12/28/2016 12:11 PM EDT Narrative Resulting Agency Comment Spec In Lab Juan Thomas MD HEMATOLOGY ORDERABLE S [facility] [place] [address] * (ABNORMAL) Vitamin B1, whole blood (12/28/2016 12:01 PM EDT) Vit B1 Lvl Wb (JANUARY) 194(H) 70 - 180 nmol/L [facility] Comment: ADDITIONAL INFORMATION This test was developed and its performance characteristics determined by [facility] in a manner consistent with CLIA requirements. This test has not been cleared or approved by the U.S. Food and Drug Administration. Test Performed by: [facility] - [address] [address] Blood specimen (specimen) 12/28/2016 12:01 PM EDT 12/28/2016 2:00 PM EDT Narrative Resulting Agency Comment Spec In Lab Juan Thomas MD LAB SEND OUT ORDERAB LES [facility] [place] [address] * Comprehensive metabolic panel (non-fasting) (12/28/2016 12:01 PM EDT) Glucose 109 65 - 199 mg/dL [facility] Comment:Diabetes: >=200 mg/d L plus symptoms Blood Urea Nitrogen 16 10 - 20 mg/dL [facility] Creatinine 0.87 0.80 - 1.50 mg/dL [facility] Comment: Please note that the pediatric reference intervals supplied above were not validated at [facility]. Results from pediatric patients should be interpreted in conjunction to the patient's age, height and muscle mass. Sodium 140 135 - 145 mmol/L [facility] Potassium 4.7 3.5 - 5.0 mmol/L [facility] Comment: Please note: ??Patients with WBC >100,000 may have falsely elevated Potassium levels. ??For accurate Potassium quantification in these patients send serum separator tube (gold top) for subsequent determinations. ??Contact the Clinical Chemistry Laboratory if there are any questions. Chloride 101 98 - 107 mmol/L [facility] Carbon Dioxide 27 22 - 31 mmol/L [facility] Anion Gap 12 5 - 15 mmol/L [facility] Calcium 9.8 8.5 - 10.5 mg/dL [facility] Protein, Total 7.5 6.1 - 8.0 gm/dL [facility] Albumin 4.7 3.2 - 5.2 gm/dL [facility] Aspartate Aminotransferase 15 0 - 39 unit/L [facility] Alanine Aminotransferase 20 0 - 55 unit/L [facility] Alkaline Phosphatase 98 40 - 120 unit/L [facility] Bilirubin, Total 0.4 0.2 - 1.3 mg/dL [facility] Bilirubin, Direct 0.1 0.0 - 0.3 mg/dL [facility] Est Glomerular Filtration Rate >60 >=[address] [facility] Comment: This estimated GFR (eGFR) [...] the following links into your internet browser. [email or web address] Blood specimen (specimen) 12/28/2016 12:01 PM EDT 12/28/2016 12:11 PM EDT Narrative Resulting Agency Comment Spec In Lab Juan Thomas MD CHEMISTRY ORDERABLES Performing Organization Address [facility]/ZIP Co de Phone Number [facility] [place] [address] * Prealbumin (12/28/2016 12:01 PM EDT) Prealbumin 20 20 - 40 mg/dL [facility] Comment: Prealbumin levels are generally lower in the pediatric population; adult concentrations are usually attained near puberty. Blood specimen (specimen) 12/28/2016 12:01 PM EDT 12/28/2016 12:11 PM EDT Narrative Resulting Agency Comment Spec In Lab Juan Thomas MD CHEMISTRY ORDERABLES Performing Organization Address City/[facility]/ZIP Co de Phone Number [facility] [place] [address] * Iron and TIBC (12/28/2016 12:01 PM EDT) Iron 84 45 - 160 mcg/dL [facility] TIBC 300 250 - 450 mcg/dL [facility] Iron Saturation 28 20 - 50 % [facility] Blood specimen (specimen) 12/28/2016 12:01 PM EDT 12/28/2016 12:11 PM EDT Narrative Resulting Agency Comment Spec In Lab Juan Thomas MD CHEMISTRY ORDERABLES [facility] [place] [address] * Ferritin (12/28/2016 12:01 PM EDT) Ferritin 146 30 - 400 ng/mL [facility] Comment: Pediatric reference ranges not verified at [facility], interpret with caution. Reference ranges for females greater than 50 years of age approach values for men, i.e., 30-400 ng/mL. Blood specimen (specimen) 12/28/2016 12:01 PM EDT 12/28/2016 12:11 PM EDT Narrative Resulting Agency Comment Spec In Lab Juan Thomas MD CHEMISTRY ORDERABLES Performing Organization Address City/[facility]/ZIP Co de Phone Number [facility] [place] [address] * Folate, serum (12/28/2016 12:01 PM EDT) Folate 16.5 4.8 - 24.2 ng/mL [facility] Blood specimen (specimen) 12/28/2016 12:01 PM EDT 12/28/2016 12:11 PM EDT Narrative Resulting Agency Comment Spec In Lab Juan Thomas MD CHEMISTRY ORDERABLES [facility] [place] [address] * (ABNORMAL) Vitamin B12 (12/28/2016 12:01 PM EDT) Pathologist [facility] Vitamin B12 >2,000(H) 207 - 974 pg/mL [facility] Blood specimen (specimen) 12/28/2016 12:01 PM EDT 12/28/2016 12:11 PM EDT Narrative Resulting Agency Comment Spec In Lab Juan Thomas MD CHEMISTRY ORDERABLES Performing Organization Address City/[facility]/ZIP Co de Phone Number [facility] [place] [address] * PTH (12/28/2016 12:01 PM EDT) Parathyroid Hormone 39 15 - 65 pg/mL [facility] Blood specimen (specimen) 12/28/2016 12:01 PM EDT 12/28/2016 12:11 PM EDT Narrative Resulting Agency Comment Spec In Lab Juan Thomas MD CHEMISTRY ORDERABLES Performing Organization Address [facility] [place] [place] [address] * Vitamin D, 25-Hydroxy (12/28/2016 12:01 PM EDT) Vitamin D Total 25 OH 42 30 - 100 ng/mL [facility] Comment: Deficient <10 ng/mL Insufficient 10 to 29 ng/mL Sufficient 30 to 100 ng/mL Potential Intoxication >100 ng/mL According to the [place] National Osteoporosis Foundation, Vitamin D concentrations >30 ng/mL are sufficient to protect bone health. ??The National Kidney Foundation has similarly stated that patients with Vitamin D concentrations <30ng/mL should be considered to be insufficient or deficient. http://Vanu Coverage.[facility]/DHMCnatlkidneyfoundation http://[email or web address]/DHMCVitD The IDS iSYS Vitamin D Immunoassay detects both 25-OH Vitamin D2 and 25-OH Vitamin D3, but only a total Vitamin D concentration is reported. Blood specimen (specimen) 12/28/2016 12:01 PM EDT 12/28/2016 1:52 PM EDT Narrative Resulting Agency Comment Spec In Lab Juan Thomas MD CHEMISTRY ORDERABLES Performing Organization Address [facility] Co de Phone Number [facility] [place] [address] documented in this encounter Visit Diagnoses Diagnosis Status post bariatric surgery Bariatric surgery status Intestinal malabsorption, unspecified type Vitamin D deficiency Unspecified vitamin D deficiency Iron deficiency anemia, unspecified iron deficiency anemia type documented in this encounter Care Teams Business Programmer Relationship Specialty Start Date End Date Radhika Xiao APRN [address] [place] [address] PCP - General Family Medicine 03/28/16 documented as of this encounter
--- OUTSIDE RECORDS SUMMARY | 2024-06-09 20:23 | XMS_ITS | Encounter Summary ---
Author Organization [facility] [place] [address] Care Team Providers Care Commodity Buyer Name Role Phone Radhika Xiao APRN Primary Care Provider Reason for Visit * Reason Comments Medication Refill Encounter Details Date Type Department Care Team (Late st Contact Info) Description 10/06/2017 Refill [place] [address] Dorys Rivers APRN [facility] [place] [address] Social History Tobacco Use Types Packs/Day Years [...] on filedocumented in this encounter Care Teams Commodity Buyer Relationship Specialty Start Date End Date Radhika Xiao APRN [address] [place] [address] PCP - General Family Medicine 03/28/16 documented as of this encounter
--- OUTSIDE RECORDS SUMMARY | 2024-06-09 20:23 | XMS_ITS | Encounter Summary ---
Author Organization [facility] [place] [address] Care Team Providers Care Sales Correspondent Name Role Phone Radhika Xiao GERALD Primary Care Provider Encounter Details Date Type Department Care Team (Late st Contact Info) Description 06/06/2016 9:00 AM EDT Office Visit General Surgery at [facility] [place] [address] Rebeca Jiménez, OPERATIONS TEAM LEADER [facility] [place] [address] Arabella Watts, RD [facility] [address] S/P gastric bypass; Prediabetes; Encounter for vitamin [...] First Post-operative Follow up visit Contact information: [facility] Admin coordinator Jenny: [phone] Dietitian: [phone] Surgeons/ nurse practitioner: [phone] Nurse line: [phone] Your excess body weight lost: 19.1% Next [...] cups) - Limit intake of caffeine. Note: StarmiriamSmadexcontreras Double shot has 20 grams sugar. Limit [...] of every month from 1-2 PM at [facility] Internet resources: Www.[employer] www.FloTime Www.Nuxeo.UI Robot Www.Choosemyplate.gov Www.RecoversnessPal.com [facility] facebook page: https://www.facebook.[email or web address]/[email or web address]BariatricSurgery Bariatric surgery apps- [facility] Post-freddy Books: - Recipes for Life after [...] none Late - Visits summary: Compliance with [facility] follow up: good Attendance at [facility] post-operative graduate support group meetings: none Pre-op 03/28/16 Wt (lbs) 408# BMI 57.3 Visit #2 WT: 04/04/16: 403# HT: 5'10.75 Intro: 06/17/2015 Post-op %EBW lost Supplement compliance Labwork 06/06/2016 361.2# 50.72 19.1 -[place] 1 tablet BID -Ferrous Sulfate 325 mg [...] ENDOSCOPY performed by Julia Ashraf MD at [facility] ENDOSCOPY ??? Pro colonoscopy, diagnostic N/A 04/04/2016 COLONOSCOPY, DIAGNOSTIC performed by Julia Ashraf MD at [facility] ENDOSCOPY ??? Pro upper gi endoscopy, biopsy N/A 04/04/2016 UPPER GASTROINTESTINAL ENDOSCOPY,WITH BIOPSY SINGLE OR MULTIPLE performed by Julia Ashraf MD at [facility] ENDOSCOPY ??? Pro lap gastric bypass/wild-en-y N/A 05/16/2016 @LAPAROSCOPIC GASTROPLASTY, performed by Juan Thomas MD at [facility] MAIN OR ??? Pro upper gi endoscopy, diagnostic N/A 05/16/2016 ENDOSCOPY, UPPER GI, DIAGNOSTIC, WITH OR WITHOUT SPECIMENS [facility] Allergies: NKDA Medications: reviewed in edh [...] to use his CPAP. He reports contacting [employer] regarding hismask since it no longer fits well and new mask ordered. He is also scheduled for follow up with [facility] in the next several months. Cardiac: [] [...] stool [] chronic diarrhea [ ] constipation MANAGER CUSTOMER SERVICE: [ ] LMP: [ ] control [ [...] If labwork is done by the primary child care: please send a copy to the Bariatric Surgery Program, General Surgery Clinic, [facility], attention GERALD Cloud. Questions regarding [facility] Bariatric Surgery Program patients: please call Madhavi Jiménez APRN or Abiodun Rivers APRN at [phone]. E-mails: [email or web address] or .[email or web address] * Arabella Watts, RD - 06/06/2016 9:00 [...] 50.7 1 month post-op 4 months post-op [place] Body Weight (based on BMI of 25): [...] corned beef hash or cottage cheese or amharic yogurt AM Snack Lunch starkist tuna pack PM Snack Dinner Shrimp (10) , little bit of CHO HS Snack Occ. SF jello or SF pudding Protein/ estimated grams/day: 60 g/day Calories/ estimated/day: 400-500/day Hydrating fluids/ oz/ day: 16.9 FL 3 per day herrmann, V8, CL and milk Soda: None. ETOH: None. Caffeine: [employer] 20 g protein drink - Sunshine double shot (had it for the first [...] the dietary guidelines. PLAN: ?? Evaluation by OPERATIONS TEAM LEADER today. ?? Provided support/encouragement and reinforced importance of meeting nutritional goals. Rec. Limit intake of caffeine and to limit calories from RTD protein drinks to 200 calories per 8 oz. ?? Reviewed nutrition and vitamin and mineral supplement recommendations - rec. MVM twice daily [id number] mg calcium twice daily. ?? Written recommendations provided. Patient agreed with these and verbalized adequate understanding ?? follow up at 4 months post surgery with labwork. documented in this encounter Plan of Treatment Not on file documented as of this encounter Results * PTH (08/31/2016 8:06 AM EST) Parathyroid Hormone 55 15 - 65 pg/mL [facility] Blood specimen (specimen) 08/31/2016 8:06 AM EST 08/31/2016 8:12 AM EST Narrative Resulting Agency Comment Spec In Lab Juan Thomas MD CHEMISTRY ORDERABLES [facility] [place] [address] * Folate, serum (08/31/2016 8:06 AM EST) Folate 10.9 4.8 - 24.2 ng/mL [facility] Blood specimen (specimen) 08/31/2016 8:06 AM EST 08/31/2016 8:12 AM EST Narrative Resulting Agency Comment Spec In Lab Juan Thomas MD CHEMISTRY ORDERABLES Performing Organization Address City/[facility]/ZIP Co de Phone Number [facility] [place] [address] * (ABNORMAL) Vitamin B12 (08/31/2016 8:06 AM EST) Vitamin B12 1,820(H) 207 - 974 pg/mL [facility] Blood specimen (specimen) 08/31/2016 8:06 AM EST 08/31/2016 8:12 AM EST Narrative Resulting Agency Comment Spec In Lab Juan Thomas MD CHEMISTRY ORDERABLES Performing Organization Address City/[facility] Co de Phone Number [facility] [place] [address] * (ABNORMAL) Vitamin D, 25-Hydroxy (08/31/2016 8:06 AM EST) Vitamin D Total 25 OH 27(L) 30 - 100 ng/mL [facility] [...] be considered to be insufficient or deficient. [email or web address]/[email or web address]/[email or web address] The IDS iSYS Vitamin D Immunoassay detects both 25-OH Vitamin D2 and 25-OH Vitamin D3, but only a total Vitamin D concentration is reported. Blood specimen (specimen) 08/31/2016 8:06 AM EST 08/31/2016 10:06 AM EST Narrative Resulting Agency Comment Spec In Lab Juan Thomas MD CHEMISTRY ORDERABLES Performing Organization Address [facility] Co de Phone Number [facility] [place] [address] * Ferritin (08/31/2016 8:06 AM EST) Ferritin 112 30 - 400 ng/mL [facility] Comment: Pediatric reference ranges not verified at [facility], interpret with caution. Reference ranges for females greater than 50 years of age approach values for men, i.e., 30-400 ng/mL. Blood specimen (specimen) 08/31/2016 8:06 AM EST 08/31/2016 8:12 AM EST Narrative Resulting Agency Comment Spec In Lab Juan Thomas MD CHEMISTRY ORDERABLES Performing Organization Address [facility] Co de Phone Number [facility] [place] [address] * (ABNORMAL) Iron and TIBC (08/31/2016 8:06 AM EST) [facility] Iron 29(L) 45 - 160 mcg/dL [facility] TIBC 268 250 - 450 mcg/dL [facility] Iron Saturation 11(L) 20 - 50 % [facility] Blood specimen (specimen) 08/31/2016 8:06 AM EST 08/31/2016 8:12 AM EST Narrative Resulting Agency Comment Spec In Lab Juan Thomas MD CHEMISTRY ORDERABLES Performing Organization Address City/[facility] Co de Phone Number [facility] [place] [address] * Hemoglobin A1c (08/31/2016 8:06 AM EST) [facility] Signature Hemoglobin A1c 5.4 4.3 - 5.6 % [facility] Comment: Reference Range: 4.3 - [...] Mellitus, Diabetes Care 2013; 36: Suppl. 1, G26-47 Estimated Average Glucose 108 mg/dL [facility] Comment: eAG equivalents for HbA1c percentages: HbA1c(%) ?eAG(mg/dL) 6.0 ?126 6.5 ?140 7.0 ?154 7.5 ?169 8.0 ?183 8.5 ?197 9.0 ?212 9.5 ?226 10.0 ? 240 Limitations: The eAG calculation has not been validated on women, individuals below 18 years old and above 70 years old, and individuals with hemoglobinopathies. Additional resources are available on the ADA website: http://MerryMarry.com/DHMCadacalc Jonn PONCE, Yessica J, Sara R, et al. ??Translating the A1C assay into estimated average glucose values. ??Diabetes Care 2008:31(8):2655-2989. Blood specimen (specimen) 08/31/2016 8:06 AM EST 08/31/2016 8:12 AM EST Narrative Resulting Agency Comment Spec In Lab Juan Thomas MD CHEMISTRY ORDERABLES [facility] [place] [address] * (ABNORMAL) Prealbumin (08/31/2016 8:06 AM EST) Prealbumin 17(L) 20 - 40 mg/dL [facility] Comment: Prealbumin levels are generally lower in the pediatric population; adult concentrations are usually attained near puberty. Blood specimen (specimen) 08/31/2016 8:06 AM EST 08/31/2016 8:12 AM EST Narrative Resulting Agency Comment Spec In Lab Juan Thomas MD CHEMISTRY ORDERABLES [facility] [place] [address] * Comprehensive metabolic panel (non-fasting) (08/31/2016 8:06 AM EST) Glucose 93 65 - 199 mg/dL [facility] Comment:Diabetes: >=200 mg/d L plus symptoms Blood Urea Nitrogen 13 10 - 20 mg/dL [facility] Creatinine 0.90 0.80 - 1.50 mg/dL [facility] Comment: Please note that the pediatric reference intervals supplied above were not validated at [facility]. Results from pediatric patients should be interpreted in conjunction to the patient's age, height and muscle mass. Sodium 141 135 - 145 mmol/L [facility] Potassium 4.1 3.5 - 5.0 mmol/L [facility] Comment: Please note: ??Patients with WBC >100,000 may have falsely elevated Potassium levels. ??For accurate Potassium quantification in these patients send serum separator tube (gold top) for subsequent determinations. ??Contact the Clinical Chemistry Laboratory if there are any questions. Chloride 100 98 - 107 mmol/L [facility] Carbon Dioxide 27 22 - 31 mmol/L [facility] Anion Gap 14 5 - 15 mmol/L [facility] Calcium 9.2 8.5 - 10.5 mg/dL [facility] Protein, Total 7.0 6.1 - 8.0 gm/dL [facility] Albumin 4.3 3.2 - 5.2 gm/dL [facility] Aspartate Aminotransferase 17 0 - 39 unit/L [facility] Alanine Aminotransferase 18 0 - 55 unit/L [facility] Alkaline Phosphatase 96 40 - 120 unit/L [facility] Bilirubin, Total 0.4 0.2 - 1.3 mg/dL [facility] Bilirubin, Direct 0.1 0.0 - 0.3 mg/dL [facility] Est Glomerular Filtration Rate >60 >=60 [facility] Comment: This estimated GFR (eGFR) [...] the following links into your internet browser. [email or web address] Blood specimen (specimen) 08/31/2016 8:06 AM EST 08/31/2016 8:12 AM EST Narrative Resulting Agency Comment Spec In Lab Juan Thomas MD CHEMISTRY ORDERABLES Performing Organization Address City/State/[facility] Co de Phone Number [facility] [place] [phone] documented in this encounter Visit Diagnoses Diagnosis S/P gastric bypass Bariatric surgery status Prediabetes Other abnormal glucose Encounter for vitamin deficiency screening Screening for other and unspecified endocrine, nutritional, metabolic, and immunity disorders Disorder of iron metabolism Other disorders of iron metabolism Status post bariatric surgery Bariatric surgery status Obstructive sleep apnea Obstructive sleep apnea (adult) (pediatric) documented in this encounter Care Teams Sales Correspondent Relationship Specialty Start Date End Date Radhika Xiao, GERALD [address] [place] [address] PCP - General Family Medicine 03/28/16 documented as of this encounter
--- OUTSIDE RECORDS SUMMARY | 2024-06-09 20:23 | XMS_ITS | Encounter Summary ---
Author Organization [facility] Address [facility] [place] [address] Care Team Providers Care Project Manager Name Role Phone Radhika Xiao APRN Primary Care Provider Reason for Visit * Reason Comments Establish Care Encounter Details Date Type Department Care Team (Late st Contact Info) Description 04/10/2016 10:30 AM EDT Office [place] [address] Juan Thomas MD [facility] [place] [address] Morbid obesity with BMI of 50.0-59.9, adult [...] performed by Julia Ashraf MD at [facility] ENDOSCOPY ??? Pro colonoscopy, diagnostic N/A 04/04/2016 COLONOSCOPY, DIAGNOSTIC performed by Julia Ashraf MD at [facility] ENDOSCOPY ??? Pro upper gi endoscopy, biopsy N/A 04/04/2016 UPPER GASTROINTESTINAL ENDOSCOPY,WITH BIOPSY SINGLE OR MULTIPLE performed by Julia Ashraf MD at [facility] ENDOSCOPY Patient Active Problem List Diagnosis [...] (WELLBUTRIN) 100 mg Tablet ? ? Glucosamine &Wvhqoirvz-PS-Hfo9 066-008-27-0.5 mg Tablet ??? fish oil-omega-3 fatty acids [...] bariatric surgery and our outcomes here at [facility]. We went over the small but [...] obesity documented in this encounter Care Teams Project Manager Relationship Specialty Start Date End Date Radhika Xiao APRN [address] [place] [address] PCP - General Family Medicine 03/28/16 documented as of this encounter
--- OUTSIDE RECORDS SUMMARY | 2024-06-09 20:23 | XMS_ITS | Encounter Summary ---
Author Organization [facility] Address [facility] [place] [address] Care Team Providers Care Bar Supervisor Name Role Phone Vimal Xiao APRN Primary [...] Expiration Date Visits Re quested Visits Authorized [id number] 1 1 Encounter Details Date Type Department Care Team (Late st Contact Info) Description 05/16/2016 7:30 AM EDT - 05/16/2016 11:58 AM EDT Surgery [place] [phone] Juan Monge MD [facility] [place] [address] @LAPAROSCOPIC GASTROPLASTY W/ ANABELLE-EN-Y CONSTRUCTION (WRVU 29.4) [...] * Juan Monge MD - Primary * [facility]ident-Surgeon Orestes History of [...] changed to oral pain medications and the CARGO SURVEYOR was discontinued on POD# 1. He was [...] mouth nightly. 1 g Refills: 0 Glucosamine &Rulkostme-ZJ-Dxg4 164-191-75-0.5 mg Tab Take 1 tablet by mouth [...] Watts LD; Rebeca Jiménez APRN General Surgery [phone] 09/05/2016 9:00 AM Arabella Watts LD; Rebeca Jiménez APRN General Surgery [phone] Instructions Given to Patient at Discharge: BARIATRIC SURGERY DISCHARGE INFORMATION CONTACT INFORMATION: [phone] Surgeons: Marimar Larson and William [phone] Prenatal Genetic Counselor: [phone] (Saturday through Saturday, 8:00 AM -5:00 PM) Dietitians: [phone] Non-business hours: [phone], ask for general surgeon personal development educator FOR EMERGENCIES: CALL 911 (trouble breathing, chest [...] for life. Signed: MC Cheatham 05/17/2016 Primary Star Physician: VIMAL XIAO APRN [phone] [facility] [address] documented in this encounter Discharge Instructions * Discharge Instructions* Yvonne Garcia PA - 05/17/2016 1:29 PM EDT Scheduled Appointments: Future Appointments and Orders ?? Future Appointments?? Provider?? Department?? Dept Phone? 06/06/2016 9:00 AM?? Arabella Watts LD; Rebeca Jiménez APRN?? General Surgery?? [phone]? 09/05/2016 9:00 AM?? Arabella Watts LD; Rebeca Jiménez APRN?? General Surgery?? [phone]? Instructions Given to Patient at Discharge: ?? BARIATRIC SURGERY DISCHARGE INFORMATION ?? CONTACT INFORMATION: [phone] Surgeons: Marimar Larson and William [phone] Prenatal Genetic Counselor: [phone] (Saturday through Saturday, 8:00 AM -5:00 PM) Dietitians: [phone] Non-business hours: [phone], ask for general surgeon personal development educator ?? FOR EMERGENCIES: CALL 911 (trouble breathing, [...] Reported on 12/28/2016 3 03/01/2016 12/28/2016 Glucosamine &Jdpugyobq-RC-Rrd3 689-287-34-0.5 mg Tablet Take 1 tablet by mouth [...] understanding ofall directions. Pt was escorted via [address] [place] [address] out of facility. * Pham Leal RN - 05/16/2016 8:28 PM EDT Patient arrived to [facility] via bed from PACU s/p lap gastric bypass. Patient AOx 4, HR reg, lung sounds clear/diminished, voiding CYU without difficulty. +csmt to all extremities. Dressing to abdomen C, D, and I; one site is drainage, band aide changed . Pain0/10 at this time, Dilaudid CARGO SURVEYOR controlling pain. Patient oriented to room, call lynch to bedside, please see flowsheet for full assessment. Will continue to monitor Pham J [place], RN * Bonnie Kwan RN - 05/16/2016 12:30 PM EDT Pt arrived sleepy, but quickly c/o right shoulder pain and some lap abd pain. 1220: Reviewed validation engineer with return demonstration. Talkative. 1330: Turns well, [...] Izaguirre MD - 05/16/2016 6:[address] [facility] Department of General Surgery Interval History [...] no Primary Care Provider: VIMAL XIAO APRN [phone] Patient/Caregiver Goals of Treatment: To return home [...] transition of care planning. SHANDA Mcgregor Pager: [phone] * Plan of Care - Pham Leal [...] voiding adequate amount CYU without difficulty. Dilaudid CARGO SURVEYOR for pain. Pt used CPAP throughout night. Lovenoxteaching completed. WiIll continue to closely monitor. PLAN MOVING FORWARD: -[x]Pain Control -[x]Mobilize INDIVIDUALIZED FALL PREVENTION: Patient has history of: Past Medical History Diagnosis Date ??? HLD (hyperlipidemia) ??? Morbid obesity ??? [place] (obstructive sleep apnea) Patient has following SCHEDULED medications: ??? sodium chloride 0.9 % 5 mL Intravenous BID ??? CARGO SURVEYOR Shift Total Intravenous 2 Times Daily- CARGO SURVEYOR Shift Total ??? sennosides 17.6 mg Oral BID And ??? docusate sodium 100 mg Oral BID ??? enoxaparin 40 mg Subcutaneous 2 times per day ??? pantoprazole 40 mg Intravenous Daily ??? buPROPion 100 mg Oral Daily ??? acetaminophen 650 mg Oral Once Patient has following PRN medications: sodium chloride 0.9 %, lidocaine, prochlorperazine, ondansetron, nalOXone, CARGO SURVEYOR brown, oxyCODONE, bisacodyl, magnesium hydroxide, diphenhydrAMINE, BUpivacaine-EPINEPHrine [...] - 05/16/2016 10:16 PM EDT Konstantin Hickey [id number] y/o male admitted post gastric bypass [...] Monge MD - 05/16/2016 11:17 AM EDT [facility] Operative Note Patient Name: Konstantin Hickey : [id number] MR#: [id number] Case Date: 05/16/2016 Surgeon: Surgeon(s) and Role: [...] distal bowel was chosen to create the nxnr-br-svqj jejunojejunostomy. The duodenal, afferent limb was approximated [...] suture in two layers with a 30 Gambian Bougie (blunt-tipped) in place. The Bougie was [...] Procedure Name Priority Date/Time Associated Diagnosis Comments RUBBER PROCESS HAND SCAN 05/18/2016 12:00 AM EDT HEMOGRAM Routine [...] in this encounter Results * SCAN DOC: RUBBER PROCESS HAND (05/18/2016 12:00 AM EDT) Anatomical Region Laterality Modality Other Scanning Provider MEDIA MGR SCAN EXT O RDR/RSLT * (ABNORMAL) Differential, Automated (05/17/2016 4:20 AM EDT) Neutrophil % 83.2 % [facility] Neutrophil Absolute 9.41(H) 1.50 - 6.30 x10(3)/[facility] Lymph % 9.3 % [facility] Lymphocytes Abs 1.0 1.0 - 3.6 x10(3)/[facility] Monocyte % 7.0 % [facility] Monocyte Abs 0.8 0.2 - 1.0 x10(3)/[facility] Eos % 0.0 % [facility] Eosinophils Abs 0.0 0.0 - 0.5 x10(3)/[facility] Basophil % 0.1 % [facility] Baso Absolute 0.0 0.0 - 0.2 x10(3)/[facility] LAB[facility] Immature Gran % 0.40 % [facility] Comment: Immature granulocytes(IG's)percentage and absolute count will include metamyelocytes, myelocytes, and promyelocytes. Blood smears from CBCs yielding IG's will be scanned manually for concordance. If this scan disagrees with the automated IG or if promyelocytes are noted, a manual differential will be performed. Immature Gran Absolute 0.05 0.00 - 0.05 x10(3)/[facility] Blood specimen (specimen) 05/17/2016 4:20 AM EDT 05/17/2016 4:35 AM EDT Narrative Resulting Agency Comment Spec In Lab Lashae Morrow MD HEMATOLOGY ORDERAB LES [facility] [place] [address] * (ABNORMAL) Hemogram (05/17/2016 4:20 AM EDT) White Blood Cell 11.3(H) 4.0 - 10.0 x10(3)/[facility] Red Blood Cell 4.32(L) 4.63 - 6.08 x10(6)/ L [facility] Hemoglobin 12.2(L) 13.7 - 17.5 gm/dL [...] [facility] NRBC% auto 0.0 % [facility] NRBC Absolute 0.000 0.000 - 0.012 x10(3)/mc L [facility] Blood specimen (specimen) 05/17/2016 4:20 AM EDT 05/17/2016 4:35 AM EDT Narrative Resulting Agency Comment Spec In Lab Lashae Morrow MD HEMATOLOGY ORDERAB LES Performing Organization Address City/[facility]/[place] [address] * Phosphorus (05/17/2016 4:20 AM EDT) Phosphorus 3.1 2.5 - 4.5 mg/dL [facility] Blood specimen (specimen) 05/17/2016 4:20 AM EDT 05/17/2016 4:35 AM EDT Narrative Resulting Agency Comment Spec In Lab Lashae Morrow MD CHEMISTRY ORDERABL ES Performing Organization Address City/[facility]/ZIP Co de Phone Number [facility] [place] [address] * Magnesium (05/17/2016 4:20 AM EDT) Magnesium 0.77 0.69 - 1.07 mmol/L [facility] Blood specimen (specimen) 05/17/2016 4:20 AM EDT 05/17/2016 4:35 AM EDT Narrative Resulting Agency Comment Spec In Lab Lashae Morrow MD CHEMISTRY ORDERABL ES [facility] [place] [address] * (ABNORMAL) Basic Metabolic Panel (non-fasting) (05/17/2016 4:20 AM EDT) Pathologist [facility] Glucose 124 65 - 199 mg/dL [facility] Comment:Diabetes: >=200 mg/d L plus symptoms Blood Urea Nitrogen 10 10 - 20 mg/dL [facility] Creatinine 1.11 0.80 - 1.50 mg/dL [facility] Comment: Please note that the pediatric reference intervals supplied above were not validated at [facility]. Results from pediatric patients [...] LABORATORY Est Glomerular Filtration Rate >60 >=60 [facility] Comment: This estimated GFR [...] the following links into your internet browser. [email or web address] Blood specimen (specimen) 05/17/2016 4:20 AM EDT 05/17/2016 4:35 AM EDT Narrative Resulting Agency Comment Spec In Lab Lashae Mrorow MD CHEMISTRY ORDERABL ES [place] [phone] documented in this encounter Visit Diagnoses Not [...] NOT exceed 2 mg total dose. Per CARGO SURVEYOR order., Recovery (Recovery-Hospital Unit), Routine ondansetron (ZOFRAN) injection 4 mg 4 mg, Intravenous, EVERY 30 MIN PRN, 2 doses, Starting on Sat05/16/16 at 2047, Until Brooke 05/17/16 at 1608, Nausea, May repeat dose once in 30 minutes if no relief from previous dose. If multiple antiemetics are ordered, use ondansetron first, prochlorperazine second. Per CARGO SURVEYOR order. , Recovery (Recovery-Hospital Unit) Given 05/16/2016 [...] ordered, use ondansetron first, prochlorperazine second. Per CARGO SURVEYOR order., Recovery (Recovery-Hospital Unit), Routine sennosides (SENOKOT) [...] Pham Leal RN) HYDROmorphone (DILAUDID) 1 mg/mL CARGO SURVEYOR 50 mL (CANCELED) Intravenous, CARGO SURVEYOR ONLY, Starting on Sat05/16/16 at 1145, Until [...] Provider: Rachel Jewell RN)1159 (Given - Provider: Racehl Jewell RN)1208 (Given - Provider: Rachel Jewell [...] NOT exceed 2 mg total dose. Per CARGO SURVEYOR order., Recovery (Recovery-Hospital Unit), Routine ondansetron (ZOFRAN) [...] ordered, use ondansetron first, prochlorperazine second. Per CARGO SURVEYOR order. , Recovery (Recovery-Hospital Unit) 2149 (Given [...] ordered, use ondansetron first, prochlorperazine second. Per CARGO SURVEYOR order., Recovery (Recovery-Hospital Unit), Routine sodium chloride [...] Routine documented in this encounter Care Teams Bar Supervisor Relationship Specialty Start Date End Date Vimal Xiao, USER EXPERIENCE ARCHITECT [address] [place] [address] PCP - General Family Medicine 03/28/16 documented as of this encounter
--- OUTSIDE RECORDS SUMMARY | 2024-06-09 20:23 | XMS_ITS | Encounter Summary ---
[place] [address] Care Team Providers Care Economics Professor Name Role Phone Radhika Xiao APRN Primary Care Provider [phone] Encounter Details Date Type Department Care Team (Late st Contact Info) Description 01/10/2017 Telephone [place] [address] Evette Adler Social History Tobacco Use Types [...] on filedocumented in this encounter Care Teams Economics Professor Relationship Specialty Start Date End Date Radhika Xiao, GERALD [address] [facility] [place] [address] PCP - General Family Medicine 03/28/16 documented as of this encounter
--- OUTSIDE RECORDS SUMMARY | 2024-06-09 20:23 | XMS_ITS | Encounter Summary ---
Author Organization [facility] [place] [address] Care Team Providers Care Technical Inspector Name Role Phone Radhika Xiao APRN Primary [...] Expiration Date Visits Re quested Visits Authorized [id number] 1 1 Encounter Details Date Type Department Care Team (Late st Contact Info) Description 04/04/2016 2:54 PM EDT Anesthesia [place] [address] Neelam Escobar MD [facility] [place] [address] Margarita Schwartz CRNA [facility] [place] [address] Anesthesia Record Procedure Summary Procedure Name Responsible Anesthesiologist Anesthesia Start Time Anesthesia Stop Time EGD, UPPER GI ENDOSCOPY (WRVU 2.09) (Trunk) Neelam Escobar MD 04/04/16 1454 04/04/16 1604 Events Date Time Event Comment 04/04/2016 1433 1454 AN Verify 1454 Start 1454 An Start Data 1501 Anesthesia Ready 1534 Break/Relief In Pee nelson, SOCIOCULTURAL ANTHROPOLOGY PROFESSOR 1604 an stop data 1604 Recovery or [...] 1436; median vein right (underside of arm); ngbm-lli-wkhako catheter system; 20 gauge; Adan Hutchins RN; [...] Escobar MD - 04/05/2016 9:17 AM EDT [facility] Department of Anesthesiology Post-procedure Note Patient: Konstantin Hickey Procedure Summary Date Anesthesia Start Anesthesia Stop Room / Location 04/04/16 1454 1604 [facility] ENDO 2 / [facility] ENDOSCOPY Procedure Diagnosis Surgeon Responsible Provider EGD, [...] All Anesthesia Providers: Anesthesiologist: Neelam Escobar MD SOCIOCULTURAL ANTHROPOLOGY PROFESSOR: Margarita Schwartz CRNA Last (1hr) Vitals: BP Temp Pulse Resp SpO2 Patient Location: PACU/[facility] Level of Consciousness: Awake and Alert Pain [...] Surgery Program 1. Attended Introduction to the [facility] Bariatric Surgery Program seminar, a comprehensive two hour meeting that provides a program overview, education on bariatric surgeries offered at [facility], risks andbenefits, as well as patient expectations and follow up: 06/17/15 [facility]SP Educational seminars viewed: Grades on post-testin%;100%; 100% The [facility] Educational Handbook is provided at preoperative visit #1. 2. Pre-operative programmatic evaluations required: PCP evaluation and letter of support to proceedwith surgery, [facility] labwork (can be done on day of visit #1) and psychological evaluation- minimum of2 visits. 3. Bariatric Surgery Program evaluations with RD and PHARMACIST CRITICAL CARE: Not scheduled 4. Weight history: 11/09/09- 390.9#; [...] risks discussed with patient. Plan discussed with SOCIOCULTURAL ANTHROPOLOGY PROFESSOR. PAT Staff Note documented in this encounter [...] mL/hr documented in this encounter Care Teams Technical Inspector Relationship Specialty Start Date End Date Radhika Xiao, GERALD [address] [place] [address] PCP - General Family Medicine 03/28/16 documented as of this encounter
--- OUTSIDE RECORDS SUMMARY | 2024-06-09 20:23 | XMS_ITS | Encounter Summary ---
Author Organization [facility] [place] [address] Care Team Providers Care Aperture Mask Etcher Name Role Phone Radhika Xiao GERALD Primary Care Provider Encounter Details Date Type Department Care Team (Late st Contact Info) Description 04/04/2016 Telephone General Surgery at [facility] [place] [phone] Rebeca Jiménez WOOLING MACHINE OPERATOR [facility] [place] [address] Social History Tobacco Use Types Packs/Day Years [...] esophagitis documented in this encounter Care Teams Aperture Mask Etcher Relationship Specialty Start Date End Date Radhika Xiao APRN [address] [place] [address] PCP - General Family Medicine 03/28/16 documented as of this encounter
--- OUTSIDE RECORDS SUMMARY | 2024-06-09 20:23 | XMS_ITS | Encounter Summary ---
Author Organization [facility] Address [facility] [place] [address] Care Team Providers Care Labor Law Professor Name Role Phone Radhika Xiao APRN Primary Care Provider [phone] Reason for Visit * Auth/Cert Specialty Diagnoses [...] Expiration Date Visits Re quested Visits Authorized [id number] 1 1 Encounter Details Date Type Department Care Team (Late st Contact Info) Description 04/04/2016 2:00 PM EDT - 04/04/2016 3:00 PM EDT [place] [address] Julia Ashraf MD [facility] DR [place] [address] EGD, UPPER GI ENDOSCOPY (WRVU 2.09) Social [...] - 04/04/2016 4:19 PM EDT Please call [phone] before 8pm with problems, questions or concerns, after 5pm call the Hospital at [phone] and ask to speak to the Log Cut [employer] Sawyer rock mason and the binder folder operator will contact that person for you. [...] through Care Everywhere. * COLONOSCOPY : POST-OP (EGYPTIAN) * EGD (UPPER ENDOSCOPY) : POST-OP (EGYPTIAN) documented in this encounter Medications at Time [...] Reported on 12/28/2016 3 03/01/2016 12/28/2016 Glucosamine &Vuviwqjdh-WM-Slb6 790-129-78-0.5 mg Tablet Take 1 tablet by mouth [...] Electronically signed by: Orlando Cantor Gastroenterology Fellow [facility] Pager [phone] 04/04/2016 documented in this encounter Plan of [...] Report (04/04/2016 3:56 PM EDT) Final Diagnosis [id number] ? Location: 4T; EA05; A The signing [...] ng: (T1) ??ksb 04/09/2016 4:16 PM EDT [facility] GI Biopsy 04/04/2016 3:56 PM EDT 04/04/2016 3:56 PM EDT GI Biopsy 04/04/2016 3:56 PM EDT 04/04/2016 3:56 PM EDT GI Biopsy 04/04/2016 3:56 PM EDT 04/04/2016 3:56 PM EDT Julia Ashraf MD PATHOLOGY/CYTOLOGY O RDSTEPHANI Performing Organization Address City/[facility]/[place] [address] * Specimen to Pathology (surgical or derm) (04/04/2016 3:56 PM EDT) AP Specimen 04/04/2016 3:56 PM EDT 04/04/2016 3:57 PM EDT Narrative [facility] - 04/04/2016 3:57 PM EDT Specimen requisition ordered. ??Separate Pathology report to follow Julia Ashraf MD PATHOLOGY/CYTOLOGY O [place] Performing Organization Address [facility] [place] [address] * Specimen to Pathology (surgical or derm) (04/04/2016 3:56 PM EDT) AP Specimen 04/04/2016 3:56 PM EDT 04/04/2016 3:57 PM EDT Narrative [facility] - 04/04/2016 3:56 PM EDT Specimen requisition ordered. ??Separate Pathology report to follow Julia Ashraf MD PATHOLOGY/CYTOLOGY O [place] Performing Organization Address City/[facility]/ZIP Co de Phone Number [facility] [place] [address] * Specimen to Pathology (surgical or derm) (04/04/2016 3:56 PM EDT) AP Specimen 04/04/2016 3:56 PM EDT 04/04/2016 3:56 PM EDT Narrative [facility] - 04/04/2016 3:56 PM EDT Specimen requisition ordered. ??Separate Pathology report to follow Julia Ashraf MD PATHOLOGY/CYTOLOGY O [place] [facility] [place] [address] * COLONOSCOPY (04/04/2016 2:45 PM EDT) COLONOSCOPY [facility] Endoscopy Patient Name: Konstantin Hickey ? Procedure Date: 04/04/2016 2:45 PM ? Date of : 1980 ? Age: 35 ? Order #: [id number] ? Procedure: ? Colonoscopy Indications: ? Iron deficiency anemia Providers: ? Francesca Case, BERRY, ? Shavon Disla, Wire Wrapper Machine Operator, [place] ? MD Devaughn Referring MD: ?Radhika [...] (04/04/2016 2:44 PM EDT) UPPER GI ENDOSCOPY [facility] Endoscopy Patient Name: Konstantin Hickey ? Procedure Date: 04/04/2016 2:44 PM ? Date of : 1980 ? Age: 35 ? Order #: [id number] ? Procedure: ? Upper GI endoscopy Indications: ? Iron deficiency anemia Providers: ? Julia Ashraf, Francesca Lopez, RN, ? Shavon Disla, Wire Wrapper Machine Operator, [place] ? MD Devaughn, Maira Menodza, ? Referring MD: ?Radhika Xiao MD Requesting [...] CRNA) documented in this encounter Care Teams Labor Law Professor Relationship Specialty Start Date End Date Radhika Xiao, ALARM INSTALLER [address] [place] [address] PCP - General Family Medicine 03/28/16 documented as of this encounter
--- OUTSIDE RECORDS SUMMARY | 2024-06-09 20:23 | XMS_ITS | Encounter Summary ---
Author Organization Formerly [facility] [place] [address] Care Team Providers Care Acid Extractor Name Role Phone Radhika Xiao GERALD Primary Care Provider [phone] Reason for Visit * Reason Comments Follow-up Encounter Details Date Type Department Care Team (Late st Contact Info) Description 12/28/2016 12:30 PM EDT Office Visit General Surgery at [facility] [place] [address] Rebeca Jiménez, AMMUNITION OFFICER [facility] [place] [address] Arabella Watts, RD [facility] GENERAL SURGERY [place] [id number] S/P gastric bypass Social History Tobacco Use [...] 12/28/2016 12:30 PM EDT [facility] cancer program coordinator Jenny: [phone] Dietitian: [phone] Surgeons/ nurse practitioner: [phone] Nurse line: [phone] Testing: Labwork: Today. Please note that labwork results from non-[facility] labs take longer to get results. Please remind the electrical laboratory technician that certain test tubes need to be [...] after surgery, and yearly thereafter. Please call [phone] if you do not receive an appointment [...] month from 1-2 PM at [facility]- no registration required Nutrition and Activity apps- Baritastic, My Fitness Pal, Lose It, My Plate Internet resources: www.PassbeeMedia www.[employer] www.datatracker.Resermap www.The Yoga House.Resermap/blog [facility] facebook page: https://www.facebook.com/[facility]EBariatricSurgery Books & Magazines: - Recipes for Life [...] Labwork 06/06/2016 361.2# 50.72 19.1 -[place] 1 tablet BID -Ferrous Sulfate 325 mg [...] DIAGNOSTIC performed by Julia Ashraf MD at [facility] ENDOSCOPY ??? PRO LAP GASTRIC BYPASS/ANABELLE-EN-Y N/A 05/16/2016 @LAPAROSCOPIC GASTROPLASTY, performed by Juan Thomas MD at [facility] MAIN OR ??? PRO UPPER GI ENDOSCOPY, BIOPSY N/A 04/04/2016 UPPER GASTROINTESTINAL ENDOSCOPY,WITH BIOPSY SINGLE OR MULTIPLE performed by Julia Ashraf MD at [facility] ENDOSCOPY ??? PRO UPPER GI ENDOSCOPY, DIAGNOSTIC N/A 04/04/2016 EGD, UPPER GI ENDOSCOPY performed by Julia Ashraf MD at [facility] ENDOSCOPY ??? PRO UPPER GI ENDOSCOPY, DIAGNOSTIC N/A 05/16/2016 ENDOSCOPY, UPPER GI, DIAGNOSTIC, WITH OR WITHOUT SPECIMENS performed by Juan Thomas MD at [facility] OR Allergies: NKDA Medications: reviewed in edh [...] resolves with increasing his dietary fiber intake. 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 Lives with girlfriend who [...] labwork is done by the primary child care giver: please send a copy to the Bariatric Surgery Program, General Surgery Clinic, [facility], attention Dorys Rivers APRN. Questions regarding [facility] Bariatric Surgery Program patients: please call Abiodun Rivers APRN at [phone] or [phone] beeper [phone]. E-mail: * Arabella Watts, RD - 12/28/2016 12:30 [...] made. 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
--- OUTSIDE RECORDS SUMMARY | 2024-06-09 20:23 | XMS_ITS | Encounter Summary ---
Author Organization [facility] Address [facility] [place] [address] Care Team Providers Care Data Collector Name Role Phone Radhika Xiao GERALD Primary Care Provider Reason for Visit * Reason Comments Morbid [...] Expiration Date Visits Re quested Visits Authorized [id number] 1 1 Encounter Details Date Type Department Care Team (Late st Contact Info) Description 04/04/2016 9:30 AM EDT Office [place] [address] Dorys Rivers APRN [facility] [place] [address] Morbid obesity with BMI [...] BARIATRIC SURGERY PROGRAM SECOND VISIT Contact information: [facility] Admin coordinator Jenny: [phone] Dietitians: [phone] Surgeons/ nurse practitioners: [phone] Nurse line: [phone] 1. Pending information: upper endoscopy and colonoscopy scheduled 04/04/2016. Have copy of ongoing counseling faxed to [facility] . ?? Lab work before preoperative visit [...] 10:30.----- Call Gisselle the next day at [phone] to schedule. Your surgery date may change if insurance approval is delayed Prepare for the Pre-op Class by doing the followin. Review the program handbook and come to class with a list of questions. 2. Watch the educational videos including Psychological Implications of bariatric surgery on the [facility] website under Bariatric Surgery ([email or web address]/videos_and_lectures.html) 3. Come prepared to the class [...] be crushed (if permitted by the drug burial vault setter) or taken in liquid form for TWO [...] alternative forms of control. Bariatric surgery apps- [facility] facebook page: [email or web address]Surgery documented in this encounter Progress Notes * [...] He has attended a Introduction to the [facility] Bariatric Surgery Program seminar, a comprehensive two hour meeting that provides a program overview, education on bariatric surgeries offered at [facility], risks and benefits, as well as patient expectations and follow up, in 06/17/2015. [facility] Bariatric Surgery Program Educational seminars viewed: 10/24/2015. 3. Grades on post- testin% and 100% x 2. The [facility] Educational Handbook is provided at visit #1. 2. Pre-operative programmatic evaluations: PCP evaluation and letter of support to proceed with surgery, [facility] lab work and psychological evaluation 3. Bariatric Surgery Program evaluations with RD and STRAW HAT BRIM RAISER OPERATOR: today. 4. Weight history: 390.9# on 11/09/09; [...] 2 hour class taught by the Bariatric STRAW HAT BRIM RAISER OPERATOR and RD will be scheduled ?? During [...] 56.61 Discussion of bariatric surgeries performed at [facility], risks and benefits, and the [facility] Bariatric Surgery Program requirements: The risks of immediate and terminal system operator complications as well as the benefits of [...] again emphasized. The need for commitment to terminal system operator lifestyle changes, with healthy diet and regular physical activity was stressed to achieve and sustain terminal system operator weight loss. Benefits of bariatric surgery discussed: [...] often will need to remain on insulin terminal system operator. There is less improvement to type 2 [...] The rate of leak after sleeve at [facility] is 0%. ?? stricture of gastric remnant [...] Hickey has met the requirements of the [facility] Bariatric Surgery Program, and has an appointment today for surgical consultation. He was encouraged to call with any questions or concerns. Data reviewed: Visit #2 questionnaire Lab results Information reviewed with patient: 1. [facility] Bariatric Surgery Program Educational Handbook, bariatric surgery [...] 5 minutes Group counselin minutes Questions regarding [facility] Bariatric Surgery Program patients: please call Madhavi Jiménez APRN or Abiodun Rivers APRN at [phone] or [phone] beeper [phone]. * Myrtle Farris - 04/04/2016 9:30 AM [...] through dieting have been unsuccessful over the terminal system operator. Advised patient that bariatric surgery is a [...] EDT) Iron 55 45 - 160 mcg/dL [facility] TIBC 332 250 - 450 mcg/dL [facility] Iron Saturation 17(L) 20 - 50 % [facility] Blood specimen (specimen) 04/30/2016 1:53 PM EDT 04/30/2016 2:07 PM EDT Narrative Resulting Agency Comment Spec In Lab Juan Thomas MD CHEMISTRY ORDERABLES Performing Organization Address [facility]/ZIP Co de Phone Number [facility] [place] [address] * Ferritin (04/30/2016 1:53 PM EDT) Ferritin 62 30 - 400 ng/mL [facility] Comment: Pediatric reference ranges not verified at [facility], interpret with caution. Reference ranges for females greater than 50 years of age approach values for men, i.e., 30-400 ng/mL. Blood specimen (specimen) 04/30/2016 1:53 PM EDT 04/30/2016 2:07 PM EDT Narrative Resulting Agency Comment Spec In Lab Juan Thomas MD CHEMISTRY ORDERABLES Performing Organization Address City/[facility]/ZIP Co de Phone Number [facility] [place] [address] documented in this encounter Visit Diagnoses Diagnosis Morbid obesity with BMI of 50.0-59.9, adult Morbid obesity Iron deficiency anemia, unspecified iron deficiency anemia type documented in this encounter Care Teams Data Collector Relationship Specialty Start Date End Date Radhika Xiao, MAGNETIC TAPE WINDER [address] [place] [address] PCP - General Family Medicine 03/28/16 documented as of this encounter
--- OUTSIDE RECORDS SUMMARY | 2024-06-09 20:23 | XMS_ITS | Encounter Summary ---
Author Organization [facility] Address [facility] [place] [address] Care Team Providers Care Graphic Engineer Name Role Phone Vimal Xiao APRN Primary Care Provider [phone] Reason for Visit * Auth/Cert Specialty Diagnoses [...] Expiration Date Visits Re quested Visits Authorized [id number] 1 1 Encounter Details Date Type Department Care Team (Latest Contact Info) Description 05/16/2016 6:02 AM EDT - 05/17/2016 2:07 PM EDT Hospital Encounter [address] [place] [id number] Juan Monge MD [facility] [place] [address] Discharge Disposition: Home Social History Tobacco Use [...] changed to oral pain medications and the ARCHITECTURAL ASSOCIATE was discontinued on POD# 1. He was [...] mouth nightly. 1 g Refills: 0 Glucosamine &Sxczyvadt-HL-Hng6 966-686-30-0.5 mg Tab Take 1 tablet by mouth [...] Watts LD; Rebeca Jiménez APRN General Surgery [phone] 09/05/2016 9:00 AM Arabella Watts LD; Rebeca Jiménez APRN General Surgery [phone] Instructions Given to Patient at Discharge: BARIATRIC SURGERY DISCHARGE INFORMATION CONTACT INFORMATION: [phone] Surgeons: Marimar Larson and William [phone] Manager Custom: [phone] (Saturday through Saturday, 8:00 AM -5:00 PM) Dietitians: [phone] Non-business hours: [phone], ask for general surgeon telecommunications network planner FOR EMERGENCIES: CALL 911 (trouble breathing, chest [...] for life. Signed: MC Cheatham 05/17/2016 Primary [place] Physician: VIMAL XIAO APRN [address] [facility] [address] documented in this encounter Discharge Instructions * Discharge Instructions* Yvonne Garcia PA - 05/17/2016 1:29 PM EDT Scheduled Appointments: Future Appointments and Orders ?? Future Appointments?? Provider?? Department?? Dept Phone? 06/06/2016 9:00 AM?? Arabella Watts LD; Rebeca Jiménez APRN?? General Surgery?? [phone]? 09/05/2016 9:00 AM?? Arabella Watts LD; Rebeca Jiménez, GERALD?? General Surgery?? [phone]? Instructions Given to Patient at Discharge: ?? BARIATRIC SURGERY DISCHARGE INFORMATION ?? CONTACT INFORMATION: [phone] Surgeons: Marimar Larson and William [phone] Manager Custom: [phone] (Saturday through Saturday, 8:00 AM -5:00 PM) Dietitians: [phone] Non-business hours: [phone], ask for general surgeon telecommunications network planner ?? FOR EMERGENCIES: CALL 911 (trouble breathing, [...] Reported on 12/28/2016 3 03/01/2016 12/28/2016 Glucosamine &Oxehsceri-MX-Adv1 [id number] mg Tablet Take 1 tablet by mouth [...] understanding ofall directions. Pt was escorted via [address] [place] [address] out of facility. * Pham Leal RN - 05/16/2016 8:28 PM EDT Patient arrived to [address] [place] [address] bed from PACU s/p lap gastric bypass. Patient AOx 4, HR reg, lung sounds clear/diminished, voiding CYU without difficulty. +csmt to all extremities. Dressing to abdomen C, D, and I; one site is drainage, band aide changed . Pain0/10 at this time, Dilaudid ARCHITECTURAL ASSOCIATE controlling pain. Patient oriented to room, call lynch to bedside, please see flowsheet for full assessment. Will continue to monitor Pham Leal RN * Bonnie Kwan RN - 05/16/2016 12:30 PM EDT Pt arrived sleepy, but quickly c/o right shoulder pain and some lap abd pain. 1220: Reviewed diamond sizer and sorter with return demonstration. Talkative. 1330: Turns well, [...] Izaguirre MD - 05/16/2016 6:46 AM EDT [facility] Department of General Surgery Interval History [...] no Primary Care Provider: VIMAL XIAO, GERALD [phone] Patient/Caregiver Goals of Treatment: To return home [...] transition of care planning. SHANDA Mcgregor Pager: [phone] * Plan of Care - Pham Leal [...] voiding adequate amount CYU without difficulty. Dilaudid ARCHITECTURAL ASSOCIATE for pain. Pt used CPAP throughout night. Lovenoxteaching completed. WiIll continue to closely monitor. PLAN MOVING FORWARD: -[x]Pain Control -[x]Mobilize INDIVIDUALIZED FALL PREVENTION: Patient has history of: Past Medical History Diagnosis Date ??? HLD (hyperlipidemia) ??? Morbid obesity ??? [place] (obstructive sleep apnea) Patient has following SCHEDULED medications: ??? sodium chloride 0.9 % 5 mL Intravenous BID ??? ARCHITECTURAL ASSOCIATE Shift Total Intravenous 2 Times Daily- ARCHITECTURAL ASSOCIATE Shift Total ??? sennosides 17.6 mg Oral BID And ??? docusate sodium 100 mg Oral BID ??? enoxaparin 40 mg Subcutaneous 2 times per day ??? pantoprazole 40 mg Intravenous Daily ??? buPROPion 100 mg Oral Daily ??? acetaminophen 650 mg Oral Once Patient has following PRN medications: sodium chloride 0.9 %, lidocaine, prochlorperazine, ondansetron, nalOXone, ARCHITECTURAL ASSOCIATE brown, oxyCODONE, bisacodyl, magnesium hydroxide, diphenhydrAMINE, BUpivacaine-EPINEPHrine [...] - 05/16/2016 10:16 PM EDT Konstantin Hickey [id number] y/o male admitted post gastric bypass [...] Monge MD - 05/16/2016 11:17 AM EDT [facility] Operative Note Patient Name: Konstantin Hickey : [id number] MR#: [id number] Case Date: 05/16/2016 Surgeon: Surgeon(s) and Role: [...] distal bowel was chosen to create the hnxp-jr-pnym jejunojejunostomy. The duodenal, afferent limb was approximated [...] suture in two layers with a 30 Arabic Bougie (blunt-tipped) in place. The Bougie was [...] Procedure Name Priority Date/Time Associated Diagnosis Comments TON CONTAINER SHIPPER SCAN 05/18/2016 12:00 AM EDT HEMOGRAM Routine [...] in this encounter Results * SCAN DOC: TON CONTAINER SHIPPER (05/18/2016 12:00 AM EDT) Anatomical Region Laterality Modality Other Scanning Provider MEDIA MGR SCAN EXT O RDR/RSLT * (ABNORMAL) Differential, Automated (05/17/2016 4:20 AM EDT) Neutrophil % 83.2 % [facility] Neutrophil Absolute 9.41(H) 1.50 - 6.30 x10(3)/[facility] Lymph % 9.3 % [facility] Lymphocytes Abs 1.0 1.0 - 3.6 x10(3)/[facility] Monocyte % 7.0 % [facility] Monocyte Abs 0.8 0.2 - 1.0 x10(3)/[facility] Eos % 0.0 % [facility] Eosinophils Abs 0.0 0.0 - 0.5 x10(3)/[facility] Basophil % 0.1 % [facility] Baso Absolute 0.0 0.0 - 0.2 x10(3)/[facility] Immature Gran % 0.40 % [facility] Comment: Immature granulocytes(IG's)percentage and absolute count will include metamyelocytes, myelocytes, and promyelocytes. Blood smears from CBCs yielding IG's will be scanned manually for concordance. If this scan disagrees with the automated IG or if promyelocytes are noted, a manual differential will be performed. Immature Gran Absolute 0.05 0.00 - 0.05 x10(3)/[facility] Blood specimen (specimen) 05/17/2016 4:20 AM EDT 05/17/2016 4:35 AM EDT Narrative Resulting Agency Comment Spec In Lab Lashae Morrow MD HEMATOLOGY ORDERAB LES [facility] [place] [address] * (ABNORMAL) Hemogram (05/17/2016 4:20 AM EDT) White Blood Cell 11.3(H) 4.0 - 10.0 x10(3)/[facility] Red Blood Cell 4.32(L) 4.63 - 6.08 x10(6)/[facility] Hemoglobin 12.2(L) 13.7 - 17.5 gm/dL [facility] Hematocrit 37.4(L) 40.0 - 51.0 % [facility] Mean Cell Volume 86.6 79.0 - 92.0 fL [facility] Mean Cell Hemoglobin 28.2 25.6 - 32.2 pg [facility] Mean Cell Hemoglobin Concentration 32.6 32.0 - 36.5 gm/dL [facility] Platelet 283 145 - 370 x10(3)/mc L [facility] RDW Standard Deviation 41.4 35.0 - 46.0 fL [facility] RDW coefficient of variation 13.3 10.9 - 14.4 % [facility] Mean Platelet Volume 10.3 9.0 - 12.0 fL [facility] NRBC% auto 0.0 % [facility] NRBC Absolute 0.000 0.000 - 0.012 x10(3)/mc L [facility] Blood specimen (specimen) 05/17/2016 4:20 AM EDT 05/17/2016 4:35 AM EDT Narrative Resulting Agency Comment Spec In Lab Lashae Morrow MD HEMATOLOGY ORDERAB LES Performing Organization Address City/[facility] Co de Phone Number [facility] [place] [address] * Phosphorus (05/17/2016 4:20 AM EDT) Phosphorus 3.1 2.5 - 4.5 mg/dL [facility] Blood specimen (specimen) 05/17/2016 4:20 AM EDT 05/17/2016 4:35 AM EDT Narrative Resulting Agency Comment Spec In Lab Lashae Morrow MD CHEMISTRY ORDERABL ES Performing Organization Address City/[facility]/ZIP Co de Phone Number [facility] [place] [address] * Magnesium (05/17/2016 4:20 AM EDT) Magnesium 0.77 0.69 - 1.07 mmol/L [facility] Blood specimen (specimen) 05/17/2016 4:20 AM EDT 05/17/2016 4:35 AM EDT Narrative Resulting Agency Comment Spec In Lab Lashae Morrow MD CHEMISTRY ORDERABL ES [facility] [place] [address] * (ABNORMAL) Basic Metabolic Panel (non-fasting) (05/17/2016 4:20 AM EDT) Pathologist [facility] Glucose 124 65 - 199 mg/dL [facility] Comment:Diabetes: >=200 mg/d L plus symptoms Blood Urea Nitrogen 10 10 - 20 mg/dL [facility] Creatinine 1.11 0.80 - 1.50 mg/dL [facility] Comment: Please note that the pediatric reference intervals supplied above were not validated at [facility]. Results from pediatric patients should be interpreted in conjunction to the patient's age, height and muscle mass. Sodium 143 135 - 145 mmol/L [facility] Potassium 3.8 3.5 - 5.0 mmol/L [facility] Comment: Please note: ??Patients with WBC >100,000 may have falsely elevated Potassium levels. ??For accurate Potassium quantification in these patients send serum separator tube (gold top) for subsequent determinations. ??Contact the Clinical Chemistry Laboratory if there are any questions. Chloride 103 98 - 107 mmol/L [facility] Carbon Dioxide 24 22 - 31 mmol/L [facility] Anion Gap 16(H) 5 - 15 mmol/L [facility] Calcium 9.1 8.5 - 10.5 mg/dL [facility] Est [...] the following links into your internet browser. [email or web address] Blood specimen (specimen) 05/17/2016 4:20 AM EDT 05/17/2016 4:35 AM EDT Narrative Resulting Agency Comment Spec In Lab Lashae Morrow MD CHEMISTRY ORDERABL ES [facility] [place] [address] documented in this encounter Visit Diagnoses Diagnosis [...] EDT 40 mg HYDROmorphone (DILAUDID) 1 mg/mL ARCHITECTURAL ASSOCIATE 50 mL Intravenous, ARCHITECTURAL ASSOCIATE ONLY, Starting on Sat05/16/16 at 1145, Until [...] NOT exceed 2 mg total dose. Per ARCHITECTURAL ASSOCIATE order., Recovery (Recovery-Hospital Unit), Routine ondansetron (ZOFRAN) [...] ordered, use ondansetron first, prochlorperazine second. Per ARCHITECTURAL ASSOCIATE order. , Recovery (Recovery-Hospital Unit) Given 05/16/2016 [...] ordered, use ondansetron first, prochlorperazine second. Per ARCHITECTURAL ASSOCIATE order., Recovery (Recovery-Hospital Unit), Routine sennosides (SENOKOT) [...] Pham Leal RN) HYDROmorphone (DILAUDID) 1 mg/mL ARCHITECTURAL ASSOCIATE 50 mL (CANCELED) Intravenous, ARCHITECTURAL ASSOCIATE ONLY, Starting on Sat05/16/16 at 1145, Until [...] PRN, Starting on Sat05/16/16 at 2047, Until Rbooke 05/17/16 at 1608, Itching, Routine HYDROmorphone (DILAUDID) [...] NOT exceed 2 mg total dose. Per ARCHITECTURAL ASSOCIATE order., Recovery (Recovery-Hospital Unit), Routine ondansetron (ZOFRAN) [...] ordered, use ondansetron first, prochlorperazine second. Per ARCHITECTURAL ASSOCIATE order. , Recovery (Recovery-Hospital Unit) 2149 (Given [...] ordered, use ondansetron first, prochlorperazine second. Per ARCHITECTURAL ASSOCIATE order., Recovery (Recovery-Hospital Unit), Routine sodium chloride [...] Routine documented in this encounter Care Teams Graphic Engineer Relationship Specialty Start Date End Date Vimal Xiao, GERALD [address] [place] [address] PCP - General Family Medicine 03/28/16 documented as of this encounter
--- OUTSIDE RECORDS SUMMARY | 2024-06-09 20:23 | XMS_ITS | Encounter Summary ---
[place] [address] Care Team Providers Care Web Site Manager Name Role Phone Radhika Xiao APRN Primary Care Provider [phone] Encounter Details Date Type Department Care Team (Latest Contact Info) Description 05/22/2017 9:05 AM EDT Laboratory Appointment Lab [address] [place] [id number] Disorder of iron metabolism; Status post bariatric [...] 25 OH 33 30 - 100 ng/mL [facility] be considered to be insufficient or deficient. [email or web address]/nkf-guidelines [email or web address].Apse/nejm-VitD The IDS iSYS Vitamin D Immunoassay detects both 25-OH Vitamin D2 and 25-OH Vitamin D3, but only a total Vitamin D concentration is reported. Blood specimen (specimen) 05/22/2017 10:53 AM EDT 05/22/2017 1:29 PM EDT Narrative Resulting Agency Comment Spec In Lab Dorys Rivers APRN CHEMISTRY ORDERAB LES [facility] [place] [place] [address] * Iron and TIBC (05/22/2017 10:53 AM EDT) Iron 105 45 - 160 mcg/dL [facility] TIBC 283 250 - 450 mcg/dL [facility] Iron Saturation 37 20 - 50 % [facility] Blood specimen (specimen) 05/22/2017 10:53 AM EDT 05/22/2017 10:59 AM EDT Narrative Resulting Agency Comment Spec In Lab Dorys Yatesigley FREIGHT ROUTER CHEMISTRY ORDERAB LES [facility] [place] [place] [address] * Ferritin (05/22/2017 10:53 AM EDT) [facility] Ferritin 161 30 - 400 ng/mL [facility] Comment: Pediatric reference ranges not verified at [facility], interpret with caution. Reference ranges for females greater than 50 years of age approach values for men, i.e., 30-400 ng/mL. Blood specimen (specimen) 05/22/2017 10:53 AM EDT 05/22/2017 10:59 AM EDT Narrative Resulting Agency Comment Spec In Lab Dorys Cuellar Silvestre FREIGHT ROUTER CHEMISTRY ORDERAB LES Performing Organization Address City/[facility]/ZIP Co de Phone Number [facility] [place] [place] [address] * Prealbumin (05/22/2017 10:53 AM EDT) [facility] Prealbumin 22 20 - 40 mg/dL [facility] Comment: Prealbumin levels are generally lower in the pediatric population; adult concentrations are usually attained near puberty. Blood specimen (specimen) 05/22/2017 10:53 AM EDT 05/22/2017 10:59 AM EDT Narrative Resulting Agency Comment Spec In Lab Dorys T Silvestre FREIGHT ROUTER CHEMISTRY ORDERAB LES Performing Organization Address City/[facility]/ZIP Co de Phone Number [facility] [place] [place] [address] * Hepatic Function Panel (05/22/2017 10:53 AM EDT) [facility] Protein, Total 7.0 6.1 - 8.0 gm/dL [facility] Albumin 4.3 3.2 - 5.2 gm/dL [facility] Aspartate Aminotransferase 20 0 - 39 unit/L [facility] Alanine Aminotransferase 23 0 - 55 unit/L [facility] Alkaline Phosphatase 83 40 - 120 unit/L [facility] Bilirubin, Total 0.3 0.2 - 1.3 mg/dL [facility] Bilirubin, Direct 0.1 0.0 - 0.3 mg/dL [facility] Blood specimen (specimen) 05/22/2017 10:53 AM EDT 05/22/2017 10:59 AM EDT Narrative Resulting Agency Comment Spec In Lab Dorys Rivers FREIGHT ROUTER CHEMISTRY ORDERAB LES Performing Organization Address City/State/[facility] Co de Phone Number [facility] [place] [place] [address] * Hemogram (05/22/2017 10:53 AM EDT) [facility] White Blood Cell 9.4 4.0 - 9.5 x10(3)/[facility] Red Blood Cell 4.81 4.58 - 5.54 x10(6)/[facility] Hemoglobin 15.2 13.7 - 16.5 gm/dL [facility] Hematocrit 43.8 40.5 - 48.5 % [facility] Mean Cell Volume 91.1 82.9 - 93.1 fL [facility] Mean Cell Hemoglobin 31.6 27.5 - 32.1 pg [facility] Mean Cell Hemoglobin Concentration 34.7 32.0 - 35.7 gm/dL [facility] Platelet 248 145 - 357 x10(3)/[facility] RDW Standard Deviation 39.7 36.0 - 45.0 fL [facility] RDW coefficient of variation 11.8 11.4 - 13.8 % [facility] Mean Platelet Volume 10.7 7.6 - 12.9 fL [facility] NRBC% auto 0.0 % [facility] NRBC Absolute 0.000 0.000 - 0.000 x10(3)/mcL [facility] Blood specimen (specimen) 05/22/2017 10:53 AM EDT 05/22/2017 10:59 AM EDT Narrative Resulting Agency Comment Spec In Lab Dorys Rivers FREIGHT ROUTER HEMATOLOGY ORDERA BLES [facility] [place] [place] [address] documented in this encounter Visit Diagnoses Diagnosis Disorder of iron metabolism Other disorders of iron metabolism Status post bariatric surgery Bariatric surgery status Intestinal malabsorption, unspecified type documented in this encounter Care Teams Web Site Manager Relationship Specialty Start Date End Date Radhika Xiao APRN [address] [place] [address] PCP - General Family Medicine 03/28/16 documented as of this encounter
--- OUTSIDE RECORDS SUMMARY | 2024-06-09 20:23 | XMS_ITS | Encounter Summary ---
Author Organization [facility]ly [facility] [place] [address] Care Team Providers Care Armhole Raiser Lockstitch Name Role Phone Radhika Xiao GERALD Primary Care Provider [phone] Encounter Details Date Type Department Care Team (Late st Contact Info) Description 09/03/2016 Orders Only General Surgery [facility] [place] [address] Rebeca Jiménez FUEL RETROFITTING TECHNICIAN [place] [address] Status post bariatric surgery; Intestinal malabsorption, unspecified [...] Wb (JANUARY) 194(H) 70 - 180 nmol/L [facility] Comment: ADDITIONAL INFORMATION This test was developed and its performance characteristics determined by [facility] in a manner consistent with CLIA requirements. This test has not been cleared or approved by the [place].S. Food and Drug Administration. Test Performed by: [facility] - [address] [address] Blood specimen (specimen) 12/28/2016 12:01 PM EDT 12/28/2016 2:00 PM EDT Narrative Resulting Agency Comment Spec In Lab Juan Thomas MD LAB SEND OUT ORDERAB LES [facility] [place] [address] * Comprehensive metabolic panel (non-fasting) (12/28/2016 12:01 PM EDT) Glucose 109 65 - 199 mg/dL [facility] Comment:Diabetes: >=200 mg/d L plus symptoms Blood Urea Nitrogen 16 10 - 20 mg/dL [facility] Creatinine 0.87 0.80 - 1.50 mg/dL [facility] Comment: Please note that the pediatric reference intervals supplied above were not validated at [facility]. Results from pediatric patients should be interpreted in conjunction to the patient's age, height and muscle mass. Sodium 140 135 - 145 mmol/L [facility] Potassium 4.7 3.5 - 5.0 mmol/L [facility] Comment: Please note: ??Patients with WBC >100,000 may have falsely elevated Potassium levels. ??For accurate Potassium quantification in these patients send serum separator tube (gold top) for subsequent determinations. ??Contact the Clinical Chemistry Laboratory if there are any questions. Chloride 101 98 - 107 mmol/L [facility] Carbon Dioxide 27 22 - 31 mmol/L [facility] Anion Gap 12 5 - 15 mmol/L [facility] Calcium 9.8 8.5 - 10.5 mg/dL [facility] Protein, Total 7.5 6.1 - 8.0 gm/dL [facility] Albumin 4.7 3.2 - 5.2 gm/dL [facility] Aspartate Aminotransferase 15 0 - 39 unit/L [facility] Alanine Aminotransferase 20 0 - 55 unit/L [facility] Alkaline Phosphatase 98 40 - 120 unit/L [facility] Bilirubin, Total 0.4 0.2 - 1.3 mg/dL [facility] Bilirubin, Direct 0.1 0.0 - 0.3 mg/dL [facility] Est Glomerular Filtration Rate >60 >=60 [facility] Comment: This estimated GFR (eGFR) [...] the following links into your internet browser. [email or web address] [email or web address]/DHMCnkf Blood specimen (specimen) 12/28/2016 12:01 PM EDT 12/28/2016 12:11 PM EDT Narrative Resulting Agency Comment Spec In Lab Juan Thomas MD CHEMISTRY ORDERABLES [facility] [place] [address] * Prealbumin (12/28/2016 12:01 PM EDT) Prealbumin 20 20 - 40 mg/dL [facility] Comment: Prealbumin levels are generally lower in the pediatric population; adult concentrations are usually attained near puberty. Blood specimen (specimen) 12/28/2016 12:01 PM EDT 12/28/2016 12:11 PM EDT Narrative Resulting Agency Comment Spec In Lab Juan Thomas MD CHEMISTRY ORDERABLES Performing Organization Address City/[facility]/ZIP Co de Phone Number [facility] [place] [address] * Iron and TIBC (12/28/2016 12:01 PM EDT) Iron 84 45 - 160 mcg/dL [facility] TIBC 300 250 - 450 mcg/dL [facility] Iron Saturation 28 20 - 50 % [facility] Blood specimen (specimen) 12/28/2016 12:01 PM EDT 12/28/2016 12:11 PM EDT Narrative Resulting Agency Comment Spec In Lab Juan Thomas MD CHEMISTRY ORDERABLES Performing Organization Address [facility] Co de Phone Number [facility] [place] [address] * Ferritin (12/28/2016 12:01 PM EDT) Ferritin 146 30 - 400 ng/mL [facility] Comment: Pediatric reference ranges not verified at [facility], interpret with caution. Reference ranges for females greater than 50 years of age approach values for men, i.e., 30-400 ng/mL. Blood specimen (specimen) 12/28/2016 12:01 PM EDT 12/28/2016 12:11 PM EDT Narrative Resulting Agency Comment Spec In Lab Juan Thomas MD CHEMISTRY ORDERABLES Performing Organization Address City/[facility]/ZIP Co de Phone Number [facility] [place] [address] * Folate, serum (12/28/2016 12:01 PM EDT) Folate 16.5 4.8 - 24.2 ng/mL [facility] Blood specimen (specimen) 12/28/2016 12:01 PM EDT 12/28/2016 12:11 PM EDT Narrative Resulting Agency Comment Spec In Lab Juan Thomas MD CHEMISTRY ORDERABLES Performing Organization Address City/[facility]/ZIP Co de Phone Number [facility] [place] [address] * (ABNORMAL) Vitamin B12 (12/28/2016 12:01 PM EDT) Vitamin B12 >2,000(H) 207 - 974 pg/mL [facility] Blood specimen (specimen) 12/28/2016 12:01 PM EDT 12/28/2016 12:11 PM EDT Narrative Resulting Agency Comment Spec In Lab Juan Thomas MD CHEMISTRY ORDERABLES Performing Organization Address [facility] Co de Phone Number [facility] [place] [address] * PTH (12/28/2016 12:01 PM EDT) Parathyroid Hormone 39 15 - 65 pg/mL [facility] Blood specimen (specimen) 12/28/2016 12:01 PM EDT 12/28/2016 12:11 PM EDT Narrative Resulting Agency Comment Spec In Lab Juan Thomas MD CHEMISTRY ORDERABLES Performing Organization Address [facility] Co de Phone Number [facility] [place] [address] * Vitamin D, 25-Hydroxy (12/28/2016 12:01 PM EDT) Vitamin D Total 25 OH 42 30 - 100 ng/mL [facility] [...] be considered to be insufficient or deficient. [email or web address]/DHMCnatlkidneyfoundation [email or web address]://[facility]itD The IDS iSYS Vitamin D Immunoassay detects both 25-OH Vitamin D2 and 25-OH Vitamin D3, but only a total Vitamin D concentration is reported. Blood specimen (specimen) 12/28/2016 12:01 PM EDT 12/28/2016 1:52 PM EDT Narrative Resulting Agency Comment Spec In Lab Juan Thomas MD CHEMISTRY ORDERABLES Performing Organization Address City/[facility] Co de Phone Number [facility] [place] [address] documented in this encounter Visit Diagnoses Diagnosis Status post bariatric surgery Bariatric surgery status Intestinal malabsorption, unspecified type Vitamin D deficiency Unspecified vitamin D deficiency Iron deficiency anemia, unspecified iron deficiency anemia type documented in this encounter Care Teams Armhole Raiser Lockstitch Relationship Specialty Start Date End Date Radhika Xiao, GERALD [address] [place] [address] PCP - General Family Medicine 03/28/16 documented as of this encounter
--- OUTSIDE RECORDS SUMMARY | 2024-06-09 20:23 | XMS_ITS | Encounter Summary ---
[place] [address] Care Team Providers Care Construction Analyst Name Role Phone Radhika Xiao APRN Primary Care Provider Encounter Details Date Type Department Care Team (Late st Contact Info) Description 04/13/2016 Telephone [place] [phone] Evette Adler Social History Tobacco Use Types [...] on filedocumented in this encounter Care Teams Construction Analyst Relationship Specialty Start Date End Date Radhika Xiao, CLAY DRY PRESS HELPER [address] [place] [address] PCP - General Family Medicine 03/28/16 documented as of this encounter
--- OUTSIDE RECORDS SUMMARY | 2024-06-09 20:23 | XMS_ITS | Encounter Summary ---
Author Organization [place] [address] Care Team Providers Care Sawmill Relief Worker Name Role Phone Radhika Xiao APRN Primary Care Provider [phone] Encounter Details Date Type Department Care Team (Late st Contact Info) Description 10/21/2017 Telephone [place] [phone] Evette Adler Social History Tobacco Use Types [...] on filedocumented in this encounter Care Teams Sawmill Relief Worker Relationship Specialty Start Date End Date Radhika Xiao, CARBIDER [address] [place] [address] PCP - General Family Medicine 03/28/16 documented as of this encounter
--- OUTSIDE RECORDS SUMMARY | 2024-06-09 20:23 | XMS_ITS | Encounter Summary ---
[facility] Organization [facility] [place] [address] Care Team Providers Care Mail Carrier Technician Name Role Phone Radhika Xiao GERALD Primary Care Provider [phone] Reason for Visit * Reason Comments Follow-up Encounter Details Date Type Department Care Team (Late st Contact Info) Description 11/20/2017 8:30 AM EST Office [place] [address] Bonnie Singh, INSTRUMENTAL MUSICIAN [facility] [address] [address] [facility] [place] [address] Status post bariatric surgery; Disorder of iron [...] Watts, RD - 11/20/2017 8:30 AM EST [facility] Admin coordinator Jenny: [phone] Dietitian: [phone] Surgeons/ nurse practitioner: [phone] Nurse line: [phone] Testing: Labwork: Today. Go to [facility], which is 1 flight below the General Surgery Clinic. ?? Please note that labwork results from non-[facility] labs take longer to get results. Please remind the cardiac cath lab manager that certain test tubes need to be protected from light, as indicated on the requisition.It is often difficult to track results done elswhere, and you can expect a processing delay. Havinglabwork done elsewhere makes trending of lab testing difficult. ?? Given the high volume of lab requests done at non-[facility] facilities, copies of labwork are no longer sent, given the significant expenditure of time ordering and copying outside lab results. Copies of the lab results are scanned in your [facility] medical record, and can be viewed under [...] visit today is sent to your primary memory care program director Next visit: Routine visits are done at 4.8,12, 18 and 24 months after surgery, and yearly thereafter. Please call [phone] if you do not receive an appointment [...] Pal, Lose It, My Plate Internet resources: www.TheraCoat www.ReClaims www.bariatriceaKohort.[employer] www.Ticketbis/blog [facility] facebook page: https://www.facebook.com/[facility]AM[facility]ariatricSurgery Books & Magazines: - Recipes for Life After Weight Loss Surgery by Nelda Wahl - Shrink Yourself by Dr Aleksandr Arriaza - Eating Well - www.TheSedge.org - Cooking Light- www.LiquidHub.[employer] documented in this encounter Progress Notes * Bonnie Singh, INSTRUMENTAL MUSICIAN - 11/20/2017 8:30 AM EST Reason for [...] is with their 5th child. Compliance with [facility] follow up: good Attendance at [facility] post-operative graduate support group meetings: none Pre-op 03/28/16 Wt (lbs) 408# BMI 57.3 Visit #2 WT: 04/04/16: 403# HT: 5'10.75 Intro: 06/17/2015 ? Post-op ? %EBW lost Supplement compliance Labwork 06/06/2016 361.2# 50.72 19.1 -Enola 1 BID -Fe SO4 325 mg qd --Vitamin C 500 mg qd - ca cit w/vit D 1 chew BID -B12 SL 500 mcg qd ?08/31/2016 ??316.13 ??44.5 ??37.6 ??Good. -MVI 1 tab qd -BA Ca Cit 1 chew BID -B12 SL 500 mcg qd -Ferrous Sulfate 325 mg qd w/vit C 500 mg qd 08/31: Hg 13.6 Hct 40.7 [id number] iron 29 sat 11% B12 1820 Nl B1 fol CMP PTH 55 D 27 prealbumin 17 A1c 5.4 12/26/16 285 40.03 53 -MVI 1 tab qd -BA Ca Citrate 1 chew BID -B12 SL 500 mcg qd -Fe Lw0266 mg w/vit C 500 mg BID 12/28: [...] iron screen 11/20/2017 284 39.9 54 See ekg monitor note Pending today; lipids, A1C, iron studies, [...] surgery, was intolerant had repeat PSG at [facility] in April. PSG 03/29/15 at wt 386#, [...] 03/30/16: IgA 142; TTg IgA Ab <1.2 --custodial blood donor-double red cell donor, usually every [...] performed by Julia Ashraf MD at [facility] ENDOSCOPY ?? at [facility] MAIN OR ??? PRO UPPER GI ENDOSCOPY, BIOPSY N/A 04/04/2016 ?? UPPER GASTROINTESTINAL ENDOSCOPY,WITH BIOPSY SINGLE OR MULTIPLE performed by Julia Ashraf MD at [facility] END[facility]COPY ??? PRO UPPER GI ENDOSCOPY, DIAGNOSTIC N/A 04/04/2016 ?? EGD, UPPER GI ENDOSCOPY performed by Julia Ashraf MD at [facility] ?? 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 Likes his [...] today, reviewed dietary and supplements indetail with ekg monitor. Will follow up with results and adjust [...] he reports he did follow up at [facility] and reports sleeping well, just doesn't have [...] will be advised of lab results via [facility] RECOMMENDED BARIATRIC SURGERY PROGRAM POSTOPERATIVE FOLLOW-UP: Follow [...] If labwork is done by the primary memory care program director: pleasesend a copy to the Bariatric Surgery Program, General Surgery Clinic, [facility], attention Dorys Rivers APRN. Questions regarding [facility] Bariatric Surgery Program patients: please call Abiodun Rivers APRN at [phone] or [phone] beeper [phone]. E-mail: [email or web address] & Duck * Arabella Watts, RD - 11/20/2017 8:30 [...] . 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 Lives with girlfriend [...] 11/20/17 284# 54% 39.9 18 months post-op [place] Body Weight (based on BMI of 25): 174# Excess Weight: 218# 50-70% Excess Weight Loss: 230-285# MEDICATIONS: Vitamin/Mineral Supplements (reported by patient): Supplement Type Brand/Form Dosage/Amount Frequency Comments Multivitamin Men's MVM 1 daily Calcium Calculates dietary sources and feels he's meeting 8534-7556 mg daily Vitamin B12 pill 500 mcg [...] grams per day: ~80 Calories per day: 2110-6670 Hydrating fluids- oz/ day: 64 oz water [...] 10:12 am) PATIENT INFO: ID #: ? [id number] ?: ??[birth year] (37 yrs) Name: ? KONSTANTIN Ventura KRISTOPHER ?Visit Date: 12/27/2017 09:57 am PERFORMED BY: Performed By: ? Pham Chambers RDMS Attending: ?Sada PAUL, Nakia Erickson Referred By: ?BONNIE SINGH Location: ? [place] SERVICE(S) PROVIDED: ??[facility] - Abdominal Complete Survey - [id number] INDICATIONS: ??abdominal pain, right upper quadrant and [...] 12/27/2017 10:12 am) PATIENT INFO: ID #: [id number] : [birth year] (37 yrs) Name: KONSTANTIN SUMMERS Visit Date: 12/27/2017 09:57 am PERFORMED BY: Performed By: Pham Chambers RDMS Attending: Nakia Tomlin MD Referred By: BONNIE SINGH Location: [place] SERVICE(S) PROVIDED: [facility] - Abdominal Complete Survey - [id number] INDICATIONS: abdominal pain, right upper quadrant and [...] EST) Folate 17.1 4.8 - 24.2 ng/mL [facility] Blood specimen (specimen) 11/20/2017 9:45 AM EST 11/20/2017 9:52 AM EST Narrative Resulting Agency Comment Spec In Lab Bonnie Lorenzo Singh APRN CHEMISTRY ORDERABLES Performing Organization Address [facility]/ZIP Co de Phone Number [facility] [place] [address] * (ABNORMAL) Vitamin B12 (11/20/2017 9:45 AM EST) [facility] Signature Vitamin B12 >2,000(H) 232 - 1,245 pg/mL [facility] Comment: Please note: Effective 08/14/2017, the reference interval and the lower limit of detection for Vitamin B12 have been updated due to a new reagent formulation. Blood specimen (specimen) 11/20/2017 9:45 AM EST 11/20/2017 9:52 AM EST Narrative Resulting Agency Comment Spec In Lab Bonnie Lorenzo Singh APRN CHEMISTRY ORDERABLES Performing Organization Address City/[facility]/ZIP Co de Phone Number [facility] [place] [address] * (ABNORMAL) Vitamin B1, whole blood (11/20/2017 9:45 AM EST) Vit B1 Lvl Wb (JANUARY) 191(H) 70 - 180 nmol/L [facility] Comment: ADDITIONAL INFORMATION This test was developed and its performance characteristics determined by [facility] in a manner consistent with CLIA requirements. This test has not been cleared or approved by the U.S. Food and Drug Administration. Test Performed by: [facility] [address] [place] [address] Blood specimen (specimen) 11/20/2017 9:45 AM EST 11/20/2017 12:27 PM EST Narrative Resulting Agency Comment Spec In Lab Bonnie Singh APRN LAB SEND OUT ORDERAB LES Performing Organization Address City/[facility]/ZIP Co de Phone Number [facility] [place] [address] * Vitamin D, 25-Hydroxy (11/20/2017 9:45 AM EST) Vitamin D Total 25 OH 32 30 - 100 ng/mL [facility] [...] be considered to be insufficient or deficient. http://Mobile Safe Case.[employer]/nkf-guidelines http://Mobile Safe Case.[employer]/nejm-VitD The IDS iSYS Vitamin D Immunoassay detects both 25-OH Vitamin D2 and 25-OH Vitamin D3, but only a total Vitamin D concentration is reported. Blood specimen (specimen) 11/20/2017 9:45 AM EST 11/20/2017 2:08 PM EST Narrative Resulting Agency Comment Spec In Lab Bonnie Singh APRN CHEMISTRY ORDERABLES Performing Organization Address [facility]/ZIP Co de Phone Number [facility] [place] [address] * Ferritin (11/20/2017 9:45 AM EST) Ferritin 65 30 - 400 ng/mL [facility] Comment: Pediatric reference ranges not verified at [facility], interpret with caution. Reference ranges for females greater than 50 years of age approach values for men, i.e., 30-400 ng/mL. Blood specimen (specimen) 11/20/2017 9:45 AM EST 11/20/2017 9:52 AM EST Narrative Resulting Agency Comment Spec In Lab Bonnie Singh INSTRUMENTAL MUSICIAN CHEMISTRY ORDERABLES Performing Organization Address City/[facility]/ZIP Co de Phone Number [facility] [place] [address] * Iron and TIBC (11/20/2017 9:45 AM EST) [facility] Iron 83 45 - 160 mcg/dL [facility] TIBC 319 250 - 450 mcg/dL [facility] Iron Saturation 26 20 - 50 % [facility] Blood specimen (specimen) 11/20/2017 9:45 AM EST 11/20/2017 9:53 AM EST Narrative Resulting Agency Comment Spec In Lab Bonnie Singh INSTRUMENTAL MUSICIAN CHEMISTRY ORDERABLES Performing Organization Address City/[facility]/ZIP Co de Phone Number [facility] [place] [address] * Hemoglobin A1c (11/20/2017 9:45 AM EST) [facility] Hemoglobin A1c 5.1 4.3 - 5.6 % [facility] Comment: Reference Range: 4.3 [...] Mellitus, Diabetes Care 2013; 36: Suppl. 1, K67-58 Estimated Average Glucose 100 mg/dL [facility] Comment: eAG equivalents for HbA1c [...] into estimated average glucose values. ??Diabetes Care 2008:31(8):2663-5043. Blood specimen (specimen) 11/20/2017 9:45 AM EST 11/20/2017 9:52 AM EST Narrative Resulting Agency Comment Spec In Lab Bonnie Singh APRN CHEMISTRY ORDERABLES [facility] [place] [address] * Lipid Panel (11/20/2017 9:45 AM EST) Cholesterol, Total 163 mg/dL [facility] Comment: Lower Risk: <200 mg/dL Average Risk: 200-239 mg/dL Higher Risk: >qm=612 mg/dL Triglyceride 79 mg/dL [facility] Comment: Average Risk/Lower Risk: <150 mg/dL Borderline High Risk: 150-199 mg/dL High Risk: 200-499 mg/dL Very High Risk: >gs=060 mg/dL HDL Cholesterol 43 mg/dL [facility] Comment: Males: ?? Higher Risk: <40 mg/dL Females: ?? HIgher Risk: <50 mg/dL LDL Cholesterol 104 mg/dL [facility] Comment: Lowest Risk: <100 mg/dL Lower Risk: 100-129 mg/dL Borderline High Risk: 130-159 mg/dL High Risk: 160-189 mg/dL Very High Risk: >dj=507 mg/dL Cholesterol/HDL Ratio 3.8 ratio [facility] Lipid Interpretation See Note [facility] Comment: Lipid management should be guided by a patient? s ASCVD risk, goals and preferences. ACC/AHA Guidelines recommend high intensity statin if clinical ASCVD or LDL greater than or equal to 190 mg/dL. http://Mobile Safe Case.[employer]/CNR-EYP-Iadyqeudt Adults aged 40-75 with LDL 70-189 mg/dL should have their 10 year ASCVD risk estimated with the ACC/AHA ASCVD risk utilities estimator and drafter http://tools.acc.org/MSHIF-Mrlb-Cttmnrpjx/ Statin should be discussed if risk greater [...] In Lab Bonnie Singh APRN CHEMISTRY ORDERABLES [facility] [place] [address] * Prealbumin (11/20/2017 9:45 AM EST) Prealbumin 24 20 - 40 mg/dL [facility] Comment: Prealbumin levels are generally lower in the pediatric population; adult concentrations are usually attained near puberty. Blood specimen (specimen) 11/20/2017 9:45 AM EST 11/20/2017 9:52 AM EST Narrative Resulting Agency Comment Spec In Lab Bonnie Singh GERALD CHEMISTRY ORDERABLES [facility] [place] [address] * (ABNORMAL) Comprehensive metabolic panel (non-fasting) (11/20/2017 9:45 AM EST) Glucose 88 65 - 199 mg/dL [facility] Comment:Diabetes: >=200 mg/d L plus symptoms Blood Urea Nitrogen 16 10 - 20 mg/dL [facility] Creatinine 0.95 0.80 - 1.50 mg/dL [facility] Sodium 140 135 - 145 mmol/L [facility] Potassium 4.0 3.5 - 5.0 mmol/L [facility] Comment: Please note: ??Patients with WBC >100,000 may have falsely elevated Potassium levels. ??For accurate Potassium quantification in these patients send serum separator tube (gold top) for subsequent determinations. ??Contact the Clinical Chemistry Laboratory if there are any questions. Chloride 98 98 - 107 mmol/L [facility] Carbon Dioxide 28 22 - 31 mmol/L [facility] Anion Gap 14 5 - 15 mmol/L [facility] Calcium 8.9 8.5 - 10.5 mg/dL [facility] Protein, Total 6.9 6.1 - 8.0 gm/dL [facility] Albumin 4.4 3.2 - 5.2 gm/dL [facility] Aspartate Aminotransferase 41(H) 0 - 39 unit/L [facility] Alanine Aminotransferase 68(H) 0 - 55 unit/L [facility] Alkaline Phosphatase 82 40 - 120 unit/L [facility] Bilirubin, Total 0.2 0.2 - 1.3 mg/dL [facility] Est Glomerular Filtration Rate >60 >=60 [facility] Comment: The reported eGFR should be multiplied by 1.2 for patients. The MDRD is not an appropriate measure of renal function for patients with body mass extremes or in patients with acute kidney failure. http://Karma Snap/DHnkdep http://Karma Snap/DHMCnkf Blood specimen (specimen) 11/20/2017 9:45 AM EST 11/20/2017 9:53 AM EST Narrative Resulting Agency Comment Spec In Lab Bonnie Singh APRN CHEMISTRY ORDERABLES Performing Organization Address City/State/[facility] Co de Phone Number [facility] [place] [address] * (ABNORMAL) Hemogram (11/20/2017 9:45 AM EST) White Blood Cell 7.6 4.0 - 9.5 x10(3)/mc L [facility] Red Blood Cell 4.50(L) 4.58 - 5.54 x10(6)/mc L [facility] Hemoglobin 14.1 13.7 - 16.5 gm/dL [facility] Hematocrit 41.7 40.5 - 48.5 % [facility] Mean Cell Volume 92.7 82.9 - 93.1 fL [facility] Mean Cell Hemoglobin 31.3 27.5 - 32.1 pg [facility] Mean Cell Hemoglobin Concentration 33.8 32.0 - 35.7 gm/dL [facility] Platelet 251 145 - 357 x10(3)/mc L [facility] RDW Standard Deviation 39.8 36.0 - 45.0 fL [facility] RDW coefficient of variation 11.7 11.4 - 13.8 % [facility] Mean Platelet Volume 9.9 7.6 - 12.9 fL [facility] NRBC% auto 0.0 % [facility] NRBC Absolute 0.000 0.000 - 0.000 x10(3)/mc L [facility] Blood specimen (specimen) 11/20/2017 9:45 AM EST 11/20/2017 9:52 AM EST Narrative Resulting Agency Comment Spec In Lab Bonnie Lorenzo Singh INSTRUMENTAL MUSICIAN HEMATOLOGY ORDERABLE S Performing Organization Address City/State/[facility] Co de Phone Number [facility] [place] [address] documented in this encounter Visit Diagnoses Diagnosis [...] specified documented in this encounter Care Teams Mail Carrier Technician Relationship Specialty Start Date End Date Radhika Xiao APRN [address] [place] [address] PCP - General Family Medicine 03/28/16 documented as of this encounter
--- OUTSIDE RECORDS SUMMARY | 2024-06-09 20:23 | XMS_ITS | Encounter Summary ---
Author Organization [facility] [place] [address] Care Team Providers Care Head Resident Name Role Phone Radhika Xiao APRN Primary [...] Expiration Date Visits Re quested Visits Authorized [id number] 1 1 Encounter Details Date Type Department Care Team (Late st Contact Info) Description 05/16/2016 7:30 AM EDT Anesthesia Event [place] [id number] Nasir Najera MD [facility] [place] [address] Anesthesia Record Procedure Summary Procedure Name Responsible [...] 0637; median vein right (underside of arm); [id number]-[id number] catheter system; 18 gauge, 3/4 in length; [...] Najera MD - 05/16/2016 3:08 PM EDT [facility] Department of Anesthesiology Post-procedure Note Patient: Konstantin Hickey Procedure Summary Date Anesthesia Start Anesthesia Stop Room / Location 05/16/16 0730 1146 [facility] OR 26 / [facility] MAIN OR Procedure Diagnosis Surgeon Responsible Provider @LAPAROSCOPIC GASTROPLASTY, (N/A Abdomen); ENDOSCOPY, UPPER GI, DIAGNOSTIC, WITH OR WITHOUT SPECIMENS (N/A Abdomen) (OBESITY) Juan Thomas MD Sites, Brian D, MD All Anesthesia Providers: Anesthesiologist: Nasir Najera MD Graphics Edit Technician: Shashank Pickard DO Last (1hr) Vitals: BP 128/69 (05/16/16 1500) Temp Pulse 92 (05/16/16 1500) Resp 21 (05/16/16 1500) SpO2 95 % (05/16/16 1500) Patient Location: PACU/[facility] Level of Consciousness: Lethargic Pain Management: Satisfactory [...] Surgery Program 1. Attended Introduction to the [facility] Bariatric Surgery Program seminar, a comprehensive two hour meeting that provides a program overview, education on bariatric surgeries offered at [facility], risks andbenefits, as well as patient expectations and follow up: 06/17/15 [facility]SP Educational seminars viewed: Grades on post-testin%;100%; 100% The [facility] Educational Handbook is provided at preoperative visit #1. 2. Pre-operative programmatic evaluations required: PCP evaluation and letter of support to proceedwith surgery, [facility] labwork (can be done on day of visit #1) and psychological evaluation- minimum of2 visits. 3. Bariatric Surgery Program evaluations with RD and PHOTOGRAVURE PRESS OPERATOR: Not scheduled 4. Weight history: 11/09/09- 390.9#; [...] ENDOSCOPY performed by Julia Ashraf MD at [facility] ENDOSCOPY ??? Pro colonoscopy, diagnostic N/A 04/04/2016 COLONOSCOPY, DIAGNOSTIC performed by Julia Ashraf MD at [facility] ENDOSCOPY ??? Pro upper gi endoscopy, biopsy N/A 04/04/2016 UPPER GASTROINTESTINAL ENDOSCOPY,WITH BIOPSY SINGLE OR MULTIPLE performed by Julia Ashraf MD at [facility] ENDOSCOPY Social History Substance Use Topics ??? [...] mg documented in this encounter Care Teams Head Resident Relationship Specialty Start Date End Date Radhika Xiao, MOLD CAPPER HELPER [address] [place] [address] PCP - General Family Medicine 03/28/16 documented as of this encounter
--- OUTSIDE RECORDS SUMMARY | 2024-06-09 20:24 | XMS_ITS | Encounter Summary ---
[place] [address] Care Team Providers Care Senior Relationship Manager Name Role Phone Marti Watkins APRN Primary Care Provider [phone] Encounter Details Date Type Department Care Team (Late st Contact Info) Description 03/20/2016 Telephone [place] [phone] Evette Adler Social History Tobacco Use Types [...] on filedocumented in this encounter Care Teams Senior Relationship Manager Relationship Specialty Start Date End Date Marti Watkins APRN [address] [place] [address] PCP - General 12/01/13 03/27/16 documented as of this encounter
--- OUTSIDE RECORDS SUMMARY | 2024-06-09 20:24 | XMS_ITS | Encounter Summary ---
Author Organization [facility] Address [facility] [place] [address] Care Team Providers Care Alumina Refinery Operator Name Role Phone Radhika Xiao APRN [...] Expiration Date Visits Re quested Visits Authorized [id number] 1 1 Encounter Details Date Type Department Care Team (Latest Contact Info) Description 04/04/2016 12:10 PM EDT - 04/04/2016 5:35 PM EDT Hospital Encounter [place] [address] Konstantin Mendez MD [facility] [place] [address] Discharge Disposition: Home Social History Tobacco Use [...] - 04/04/2016 4:19 PM EDT Please call [phone] before 8pm with problems, questions or concerns, after 5pm call the Hospital at [phone] and ask to speak to the Charge Account Authorizer extension worker and the cutting table operator will contact that person for you. [...] through Care Everywhere. * COLONOSCOPY : POST-OP (MALDIVIAN) * EGD (UPPER ENDOSCOPY) : POST-OP (MALDIVIAN) documented in this encounter Medications at Time [...] Reported on 12/28/2016 3 03/01/2016 12/28/2016 Glucosamine &[id number] 180-433-91-0.5 mg Tablet Take 1 tablet by mouth [...] Electronically signed by: Orlando Cantor Gastroenterology Fellow [facility] Pager [phone] 04/04/2016 documented in this encounter Plan of [...] Report (04/04/2016 3:56 PM EDT) Final Diagnosis [id number] ? Location: 4T; 05; A The signing [...] ng: (T1) ??ksb 04/09/2016 4:16 PM EDT [facility] GI Biopsy 04/04/2016 3:56 PM EDT 04/04/2016 3:56 PM EDT GI Biopsy 04/04/2016 3:56 PM EDT 04/04/2016 3:56 PM EDT GI Biopsy 04/04/2016 3:56 PM EDT 04/04/2016 3:56 PM EDT Julia Ashraf MD PATHOLOGY/[place] [address] * Specimen to Pathology (surgical or derm) (04/04/2016 3:56 PM EDT) AP Specimen 04/04/2016 3:56 PM EDT 04/04/2016 3:57 PM EDT Narrative [facility] - 04/04/2016 3:57 PM EDT Specimen requisition ordered. ??Separate Pathology report to follow Julia Ashraf MD PATHOLOGY/CYTOLOGY O [place] Performing Organization Address City/[facility]/[place] [address] * Specimen to Pathology (surgical or derm) (04/04/2016 3:56 PM EDT) AP Specimen 04/04/2016 3:56 PM EDT 04/04/2016 3:57 PM EDT Narrative [facility] - 04/04/2016 3:56 PM EDT Specimen requisition ordered. ??Separate Pathology report to follow Julia Ashraf MD PATHOLOGY/CYTOLOGY [place] Performing Organization Address City/[facility]/[place] [address] * Specimen to Pathology (surgical or derm) (04/04/2016 3:56 PM EDT) AP Specimen 04/04/2016 3:56 PM EDT 04/04/2016 3:56 PM EDT Narrative [facility] - 04/04/2016 3:56 PM EDT Specimen requisition ordered. ??Separate Pathology report to follow Julia Ashraf MD PATHOLOGY/[place] [address] * COLONOSCOPY (04/04/2016 2:45 PM EDT) COLONOSCOPY [facility] Endoscopy Patient Name: Konstantin Hickey ? Procedure Date: 04/04/2016 2:45 PM ? Date of : 1980 ? Age: 35 ? Order #: [id number] ? Procedure: ? Colonoscopy Indications: ? Iron deficiency anemia Providers: ? Julia Ashraf, Francesca Lopez, BERRY, ? Shavon Disla, Frit Burner, Orlando ? MD Devaughn Referring MD: ?Radhika [...] (04/04/2016 2:44 PM EDT) UPPER GI ENDOSCOPY [facility] Endoscopy Patient Name: Konstantin Hickey ? Procedure Date: 04/04/2016 2:44 PM ? Date of : 1980 ? Age: 35 ? Order #: [id number] ? Procedure: ? Upper GI endoscopy Indications: ? Iron deficiency anemia Providers: ? Julia Ashraf, Francesca Lopez, RN, ? Shavon Disla, Frit Burner, Orlando ? MD Devaughn, Maira Mendoza, ? [...] CRNA) documented in this encounter Care Teams Alumina Refinery Operator Relationship Specialty Start Date End Date Radhika Xiao, CHOPPER FEEDER [address] [place] [address] PCP - General Family Medicine 03/28/16 documented as of this encounter
--- OUTSIDE RECORDS SUMMARY | 2024-06-09 20:24 | XMS_ITS | Encounter Summary ---
Author Organization [facility] [place] [address] Care Team Providers Care Soft Metals Hand Engraver Name Role Phone Marti Watkins BLEACH BOILER PACKER Primary Care Provider [phone]- [phone] Encounter Details Date Type Department Care Team (Late st Contact Info) Description 10/25/2015 Telephone [place] [phone] Arabella Watts, RD [facility] [place] [address] Social History Tobacco Use Types Packs/Day Years [...] sent the following email to Konstantin via [employer]. Good morning Konstantin, I received your information [...] on filedocumented in this encounter Care Teams Soft Metals Hand Engraver Relationship Specialty Start Date End Date Marti Watkins, GERALD [facility] [address] [place] [address] PCP - General 12/01/13 03/27/16 documented as of this encounter
--- OUTSIDE RECORDS SUMMARY | 2024-06-09 20:24 | XMS_ITS | Encounter Summary ---
Author Organization [facility] [place] [address] Care Team Providers Care Icu Registered Nurse Name Role Phone PatrickMarti calhoun Rafia DUARTE Primary Care Provider [phone]- [phone] Encounter Details Date Type Department Care Team (Late st Contact Info) Description 02/21/2016 Telephone General Surgery at [facility] [place] [phone] Rebeca Jiménez ASSURANCE SPECIALIST [facility] [place] [address] Social History Tobacco Use Types Packs/Day Years [...] on filedocumented in this encounter Care Teams Icu Registered Nurse Relationship Specialty Start Date End Date Marti Watkins APRN [facility] [address] [place] [address] PCP - General 12/01/13 03/27/16 documented as of this encounter
--- OUTSIDE RECORDS SUMMARY | 2024-06-09 20:24 | XMS_ITS | Encounter Summary ---
[place] [address] Care Team Providers Care Director Of Intercollegiate Athletics Name Role Phone Marti Watkins IMPROVEMENT SPECIALIST Primary Care Provider [phone]- [phone] Encounter Details Date Type Department Care Team (Late st Contact Info) Description 02/20/2016 Telephone [place] [phone] Evette Adler Social History Tobacco Use Types [...] sent his dietary notes to Betzy through [facility]. I told him that I would check in with Betzy tomorrow and give him a call after 2pm to let him know where he is in the program. documented in this encounter Plan of Treatment Not on file documented as of this encounter Visit Diagnoses Not on filedocumented in this encounter Care Teams Director Of Intercollegiate Athletics Relationship Specialty Start Date End Date Marti Watkins APRN [facility] [address] [place] [address] PCP - General 12/01/13 03/27/16 documented as of this encounter
--- OUTSIDE RECORDS SUMMARY | 2024-06-09 20:24 | XMS_ITS | Encounter Summary ---
[place] [address] Care Team Providers Care Juvenile Justice Specialist Name Role Phone JoRadhika castro GERALD Primary Care Provider [phone] Reason for Referral * Consultation (Routine) - Closed Specialty Diagnoses / Procedures Referred By Contkelly t Referred To Contact Gastroenterology Diagnoses Gastroesophageal reflux disease, esophagitis presence not specified Iron deficiency anemia, unspecified iron deficiency anemia type Preop testing Rebeca Jiménez APR[place] [address] [facility] [place] [address] Referral ID Status Reason Start Date Expiration Date V isits Requested Visits Authorized [id number] Closed Test Only 03/30/2016 03/30/2017 1 1 Encounter Details Date Type Department Care Team (Late st Contact Info) Description 03/30/2016 Orders [place] [address] Rebcea Jiménez [facility] [place] [address] Gastroesophageal reflux disease, esophagitis presence not [...] unspecified documented in this encounter Care Teams Juvenile Justice Specialist Relationship Specialty Start Date End Date Radhika Xiao, CHANGE CONTROL ANALYST [address] [place] [address] PCP - General Family Medicine 03/28/16 documented as of this encounter
--- OUTSIDE RECORDS SUMMARY | 2024-06-09 20:24 | XMS_ITS | Encounter Summary ---
[place] [address] Care Team Providers Care Circuit Board Inspector Name Role Phone Marti Watkins APRN Primary Care Provider [phone]- [phone] Reason for Visit * Reason Comments Skin Check Encounter Details Date Type Department Care Team (Late st Contact Info) Description 12/22/2013 11:15 AM EDT Office Visit Dermatology at [address] [address] Bridger Armijo MD [address] [facility] [place] [address] Acrochordon (Primary Dx) Social History Tobacco Use [...] skin documented in this encounter Care Teams Circuit Board Inspector Relationship Specialty Start Date End Date Marti Watkins, [facility] [address] [place] [address] PCP - General 12/01/13 03/27/16 documented as of this encounter
--- OUTSIDE RECORDS SUMMARY | 2024-06-09 20:24 | XMS_ITS | Encounter Summary ---
Author Organization [facility] [place] [address] Care Team Providers Care Rn Heart Name Role Phone RolandMarti Rafia DUARTE Primary Care Provider [phone]- [phone] Encounter Details Date Type Department Care Team (Late st Contact Info) Description 03/20/2016 Orders Only General Surgery at [facility] [place] [address] Rebeca Jiménez SALES REPRESENTATIVE [employer] [facility] [place] [address] Morbid obesity with BMI of 50.0-59.9, adult; [...] Stimulating Hormone 3.15 0.27 - 4.20 mcIU/mL [facility] Blood specimen (specimen) 03/28/2016 7:16 AM EDT 03/28/2016 7:31 AM EDT Narrative Resulting Agency Comment Spec In Lab Juan Thomas MD CHEMISTRY ORDERABLES [facility] [place] [address] * Uric acid (03/28/2016 7:16 AM EDT) Uric Acid 7.8 3.5 - 8.5 mg/dL [facility] Blood specimen (specimen) 03/28/2016 7:16 AM EDT 03/28/2016 7:31 AM EDT Narrative Resulting Agency Comment Spec In Lab Juan Thomas MD CHEMISTRY ORDERABLES Performing Organization Address City/[facility] Co de Phone Number [facility] [place] [address] * Folate, serum (03/28/2016 7:16 AM EDT) Folate 11.7 4.6 - 34.8 ng/mL [facility] Blood specimen (specimen) 03/28/2016 7:16 AM EDT 03/28/2016 7:31 AM EDT Narrative Resulting Agency Comment Spec In Lab Juan Thomas MD CHEMISTRY ORDERABLES Performing Organization Address [facility]/ZIP Co de Phone Number [facility] [place] [address] * Vitamin B12 (03/28/2016 7:16 AM EDT) Vitamin B12 678 207 - 974 pg/mL [facility] Blood specimen (specimen) 03/28/2016 7:16 AM EDT 03/28/2016 7:31 AM EDT Narrative Resulting Agency Comment Spec In Lab Juan Thomas MD CHEMISTRY ORDERABLES Performing Organization Address City/[facility]/ZIP Co de Phone Number [facility] [place] [address] * Vitamin B1, whole blood (03/28/2016 7:16 AM EDT) Vit B1 Lvl Wb (JANUARY) 127 70 - 180 nmol/L [facility] Comment: Test Performed by: [facility] [address], [place] [address] Human Service Technician: Rachel Pena, Ph.D. Blood specimen (specimen) 03/28/2016 7:16 AM EDT 03/28/2016 9:20 AM EDT Narrative Resulting Agency Comment Spec In Lab Juan Thomas MD LAB SEND OUT ORDERAB LES Performing Organization Address City/[facility]/ZIP Co de Phone Number [facility] [place] [address] * VIT D Total Evaluation (03/28/2016 7:16 AM EDT) Vitamin D Total 25 OH 31 30 - 100 ng/mL [facility] [...] be considered to be insufficient or deficient. http://[employer]/[facility] TULSAnatlkidneyfoundation http://[employer]/DHVitD The [employer] Vitamin D Immunoassay detects both 25-OH Vitamin D2 and 25-OH Vitamin D3, but only a total Vitamin D concentration is reported. Blood specimen (specimen) 03/28/2016 7:16 AM EDT 03/28/2016 7:31 AM EDT Narrative Resulting Agency Comment Spec In Lab Juan Thomas MD CHEMISTRY ORDERABLES Performing Organization Address [facility] Co de Phone Number [facility] [place] [address] * PTH (03/28/2016 7:16 AM EDT) Parathyroid Hormone 32 15 - 65 pg/mL [facility] Blood specimen (specimen) 03/28/2016 7:16 AM EDT 03/28/2016 7:31 AM EDT Narrative Resulting Agency Comment Spec In Lab Juan Thomas MD CHEMISTRY ORDERABLES Performing Organization Address [facility] Co de Phone Number [facility] [place] [address] * Vitamin A (03/28/2016 7:16 AM EDT) [facility] Vitamin A (JANUARY) 40.5 32.5 - 78.0 mcg/dL [facility] Comment: Test Performed by: [facility] [address], [place] [address] Human Service Technician: Rachel Pena, Ph.D. Blood specimen (specimen) 03/28/2016 7:16 AM EDT 03/28/2016 9:18 AM EDT Narrative Resulting Agency Comment Spec In Lab Juan Thomas MD LAB SEND OUT ORDERAB LES Performing Organization Address [facility] Co de Phone Number [facility] [place] [address] * Ferritin (03/28/2016 7:16 AM EDT) [facility] Ferritin 42 30 - 400 ng/mL [facility] Comment: Pediatric reference ranges not verified at [facility], interpret with caution. Reference ranges for females greater than 50 years of age approach values for men, i.e., 30-400 ng/mL. Blood specimen (specimen) 03/28/2016 7:16 AM EDT 03/28/2016 7:31 AM EDT Narrative Resulting Agency Comment Spec In Lab Juan Thomas MD CHEMISTRY ORDERABLES Performing Organization Address [facility] Co de Phone Number [facility] [place] [address] * (ABNORMAL) Iron and TIBC (03/28/2016 7:16 AM EDT) [facility] Iron 42(L) 45 - 160 mcg/dL [facility] TIBC 344 250 - 450 mcg/dL [facility] Iron Saturation 12(L) 20 - 50 % [facility] Blood specimen (specimen) 03/28/2016 7:16 AM EDT 03/28/2016 7:31 AM EDT Narrative Resulting Agency Comment Spec In Lab Juan Thomas MD CHEMISTRY ORDERABLES [facility] [place] [address] * (ABNORMAL) Hemoglobin A1c (03/28/2016 7:16 AM EDT) Hemoglobin A1c 5.7(H) 4.3 - 5.6 % [facility] Comment: Reference Range: 4.3 - [...] Mellitus, Diabetes Care 2013; 36: Suppl. 1, S67-71 Estimated Average Glucose 117 mg/dL [facility] Comment: eAG equivalents for HbA1c percentages: HbA1c(%) ?eAG(mg/dL) 6.0 ?126 6.5 ?140 7.0 ?154 7.5 ?169 8.0 ?183 8.5 ?197 9.0 ?212 9.5 ?226 10.0 ? 240 Limitations: The eAG calculation has not been validated on women, individuals below 18 years old and above 70 years old, and individuals with hemoglobinopathies. Additional resources are available on the ADA website: http://[employer]/[facility] TULSAadacalc Jonn PONCE, Yessica J, Sara R, et al. ??Translating the A1C assay into estimated average glucose values. ??Diabetes Care 2008:31(8):1883-4616. Blood specimen (specimen) 03/28/2016 7:16 AM EDT 03/28/2016 7:31 AM EDT Narrative Resulting Agency Comment Spec In Lab Juan Thomas MD CHEMISTRY ORDERABLES [facility] [place] [address] * (ABNORMAL) Comprehensive metabolic panel (non-fasting) (03/28/2016 7:16 AM EDT) Glucose 86 65 - 199 mg/dL [facility] Comment:Diabetes: >=200 mg/d L plus symptoms Blood Urea Nitrogen 17 10 - 20 mg/dL [facility] Creatinine 1.00 0.80 - 1.50 mg/dL [facility] Comment: Please note that the pediatric reference intervals supplied above were not validated at [facility]. Results from pediatric patients should be interpreted in conjunction to the patient's age, height and muscle mass. Sodium 140 135 - 145 mmol/L [facility] Potassium 3.9 3.5 - 5.0 mmol/L [facility] Comment: Please note: ??Patients with WBC >100,000 may have falsely elevated Potassium levels. ??For accurate Potassium quantification in these patients send serum separator tube (gold top) for subsequent determinations. ??Contact the Clinical Chemistry Laboratory if there are any questions. Chloride 101 98 - 107 mmol/L [facility] Carbon Dioxide 29 22 - 31 mmol/L [facility] Anion Gap 10 5 - 15 mmol/L [facility] Calcium 9.2 8.5 - 10.5 mg/dL [facility] Protein, Total 7.3 6.1 - 8.0 gm/dL [facility] Albumin 3.9 3.2 - 5.2 gm/dL [facility] Aspartate Aminotransferase 27 0 - 39 unit/L [facility] Alanine Aminotransferase 35 0 - 55 unit/L [facility] Alkaline Phosphatase 88 40 - 120 unit/L [facility] Bilirubin, Total <0.2(L) 0.2 - 1.3 mg/dL [facility] Bilirubin, Direct <0.1 0.0 - 0.3 mg/dL [facility] [...] the following links into your internet browser. http://[employer]/DHnkdep http://[employer]/DHMCnkf Blood specimen (specimen) 03/28/2016 7:16 AM EDT 03/28/2016 7:31 AM EDT Narrative Resulting Agency Comment Spec In Lab Juan Thomas MD CHEMISTRY ORDERABLES [facility] [place] [address] documented in this encounter Visit Diagnoses Diagnosis Morbid obesity with BMI of 50.0-59.9, adult Morbid obesity [place] (obstructive sleep apnea) Obstructive sleep apnea (adult) (pediatric) Diabetes mellitus type II, controlled Type II or unspecified type diabetes mellitus without mention of complication, not stated as uncontrolled Preop examination Preoperative examination, unspecified documented in this encounter Care Teams Rn Heart Relationship Specialty Start Date End Date Marti Watkins APRN [facility] [address] [place] [address] PCP - General 12/01/13 03/27/16 documented as of this encounter
--- OUTSIDE RECORDS SUMMARY | 2024-06-09 20:24 | XMS_ITS | Encounter Summary ---
Author Organization [facility] [place] [address] Care Team Providers Care Briquette Molder Name Role Phone Radhika Xiao GERALD Primary Care Provider [phone] Reason for Visit * Reason Onset Date Comments Abnormal Labs 03/28/2016 Encounter Details Date Type Department Care Team (Late st Contact Info) Description 03/28/2016 Telephone General Surgery at [facility] [place] [address] Hillary Bennett APRN [facility] [place] [address] Abnormal Labs Social History Tobacco Use Types [...] placed for tests to be performed at [facility]. Await results for further management. Consider video [...] unspecified documented in this encounter Care Teams Briquette Molder Relationship Specialty Start Date End Date Radhika Xiao APRN [address] [facility] [address] PCP - General Family Medicine 03/28/16 documented as of this encounter
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
--- OUTSIDE RECORDS SUMMARY | 2024-06-09 20:24 | XMS_ITS | Encounter Summary ---
[place] [address] Care Team Providers Care Director Financial Services Name Role Phone Radhika Xiao APRN Primary Care Provider Encounter Details Date Type Department Care Team (Latest Contact Info) Description 03/28/2016 7:05 AM EDT Laboratory Appointment Lab [address] [place] [id number] Morbid obesity with BMI of 50.0-59.9, adult; [...] 7:16 AM EDT) Neutrophil % 63.0 % [facility] Neutrophil Absolute 3.39 1.50 - 6.30 x10(3)/[facility] Lymph % 27.7 % [facility] Lymphocytes Abs 1.5 1.0 - 3.6 x10(3)/[facility] Monocyte % 7.6 % [facility] Monocyte Abs 0.4 0.2 - 1.0 x10(3)/[facility] Eos % 1.3 % [facility] Eosinophils Abs 0.1 0.0 - 0.5 x10(3)/[facility] Basophil % 0.2 % [facility] Baso Absolute 0.0 0.0 - 0.2 x10(3)/[facility] Immature Gran % 0.20 % [facility] Comment: Immature granulocytes(IG's)percentage and absolute count will include metamyelocytes, myelocytes, and promyelocytes. Blood smears from CBCs yielding IG's will be scanned manually for concordance. If this scan disagrees with the automated IG or if promyelocytes are noted, a manual differential will be performed. Immature Gran Absolute 0.01 0.00 - 0.05 x10(3)/[facility] Blood specimen (specimen) 03/28/2016 7:16 AM EDT 03/28/2016 7:31 AM EDT Narrative Resulting Agency Comment Spec In Lab Juan Thomas MD HEMATOLOGY ORDERABLE S [facility] [place] [address] * (ABNORMAL) Hemogram (03/28/2016 7:16 AM EDT) White Blood Cell 5.4 4.0 - 10.0 x10(3)/mc L [facility] Red Blood Cell 4.36(L) 4.63 - 6.08 x10(6)/mc L [facility] Hemoglobin 12.5(L) 13.7 - 17.5 gm/dL [facility] Hematocrit 39.3(L) 40.0 - 51.0 % [facility] Mean Cell Volume 90.1 79.0 - 92.0 fL [facility] Mean Cell Hemoglobin 28.7 25.6 - 32.2 pg [facility] Mean Cell Hemoglobin Concentration 31.8(L) 32.0 - 36.5 gm/dL [facility] Platelet 258 145 - 370 x10(3)/ L [facility] RDW Standard Deviation 42.2 35.0 - 46.0 fL [facility] RDW coefficient of variation 12.9 10.9 - 14.4 % [facility] Mean Platelet Volume 9.9 9.0 - 12.0 fL [facility] Blood specimen (specimen) 03/28/2016 7:16 AM EDT 03/28/2016 7:31 AM EDT Narrative Resulting Agency Comment Spec In Lab Juan Thomas MD HEMATOLOGY ORDERABLE S [facility] [place] [address] * TSH (03/28/2016 7:16 AM EDT) Thyroid Stimulating Hormone 3.15 0.27 - 4.20 mcIU/mL [facility] Blood specimen (specimen) 03/28/2016 7:16 AM EDT 03/28/2016 7:31 AM EDT Narrative Resulting Agency Comment Spec In Lab Juan Thomas MD CHEMISTRY ORDERABLES Performing Organization Address City/[facility]/ZIP Co de Phone Number [facility] [place] [address] * Uric acid (03/28/2016 7:16 AM EDT) Uric Acid 7.8 3.5 - 8.5 mg/dL [facility] Blood specimen (specimen) 03/28/2016 7:16 AM EDT 03/28/2016 7:31 AM EDT Narrative Resulting Agency Comment Spec In Lab Juan Thomas MD CHEMISTRY ORDERABLES Performing Organization Address [facility] Co de Phone Number [facility] [place] [address] * Folate, serum (03/28/2016 7:16 AM EDT) Folate 11.7 4.6 - 34.8 ng/mL [facility] Blood specimen (specimen) 03/28/2016 7:16 AM EDT 03/28/2016 7:31 AM EDT Narrative Resulting Agency Comment Spec In Lab Juan Thomas MD CHEMISTRY ORDERABLES Performing Organization Address City/[facility] Co de Phone Number [facility] [place] [address] * Vitamin B12 (03/28/2016 7:16 AM EDT) Vitamin B12 678 207 - 974 pg/mL [facility] Blood specimen (specimen) 03/28/2016 7:16 AM EDT 03/28/2016 7:31 AM EDT Narrative Resulting Agency Comment Spec In Lab Juan Thomas MD CHEMISTRY ORDERABLES Performing Organization Address City/[facility]/ZIP Co de Phone Number [facility] [place] [address] * Vitamin B1, whole blood (03/28/2016 7:16 AM EDT) Vit B1 Lvl Wb (JANUARY) 127 70 - 180 nmol/L [facility] Comment: Test Performed by: [facility] [place] [address] Water Systems Engineer: Rachel Pena, Ph.D. Blood specimen (specimen) 03/28/2016 7:16 AM EDT 03/28/2016 9:20 AM EDT Narrative Resulting Agency Comment Spec In Lab Juan Thomas MD LAB SEND OUT ORDERAB LES Performing Organization Address City/[facility]/ZIP Co de Phone Number [facility] [place] [address] * VIT D Total Evaluation (03/28/2016 7:16 AM EDT) [facility] Signature Vitamin D Total 25 OH [...] be considered to be insufficient or deficient. http://[employer]/DHMCnatlkidneyfoundation http://[employer]/DHMCVitD The IDS iSYS Vitamin D Immunoassay detects both 25-OH Vitamin D2 and 25-OH Vitamin D3, but only a total Vitamin D concentration is reported. Blood specimen (specimen) 03/28/2016 7:16 AM EDT 03/28/2016 7:31 AM EDT Narrative Resulting Agency Comment Spec In Lab Juan Thomas MD CHEMISTRY ORDERABLES Performing Organization Address City/[facility]/ZIP Co de Phone Number [facility] [place] [address] * PTH (03/28/2016 7:16 AM EDT) Parathyroid Hormone 32 15 - 65 pg/mL [facility] Blood specimen (specimen) 03/28/2016 7:16 AM EDT 03/28/2016 7:31 AM EDT Narrative Resulting Agency Comment Spec In Lab Juan Thomas MD CHEMISTRY ORDERABLES Performing Organization Address [facility]/ZIP Co de Phone Number [facility] [place] [address] * Vitamin A (03/28/2016 7:16 AM EDT) [facility] Vitamin A (JANUARY) 40.5 32.5 - 78.0 mcg/dL [facility] Comment: Test Performed by: [facility] [place] [address] Water Systems Engineer: Rachel Pena, Ph.D. Blood specimen (specimen) 03/28/2016 7:16 AM EDT 03/28/2016 9:18 AM EDT Narrative Resulting Agency Comment Spec In Lab Juan Thomas MD LAB SEND OUT ORDERAB LES Performing Organization Address [facility] Co de Phone Number [facility] [place] [address] * Ferritin (03/28/2016 7:16 AM EDT) [facility] Ferritin 42 30 - 400 ng/mL [facility] Comment: Pediatric reference ranges not verified at [facility], interpret with caution. Reference ranges for females greater than 50 years of age approach values for men, i.e., 30-400 ng/mL. Blood specimen (specimen) 03/28/2016 7:16 AM EDT 03/28/2016 7:31 AM EDT Narrative Resulting Agency Comment Spec In Lab Juan Thomas MD CHEMISTRY ORDERABLES Performing Organization Address [facility]/ZIP Co de Phone Number [facility] [place] [address] * (ABNORMAL) Iron and TIBC (03/28/2016 7:16 AM EDT) Iron 42(L) 45 - 160 mcg/dL [facility] TIBC 344 250 - 450 mcg/dL [facility] Iron Saturation 12(L) 20 - 50 % [facility] Blood specimen (specimen) 03/28/2016 7:16 AM EDT 03/28/2016 7:31 AM EDT Narrative Resulting Agency Comment Spec In Lab Juan Thomas MD CHEMISTRY ORDERABLES [facility] [place] [address] * (ABNORMAL) Hemoglobin A1c (03/28/2016 7:16 AM [...] Mellitus, Diabetes Care 2013; 36: Suppl. 1, J57-85 Estimated Average Glucose 117 mg/dL [facility] [...] hemoglobinopathies. Additional resources are available on the [employer] website: [email or web address]/[email or web address] MUSKOGEEadacalc Jonn PONCE, Yessica J, Sara R, et al. ??Translating the A1C assay into estimated average glucose values. ??Diabetes Care 2008:31(8):8719-4021. Blood specimen (specimen) 03/28/2016 7:16 AM EDT 03/28/2016 7:31 AM EDT Narrative Resulting Agency Comment Spec In Lab Juan Thomas MD CHEMISTRY ORDERABLES [facility] [place] [address] * (ABNORMAL) Comprehensive metabolic panel (non-fasting) (03/28/2016 [...] intervals supplied above were not validated at [facility]. Results from pediatric patients should be interpreted [...] the following links into your internet browser. [email or web address]/DHnkdep [email or web address] Blood specimen (specimen) 03/28/2016 7:16 AM EDT 03/28/2016 7:31 AM EDT Narrative Resulting Agency Comment Spec In Lab Juan Thomas MD CHEMISTRY ORDERABLES [facility] [place] [address] documented in this encounter Visit Diagnoses Diagnosis Morbid obesity with BMI of 50.0-59.9, adult Morbid obesity Diabetes mellitus type II, controlled Type II or unspecified type diabetes mellitus without mention of complication, not stated as uncontrolled Preop examination Preoperative examination, unspecified [place] (obstructive sleep apnea) Obstructive sleep apnea (adult) (pediatric) documented in this encounter Care Teams Director Financial Services Relationship Specialty Start Date End Date Radhika Xiao, ONCOLOGIST [address] [facility] [place] [address] PCP - General Family Medicine 03/28/16 documented as of this encounter
--- OUTSIDE RECORDS SUMMARY | 2024-06-09 20:24 | XMS_ITS | Encounter Summary ---
Author Organization Formerly [facility] [place] [address] Care Team Providers Care Speech Language Pathologist Assistant Name Role Phone Radhika Xiao APRN Primary Care Provider Encounter Details Date Type Department Care Team (Late st Contact Info) Description 04/02/[address] [facility] [place] [phone] Rebeca Jiménez APRN [facility] [place] [address] Social History Tobacco Use Types Packs/Day Years [...] on filedocumented in this encounter Care Teams Speech Language Pathologist Assistant Relationship Specialty Start Date End Date Radhika Xiao, SINGER BACK TENDER [address] [place] [address] PCP - General Family Medicine 03/28/16 documented as of this encounter
--- NOTE | 2024-06-09 20:48 | ED.GENADUL_ITS ---
Discharge Plan Disposition Patient Disposition: Home Condition: Stable Discharge Details Clinical Impression: Laceration of foot, left Primary Care Provider: Bonnie Stanford ED Provider: Wlibur Valle Home Meds and New Rx's Prescriptions: Continued sertraline 100 mg tablet 200 mg PO DAILY multivitamin [Daily Multi-Vitamin] 1 EACH tablet 1 tab PO DIRECTED Patient Comments: ascorbic acid (vitamin C) [Vitamin C] 500 MG tablet 500 mg PO DAILY ferrous sulfate 325 MG tablet,delayed release (DR/EC) 1 tab PO DAILY cholecalciferol (vitamin D3) [Vitamin D3] 1,000 UNIT capsule 2,000 unit PO DAILY vitamin [id number] acid 1 EACH tablet 1 ea PO DAILY clonidine HCl 0.1 mg Tablet 0.1 mg PO QHS Discharge Instructions Additional Instructions: Follow-up with your primary care provider as needed If you develop signs of infection such as spreading redness or yellow-white discharge from the wound return to the emergency department for reevaluation HPI General Mode of arrival: ambulatory . Date/Time Provider Initiated Documentation: 06/09/24 20:26 . Limitations to Documentation: no limitations . Information obtained by: patient . History of Present Illness 44 year old M presents to the emergency department with the chief complaint of left foot laceration, described as moderate, Quality is described as aching, and is localized to the left and lower extremity. Patient reports no radiation. Patient started experiencing this hour(s) (14) and it has been constant. No relieving factors improve symptom(s), No exacerbating factors reported . Patient notes no other symptoms.. Patient did receive the following treatments prior to arrival, none Related Data Home Medications ?Medication ?Instructions ?Recorded ?Confirmed multivitamin (Daily Multi-Vitamin 1 tab PO DIRECTED 03/02/13 06/29/22 tablet) ascorbic acid (vitamin C) 500 mg 500 mg PO DAILY 11/26/16 06/29/22 tablet (Vitamin C) cholecalciferol (vitamin D3) 25 2,000 unit PO DAILY 11/26/16 06/29/22 mcg (1,000 unit) capsule (Vitamin D3) ferrous sulfate 325 mg (65 mg 1 tab PO DAILY 11/26/16 06/29/22 iron) tablet,delayed release vitamin B12 500 mcg-folic acid 400 1 ea PO DAILY 11/26/16 06/29/22 mcg tablet clonidine HCl 0.1 mg tablet 0.1 mg PO QHS 02/24/19 06/29/22 sertraline 100 mg tablet 200 mg PO DAILY 07/27/20 06/29/22 Allergies Allergy/AdvReac Type Severity Reaction Status Date / Time erythromycin base AdvReac Intermediate gets Unverified 06/29/22 15:48 burning sensation General Stated Complaint: Laceration DEWAYNE: 4 Review of Systems All systems reviewed & are unremarkable except as noted in HPI and below Constitutional Constitutional: Denies chills, Denies fever(s) and Denies weakness Eyes Eyes: Denies loss of vision Cardiovascular Cardiovascular: Denies chest pain and Denies dyspnea Respiratory Respiratory: Denies cough and Denies dyspnea Gastrointestinal Gastrointestinal: Denies abdominal pain, Denies nausea and Denies vomiting Neurologic Neurologic: Denies loss of vision and Denies weakness Exam Const General: no acute distress Orientation: alert HENRI Head: normal to inspection Ears: external ears normal General nose exam: external nose normal Mouth: moist mucous membranes Eyes General: appearance normal, both eyes and all related structures Neck Neck: normal visual inspection Resp Effort & Inspection: normal respiratory effort and able to speak in complete sentences Cardio Rate: regular rate Skin General skin exam: no rashes or lesions noted Neuro General: patient alert and patient oriented x3 Extrem General: full ROM and capillary refill normal Psych Mental Status: mental status grossly normal Course Vital Signs Vital signs: Vital Signs Temperature 36.4 C 06/09/24 20:17 Pulse 78 06/09/24 20:17 Respiratory Rate 16 06/09/24 20:17 Blood Pressure 129/73 06/09/24 20:17 Pulse Oximetry 97 06/09/24 20:17 Temperature 36.4 C 06/09/24 20:17 Temperature Source Oral 06/09/24 20:17 Pulse 78 06/09/24 20:17 Respiratory Rate 16 06/09/24 20:17 Blood Pressure 129/73 06/09/24 20:17 Blood Pressure Position Sitting 06/09/24 20:17 Pulse Oximetry 97 06/09/24 20:17 Oxygen Delivery Method Room Air 06/09/24 20:17 Oxygen Flow Rate 0 06/09/24 20:17 Pain Level 6 06/09/24 20:17 Medical Decision Making 44-year-old male who is unsure of his tetanus status comes in with a left dorsal foot laceration. He says earlier this morning around 5:30 in the morning glass dropped fell and landed on his left foot, when he attempted to remove it because he laceration to the foot. Denies falls or other injuries. He said pain since he came here for evaluation and also is having trouble controlling bleeding. He appears well on exam speaking fully and no distress. He has a superficial 1 cm laceration to the dorsum of the left midfoot, there is no bony tenderness, there is no active bleeding. He has intact sensation and pulses on exam. Full range of motion of the foot and ankle. I closed the wound with skin adhesive after thoroughly cleaning with sterile water. Will update his tetanus status. Given lack of bony tenderness do not feel x-ray is indicated. The wound is superficial and there is no palpable foreign body and he says the piece of glass was fully intact so doubt foreign body in the wound. 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
[2024-06-09] MEDS: Tetanus & Diphtheria Tox,ADULT 0.5 ML VIAL IM (20:57)
[2024-06-09 21:23] VITALS: BP 129/73; PULSE 78; RESP 16; TEMP 36.4; O2SAT 97
== END 2024-06-09 21:23 | disposition home or self-care (01) ==
PROVIDERS: Emergency Provider Emergency Medicine; PCP Nurse Practitioner Psychiatric/Mental Health
DX: S91.312A Laceration without foreign body, left foot, initial encounter (principal); Z98.84 Bariatric surgery status; F17.200 Nicotine dependence, unspecified, uncomplicated; W25.XXXA Contact with sharp glass, initial encounter; Y93.01 Activity, walking, marching and hiking; Y92.018 Other place in single-family (private) house as the place of occurrence of the external cause; Z23 Encounter for immunization
CPT/HCPCS: 12001; 90471; 90714; 99283

== ENCOUNTER 2025-02-24 15:52 | Outpatient (REF) | payer BC, SELFPAY ==
[2025-02-24 21:29] LABS: Abs Immature Grans 0.01 10^3/uL (0.0-0.06); Absolute Basophil Count 0.02 10^3/uL (0.0-0.2); Absolute Eosinophil Count 0.09 10^3/uL (0.0-0.7); Absolute Monocyte Count 0.52 10^3/uL (0.1-0.8); Absolute Neutrophil Count 2.83 10^3/uL (1.2-6.7); Basophils % 0.4 %; Eosinophils % 1.7 %; HCT 40.6 % (40.0-50.0); HGB 13.6 g/dL (13.5-17.5); Immature Grans % 0.2 %; Lymphocytes % 34.2 %; MCH 31.1 pg (27.0-33.0); MCHC 33.5 % (32.0-36.0); MCV 93 fL (80-95); MPV 10.4 fL (8.0-11.0); Monocytes % 9.9 %; Neutrophils % 53.6 %; Platelet Count 265 10^3/uL (130-400); RBC 4.38 10^6/uL (4.36-5.78); RDW-SD 41.2 fL; WBC 5.27 10^3/uL (4.4-10.8)
[2025-02-24 21:48] LABS: Hemoglobin A1C 5.5 % (<5.7)
[2025-02-24 22:13] LABS: ALT 45 U/L (16-63); AST 28 U/L (15-37); Albumin 4.2 g/dL (3.4-5.0); Alkaline Phosphatase 87 U/L (46-116); Anion Gap 6.7 mmol/L (3-11); BUN 16 mg/dL (7-18); Bilirubin, Total 0.6 mg/dL (0.2-1.0); CO2 32.3 mmol/L (21.0-32.0); CREATININE 1.1 mg/dL (0.70-1.30); Calcium 8.9 mg/dL (8.5-10.1); Calculated LDL 134 mg/dL (<100); Chloride 102 mmol/L (98-107); Cholesterol 199 mg/dL (<200); Estimated GFR 85.95 (mL/min/1.73m2); Glucose 91 mg/dL (74-106); HDL Cholesterol 51 mg/dL (>or=40); Sodium 141 mmol/L (136-145); TSH (W/Ref FT4) 2.01 uIU/mL (0.36-3.74); Total Protein 7.1 g/dL (6.4-8.2); Triglyceride 71 mg/dL (<150); Vitamin B12 702 pg/mL (193-986)
== END 2025-02-24 15:53 | disposition home or self-care (01) ==
LOC: NCHCN 15:52
PROVIDERS: PCP Nurse Practitioner Family; Visit Provider Student in an Organized Health Care Education/Training Program
DX: E78.5 Hyperlipidemia, unspecified (principal); Z98.84 Bariatric surgery status; F41.9 Anxiety disorder, unspecified; Z13.1 Encounter for screening for diabetes mellitus
CPT/HCPCS: 80053; 80061; 82607; 83036; 84443; 85025